=== PATIENT | male | born 1960 | race Caucasian/White ===

== ENCOUNTER 2018-02-16 21:52 | Inpatient (IN) | payer MEDICAID ==
[~2018-02-16] VITALS: Ht 182.9 cm; Wt 90.7 kg
[2018-02-16 22:05] VITALS: BP 112/75
[2018-02-16] MEDS ORDERED: dilTIAZem HCl 25mg/5ml Inj IVP ONE (22:15)
[2018-02-16] MEDS ORDERED: Ampicillin/Sulbactam Sod 3 GM in NS 110 ML IVPB ONE (22:15)
[2018-02-16] MEDS ORDERED: Vancomycin 1 GM in D5W 275 ML IVPB ONE (22:15)
--- NOTE | 2018-02-16 23:09 | Diagnostic Imaging Report ---
EXAM: XR Chest, 1 View CLINICAL HISTORY: SOB TECHNIQUE: Frontal view of the chest. COMPARISON: No relevant prior studies available. FINDINGS: Lungs: Bibasilar subsegmental atelectasis. Pleural space: Unremarkable. No pneumothorax. Heart: Cardiac size is enlarged. Mediastinum: Unremarkable. Bones/joints: Unremarkable. IMPRESSION: Cardiomegaly with bibasilar subsegmental atelectasis.
[2018-02-16 23:34] LABS: BASOPHILS % (AUTO) 1.5 % (0.0-2.0); EOSINOPHILS % (AUTO) 6.1 % (0.0-3.0); HEMOGLOBIN 14.9 G/DL (14.2-18.0); LYMPHOCYTES % (AUTO) 24.8 % (20.0-45.0); MEAN CORPUSCULAR VOLUME 79 FL (80-99); MONOCYTES % (AUTO) 5.5 % (1.0-10.0); NEUTROPHILS % (AUTO) 62.1 % (45.0-75.0); PLATELET COUNT 155 K/UL (150-450); RED BLOOD COUNT 5.68 M/UL (4.70-6.10); RED CELL DISTRIBUTION WIDTH 16.5 % (11.6-14.8); WHITE BLOOD COUNT 7.7 K/UL (4.8-10.8)
[2018-02-16 23:37] LABS: APPEARANCE,URINE CLEAR; BILIRUBIN, URINE NEGATIVE (NEGATIVE); COLOR,URINE PALE YELLOW; GLUCOSE, URINE (UA) 3+ (NEGATIVE); KETONES,URINE NEGATIVE (NEGATIVE); LEUKOCYTE ESTERASE ,URINE NEGATIVE (NEGATIVE); NITRITE,URINE NEGATIVE (NEGATIVE); PH,URINE 5 (4.5-8.0); PROTEIN,URINE NEGATIVE (NEGATIVE); UROBILINOGEN,URINE NORMAL MG/DL (0.0-1.0)
[2018-02-17] MEDS ORDERED: LYRICA75 M1 ORAL (00:16)
[2018-02-17] MEDS ORDERED: IBUPROFEN600 MG ORAL (00:16)
[2018-02-17] MEDS ORDERED: PANTOPRAZOLE SO40 MG ORAL (00:17)
[2018-02-17] MEDS ORDERED: LISINOPRIL10 MG ORAL (00:17)
[2018-02-17] MEDS ORDERED: ATORVASTATIN CA40 MG ORAL (00:17)
[2018-02-17] MEDS ORDERED: BUMETANIDE2 MG ORAL (00:18)
[2018-02-17] MEDS ORDERED: METFORMIN HCL1000 M1 ORAL (00:19)
[2018-02-17 00:27] LABS: ANION GAP 6 mmol/L (5-15); BLOOD UREA NITROGEN 61 mg/dL (7-18); CALCIUM 8.7 MG/DL (8.5-10.1); CARBON DIOXIDE 30 MMOL/L (21-32); CHLORIDE 101 MMOL/L (98-107); CREATININE 1.7 MG/DL (0.55-1.30); POTASSIUM 4.4 MMOL/L (3.5-5.1); SODIUM 137 MMOL/L (136-145)
[2018-02-17 00:41] LABS: ALANINE AMINOTRANSFERASE 31 U/L (12-78); ALBUMIN 3.1 G/DL (3.4-5.0); ALBUMIN/GLOBULIN RATIO 0.6 (1.0-2.7); ALKALINE PHOSPHATASE 190 U/L (46-116); ASPARTATE AMINO TRANSFERASE 22 U/L (15-37); BILIRUBIN,DIRECT 0.7 MG/DL (0.0-0.3); BILIRUBIN,TOTAL 1.3 MG/DL (0.2-1.0); CKMB 3.4 NG/ML (0.0-3.6); CREATINE KINASE 83 U/L (26-308); PHOSPHORUS 2.5 MG/DL (2.5-4.9)
[2018-02-17 01:45] VITALS: BP 114/72
[2018-02-17 03:58] VITALS: BP 101/63
[2018-02-17] MEDS: Metoprolol 25mg tab ORAL SCH ×4 (04:00→22:33)
[2018-02-17] MEDS ORDERED: dilTIAZem HCl 30mg tab ORAL SCH (04:00)
[2018-02-17 05:03] VITALS: BP 109/76
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
[2018-02-17] MEDS ORDERED: Bumetanide 2.5mg/10ml Inj IVP SCH (09:00)
[2018-02-17] MEDS: Lyrica 50mg cap ORAL SCH ×3 (09:00→17:34)
[2018-02-17] MEDS ORDERED: metFORMIN 500mg tab ORAL SCH (09:00)
[2018-02-17] MEDS ORDERED: Lisinopril 10mg tab ORAL SCH (09:00)
[2018-02-17] MEDS ORDERED: Heparin 5000 units/ml inj SUBQ SCH ×2 (09:00→21:00)
[2018-02-17] MEDS ORDERED: Lisinopril 20mg tab ORAL SCH (09:00)
[2018-02-17] MEDS ORDERED: Aspirin Baby 81mg ORAL SCH (09:00)
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
--- NOTE | 2018-02-17 16:00 | History and Physical Report ---
DATE OF ADMISSION: 02/16/2018 HISTORY OF PRESENT ILLNESS: This is a 57-year-old male, who came to the emergency room for having atrial fibrillation with rapid ventricular rate. The patient also had a chest pain. Currently, he is not cooperative and not giving any much history, but he claims he has a history of diabetes and hypertension. MEDICATIONS: He takes medication, does not remember. ALLERGIES: NKA. FAMILY HISTORY: Noncontributory. SOCIAL HISTORY: He claims [facility]. He denies any alcohol and denies any smoking. PHYSICAL EXAMINATION: GENERAL: This is an elderly obese white male, who is currently in the bed, uncooperative and not giving any history. He is also refusing for telemetry bed as well as some medication. VITAL SIGNS: His current blood pressure 109/76, pulse 108, respirations 20, and temperature 98.2 degrees. SKIN: Fair skin turgor. HEENT: No JVD. CHEST: Bilaterally clear. CARDIOVASCULAR: Regular rhythm. No gallop. No murmur. ABDOMEN: Soft. Positive bowel sounds. Nontender. 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 GENITOURINARY: Deferred. LABORATORY AND DIAGNOSTIC DATA: White count 7.7, hemoglobin 15, hematocrit 45, and platelets of 155,000. Chemistry panel, sodium 137, potassium , BUN 61, creatinine 1.7, glucose is 290, and his lactic acid 2.20 to 1.80 and troponin 0.04. ASSESSMENT AND PLAN: 1. Atrial fibrillation with rapid ventricular rate. 2. Acute renal failure. 3. Possible sepsis. 4. Cellulitis. 5. Chest pain. PLAN: We will admit on a tele bed. Rule out of SC. Consider Cardiology consult as well as Nephrology consult. Monitor BUN and creatinine. We will currently continue current treatment. The patient is currently on Lipitor and heparin for DVT prophylaxis. Continue lisinopril, aspirin, Lasix, metformin, metoprolol, Cardizem, and ibuprofen. His heart rate is controlled. The patient probably needs 2D echo and cardiac workup. Tom Cuevas M.D. DR: WILLIAM JOB#: [id number] CC:
[2018-02-17 17:15] VITALS: BP 117/87
[2018-02-17 20:00] VITALS: BP 138/100
[2018-02-17] MEDS ORDERED: Atorvastatin 20mg tab ORAL SCH (21:00)
[2018-02-17] MEDS: NovoLOG Insulin Flexpen SUBQ SCH (22:31)
[2018-02-17] MEDS: Atorvastatin 20mg tab ORAL SCH (22:32)
[2018-02-17] MEDS: dilTIAZem HCl 30mg tab ORAL SCH (22:35)
[2018-02-18] VITALS: BP 125/86
[2018-02-18 04:00] VITALS: BP 98/63
[2018-02-18] MEDS: NovoLOG Insulin Flexpen SUBQ SCH ×4 (06:06→20:32)
[2018-02-18 06:11] LABS: BASOPHILS % (AUTO) 1.6 % (0.0-2.0); EOSINOPHILS % (AUTO) 3.7 % (0.0-3.0); HEMATOCRIT 42.7 % (42.0-52.0); HEMOGLOBIN 13.7 G/DL (14.2-18.0); LYMPHOCYTES % (AUTO) 19.7 % (20.0-45.0); MEAN CORPUSCULAR VOLUME 80 FL (80-99); MONOCYTES % (AUTO) 5.7 % (1.0-10.0); NEUTROPHILS % (AUTO) 69.2 % (45.0-75.0); PLATELET COUNT 140 K/UL (150-450); RED BLOOD COUNT 5.32 M/UL (4.70-6.10); RED CELL DISTRIBUTION WIDTH 16.7 % (11.6-14.8)
[2018-02-18 07:16] LABS: ALANINE AMINOTRANSFERASE 26 U/L (12-78); ALBUMIN 2.6 G/DL (3.4-5.0); ALBUMIN/GLOBULIN RATIO 0.6 (1.0-2.7); ALKALINE PHOSPHATASE 182 U/L (46-116); ANION GAP 9 mmol/L (5-15); ASPARTATE AMINO TRANSFERASE 17 U/L (15-37); BILIRUBIN,TOTAL 1.1 MG/DL (0.2-1.0); BLOOD UREA NITROGEN 43 mg/dL (7-18); CALCIUM 8.6 MG/DL (8.5-10.1); CARBON DIOXIDE 27 MMOL/L (21-32); CHLORIDE 104 MMOL/L (98-107); CHOLESTEROL 62 MG/DL (< 200); CREATININE 1.3 MG/DL (0.55-1.30); FERRITIN 65 NG/ML (8-388); HDL CHOLESTEROL 31 MG/DL (40-60); PHOSPHORUS 2.2 MG/DL (2.5-4.9); POTASSIUM 4.2 MMOL/L (3.5-5.1); SODIUM 140 MMOL/L (136-145); TRIGLYCERIDES 54 MG/DL (30-150)
[2018-02-18 07:19] LABS: BILIRUBIN,DIRECT 0.4 MG/DL (0.0-0.3)
[2018-02-18 08:20] VITALS: BP 110/74
[2018-02-18 08:50] LABS: % IRON SATURATION 10 % (15-50); IRON 31 ug/dL (50-175); TOTAL IRON BINDING CAPACITY 300 ug/dL (250-450)
[2018-02-18] MEDS ORDERED: Lisinopril 2.5mg tab ORAL SCH ×2 (09:00)
[2018-02-18] MEDS: dilTIAZem HCl 30mg tab ORAL SCH ×2 (09:03→20:33)
[2018-02-18] MEDS: Metoprolol 25mg tab ORAL SCH (09:04)
[2018-02-18] MEDS: Lyrica 50mg cap ORAL SCH ×3 (09:04→18:08)
[2018-02-18] MEDS: Eliquis 2.5mg tablet ORAL SCH ×2 (09:05→18:08)
[2018-02-18] MEDS: Aspirin Baby 81mg ORAL SCH (09:05)
--- NOTE | 2018-02-18 09:13 | Consultation ---
Consult Note Consult Note HEMATOLOGY-ONCOLOGY CONSULTATION REFERRING MD: Luis Eduardo Espino REASON FOR CONSULT: Thrombocytopenia DATE OF CONSULT: 02/18/2018 HISTORY OF PRESENT ILLNESS: This is a 57-year-old male, who came to the emergency room for having atrial fibrillation with rapid ventricular rate. The patient also had a chest pain. Currently, he is not cooperative and not giving any much history, but he claims he has a history of diabetes and hypertension. Hematology services consulted for the evaluation of thrombocytopenia and anemia. PAST MEDICAL HISTORY: Hypertension, dm PAST SURGICAL HISTORY: Unknown ALLERGIES: NKA. FAMILY HISTORY: Noncontributory. SOCIAL HISTORY: He claims he lives in [facility]. He denies any alcohol and denies any smoking. ROS: Unable to obtain PHYSICAL EXAMINATION: GENERAL: This is an elderly obese white male, who is currently in the bed, uncooperative and not giving any history. He is also refusing for telemetry bed as well as some medication. VITAL SIGNS: His current blood pressure 109/76, pulse 108, respirations 20, and temperature 98.2 degrees. SKIN: Fair skin turgor. HEENT: No JVD. CHEST: Bilaterally clear. CARDIOVASCULAR: Regular rhythm. No gallop. No murmur. ABDOMEN: Soft. Positive bowel sounds. Nontender. 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 GENITOURINARY: Deferred. Last 24 Hour Vital Signs Date Time Temp Pulse Resp B/P (MAP) Pulse Ox O2 Delivery O2 Flow Rate FiO2 02/18/18 08:20 98.0 114 18 110/74 (86) 97 02/18/18 04:00 97.4 83 18 98/63 (75) 98 02/18/18 00:00 98.2 130 17 125/86 (99) 95 02/17/18 22:35 130 138/100 02/17/18 22:33 130 138/100 02/17/18 21:00 Room Air 02/17/18 20:00 98.9 132 17 138/100 (113) 99 130 02/17/18 17:15 97.9 115 18 117/87 (97) 100 Current Medications Medications (Trade) Dose Ordered Sig/Roseline Route PRN Reason Start Time Stop Time Status Last Admin Dose Admin Apixaban (Eliquis) 5 mg BID ORAL 02/18/18 09:00 12/18/18 08:59 Aspirin (ASA) 81 mg DAILY ORAL 02/18/18 09:00 03/19/18 08:59 Atorvastatin Calcium (Lipitor) 40 mg BEDTIME ORAL 02/17/18 21:00 03/19/18 20:59 02/17/18 22:32 Dextrose (Dextrose 50%) 25 ml Q30M PRN IV Hypoglycemia 02/17/18 22:00 03/19/18 21:59 Dextrose (Dextrose 50%) 50 ml Q30M PRN IV Hypoglycemia 02/17/18 14:30 03/19/18 02:59 Dextrose (Dextrose 50%) 50 ml Q30M PRN IV Hypoglycemia 02/17/18 22:00 03/19/18 21:59 Diltiazem HCl (Cardizem) 15 mg BID@0900,2100 ORAL 02/17/18 21:00 03/19/18 03:59 02/17/18 22:35 Insulin Aspart (NovoLOG) BEFORE MEALS AND HS SUBQ 02/18/18 06:30 03/20/18 06:29 02/18/18 06:06 Lisinopril (Zestril) 5 mg DAILY ORAL 02/18/18 09:00 03/19/18 08:59 Metoprolol Tartrate (Lopressor) 25 mg EVERY 12 HOURS ORAL 02/17/18 21:00 03/19/18 03:59 02/17/18 22:33 Nateglinide (Starlix) 120 mg TIAC ORAL 02/17/18 16:30 03/19/18 16:29 02/18/18 06:06 Pantoprazole (Protonix) 40 mg BEFORE BREAKFAST ORAL 02/18/18 06:30 03/19/18 06:29 02/18/18 06:07 Pregabalin (Lyrica) 100 mg THREE TIMES A DAY ORAL 02/17/18 18:00 03/19/18 08:59 02/17/18 17:34 Sodium Chloride 1,000 ml @ 75 mls/hr [id number] IV 02/17/18 20:25 03/19/18 20:24 02/17/18 22:40 Laboratory Tests Test 02/18/18 05:05 White Blood Count 8.0 K/UL (4.8-10.8) Red Blood Count 5.32 M/UL (4.70-6.10) Hemoglobin 13.7 G/DL (14.2-18.0) L Hematocrit 42.7 % (42.0-52.0) Mean Corpuscular Volume 80 FL (80-99) Mean Corpuscular Hemoglobin 25.8 PG (27.0-31.0) L Mean Corpuscular Hemoglobin Concent 32.2 G/DL (32.0-36.0) Red Cell Distribution Width 16.7 % (11.6-14.8) H Platelet Count 140 K/UL (150-450) L Mean Platelet Volume 8.8 FL (6.5-10.1) Neutrophils (%) (Auto) 69.2 % (45.0-75.0) Lymphocytes (%) (Auto) 19.7 % (20.0-45.0) L Monocytes (%) (Auto) 5.7 % (1.0-10.0) Eosinophils (%) (Auto) 3.7 % (0.0-3.0) H Basophils (%) (Auto) 1.6 % (0.0-2.0) Sodium Level 140 MMOL/L (136-145) Potassium Level 4.2 MMOL/L (3.5-5.1) Chloride Level 104 MMOL/L (98-107) Carbon Dioxide Level 27 MMOL/L (21-32) Anion Gap 9 mmol/L (5-15) Blood Urea Nitrogen 43 mg/dL (7-18) H Creatinine 1.3 MG/DL (0.55-1.30) Estimat Glomerular Filtration Rate 57.3 mL/min (>60) Glucose Level 213 MG/DL (74-106) H Hemoglobin A1c 9.8 % (4.3-6.0) H Uric Acid 9.7 MG/DL (2.6-7.2) H Calcium Level 8.6 MG/DL (8.5-10.1) Phosphorus Level 2.2 MG/DL (2.5-4.9) L Magnesium Level 1.7 MG/DL (1.8-2.4) L Iron Level Pending Unsaturated Iron Binding Pending Ferritin 65 NG/ML (8-388) Total Bilirubin 1.1 MG/DL (0.2-1.0) H Direct Bilirubin 0.4 MG/DL (0.0-0.3) H Aspartate Amino Transf (AST/SGOT) 17 U/L (15-37) Alanine Aminotransferase (ALT/SGPT) 26 U/L (12-78) Alkaline Phosphatase 182 U/L (46-116) H Troponin I 0.033 ng/mL (0.000-0.056) Pro-B-Type Natriuretic Peptide 4503 pg/mL (0-125) H Total Protein 7.1 G/DL (6.4-8.2) Albumin 2.6 G/DL (3.4-5.0) L Globulin 4.5 g/dL Albumin/Globulin Ratio 0.6 (1.0-2.7) L Triglycerides Level 54 MG/DL (30-150) Cholesterol Level 62 MG/DL (< 200) LDL Cholesterol 40 mg/dL (<100) HDL Cholesterol 31 MG/DL (40-60) L Cholesterol/HDL Ratio 2.0 (3.3-4.4) L Vitamin B12 Level Pending Folate Pending Thyroid Stimulating Hormone (TSH) 2.139 uiU/mL (0.358-3.740) ASSESSMENT AND PLAN: # Thrombocytopenia. Potential causes multifactorial. Evaluate liver and viral etiologies to begin. Also could be related to underlying medications. --> Cont to monitor for improvement --> Peripheral smear has been reviewed, no blasts --> Hep panel and HIV have been ordered. --> US abd to evaluate for cirrhosis and hsm ordered. --> Meds have been reviewed. --> ok for ppx if plt count <20k and fever, or if plt <10k without fever # Anemia. Mild, hgb currently >13, no w/u required at this time. --> Cont to monitor for stability # Atrial fibrillation with rapid ventricular rate. --> Pt in tele unit --> The patient is currently on Lipitor and heparin for DVT prophylaxis. --> HR is controlled # Acute renal failure. --> Monitor BUN and creatinine # Possible sepsis. # Cellulitis. # Chest pain. GREATLY APPRECIATE CONSULTATION Javier Lujan MD Feb 18, 2018 09:13
[2018-02-18] MEDS: Norco 5mg/325mg tab ORAL PRN ×2 (11:21→18:56)
[2018-02-18 12:00] VITALS: BP 108/76
[2018-02-18] MEDS ORDERED: Isovue-370 150ml vial INJ PRN (13:45)
--- NOTE | 2018-02-18 13:46 | Nephrology Progress Note ---
Assessment/Plan Problem List: (1) Hyperglycemia (2) Drug abuse (3) Acute renal failure Assessment Renal failure- Acute on Chronic Urine + amphetamin and THC Hyperglycemia Obesity Plan adjust BP meds and BS meds 2D echo [facility] monitor renal parameters Avoid Nephrotoxics Subjective ROS Limited/Unobtainable: No Objective Objective Last 24 Hour Vital Signs Date Time Temp Pulse Resp B/P (MAP) Pulse Ox O2 Delivery O2 Flow Rate FiO2 02/18/18 12:00 97.4 96 20 108/76 (87) 98 02/18/18 09:05 110/74 02/18/18 09:04 114 110/74 02/18/18 09:03 114 110/74 02/18/18 09:00 Room Air 02/18/18 08:20 98.0 114 18 110/74 (86) 97 02/18/18 04:00 97.4 83 18 98/63 (75) 98 02/18/18 00:00 98.2 130 17 125/86 (99) 95 02/17/18 22:35 130 138/100 02/17/18 22:33 130 138/100 02/17/18 21:00 Room Air 02/17/18 20:00 98.9 132 17 138/100 (113) 99 130 02/17/18 17:15 97.9 115 18 117/87 (97) 100 Intake and Output 02/17/18 02/18/18 19:00 07:00 Intake Total 240 ml 2565 ml Output Total 1000 ml Balance 240 ml 1565 ml Intake Oral 240 ml 1440 ml IV Total 525 ml Other 600 ml Output Urine Total 1000 ml # Voids 2 3 Laboratory Tests 02/18/18 05:05: White Blood Count 8.0, Red Blood Count 5.32, Hemoglobin 13.7L, Hematocrit 42.7, Mean Corpuscular Volume 80, Mean Corpuscular Hemoglobin 25.8L, Mean Corpuscular Hemoglobin Concent 32.2, Red Cell Distribution Width 16.7H, Platelet Count 140L , Mean Platelet Volume 8.8, Neutrophils (%) (Auto) 69.2, Lymphocytes (%) (Auto) 19.7L, Monocytes (%) (Auto) 5.7, Eosinophils (%) (Auto) 3.7H, Basophils (%) ( Auto) 1.6, Sodium Level 140, Potassium Level 4.2, Chloride Level 104, Carbon Dioxide Level 27, Anion Gap 9, Blood Urea Nitrogen 43H, Creatinine 1.3, Estimat Glomerular Filtration Rate 57.3, Glucose Level 213H, Hemoglobin A1c 9.8H, Uric Acid 9.7H, Calcium Level 8.6, Phosphorus Level 2.2L, Magnesium Level 1.7L, Iron Level 31L, Total Iron Binding Capacity 300, Percent Iron Saturation 10L, Unsaturated Iron Binding 269, Ferritin 65, Total Bilirubin 1.1H, Direct Bilirubin 0.4H, Aspartate Amino Transf (AST/SGOT) 17, Alanine Aminotransferase ( ALT/SGPT) 26, Alkaline Phosphatase 182H, Troponin I 0.033, Pro-B-Type Natriuretic Peptide 4503H, Total Protein 7.1, Albumin 2.6L, Globulin 4.5, Albumin/Globulin Ratio 0.6L, Triglycerides Level 54, Cholesterol Level 62, LDL Cholesterol 40, HDL Cholesterol 31L, Cholesterol/HDL Ratio 2.0L, Vitamin B12 Level 769, Folate 13.0, Thyroid Stimulating Hormone (TSH) 2.139 Height (Feet): 6 Height (Inches): 0.00 Weight (Pounds): 200 General Appearance: no apparent distress Cardiovascular: tachycardia Respiratory/Chest: decreased breath sounds Abdomen: soft Jordon Bernard MD Feb 18, 2018 13:46
[2018-02-18] MEDS: Phospha 250 Neutral tab ORAL SCH ×2 (13:48→18:08)
[2018-02-18] MEDS: Magnesium Oxide 400mg tab ORAL SCH ×2 (13:48→18:08)
--- NOTE | 2018-02-18 15:00 | Progress Note ---
DATE: 02/18/2018 SUBJECTIVE: This is an elderly male, currently sitting in the bed, more cooperative, now complaining of left-sided lower rib pain as well as atrial fibrillation with rapid ventricular rate, refusing for monitor. PHYSICAL EXAMINATION: VITAL SIGNS: Blood pressure 108/76, pulse 96, temperature 97.4 degrees. Heart rate is better. CHEST: Bilaterally clear. CARDIOVASCULAR: Regular rhythm. ABDOMEN: Soft. EXTREMITIES: erythema and edema. GENITOURINARY: Deferred. LABORATORY AND DIAGNOSTIC DATA: White counts 8000, hemoglobin 14, hematocrit 42, platelets 140. Chemistry panel, sodium 140, potassium 4.2, BUN 43, creatinine 1.3, glucose 213. Lactic acid is improving. ASSESSMENT: 1. Chest pain. 2. Leg edema. 3. Cellulitis. 4. Generalized weakness. PLAN: 1. We will discuss with the patient. 2. We will currently continue his medical treatment. 3. Continue antibiotics. 4. He has IV line now. 5. Continue Tylenol. 6. Continue and lisinopril. 7. Check chest x-ray and x-ray for rib film. 8. Continue supportive treatment. Tom Cuevas M.D. DR: Efrain JOB#: [id number] CC:
[2018-02-18 16:00] VITALS: BP 123/75
[2018-02-18 19:58] VITALS: BP 111/69
--- NOTE | 2018-02-18 20:17 | Cardiology Progress Note ---
Assessment/Plan Assessment/Plan The patient is seen and examined, full consult note will be dictated. Objective Last 24 Hour Vital Signs Date Time Temp Pulse Resp B/P (MAP) Pulse Ox O2 Delivery O2 Flow Rate FiO2 02/18/18 19:58 97.5 113 17 111/69 (83) 98 02/18/18 16:00 97.6 75 20 123/75 (91) 98 02/18/18 12:00 97.4 96 20 108/76 (87) 98 02/18/18 09:05 110/74 02/18/18 09:04 114 110/74 02/18/18 09:03 114 110/74 02/18/18 09:00 Room Air 02/18/18 08:20 98.0 114 18 110/74 (86) 97 02/18/18 04:00 97.4 83 18 98/63 (75) 98 02/18/18 00:00 98.2 130 17 125/86 (99) 95 02/17/18 22:35 130 138/100 02/17/18 22:33 130 138/100 02/17/18 21:00 Room Air Intake and Output 02/17/18 02/18/18 19:00 07:00 Intake Total 240 ml 2565 ml Output Total 1000 ml Balance 240 ml 1565 ml Intake Oral 240 ml 1440 ml IV Total 525 ml Other 600 ml Output Urine Total 1000 ml # Voids 2 3 Laboratory Tests Test 02/18/18 05:05 White Blood Count 8.0 K/UL (4.8-10.8) Red Blood Count 5.32 M/UL (4.70-6.10) Hemoglobin 13.7 G/DL (14.2-18.0) L Hematocrit 42.7 % (42.0-52.0) Mean Corpuscular Volume 80 FL (80-99) Mean Corpuscular Hemoglobin 25.8 PG (27.0-31.0) L Mean Corpuscular Hemoglobin Concent 32.2 G/DL (32.0-36.0) Red Cell Distribution Width 16.7 % (11.6-14.8) H Platelet Count 140 K/UL (150-450) L Mean Platelet Volume 8.8 FL (6.5-10.1) Neutrophils (%) (Auto) 69.2 % (45.0-75.0) Lymphocytes (%) (Auto) 19.7 % (20.0-45.0) L Monocytes (%) (Auto) 5.7 % (1.0-10.0) Eosinophils (%) (Auto) 3.7 % (0.0-3.0) H Basophils (%) (Auto) 1.6 % (0.0-2.0) Sodium Level 140 MMOL/L (136-145) Potassium Level 4.2 MMOL/L (3.5-5.1) Chloride Level 104 MMOL/L (98-107) Carbon Dioxide Level 27 MMOL/L (21-32) Anion Gap 9 mmol/L (5-15) Blood Urea Nitrogen 43 mg/dL (7-18) H Creatinine 1.3 MG/DL (0.55-1.30) Estimat Glomerular Filtration Rate 57.3 mL/min (>60) Glucose Level 213 MG/DL (74-106) H Hemoglobin A1c 9.8 % (4.3-6.0) H Uric Acid 9.7 MG/DL (2.6-7.2) H Calcium Level 8.6 MG/DL (8.5-10.1) Phosphorus Level 2.2 MG/DL (2.5-4.9) L Magnesium Level 1.7 MG/DL (1.8-2.4) L Iron Level 31 ug/dL (50-175) L Total Iron Binding Capacity 300 ug/dL (250-450) Percent Iron Saturation 10 % (15-50) L Unsaturated Iron Binding 269 ug/dL (112-346) Ferritin 65 NG/ML (8-388) Total Bilirubin 1.1 MG/DL (0.2-1.0) H Direct Bilirubin 0.4 MG/DL (0.0-0.3) H Aspartate Amino Transf (AST/SGOT) 17 U/L (15-37) Alanine Aminotransferase (ALT/SGPT) 26 U/L (12-78) Alkaline Phosphatase 182 U/L (46-116) H Troponin I 0.033 ng/mL (0.000-0.056) Pro-B-Type Natriuretic Peptide 4503 pg/mL (0-125) H Total Protein 7.1 G/DL (6.4-8.2) Albumin 2.6 G/DL (3.4-5.0) L Globulin 4.5 g/dL Albumin/Globulin Ratio 0.6 (1.0-2.7) L Triglycerides Level 54 MG/DL (30-150) Cholesterol Level 62 MG/DL (< 200) LDL Cholesterol 40 mg/dL (<100) HDL Cholesterol 31 MG/DL (40-60) L Cholesterol/HDL Ratio 2.0 (3.3-4.4) L Vitamin B12 Level 769 PG/ML (193-986) Folate 13.0 NG/ML (8.6-58.9) Thyroid Stimulating Hormone (TSH) 2.139 uiU/mL (0.358-3.740) Microbiology Date/Time Source Procedure Growth Status 02/17/18 06:50 Rectum Gram Stain - Final Resulted 02/17/18 06:50 Rectum Wound Culture Pending Resulted 02/17/18 00:36 Rectum Received Sudarshan Stuart MD Feb 18, 2018 20:17
[2018-02-18] MEDS: Atorvastatin 20mg tab ORAL SCH (20:33)
[2018-02-18] MEDS ORDERED: Digoxin 0.125mg tab ORAL SCH (20:45)
[2018-02-18] MEDS ORDERED: Metoprolol Tartrate 50mg tab ORAL SCH (21:00)
[2018-02-18] MEDS: Spironolactone 25mg tab ORAL SCH (21:07)
[2018-02-18] MEDS: Carvedilol 6.25mg Tab ORAL SCH (21:07)
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
[2018-02-19 00:14] VITALS: BP 109/73
[2018-02-19 04:00] VITALS: BP 109/61
[2018-02-19] MEDS: NovoLOG Insulin Flexpen SUBQ SCH ×4 (05:48→20:43)
[2018-02-19 08:00] VITALS: BP 101/67
[2018-02-19] MEDS: Lyrica 50mg cap ORAL SCH ×3 (09:07→17:14)
[2018-02-19] MEDS: Magnesium Oxide 400mg tab ORAL SCH ×3 (09:07→17:14)
[2018-02-19] MEDS: Phospha 250 Neutral tab ORAL SCH ×3 (09:07→17:14)
[2018-02-19] MEDS: Aspirin Baby 81mg ORAL SCH (09:07)
[2018-02-19] MEDS: Carvedilol 6.25mg Tab ORAL SCH ×2 (09:08→20:30)
[2018-02-19] MEDS: Spironolactone 25mg tab ORAL SCH (09:08)
[2018-02-19] MEDS: Eliquis 2.5mg tablet ORAL SCH ×2 (09:41→17:14)
--- NOTE | 2018-02-19 11:05 | Nephrology Progress Note ---
Assessment/Plan Problem List: (1) Hyperglycemia (2) Drug abuse (3) Acute renal failure Assessment Renal failure- Acute on Chronic Urine + amphetamin and THC Hyperglycemia Obesity Plan adjust BP meds and BS meds 2D echo Kidney [facility] monitor renal parameters Avoid Nephrotoxics Subjective ROS Limited/Unobtainable: No Constitutional: Reports: malaise Objective Objective Last 24 Hour Vital Signs Date Time Temp Pulse Resp B/P (MAP) Pulse Ox O2 Delivery O2 Flow Rate FiO2 02/19/18 09:08 123 101/67 02/19/18 09:00 Room Air 02/19/18 08:00 97.3 123 18 101/67 (78) 100 02/19/18 04:00 96.4 102 20 109/61 (77) 100 02/19/18 00:14 98.2 99 19 109/73 (85) 90 02/18/18 21:19 Room Air 02/18/18 21:07 113 02/18/18 21:07 113 111/69 02/18/18 20:33 113 111/69 02/18/18 20:33 113 111/69 02/18/18 19:58 97.5 113 17 111/69 (83) 98 02/18/18 16:00 97.6 75 20 123/75 (91) 98 02/18/18 12:00 97.4 96 20 108/76 (87) 98 Intake and Output 02/18/18 02/19/18 19:00 07:00 Intake Total 800 ml Output Total 600 ml Balance 200 ml Intake Oral 800 ml Output Urine Total 600 ml # Voids 1 Laboratory Tests 02/19/18 09:35: Troponin I 0.026 Height (Feet): 6 Height (Inches): 0.00 Weight (Pounds): 200 General Appearance: no apparent distress, lethargic Objective no change Jordon Bernard MD Feb 19, 2018 11:05
[2018-02-19 12:00] VITALS: BP 114/77
--- NOTE | 2018-02-19 12:32 | General Progress Note ---
Assessment/Plan Status: stable Assessment/Plan # Thrombocytopenia. Potential causes multifactorial. Evaluate liver and viral etiologies to begin. Also could be related to underlying medications. --> Cont to monitor for improvement --> Peripheral smear has been reviewed, no blasts --> Hep panel and HIV have been ordered - pending --> US abd to evaluate for cirrhosis and hsm ordered - pending --> Meds have been reviewed. --> ok for ppx if plt count <20k and fever, or if plt <10k without fever # Anemia. Mild, hgb currently >13, no w/u required at this time. --> Cont to monitor for stability # Atrial fibrillation with rapid ventricular rate. --> Pt in tele unit --> The patient is currently on Lipitor and heparin for DVT prophylaxis. --> HR is controlled # Acute renal failure. --> Monitor BUN and creatinine # Possible sepsis. # Cellulitis. # Chest pain. GREATLY APPRECIATE CONSULTATION Subjective Date patient seen: Feb 19, 2018 Allergies: Coded Allergies: No Known Allergies (Unverified , 02/16/18) All Systems: reviewed and negative except above Subjective Pt resting in bed. No acute events. Objective Last 24 Hour Vital Signs Date Time Temp Pulse Resp B/P (MAP) Pulse Ox O2 Delivery O2 Flow Rate FiO2 02/19/18 12:00 97.0 106 18 114/77 (89) 100 02/19/18 09:08 123 101/67 02/19/18 09:00 Room Air 02/19/18 08:00 97.3 123 18 101/67 (78) 100 02/19/18 04:00 96.4 102 20 109/61 (77) 100 02/19/18 00:14 98.2 99 19 109/73 (85) 90 02/18/18 21:19 Room Air 02/18/18 21:07 113 02/18/18 21:07 113 111/69 02/18/18 20:33 113 111/69 02/18/18 20:33 113 111/69 02/18/18 19:58 97.5 113 17 111/69 (83) 98 02/18/18 16:00 97.6 75 20 123/75 (91) 98 Intake and Output 02/18/18 02/19/18 19:00 07:00 Intake Total 800 ml Output Total 600 ml Balance 200 ml Intake Oral 800 ml Output Urine Total 600 ml # Voids 1 Laboratory Tests 02/19/18 09:35: Troponin I 0.026 Height (Feet): 6 Height (Inches): 0.00 Weight (Pounds): 200 Objective PHYSICAL EXAMINATION: GENERAL: This is an elderly obese white male, VITAL SIGNS: Have been reviewed SKIN: Fair skin turgor. HEENT: No JVD. CHEST: Bilaterally clear. CARDIOVASCULAR: Regular rhythm. No gallop. No murmur. ABDOMEN: Soft. Positive bowel sounds. Nontender. 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 GENITOURINARY: Deferred. Javier Lujan MD Feb 19, 2018 12:32
[2018-02-19] MEDS ORDERED: ASPIRIN-LOW81 MG ORAL (15:09)
[2018-02-19] MEDS ORDERED: LIPITOR40 MG ORAL (15:10)
[2018-02-19] MEDS ORDERED: LEVAQUIN500 MG ORAL (15:10)
[2018-02-19 16:00] VITALS: BP 123/75
--- NOTE | 2018-02-19 16:50 | Diagnostic Imaging Report ---
Indication: Left rib pain Technique: 2 views of the left ribs Comparison: none Findings: No acute fractures. No dislocations. No gross pneumothorax demonstrated. Impression: Negative
[2018-02-19 20:00] VITALS: BP 103/78
[2018-02-19] MEDS: Atorvastatin 20mg tab ORAL SCH (20:38)
--- NOTE | 2018-02-19 21:00 | Progress Note ---
DATE: 02/19/2018 SUBJECTIVE: This is an elderly male, currently sleeping, has ulcers on both feet and multiple ulcers. No short of breath. OBJECTIVE: VITAL SIGNS: Blood pressure 114/77 and pulse 106. No fever. CHEST: Bilaterally clear. CARDIOVASCULAR: Regular rhythm. No gallop. No murmur. ABDOMEN: Soft. EXTREMITIES: Trace edema and foot ulcer. ASSESSMENT: 1. Atrial fibrillation with rapid ventricular rate is resolved. 2. Congestive heart failure. 3. Comorbid obesity. 4. Peripheral vascular disease. PLAN: We will currently continue aspirin and apixaban. Continue Levaquin p.o. Continue carvedilol and Protonix. Follow up as an outpatient. Discharge plan to [facility]. Tom Cuevas M.D. DR: GISELL JOB#: [id number] CC:
--- NOTE | 2018-02-19 23:34 | Cardiology Progress Note ---
Assessment/Plan Assessment/Plan 1. Acute on chronic systolic and diastolic heart failure with LVEF at 25%, increase carvedilol, will continue digoxin. Will start low dose ACEI. 2. Atrial fibrillation with controlled ventricular response, continue carvedilol and digoxin as well as Eliquis given Chads Vasc score of 3. Subjective Subjective No cardiac events. Objective Last 24 Hour Vital Signs Date Time Temp Pulse Resp B/P (MAP) Pulse Ox O2 Delivery O2 Flow Rate FiO2 02/19/18 21:00 Room Air 02/19/18 20:30 95 103/78 02/19/18 20:00 97.9 95 20 103/78 (86) 89 02/19/18 16:00 97.6 75 20 123/75 (91) 98 02/19/18 12:00 97.0 106 18 114/77 (89) 100 02/19/18 09:08 123 101/67 02/19/18 09:00 Room Air 02/19/18 08:00 97.3 123 18 101/67 (78) 100 02/19/18 04:00 96.4 102 20 109/61 (77) 100 02/19/18 00:14 98.2 99 19 109/73 (85) 90 Intake and Output 02/18/18 02/19/18 19:00 07:00 Intake Total 800 ml Output Total 600 ml Balance 200 ml Intake Oral 800 ml Output Urine Total 600 ml # Voids 1 2D Echo: LVEF 25%, Bi-atrial enlargement, Mild MR, RVSP 24 mmHg, RAP 15 mmHg Laboratory Tests Test 02/19/18 09:35 Troponin I 0.026 ng/mL (0.000-0.056) Microbiology Date/Time Source Procedure Growth Status 02/17/18 00:36 Nasal Nares MRSA Culture - Final Staphylococcus Aureus - Mrsa Complete 02/17/18 06:50 Rectum Gram Stain - Final Resulted 02/17/18 06:50 Wound Culture - Preliminary Gram Positive Cocci Diphtheroids Resulted 02/17/18 00:36 Rectum VRE Culture - Final NO VANCOMYCIN RESISTANT ENTEROCOCCUS ... Complete 02/17/18 00:36 Rectum - Final NO CARBAPENEM-RESISTANT ENTEROBACTERI... Complete Objective HEENT: Atraumatic and normocephalic. Anicteric. Pupils are equal, round, and reactive to light and accommodation. Extraocular muscles intact. NECK: JVP elevated about 25 cm. No carotid bruits. Carotid upstrokes 2+ bilaterally. CARDIOVASCULAR: Normal S1, S2. Irregularly irregular rhythm. Cannot appreciate murmur, gallop, or rub. LUNGS: Diminished deep inspiration, secondary to chest wall pain, but appears to be clear. ABDOMEN: Soft, nontender, and nondistended. No hepatosplenomegaly. Positive bowel sounds. EXTREMITIES: There is 2+ to 3+ bilateral lower extremity edema with ulcerations, discrete lesions over both shins, as well as presence of foot ulcer on the left side. Sudarshan Stuart MD Feb 19, 2018 23:34
[2018-02-20] VITALS: BP 110/79
[2018-02-20 04:00] VITALS: BP 118/68
[2018-02-20] MEDS: NovoLOG Insulin Flexpen SUBQ SCH ×2 (06:13→12:06)
[2018-02-20 08:19] VITALS: BP 105/76
[2018-02-20] MEDS: Eliquis 2.5mg tablet ORAL SCH (08:27)
[2018-02-20] MEDS: Phospha 250 Neutral tab ORAL SCH ×2 (08:27→12:03)
[2018-02-20] MEDS: Magnesium Oxide 400mg tab ORAL SCH ×2 (08:27→12:03)
[2018-02-20] MEDS: Aspirin Baby 81mg ORAL SCH (08:27)
[2018-02-20] MEDS: Lyrica 50mg cap ORAL SCH ×2 (08:28→12:05)
[2018-02-20] MEDS: Spironolactone 25mg tab ORAL SCH (08:31)
[2018-02-20] MEDS ORDERED: Lisinopril 2.5mg tab ORAL SCH (09:00)
[2018-02-20] MEDS ORDERED: Carvedilol 6.25mg Tab ORAL SCH (09:00)
--- NOTE | 2018-02-20 09:30 | Nephrology Progress Note ---
Assessment/Plan Problem List: (1) Hyperglycemia (2) Drug abuse (3) Acute renal failure Assessment Renal failure- Acute on Chronic Urine + amphetamin and THC Hyperglycemia Obesity Plan no labs yet adjust BP meds and BS meds 2D echo [facility] monitor renal parameters Avoid Nephrotoxics Subjective ROS Limited/Unobtainable: No Objective Objective Last 24 Hour Vital Signs Date Time Temp Pulse Resp B/P (MAP) Pulse Ox O2 Delivery O2 Flow Rate FiO2 02/20/18 08:31 105/76 02/20/18 08:27 118 105/76 02/20/18 08:19 97.5 118 19 105/76 (86) 95 02/20/18 04:00 98.0 91 22 118/68 (85) 94 02/20/18 00:00 98.2 97 22 110/79 (89) 94 02/19/18 21:00 Room Air 02/19/18 20:30 95 103/78 02/19/18 20:00 97.9 95 20 103/78 (86) 89 02/19/18 16:00 97.6 75 20 123/75 (91) 98 02/19/18 12:00 97.0 106 18 114/77 (89) 100 Intake and Output 02/19/18 02/20/18 18:59 06:59 Intake Total 720 ml Balance 720 ml Intake Oral 720 ml # Voids 3 Laboratory Tests 02/19/18 09:35: Troponin I 0.026 Height (Feet): 6 Height (Inches): 0.00 Weight (Pounds): 200 General Appearance: no apparent distress Objective no change Jordon Bernard MD Feb 20, 2018 09:30
[2018-02-20 11:45] LABS: BASOPHILS % (AUTO) 2.7 % (0.0-2.0); EOSINOPHILS % (AUTO) 4.4 % (0.0-3.0); HEMATOCRIT 43.5 % (42.0-52.0); HEMOGLOBIN 14.5 G/DL (14.2-18.0); LYMPHOCYTES % (AUTO) 24.7 % (20.0-45.0); MEAN CORPUSCULAR VOLUME 80 FL (80-99); MONOCYTES % (AUTO) 6.3 % (1.0-10.0); NEUTROPHILS % (AUTO) 61.9 % (45.0-75.0); PLATELET COUNT 134 K/UL (150-450)
[2018-02-20 12:00] VITALS: BP 122/67
[2018-02-20 12:24] LABS: ALANINE AMINOTRANSFERASE 25 U/L (12-78); ALBUMIN 2.5 G/DL (3.4-5.0); ALBUMIN/GLOBULIN RATIO 0.6 (1.0-2.7); ALKALINE PHOSPHATASE 185 U/L (46-116); ANION GAP 10 mmol/L (5-15); ASPARTATE AMINO TRANSFERASE 20 U/L (15-37); BILIRUBIN,DIRECT 0.6 MG/DL (0.0-0.3); BILIRUBIN,TOTAL 1.8 MG/DL (0.2-1.0); BLOOD UREA NITROGEN 30 mg/dL (7-18); CALCIUM 8.5 MG/DL (8.5-10.1); CARBON DIOXIDE 23 MMOL/L (21-32); CHLORIDE 104 MMOL/L (98-107); CREATININE 1.1 MG/DL (0.55-1.30); PHOSPHORUS 3.4 MG/DL (2.5-4.9); POTASSIUM 4.5 MMOL/L (3.5-5.1); SODIUM 137 MMOL/L (136-145)
--- NOTE | 2018-02-20 16:09 | Cardiology Report ---
APPROVED REPORT EXAM: Two-dimensional and M-mode echocardiogram with Doppler and color Doppler. INDICATION Congestive Heart Failure M-Mode DIMENSIONS IVSd1.9 (0.7-1.1cm)Left Atrium (MM)5.2 (1.6-4.0cm) LVDd6.5 (3.5-5.6cm)Aortic Root4.1 (2.0-3.7cm) PWd1.3 (0.7-1.1cm)Aortic Cusp Exc.2.0 (1.5-2.0cm) IVSs1.7 cm LVDs5.6 (2.5-4.0cm) PWs1.9 cm Global left ventricular hypokinesis. Mild left atrial enlargement . Left ventricular ejection fraction estimated to be 25-30%. No evidence of left ventricular hypertrophy . No evidence of pericardial effusion. Mild bi-atrial enlargement . Right ventricular chamber sizes is within normal limits. Thickened mitral valve leaflets with normal excursion. Mitral annulus and aortic root calcification. Normal pulmonic valve structure. Normal tricuspid valve structure. IVC dilated at size 2.5 cm without physiologic collapse, suggestive to increase RA pressure . A color flow and spectral Doppler study was performed and revealed: No aortic regurgitation.. Mild to moderate mitral regurgitation. Mild tricuspid regurgitation. Tricuspid systolic velocities suggests peak right ventricular systolic pressure of 24mmHg. No Pulmonic regurgitation present.
--- NOTE | 2018-02-20 19:00 | Discharge Summary ---
DATE OF ADMISSION: 02/16/2018 DATE OF DISCHARGE: 02/20/2018 SUBJECTIVE: This is an elderly male, who came from [facility] for cellulitis and leg edema. The patient is currently alert and awake. Leg edema is improving. His leg ulcer is also healing. The patient is physically doing better. He came with the chest pain and his peak troponins are negative. DISCHARGE DIAGNOSES: Cellulitis and nonhealing ulcer. DISCHARGE INSTRUCTIONS: The patient is [facility] to [facility]. Follow up as outpatient. Tom Cuevas M.D. DR: GISELL JOB#: [id number] CC:
--- NOTE | 2018-02-20 23:00 | Cardiology Progress Note ---
Assessment/Plan Assessment/Plan 1. Acute on chronic systolic and diastolic heart failure with LVEF at 25%, continue carvedilol, digoxin and lisinopril. 2. Atrial fibrillation with controlled ventricular response, continue carvedilol , digoxin as well as Eliquis given Chads Vasc score of 3. Subjective Subjective No cardiac events. Clinically the same. Objective Last 24 Hour Vital Signs Date Time Temp Pulse Resp B/P (MAP) Pulse Ox O2 Delivery O2 Flow Rate FiO2 02/20/18 12:00 95.1 108 20 122/67 (85) 94 02/20/18 09:52 Room Air 02/20/18 08:31 105/76 02/20/18 08:27 118 105/76 02/20/18 08:19 97.5 118 19 105/76 (86) 95 02/20/18 04:00 98.0 91 22 118/68 (85) 94 02/20/18 00:00 98.2 97 22 110/79 (89) 94 Intake and Output 02/19/18 02/20/18 19:00 07:00 Intake Total 720 ml Balance 720 ml Intake Oral 720 ml # Voids 3 2D Echo: LVEF 25%, Bi-atrial enlargement, Mild MR, RVSP 24 mmHg, RAP 15 mmHg Laboratory Tests Test 02/20/18 11:15 White Blood Count 7.0 K/UL (4.8-10.8) Red Blood Count 5.40 M/UL (4.70-6.10) Hemoglobin 14.5 G/DL (14.2-18.0) Hematocrit 43.5 % (42.0-52.0) Mean Corpuscular Volume 80 FL (80-99) Mean Corpuscular Hemoglobin 26.8 PG (27.0-31.0) L Mean Corpuscular Hemoglobin Concent 33.3 G/DL (32.0-36.0) Red Cell Distribution Width 17.0 % (11.6-14.8) H Platelet Count 134 K/UL (150-450) L Mean Platelet Volume 8.7 FL (6.5-10.1) Neutrophils (%) (Auto) 61.9 % (45.0-75.0) Lymphocytes (%) (Auto) 24.7 % (20.0-45.0) Monocytes (%) (Auto) 6.3 % (1.0-10.0) Eosinophils (%) (Auto) 4.4 % (0.0-3.0) H Basophils (%) (Auto) 2.7 % (0.0-2.0) H Sodium Level 137 MMOL/L (136-145) Potassium Level 4.5 MMOL/L (3.5-5.1) Chloride Level 104 MMOL/L (98-107) Carbon Dioxide Level 23 MMOL/L (21-32) Anion Gap 10 mmol/L (5-15) Blood Urea Nitrogen 30 mg/dL (7-18) H Creatinine 1.1 MG/DL (0.55-1.30) Estimat Glomerular Filtration Rate > 60 mL/min (>60) Glucose Level 185 MG/DL (74-106) H Calcium Level 8.5 MG/DL (8.5-10.1) Phosphorus Level 3.4 MG/DL (2.5-4.9) Magnesium Level 1.9 MG/DL (1.8-2.4) Total Bilirubin 1.8 MG/DL (0.2-1.0) H Direct Bilirubin 0.6 MG/DL (0.0-0.3) H Aspartate Amino Transf (AST/SGOT) 20 U/L (15-37) Alanine Aminotransferase (ALT/SGPT) 25 U/L (12-78) Alkaline Phosphatase 185 U/L (46-116) H Total Protein 6.9 G/DL (6.4-8.2) Albumin 2.5 G/DL (3.4-5.0) L Globulin 4.4 g/dL Albumin/Globulin Ratio 0.6 (1.0-2.7) L Objective HEENT: Atraumatic and normocephalic. Anicteric. Pupils are equal, round, and reactive to light and accommodation. Extraocular muscles intact. NECK: JVP elevated about 25 cm. No carotid bruits. Carotid upstrokes 2+ bilaterally. CARDIOVASCULAR: Normal S1, S2. Irregularly irregular rhythm. Cannot appreciate murmur, gallop, or rub. LUNGS: Diminished deep inspiration, secondary to chest wall pain, but appears to be clear. ABDOMEN: Soft, nontender, and nondistended. No hepatosplenomegaly. Positive bowel sounds. EXTREMITIES: There is 2+ to 3+ bilateral lower extremity edema with ulcerations, discrete lesions over both shins, as well as presence of foot ulcer on the left side. Sudarshan Stuart MD Feb 20, 2018 23:00
--- NOTE | 2018-02-21 12:37 | Discharge Summary ---
Discharge Summary Hospital Course Date of Admission Feb 16, 2018 at 22:53 Date of Discharge Feb 20, 2018 at 12:45 Admitting Diagnosis atrial fibrillation with RVR, leg cellulititis HPI Dustin Cornejo is a 57 year old male who was admitted on Feb 16, 2018 at 22:53 for Atrial Fibrillation W/Rvr,Leg Cellulititis Consultations dr Solis -motor driver dr Lujan - accounts clerk Procedures IMAGING CXR Cardiomegaly with bibasilar subsegmental atelectasis. ECHOCARDIOGRAM EXAM: Two-dimensional and M-mode echocardiogram with Doppler and color Doppler. INDICATION Congestive Heart Failure M-Mode DIMENSIONS IVSd 1.9 (0.7-1.1cm) Left Atrium (MM) 5.2 (1.6-4.0cm) LVDd 6.5 (3.5-5.6cm) Aortic Root 4.1 (2.0-3.7cm) PWd 1.3 (0.7-1.1cm) Aortic Cusp Exc. 2.0 (1.5-2.0cm) IVSs 1.7 cm LVDs 5.6 (2.5-4.0cm) PWs 1.9 cm Global left ventricular hypokinesis. Mild left atrial enlargement . Left ventricular ejection fraction estimated to be 25-30%. No evidence of left ventricular hypertrophy . No evidence of pericardial effusion. Mild bi-atrial enlargement . Right ventricular chamber sizes is within normal limits. Thickened mitral valve leaflets with normal excursion. Mitral annulus and aortic root calcification. Normal pulmonic valve structure. Normal tricuspid valve structure. IVC dilated at size 2.5 cm without physiologic collapse, suggestive to increase RA pressure . A color flow and spectral Doppler study was performed and revealed: No aortic regurgitation.. Mild to moderate mitral regurgitation. Mild tricuspid regurgitation. Tricuspid systolic velocities suggests peak right ventricular systolic pressure of 24mmHg. No Pulmonic regurgitation present. RIB X RAY No acute fractures. No dislocations. No gross pneumothorax demonstrated. VENOUS DUPLEX BLE No evidence of acute DVT Hospital Course see dr Mason regalado summary Patient declined waiting for SNF to be arranged and opted to be discharged to [facility]. FINAL DIAGNOSES Cellulitis Left foot Left foot ulcer Acute on chronic systolic and diastolic congestive heart failure with ejection fraction 25% Atrial fibrillation with rapid ventricular response -resolved Acute renal failure Peripheral vascular disease Drug abuse/amphetamine, marijuana Thrombocytopenia Anemia Discharge Medications Continued Medications: Aspirin (Aspirin EC) 81 Mg Tablet.dr 81 MG ORAL DAILY, #30 TAB (This prescription has been renewed) Atorvastatin Calcium* (Lipitor*) 40 Mg Tablet 40 MG ORAL DAILY for 30 Days, TAB (This prescription has been renewed) Bumetanide* (Bumetanide*) 2 Mg Tablet 2 MG ORAL BID, TAB (This prescription has been renewed) Ibuprofen* (Motrin*) 600 Mg Tablet 400 MG ORAL FOUR TIMES A DAY PRN for Prn Headache/Temp > 101, #30 TAB 0 Refills (This prescription has been renewed) Levofloxacin* (Levaquin*) 500 Mg Tablet 500 MG ORAL DAILY for 5 Days, TAB (This prescription has been renewed) Lisinopril* (Lisinopril*) 10 Mg Tablet 10 MG ORAL DAILY, TAB (This prescription has been renewed) Metformin Hcl* (Metformin Hcl*) 1,000 Mg Tablet 1000 MG ORAL BID, TAB (This prescription has been renewed) Pantoprazole* (Pantoprazole*) 40 Mg Tablet.dr 40 MG ORAL DAILY, TAB (This prescription has been renewed) Pregabalin* (Lyrica*) 75 Mg Capsule 100 MG ORAL THREE TIMES A DAY, CAP (This prescription has been renewed) Discharge Condition Upon Discharge: stable Discharge Disposition Patient was discharged to [facility] (01) Discharge Instructions Discharge Instructions Special Instructions I have been assigned to complete a D/C Summary on this account. I was not involved in the patient management Tamara Paez NP Feb 21, 2018 12:37
--- NOTE | 2018-02-22 23:12 | Diagnostic Imaging Report ---
APPROVED REPORT CPT Code: 96672 Present Symptoms Comments: BILATERAL LEGS PAIN. BILATERAL: Imaging reveals a patent deep venous system bilaterally. There is no evidence of thrombus within the femoral, popliteal or tibial segments. The greater saphenous veins are also within normal limits. Doppler indicates normal spontaneous flow within these segments.
== END 2018-02-20 12:45 | disposition home or self-care (01) | DRG 383 ==
LOC: EDBD 21:52 → EMR 22:12 → 2E 22:53 → EDBEDREQ 23:44 → 4E 02-17 13:57
DX: L03.116 Cellulitis of left lower limb (principal); I50.43 Acute on chronic combined systolic (congestive) and diastolic (congestive) heart failure; N17.9 Acute kidney failure, unspecified; D69.6 Thrombocytopenia, unspecified; E11.65 Type 2 diabetes mellitus with hyperglycemia; E66.01 Morbid (severe) obesity due to excess calories; I36.1 Nonrheumatic tricuspid (valve) insufficiency; I48.91 Unspecified atrial fibrillation; L97.529 Non-pressure chronic ulcer of other part of left foot with unspecified severity; R07.9 Chest pain, unspecified; I73.9 Peripheral vascular disease, unspecified; F15.10 Other stimulant abuse, uncomplicated; F12.10 Cannabis abuse, uncomplicated; E66.9 Obesity, unspecified; I34.0 Nonrheumatic mitral (valve) insufficiency
CPT/HCPCS: 36415; 71045; 76770; 80053; 80061; 80307; 81003; 82248; 82550; 82553; 82607; 82728; 82746; 82962; 83036; 83540; 83550; 83605; 83735; 83880; 84100; 84443; 84484; 84550; 85025; 86140; 87070; 87081; 87181; 87205; 93005; 93306; 93970; 96365; 96367; 96375; 99285; C9399; J1815

== ENCOUNTER 2018-02-28 17:26 | Inpatient (IN) | payer MEDICAID ==
[~2018-02-28] VITALS: Ht 182.9 cm; Wt 114.3 kg
[~2018-02-28 17:26] MED LIST: ASPIRIN-LOW81 MG ORAL; ATORVASTATIN CA40 MG ORAL; BUMETANIDE2 MG ORAL; IBUPROFEN600 MG ORAL; LEVAQUIN500 MG ORAL; LIPITOR40 MG ORAL; LISINOPRIL10 MG ORAL; LYRICA75 M1 ORAL; METFORMIN HCL1000 M1 ORAL; PANTOPRAZOLE SO40 MG ORAL
[2018-02-28 17:30] VITALS: BP 104/69
[2018-02-28] MEDS ORDERED: Vancomycin 1.5gm/D5W 250ml 250 ML IVPB ONE (17:45)
--- NOTE | 2018-02-28 19:03 | Emergency Room Report ---
History of Present Illness General Chief Complaint: Pain Source: Patient Present Illness HPI Patient presents emergency department today complaining of bilateral lower extremity pain. Patient is a diabetic. [facility] Patient states that his right lower extremity has been getting increasingly red with drainage especially worse on the left lower extremity. Patient appears have a chronic ulcer in the left lower chimney. Patient denies any fever chest pain shortness of breath. No other complaints are noted. Symptoms noted to be moderate to severe. No other modifying factors. No other associated signs and symptoms. No other complaints were noted. Allergies: Coded Allergies: No Known Allergies (Unverified , 02/16/18) Patient History Past Medical History: DM, CHF Past Surgical History: none Pertinent Family History: none Social History: Denies: smoking, alcohol use, drug use Reviewed Nursing Documentation: PMH: Agreed; PSxH: Agreed Nursing Documentation-PMH Past Medical History: No History, Except For Hx Cardiac Problems: Yes - HF Hx Diabetes: Yes Hx Cancer: No Hx Gastrointestinal Problems: No Hx Neurological Problems: No Review of Systems All Other Systems: negative except mentioned in HPI Physical Exam Vital Signs Date Time Temp Pulse Resp B/P (MAP) Pulse Ox O2 Delivery O2 Flow Rate FiO2 02/28/18 17:19 97.5 120 18 104/69 93 Room Air Sp02 EP Interpretation: reviewed, normal General Appearance: alert, mild distress, lethargic, obese Head: atraumatic Eyes: bilateral eye normal inspection ENT: normal ENT inspection, hearing grossly normal, normal voice Neck: normal inspection, full range of motion, supple, no bony tend Respiratory: normal inspection, lungs clear, normal breath sounds, no respiratory distress, no retraction, no wheezing Cardiovascular #1: regular rate, rhythm, no edema Gastrointestinal: normal inspection, normal bowel sounds, non tender, soft, no guarding, no hernia Genitourinary: no CVA tenderness Musculoskeletal: back normal, inflammation - Bilateral lower extremity, redness bilateral lower extremity, left chronic ulcer, swelling Neurologic: normal inspection, alert, responsive, speech normal Psychiatric: normal inspection, judgement/insight normal, mood/affect normal Skin: other - bilateral lower leg erythemia, left lower extremity ulcer Medical Decision Making Diagnostic Impression: Primary Impression: Cellulitis Additional Impression: Diabetes ER Course Patient presents emergency department today with bilateral lower extremity pain and swelling. Differential considerations include cellulitis, abscess, DVT. Patient's exam is consistent with severe cellulitis. Given patient's diabetic with severe cellulitis of bilateral lower extremity felt the patient require admission for IV antibiotics. Patient laboratory workup was negative. Patient was started on vancomycin IV antibiotics. Case was discussed with Dr. Mick Garcia for admission. In the past patient has been admitted to Dr. Cuevas but I discussed this case with Dr. Cuevas states that he is not patient's primary care physician and he does not follow the patient. Therefore patient will be admitted to the panel. Labs Test 02/28/18 19:09 White Blood Count 7.1 K/UL (4.8-10.8) Red Blood Count 5.96 M/UL (4.70-6.10) Hemoglobin 15.4 G/DL (14.2-18.0) Hematocrit 47.6 % (42.0-52.0) Mean Corpuscular Volume 80 FL (80-99) Mean Corpuscular Hemoglobin 25.8 PG (27.0-31.0) Mean Corpuscular Hemoglobin Concent 32.2 G/DL (32.0-36.0) Red Cell Distribution Width 16.7 % (11.6-14.8) Platelet Count 182 K/UL (150-450) Mean Platelet Volume 10.0 FL (6.5-10.1) Neutrophils (%) (Auto) 64.4 % (45.0-75.0) Lymphocytes (%) (Auto) 23.6 % (20.0-45.0) Monocytes (%) (Auto) 5.4 % (1.0-10.0) Eosinophils (%) (Auto) 4.6 % (0.0-3.0) Basophils (%) (Auto) 2.1 % (0.0-2.0) Prothrombin Time 11.2 SEC (9.30-11.50) Prothromb Time International Ratio 1.1 (0.9-1.1) Activated Partial Thromboplast Time 22 SEC (23-33) Sodium Level 138 MMOL/L (136-145) Potassium Level 4.6 MMOL/L (3.5-5.1) Chloride Level 102 MMOL/L (98-107) Carbon Dioxide Level 25 MMOL/L (21-32) Anion Gap 11 mmol/L (5-15) Blood Urea Nitrogen 50 mg/dL (7-18) Creatinine 1.3 MG/DL (0.55-1.30) Estimat Glomerular Filtration Rate 57.3 mL/min (>60) Glucose Level 233 MG/DL (74-106) Calcium Level 8.9 MG/DL (8.5-10.1) Total Bilirubin 2.2 MG/DL (0.2-1.0) Direct Bilirubin 0.5 MG/DL (0.0-0.3) Aspartate Amino Transf (AST/SGOT) 43 U/L (15-37) Alanine Aminotransferase (ALT/SGPT) 33 U/L (12-78) Alkaline Phosphatase 216 U/L (46-116) C-Reactive Protein, Quantitative 5.4 mg/dL (0.00-0.90) Total Protein 8.3 G/DL (6.4-8.2) Albumin 3.0 G/DL (3.4-5.0) Globulin 5.3 g/dL Albumin/Globulin Ratio 0.6 (1.0-2.7) Other X-Ray Diagnostic Results Other X-Ray Diagnostic Results #1: X-Ray ordered: Right tib-fib # of Views/Limited Vs Complete: 3 View Indication: Pain EP Interpretation: Yes Interpretation: no dislocation, no fractures, other - No gas Impression: No acute disease Electronically Signed by: Electronically signed by Brian Tineo MD Other X-Ray Diagnostic Results #2: X-Ray ordered: Left tib-fib # of Views/Limited Vs Complete: 3 View Indication: Pain EP Interpretation: Yes Interpretation: no dislocation, no fractures, other - No gas Impression: No acute disease Electronically Signed by: Electronically signed by Brian Tineo MD Last Vital Signs Date Time Temp Pulse Resp B/P (MAP) Pulse Ox O2 Delivery O2 Flow Rate FiO2 02/28/18 17:19 97.5 120 18 104/69 93 Room Air Status: improved Disposition: ADMITTED INPATIENT Condition: Serious Referrals: NOT CHOSEN PAUL/,REFERRING (PCP) Brian Tineo MD Feb 28, 2018 19:03
[2018-02-28 19:29] VITALS: BP 110/73
[2018-02-28 19:45] LABS: ANION GAP 11 mmol/L (5-15); BLOOD UREA NITROGEN 50 mg/dL (7-18); CALCIUM 8.9 MG/DL (8.5-10.1); CARBON DIOXIDE 25 MMOL/L (21-32); CHLORIDE 102 MMOL/L (98-107); CREATININE 1.3 MG/DL (0.55-1.30); POTASSIUM 4.6 MMOL/L (3.5-5.1); SODIUM 138 MMOL/L (136-145)
[2018-02-28 19:47] LABS: BASOPHILS % (AUTO) 2.1 % (0.0-2.0); EOSINOPHILS % (AUTO) 4.6 % (0.0-3.0); HEMATOCRIT 47.6 % (42.0-52.0); HEMOGLOBIN 15.4 G/DL (14.2-18.0); LYMPHOCYTES % (AUTO) 23.6 % (20.0-45.0); MEAN CORPUSCULAR VOLUME 80 FL (80-99); MONOCYTES % (AUTO) 5.4 % (1.0-10.0); NEUTROPHILS % (AUTO) 64.4 % (45.0-75.0); PLATELET COUNT 182 K/UL (150-450); RED BLOOD COUNT 5.96 M/UL (4.70-6.10); RED CELL DISTRIBUTION WIDTH 16.7 % (11.6-14.8); WHITE BLOOD COUNT 7.1 K/UL (4.8-10.8)
[2018-02-28 19:55] LABS: ALANINE AMINOTRANSFERASE 33 U/L (12-78); ALBUMIN/GLOBULIN RATIO 0.6 (1.0-2.7); ALKALINE PHOSPHATASE 216 U/L (46-116); ASPARTATE AMINO TRANSFERASE 43 U/L (15-37); BILIRUBIN,TOTAL 2.2 MG/DL (0.2-1.0)
[2018-02-28 19:57] LABS: BILIRUBIN,DIRECT 0.5 MG/DL (0.0-0.3); INR 1.1 (0.9-1.1)
[2018-02-28] MEDS ORDERED: DiphenhydrAMINE 50mg/ml Inj IVP ONE (21:15)
[2018-02-28] MEDS ORDERED: LORazepam Inj 2mg/ml 1ml IV ONE (21:15)
[2018-02-28] MEDS ORDERED: Haloperidol 5mg/ml Inj IM ONE (21:15)
[2018-02-28 21:40] VITALS: BP 112/75
[2018-02-28] MEDS ORDERED: Miralax 17gm pkt ORAL PRN (21:45)
[2018-02-28] MEDS ORDERED: Morphine Sulfate 2mg/ml Inj IVP PRN (21:45)
[2018-02-28] MEDS ORDERED: Nitroglycerin Subl 0.4mg tab SL PRN (21:45)
[2018-02-28] MEDS ORDERED: Albuterol/Ipratropium 3ml neb HHN PRN (21:45)
[2018-02-28 22:00] VITALS: BP 141/92
[2018-02-28] MEDS ORDERED: Cefepime HCl 2 GM in D5W 110 ML IV SCH (23:00)
[2018-03-01 00:12] VITALS: BP 111/68
[2018-03-01] MEDS ORDERED: Vancomycin 1 GM in D5W 275 ML IV SCH (00:30)
[2018-03-01] MEDS ORDERED: Metoprolol 5mg/5ml Inj IVP PRN (02:30)
[2018-03-01 04:00] VITALS: BP 124/80
[2018-03-01] MEDS ORDERED: LORazepam Inj 2mg/ml 1ml IV PRN (06:00)
[2018-03-01] MEDS ORDERED: Vancomycin 1250mg/D5W 250ml IVPB SCH (06:00)
[2018-03-01] MEDS ORDERED: Haloperidol 5mg/ml Inj IM PRN (06:00)
[2018-03-01 08:00] VITALS: BP 103/75
--- NOTE | 2018-03-01 08:46 | Diagnostic Imaging Report ---
Indication: Pain Technique: 2 views of the right tibia and fibula Comparison: none Findings: No acute fractures. No dislocations. The joint spaces are preserved. There are numerous phleboliths anteriorly. There are arterial calcifications. Impression: No acute bony trauma This agrees with the preliminary interpretation provided by the emergency room physician
--- NOTE | 2018-03-01 08:47 | Diagnostic Imaging Report ---
Indication: Pain Technique: 2 views tibia and fibula on the left Comparison: None Findings: No acute fractures. No dislocations. Bony alignment is normal. Phleboliths are seen in the anterior soft tissues. There are vascular calcifications. Impression: No acute process This agrees with the preliminary interpretation provided by the emergency room physician
[2018-03-01] MEDS ORDERED: Heparin 5000 units/ml inj SUBQ SCH ×2 (09:00→21:00)
[2018-03-01] MEDS ORDERED: Cefepime HCl 2 GM in D5W 110 ML IV SCH ×2 (09:00→09:30)
[2018-03-01] MEDS ORDERED: Miralax 17gm pkt ORAL PRN (09:30)
[2018-03-01] MEDS ORDERED: DiphenhydrAMINE 50mg/ml Inj IM SCH (09:30)
[2018-03-01] MEDS ORDERED: Nitroglycerin Subl 0.4mg tab SL PRN (09:30)
[2018-03-01] MEDS ORDERED: Haloperidol 5mg/ml Inj IM SCH (09:31)
[2018-03-01] MEDS ORDERED: LORazepam Inj 2mg/ml 1ml IM SCH (09:32)
[2018-03-01] MEDS ORDERED: Albuterol/Ipratropium 3ml neb HHN PRN (09:45)
[2018-03-01] MEDS ORDERED: Morphine Sulfate 2mg/ml Inj IVP PRN (09:45)
[2018-03-01 12:00] VITALS: BP 123/83
--- NOTE | 2018-03-01 12:10 | Consultation ---
History of Present Illness General Date patient seen: Mar 01, 2018 Chief Complaint: Pain Present Illness HPI 57 year old male with hx of DM, Hypertension, presented to emergency department today complaining of bilateral lower extremity pain. Patient states that his right lower extremity has been getting increasingly red with drainage especially worse on the left lower extremity. Patient denies any fever chest pain shortness of breath. No other complaints are noted. Symptoms noted to be moderate to severe. No other modifying factors. Pt was initially transferred to medical floor, then he became tachycardic and developed afib and was transferred to telemetry. Allergies: Coded Allergies: No Known Allergies (Unverified , 02/16/18) Medication History Scheduled Aspirin (Aspirin EC), 81 MG ORAL DAILY, (Reported) Atorvastatin Calcium* (Atorvastatin Calcium*), 40 MG ORAL BEDTIME, (Reported) Atorvastatin Calcium* (Lipitor*), 40 MG ORAL DAILY, (Reported) Bumetanide* (Bumetanide*), 2 MG ORAL BID, (Reported) Levofloxacin* (Levaquin*), 500 MG ORAL DAILY, (Reported) Lisinopril* (Lisinopril*), 10 MG ORAL DAILY, (Reported) Metformin Hcl* (Metformin Hcl*), 1,000 MG ORAL BID, (Reported) Pantoprazole* (Pantoprazole*), 40 MG ORAL DAILY, (Reported) Pregabalin* (Lyrica*), 100 MG ORAL THREE TIMES A DAY, (Reported) Scheduled PRN Ibuprofen* (Motrin*), 400 MG ORAL FOUR TIMES A DAY PRN for Prn Headache/Temp > 101, (Reported) Patient History Healthcare decision maker Resuscitation status Full Code Advanced Directive on File No Past Medical/Surgical History Past Medical/Surgical History: (1) Diastolic CHF, chronic (2) Diabetes Review of Systems All Other Systems: negative except mentioned in HPI Physical Exam General Appearance: WD/WN Lines, tubes and drains: peripheral HEENT: normocephalic, atraumatic Neck: non-tender, normal alignment Respiratory/Chest: chest wall non-tender, lungs clear Breasts: no masses Cardiovascular/Chest: normal peripheral pulses Abdomen: normal bowel sounds, non tender Genitourinary/Rectal: normal genital exam Extremities: normal range of motion Skin Exam: normal pigmentation Last 24 Hour Vital Signs Date Time Temp Pulse Resp B/P (MAP) Pulse Ox O2 Delivery O2 Flow Rate FiO2 03/01/18 08:00 96.3 141 28 103/75 (84) 94 03/01/18 07:01 172 124/80 03/01/18 05:33 119 03/01/18 04:00 96.3 119 20 124/80 (95) 92 03/01/18 00:12 98.7 111 18 111/68 (82) 99 02/28/18 23:20 Room Air 02/28/18 22:00 97.1 141 18 141/92 (108) 90 02/28/18 21:40 97.5 69 18 112/75 98 Room Air 02/28/18 21:40 97.5 69 18 112/75 98 Room Air 02/28/18 19:29 97.5 70 18 110/73 99 Room Air 02/28/18 17:30 97.5 73 18 104/69 93 Room Air 02/28/18 17:19 97.5 120 18 104/69 93 Room Air Intake and Output 02/28/18 03/01/18 18:59 06:59 Intake Total 360 ml Balance 360 ml IV Total 360 ml # Voids 1 Laboratory Tests Test 02/28/18 19:09 White Blood Count 7.1 K/UL (4.8-10.8) Red Blood Count 5.96 M/UL (4.70-6.10) Hemoglobin 15.4 G/DL (14.2-18.0) Hematocrit 47.6 % (42.0-52.0) Mean Corpuscular Volume 80 FL (80-99) Mean Corpuscular Hemoglobin 25.8 PG (27.0-31.0) L Mean Corpuscular Hemoglobin Concent 32.2 G/DL (32.0-36.0) Red Cell Distribution Width 16.7 % (11.6-14.8) H Platelet Count 182 K/UL (150-450) Mean Platelet Volume 10.0 FL (6.5-10.1) Neutrophils (%) (Auto) 64.4 % (45.0-75.0) Lymphocytes (%) (Auto) 23.6 % (20.0-45.0) Monocytes (%) (Auto) 5.4 % (1.0-10.0) Eosinophils (%) (Auto) 4.6 % (0.0-3.0) H Basophils (%) (Auto) 2.1 % (0.0-2.0) H Erythrocyte Sedimentation Rate 14 MM/HR (0-20) Prothrombin Time 11.2 SEC (9.30-11.50) Prothromb Time International Ratio 1.1 (0.9-1.1) Activated Partial Thromboplast Time 22 SEC (23-33) L Sodium Level 138 MMOL/L (136-145) Potassium Level 4.6 MMOL/L (3.5-5.1) Chloride Level 102 MMOL/L (98-107) Carbon Dioxide Level 25 MMOL/L (21-32) Anion Gap 11 mmol/L (5-15) Blood Urea Nitrogen 50 mg/dL (7-18) H Creatinine 1.3 MG/DL (0.55-1.30) Estimat Glomerular Filtration Rate 57.3 mL/min (>60) Glucose Level 233 MG/DL (74-106) H Calcium Level 8.9 MG/DL (8.5-10.1) Total Bilirubin 2.2 MG/DL (0.2-1.0) H Direct Bilirubin 0.5 MG/DL (0.0-0.3) H Aspartate Amino Transf (AST/SGOT) 43 U/L (15-37) H Alanine Aminotransferase (ALT/SGPT) 33 U/L (12-78) Alkaline Phosphatase 216 U/L (46-116) H C-Reactive Protein, Quantitative 5.4 mg/dL (0.00-0.90) H Total Protein 8.3 G/DL (6.4-8.2) H Albumin 3.0 G/DL (3.4-5.0) L Globulin 5.3 g/dL Albumin/Globulin Ratio 0.6 (1.0-2.7) L Urine Opiates Screen Negative (NEGATIVE) Urine Barbiturates Screen Negative (NEGATIVE) Phencyclidine (PCP) Screen Negative (NEGATIVE) Urine Amphetamines Screen Negative (NEGATIVE) Urine Benzodiazepines Screen Negative (NEGATIVE) Urine Cocaine Screen Negative (NEGATIVE) Urine Marijuana (THC) Screen Positive (NEGATIVE) H Height (Feet): 6 Height (Inches): 0.00 Weight (Pounds): 270 Medications Current Medications Medications (Trade) Dose Ordered Sig/Roseline Route PRN Reason Start Time Stop Time Status Last Admin Dose Admin Acetaminophen (Tylenol) 650 mg Q4H PRN ORAL fever 03/01/18 09:29 03/30/18 09:28 Albuterol/ Ipratropium (Albuterol/ Ipratropium) 3 ml Q4H PRN HHN Shortness of Breath 03/01/18 09:45 03/05/18 21:44 Cefepime HCl 2 gm/ Dextrose 110 ml @ 220 mls/hr EVERY 12 HOURS IV 03/01/18 09:30 03/08/18 09:29 Dextrose (Dextrose 50%) 25 ml Q30M PRN IV Hypoglycemia 03/01/18 09:45 03/30/18 21:44 Dextrose (Dextrose 50%) 50 ml Q30M PRN IV Hypoglycemia 03/01/18 09:45 03/30/18 21:44 Haloperidol Decanoate (Haldol) 100 mg ONCE IM 03/01/18 20:00 03/01/18 23:59 Haloperidol Lactate (Haldol) 5 mg Q4H PRN IM Agitation 03/01/18 09:29 03/31/18 09:28 Heparin Sodium (Porcine) (Heparin 5000 units/ml) 5,000 units EVERY 12 HOURS SUBQ 03/01/18 21:00 03/31/18 08:59 Lorazepam (Ativan 2mg/ml 1ml) 1 mg Q4H PRN IV For Anxiety 03/01/18 10:00 03/08/18 05:59 Metoprolol Tartrate (Lopressor) 10 mg Q1H PRN IVP Heart rate >120 per minute 03/01/18 09:30 03/31/18 02:29 Morphine Sulfate (Morphine Sulfate) 2 mg Q4H PRN IVP Moderate Pain (Pain Scale 4-6) 03/01/18 09:45 03/07/18 21:44 Nitroglycerin (Ntg) 0.4 mg Q5M PRN SL Prn Chest Pain 03/01/18 09:30 03/30/18 21:44 Ondansetron HCl (Zofran) 4 mg Q6H PRN IVP Nausea & Vomiting 03/01/18 09:45 03/30/18 21:44 Polyethylene Glycol (Miralax) 17 gm DAILYPRN PRN ORAL Constipation 03/01/18 09:30 03/30/18 09:29 Temazepam (Restoril) 15 mg HSPRN PRN ORAL Insomnia 03/01/18 09:30 03/07/18 09:29 Vancomycin HCl (Vanco rx to dose) 1 ea DAILY PRN MISC rx protocol 03/02/18 09:00 03/30/18 21:59 Vancomycin HCl/ Dextrose 250 ml @ 166.667 mls/hr Q12H IVPB 03/01/18 18:00 03/06/18 05:59 Assessment/Plan Problem List: (1) Cellulitis ICD Codes: L03.90 - Cellulitis, unspecified SNOMED: 023828949 (2) Diastolic CHF, chronic ICD Codes: I50.32 - Chronic diastolic (congestive) heart failure SNOMED: 97465673, 343400770 (3) Diabetes ICD Codes: E11.9 - Type 2 diabetes mellitus without complications SNOMED: 95091103 Assessment/Plan echo cardio evaluation sliding scale iv abx check electrolytes Sunita Sahni MD Mar 01, 2018 12:10
[2018-03-01] MEDS: Metoprolol 5mg/5ml Inj IVP PRN ×4 (12:22→19:05)
--- NOTE | 2018-03-01 13:32 | Consultation ---
History of Present Illness General Date patient seen: Mar 01, 2018 Chief Complaint: Pain Present Illness HPI 57 y/o M with of of DM2, HTN, CHF presented to ED on 02/28 with b/l LE pain, redness and drainage; worse in Left lower extremity. Has a chronic uler in L LE. Denied F/c, CP, SOB upon admission. Patient developed Afib w. RVR and was transferred to telemetry. Allergies: Coded Allergies: No Known Allergies (Unverified , 02/16/18) Medication History Scheduled Aspirin (Aspirin EC), 81 MG ORAL DAILY, (Reported) Atorvastatin Calcium* (Atorvastatin Calcium*), 40 MG ORAL BEDTIME, (Reported) Atorvastatin Calcium* (Lipitor*), 40 MG ORAL DAILY, (Reported) Bumetanide* (Bumetanide*), 2 MG ORAL BID, (Reported) Levofloxacin* (Levaquin*), 500 MG ORAL DAILY, (Reported) Lisinopril* (Lisinopril*), 10 MG ORAL DAILY, (Reported) Metformin Hcl* (Metformin Hcl*), 1,000 MG ORAL BID, (Reported) Pantoprazole* (Pantoprazole*), 40 MG ORAL DAILY, (Reported) Pregabalin* (Lyrica*), 100 MG ORAL THREE TIMES A DAY, (Reported) Scheduled PRN Ibuprofen* (Motrin*), 400 MG ORAL FOUR TIMES A DAY PRN for Prn Headache/Temp > 101, (Reported) Patient History Healthcare decision maker Resuscitation status Full Code Advanced Directive on File No Patient History Narrative Pmhx: as above Shx: Denies: smoking, alcohol use, drug use Fhx: non contributory Review of Systems All Other Systems: negative except mentioned in HPI Physical Exam Physical Exam Narrative General Appearance: WD/WN Lines, tubes and drains: peripheral HEENT: normocephalic, atraumatic Neck: non-tender, normal alignment Respiratory/Chest: chest wall non-tender, lungs clear Breasts: no masses Cardiovascular/Chest: normal peripheral pulses Abdomen: normal bowel sounds, non tender Extremities: B/l leg erythema, swelling, with scratches and some minimal drainage Last 24 Hour Vital Signs Date Time Temp Pulse Resp B/P (MAP) Pulse Ox O2 Delivery O2 Flow Rate FiO2 03/01/18 12:22 136 123/83 03/01/18 12:00 96.9 136 22 123/83 (96) 95 03/01/18 09:00 Room Air 03/01/18 08:00 96.3 141 28 103/75 (84) 94 03/01/18 07:01 172 124/80 03/01/18 05:33 119 03/01/18 04:00 96.3 119 20 124/80 (95) 92 03/01/18 00:12 98.7 111 18 111/68 (82) 99 02/28/18 23:20 Room Air 02/28/18 22:00 97.1 141 18 141/92 (108) 90 02/28/18 21:40 97.5 69 18 112/75 98 Room Air 02/28/18 21:40 97.5 69 18 112/75 98 Room Air 02/28/18 19:29 97.5 70 18 110/73 99 Room Air 02/28/18 17:30 97.5 73 18 104/69 93 Room Air 02/28/18 17:19 97.5 120 18 104/69 93 Room Air Intake and Output 02/28/18 03/01/18 18:59 06:59 Intake Total 360 ml Balance 360 ml IV Total 360 ml # Voids 1 Laboratory Tests Test 02/28/18 19:09 White Blood Count 7.1 K/UL (4.8-10.8) Red Blood Count 5.96 M/UL (4.70-6.10) Hemoglobin 15.4 G/DL (14.2-18.0) Hematocrit 47.6 % (42.0-52.0) Mean Corpuscular Volume 80 FL (80-99) Mean Corpuscular Hemoglobin 25.8 PG (27.0-31.0) L Mean Corpuscular Hemoglobin Concent 32.2 G/DL (32.0-36.0) Red Cell Distribution Width 16.7 % (11.6-14.8) H Platelet Count 182 K/UL (150-450) Mean Platelet Volume 10.0 FL (6.5-10.1) Neutrophils (%) (Auto) 64.4 % (45.0-75.0) Lymphocytes (%) (Auto) 23.6 % (20.0-45.0) Monocytes (%) (Auto) 5.4 % (1.0-10.0) Eosinophils (%) (Auto) 4.6 % (0.0-3.0) H Basophils (%) (Auto) 2.1 % (0.0-2.0) H Erythrocyte Sedimentation Rate 14 MM/HR (0-20) Prothrombin Time 11.2 SEC (9.30-11.50) Prothromb Time International Ratio 1.1 (0.9-1.1) Activated Partial Thromboplast Time 22 SEC (23-33) L Sodium Level 138 MMOL/L (136-145) Potassium Level 4.6 MMOL/L (3.5-5.1) Chloride Level 102 MMOL/L (98-107) Carbon Dioxide Level 25 MMOL/L (21-32) Anion Gap 11 mmol/L (5-15) Blood Urea Nitrogen 50 mg/dL (7-18) H Creatinine 1.3 MG/DL (0.55-1.30) Estimat Glomerular Filtration Rate 57.3 mL/min (>60) Glucose Level 233 MG/DL (74-106) H Calcium Level 8.9 MG/DL (8.5-10.1) Total Bilirubin 2.2 MG/DL (0.2-1.0) H Direct Bilirubin 0.5 MG/DL (0.0-0.3) H Aspartate Amino Transf (AST/SGOT) 43 U/L (15-37) H Alanine Aminotransferase (ALT/SGPT) 33 U/L (12-78) Alkaline Phosphatase 216 U/L (46-116) H C-Reactive Protein, Quantitative 5.4 mg/dL (0.00-0.90) H Total Protein 8.3 G/DL (6.4-8.2) H Albumin 3.0 G/DL (3.4-5.0) L Globulin 5.3 g/dL Albumin/Globulin Ratio 0.6 (1.0-2.7) L Urine Opiates Screen Negative (NEGATIVE) Urine Barbiturates Screen Negative (NEGATIVE) Phencyclidine (PCP) Screen Negative (NEGATIVE) Urine Amphetamines Screen Negative (NEGATIVE) Urine Benzodiazepines Screen Negative (NEGATIVE) Urine Cocaine Screen Negative (NEGATIVE) Urine Marijuana (THC) Screen Positive (NEGATIVE) H Microbiology Date/Time Source Procedure Growth Status 02/28/18 23:00 Leg Left Gram Stain - Final Resulted 02/28/18 23:00 Leg Left Wound Culture Pending Resulted Height (Feet): 6 Height (Inches): 0.00 Weight (Pounds): 270 Medications Current Medications Medications (Trade) Dose Ordered Sig/Roseline Route PRN Reason Start Time Stop Time Status Last Admin Dose Admin Acetaminophen (Tylenol) 650 mg Q4H PRN ORAL fever 03/01/18 09:29 03/30/18 09:28 Albuterol/ Ipratropium (Albuterol/ Ipratropium) 3 ml Q4H PRN HHN Shortness of Breath 03/01/18 09:45 03/05/18 21:44 Cefepime HCl 2 gm/ Dextrose 110 ml @ 220 mls/hr EVERY 12 HOURS IV 03/01/18 09:30 03/08/18 09:29 Dextrose (Dextrose 50%) 25 ml Q30M PRN IV Hypoglycemia 03/01/18 09:45 03/30/18 21:44 Dextrose (Dextrose 50%) 50 ml Q30M PRN IV Hypoglycemia 03/01/18 09:45 03/30/18 21:44 Haloperidol Decanoate (Haldol) 100 mg ONCE IM 03/01/18 20:00 03/01/18 23:59 Haloperidol Lactate (Haldol) 5 mg Q4H PRN IM Agitation 03/01/18 09:29 03/31/18 09:28 Heparin Sodium (Porcine) (Heparin 5000 units/ml) 5,000 units EVERY 12 HOURS SUBQ 03/01/18 21:00 03/31/18 08:59 Insulin Aspart (NovoLOG) BEFORE MEALS AND HS SUBQ 03/01/18 16:30 03/31/18 16:29 Lorazepam (Ativan 2mg/ml 1ml) 1 mg Q4H PRN IV For Anxiety 03/01/18 10:00 03/08/18 05:59 Metoprolol Tartrate (Lopressor) 10 mg Q1H PRN IVP Heart rate >120 per minute 03/01/18 09:30 03/31/18 02:29 03/01/18 12:22 Morphine Sulfate (Morphine Sulfate) 2 mg Q4H PRN IVP Moderate Pain (Pain Scale 4-6) 03/01/18 09:45 03/07/18 21:44 Nitroglycerin (Ntg) 0.4 mg Q5M PRN SL Prn Chest Pain 03/01/18 09:30 12/28/18 21:44 Ondansetron HCl (Zofran) 4 mg Q6H PRN IVP Nausea & Vomiting 03/01/18 09:45 03/30/18 21:44 Polyethylene Glycol (Miralax) 17 gm DAILYPRN PRN ORAL Constipation 03/01/18 09:30 03/30/18 09:29 Temazepam (Restoril) 15 mg HSPRN PRN ORAL Insomnia 03/01/18 09:30 03/07/18 09:29 Vancomycin HCl (Vanco rx to dose) 1 ea DAILY PRN MISC rx protocol 03/02/18 09:00 03/30/18 21:59 Vancomycin HCl/ Dextrose 250 ml @ 166.667 mls/hr Q12H IVPB 03/01/18 18:00 03/06/18 05:59 Assessment/Plan Assessment/Plan Abx: IV Vancomycin 02/28- CEfepime 02/28- Assessment: B/l LE cellulitis- legs with scratches- -L foot tibia/fibula xray: No acute process -R foot tibia/fibula xray: No acute bony trauma Afebrile No leukocytosis DM2 HTN CHF Plan: -COntinue IV Vancomycin #2 and switch Cefepime #2 to Ancef for cellulitis -f/u cx -Monitor CBC/CMP, temperatures wound care Thank you for this consultation. Will continue to follow along with you. Discussed with Susan Mayer M.D. Mar 01, 2018 13:32
[2018-03-01] MEDS ORDERED: Haloperidol Decanoate 50mg Inj IM SCH ×3 (14:00→20:00)
[2018-03-01] MEDS: Haloperidol 5mg/ml Inj IM PRN (14:16)
[2018-03-01] MEDS: LORazepam Inj 2mg/ml 1ml IV PRN (14:17)
[2018-03-01 16:00] VITALS: BP 118/50
--- NOTE | 2018-03-01 16:55 | Diagnostic Imaging Report ---
Indication: Shortness of breath Technique: One view of the chest Comparison: 02/16/2018 Findings: There is mild interstitial congestion. The heart is enlarged. There is slight blunting of the right costophrenic sulcus, may indicate a small amount of pleural fluid. Congestion appears slightly increased from the prior exam. Impression: Mild interstitial congestion, slightly increased from prior study of 02/16/2018 Suspect small right pleural effusion
[2018-03-01] MEDS ORDERED: Tubing IV Secondary IV ONE (17:02)
--- NOTE | 2018-03-01 17:28 | Consultation ---
History of Present Illness General Date patient seen: Mar 01, 2018 Chief Complaint: Pain Reason for Consultation: abnormal LFT's / LE Wounds / Cellulitis Present Illness HPI 57 year old male with pmx of DM2, HTN, CHF presented to ED on 02/28 with bilateral LE pain, redness and drainage; worse in Left lower extremity. Has a chronic uler in L LE. Patient is a poor historian and somewhat combative at times. Poor hygiene. States has been having worsening edema and pain in both legs but left worse than right. cannot recall why legs have so many wounds on them and denies trauma. surgery called to evaluate. also noted to have abnormal lfts on admission. no complaints of abdominal pain. no n/v/f/c. Allergies: Coded Allergies: No Known Allergies (Unverified , 02/16/18) Medication History Scheduled Aspirin (Aspirin EC), 81 MG ORAL DAILY, (Reported) Atorvastatin Calcium* (Atorvastatin Calcium*), 40 MG ORAL BEDTIME, (Reported) Atorvastatin Calcium* (Lipitor*), 40 MG ORAL DAILY, (Reported) Bumetanide* (Bumetanide*), 2 MG ORAL BID, (Reported) Levofloxacin* (Levaquin*), 500 MG ORAL DAILY, (Reported) Lisinopril* (Lisinopril*), 10 MG ORAL DAILY, (Reported) Metformin Hcl* (Metformin Hcl*), 1,000 MG ORAL BID, (Reported) Pantoprazole* (Pantoprazole*), 40 MG ORAL DAILY, (Reported) Pregabalin* (Lyrica*), 100 MG ORAL THREE TIMES A DAY, (Reported) Scheduled PRN Ibuprofen* (Motrin*), 400 MG ORAL FOUR TIMES A DAY PRN for Prn Headache/Temp > 101, (Reported) Patient History Limited by: medical condition History Provided By: Patient, Medical Record, PMD Healthcare decision maker Resuscitation status Full Code Advanced Directive on File No Past Medical/Surgical History Past Medical/Surgical History: (1) A-fib (2) Chest pain (3) Hyperglycemia (4) Drug abuse (5) Acute renal failure (6) Diastolic CHF, chronic (7) Diabetes (8) Cellulitis Review of Systems All Other Systems: negative except mentioned in HPI Physical Exam General Appearance: no apparent distress, alert Lines, tubes and drains: peripheral HEENT: atraumatic, anicteric, mucous membranes moist Neck: normal inspection Respiratory/Chest: normal breath sounds, no respiratory distress, no accessory muscle use Cardiovascular/Chest: normal rate, regular rhythm Abdomen: soft, no organomegaly, no mass Extremities: other Skin Exam: other Neurologic: alert, responsive Last 24 Hour Vital Signs Date Time Temp Pulse Resp B/P (MAP) Pulse Ox O2 Delivery O2 Flow Rate FiO2 03/01/18 15:14 140 123/83 03/01/18 12:22 136 123/83 03/01/18 12:00 96.9 136 22 123/83 (96) 95 03/01/18 09:00 Room Air 03/01/18 08:00 96.3 141 28 103/75 (84) 94 03/01/18 07:01 172 124/80 03/01/18 05:33 119 03/01/18 04:00 96.3 119 20 124/80 (95) 92 03/01/18 00:12 98.7 111 18 111/68 (82) 99 02/28/18 23:20 Room Air 02/28/18 22:00 97.1 141 18 141/92 (108) 90 02/28/18 21:40 97.5 69 18 112/75 98 Room Air 02/28/18 21:40 97.5 69 18 112/75 98 Room Air 02/28/18 19:29 97.5 70 18 110/73 99 Room Air 02/28/18 17:30 97.5 73 18 104/69 93 Room Air Intake and Output 02/28/18 03/01/18 19:00 07:00 Intake Total 360 ml Balance 360 ml IV Total 360 ml # Voids 1 Laboratory Tests Test 02/28/18 19:09 White Blood Count 7.1 K/UL (4.8-10.8) Red Blood Count 5.96 M/UL (4.70-6.10) Hemoglobin 15.4 G/DL (14.2-18.0) Hematocrit 47.6 % (42.0-52.0) Mean Corpuscular Volume 80 FL (80-99) Mean Corpuscular Hemoglobin 25.8 PG (27.0-31.0) L Mean Corpuscular Hemoglobin Concent 32.2 G/DL (32.0-36.0) Red Cell Distribution Width 16.7 % (11.6-14.8) H Platelet Count 182 K/UL (150-450) Mean Platelet Volume 10.0 FL (6.5-10.1) Neutrophils (%) (Auto) 64.4 % (45.0-75.0) Lymphocytes (%) (Auto) 23.6 % (20.0-45.0) Monocytes (%) (Auto) 5.4 % (1.0-10.0) Eosinophils (%) (Auto) 4.6 % (0.0-3.0) H Basophils (%) (Auto) 2.1 % (0.0-2.0) H Erythrocyte Sedimentation Rate 14 MM/HR (0-20) Prothrombin Time 11.2 SEC (9.30-11.50) Prothromb Time International Ratio 1.1 (0.9-1.1) Activated Partial Thromboplast Time 22 SEC (23-33) L Sodium Level 138 MMOL/L (136-145) Potassium Level 4.6 MMOL/L (3.5-5.1) Chloride Level 102 MMOL/L (98-107) Carbon Dioxide Level 25 MMOL/L (21-32) Anion Gap 11 mmol/L (5-15) Blood Urea Nitrogen 50 mg/dL (7-18) H Creatinine 1.3 MG/DL (0.55-1.30) Estimat Glomerular Filtration Rate 57.3 mL/min (>60) Glucose Level 233 MG/DL (74-106) H Calcium Level 8.9 MG/DL (8.5-10.1) Total Bilirubin 2.2 MG/DL (0.2-1.0) H Direct Bilirubin 0.5 MG/DL (0.0-0.3) H Aspartate Amino Transf (AST/SGOT) 43 U/L (15-37) H Alanine Aminotransferase (ALT/SGPT) 33 U/L (12-78) Alkaline Phosphatase 216 U/L (46-116) H C-Reactive Protein, Quantitative 5.4 mg/dL (0.00-0.90) H Total Protein 8.3 G/DL (6.4-8.2) H Albumin 3.0 G/DL (3.4-5.0) L Globulin 5.3 g/dL Albumin/Globulin Ratio 0.6 (1.0-2.7) L Urine Opiates Screen Negative (NEGATIVE) Urine Barbiturates Screen Negative (NEGATIVE) Phencyclidine (PCP) Screen Negative (NEGATIVE) Urine Amphetamines Screen Negative (NEGATIVE) Urine Benzodiazepines Screen Negative (NEGATIVE) Urine Cocaine Screen Negative (NEGATIVE) Urine Marijuana (THC) Screen Positive (NEGATIVE) H Microbiology Date/Time Source Procedure Growth Status 02/28/18 23:00 Leg Left Gram Stain - Final Resulted 02/28/18 23:00 Leg Left Wound Culture Pending Resulted Height (Feet): 6 Height (Inches): 0.00 Weight (Pounds): 270 Medications Current Medications Medications (Trade) Dose Ordered Sig/Roseline Route PRN Reason Start Time Stop Time Status Last Admin Dose Admin Acetaminophen (Tylenol) 650 mg Q4H PRN ORAL fever 03/01/18 09:29 03/30/18 09:28 Albuterol/ Ipratropium (Albuterol/ Ipratropium) 3 ml Q4H PRN HHN Shortness of Breath 03/01/18 09:45 03/05/18 21:44 Cefepime HCl 2 gm/ Dextrose 110 ml @ 220 mls/hr EVERY 12 HOURS IV 03/01/18 09:30 03/08/18 09:29 03/01/18 13:39 Dextrose (Dextrose 50%) 25 ml Q30M PRN IV Hypoglycemia 03/01/18 09:45 03/30/18 21:44 Dextrose (Dextrose 50%) 50 ml Q30M PRN IV Hypoglycemia 03/01/18 09:45 03/30/18 21:44 Haloperidol Decanoate (Haldol) 100 mg ONCE IM 03/01/18 14:00 03/01/18 23:59 Haloperidol Lactate (Haldol) 5 mg Q4H PRN IM Agitation 03/01/18 09:29 03/31/18 09:28 03/01/18 14:16 Heparin Sodium (Porcine) (Heparin 5000 units/ml) 5,000 units EVERY 12 HOURS SUBQ 03/01/18 21:00 03/31/18 08:59 Insulin Aspart (NovoLOG) BEFORE MEALS AND HS SUBQ 03/01/18 16:30 03/31/18 16:29 Lorazepam (Ativan 2mg/ml 1ml) 1 mg Q4H PRN IV For Anxiety 03/01/18 10:00 03/08/18 05:59 03/01/18 14:17 Metoprolol Tartrate (Lopressor) 10 mg Q1H PRN IVP Heart rate >120 per minute 03/01/18 09:30 03/31/18 02:29 03/01/18 15:14 Morphine Sulfate (Morphine Sulfate) 2 mg Q4H PRN IVP Moderate Pain (Pain Scale 4-6) 03/01/18 09:45 03/07/18 21:44 Nitroglycerin (Ntg) 0.4 mg Q5M PRN SL Prn Chest Pain 03/01/18 09:30 03/30/18 21:44 Ondansetron HCl (Zofran) 4 mg Q6H PRN IVP Nausea & Vomiting 03/01/18 09:45 03/30/18 21:44 Polyethylene Glycol (Miralax) 17 gm DAILYPRN PRN ORAL Constipation 03/01/18 09:30 03/30/18 09:29 Temazepam (Restoril) 15 mg HSPRN PRN ORAL Insomnia 03/01/18 09:30 03/07/18 09:29 Vancomycin HCl (Vanco rx to dose) 1 ea DAILY PRN MISC rx protocol 03/02/18 09:00 03/30/18 21:59 Vancomycin HCl/ Dextrose 250 ml @ 166.667 mls/hr Q12H IVPB 03/01/18 18:00 03/06/18 05:59 Assessment/Plan Problem List: (1) Abnormal LFTs Assessment & Plan: will obtain hepatitis panel will obtain US abdomen trend labs ICD Codes: R94.5 - Abnormal results of liver function studies SNOMED: [id number] (2) Cellulitis Assessment & Plan: chronic bilateral lower extremity wounds / ulcers acute on chronic cellulitis no abscess noted serous drainage multiple wounds that seem traumatic like cuts some small ulcers see wound photos for details -IV Abx as per ID -Keep legs elevated -apply skin protectant, hydrogel, non adherent dressings, and wrap -okay to ambulate. -venous and arterial studies ordered ICD Codes: L03.90 - Cellulitis, unspecified SNOMED: [id number] Garth Cornelius Mar 01, 2018 17:28
[2018-03-01] MEDS: NovoLOG Insulin Flexpen SUBQ SCH ×2 (17:32→20:55)
[2018-03-01] MEDS ORDERED: Digoxin 0.5mg/2ml Inj IVP SCH (18:00)
[2018-03-01] MEDS ORDERED: Vancomycin 1250mg/D5W 250ml 250 ML IVPB SCH (18:00)
[2018-03-01] MEDS: Eliquis 2.5mg tablet ORAL SCH (18:27)
[2018-03-01 20:00] VITALS: BP 139/84
[2018-03-01] MEDS: Carvedilol 6.25mg Tab ORAL SCH (20:54)
--- NOTE | 2018-03-01 21:30 | History and Physical Report ---
DATE OF ADMISSION: 02/28/2018 TIME SEEN: On 03/01/2018, at approximate time of 3 p.m. CONSULTANTS: 1. Sunita Sahni M.D. 2. Eddi Styles M.D. 3. Michael Dorsey M.D. CHIEF COMPLAINT: Bilateral lower extremity cellulitis, left greater than right. BRIEF HISTORY: The patient is a 57-year-old male from [facility] presents to [facility] last night with a history of worsening of the lower extremity cellulitis, diagnosed as above, admitted to telemetry for further care. The patient was very combative, currently is sedated after given medication. PAST MEDICAL HISTORY: Atrial fibrillation, lower extremity cellulitis, drug abuse, acute renal failure, CHF, and diabetes. PAST SURGICAL HISTORY: Unknown. ALLERGIES: Denies. MEDICATIONS: Include vancomycin, heparin, insulin, Haldol, lorazepam, morphine, cefepime, nitroglycerin, and temazepam. SOCIAL HISTORY: Unable to obtain secondary to the patient's condition. REVIEW OF SYSTEMS: Unavailable. PHYSICAL EXAMINATION: GENERAL: Lethargic in bed, not responding to questions VITAL SIGNS: Temperature is 96, pulse 136, respirations 22, and blood pressure 123/83. CARDIOVASCULAR: No murmur. LUNGS: Distant and clear. ABDOMEN: Positive bowel sounds. Soft, nontender, and nondistended. EXTREMITIES: No cyanosis or clubbing. 1+ edema. Left lee area red with multiple dressings in place. Right leg slightly red too as well. LABORATORY DATA: Show CBC is normal. BMP show BUN 50, otherwise glucose 233. Otherwise, albumin 3.0. INR is 1.1. PTT is 22. Urine toxicology is positive for marijuana. ASSESSMENT: 1. Bilateral lower extremity cellulitis. 2. Atrial fibrillation. 3. Acute renal failure. 4. Congestive heart failure. 5. Diabetes. 6. Malnutrition. PLAN: 1. Wound care. 2. Antibiotic per Infectious Disease. 3. Blood pressure and blood sugar control. 4. Dietary followup. 5. Psychiatric treatment. 6. OT, PT, and dietary evaluation. 7. CBC and BMP in the morning. 8. We will continue to follow the patient medically. Mick Garcia D.O. DR: DEN JOB#: [id number] CC:
--- NOTE | 2018-03-01 23:04 | Cardiology Progress Note ---
Assessment/Plan Assessment/Plan The patient is seen and examined, full consult note will be dictated shortly. Objective Last 24 Hour Vital Signs Date Time Temp Pulse Resp B/P (MAP) Pulse Ox O2 Delivery O2 Flow Rate FiO2 03/01/18 21:53 135 28 Room Air 2.0 28 03/01/18 21:00 Room Air 03/01/18 20:54 141 139/84 03/01/18 20:00 98.0 141 30 139/84 (102) 95 03/01/18 19:05 146 118/50 03/01/18 18:28 142 03/01/18 17:29 170 118/50 03/01/18 16:00 97.0 140 28 118/50 (72) 93 03/01/18 16:00 142 03/01/18 15:14 140 123/83 03/01/18 12:22 136 123/83 03/01/18 12:00 123 03/01/18 12:00 96.9 136 22 123/83 (96) 95 03/01/18 09:00 Room Air 03/01/18 08:00 135 03/01/18 08:00 96.3 141 28 103/75 (84) 94 03/01/18 07:01 172 124/80 03/01/18 05:33 119 03/01/18 04:00 96.3 119 20 124/80 (95) 92 03/01/18 00:12 98.7 111 18 111/68 (82) 99 02/28/18 23:20 Room Air Intake and Output 02/28/18 03/01/18 19:00 07:00 Intake Total 360 ml Balance 360 ml IV Total 360 ml # Voids 1 Laboratory Tests Test 03/01/18 19:31 Arterial Blood pH 7.539 (7.350-7.450) Arterial Blood Partial Pressure CO2 23.5 mmHg (35.0-45.0) *L Arterial Blood Partial Pressure O2 83.0 mmHg (75.0-100.0) Arterial Blood HCO3 19.6 mmol/L (22.0-26.0) L Arterial Blood Oxygen Saturation 96.4 % (95-100) Arterial Blood Base Excess -1.0 (-2-2) Janes Test Positive Microbiology Date/Time Source Procedure Growth Status 02/28/18 23:00 Leg Left Gram Stain - Final Resulted 02/28/18 23:00 Leg Left Wound Culture Pending Resulted Sudarshan Stuart MD Mar 01, 2018 23:04
[2018-03-02] VITALS (28 sets, daily range): BP systolic 97–139; BP diastolic 59–114
[2018-03-02] MEDS: ceFAZolin sod 1 GM in D5W 55 ML IVPB SCH ×3 (01:30→17:22)
--- NOTE | 2018-03-02 03:30 | Consultation ---
DATE OF CONSULTATION: 03/01/2018 NOTE: POOR AUDIO PSYCHOTHERAPY CONSULTATION PROGRESS NOTE CONSULTING PHYSICIAN: Esther Bagley PsyD. TREATING ATTENDING PHYSICIAN: Mick Garcia D.O. CHIEF COMPLAINT: The patient is a 57-year-old male patient who was brought into the hospital from [facility]. This patient has been very agitated, combative, threatening harm towards staff, aggravated, and for these reasons, poor impulse control, agitation, irritability, and , he was referred for psychotherapeutic services. This clinician assessed this patient. The patient is very confused and disorganized. Affect is irritable. screaming and yelling, unable to , unable to provide any viable illogical information at the time of his neurological . PAST MEDICAL HISTORY: Includes history of diabetes and CHF. ALLERGIES: The patient has no known drug allergies. SUBSTANCE ABUSE HISTORY: There is no history of alcohol use or illicit substance use. PSYCHIATRIC HISTORY: . SOCIAL HISTORY: The patient is a 57-year-old male patient from [facility]. Financially sustained through [employer]. MENTAL STATUS EXAMINATION: The patient is alert and oriented to person and place. Mood is . Affect is . Thought content delusional. He has poor attention and concentration. Poor insight, judgement and impulse control. the patient is confused, combative, anxious, agitated, and irritable. DIAGNOSES: 1. Schizoaffective disorder, bipolar type. 2. Diabetes, hypertension. 3. Psychosocial stressors, moderate. This clinician assessed this patient. Provide the patient with reality orientation, . Provided the patient with behavioral therapy. attempting to work on . Continue with behavioral management. This clinician has reviewed the patient's chart and discussed treatment with the treatment team. Esther Bagley PsyD. DR: PAIGE JOB#: [id number] CC:
[2018-03-02 05:49] LABS: BASOPHILS % (AUTO) 1.5 % (0.0-2.0); EOSINOPHILS % (AUTO) 0.3 % (0.0-3.0); HEMATOCRIT 43.6 % (42.0-52.0); HEMOGLOBIN 14.2 G/DL (14.2-18.0); LYMPHOCYTES % (AUTO) 23.5 % (20.0-45.0); MEAN CORPUSCULAR VOLUME 80 FL (80-99); MONOCYTES % (AUTO) 6.7 % (1.0-10.0); NEUTROPHILS % (AUTO) 68.1 % (45.0-75.0); PLATELET COUNT 154 K/UL (150-450); RED BLOOD COUNT 5.45 M/UL (4.70-6.10); WHITE BLOOD COUNT 8.1 K/UL (4.8-10.8)
--- NOTE | 2018-03-02 06:00 | Consultation ---
DATE OF CONSULTATION: 03/01/2018 CARDIOLOGY CONSULTATION CONSULTING PHYSICIAN: Sudarshan Stuart M.D. REFERRING PHYSICIAN: Mick Garcia D.O. REASON FOR CONSULTATION: Management of tachycardia. HISTORY OF PRESENT ILLNESS: The patient is a very unfortunate 57-year-old gentleman, who is known to me from his recent admission to this facility about 3 weeks ago, who presents again to the hospital with complaints of bilateral lower extremity pain with increasing redness and drainage, worse in the left lower extremity and the right with associated chronic ulceration of the lower extremity. At the time of arrival to the hospital, the patient's 12-lead electrocardiogram was significant for atrial fibrillation and rapid ventricular response. Therefore, Cardiology consultation was made at request of Dr. Garcia for evaluation and management of this condition. Of note, upon arrival to the hospital, the patient did not have any chest pain, shortness of breath, or palpitations. His cardiac history is significant for chronic systolic and diastolic heart failure with left ventricular ejection fraction approximately 25% as well as atrial fibrillation, for which he was placed on carvedilol, digoxin, and Eliquis on a previous admission. He also has a history of crystal methamphetamine abuse, diabetes mellitus, and hypertension. PAST MEDICAL HISTORY: 1. Cardiomyopathy with LVEF, approximately 25%. 2. Diabetes mellitus. 3. Hypertension. 4. Drug abuse. 5. Bilateral lower extremity edema with associated lower extremity cellulitis. ALLERGIES: No known drug allergies. FAMILY HISTORY: No premature coronary artery disease or arrhythmogenic in the first-degree relatives. REVIEW OF SYSTEMS: A 12-system review was done essentially negative except what is mentioned in the history of present illness. SOCIAL HISTORY: No tobacco or alcohol, but uses methamphetamine often as well as marijuana. The patient is a resident of a alf. MEDICATIONS: List of medications at the time of arrival to the hospital: 1. Aspirin 81 mg p.o. daily. 2. Atorvastatin 40 mg p.o. nightly. 3. Bumetanide 2 mg p.o. twice daily. 4. Morphine 400 mg 4 times a day for the headache and temperature above 101 degrees. 5. Levaquin 500 mg daily for 5 days. 6. Lisinopril 10 mg p.o. daily. 7. Metformin 1000 mg p.o. twice daily. 8. Pantoprazole 40 mg p.o. daily. 9. Lyrica 100 mg p.o. two times a day. PHYSICAL EXAMINATION: VITAL SIGNS: Blood pressure 104/69, heart rate of 120, respirations of 18, O2 saturation 93% on room air, and temperature 97.5 degrees Fahrenheit. GENERAL: The patient is a very unfortunate 57-year-old gentleman, in no apparent respiratory distress, somewhat lethargic, and obese. HEENT: Atraumatic and normocephalic. Anicteric. Pupils are equal, round, and reactive to light and accommodation. Extraocular muscles intact. NECK: JVP is less than 5 cm. No carotid bruit. Carotid upstroke is 2+ bilaterally. LUNGS: Clear to auscultation bilaterally. CARDIOVASCULAR: Normal S1 and S2. Irregularly irregular rhythm. No murmurs, gallops, or rubs. ABDOMEN: Soft, nontender, and nondistended. No hepatosplenomegaly. Positive bowel sounds. EXTREMITIES: There is bilateral lower extremity edema with redness. There is chronic ulceration over the left lower extremity as well as tenderness. LABORATORY FINDINGS AND IMAGING DATA: WBC was 7.1, hemoglobin of 15.4, hematocrit of 47.6, and platelet count is 182,000. Sodium was 138, potassium was 4.6, chloride 102, bicarbonate 25, BUN of 50, and creatinine 1.3. Glucose is 233. Calcium is 8.9. Urine tox screen showed positive for marijuana. INR is 1.1. Chest x-ray showed mild interstitial edema, increased from prior study 02/16/2018. In addition to that, presence of a small right pleural effusion. There is cardiomegaly. ASSESSMENT AND PLAN: The patient is a very unfortunate 57-year-old gentleman, was seen in Cardiology consultation. 1. Most likely, permanent atrial fibrillation with rapid ventricular response. The patient in previous hospitalization was on both carvedilol and digoxin, which apparent in the patient's medication list. Resume carvedilol and digoxin. The patient also receives metoprolol 10 mg IV periodically for heart rate of 100. We resumed Eliquis. 2. Chronic systolic and diastolic congestive heart failure. The patient requires to be on guideline-directed medical therapy including beta-blockers, aldosterone antagonists, MYESHA inhibitor/ARBs. 3. Polysubstance abuse including amphetamine and THC. 4. Bilateral lower extremity edema and cellulitis. 5. Infectious Disease consultation required for adequate antibiotic treatment. 6. History of diabetes mellitus. 7. History of hypertension. I would like to thank, Dr. Garcia, for the courtesy of this consultation. Sudarshan Stuart M.D. DR: ZBIGNIEW JOB#: [id number] CC:
[2018-03-02 06:16] LABS: PHOSPHORUS 2.8 MG/DL (2.5-4.9)
[2018-03-02 06:22] LABS: ALANINE AMINOTRANSFERASE 150 U/L (12-78); ALBUMIN 2.5 G/DL (3.4-5.0); ALBUMIN/GLOBULIN RATIO 0.6 (1.0-2.7); ALKALINE PHOSPHATASE 251 U/L (46-116); ANION GAP 10 mmol/L (5-15); ASPARTATE AMINO TRANSFERASE 229 U/L (15-37); BLOOD UREA NITROGEN 43 mg/dL (7-18); CALCIUM 8.8 MG/DL (8.5-10.1); CARBON DIOXIDE 25 MMOL/L (21-32); CHLORIDE 110 MMOL/L (98-107); CREATININE 1.4 MG/DL (0.55-1.30); POTASSIUM 4.4 MMOL/L (3.5-5.1); SODIUM 145 MMOL/L (136-145)
[2018-03-02] MEDS: NovoLOG Insulin Flexpen SUBQ SCH ×4 (06:30→23:11)
[2018-03-02 07:55] LABS: BILIRUBIN,DIRECT 1.5 MG/DL (0.0-0.3)
[2018-03-02] MEDS ORDERED: Vancomycin 1750mg/D5W 300ml IVPB SCH ×2 (08:00)
[2018-03-02] MEDS: LORazepam Inj 2mg/ml 1ml IV PRN ×2 (08:06→13:24)
[2018-03-02] MEDS: Haloperidol 5mg/ml Inj IM PRN ×2 (08:22→13:23)
[2018-03-02] MEDS ORDERED: Vancomycin 1.5 GM/D5W 250ML IVPB SCH (09:00)
[2018-03-02] MEDS: Eliquis 2.5mg tablet ORAL SCH ×2 (09:00→18:00)
[2018-03-02] MEDS: Carvedilol 6.25mg Tab ORAL SCH (09:00)
[2018-03-02] MEDS: Metoprolol 5mg/5ml Inj IVP PRN (09:11)
[2018-03-02] MEDS ORDERED: Digoxin 0.5mg/2ml Inj IVP SCH ×2 (09:15)
--- NOTE | 2018-03-02 11:09 | Pulmonolgy Critical Care Note ---
Critical Care - Asmt/Plan Problems: (1) Cellulitis (2) Acute renal failure (3) Diastolic CHF, chronic (4) Diabetes (5) Hyperglycemia (6) A-fib (7) Abnormal LFTs (8) Rapid atrial fibrillation Respiratory: monitor respiratory rate, adjust FIO2 Cardiac: continue to monitor HR/BP Renal: F/U I&O, keep IV fluid, check electrolytes Infectious Disease: check cultures Gastrointestinal: hold feedings Endocrine: monitor blood sugar Hematologic: transfuse if hgb<8.5 Neurologic: PRN Ativan, keep patient comfortable Prophylaxis: Protonix Disposition: keep in ICU Notes Reviewed: cardio, renal Discussed with: nurses, consultants, nurse case 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 wound - Objective Last 24 Hour Vital Signs Date Time Temp Pulse Resp B/P (MAP) Pulse Ox O2 Delivery O2 Flow Rate FiO2 03/02/18 10:50 97.5 156 30 125/88 (100) 99 03/02/18 09:30 170 03/02/18 09:11 180 143/93 03/02/18 09:00 170 143/93 03/02/18 09:00 Room Air 03/02/18 08:15 156 24 Room Air 21 03/02/18 08:00 168 03/02/18 08:00 97.3 172 26 136/93 (107) 99 03/02/18 04:00 97 03/02/18 04:00 97.2 109 18 130/93 (105) 99 03/02/18 00:11 148 03/02/18 00:00 97.7 150 22 135/114 (121) 97 03/02/18 00:00 153 03/01/18 21:53 135 28 Room Air 2.0 28 03/01/18 21:00 Room Air 03/01/18 20:54 141 139/84 03/01/18 20:00 151 03/01/18 20:00 98.0 141 30 139/84 (102) 95 03/01/18 19:05 146 118/50 03/01/18 18:28 142 03/01/18 17:29 170 118/50 03/01/18 16:00 97.0 140 28 118/50 (72) 93 03/01/18 16:00 142 03/01/18 15:14 140 123/83 03/01/18 12:22 136 123/83 03/01/18 12:00 123 03/01/18 12:00 96.9 136 22 123/83 (96) 95 Status: sedated Condition: critical Neck: full ROM Lungs: clear Heart: HR/BP stable Abdomen: non-tender Extremities: no C/C/E Decubiti: location Micro: Microbiology Date/Time Source Procedure Growth Status 02/28/18 20:38 Blood Blood Culture - Preliminary NO GROWTH AFTER 24 HOURS Resulted 02/28/18 20:25 Blood Blood Culture - Preliminary NO GROWTH AFTER 24 HOURS Resulted 02/28/18 19:09 Blood Blood Culture - Preliminary NO GROWTH AFTER 24 HOURS Resulted 02/28/18 23:00 Leg Left Gram Stain - Final Resulted 02/28/18 23:00 Wound Culture - Preliminary Staphylococcus Aureus Resulted Accucheck: 173 Critical Care - Subjective ROS Limited/Unobtainable: Yes Interval Events: transferred to ICU, because of HR of 150-170 Condition: critical EKG Rhythm: Sinus Rhythm FI02: 21 Sputum Amount: None I&O: Intake and Output 03/01/18 03/02/18 19:00 07:00 Intake Total 440 ml Balance 440 ml Intake Oral 440 ml # Voids 5 1 # Bowel Movements 1 2 Labs: Laboratory Tests Test 03/01/18 19:31 03/02/18 05:36 Arterial Blood pH 7.539 (7.350-7.450) Arterial Blood Partial Pressure CO2 23.5 mmHg (35.0-45.0) *L Arterial Blood Partial Pressure O2 83.0 mmHg (75.0-100.0) Arterial Blood HCO3 19.6 mmol/L (22.0-26.0) L Arterial Blood Oxygen Saturation 96.4 % (95-100) Arterial Blood Base Excess -1.0 (-2-2) Janes Test Positive White Blood Count 8.1 K/UL (4.8-10.8) Red Blood Count 5.45 M/UL (4.70-6.10) Hemoglobin 14.2 G/DL (14.2-18.0) Hematocrit 43.6 % (42.0-52.0) Mean Corpuscular Volume 80 FL (80-99) Mean Corpuscular Hemoglobin 26.1 PG (27.0-31.0) L Mean Corpuscular Hemoglobin Concent 32.7 G/DL (32.0-36.0) Red Cell Distribution Width 17.0 % (11.6-14.8) H Platelet Count 154 K/UL (150-450) Mean Platelet Volume 7.9 FL (6.5-10.1) Neutrophils (%) (Auto) 68.1 % (45.0-75.0) Lymphocytes (%) (Auto) 23.5 % (20.0-45.0) Monocytes (%) (Auto) 6.7 % (1.0-10.0) Eosinophils (%) (Auto) 0.3 % (0.0-3.0) Basophils (%) (Auto) 1.5 % (0.0-2.0) Erythrocyte Sedimentation Rate 7 MM/HR (0-20) Sodium Level 145 MMOL/L (136-145) Potassium Level 4.4 MMOL/L (3.5-5.1) Chloride Level 110 MMOL/L (98-107) H Carbon Dioxide Level 25 MMOL/L (21-32) Anion Gap 10 mmol/L (5-15) Blood Urea Nitrogen 43 mg/dL (7-18) H Creatinine 1.4 MG/DL (0.55-1.30) H Estimat Glomerular Filtration Rate 52.6 mL/min (>60) Glucose Level 96 MG/DL (74-106) # Calcium Level 8.8 MG/DL (8.5-10.1) Phosphorus Level 2.8 MG/DL (2.5-4.9) Magnesium Level 2.0 MG/DL (1.8-2.4) Total Bilirubin 3.0 MG/DL (0.2-1.0) H Direct Bilirubin 1.5 MG/DL (0.0-0.3) H Aspartate Amino Transf (AST/SGOT) 229 U/L (15-37) H Alanine Aminotransferase (ALT/SGPT) 150 U/L (12-78) H Alkaline Phosphatase 251 U/L (46-116) H C-Reactive Protein, Quantitative 5.0 mg/dL (0.00-0.90) H Total Protein 6.9 G/DL (6.4-8.2) Albumin 2.5 G/DL (3.4-5.0) L Globulin 4.4 g/dL Albumin/Globulin Ratio 0.6 (1.0-2.7) L Vancomycin Level Trough 7.0 ug/mL (5.0-12.0) Hepatitis A IgM Antibody Pending Hepatitis B Surface Antigen Pending Hepatitis B Core IgM Antibody Pending Hepatitis C Antibody Pending Sunita Sahni MD Mar 02, 2018 11:09
[2018-03-02] MEDS ORDERED: Heparin 2000 units/Ns 1000ml INJ PRN ×2 (11:30→13:45)
[2018-03-02] MEDS ORDERED: Lidocaine 1% Plain 30 ml INJ PRN ×2 (11:30→13:45)
--- NOTE | 2018-03-02 11:54 | Diagnostic Imaging Report ---
APPROVED REPORT CPT Code: 72951 Present Symptoms Lower Extremity Pain: Bilateral Comments: Left lower leg ulcers BILATERAL: Imaging reveals a patent deep venous system bilaterally. There is no evidence of thrombus within the femoral, popliteal or right tibial segments. Doppler indicates normal spontaneous flow within these segments. The left calf veins not imaged, due to bandages. VENOUS INSUFFICIENCY: Venous insufficiency is noted in the deep veins and greater saphenous veins at the proximal thigh and knee levels. The reflux lasted longer than 0.5 sec.
--- NOTE | 2018-03-02 11:54 | General Progress Note ---
Progress Note Progress Note Pt is admitted to ICU. He doesn't have any capacity to sign any consents. We don't know of any family member or DOPA. Pt will need the usual ICU procedures , like Line placement, transfusions, endoscopies etc. Sunita Sahni MD Mar 02, 2018 11:54
--- NOTE | 2018-03-02 12:55 | General Progress Note ---
Assessment/Plan Problem List: (1) Diabetes ICD Codes: E11.9 - Type 2 diabetes mellitus without complications SNOMED: 99997065 (2) Cellulitis ICD Codes: L03.90 - Cellulitis, unspecified SNOMED: 064963070 (3) Acute renal failure ICD Codes: N17.9 - Acute kidney failure, unspecified SNOMED: 83264808 (4) Rapid atrial fibrillation ICD Codes: I48.91 - Unspecified atrial fibrillation SNOMED: 816388791 Status: unchanged Assessment/Plan o2 pulm tx cardio f/u abx cbc bmp am need picc line Subjective Constitutional: Reports: weakness Allergies: Coded Allergies: No Known Allergies (Unverified , 02/16/18) All Systems: reviewed and negative except above Subjective o2nc sleeping in icu Objective Last 24 Hour Vital Signs Date Time Temp Pulse Resp B/P (MAP) Pulse Ox O2 Delivery O2 Flow Rate FiO2 03/02/18 10:50 97.5 156 30 125/88 (100) 99 03/02/18 09:30 170 03/02/18 09:11 180 143/93 03/02/18 09:00 170 143/93 03/02/18 09:00 Room Air 03/02/18 08:15 156 24 Room Air 21 03/02/18 08:00 168 03/02/18 08:00 97.3 172 26 136/93 (107) 99 03/02/18 04:00 97 03/02/18 04:00 97.2 109 18 130/93 (105) 99 03/02/18 00:11 148 03/02/18 00:00 97.7 150 22 135/114 (121) 97 03/02/18 00:00 153 03/01/18 21:53 135 28 Room Air 2.0 28 03/01/18 21:00 Room Air 03/01/18 20:54 141 139/84 03/01/18 20:00 151 03/01/18 20:00 98.0 141 30 139/84 (102) 95 03/01/18 19:05 146 118/50 03/01/18 18:28 142 03/01/18 17:29 170 118/50 03/01/18 16:00 97.0 140 28 118/50 (72) 93 03/01/18 16:00 142 03/01/18 15:14 140 123/83 Intake and Output 03/01/18 03/02/18 18:59 06:59 Intake Total 440 ml Balance 440 ml Intake Oral 440 ml # Voids 5 1 # Bowel Movements 1 2 Laboratory Tests 03/01/18 19:31: Arterial Blood pH 7.539H, Arterial Blood Partial Pressure CO2 23.5*L, Arterial Blood Partial Pressure O2 83.0, Arterial Blood HCO3 19.6L, Arterial Blood Oxygen Saturation 96.4, Arterial Blood Base Excess -1.0, Janes Test Positive 03/02/18 05:36: White Blood Count 8.1, Red Blood Count 5.45, Hemoglobin 14.2, Hematocrit 43.6, Mean Corpuscular Volume 80, Mean Corpuscular Hemoglobin 26.1L, Mean Corpuscular Hemoglobin Concent 32.7, Red Cell Distribution Width 17.0H, Platelet Count 154, Mean Platelet Volume 7.9, Neutrophils (%) (Auto) 68.1, Lymphocytes (%) (Auto) 23.5, Monocytes (%) (Auto) 6.7, Eosinophils (%) (Auto) 0.3, Basophils (%) (Auto ) 1.5, Erythrocyte Sedimentation Rate 7, Sodium Level 145, Potassium Level 4.4, Chloride Level 110H, Carbon Dioxide Level 25, Anion Gap 10, Blood Urea Nitrogen 43H, Creatinine 1.4H, Estimat Glomerular Filtration Rate 52.6, Glucose Level 96# , Calcium Level 8.8, Phosphorus Level 2.8, Magnesium Level 2.0, Total Bilirubin 3.0H, Direct Bilirubin 1.5H, Aspartate Amino Transf (AST/SGOT) 229H, Alanine Aminotransferase (ALT/SGPT) 150H, Alkaline Phosphatase 251H, C-Reactive Protein , Quantitative 5.0H, Total Protein 6.9, Albumin 2.5L, Globulin 4.4, Albumin/ Globulin Ratio 0.6L, Vancomycin Level Trough 7.0, Hepatitis A IgM Antibody [ Pending], Hepatitis B Surface Antigen [Pending], Hepatitis B Core IgM Antibody [ Pending], Hepatitis C Antibody [Pending] Height (Feet): 6 Height (Inches): 0.00 Weight (Pounds): 270 General Appearance: lethargic EENT: normal ENT inspection Neck: normal alignment Cardiovascular: normal peripheral pulses, normal rate, regular rhythm Respiratory/Chest: chest wall non-tender, lungs clear, normal breath sounds Abdomen: normal bowel sounds, non tender, soft Extremities: normal inspection Edema: no edema noted Arm (L), no edema noted Arm (R), no edema noted Leg (L), no edema noted Leg (R), no edema noted Pedal (L), no edema noted Pedal (R), no edema noted Generalized Neurologic: motor weakness Skin: normal pigmentation, warm/dry Mick Garcia DO Mar 02, 2018 12:55
[2018-03-02] MEDS ORDERED: Nitroglycerin Subl 0.4mg tab SL PRN (13:50)
[2018-03-02] MEDS ORDERED: Miralax 17gm pkt ORAL PRN (14:00)
[2018-03-02] MEDS ORDERED: Albuterol/Ipratropium 3ml neb HHN PRN (14:00)
[2018-03-02] MEDS ORDERED: Metoprolol 5mg/5ml Inj IVP PRN (14:30)
--- NOTE | 2018-03-02 16:29 | Diagnostic Imaging Report ---
Indication: Abnormal liver function tests and abnormal renal function tests Technique: Melara-scale and duplex images of the upper abdomen were obtained. Doppler interrogation of the hepatic and pancreatic vessels Comparison: Findings: Gallbladder demonstrate gallstones. Gallbladder wall is borderline thickened, measuring 3 mm thick. No pericholecystic fluid sonographic Gordon's could not be assessed as patient is sedated Common bile duct measures 5 mm in diameter. No intrahepatic biliary ductal dilatation. Liver demonstrates normal echogenicity. It is somewhat enlarged. No focal abnormality Portal vein and hepatic veins are patent. Pancreas is unremarkable. Spleen is unremarkable. Left kidney measures 10.5 cm in length. Right kidney measures 11.8 cm length. Both kidneys demonstrate normal echogenicity. There is no hydronephrosis. No focal abnormality . Abdominal aorta is partially obscured by bowel gas, visualized portions are non-aneurysmal . There are bilateral pleural effusions incidentally noted Impression: Cholelithiasis Borderline gallbladder wall thickening, could indicate early acute cholecystitis changes. Consider hepatobiliary nuclear scan if there is high clinical suspicion Negative for dilated ducts Incidental finding bilateral pleural effusions Note incomplete visualization of the abdominal aorta
--- NOTE | 2018-03-02 16:37 | Infectious Diseases Prog Note ---
Assessment/Plan Assessment/Plan Assessment: B/l LE cellulitis- legs with scratches (self inflicted) -wound cx S.a ureus (sensi pending) -L foot tibia/fibula xray: No acute process -R foot tibia/fibula xray: No acute bony trauma Afebrile No leukocytosis Afib w/ RVR ElevatedLFTs, increased- r/o hepatobiliary dz DM2 HTN CHF Schizoaffective disorder Plan: -Continue IV Vancomycin #3 and Ancef abx d#3 for cellulitis -03/01 SP Cefepime #2 -f/u cx -Monitor CBC/CMP, temperatures wound care -f/u hep panel, Abd US -HIV ag/ab Thank you for this consultation. Will continue to follow along with you. Discussed with RN. Subjective Allergies: Coded Allergies: No Known Allergies (Unverified , 02/16/18) Subjective transferred to ICU due to Afib with RVR elevated LFts afebrile Objective Vital Signs Last 24 Hour Vital Signs Date Time Temp Pulse Resp B/P (MAP) Pulse Ox O2 Delivery O2 Flow Rate FiO2 03/02/18 15:00 111 21 121/75 (90) 97 03/02/18 14:30 97.6 97 27 139/85 (103) 98 03/02/18 14:00 87 16 116/71 (86) 98 03/02/18 13:30 87 16 113/64 (80) 98 03/02/18 13:00 86 12 109/64 (79) 98 03/02/18 12:30 96 15 97/60 (72) 98 03/02/18 12:00 95 03/02/18 12:00 95 112/59 03/02/18 12:00 96 15 112/59 (76) 98 03/02/18 10:50 97.5 156 30 125/88 (100) 99 03/02/18 09:30 170 03/02/18 09:11 180 143/93 03/02/18 09:00 170 143/93 03/02/18 09:00 Room Air 03/02/18 08:15 156 24 Room Air 21 03/02/18 08:00 168 03/02/18 08:00 97.3 172 26 136/93 (107) 99 03/02/18 04:00 97 03/02/18 04:00 97.2 109 18 130/93 (105) 99 03/02/18 00:11 148 03/02/18 00:00 97.7 150 22 135/114 (121) 97 03/02/18 00:00 153 03/01/18 21:53 135 28 Room Air 2.0 28 03/01/18 21:00 Room Air 03/01/18 20:54 141 139/84 03/01/18 20:00 151 03/01/18 20:00 98.0 141 30 139/84 (102) 95 03/01/18 19:05 146 118/50 03/01/18 18:28 142 03/01/18 17:29 170 118/50 Height (Feet): 6 Height (Inches): 0.00 Weight (Pounds): 270 Objective General Appearance: WD/WN Lines, tubes and drains: peripheral HEENT: normocephalic, atraumatic Neck: non-tender, normal alignment Respiratory/Chest: chest wall non-tender, lungs clear Breasts: no masses Cardiovascular/Chest: normal peripheral pulses Abdomen: normal bowel sounds, non tender Extremities: B/l leg erythema, swelling, with scratches and some minimal drainage Microbiology Date/Time Source Procedure Growth Status 02/28/18 20:38 Blood Blood Culture - Preliminary NO GROWTH AFTER 24 HOURS Resulted 02/28/18 20:25 Blood Blood Culture - Preliminary NO GROWTH AFTER 24 HOURS Resulted 02/28/18 19:09 Blood Blood Culture - Preliminary NO GROWTH AFTER 24 HOURS Resulted 02/28/18 23:00 Leg Left Gram Stain - Final Resulted 02/28/18 23:00 Wound Culture - Preliminary Staphylococcus Aureus Resulted Laboratory Tests Test 03/01/18 19:31 03/02/18 05:36 Arterial Blood pH 7.539 (7.350-7.450) Arterial Blood Partial Pressure CO2 23.5 mmHg (35.0-45.0) *L Arterial Blood Partial Pressure O2 83.0 mmHg (75.0-100.0) Arterial Blood HCO3 19.6 mmol/L (22.0-26.0) L Arterial Blood Oxygen Saturation 96.4 % (95-100) Arterial Blood Base Excess -1.0 (-2-2) Janes Test Positive White Blood Count 8.1 K/UL (4.8-10.8) Red Blood Count 5.45 M/UL (4.70-6.10) Hemoglobin 14.2 G/DL (14.2-18.0) Hematocrit 43.6 % (42.0-52.0) Mean Corpuscular Volume 80 FL (80-99) Mean Corpuscular Hemoglobin 26.1 PG (27.0-31.0) L Mean Corpuscular Hemoglobin Concent 32.7 G/DL (32.0-36.0) Red Cell Distribution Width 17.0 % (11.6-14.8) H Platelet Count 154 K/UL (150-450) Mean Platelet Volume 7.9 FL (6.5-10.1) Neutrophils (%) (Auto) 68.1 % (45.0-75.0) Lymphocytes (%) (Auto) 23.5 % (20.0-45.0) Monocytes (%) (Auto) 6.7 % (1.0-10.0) Eosinophils (%) (Auto) 0.3 % (0.0-3.0) Basophils (%) (Auto) 1.5 % (0.0-2.0) Erythrocyte Sedimentation Rate 7 MM/HR (0-20) Sodium Level 145 MMOL/L (136-145) Potassium Level 4.4 MMOL/L (3.5-5.1) Chloride Level 110 MMOL/L (98-107) H Carbon Dioxide Level 25 MMOL/L (21-32) Anion Gap 10 mmol/L (5-15) Blood Urea Nitrogen 43 mg/dL (7-18) H Creatinine 1.4 MG/DL (0.55-1.30) H Estimat Glomerular Filtration Rate 52.6 mL/min (>60) Glucose Level 96 MG/DL (74-106) # Calcium Level 8.8 MG/DL (8.5-10.1) Phosphorus Level 2.8 MG/DL (2.5-4.9) Magnesium Level 2.0 MG/DL (1.8-2.4) Total Bilirubin 3.0 MG/DL (0.2-1.0) H Direct Bilirubin 1.5 MG/DL (0.0-0.3) H Aspartate Amino Transf (AST/SGOT) 229 U/L (15-37) H Alanine Aminotransferase (ALT/SGPT) 150 U/L (12-78) H Alkaline Phosphatase 251 U/L (46-116) H C-Reactive Protein, Quantitative 5.0 mg/dL (0.00-0.90) H Total Protein 6.9 G/DL (6.4-8.2) Albumin 2.5 G/DL (3.4-5.0) L Globulin 4.4 g/dL Albumin/Globulin Ratio 0.6 (1.0-2.7) L Vancomycin Level Trough 7.0 ug/mL (5.0-12.0) Hepatitis A IgM Antibody Pending Hepatitis B Surface Antigen Pending Hepatitis B Core IgM Antibody Pending Hepatitis C Antibody Pending Current Medications Medications (Trade) Dose Ordered Sig/Roseline Route PRN Reason Start Time Stop Time Status Last Admin Dose Admin Acetaminophen (Tylenol) 650 mg Q4H PRN ORAL fever (temp>100.5F) 03/02/18 14:00 03/30/18 13:59 Albuterol/ Ipratropium (Albuterol/ Ipratropium) 3 ml Q4H PRN HHN Shortness of Breath 03/02/18 14:00 03/05/18 13:59 Apixaban (Eliquis) 5 mg BID ORAL 03/02/18 18:00 03/31/18 17:59 Carvedilol (Coreg) 12.5 mg EVERY 12 HOURS ORAL 03/02/18 21:00 04/01/18 20:59 Cefazolin Sodium 1 gm/Dextrose 55 ml @ 110 mls/hr Q8H IVPB 03/02/18 17:30 03/09/18 01:29 Chlorhexidine Gluconate (Ashley-Hex 2%) 1 applic DAILY@2000 TOPIC 03/02/18 20:00 04/01/18 19:59 Dextrose (Dextrose 50%) 25 ml Q30M PRN IV Hypoglycemia 03/02/18 14:00 03/30/18 13:59 Dextrose (Dextrose 50%) 50 ml Q30M PRN IV Hypoglycemia 03/02/18 14:00 03/30/18 13:59 Diltiazem HCl 125 mg/Dextrose 125 ml @ 5 mls/hr Q24H IV 03/02/18 15:00 04/01/18 14:59 Furosemide (Lasix) 20 mg DAILY IV 03/03/18 09:00 04/01/18 08:59 Haloperidol Lactate (Haldol) 5 mg Q4H PRN IM Agitation 03/02/18 17:30 03/31/18 09:28 Heparin Sodium/ Sodium Chloride (Heparin 2000 units/Ns 1000ml premix) 2,000 unit ONCE PRN INJ PICC LINE 03/02/18 13:45 03/02/18 23:59 Insulin Aspart (NovoLOG) BEFORE MEALS AND HS SUBQ 03/02/18 16:30 03/31/18 16:29 Lidocaine HCl (Xylocaine 1% 30ml) 30 ml ONCE PRN INJ PICC LINE 03/02/18 13:45 03/02/18 23:59 Lorazepam (Ativan 2mg/ml 1ml) 1 mg Q4H PRN IV For Anxiety 03/02/18 17:00 03/08/18 16:59 Metoprolol Tartrate (Lopressor) 10 mg Q1H PRN IVP Heart rate >120 per minute 03/02/18 14:30 03/31/18 02:29 Morphine Sulfate (Morphine Sulfate) 2 mg Q4H PRN IVP Moderate Pain (Pain Scale 4-6) 03/02/18 14:00 03/07/18 13:59 Nitroglycerin (Ntg) 0.4 mg Q5M PRN SL Prn Chest Pain 03/02/18 13:50 03/30/18 21:44 Ondansetron HCl (Zofran) 4 mg Q6H PRN IVP Nausea & Vomiting 03/02/18 14:00 03/30/18 13:59 Polyethylene Glycol (Miralax) 17 gm DAILYPRN PRN ORAL Constipation 03/02/18 14:00 04/01/18 13:59 Temazepam (Restoril) 15 mg HSPRN PRN ORAL Insomnia 03/02/18 19:00 03/09/18 18:59 Vancomycin HCl (Vanco rx to dose) 1 ea DAILY PRN MISC rx protocol 03/02/18 14:00 04/01/18 13:59 Vancomycin HCl/ Dextrose 250 ml @ 125 mls/hr Q12HR IVPB 03/02/18 21:00 03/07/18 08:59 Susan Dennis M.D. Mar 02, 2018 16:37
--- NOTE | 2018-03-02 16:59 | General Surgery Progress Note ---
General Surgery-Progress Note Subjective Additional Comments combative; non compliant. in ICU now Objective Last 24 Hour Vital Signs Date Time Temp Pulse Resp B/P (MAP) Pulse Ox O2 Delivery O2 Flow Rate FiO2 03/02/18 16:30 94 17 109/62 (78) 95 03/02/18 16:00 97 18 116/71 (86) 98 03/02/18 16:00 89 03/02/18 15:30 95 14 128/80 (96) 98 03/02/18 15:00 111 21 121/75 (90) 97 03/02/18 14:30 97.6 97 27 139/85 (103) 98 03/02/18 14:00 87 16 116/71 (86) 98 03/02/18 13:30 87 16 113/64 (80) 98 03/02/18 13:00 91 116/71 03/02/18 13:00 86 12 109/64 (79) 98 03/02/18 12:30 96 15 97/60 (72) 98 03/02/18 12:00 95 03/02/18 12:00 95 112/59 03/02/18 12:00 96 15 112/59 (76) 98 03/02/18 10:50 97.5 156 30 125/88 (100) 99 03/02/18 09:30 170 03/02/18 09:11 180 143/93 03/02/18 09:00 170 143/93 03/02/18 09:00 Room Air 03/02/18 08:15 156 24 Room Air 21 03/02/18 08:00 168 03/02/18 08:00 97.3 172 26 136/93 (107) 99 03/02/18 04:00 97 03/02/18 04:00 97.2 109 18 130/93 (105) 99 03/02/18 00:11 148 03/02/18 00:00 97.7 150 22 135/114 (121) 97 03/02/18 00:00 153 03/01/18 21:53 135 28 Room Air 2.0 28 03/01/18 21:00 Room Air 03/01/18 20:54 141 139/84 03/01/18 20:00 151 03/01/18 20:00 98.0 141 30 139/84 (102) 95 03/01/18 19:05 146 118/50 11/29/18 18:28 142 03/01/18 17:29 170 118/50 I&O Intake and Output 03/01/18 03/02/18 18:59 06:59 Intake Total 440 ml Balance 440 ml Intake Oral 440 ml # Voids 5 1 # Bowel Movements 1 2 Laboratory Tests Test 03/01/18 19:31 03/02/18 05:36 Arterial Blood pH 7.539 (7.350-7.450) Arterial Blood Partial Pressure CO2 23.5 mmHg (35.0-45.0) *L Arterial Blood Partial Pressure O2 83.0 mmHg (75.0-100.0) Arterial Blood HCO3 19.6 mmol/L (22.0-26.0) L Arterial Blood Oxygen Saturation 96.4 % (95-100) Arterial Blood Base Excess -1.0 (-2-2) Janes Test Positive White Blood Count 8.1 K/UL (4.8-10.8) Red Blood Count 5.45 M/UL (4.70-6.10) Hemoglobin 14.2 G/DL (14.2-18.0) Hematocrit 43.6 % (42.0-52.0) Mean Corpuscular Volume 80 FL (80-99) Mean Corpuscular Hemoglobin 26.1 PG (27.0-31.0) L Mean Corpuscular Hemoglobin Concent 32.7 G/DL (32.0-36.0) Red Cell Distribution Width 17.0 % (11.6-14.8) H Platelet Count 154 K/UL (150-450) Mean Platelet Volume 7.9 FL (6.5-10.1) Neutrophils (%) (Auto) 68.1 % (45.0-75.0) Lymphocytes (%) (Auto) 23.5 % (20.0-45.0) Monocytes (%) (Auto) 6.7 % (1.0-10.0) Eosinophils (%) (Auto) 0.3 % (0.0-3.0) Basophils (%) (Auto) 1.5 % (0.0-2.0) Erythrocyte Sedimentation Rate 7 MM/HR (0-20) Sodium Level 145 MMOL/L (136-145) Potassium Level 4.4 MMOL/L (3.5-5.1) Chloride Level 110 MMOL/L (98-107) H Carbon Dioxide Level 25 MMOL/L (21-32) Anion Gap 10 mmol/L (5-15) Blood Urea Nitrogen 43 mg/dL (7-18) H Creatinine 1.4 MG/DL (0.55-1.30) H Estimat Glomerular Filtration Rate 52.6 mL/min (>60) Glucose Level 96 MG/DL (74-106) # Calcium Level 8.8 MG/DL (8.5-10.1) Phosphorus Level 2.8 MG/DL (2.5-4.9) Magnesium Level 2.0 MG/DL (1.8-2.4) Total Bilirubin 3.0 MG/DL (0.2-1.0) H Direct Bilirubin 1.5 MG/DL (0.0-0.3) H Aspartate Amino Transf (AST/SGOT) 229 U/L (15-37) H Alanine Aminotransferase (ALT/SGPT) 150 U/L (12-78) H Alkaline Phosphatase 251 U/L (46-116) H C-Reactive Protein, Quantitative 5.0 mg/dL (0.00-0.90) H Total Protein 6.9 G/DL (6.4-8.2) Albumin 2.5 G/DL (3.4-5.0) L Globulin 4.4 g/dL Albumin/Globulin Ratio 0.6 (1.0-2.7) L Vancomycin Level Trough 7.0 ug/mL (5.0-12.0) Hepatitis A IgM Antibody Pending Hepatitis B Surface Antigen Pending Hepatitis B Core IgM Antibody Pending Hepatitis C Antibody Pending Plan Problems: (1) Abnormal LFTs Assessment & Plan: will obtain hepatitis panel US abdomen - Cholelithiasis; Borderline gallbladder wall thickening, could indicate early acute cholecystitis changes. Consider hepatobiliary nuclear scan if there is high clinical suspicion Negative for dilated ducts will monitor clinically for now trend labs (2) Cellulitis Assessment & Plan: chronic bilateral lower extremity wounds / ulcers acute on chronic cellulitis no abscess noted serous drainage multiple wounds that seem traumatic like cuts some small ulcers see wound photos for details -IV Abx as per ID -Keep legs elevated -apply skin protectant, hydrogel, non adherent dressings, and wrap -okay to ambulate. -venous and arterial studies ordered Garth Cornelius Mar 02, 2018 16:59
[2018-03-02] MEDS ORDERED: Dyna-Hex 2% Top Sol 2oz TOPIC SCH (20:00)
[2018-03-02] MEDS: Dyna-Hex 2% Top Sol 2oz TOPIC SCH (20:10)
[2018-03-02] MEDS: Vancomycin 1.5gm/D5W 250ml 250 ML IVPB SCH (20:52)
[2018-03-02] MEDS: Carvedilol 12.5mg tab ORAL SCH (20:53)
[2018-03-02] MEDS ORDERED: Carvedilol 6.25mg Tab ORAL SCH (21:00)
--- NOTE | 2018-03-02 22:26 | Cardiology Progress Note ---
Assessment/Plan Assessment/Plan 1. Atrial fibrillation with rapid ventricular response, not tolerating PO meds, transferred to ICU for cardizem gtt, continue digoxin, digpoxin level in am. Continue Eliquis given Chads Vasc score of 3. 2. Acute on chronic systolic and diastolic heart failure with LVEF at 25%, should resume guideline directed medical therapy. Subjective Subjective Transferred to the ICU for cardizem gtt as he showed high ventricular response. On cardizem gtt at 5 mg/hr. Objective Last 24 Hour Vital Signs Date Time Temp Pulse Resp B/P (MAP) Pulse Ox O2 Delivery O2 Flow Rate FiO2 03/02/18 20:53 110 119/66 03/02/18 18:54 99 Nasal Cannula 2.0 28 03/02/18 18:54 Nasal Cannula 2.0 28 03/02/18 18:54 111 19 Nasal Cannula 2.0 28 03/02/18 18:30 113 10 133/95 (108) 97 03/02/18 18:01 112 23 131/61 (84) 98 03/02/18 17:30 100 28 111/65 (80) 98 03/02/18 17:00 92 16 109/69 (82) 96 03/02/18 16:30 94 17 109/62 (78) 95 03/02/18 16:00 97 18 116/71 (86) 98 03/02/18 16:00 89 03/02/18 15:30 95 14 128/80 (96) 98 03/02/18 15:00 111 21 121/75 (90) 97 03/02/18 14:30 97.6 97 27 139/85 (103) 98 03/02/18 14:00 87 16 116/71 (86) 98 03/02/18 13:30 87 16 113/64 (80) 98 03/02/18 13:00 91 116/71 03/02/18 13:00 86 12 109/64 (79) 98 03/02/18 12:30 96 15 97/60 (72) 98 03/02/18 12:00 95 03/02/18 12:00 95 112/59 03/02/18 12:00 96 15 112/59 (76) 98 03/02/18 10:50 97.5 156 30 125/88 (100) 99 03/02/18 09:30 170 03/02/18 09:11 180 143/93 03/02/18 09:00 170 143/93 03/02/18 09:00 Room Air 03/02/18 08:15 156 24 Room Air 21 03/02/18 08:00 168 03/02/18 08:00 97.3 172 26 136/93 (107) 99 03/02/18 04:00 97 03/02/18 04:00 97.2 109 18 130/93 (105) 99 03/02/18 00:11 148 03/02/18 00:00 97.7 150 22 135/114 (121) 97 03/02/18 00:00 153 Intake and Output 03/01/18 03/02/18 19:00 07:00 Intake Total 440 ml Balance 440 ml Intake Oral 440 ml # Voids 5 1 # Bowel Movements 1 2 2D Echo: LVEF 25%, Bi-atrial enlargement, Mild MR, RVSP 24 mmHg, RAP 15 mmHg Laboratory Tests Test 03/02/18 05:36 White Blood Count 8.1 K/UL (4.8-10.8) Red Blood Count 5.45 M/UL (4.70-6.10) Hemoglobin 14.2 G/DL (14.2-18.0) Hematocrit 43.6 % (42.0-52.0) Mean Corpuscular Volume 80 FL (80-99) Mean Corpuscular Hemoglobin 26.1 PG (27.0-31.0) L Mean Corpuscular Hemoglobin Concent 32.7 G/DL (32.0-36.0) Red Cell Distribution Width 17.0 % (11.6-14.8) H Platelet Count 154 K/UL (150-450) Mean Platelet Volume 7.9 FL (6.5-10.1) Neutrophils (%) (Auto) 68.1 % (45.0-75.0) Lymphocytes (%) (Auto) 23.5 % (20.0-45.0) Monocytes (%) (Auto) 6.7 % (1.0-10.0) Eosinophils (%) (Auto) 0.3 % (0.0-3.0) Basophils (%) (Auto) 1.5 % (0.0-2.0) Erythrocyte Sedimentation Rate 7 MM/HR (0-20) Sodium Level 145 MMOL/L (136-145) Potassium Level 4.4 MMOL/L (3.5-5.1) Chloride Level 110 MMOL/L (98-107) H Carbon Dioxide Level 25 MMOL/L (21-32) Anion Gap 10 mmol/L (5-15) Blood Urea Nitrogen 43 mg/dL (7-18) H Creatinine 1.4 MG/DL (0.55-1.30) H Estimat Glomerular Filtration Rate 52.6 mL/min (>60) Glucose Level 96 MG/DL (74-106) # Calcium Level 8.8 MG/DL (8.5-10.1) Phosphorus Level 2.8 MG/DL (2.5-4.9) Magnesium Level 2.0 MG/DL (1.8-2.4) Total Bilirubin 3.0 MG/DL (0.2-1.0) H Direct Bilirubin 1.5 MG/DL (0.0-0.3) H Aspartate Amino Transf (AST/SGOT) 229 U/L (15-37) H Alanine Aminotransferase (ALT/SGPT) 150 U/L (12-78) H Alkaline Phosphatase 251 U/L (46-116) H C-Reactive Protein, Quantitative 5.0 mg/dL (0.00-0.90) H Total Protein 6.9 G/DL (6.4-8.2) Albumin 2.5 G/DL (3.4-5.0) L Globulin 4.4 g/dL Albumin/Globulin Ratio 0.6 (1.0-2.7) L Vancomycin Level Trough 7.0 ug/mL (5.0-12.0) Hepatitis A IgM Antibody Pending Hepatitis B Surface Antigen Pending Hepatitis B Core IgM Antibody Pending Hepatitis C Antibody Pending Microbiology Date/Time Source Procedure Growth Status 02/28/18 20:38 Blood Blood Culture - Preliminary NO GROWTH AFTER 24 HOURS Resulted 02/28/18 20:25 Blood Blood Culture - Preliminary NO GROWTH AFTER 24 HOURS Resulted 02/28/18 19:09 Blood Blood Culture - Preliminary NO GROWTH AFTER 24 HOURS Resulted 02/28/18 23:00 Leg Left Gram Stain - Final Resulted 02/28/18 23:00 Wound Culture - Preliminary Staphylococcus Aureus Resulted Objective HEENT: Atraumatic and normocephalic. Anicteric. Pupils are equal, round, and reactive to light and accommodation. Extraocular muscles intact. NECK: JVP elevated about 25 cm. No carotid bruits. Carotid upstrokes 2+ bilaterally. CARDIOVASCULAR: Normal S1, S2. Irregularly irregular rhythm. Cannot appreciate murmur, gallop, or rub. LUNGS: Diminished BS both lungs. ABDOMEN: Soft, nontender, and nondistended. No hepatosplenomegaly. Positive bowel sounds. EXTREMITIES: There is 2+ to 3+ bilateral lower extremity edema with ulcerations. Sudarshan Stuart MD Mar 02, 2018 22:26
[2018-03-03] VITALS (50 sets, daily range): BP systolic 104–167; BP diastolic 52–111
[2018-03-03] MEDS: ceFAZolin sod 1 GM in D5W 55 ML IVPB SCH ×2 (01:30→09:22)
[2018-03-03] MEDS: LORazepam Inj 2mg/ml 1ml IV PRN ×3 (02:40→20:08)
[2018-03-03] MEDS: Haloperidol 5mg/ml Inj IM PRN (05:32)
[2018-03-03] MEDS: NovoLOG Insulin Flexpen SUBQ SCH ×4 (06:06→21:00)
[2018-03-03 06:13] LABS: EOSINOPHILS % (AUTO) 0.1 % (0.0-3.0); HEMATOCRIT 51.1 % (42.0-52.0); HEMOGLOBIN 16.3 G/DL (14.2-18.0); MEAN CORPUSCULAR VOLUME 81 FL (80-99); MONOCYTES % (AUTO) 6.2 % (1.0-10.0); NEUTROPHILS % (AUTO) 83.7 % (45.0-75.0); PLATELET COUNT 217 K/UL (150-450); RED BLOOD COUNT 6.29 M/UL (4.70-6.10); RED CELL DISTRIBUTION WIDTH 17.5 % (11.6-14.8); WHITE BLOOD COUNT 11.2 K/UL (4.8-10.8)
[2018-03-03 06:41] LABS: ALANINE AMINOTRANSFERASE 401 U/L (12-78); ALBUMIN 2.6 G/DL (3.4-5.0); ALBUMIN/GLOBULIN RATIO 0.6 (1.0-2.7); ALKALINE PHOSPHATASE 253 U/L (46-116); ANION GAP 14 mmol/L (5-15); ASPARTATE AMINO TRANSFERASE 433 U/L (15-37); BILIRUBIN,TOTAL 4.1 MG/DL (0.2-1.0); BLOOD UREA NITROGEN 46 mg/dL (7-18); CALCIUM 9.1 MG/DL (8.5-10.1); CARBON DIOXIDE 22 MMOL/L (21-32); CHLORIDE 111 MMOL/L (98-107); CREATININE 1.7 MG/DL (0.55-1.30); POTASSIUM 4.9 MMOL/L (3.5-5.1); SODIUM 146 MMOL/L (136-145)
[2018-03-03 06:44] LABS: BILIRUBIN,DIRECT 2.1 MG/DL (0.0-0.3)
--- NOTE | 2018-03-03 08:27 | General Progress Note ---
Assessment/Plan Problem List: (1) Diabetes ICD Codes: E11.9 - Type 2 diabetes mellitus without complications SNOMED: 87045621 (2) Cellulitis ICD Codes: L03.90 - Cellulitis, unspecified SNOMED: 717562673 (3) Acute renal failure ICD Codes: N17.9 - Acute kidney failure, unspecified SNOMED: 78899079 (4) Rapid atrial fibrillation ICD Codes: I48.91 - Unspecified atrial fibrillation SNOMED: 516688178 Status: unchanged Assessment/Plan o2 pulm tx cardio f/u abx cbc bmp am Subjective Constitutional: Reports: weakness Allergies: Coded Allergies: No Known Allergies (Unverified , 02/16/18) All Systems: reviewed and negative except above Subjective o2nc sleeping in icu Objective Last 24 Hour Vital Signs Date Time Temp Pulse Resp B/P (MAP) Pulse Ox O2 Delivery O2 Flow Rate FiO2 03/03/18 07:30 150 26 146/87 (106) 98 03/03/18 07:13 99 Nasal Cannula 2.0 28 03/03/18 07:13 Nasal Cannula 2.0 28 03/03/18 07:13 166 26 Nasal Cannula 2.0 28 03/03/18 07:00 134 26 142/92 (109) 84 03/03/18 06:30 145 26 152/92 (112) 03/03/18 06:30 153 28 152/92 (112) 99 03/03/18 06:00 146 25 135/88 (104) 100 03/03/18 06:00 146 28 135/88 (104) 99 03/03/18 05:30 152 24 156/96 (116) 93 03/03/18 05:30 152 23 156/96 (116) 97 03/03/18 05:00 144 27 141/75 (97) 03/03/18 05:00 146 23 141/75 (97) 97 03/03/18 04:30 150 23 121/103 (109) 86 03/03/18 04:30 97.0 152 30 121/91 (101) 99 03/03/18 04:16 135 123/87 03/03/18 04:00 136 20 123/87 (99) 03/03/18 04:00 140 22 128/87 (101) 96 03/03/18 04:00 140 03/03/18 03:30 152 26 146/92 (110) 03/03/18 03:30 150 27 146/92 (110) 98 03/03/18 03:00 131 17 134/72 (92) 98 03/03/18 03:00 138 27 86 03/03/18 02:55 129 19 134/72 (92) 03/03/18 02:30 142 27 124/82 (96) 97 03/03/18 02:30 142 27 99 03/03/18 02:00 113 19 120/79 (93) 97 03/03/18 02:00 113 18 120/79 (93) 03/03/18 01:30 157 22 125/79 (94) 03/03/18 01:30 154 24 125/79 (94) 97 03/03/18 01:00 126 18 128/79 (95) 03/03/18 01:00 131 21 128/79 (95) 97 03/03/18 00:30 106 17 113/52 (72) 03/03/18 00:30 102 17 113/52 (72) 95 03/03/18 00:00 135 03/03/18 00:00 135 21 119/77 (91) 95 03/03/18 00:00 136 21 119/77 (91) 83 03/02/18 23:30 102 20 129/70 (89) 97 03/02/18 23:00 99 16 129/70 (89) 95 03/02/18 22:30 102 16 117/74 (88) 97 03/02/18 22:00 125 24 129/93 (105) 97 03/02/18 21:30 91 17 120/80 (93) 97 03/02/18 21:00 Nasal Cannula 2.0 03/02/18 21:00 106 14 124/79 (94) 97 03/02/18 20:53 110 119/66 03/02/18 20:30 94 20 119/66 (83) 94 03/02/18 20:00 93 03/02/18 20:00 97.8 93 18 117/68 (84) 96 03/02/18 19:30 112 17 137/90 (106) 96 03/02/18 19:00 121 22 131/84 (100) 96 03/02/18 18:54 99 Nasal Cannula 2.0 28 11/30/18 18:54 Nasal Cannula 2.0 28 03/02/18 18:54 111 19 Nasal Cannula 2.0 28 03/02/18 18:30 113 10 133/95 (108) 97 03/02/18 18:01 112 23 131/61 (84) 98 03/02/18 17:30 100 28 111/65 (80) 98 03/02/18 17:00 92 16 109/69 (82) 96 03/02/18 16:30 94 17 109/62 (78) 95 03/02/18 16:00 97 18 116/71 (86) 98 03/02/18 16:00 89 03/02/18 15:30 95 14 128/80 (96) 98 03/02/18 15:00 111 21 121/75 (90) 97 03/02/18 14:30 97.6 97 27 139/85 (103) 98 03/02/18 14:00 87 16 116/71 (86) 98 03/02/18 13:30 87 16 113/64 (80) 98 03/02/18 13:00 91 116/71 03/02/18 13:00 86 12 109/64 (79) 98 03/02/18 12:30 96 15 97/60 (72) 98 03/02/18 12:00 95 03/02/18 12:00 95 112/59 03/02/18 12:00 96 15 112/59 (76) 98 03/02/18 10:50 97.5 156 30 125/88 (100) 99 03/02/18 09:30 170 03/02/18 09:11 180 143/93 03/02/18 09:00 170 143/93 03/02/18 09:00 Room Air Intake and Output 03/02/18 03/03/18 19:00 07:00 Intake Total 385 ml 360 ml Output Total 220 ml 570 ml Balance 165 ml -210 ml IV Total 385 ml 360 ml Output Urine Total 220 ml 570 ml # Voids 5 2 # Bowel Movements 2 Laboratory Tests 03/03/18 05:55: White Blood Count 11.2H, Red Blood Count 6.29H, Hemoglobin 16.3, Hematocrit 51.1 , Mean Corpuscular Volume 81, Mean Corpuscular Hemoglobin 25.9L, Mean Corpuscular Hemoglobin Concent 31.9L, Red Cell Distribution Width 17.5H, Platelet Count 217, Mean Platelet Volume 7.1, Neutrophils (%) (Auto) 83.7H, Lymphocytes (%) (Auto) 9.0L, Monocytes (%) (Auto) 6.2, Eosinophils (%) (Auto) 0.1, Basophils (%) (Auto) 1.0, Sodium Level 146H, Potassium Level 4.9, Chloride Level 111H, Carbon Dioxide Level 22, Anion Gap 14, Blood Urea Nitrogen 46H, Creatinine 1.7H, Estimat Glomerular Filtration Rate 42.1, Glucose Level 162H, Calcium Level 9.1, Total Bilirubin 4.1H, Direct Bilirubin 2.1H, Aspartate Amino Transf (AST/SGOT) 433H, Alanine Aminotransferase (ALT/SGPT) 401H, Alkaline Phosphatase 253H, Pro-B-Type Natriuretic Peptide 9067H, Total Protein 7.2, Albumin 2.6L, Globulin 4.6, Albumin/Globulin Ratio 0.6L, HIV (1&2) Antibody Rapid Negative Height (Feet): 6 Height (Inches): 0.00 Weight (Pounds): 270 General Appearance: lethargic EENT: normal ENT inspection Neck: normal alignment Cardiovascular: normal peripheral pulses, normal rate, regular rhythm Respiratory/Chest: chest wall non-tender, lungs clear, normal breath sounds Abdomen: normal bowel sounds, non tender, soft Extremities: normal inspection Edema: no edema noted Arm (L), no edema noted Arm (R), no edema noted Leg (L), no edema noted Leg (R), no edema noted Pedal (L), no edema noted Pedal (R), no edema noted Generalized Neurologic: motor weakness Skin: normal pigmentation, warm/dry Mick Garcia DO Mar 03, 2018 08:27
[2018-03-03] MEDS: Carvedilol 12.5mg tab ORAL SCH (09:09)
[2018-03-03] MEDS: Eliquis 2.5mg tablet ORAL SCH ×2 (09:10→17:17)
[2018-03-03] MEDS: Vancomycin 1.5gm/D5W 250ml 250 ML IVPB SCH ×2 (09:23→21:28)
--- NOTE | 2018-03-03 11:26 | Infectious Diseases Prog Note ---
Assessment/Plan Assessment/Plan Assessment: B/l LE purulent cellulitis- legs with scratches (self inflicted) -wound cx MRSA -L foot tibia/fibula xray: No acute process -R foot tibia/fibula xray: No acute bony trauma Afebrile Mild leukocytosis Afib w/ RVR ElevatedLFTs, increasing - r/o acute cholecystitis -Abd US: Cholelithiasis. Borderline gallbladder wall thickening, could indicate early acute cholecystitis changes. Consider hepatobiliary nuclear scan if there is high clinical suspicion. Negative for dilated ducts Incidental finding bilateral pleural effusions -acute hep panel, HIV sc neg DM2 HTN CHF Schizoaffective disorder Plan: -Continue IV Vancomycin #4 and d/c Ancef abx d#4 for cellulitis -03/01 SP Cefepime #2 -HIDA scan -if +, then start Ceftriaxone -f/u cx -Monitor CBC/CMP, temperatures -wound care -Sx f/u -GI eval Thank you for this consultation. Will continue to follow along with you. Discussed with RN. Subjective Allergies: Coded Allergies: No Known Allergies (Unverified , 02/16/18) Subjective remains in ICU afebrile at 2l mild leukocytosis LFTs increased Objective Vital Signs Last 24 Hour Vital Signs Date Time Temp Pulse Resp B/P (MAP) Pulse Ox O2 Delivery O2 Flow Rate FiO2 03/03/18 10:00 156 33 147/100 (116) 03/03/18 09:30 157 37 151/98 (115) 03/03/18 09:09 156 149/99 03/03/18 09:00 Nasal Cannula 2.0 03/03/18 09:00 156 31 149/99 (116) 03/03/18 08:30 147 34 152/100 (117) 03/03/18 08:00 108 29 135/102 (113) 89 03/03/18 08:00 143 03/03/18 07:30 150 26 146/87 (106) 98 03/03/18 07:13 99 Nasal Cannula 2.0 28 03/03/18 07:13 Nasal Cannula 2.0 28 03/03/18 07:13 166 26 Nasal Cannula 2.0 28 03/03/18 07:00 134 26 142/92 (109) 84 03/03/18 06:30 145 26 152/92 (112) 03/03/18 06:30 153 28 152/92 (112) 99 03/03/18 06:00 146 25 135/88 (104) 100 03/03/18 06:00 146 28 135/88 (104) 99 03/03/18 06:00 146 25 135/88 (104) 100 03/03/18 05:30 152 24 156/96 (116) 93 03/03/18 05:30 152 23 156/96 (116) 97 03/03/18 05:30 152 24 156/96 (116) 93 03/03/18 05:00 144 27 141/75 (97) 03/03/18 05:00 144 27 141/75 (97) 03/03/18 05:00 146 23 141/75 (97) 97 03/03/18 04:30 150 23 121/103 (109) 86 03/03/18 04:30 150 23 121/103 (109) 86 03/03/18 04:30 97.0 152 30 121/91 (101) 99 03/03/18 04:16 135 123/87 03/03/18 04:00 136 20 123/87 (99) 03/03/18 04:00 140 22 128/87 (101) 96 03/03/18 04:00 140 03/03/18 04:00 136 20 123/87 (99) 03/03/18 03:30 152 26 146/92 (110) 03/03/18 03:30 150 27 146/92 (110) 98 03/03/18 03:30 152 26 146/92 (110) 03/03/18 03:00 131 17 134/72 (92) 98 03/03/18 03:00 138 27 86 03/03/18 03:00 138 27 86 03/03/18 02:55 129 19 134/72 (92) 03/03/18 02:55 129 19 134/72 (92) 03/03/18 02:30 142 27 124/82 (96) 97 03/03/18 02:30 142 27 99 03/03/18 02:30 142 27 99 03/03/18 02:00 113 18 120/79 (93) 03/03/18 02:00 113 19 120/79 (93) 97 03/03/18 02:00 113 18 120/79 (93) 03/03/18 01:30 157 22 125/79 (94) 03/03/18 01:30 157 22 125/79 (94) 03/03/18 01:30 154 24 125/79 (94) 97 03/03/18 01:00 126 18 128/79 (95) 03/03/18 01:00 126 18 128/79 (95) 03/03/18 01:00 131 21 128/79 (95) 97 03/03/18 00:30 106 17 113/52 (72) 03/03/18 00:30 102 17 113/52 (72) 95 03/03/18 00:30 106 17 113/52 (72) 03/03/18 00:00 136 21 119/77 (91) 83 03/03/18 00:00 135 03/03/18 00:00 135 21 119/77 (91) 95 03/03/18 00:00 136 21 119/77 (91) 83 03/02/18 23:30 102 20 129/70 (89) 97 03/02/18 23:00 99 16 129/70 (89) 95 03/02/18 22:30 102 16 117/74 (88) 97 03/02/18 22:00 125 24 129/93 (105) 97 03/02/18 21:30 91 17 120/80 (93) 97 03/02/18 21:00 Nasal Cannula 2.0 03/02/18 21:00 106 14 124/79 (94) 97 03/02/18 20:53 110 119/66 03/02/18 20:30 94 20 119/66 (83) 94 03/02/18 20:00 93 03/02/18 20:00 97.8 93 18 117/68 (84) 96 03/02/18 19:30 112 17 137/90 (106) 96 03/02/18 19:00 121 22 131/84 (100) 96 03/02/18 18:54 99 Nasal Cannula 2.0 28 03/02/18 18:54 Nasal Cannula 2.0 28 03/02/18 18:54 111 19 Nasal Cannula 2.0 28 03/02/18 18:30 113 10 133/95 (108) 97 03/02/18 18:01 112 23 131/61 (84) 98 03/02/18 17:30 100 28 111/65 (80) 98 03/02/18 17:00 92 16 109/69 (82) 96 03/02/18 16:30 94 17 109/62 (78) 95 03/02/18 16:00 97 18 116/71 (86) 98 03/02/18 16:00 89 03/02/18 15:30 95 14 128/80 (96) 98 03/02/18 15:00 111 21 121/75 (90) 97 03/02/18 14:30 97.6 97 27 139/85 (103) 98 03/02/18 14:00 87 16 116/71 (86) 98 03/02/18 13:30 87 16 113/64 (80) 98 03/02/18 13:00 91 116/71 03/02/18 13:00 86 12 109/64 (79) 98 03/02/18 12:30 96 15 97/60 (72) 98 03/02/18 12:00 95 03/02/18 12:00 95 112/59 03/02/18 12:00 96 15 112/59 (76) 98 Height (Feet): 6 Height (Inches): 0.00 Weight (Pounds): 270 Objective General Appearance: WD/WN Lines, tubes and drains: peripheral HEENT: normocephalic, atraumatic Neck: non-tender, normal alignment Respiratory/Chest: chest wall non-tender, lungs clear Breasts: no masses Cardiovascular/Chest: normal peripheral pulses Abdomen: normal bowel sounds, non tender Extremities: B/l leg erythema, swelling, with scratches and some minimal drainage Microbiology Date/Time Source Procedure Growth Status 02/28/18 20:38 Blood Blood Culture - Preliminary NO GROWTH AFTER 48 HOURS Resulted 02/28/18 20:25 Blood Blood Culture - Preliminary NO GROWTH AFTER 48 HOURS Resulted 02/28/18 19:09 Blood Blood Culture - Preliminary NO GROWTH AFTER 48 HOURS Resulted 02/28/18 23:00 Leg Left Gram Stain - Final Complete 02/28/18 23:00 Wound Culture - Final Staphylococcus Aureus - Mrsa Diphtheroids Complete Laboratory Tests Test 03/03/18 05:55 White Blood Count 11.2 K/UL (4.8-10.8) H Red Blood Count 6.29 M/UL (4.70-6.10) H Hemoglobin 16.3 G/DL (14.2-18.0) Hematocrit 51.1 % (42.0-52.0) Mean Corpuscular Volume 81 FL (80-99) Mean Corpuscular Hemoglobin 25.9 PG (27.0-31.0) L Mean Corpuscular Hemoglobin Concent 31.9 G/DL (32.0-36.0) L Red Cell Distribution Width 17.5 % (11.6-14.8) H Platelet Count 217 K/UL (150-450) Mean Platelet Volume 7.1 FL (6.5-10.1) Neutrophils (%) (Auto) 83.7 % (45.0-75.0) H Lymphocytes (%) (Auto) 9.0 % (20.0-45.0) L Monocytes (%) (Auto) 6.2 % (1.0-10.0) Eosinophils (%) (Auto) 0.1 % (0.0-3.0) Basophils (%) (Auto) 1.0 % (0.0-2.0) Sodium Level 146 MMOL/L (136-145) H Potassium Level 4.9 MMOL/L (3.5-5.1) Chloride Level 111 MMOL/L (98-107) H Carbon Dioxide Level 22 MMOL/L (21-32) Anion Gap 14 mmol/L (5-15) Blood Urea Nitrogen 46 mg/dL (7-18) H Creatinine 1.7 MG/DL (0.55-1.30) H Estimat Glomerular Filtration Rate 42.1 mL/min (>60) Glucose Level 162 MG/DL (74-106) H Calcium Level 9.1 MG/DL (8.5-10.1) Total Bilirubin 4.1 MG/DL (0.2-1.0) H Direct Bilirubin 2.1 MG/DL (0.0-0.3) H Aspartate Amino Transf (AST/SGOT) 433 U/L (15-37) H Alanine Aminotransferase (ALT/SGPT) 401 U/L (12-78) H Alkaline Phosphatase 253 U/L (46-116) H Pro-B-Type Natriuretic Peptide 9067 pg/mL (0-125) H Total Protein 7.2 G/DL (6.4-8.2) Albumin 2.6 G/DL (3.4-5.0) L Globulin 4.6 g/dL Albumin/Globulin Ratio 0.6 (1.0-2.7) L HIV (1&2) Antibody Rapid Negative (NEGATIVE) Current Medications Medications (Trade) Dose Ordered Sig/Roseline Route PRN Reason Start Time Stop Time Status Last Admin Dose Admin Acetaminophen (Tylenol) 650 mg Q4H PRN ORAL fever (temp>100.5F) 03/02/18 14:00 03/30/18 13:59 Albuterol/ Ipratropium (Albuterol/ Ipratropium) 3 ml Q4H PRN HHN Shortness of Breath 03/02/18 14:00 03/05/18 13:59 Apixaban (Eliquis) 5 mg BID ORAL 03/02/18 18:00 03/31/18 17:59 03/03/18 09:10 Carvedilol (Coreg) 12.5 mg EVERY 12 HOURS ORAL 03/02/18 21:00 04/01/18 20:59 03/03/18 09:09 Chlorhexidine Gluconate (Ashley-Hex 2%) 1 applic DAILY@2000 TOPIC 03/02/18 20:00 04/01/18 19:59 03/02/18 20:10 Dextrose (Dextrose 50%) 25 ml Q30M PRN IV Hypoglycemia 03/02/18 14:00 03/30/18 13:59 Dextrose (Dextrose 50%) 50 ml Q30M PRN IV Hypoglycemia 03/02/18 14:00 03/30/18 13:59 Diltiazem HCl 125 mg/Dextrose 125 ml @ 5 mls/hr Q24H IV 03/02/18 15:00 04/01/18 14:59 03/03/18 04:16 Furosemide (Lasix) 20 mg DAILY IV 03/03/18 09:00 04/01/18 08:59 03/03/18 09:08 Haloperidol Lactate (Haldol) 5 mg Q4H PRN IM Agitation 03/02/18 17:30 03/31/18 09:28 03/03/18 05:32 Insulin Aspart (NovoLOG) BEFORE MEALS AND HS SUBQ 03/02/18 16:30 03/31/18 16:29 03/03/18 06:06 Lorazepam (Ativan 2mg/ml 1ml) 1 mg Q4H PRN IV For Anxiety 03/02/18 17:00 03/08/18 16:59 03/03/18 06:18 Metoprolol Tartrate (Lopressor) 10 mg Q1H PRN IVP Heart rate >120 per minute 03/02/18 14:30 03/31/18 02:29 Morphine Sulfate (Morphine Sulfate) 2 mg Q4H PRN IVP Moderate Pain (Pain Scale 4-6) 03/02/18 14:00 03/07/18 13:59 Nitroglycerin (Ntg) 0.4 mg Q5M PRN SL Prn Chest Pain 03/02/18 13:50 03/30/18 21:44 Ondansetron HCl (Zofran) 4 mg Q6H PRN IVP Nausea & Vomiting 03/02/18 14:00 03/30/18 13:59 Polyethylene Glycol (Miralax) 17 gm DAILYPRN PRN ORAL Constipation 03/02/18 14:00 04/01/18 13:59 Temazepam (Restoril) 15 mg HSPRN PRN ORAL Insomnia 03/02/18 19:00 03/09/18 18:59 Vancomycin HCl (Vanco rx to dose) 1 ea DAILY PRN MISC rx protocol 03/02/18 14:00 04/01/18 13:59 Vancomycin HCl/ Dextrose 250 ml @ 125 mls/hr Q12HR IVPB 03/02/18 21:00 03/07/18 08:59 03/03/18 09:23 Susan Dennis M.D. Mar 03, 2018 11:26
--- NOTE | 2018-03-03 13:20 | Diagnostic Imaging Report ---
EXAM: XR Chest, 1 View CLINICAL HISTORY: DYSPNEA TECHNIQUE: Frontal view of the chest. COMPARISON: Chest x-ray, 03/01/18 1309 FINDINGS: Lungs: No significant changes in the mild vascular and interstitial prominence No consolidation. Pleural space: Unremarkable. No pneumothorax. Heart: Cardiomegaly. Mediastinum: Unremarkable. Bones/joints: Unremarkable. IMPRESSION: No significant changes in the mild vascular and interstitial prominence and cardiomegaly. No definite pleural effusion.
--- NOTE | 2018-03-03 14:23 | Cardiology Progress Note ---
Assessment/Plan Assessment/Plan 1. Atrial fibrillation with rapid ventricular response likely driven by sepsis ( presence of leukocytosis), increase carvedilol, resume digoxin IV daily, continue cardizem gtt, digoxin level today. Continue Eliquis given Chads Vasc score of 3. 2. Acute on chronic systolic and diastolic heart failure with LVEF at 25%, associated severe mitral regurgitation, switch to lasix gtt at 5mg /hr, afterload reduction with hydralazine. 3. ALOC. 4. Sepsis/leukocytosis. Subjective Subjective Altered. Congested. Atrial fibrillation with RVR. Objective Last 24 Hour Vital Signs Date Time Temp Pulse Resp B/P (MAP) Pulse Ox O2 Delivery O2 Flow Rate FiO2 03/03/18 10:00 156 33 147/100 (116) 03/03/18 09:30 157 37 151/98 (115) 03/03/18 09:09 156 149/99 03/03/18 09:00 Nasal Cannula 2.0 03/03/18 09:00 156 31 149/99 (116) 03/03/18 08:30 147 34 152/100 (117) 03/03/18 08:00 108 29 135/102 (113) 89 03/03/18 08:00 143 03/03/18 07:30 150 26 146/87 (106) 98 03/03/18 07:13 99 Nasal Cannula 2.0 28 03/03/18 07:13 Nasal Cannula 2.0 28 03/03/18 07:13 166 26 Nasal Cannula 2.0 28 03/03/18 07:00 134 26 142/92 (109) 84 03/03/18 06:30 145 26 152/92 (112) 03/03/18 06:30 153 28 152/92 (112) 99 03/03/18 06:00 146 25 135/88 (104) 100 03/03/18 06:00 146 28 135/88 (104) 99 03/03/18 06:00 146 25 135/88 (104) 100 03/03/18 05:30 152 24 156/96 (116) 93 03/03/18 05:30 152 23 156/96 (116) 97 03/03/18 05:30 152 24 156/96 (116) 93 03/03/18 05:00 144 27 141/75 (97) 03/03/18 05:00 144 27 141/75 (97) 03/03/18 05:00 146 23 141/75 (97) 97 03/03/18 04:30 150 23 121/103 (109) 86 03/03/18 04:30 150 23 121/103 (109) 86 03/03/18 04:30 97.0 152 30 121/91 (101) 99 03/03/18 04:16 135 123/87 03/03/18 04:00 136 20 123/87 (99) 03/03/18 04:00 140 22 128/87 (101) 96 03/03/18 04:00 140 03/03/18 04:00 136 20 123/87 (99) 03/03/18 03:30 152 26 146/92 (110) 03/03/18 03:30 150 27 146/92 (110) 98 03/03/18 03:30 152 26 146/92 (110) 03/03/18 03:00 131 17 134/72 (92) 98 03/03/18 03:00 138 27 86 03/03/18 03:00 138 27 86 03/03/18 02:55 129 19 134/72 (92) 03/03/18 02:55 129 19 134/72 (92) 03/03/18 02:30 142 27 124/82 (96) 97 03/03/18 02:30 142 27 99 03/03/18 02:30 142 27 99 03/03/18 02:00 113 18 120/79 (93) 03/03/18 02:00 113 19 120/79 (93) 97 03/03/18 02:00 113 18 120/79 (93) 03/03/18 01:30 157 22 125/79 (94) 03/03/18 01:30 157 22 125/79 (94) 03/03/18 01:30 154 24 125/79 (94) 97 03/03/18 01:00 126 18 128/79 (95) 03/03/18 01:00 126 18 128/79 (95) 03/03/18 01:00 131 21 128/79 (95) 97 03/03/18 00:30 106 17 113/52 (72) 03/03/18 00:30 102 17 113/52 (72) 95 03/03/18 00:30 106 17 113/52 (72) 03/03/18 00:00 136 21 119/77 (91) 83 03/03/18 00:00 135 03/03/18 00:00 135 21 119/77 (91) 95 03/03/18 00:00 136 21 119/77 (91) 83 03/02/18 23:30 102 20 129/70 (89) 97 03/02/18 23:00 99 16 129/70 (89) 95 03/02/18 22:30 102 16 117/74 (88) 97 03/02/18 22:00 125 24 129/93 (105) 97 03/02/18 21:30 91 17 120/80 (93) 97 03/02/18 21:00 Nasal Cannula 2.0 03/02/18 21:00 106 14 124/79 (94) 97 03/02/18 20:53 110 119/66 03/02/18 20:30 94 20 119/66 (83) 94 03/02/18 20:00 93 03/02/18 20:00 97.8 93 18 117/68 (84) 96 03/02/18 19:30 112 17 137/90 (106) 96 03/02/18 19:00 121 22 131/84 (100) 96 03/02/18 18:54 99 Nasal Cannula 2.0 28 03/02/18 18:54 Nasal Cannula 2.0 28 03/02/18 18:54 111 19 Nasal Cannula 2.0 28 03/02/18 18:30 113 10 133/95 (108) 97 03/02/18 18:01 112 23 131/61 (84) 98 03/02/18 17:30 100 28 111/65 (80) 98 03/02/18 17:00 92 16 109/69 (82) 96 03/02/18 16:30 94 17 109/62 (78) 95 03/02/18 16:00 97 18 116/71 (86) 98 03/02/18 16:00 89 03/02/18 15:30 95 14 128/80 (96) 98 03/02/18 15:00 111 21 121/75 (90) 97 03/02/18 14:30 97.6 97 27 139/85 (103) 98 Intake and Output 03/02/18 03/03/18 18:59 06:59 Intake Total 380 ml 365 ml Output Total 690 ml Balance 380 ml -325 ml IV Total 380 ml 365 ml Output Urine Total 690 ml # Voids 4 3 # Bowel Movements 2 2D Echo: LVEF 25%, Bi-atrial enlargement, Severe MR, RVSP 24 mmHg, RAP 15 mmHg Laboratory Tests Test 03/03/18 05:55 White Blood Count 11.2 K/UL (4.8-10.8) H Red Blood Count 6.29 M/UL (4.70-6.10) H Hemoglobin 16.3 G/DL (14.2-18.0) Hematocrit 51.1 % (42.0-52.0) Mean Corpuscular Volume 81 FL (80-99) Mean Corpuscular Hemoglobin 25.9 PG (27.0-31.0) L Mean Corpuscular Hemoglobin Concent 31.9 G/DL (32.0-36.0) L Red Cell Distribution Width 17.5 % (11.6-14.8) H Platelet Count 217 K/UL (150-450) Mean Platelet Volume 7.1 FL (6.5-10.1) Neutrophils (%) (Auto) 83.7 % (45.0-75.0) H Lymphocytes (%) (Auto) 9.0 % (20.0-45.0) L Monocytes (%) (Auto) 6.2 % (1.0-10.0) Eosinophils (%) (Auto) 0.1 % (0.0-3.0) Basophils (%) (Auto) 1.0 % (0.0-2.0) Sodium Level 146 MMOL/L (136-145) H Potassium Level 4.9 MMOL/L (3.5-5.1) Chloride Level 111 MMOL/L (98-107) H Carbon Dioxide Level 22 MMOL/L (21-32) Anion Gap 14 mmol/L (5-15) Blood Urea Nitrogen 46 mg/dL (7-18) H Creatinine 1.7 MG/DL (0.55-1.30) H Estimat Glomerular Filtration Rate 42.1 mL/min (>60) Glucose Level 162 MG/DL (74-106) H Calcium Level 9.1 MG/DL (8.5-10.1) Total Bilirubin 4.1 MG/DL (0.2-1.0) H Direct Bilirubin 2.1 MG/DL (0.0-0.3) H Aspartate Amino Transf (AST/SGOT) 433 U/L (15-37) H Alanine Aminotransferase (ALT/SGPT) 401 U/L (12-78) H Alkaline Phosphatase 253 U/L (46-116) H Pro-B-Type Natriuretic Peptide 9067 pg/mL (0-125) H Total Protein 7.2 G/DL (6.4-8.2) Albumin 2.6 G/DL (3.4-5.0) L Globulin 4.6 g/dL Albumin/Globulin Ratio 0.6 (1.0-2.7) L HIV (1&2) Antibody Rapid Negative (NEGATIVE) Microbiology Date/Time Source Procedure Growth Status 02/28/18 20:38 Blood Blood Culture - Preliminary NO GROWTH AFTER 48 HOURS Resulted 02/28/18 20:25 Blood Blood Culture - Preliminary NO GROWTH AFTER 48 HOURS Resulted 02/28/18 19:09 Blood Blood Culture - Preliminary NO GROWTH AFTER 48 HOURS Resulted 02/28/18 23:00 Leg Left Gram Stain - Final Complete 02/28/18 23:00 Wound Culture - Final Staphylococcus Aureus - Mrsa Diphtheroids Complete Objective HEENT: Atraumatic and normocephalic. Anicteric. Pupils are equal, round, and reactive to light and accommodation. Extraocular muscles intact. NECK: JVP elevated about 25 cm. No carotid bruits. Carotid upstrokes 2+ bilaterally. CARDIOVASCULAR: Normal S1, S2. Irregularly irregular rhythm. 2/6 Holosystolic murmur, gallop, or rub. LUNGS: Diminished BS both lungs. ABDOMEN: Soft, nontender, and nondistended. No hepatosplenomegaly. Positive bowel sounds. EXTREMITIES: There is 2+ to 3+ bilateral lower extremity edema with ulcerations. Sudarshan Stuart MD Mar 03, 2018 14:23
[2018-03-03] MEDS: Digoxin 0.5mg/2ml Inj IVP SCH (15:19)
--- NOTE | 2018-03-03 15:38 | General Surgery Progress Note ---
General Surgery-Progress Note Subjective Additional Comments more calm today. labs noted. Objective Last 24 Hour Vital Signs Date Time Temp Pulse Resp B/P (MAP) Pulse Ox O2 Delivery O2 Flow Rate FiO2 03/03/18 15:19 147 03/03/18 10:00 156 33 147/100 (116) 03/03/18 09:30 157 37 151/98 (115) 03/03/18 09:09 156 149/99 03/03/18 09:00 Nasal Cannula 2.0 03/03/18 09:00 156 31 149/99 (116) 03/03/18 08:30 147 34 152/100 (117) 03/03/18 08:00 108 29 135/102 (113) 89 03/03/18 08:00 143 03/03/18 07:30 150 26 146/87 (106) 98 03/03/18 07:13 99 Nasal Cannula 2.0 28 03/03/18 07:13 Nasal Cannula 2.0 28 03/03/18 07:13 166 26 Nasal Cannula 2.0 28 03/03/18 07:00 134 26 142/92 (109) 84 03/03/18 06:30 145 26 152/92 (112) 03/03/18 06:30 153 28 152/92 (112) 99 03/03/18 06:00 146 25 135/88 (104) 100 03/03/18 06:00 146 28 135/88 (104) 99 03/03/18 06:00 146 25 135/88 (104) 100 03/03/18 05:30 152 24 156/96 (116) 93 03/03/18 05:30 152 23 156/96 (116) 97 03/03/18 05:30 152 24 156/96 (116) 93 03/03/18 05:00 144 27 141/75 (97) 03/03/18 05:00 144 27 141/75 (97) 03/03/18 05:00 146 23 141/75 (97) 97 03/03/18 04:30 150 23 121/103 (109) 86 03/03/18 04:30 150 23 121/103 (109) 86 03/03/18 04:30 97.0 152 30 121/91 (101) 99 03/03/18 04:16 135 123/87 03/03/18 04:00 136 20 123/87 (99) 03/03/18 04:00 140 22 128/87 (101) 96 03/03/18 04:00 140 03/03/18 04:00 136 20 123/87 (99) 03/03/18 03:30 152 26 146/92 (110) 03/03/18 03:30 150 27 146/92 (110) 98 03/03/18 03:30 152 26 146/92 (110) 03/03/18 03:00 131 17 134/72 (92) 98 03/03/18 03:00 138 27 86 03/03/18 03:00 138 27 86 03/03/18 02:55 129 19 134/72 (92) 03/03/18 02:55 129 19 134/72 (92) 03/03/18 02:30 142 27 124/82 (96) 97 03/03/18 02:30 142 27 99 03/03/18 02:30 142 27 99 03/03/18 02:00 113 18 120/79 (93) 03/03/18 02:00 113 19 120/79 (93) 97 03/03/18 02:00 113 18 120/79 (93) 03/03/18 01:30 157 22 125/79 (94) 03/03/18 01:30 157 22 125/79 (94) 03/03/18 01:30 154 24 125/79 (94) 97 03/03/18 01:00 126 18 128/79 (95) 03/03/18 01:00 126 18 128/79 (95) 03/03/18 01:00 131 21 128/79 (95) 97 03/03/18 00:30 106 17 113/52 (72) 03/03/18 00:30 102 17 113/52 (72) 95 03/03/18 00:30 106 17 113/52 (72) 03/03/18 00:00 136 21 119/77 (91) 83 03/03/18 00:00 135 03/03/18 00:00 135 21 119/77 (91) 95 03/03/18 00:00 136 21 119/77 (91) 83 03/02/18 23:30 102 20 129/70 (89) 97 03/02/18 23:00 99 16 129/70 (89) 95 03/02/18 22:30 102 16 117/74 (88) 97 03/02/18 22:00 125 24 129/93 (105) 97 03/02/18 21:30 91 17 120/80 (93) 97 03/02/18 21:00 Nasal Cannula 2.0 03/02/18 21:00 106 14 124/79 (94) 97 03/02/18 20:53 110 119/66 03/02/18 20:30 94 20 119/66 (83) 94 03/02/18 20:00 93 03/02/18 20:00 97.8 93 18 117/68 (84) 96 03/02/18 19:30 112 17 137/90 (106) 96 03/02/18 19:00 121 22 131/84 (100) 96 03/02/18 18:54 99 Nasal Cannula 2.0 28 03/02/18 18:54 Nasal Cannula 2.0 28 03/02/18 18:54 111 19 Nasal Cannula 2.0 28 03/02/18 18:30 113 10 133/95 (108) 97 03/02/18 18:01 112 23 131/61 (84) 98 03/02/18 17:30 100 28 111/65 (80) 98 03/02/18 17:00 92 16 109/69 (82) 96 03/02/18 16:30 94 17 109/62 (78) 95 03/02/18 16:00 97 18 116/71 (86) 98 03/02/18 16:00 89 I&O Intake and Output 03/02/18 03/03/18 18:59 06:59 Intake Total 380 ml 365 ml Output Total 690 ml Balance 380 ml -325 ml IV Total 380 ml 365 ml Output Urine Total 690 ml # Voids 4 3 # Bowel Movements 2 Dressing: saturated Wound: other Drains: other Cardiovascular: RSR Respiratory: clear Abdomen: soft, flat, non-tender, present bowel sounds Extremities: other Laboratory Tests Test 03/03/18 05:55 White Blood Count 11.2 K/UL (4.8-10.8) H Red Blood Count 6.29 M/UL (4.70-6.10) H Hemoglobin 16.3 G/DL (14.2-18.0) Hematocrit 51.1 % (42.0-52.0) Mean Corpuscular Volume 81 FL (80-99) Mean Corpuscular Hemoglobin 25.9 PG (27.0-31.0) L Mean Corpuscular Hemoglobin Concent 31.9 G/DL (32.0-36.0) L Red Cell Distribution Width 17.5 % (11.6-14.8) H Platelet Count 217 K/UL (150-450) Mean Platelet Volume 7.1 FL (6.5-10.1) Neutrophils (%) (Auto) 83.7 % (45.0-75.0) H Lymphocytes (%) (Auto) 9.0 % (20.0-45.0) L Monocytes (%) (Auto) 6.2 % (1.0-10.0) Eosinophils (%) (Auto) 0.1 % (0.0-3.0) Basophils (%) (Auto) 1.0 % (0.0-2.0) Sodium Level 146 MMOL/L (136-145) H Potassium Level 4.9 MMOL/L (3.5-5.1) Chloride Level 111 MMOL/L (98-107) H Carbon Dioxide Level 22 MMOL/L (21-32) Anion Gap 14 mmol/L (5-15) Blood Urea Nitrogen 46 mg/dL (7-18) H Creatinine 1.7 MG/DL (0.55-1.30) H Estimat Glomerular Filtration Rate 42.1 mL/min (>60) Glucose Level 162 MG/DL (74-106) H Calcium Level 9.1 MG/DL (8.5-10.1) Total Bilirubin 4.1 MG/DL (0.2-1.0) H Direct Bilirubin 2.1 MG/DL (0.0-0.3) H Aspartate Amino Transf (AST/SGOT) 433 U/L (15-37) H Alanine Aminotransferase (ALT/SGPT) 401 U/L (12-78) H Alkaline Phosphatase 253 U/L (46-116) H Pro-B-Type Natriuretic Peptide 9067 pg/mL (0-125) H Total Protein 7.2 G/DL (6.4-8.2) Albumin 2.6 G/DL (3.4-5.0) L Globulin 4.6 g/dL Albumin/Globulin Ratio 0.6 (1.0-2.7) L Digoxin Level 1.4 NG/ML (0.5-2.0) HIV (1&2) Antibody Rapid Negative (NEGATIVE) Plan Problems: (1) Abnormal LFTs Assessment & Plan: will obtain hepatitis panel US abdomen - Cholelithiasis; Borderline gallbladder wall thickening, could indicate early acute cholecystitis changes. Consider hepatobiliary nuclear scan if there is high clinical suspicion Negative for dilated ducts will monitor clinically for now hep panel negatie hiv neg LFTs trending up. HIDA ordered GI consult ? ERCP vs MRCP? trend labs (2) Cellulitis Assessment & Plan: chronic bilateral lower extremity wounds / ulcers acute on chronic cellulitis no abscess noted serous drainage multiple wounds that seem traumatic like cuts some small ulcers see wound photos for details -IV Abx as per ID -Keep legs elevated -apply skin protectant, hydrogel, non adherent dressings, and wrap -okay to ambulate. -venous and arterial studies ordered Garth Cornelius Mar 03, 2018 15:38
[2018-03-03] MEDS ORDERED: Tubing IV Secondary IV ONE (16:03)
[2018-03-03] MEDS ORDERED: NS 275ml ONE (16:03)
[2018-03-03] MEDS: HydrALAZINE 25mg tab ORAL SCH (17:17)
[2018-03-03] MEDS: Carvedilol 25mg Tab ORAL SCH (20:08)
[2018-03-03] MEDS: Dyna-Hex 2% Top Sol 2oz TOPIC SCH (20:08)
--- NOTE | 2018-03-03 21:33 | Diagnostic Imaging Report ---
EXAM: XR Abdomen, 2 Views CLINICAL HISTORY: TUBE PLACEMENT TECHNIQUE: Frontal view of the abdomen/pelvis COMPARISON: Chest x-ray performed earlier on the same day. FINDINGS: This exam is dated 03/03/18 at 2036 hrs. Lower thorax: Increased hazy opacities in the lungs suggestive of edema and/or infiltrate. Prominence of the cardiac silhouette. Gastrointestinal tract: Prominent air-filled loops of bowel are projected over the left upper quadrant. An obstructive process cannot be excluded. Bones/joints: Degenerative changes of the thoracolumbar spine. Tubes, lines and devices: Nasogastric tube with tip projected in the region of the fundus of the stomach. IMPRESSION: 1. Nasogastric tube with tip projected in the region of the fundus of the stomach. 2. Prominent air-filled loops of bowel are projected over the left upper quadrant. An obstructive process cannot be excluded. 3. Increased hazy opacities in the lungs suggestive of edema and/or infiltrate. 4. Prominence of the cardiac silhouette.
[2018-03-04] VITALS (36 sets, daily range): BP systolic 92–135; BP diastolic 29–89
[2018-03-04] MEDS: Morphine Sulfate 2mg/ml Inj IVP PRN ×2 (00:47→16:50)
[2018-03-04] MEDS: LORazepam Inj 2mg/ml 1ml IV PRN ×5 (02:52→23:13)
[2018-03-04 05:00] LABS: BASOPHILS % (AUTO) 0.8 % (0.0-2.0); HEMATOCRIT 51.1 % (42.0-52.0); HEMOGLOBIN 16.3 G/DL (14.2-18.0); LYMPHOCYTES % (AUTO) 13.4 % (20.0-45.0); MEAN CORPUSCULAR VOLUME 82 FL (80-99); MONOCYTES % (AUTO) 8.3 % (1.0-10.0); NEUTROPHILS % (AUTO) 77.5 % (45.0-75.0); PLATELET COUNT 198 K/UL (150-450); RED BLOOD COUNT 6.27 M/UL (4.70-6.10); RED CELL DISTRIBUTION WIDTH 18.1 % (11.6-14.8)
[2018-03-04 05:34] LABS: ALANINE AMINOTRANSFERASE 363 U/L (12-78); ALBUMIN 2.3 G/DL (3.4-5.0); ALBUMIN/GLOBULIN RATIO 0.5 (1.0-2.7); ALKALINE PHOSPHATASE 211 U/L (46-116); ANION GAP 10 mmol/L (5-15); ASPARTATE AMINO TRANSFERASE 302 U/L (15-37); BILIRUBIN,TOTAL 3.4 MG/DL (0.2-1.0); BLOOD UREA NITROGEN 53 mg/dL (7-18); CARBON DIOXIDE 28 MMOL/L (21-32); CHLORIDE 114 MMOL/L (98-107); CREATININE 1.7 MG/DL (0.55-1.30); POTASSIUM 4.6 MMOL/L (3.5-5.1); SODIUM 151 MMOL/L (136-145)
[2018-03-04 05:39] LABS: BILIRUBIN,DIRECT 1.7 MG/DL (0.0-0.3)
[2018-03-04] MEDS: HydrALAZINE 25mg tab ORAL SCH ×4 (06:07→18:55)
[2018-03-04] MEDS: NovoLOG Insulin Flexpen SUBQ SCH ×4 (06:09→21:00)
--- NOTE | 2018-03-04 08:31 | General Progress Note ---
Assessment/Plan Problem List: (1) Diabetes ICD Codes: E11.9 - Type 2 diabetes mellitus without complications SNOMED: 06091864 (2) Cellulitis ICD Codes: L03.90 - Cellulitis, unspecified SNOMED: 292886592 (3) Acute renal failure ICD Codes: N17.9 - Acute kidney failure, unspecified SNOMED: 75664141 (4) Rapid atrial fibrillation ICD Codes: I48.91 - Unspecified atrial fibrillation SNOMED: 639593296 Status: unchanged Assessment/Plan o2 pulm tx cardio f/u abx cbc bmp am Subjective Constitutional: Reports: weakness Allergies: Coded Allergies: No Known Allergies (Unverified , 02/16/18) Subjective o2nc og tube sleeping in icu Objective Last 24 Hour Vital Signs Date Time Temp Pulse Resp B/P (MAP) Pulse Ox O2 Delivery O2 Flow Rate FiO2 03/04/18 07:00 72 13 106/63 (77) 93 03/04/18 06:30 74 13 109/72 (84) 98 03/04/18 06:07 126/70 03/04/18 06:00 67 15 130/85 (100) 98 03/04/18 06:00 75 126/70 03/04/18 05:30 85 15 114/68 (83) 98 03/04/18 05:00 85 18 135/76 (95) 99 03/04/18 04:30 75 15 126/70 (88) 98 03/04/18 04:00 Nasal Cannula 4.0 03/04/18 04:00 75 03/04/18 04:00 98.2 89 14 133/81 (98) 96 03/04/18 03:30 80 17 119/75 (90) 97 03/04/18 03:00 78 15 116/63 (80) 96 03/04/18 02:30 81 15 119/72 (88) 97 03/04/18 02:00 84 18 126/76 (93) 98 03/04/18 01:30 83 17 120/73 (89) 98 03/04/18 01:00 80 16 127/75 (92) 97 03/04/18 00:30 81 22 120/89 (99) 97 03/04/18 00:00 85 03/04/18 00:00 104/77 03/04/18 00:00 98.8 76 16 124/79 (94) 95 03/04/18 00:00 Nasal Cannula 4.0 03/03/18 23:30 92 27 104/77 (86) 96 03/03/18 23:00 84 14 124/79 (94) 98 03/03/18 22:30 96 29 145/98 (114) 97 03/03/18 22:00 111 25 128/90 (103) 97 03/03/18 21:30 109 24 134/81 (98) 97 03/03/18 21:25 Nasal Cannula 2.0 28 03/03/18 21:25 98 Nasal Cannula 2.0 28 03/03/18 21:25 105 16 Nasal Cannula 2.0 28 03/03/18 21:00 100.6 115 27 143/111 (122) 97 03/03/18 20:30 118 29 140/88 (105) 96 03/03/18 20:08 139 167/99 03/03/18 20:00 101.4 135 36 163/97 (119) 93 03/03/18 20:00 Nasal Cannula 2.0 03/03/18 20:00 145 03/03/18 19:30 138 43 157/103 (121) 94 03/03/18 19:00 139 42 167/99 (121) 93 03/03/18 18:30 138 42 160/100 (120) 93 03/03/18 18:00 138 42 160/100 (120) 93 03/03/18 17:30 136 42 165/100 (121) 92 03/03/18 17:17 144/111 03/03/18 17:00 137 48 144/111 (122) 93 03/03/18 16:30 135 33 136/107 (117) 95 03/03/18 16:00 135 33 136/107 (117) 95 03/03/18 16:00 130 03/03/18 15:30 99.3 133 37 162/99 (120) 93 03/03/18 15:19 147 03/03/18 15:00 138 41 147/104 (118) 94 03/03/18 14:30 139 41 155/99 (117) 95 03/03/18 14:00 139 40 144/98 (113) 96 03/03/18 13:30 140 40 144/106 (119) 83 03/03/18 13:00 138 40 140/89 (106) 93 03/03/18 12:30 135 39 140/85 (103) 93 03/03/18 12:00 119 03/03/18 12:00 98.8 129 36 128/111 (117) 97 03/03/18 11:30 127 36 156/89 (111) 97 03/03/18 11:00 126 36 156/89 (111) 100 03/03/18 10:30 134 34 150/99 (116) 100 03/03/18 10:00 156 33 147/100 (116) 03/03/18 09:30 157 37 151/98 (115) 03/03/18 09:09 156 149/99 03/03/18 09:00 Nasal Cannula 2.0 03/03/18 09:00 156 31 149/99 (116) Intake and Output 03/03/18 03/04/18 18:59 06:59 Intake Total 320 ml 365 ml Output Total 935 ml 1650 ml Balance -615 ml -1285 ml IV Total 320 ml 365 ml Output Urine Total 935 ml 1650 ml Laboratory Tests 03/04/18 04:20: White Blood Count 11.0H, Red Blood Count 6.27H, Hemoglobin 16.3, Hematocrit 51.1 , Mean Corpuscular Volume 82, Mean Corpuscular Hemoglobin 25.9L, Mean Corpuscular Hemoglobin Concent 31.8L, Red Cell Distribution Width 18.1H, Platelet Count 198, Mean Platelet Volume 8.5, Neutrophils (%) (Auto) 77.5H, Lymphocytes (%) (Auto) 13.4L, Monocytes (%) (Auto) 8.3, Eosinophils (%) (Auto) 0.0, Basophils (%) (Auto) 0.8, Sodium Level 151H, Potassium Level 4.6, Chloride Level 114H, Carbon Dioxide Level 28, Anion Gap 10, Blood Urea Nitrogen 53H, Creatinine 1.7H, Estimat Glomerular Filtration Rate 42.1, Glucose Level 184H, Calcium Level 9.0, Total Bilirubin 3.4H, Direct Bilirubin 1.7H, Aspartate Amino Transf (AST/SGOT) 302H, Alanine Aminotransferase (ALT/SGPT) 363H, Alkaline Phosphatase 211H, Total Protein 6.5, Albumin 2.3L, Globulin 4.2, Albumin/ Globulin Ratio 0.5L Height (Feet): 6 Height (Inches): 0.00 Weight (Pounds): 270 General Appearance: lethargic EENT: normal ENT inspection Neck: normal alignment Cardiovascular: normal peripheral pulses, normal rate, regular rhythm Respiratory/Chest: chest wall non-tender, lungs clear, normal breath sounds Abdomen: normal bowel sounds, non tender, soft Extremities: normal inspection Edema: no edema noted Arm (L), no edema noted Arm (R), no edema noted Leg (L), no edema noted Leg (R), no edema noted Pedal (L), no edema noted Pedal (R), no edema noted Generalized Neurologic: motor weakness Skin: normal pigmentation, warm/dry Mick Garcia DO Mar 04, 2018 08:31
[2018-03-04] MEDS: Eliquis 2.5mg tablet ORAL SCH ×2 (08:50→18:56)
[2018-03-04] MEDS: Carvedilol 25mg Tab ORAL SCH ×2 (08:50→20:59)
[2018-03-04] MEDS: Digoxin 0.5mg/2ml Inj IVP SCH (08:55)
[2018-03-04] MEDS: Vancomycin 1.5gm/D5W 250ml 250 ML IVPB SCH (09:07)
--- NOTE | 2018-03-04 09:31 | General Progress Note ---
Assessment/Plan Problem List: (1) A-fib ICD Codes: I48.91 - Unspecified atrial fibrillation SNOMED: 22441786 (2) Diabetes ICD Codes: E11.9 - Type 2 diabetes mellitus without complications SNOMED: 62262925 (3) Abnormal LFTs ICD Codes: R94.5 - Abnormal results of liver function studies SNOMED: 834543631 (4) Rapid atrial fibrillation ICD Codes: I48.91 - Unspecified atrial fibrillation SNOMED: 305937477 (5) Drug abuse ICD Codes: F19.10 - Other psychoactive substance abuse, uncomplicated SNOMED: 09300556 Assessment/Plan us reviewed neg hepatitis panel repeat LFTS start NGTF swallow eval Subjective ROS Limited/Unobtainable: No Allergies: Coded Allergies: No Known Allergies (Unverified , 02/16/18) Objective Last 24 Hour Vital Signs Date Time Temp Pulse Resp B/P (MAP) Pulse Ox O2 Delivery O2 Flow Rate FiO2 03/04/18 08:55 85 03/04/18 08:50 80 112/65 03/04/18 07:00 72 13 106/63 (77) 93 03/04/18 06:30 74 13 109/72 (84) 98 03/04/18 06:07 126/70 03/04/18 06:00 67 15 130/85 (100) 98 03/04/18 06:00 75 126/70 03/04/18 05:30 85 15 114/68 (83) 98 03/04/18 05:00 85 18 135/76 (95) 99 03/04/18 04:30 75 15 126/70 (88) 98 03/04/18 04:00 Nasal Cannula 4.0 03/04/18 04:00 75 03/04/18 04:00 98.2 89 14 133/81 (98) 96 03/04/18 03:30 80 17 119/75 (90) 97 03/04/18 03:00 78 15 116/63 (80) 96 03/04/18 02:30 81 15 119/72 (88) 97 03/04/18 02:00 84 18 126/76 (93) 98 03/04/18 01:30 83 17 120/73 (89) 98 03/04/18 01:00 80 16 127/75 (92) 97 03/04/18 00:30 81 22 120/89 (99) 97 03/04/18 00:00 85 03/04/18 00:00 104/77 03/04/18 00:00 98.8 76 16 124/79 (94) 95 03/04/18 00:00 Nasal Cannula 4.0 03/03/18 23:30 92 27 104/77 (86) 96 03/03/18 23:00 84 14 124/79 (94) 98 03/03/18 22:30 96 29 145/98 (114) 97 03/03/18 22:00 111 25 128/90 (103) 97 03/03/18 21:30 109 24 134/81 (98) 97 03/03/18 21:25 Nasal Cannula 2.0 28 03/03/18 21:25 98 Nasal Cannula 2.0 28 03/03/18 21:25 105 16 Nasal Cannula 2.0 28 03/03/18 21:00 100.6 115 27 143/111 (122) 97 03/03/18 20:30 118 29 140/88 (105) 96 03/03/18 20:08 139 167/99 03/03/18 20:00 101.4 135 36 163/97 (119) 93 03/03/18 20:00 Nasal Cannula 2.0 03/03/18 20:00 145 03/03/18 19:30 138 43 157/103 (121) 94 03/03/18 19:00 139 42 167/99 (121) 93 03/03/18 18:30 138 42 160/100 (120) 93 03/03/18 18:00 138 42 160/100 (120) 93 03/03/18 17:30 136 42 165/100 (121) 92 03/03/18 17:17 144/111 03/03/18 17:00 137 48 144/111 (122) 93 03/03/18 16:30 135 33 136/107 (117) 95 03/03/18 16:00 135 33 136/107 (117) 95 03/03/18 16:00 130 03/03/18 15:30 99.3 133 37 162/99 (120) 93 03/03/18 15:19 147 03/03/18 15:00 138 41 147/104 (118) 94 03/03/18 14:30 139 41 155/99 (117) 95 03/03/18 14:00 139 40 144/98 (113) 96 03/03/18 13:30 140 40 144/106 (119) 83 03/03/18 13:00 138 40 140/89 (106) 93 03/03/18 12:30 135 39 140/85 (103) 93 03/03/18 12:00 119 03/03/18 12:00 98.8 129 36 128/111 (117) 97 03/03/18 11:30 127 36 156/89 (111) 97 03/03/18 11:00 126 36 156/89 (111) 100 03/03/18 10:30 134 34 150/99 (116) 100 03/03/18 10:00 156 33 147/100 (116) Intake and Output 03/03/18 03/04/18 19:00 07:00 Intake Total 325 ml 365 ml Output Total 860 ml 1775 ml Balance -535 ml -1410 ml IV Total 325 ml 365 ml Output Urine Total 860 ml 1775 ml Laboratory Tests 03/04/18 04:20: White Blood Count 11.0H, Red Blood Count 6.27H, Hemoglobin 16.3, Hematocrit 51.1 , Mean Corpuscular Volume 82, Mean Corpuscular Hemoglobin 25.9L, Mean Corpuscular Hemoglobin Concent 31.8L, Red Cell Distribution Width 18.1H, Platelet Count 198, Mean Platelet Volume 8.5, Neutrophils (%) (Auto) 77.5H, Lymphocytes (%) (Auto) 13.4L, Monocytes (%) (Auto) 8.3, Eosinophils (%) (Auto) 0.0, Basophils (%) (Auto) 0.8, Sodium Level 151H, Potassium Level 4.6, Chloride Level 114H, Carbon Dioxide Level 28, Anion Gap 10, Blood Urea Nitrogen 53H, Creatinine 1.7H, Estimat Glomerular Filtration Rate 42.1, Glucose Level 184H, Calcium Level 9.0, Total Bilirubin 3.4H, Direct Bilirubin 1.7H, Aspartate Amino Transf (AST/SGOT) 302H, Alanine Aminotransferase (ALT/SGPT) 363H, Alkaline Phosphatase 211H, Total Protein 6.5, Albumin 2.3L, Globulin 4.2, Albumin/ Globulin Ratio 0.5L 03/04/18 08:30: Vancomycin Level Trough [Pending] Height (Feet): 6 Height (Inches): 0.00 Weight (Pounds): 270 General Appearance: lethargic EENT: normal ENT inspection Neck: supple Cardiovascular: tachycardia, arrhythmia Respiratory/Chest: decreased breath sounds Abdomen: normal bowel sounds, non tender, soft Extremities: non-tender Khalif Noe MD Mar 04, 2018 09:31
--- NOTE | 2018-03-04 14:08 | General Surgery Progress Note ---
General Surgery-Progress Note Subjective Additional Comments no acute events. more comfortable. GI input appreciated. labs improved. Objective Last 24 Hour Vital Signs Date Time Temp Pulse Resp B/P (MAP) Pulse Ox O2 Delivery O2 Flow Rate FiO2 03/04/18 12:00 98.7 78 12 116/63 (80) 94 03/04/18 12:00 79 03/04/18 12:00 Nasal Cannula 4.0 03/04/18 11:47 110/59 03/04/18 11:30 83 15 110/59 (76) 91 03/04/18 11:00 78 15 104/53 (70) 92 03/04/18 10:30 75 14 117/65 (82) 92 03/04/18 09:43 Nasal Cannula 2.0 28 03/04/18 09:42 98 Nasal Cannula 2.0 28 03/04/18 09:41 102 18 Nasal Cannula 2.0 28 03/04/18 08:55 85 03/04/18 08:50 80 112/65 03/04/18 08:00 Nasal Cannula 4.0 03/04/18 08:00 77 03/04/18 07:00 72 13 106/63 (77) 93 03/04/18 06:30 74 13 109/72 (84) 98 03/04/18 06:07 126/70 03/04/18 06:00 67 15 130/85 (100) 98 03/04/18 06:00 75 126/70 03/04/18 05:30 85 15 114/68 (83) 98 03/04/18 05:00 85 18 135/76 (95) 99 03/04/18 04:30 75 15 126/70 (88) 98 03/04/18 04:00 Nasal Cannula 4.0 03/04/18 04:00 75 03/04/18 04:00 98.2 89 14 133/81 (98) 96 03/04/18 03:30 80 17 119/75 (90) 97 03/04/18 03:00 78 15 116/63 (80) 96 03/04/18 02:30 81 15 119/72 (88) 97 03/04/18 02:00 84 18 126/76 (93) 98 03/04/18 01:30 83 17 120/73 (89) 98 03/04/18 01:00 80 16 127/75 (92) 97 03/04/18 00:30 81 22 120/89 (99) 97 03/04/18 00:00 85 03/04/18 00:00 104/77 03/04/18 00:00 98.8 76 16 124/79 (94) 95 03/04/18 00:00 Nasal Cannula 4.0 03/03/18 23:30 92 27 104/77 (86) 96 03/03/18 23:00 84 14 124/79 (94) 98 03/03/18 22:30 96 29 145/98 (114) 97 03/03/18 22:00 111 25 128/90 (103) 97 03/03/18 21:30 109 24 134/81 (98) 97 03/03/18 21:25 Nasal Cannula 2.0 28 03/03/18 21:25 98 Nasal Cannula 2.0 28 03/03/18 21:25 105 16 Nasal Cannula 2.0 28 03/03/18 21:00 100.6 115 27 143/111 (122) 97 03/03/18 20:30 118 29 140/88 (105) 96 03/03/18 20:08 139 167/99 03/03/18 20:00 101.4 135 36 163/97 (119) 93 03/03/18 20:00 Nasal Cannula 2.0 03/03/18 20:00 145 03/03/18 19:30 138 43 157/103 (121) 94 03/03/18 19:00 139 42 167/99 (121) 93 03/03/18 18:30 138 42 160/100 (120) 93 03/03/18 18:00 138 42 160/100 (120) 93 03/03/18 17:30 136 42 165/100 (121) 92 03/03/18 17:17 144/111 03/03/18 17:00 137 48 144/111 (122) 93 03/03/18 16:30 135 33 136/107 (117) 95 03/03/18 16:00 135 33 136/107 (117) 95 03/03/18 16:00 130 03/03/18 15:30 99.3 133 37 162/99 (120) 93 03/03/18 15:19 147 03/03/18 15:00 138 41 147/104 (118) 94 03/03/18 14:30 139 41 155/99 (117) 95 I&O Intake and Output 03/03/18 03/04/18 19:00 07:00 Intake Total 325 ml 365 ml Output Total 860 ml 1775 ml Balance -535 ml -1410 ml IV Total 325 ml 365 ml Output Urine Total 860 ml 1775 ml Dressing: other Wound: other Drains: other Cardiovascular: RSR Respiratory: clear Abdomen: soft, flat, non-tender, present bowel sounds, other Extremities: no cyanosis, other Laboratory Tests Test 03/04/18 04:20 03/04/18 08:30 White Blood Count 11.0 K/UL (4.8-10.8) H Red Blood Count 6.27 M/UL (4.70-6.10) H Hemoglobin 16.3 G/DL (14.2-18.0) Hematocrit 51.1 % (42.0-52.0) Mean Corpuscular Volume 82 FL (80-99) Mean Corpuscular Hemoglobin 25.9 PG (27.0-31.0) L Mean Corpuscular Hemoglobin Concent 31.8 G/DL (32.0-36.0) L Red Cell Distribution Width 18.1 % (11.6-14.8) H Platelet Count 198 K/UL (150-450) Mean Platelet Volume 8.5 FL (6.5-10.1) Neutrophils (%) (Auto) 77.5 % (45.0-75.0) H Lymphocytes (%) (Auto) 13.4 % (20.0-45.0) L Monocytes (%) (Auto) 8.3 % (1.0-10.0) Eosinophils (%) (Auto) 0.0 % (0.0-3.0) Basophils (%) (Auto) 0.8 % (0.0-2.0) Sodium Level 151 MMOL/L (136-145) H Potassium Level 4.6 MMOL/L (3.5-5.1) Chloride Level 114 MMOL/L (98-107) H Carbon Dioxide Level 28 MMOL/L (21-32) Anion Gap 10 mmol/L (5-15) Blood Urea Nitrogen 53 mg/dL (7-18) H Creatinine 1.7 MG/DL (0.55-1.30) H Estimat Glomerular Filtration Rate 42.1 mL/min (>60) Glucose Level 184 MG/DL (74-106) H Calcium Level 9.0 MG/DL (8.5-10.1) Total Bilirubin 3.4 MG/DL (0.2-1.0) H Direct Bilirubin 1.7 MG/DL (0.0-0.3) H Aspartate Amino Transf (AST/SGOT) 302 U/L (15-37) H Alanine Aminotransferase (ALT/SGPT) 363 U/L (12-78) H Alkaline Phosphatase 211 U/L (46-116) H Total Protein 6.5 G/DL (6.4-8.2) Albumin 2.3 G/DL (3.4-5.0) L Globulin 4.2 g/dL Albumin/Globulin Ratio 0.5 (1.0-2.7) L Vancomycin Level Trough 23.9 ug/mL (5.0-12.0) H Plan Problems: (1) Abnormal LFTs Assessment & Plan: will obtain hepatitis panel US abdomen - Cholelithiasis; Borderline gallbladder wall thickening, could indicate early acute cholecystitis changes. Consider hepatobiliary nuclear scan if there is high clinical suspicion Negative for dilated ducts will monitor clinically for now hep panel negatie hiv neg LFTs noted HIDA ordered and pending appreciate GI input trend labs (2) Cellulitis Assessment & Plan: chronic bilateral lower extremity wounds / ulcers acute on chronic cellulitis no abscess noted serous drainage multiple wounds that seem traumatic like cuts some small ulcers see wound photos for details -IV Abx as per ID -Keep legs elevated -apply skin protectant, hydrogel, non adherent dressings, and wrap -okay to ambulate. -venous and arterial studies ordered Garth Cornelius Mar 04, 2018 14:08
[2018-03-04] MEDS ORDERED: NS 275ml ONE (14:42)
[2018-03-04] MEDS ORDERED: Tubing IV Secondary IV ONE (15:14)
[2018-03-04] MEDS: Haloperidol 5mg/ml Inj IM PRN (16:01)
--- NOTE | 2018-03-04 19:19 | Cardiology Progress Note ---
Assessment/Plan Assessment/Plan 1. Atrial fibrillation with controlled ventricular response, increase carvedilol to 25mg bid, continue digoxin and Eliquis, DC cardizem gtt. digoxin level 1.4. 2. Acute on chronic systolic and diastolic heart failure with LVEF at 25% with severe mitral regurgitation, switch to lasix po, continue afterload reduction with hydralazine. 3. ALOC. 4. Sepsis/leukocytosis. Subjective Subjective Atrial fibrillation with controlled ventricular response at rate of 85. On cardizem gtt. Objective Last 24 Hour Vital Signs Date Time Temp Pulse Resp B/P (MAP) Pulse Ox O2 Delivery O2 Flow Rate FiO2 03/04/18 19:00 89 17 99/56 (70) 94 03/04/18 18:55 114/80 03/04/18 18:00 92 26 126/73 (90) 94 03/04/18 17:30 86 13 132/63 (86) 100 03/04/18 17:00 90 22 124/63 (83) 100 03/04/18 16:30 90 22 113/85 (94) 100 03/04/18 16:00 98.7 88 22 120/62 (81) 100 03/04/18 16:00 87 03/04/18 16:00 Venturi Mask 10.0 03/04/18 15:30 83 17 106/62 (77) 89 03/04/18 15:00 71 17 113/58 (76) 85 03/04/18 14:30 85 17 125/62 (83) 92 03/04/18 14:00 70 17 102/58 (73) 98 03/04/18 13:30 71 19 102/59 (73) 96 03/04/18 13:00 71 20 96/29 (51) 97 03/04/18 12:30 72 21 103/49 (67) 96 03/04/18 12:00 98.7 78 12 116/63 (80) 94 03/04/18 12:00 79 03/04/18 12:00 Nasal Cannula 4.0 03/04/18 11:47 110/59 03/04/18 11:30 83 15 110/59 (76) 91 03/04/18 11:00 78 15 104/53 (70) 92 03/04/18 10:30 75 14 117/65 (82) 92 03/04/18 09:43 Nasal Cannula 2.0 28 03/04/18 09:42 98 Nasal Cannula 2.0 28 03/04/18 09:41 102 18 Nasal Cannula 2.0 28 03/04/18 08:55 85 03/04/18 08:50 80 112/65 03/04/18 08:00 Nasal Cannula 4.0 03/04/18 08:00 77 03/04/18 07:00 72 13 106/63 (77) 93 03/04/18 06:30 74 13 109/72 (84) 98 03/04/18 06:07 126/70 03/04/18 06:00 67 15 130/85 (100) 98 03/04/18 06:00 75 126/70 03/04/18 05:30 85 15 114/68 (83) 98 03/04/18 05:00 85 18 135/76 (95) 99 03/04/18 04:30 75 15 126/70 (88) 98 03/04/18 04:00 Nasal Cannula 4.0 03/04/18 04:00 75 03/04/18 04:00 98.2 89 14 133/81 (98) 96 03/04/18 03:30 80 17 119/75 (90) 97 03/04/18 03:00 78 15 116/63 (80) 96 03/04/18 02:30 81 15 119/72 (88) 97 03/04/18 02:00 84 18 126/76 (93) 98 03/04/18 01:30 83 17 120/73 (89) 98 03/04/18 01:00 80 16 127/75 (92) 97 03/04/18 00:30 81 22 120/89 (99) 97 03/04/18 00:00 85 03/04/18 00:00 104/77 03/04/18 00:00 98.8 76 16 124/79 (94) 95 03/04/18 00:00 Nasal Cannula 4.0 03/03/18 23:30 92 27 104/77 (86) 96 03/03/18 23:00 84 14 124/79 (94) 98 03/03/18 22:30 96 29 145/98 (114) 97 03/03/18 22:00 111 25 128/90 (103) 97 03/03/18 21:30 109 24 134/81 (98) 97 03/03/18 21:25 Nasal Cannula 2.0 28 03/03/18 21:25 98 Nasal Cannula 2.0 28 03/03/18 21:25 105 16 Nasal Cannula 2.0 28 03/03/18 21:00 100.6 115 27 143/111 (122) 97 03/03/18 20:30 118 29 140/88 (105) 96 03/03/18 20:08 139 167/99 03/03/18 20:00 101.4 135 36 163/97 (119) 93 03/03/18 20:00 Nasal Cannula 2.0 03/03/18 20:00 145 03/03/18 19:30 138 43 157/103 (121) 94 Intake and Output 03/03/18 03/04/18 18:59 06:59 Intake Total 320 ml 365 ml Output Total 935 ml 1650 ml Balance -615 ml -1285 ml IV Total 320 ml 365 ml Output Urine Total 935 ml 1650 ml 2D Echo: LVEF 25%, Bi-atrial enlargement, Severe MR, RVSP 24 mmHg, RAP 15 mmHg Laboratory Tests Test 03/04/18 04:20 03/04/18 08:30 White Blood Count 11.0 K/UL (4.8-10.8) H Red Blood Count 6.27 M/UL (4.70-6.10) H Hemoglobin 16.3 G/DL (14.2-18.0) Hematocrit 51.1 % (42.0-52.0) Mean Corpuscular Volume 82 FL (80-99) Mean Corpuscular Hemoglobin 25.9 PG (27.0-31.0) L Mean Corpuscular Hemoglobin Concent 31.8 G/DL (32.0-36.0) L Red Cell Distribution Width 18.1 % (11.6-14.8) H Platelet Count 198 K/UL (150-450) Mean Platelet Volume 8.5 FL (6.5-10.1) Neutrophils (%) (Auto) 77.5 % (45.0-75.0) H Lymphocytes (%) (Auto) 13.4 % (20.0-45.0) L Monocytes (%) (Auto) 8.3 % (1.0-10.0) Eosinophils (%) (Auto) 0.0 % (0.0-3.0) Basophils (%) (Auto) 0.8 % (0.0-2.0) Sodium Level 151 MMOL/L (136-145) H Potassium Level 4.6 MMOL/L (3.5-5.1) Chloride Level 114 MMOL/L (98-107) H Carbon Dioxide Level 28 MMOL/L (21-32) Anion Gap 10 mmol/L (5-15) Blood Urea Nitrogen 53 mg/dL (7-18) H Creatinine 1.7 MG/DL (0.55-1.30) H Estimat Glomerular Filtration Rate 42.1 mL/min (>60) Glucose Level 184 MG/DL (74-106) H Calcium Level 9.0 MG/DL (8.5-10.1) Total Bilirubin 3.4 MG/DL (0.2-1.0) H Direct Bilirubin 1.7 MG/DL (0.0-0.3) H Aspartate Amino Transf (AST/SGOT) 302 U/L (15-37) H Alanine Aminotransferase (ALT/SGPT) 363 U/L (12-78) H Alkaline Phosphatase 211 U/L (46-116) H Total Protein 6.5 G/DL (6.4-8.2) Albumin 2.3 G/DL (3.4-5.0) L Globulin 4.2 g/dL Albumin/Globulin Ratio 0.5 (1.0-2.7) L Vancomycin Level Trough 23.9 ug/mL (5.0-12.0) H Objective HEENT: Atraumatic and normocephalic. Anicteric. Pupils are equal, round, and reactive to light and accommodation. Extraocular muscles intact. Altered. NECK: JVP elevated about 5cm. No carotid bruits. Carotid upstrokes 2+ bilaterally. CARDIOVASCULAR: Normal S1, S2. Irregularly irregular rhythm. 2/6 Holosystolic murmur, gallop, or rub. LUNGS: Diminished BS both lungs. ABDOMEN: Soft, nontender, and nondistended. No hepatosplenomegaly. Positive bowel sounds. EXTREMITIES: There is 1+ bilateral lower extremity edema with ulcerations. Sudarshan Stuart MD Mar 04, 2018 19:19
[2018-03-04] MEDS: Dyna-Hex 2% Top Sol 2oz TOPIC SCH (19:51)
[2018-03-05] VITALS (14 sets, daily range): BP systolic 99–144; BP diastolic 65–94
[2018-03-05] MEDS: HydrALAZINE 25mg tab ORAL SCH ×4 (00:11→23:14)
[2018-03-05 05:30] LABS: BASOPHILS % (AUTO) 0.6 % (0.0-2.0); EOSINOPHILS % (AUTO) 0.4 % (0.0-3.0); HEMATOCRIT 48.4 % (42.0-52.0); HEMOGLOBIN 15.4 G/DL (14.2-18.0); MEAN CORPUSCULAR VOLUME 81 FL (80-99); MONOCYTES % (AUTO) 7.7 % (1.0-10.0); NEUTROPHILS % (AUTO) 82.4 % (45.0-75.0); PLATELET COUNT 229 K/UL (150-450); RED BLOOD COUNT 5.94 M/UL (4.70-6.10); RED CELL DISTRIBUTION WIDTH 17.7 % (11.6-14.8); WHITE BLOOD COUNT 8.7 K/UL (4.8-10.8)
[2018-03-05] MEDS: NovoLOG Insulin Flexpen SUBQ SCH ×4 (05:44→20:50)
[2018-03-05 06:05] LABS: ALANINE AMINOTRANSFERASE 354 U/L (12-78); ALBUMIN 2.1 G/DL (3.4-5.0); ALBUMIN/GLOBULIN RATIO 0.5 (1.0-2.7); ALKALINE PHOSPHATASE 196 U/L (46-116); ANION GAP 10 mmol/L (5-15); ASPARTATE AMINO TRANSFERASE 249 U/L (15-37); BILIRUBIN,TOTAL 2.7 MG/DL (0.2-1.0); BLOOD UREA NITROGEN 45 mg/dL (7-18); CALCIUM 8.3 MG/DL (8.5-10.1); CARBON DIOXIDE 28 MMOL/L (21-32); CHLORIDE 114 MMOL/L (98-107); CREATININE 1.4 MG/DL (0.55-1.30); POTASSIUM 3.6 MMOL/L (3.5-5.1); SODIUM 152 MMOL/L (136-145)
[2018-03-05 06:08] LABS: BILIRUBIN,DIRECT 1.3 MG/DL (0.0-0.3)
[2018-03-05] MEDS ORDERED: Albuterol/Ipratropium 3ml neb HHN PRN (07:00)
[2018-03-05] MEDS ORDERED: Nitroglycerin Subl 0.4mg tab SL PRN ×2 (07:15→18:21)
[2018-03-05] MEDS ORDERED: Morphine Sulfate 2mg/ml Inj IVP PRN ×2 (07:30→18:21)
[2018-03-05] MEDS ORDERED: Miralax 17gm pkt ORAL PRN ×2 (07:30→18:21)
[2018-03-05] MEDS ORDERED: Metoprolol 5mg/5ml Inj IVP PRN ×2 (07:30→18:20)
[2018-03-05] MEDS ORDERED: LORazepam Inj 2mg/ml 1ml IV PRN (07:30)
[2018-03-05] MEDS ORDERED: Haloperidol 5mg/ml Inj IM PRN ×2 (07:30→18:20)
[2018-03-05] MEDS ORDERED: Carvedilol 25mg Tab ORAL SCH (09:00)
[2018-03-05] MEDS ORDERED: Eliquis 2.5mg tablet ORAL SCH (09:00)
[2018-03-05] MEDS ORDERED: Furosemide 40mg tab ORAL SCH ×2 (09:00)
[2018-03-05] MEDS ORDERED: Digoxin 0.5mg/2ml Inj IVP SCH (09:00)
--- NOTE | 2018-03-05 10:37 | GI Progress Note ---
Assessment/Plan Problems: (1) Dysphagia ICD Codes: R13.10 - Dysphagia, unspecified SNOMED: 72626560, 815305212 (2) Drug abuse ICD Codes: F19.10 - Other psychoactive substance abuse, uncomplicated SNOMED: 50821582 Status: unchanged Status Narrative Discussed with Dr. Noe. Assessment/Plan us reviewed >> Cholelithiasis. Borderline gallbladder wall thickening, could indicate early acute cholecystitis changes. neg hepatitis panel repeat LFTS start NGTF swallow eval, PEG if necessary patient down for HIDA today prn transfusions ppi fu labs The patient was seen and examined at bedside and all new and available data was reviewed in the patients chart. I agree with the above findings, impression and plan. (Patient seen earlier today. Signature stamp does not reflect patient encounter time.). - Khalif Noe MD Subjective Subjective limited Objective Last 24 Hour Vital Signs Date Time Temp Pulse Resp B/P (MAP) Pulse Ox O2 Delivery O2 Flow Rate FiO2 03/05/18 08:00 Venturi Mask 10.0 03/05/18 08:00 98.4 90 26 129/71 (90) 97 03/05/18 07:37 101 03/05/18 06:15 98.3 109 21 133/89 (104) 97 03/05/18 05:41 111/57 03/05/18 05:00 101 16 99/65 (76) 96 03/05/18 04:00 Venturi Mask 10.0 03/05/18 04:00 99.0 109 24 135/94 (108) 96 03/05/18 04:00 109 03/05/18 03:00 111 26 135/94 (108) 98 03/05/18 02:00 106 26 133/89 (104) 97 03/05/18 01:00 100 26 135/76 (95) 97 03/05/18 00:11 126/75 03/05/18 00:00 Venturi Mask 10.0 03/05/18 00:00 98.0 97 26 122/79 (93) 97 03/05/18 00:00 84 03/04/18 23:00 92 26 123/81 (95) 97 03/04/18 22:00 89 26 104/67 (79) 97 03/04/18 21:00 87 17 105/51 (69) 96 03/04/18 20:59 91 115/65 03/04/18 20:00 Venturi Mask 10.0 03/04/18 20:00 82 03/04/18 20:00 98.5 89 17 92/57 (69) 94 03/04/18 19:09 Nasal Cannula 2.0 28 03/04/18 19:09 91 18 Nasal Cannula 2.0 28 03/04/18 19:09 98 Nasal Cannula 2.0 28 03/04/18 19:00 89 17 99/56 (70) 94 03/04/18 18:55 114/80 03/04/18 18:00 92 26 126/73 (90) 94 03/04/18 17:30 86 13 132/63 (86) 100 03/04/18 17:00 90 22 124/63 (83) 100 03/04/18 16:30 90 22 113/85 (94) 100 03/04/18 16:00 98.7 88 22 120/62 (81) 100 03/04/18 16:00 87 03/04/18 16:00 Venturi Mask 10.0 03/04/18 15:30 83 17 106/62 (77) 89 03/04/18 15:00 71 17 113/58 (76) 85 03/04/18 14:30 85 17 125/62 (83) 92 03/04/18 14:00 70 17 102/58 (73) 98 03/04/18 13:30 71 19 102/59 (73) 96 03/04/18 13:00 71 20 96/29 (51) 97 03/04/18 12:30 72 21 103/49 (67) 96 03/04/18 12:00 98.7 78 12 116/63 (80) 94 03/04/18 12:00 79 03/04/18 12:00 Nasal Cannula 4.0 03/04/18 11:47 110/59 03/04/18 11:30 83 15 110/59 (76) 91 03/04/18 11:00 78 15 104/53 (70) 92 Intake and Output 03/04/18 03/05/18 19:00 07:00 Intake Total 310 ml 290 ml Output Total 2180 ml 750 ml Balance -1870 ml -460 ml Free Water 210 ml IV Total 40 ml Tube Feeding 60 ml 240 ml Other 50 ml Output Urine Total 2180 ml 750 ml Laboratory Tests Test 03/05/18 04:30 White Blood Count 8.7 K/UL (4.8-10.8) Red Blood Count 5.94 M/UL (4.70-6.10) Hemoglobin 15.4 G/DL (14.2-18.0) Hematocrit 48.4 % (42.0-52.0) Mean Corpuscular Volume 81 FL (80-99) Mean Corpuscular Hemoglobin 26.0 PG (27.0-31.0) L Mean Corpuscular Hemoglobin Concent 31.9 G/DL (32.0-36.0) L Red Cell Distribution Width 17.7 % (11.6-14.8) H Platelet Count 229 K/UL (150-450) Mean Platelet Volume 8.5 FL (6.5-10.1) Neutrophils (%) (Auto) 82.4 % (45.0-75.0) H Lymphocytes (%) (Auto) 9.0 % (20.0-45.0) L Monocytes (%) (Auto) 7.7 % (1.0-10.0) Eosinophils (%) (Auto) 0.4 % (0.0-3.0) Basophils (%) (Auto) 0.6 % (0.0-2.0) Sodium Level 152 MMOL/L (136-145) H Potassium Level 3.6 MMOL/L (3.5-5.1) Chloride Level 114 MMOL/L (98-107) H Carbon Dioxide Level 28 MMOL/L (21-32) Anion Gap 10 mmol/L (5-15) Blood Urea Nitrogen 45 mg/dL (7-18) H Creatinine 1.4 MG/DL (0.55-1.30) H Estimat Glomerular Filtration Rate 52.6 mL/min (>60) Glucose Level 208 MG/DL (74-106) H Calcium Level 8.3 MG/DL (8.5-10.1) L Total Bilirubin 2.7 MG/DL (0.2-1.0) H Direct Bilirubin 1.3 MG/DL (0.0-0.3) H Aspartate Amino Transf (AST/SGOT) 249 U/L (15-37) H Alanine Aminotransferase (ALT/SGPT) 354 U/L (12-78) H Alkaline Phosphatase 196 U/L (46-116) H Pro-B-Type Natriuretic Peptide 4982 pg/mL (0-125) H Total Protein 6.2 G/DL (6.4-8.2) L Albumin 2.1 G/DL (3.4-5.0) L Globulin 4.1 g/dL Albumin/Globulin Ratio 0.5 (1.0-2.7) L Height (Feet): 6 Height (Inches): 0.00 Weight (Pounds): 270 General Appearance: WD/WN, no apparent distress, alert Cardiovascular: normal rate Respiratory/Chest: normal breath sounds, no respiratory distress Abdominal Exam: normal bowel sounds, non tender, soft Extremities: normal range of motion, non-tender Efraín Hernandez NP Mar 05, 2018 10:37
[2018-03-05] MEDS ORDERED: VANCOMYCIN IVPB SCH (11:00)
[2018-03-05] MEDS ORDERED: D5W IVPB SCH (11:00)
[2018-03-05] MEDS ORDERED: Vancomycin 1gm/D5W 275ml IVPB SCH ×2 (11:00)
[2018-03-05] MEDS ORDERED: Vancomycin 1750mg/D5W 300ml IVPB SCH ×2 (11:00)
[2018-03-05] MEDS ORDERED: HydrALAZINE 25mg tab ORAL SCH (12:00)
--- NOTE | 2018-03-05 12:04 | Diagnostic Imaging Report ---
Indication: Dyspnea Technique: One view of the chest Comparison: 03/03/2018 Findings: Interim placement of a nasogastric tube, tip of which is difficult to visualize but appears to be in the gastric fundus in satisfactory position. There is marked opacification of the right hemithorax, with only small amount of aerated lung. This most likely due to significant amount of atelectasis, as the mediastinum appears slightly shifted to the right, but there is also suggestion of new and rapidly enlarging pleural effusion. Interstitial congestion persists. Impression: Marked right lung volume loss, with only a minimal residual aerated lung. Suspect due to combination of enlarging pleural fluid and extensive atelectatic change. Cardiomegaly Persistent interstitial congestion Satisfactory nasogastric intubation Dr. Mick Garcia notified at the time of interpretation
--- NOTE | 2018-03-05 12:29 | Pulmonolgy Critical Care Note ---
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 Discussed with: nurses, consultants, case resolution specialistgame manager - Objective Last 24 Hour Vital Signs Date Time Temp Pulse Resp B/P (MAP) Pulse Ox O2 Delivery O2 Flow Rate FiO2 03/05/18 08:00 Venturi Mask 10.0 03/05/18 08:00 98.4 90 26 129/71 (90) 97 03/05/18 07:37 101 03/05/18 06:15 98.3 109 21 133/89 (104) 97 03/05/18 05:41 111/57 03/05/18 05:00 101 16 99/65 (76) 96 03/05/18 04:00 Venturi Mask 10.0 03/05/18 04:00 99.0 109 24 135/94 (108) 96 03/05/18 04:00 109 03/05/18 03:00 111 26 135/94 (108) 98 03/05/18 02:00 106 26 133/89 (104) 97 03/05/18 01:00 100 26 135/76 (95) 97 03/05/18 00:11 126/75 03/05/18 00:00 Venturi Mask 10.0 03/05/18 00:00 98.0 97 26 122/79 (93) 97 03/05/18 00:00 84 03/04/18 23:00 92 26 123/81 (95) 97 03/04/18 22:00 89 26 104/67 (79) 97 03/04/18 21:00 87 17 105/51 (69) 96 03/04/18 20:59 91 115/65 03/04/18 20:00 Venturi Mask 10.0 03/04/18 20:00 82 03/04/18 20:00 98.5 89 17 92/57 (69) 94 03/04/18 19:09 Nasal Cannula 2.0 28 03/04/18 19:09 91 18 Nasal Cannula 2.0 28 03/04/18 19:09 98 Nasal Cannula 2.0 28 03/04/18 19:00 89 17 99/56 (70) 94 03/04/18 18:55 114/80 03/04/18 18:00 92 26 126/73 (90) 94 03/04/18 17:30 86 13 132/63 (86) 100 03/04/18 17:00 90 22 124/63 (83) 100 03/04/18 16:30 90 22 113/85 (94) 100 03/04/18 16:00 98.7 88 22 120/62 (81) 100 03/04/18 16:00 87 03/04/18 16:00 Venturi Mask 10.0 03/04/18 15:30 83 17 106/62 (77) 89 03/04/18 15:00 71 17 113/58 (76) 85 03/04/18 14:30 85 17 125/62 (83) 92 03/04/18 14:00 70 17 102/58 (73) 98 03/04/18 13:30 71 19 102/59 (73) 96 03/04/18 13:00 71 20 96/29 (51) 97 03/04/18 12:30 72 21 103/49 (67) 96 Status: somnolent Condition: critical HEENT: atraumatic Heart: HR/BP stable, HR/BP unstable Abdomen: soft, feeding tube Extremities: edema Decubiti: location Accucheck: 199 Critical Care - Subjective ROS Limited/Unobtainable: Yes Condition: critical EKG Rhythm: Atrial Fibrillation FI02: 28 Sputum Amount: None Tube Feeding Amount: 30 I&O: Intake and Output 03/04/18 03/05/18 19:00 07:00 Intake Total 310 ml 290 ml Output Total 2180 ml 750 ml Balance -1870 ml -460 ml Free Water 210 ml IV Total 40 ml Tube Feeding 60 ml 240 ml Other 50 ml Output Urine Total 2180 ml 750 ml CXR: right lung opacification Labs: Laboratory Tests Test 03/05/18 04:30 White Blood Count 8.7 K/UL (4.8-10.8) Red Blood Count 5.94 M/UL (4.70-6.10) Hemoglobin 15.4 G/DL (14.2-18.0) Hematocrit 48.4 % (42.0-52.0) Mean Corpuscular Volume 81 FL (80-99) Mean Corpuscular Hemoglobin 26.0 PG (27.0-31.0) L Mean Corpuscular Hemoglobin Concent 31.9 G/DL (32.0-36.0) L Red Cell Distribution Width 17.7 % (11.6-14.8) H Platelet Count 229 K/UL (150-450) Mean Platelet Volume 8.5 FL (6.5-10.1) Neutrophils (%) (Auto) 82.4 % (45.0-75.0) H Lymphocytes (%) (Auto) 9.0 % (20.0-45.0) L Monocytes (%) (Auto) 7.7 % (1.0-10.0) Eosinophils (%) (Auto) 0.4 % (0.0-3.0) Basophils (%) (Auto) 0.6 % (0.0-2.0) Sodium Level 152 MMOL/L (136-145) H Potassium Level 3.6 MMOL/L (3.5-5.1) Chloride Level 114 MMOL/L (98-107) H Carbon Dioxide Level 28 MMOL/L (21-32) Anion Gap 10 mmol/L (5-15) Blood Urea Nitrogen 45 mg/dL (7-18) H Creatinine 1.4 MG/DL (0.55-1.30) H Estimat Glomerular Filtration Rate 52.6 mL/min (>60) Glucose Level 208 MG/DL (74-106) H Calcium Level 8.3 MG/DL (8.5-10.1) L Total Bilirubin 2.7 MG/DL (0.2-1.0) H Direct Bilirubin 1.3 MG/DL (0.0-0.3) H Aspartate Amino Transf (AST/SGOT) 249 U/L (15-37) H Alanine Aminotransferase (ALT/SGPT) 354 U/L (12-78) H Alkaline Phosphatase 196 U/L (46-116) H Pro-B-Type Natriuretic Peptide 4982 pg/mL (0-125) H Total Protein 6.2 G/DL (6.4-8.2) L Albumin 2.1 G/DL (3.4-5.0) L Globulin 4.1 g/dL Albumin/Globulin Ratio 0.5 (1.0-2.7) L Sunita Sahni MD Mar 05, 2018 12:29
--- NOTE | 2018-03-05 13:01 | Infectious Diseases Prog Note ---
Assessment/Plan Assessment/Plan Assessment: B/l LE purulent cellulitis- legs with scratches (self inflicted) -wound cx MRSA -L foot tibia/fibula xray: No acute process -R foot tibia/fibula xray: No acute bony trauma Fever, improving Mild leukocytosis, SP Afib w/ RVR ElevatedLFTs, improving - r/o acute cholecystitis -Abd US: Cholelithiasis. Borderline gallbladder wall thickening, could indicate early acute cholecystitis changes. Consider hepatobiliary nuclear scan if there is high clinical suspicion. Negative for dilated ducts Incidental finding bilateral pleural effusions -acute hep panel, HIV sc neg DM2 HTN CHF Schizoaffective disorder Plan: -Continue IV Vancomycin #6 and start empiric Ceftriaxone for probable acute cholecystitis pending HIDA sacn -03/03 SP Ancef #2 -03/01 SP Cefepime #2 -f/u HIDA scan -f/u cx -Monitor CBC/CMP, temperatures -wound care -Sx, GI f/u Thank you for this consultation. Will continue to follow along with you. Discussed with RN. Subjective Allergies: Coded Allergies: No Known Allergies (Unverified , 02/16/18) Subjective transferred out ICU to telemetry 03/03 Tm 101.4, now afebrile in 36hrs leukocytosi resolved LFTs improving HIDA scan done today, results pending Objective Vital Signs Last 24 Hour Vital Signs Date Time Temp Pulse Resp B/P (MAP) Pulse Ox O2 Delivery O2 Flow Rate FiO2 03/05/18 08:00 Venturi Mask 10.0 03/05/18 08:00 98.4 90 26 129/71 (90) 97 03/05/18 07:37 101 03/05/18 06:15 98.3 109 21 133/89 (104) 97 03/05/18 05:41 111/57 03/05/18 05:00 101 16 99/65 (76) 96 03/05/18 04:00 Venturi Mask 10.0 03/05/18 04:00 99.0 109 24 135/94 (108) 96 03/05/18 04:00 109 03/05/18 03:00 111 26 135/94 (108) 98 03/05/18 02:00 106 26 133/89 (104) 97 03/05/18 01:00 100 26 135/76 (95) 97 03/05/18 00:11 126/75 03/05/18 00:00 Venturi Mask 10.0 03/05/18 00:00 98.0 97 26 122/79 (93) 97 03/05/18 00:00 84 03/04/18 23:00 92 26 123/81 (95) 97 03/04/18 22:00 89 26 104/67 (79) 97 03/04/18 21:00 87 17 105/51 (69) 96 03/04/18 20:59 91 115/65 03/04/18 20:00 Venturi Mask 10.0 03/04/18 20:00 82 03/04/18 20:00 98.5 89 17 92/57 (69) 94 03/04/18 19:09 Nasal Cannula 2.0 28 03/04/18 19:09 91 18 Nasal Cannula 2.0 28 03/04/18 19:09 98 Nasal Cannula 2.0 28 03/04/18 19:00 89 17 99/56 (70) 94 03/04/18 18:55 114/80 03/04/18 18:00 92 26 126/73 (90) 94 03/04/18 17:30 86 13 132/63 (86) 100 03/04/18 17:00 90 22 124/63 (83) 100 03/04/18 16:30 90 22 113/85 (94) 100 03/04/18 16:00 98.7 88 22 120/62 (81) 100 03/04/18 16:00 87 03/04/18 16:00 Venturi Mask 10.0 03/04/18 15:30 83 17 106/62 (77) 89 18 15:00 71 17 113/58 (76) 85 03/04/18 14:30 85 17 125/62 (83) 92 03/04/18 14:00 70 17 102/58 (73) 98 18 13:30 71 19 102/59 (73) 96 03/04/18 13:00 71 20 96/29 (51) 97 Height (Feet): 6 Height (Inches): 0.00 Weight (Pounds): 270 Objective General Appearance: WD/WN Lines, tubes and drains: peripheral HEENT: normocephalic, atraumatic Neck: non-tender, normal alignment Respiratory/Chest: chest wall non-tender, lungs clear Breasts: no masses Cardiovascular/Chest: normal peripheral pulses Abdomen: normal bowel sounds, non tender Extremities: B/l leg erythema, swelling, with scratches and some minimal drainage Laboratory Tests Test 03/05/18 04:30 White Blood Count 8.7 K/UL (4.8-10.8) Red Blood Count 5.94 M/UL (4.70-6.10) Hemoglobin 15.4 G/DL (14.2-18.0) Hematocrit 48.4 % (42.0-52.0) Mean Corpuscular Volume 81 FL (80-99) Mean Corpuscular Hemoglobin 26.0 PG (27.0-31.0) L Mean Corpuscular Hemoglobin Concent 31.9 G/DL (32.0-36.0) L Red Cell Distribution Width 17.7 % (11.6-14.8) H Platelet Count 229 K/UL (150-450) Mean Platelet Volume 8.5 FL (6.5-10.1) Neutrophils (%) (Auto) 82.4 % (45.0-75.0) H Lymphocytes (%) (Auto) 9.0 % (20.0-45.0) L Monocytes (%) (Auto) 7.7 % (1.0-10.0) Eosinophils (%) (Auto) 0.4 % (0.0-3.0) Basophils (%) (Auto) 0.6 % (0.0-2.0) Sodium Level 152 MMOL/L (136-145) H Potassium Level 3.6 MMOL/L (3.5-5.1) Chloride Level 114 MMOL/L (98-107) H Carbon Dioxide Level 28 MMOL/L (21-32) Anion Gap 10 mmol/L (5-15) Blood Urea Nitrogen 45 mg/dL (7-18) H Creatinine 1.4 MG/DL (0.55-1.30) H Estimat Glomerular Filtration Rate 52.6 mL/min (>60) Glucose Level 208 MG/DL (74-106) H Calcium Level 8.3 MG/DL (8.5-10.1) L Total Bilirubin 2.7 MG/DL (0.2-1.0) H Direct Bilirubin 1.3 MG/DL (0.0-0.3) H Aspartate Amino Transf (AST/SGOT) 249 U/L (15-37) H Alanine Aminotransferase (ALT/SGPT) 354 U/L (12-78) H Alkaline Phosphatase 196 U/L (46-116) H Pro-B-Type Natriuretic Peptide 4982 pg/mL (0-125) H Total Protein 6.2 G/DL (6.4-8.2) L Albumin 2.1 G/DL (3.4-5.0) L Globulin 4.1 g/dL Albumin/Globulin Ratio 0.5 (1.0-2.7) L Current Medications Medications (Trade) Dose Ordered Sig/Roseline Route PRN Reason Start Time Stop Time Status Last Admin Dose Admin Acetaminophen (Tylenol) 650 mg Q4H PRN ORAL fever (temp>100.5F) 03/05/18 07:00 03/30/18 06:59 Apixaban (Eliquis) 5 mg BID ORAL 03/05/18 09:00 03/31/18 17:59 Carvedilol (Coreg) 25 mg EVERY 12 HOURS ORAL 03/05/18 09:00 04/02/18 20:59 Chlorhexidine Gluconate (Ashley-Hex 2%) 1 applic DAILY@1999 TOPIC 03/05/18 20:00 04/01/18 19:59 Dextrose (Dextrose 50%) 25 ml Q30M PRN IV Hypoglycemia 03/05/18 07:30 03/30/18 13:59 Dextrose (Dextrose 50%) 50 ml Q30M PRN IV Hypoglycemia 03/05/18 07:30 03/30/18 13:59 Digoxin (Lanoxin) 0.125 mg DAILY IVP 03/05/18 09:00 04/02/18 14:21 Furosemide (Lasix) 40 mg DAILY ORAL 03/05/18 09:00 04/04/18 08:59 Haloperidol Lactate (Haldol) 5 mg Q4H PRN IM Agitation 03/05/18 07:30 03/31/18 07:29 03/05/18 12:40 Hydralazine HCl (Apresoline) 25 mg Q6HR ORAL 03/05/18 12:00 04/02/18 17:59 Insulin Aspart (NovoLOG) BEFORE MEALS AND HS SUBQ 03/05/18 11:30 03/31/18 16:29 Lorazepam (Ativan 2mg/ml 1ml) 1 mg Q4H PRN IV For Anxiety 03/05/18 07:30 03/08/18 07:29 Metoprolol Tartrate (Lopressor) 10 mg Q1H PRN IVP Heart rate >120 per minute 03/05/18 07:30 03/31/18 02:29 Morphine Sulfate (Morphine Sulfate) 2 mg Q4H PRN IVP Moderate Pain (Pain Scale 4-6) 03/05/18 07:30 03/07/18 07:29 03/05/18 10:51 Nitroglycerin (Ntg) 0.4 mg Q5M PRN SL Prn Chest Pain 03/05/18 07:15 03/30/18 21:44 Ondansetron HCl (Zofran) 4 mg Q6H PRN IVP Nausea & Vomiting 03/05/18 07:30 03/30/18 07:29 Polyethylene Glycol (Miralax) 17 gm DAILYPRN PRN ORAL Constipation 03/05/18 07:30 04/01/18 07:29 Temazepam (Restoril) 15 mg HSPRN PRN ORAL Insomnia 03/05/18 19:00 03/09/18 18:59 Vancomycin HCl (Vanco rx to dose) 1 ea DAILY PRN MISC rx protocol 03/05/18 09:00 04/01/18 13:59 Vancomycin HCl 1 gm/Dextrose 275 ml @ 183.708 mls/hr Q12H IVPB 03/05/18 11:00 03/10/18 10:59 03/05/18 12:07 Susan Dennis M.D. Mar 05, 2018 13:01
[2018-03-05] MEDS ORDERED: dilTIAZem HCl 30mg tab ORAL SCH ×2 (13:30→18:00)
--- NOTE | 2018-03-05 13:32 | General Progress Note ---
Assessment/Plan Problem List: (1) Diabetes ICD Codes: E11.9 - Type 2 diabetes mellitus without complications SNOMED: 94386056 (2) Cellulitis ICD Codes: L03.90 - Cellulitis, unspecified SNOMED: 900831848 (3) Acute renal failure ICD Codes: N17.9 - Acute kidney failure, unspecified SNOMED: 27550946 (4) Rapid atrial fibrillation ICD Codes: I48.91 - Unspecified atrial fibrillation SNOMED: 382124330 Status: unchanged Assessment/Plan o2 pulm tx cardio f/u abx cbc bmp am back to icu Subjective Constitutional: Reports: weakness Allergies: Coded Allergies: No Known Allergies (Unverified , 02/16/18) All Systems: reviewed and negative except above Subjective og tube sleeping Objective Last 24 Hour Vital Signs Date Time Temp Pulse Resp B/P (MAP) Pulse Ox O2 Delivery O2 Flow Rate FiO2 03/05/18 08:00 Venturi Mask 10.0 03/05/18 08:00 98.4 90 26 129/71 (90) 97 03/05/18 07:37 101 03/05/18 06:15 98.3 109 21 133/89 (104) 97 03/05/18 05:41 111/57 03/05/18 05:00 101 16 99/65 (76) 96 03/05/18 04:00 Venturi Mask 10.0 03/05/18 04:00 99.0 109 24 135/94 (108) 96 03/05/18 04:00 109 03/05/18 03:00 111 26 135/94 (108) 98 03/05/18 02:00 106 26 133/89 (104) 97 03/05/18 01:00 100 26 135/76 (95) 97 03/05/18 00:11 126/75 03/05/18 00:00 Venturi Mask 10.0 03/05/18 00:00 98.0 97 26 122/79 (93) 97 03/05/18 00:00 84 03/04/18 23:00 92 26 123/81 (95) 97 03/04/18 22:00 89 26 104/67 (79) 97 03/04/18 21:00 87 17 105/51 (69) 96 03/04/18 20:59 91 115/65 03/04/18 20:00 Venturi Mask 10.0 03/04/18 20:00 82 03/04/18 20:00 98.5 89 17 92/57 (69) 94 03/04/18 19:09 Nasal Cannula 2.0 28 03/04/18 19:09 91 18 Nasal Cannula 2.0 28 03/04/18 19:09 98 Nasal Cannula 2.0 28 03/04/18 19:00 89 17 99/56 (70) 94 03/04/18 18:55 114/80 03/04/18 18:00 92 26 126/73 (90) 94 03/04/18 17:30 86 13 132/63 (86) 100 03/04/18 17:00 90 22 124/63 (83) 100 03/04/18 16:30 90 22 113/85 (94) 100 03/04/18 16:00 98.7 88 22 120/62 (81) 100 03/04/18 16:00 87 03/04/18 16:00 Venturi Mask 10.0 03/04/18 15:30 83 17 106/62 (77) 89 03/04/18 15:00 71 17 113/58 (76) 85 03/04/18 14:30 85 17 125/62 (83) 92 03/04/18 14:00 70 17 102/58 (73) 98 Intake and Output 03/04/18 03/05/18 19:00 07:00 Intake Total 310 ml 290 ml Output Total 2180 ml 750 ml Balance -1870 ml -460 ml Free Water 210 ml IV Total 40 ml Tube Feeding 60 ml 240 ml Other 50 ml Output Urine Total 2180 ml 750 ml Laboratory Tests 03/05/18 04:30: White Blood Count 8.7, Red Blood Count 5.94, Hemoglobin 15.4, Hematocrit 48.4, Mean Corpuscular Volume 81, Mean Corpuscular Hemoglobin 26.0L, Mean Corpuscular Hemoglobin Concent 31.9L, Red Cell Distribution Width 17.7H, Platelet Count 229 , Mean Platelet Volume 8.5, Neutrophils (%) (Auto) 82.4H, Lymphocytes (%) (Auto ) 9.0L, Monocytes (%) (Auto) 7.7, Eosinophils (%) (Auto) 0.4, Basophils (%) ( Auto) 0.6, Sodium Level 152H, Potassium Level 3.6, Chloride Level 114H, Carbon Dioxide Level 28, Anion Gap 10, Blood Urea Nitrogen 45H, Creatinine 1.4H, Estimat Glomerular Filtration Rate 52.6, Glucose Level 208H, Calcium Level 8.3L , Total Bilirubin 2.7H, Direct Bilirubin 1.3H, Aspartate Amino Transf (AST/SGOT ) 249H, Alanine Aminotransferase (ALT/SGPT) 354H, Alkaline Phosphatase 196H, Pro -B-Type Natriuretic Peptide 4982H, Total Protein 6.2L, Albumin 2.1L, Globulin 4.1, Albumin/Globulin Ratio 0.5L Height (Feet): 6 Height (Inches): 0.00 Weight (Pounds): 270 General Appearance: lethargic EENT: normal ENT inspection Neck: normal alignment Cardiovascular: normal peripheral pulses, normal rate, regular rhythm Respiratory/Chest: chest wall non-tender, decreased breath sounds Abdomen: normal bowel sounds, non tender, soft Extremities: normal inspection Edema: no edema noted Arm (L), no edema noted Arm (R), no edema noted Leg (L), no edema noted Leg (R), no edema noted Pedal (L), no edema noted Pedal (R), no edema noted Generalized Neurologic: motor weakness Skin: normal pigmentation, warm/dry Mick Garcia DO Mar 05, 2018 13:32
--- NOTE | 2018-03-05 13:45 | Diagnostic Imaging Report ---
Indications: Abdominal distention, abnormal ultrasound Technique: IV administration 5.5 mCi 99 M technetium Choletec. Serial images obtained over the abdomen for 90 minutes Note that additional delayed images were requested, but nurses reported that patient was too unstable to return to the department Comparison: There is age-related ultrasound abdomen dated 03/01/2018 Findings: Prompt tracer uptake within the liver. Extrahepatic bile ducts are seen at 13 minutes. Excretion into the duodenum demonstrated at 16 minutes. The gallbladder is not visualized at 60 minutes. After morphine administration, later images at about 80 minutes demonstrate a very small collection of tracer adjacent to the common bile duct in the expected region of the gallbladder neck. There is also a cholecystiform tracer collection in the expected region on the lateral delayed image, but only equivocally on the [place] delayed image. Impression: Questionable very small tracer collection in the region of the gallbladder fossa on delayed images, could represent partial filling of a nondistended gallbladder but this is not conclusive. Acute cholecystitis doubtful but not conclusively excluded based on these images and prior ultrasound, which showed a nondistended gallbladder. Patent common bile duct Findings discussed by phone with Dr. Cornelius at the time of interpretation
--- NOTE | 2018-03-05 13:57 | General Surgery Progress Note ---
General Surgery-Progress Note Subjective Additional Comments no acute events. labs noted and improved. HIDA noted Objective Last 24 Hour Vital Signs Date Time Temp Pulse Resp B/P (MAP) Pulse Ox O2 Delivery O2 Flow Rate FiO2 03/05/18 13:43 90 129/71 03/05/18 12:00 98.4 142 27 139/81 (100) 97 03/05/18 08:00 Venturi Mask 10.0 03/05/18 08:00 98.4 90 26 129/71 (90) 97 03/05/18 07:37 101 03/05/18 06:15 98.3 109 21 133/89 (104) 97 03/05/18 05:41 111/57 03/05/18 05:00 101 16 99/65 (76) 96 03/05/18 04:00 Venturi Mask 10.0 03/05/18 04:00 99.0 109 24 135/94 (108) 96 03/05/18 04:00 109 03/05/18 03:00 111 26 135/94 (108) 98 03/05/18 02:00 106 26 133/89 (104) 97 03/05/18 01:00 100 26 135/76 (95) 97 03/05/18 00:11 126/75 03/05/18 00:00 Venturi Mask 10.0 03/05/18 00:00 98.0 97 26 122/79 (93) 97 03/05/18 00:00 84 03/04/18 23:00 92 26 123/81 (95) 97 03/04/18 22:00 89 26 104/67 (79) 97 03/04/18 21:00 87 17 105/51 (69) 96 03/04/18 20:59 91 115/65 03/04/18 20:00 Venturi Mask 10.0 03/04/18 20:00 82 03/04/18 20:00 98.5 89 17 92/57 (69) 94 03/04/18 19:09 Nasal Cannula 2.0 28 03/04/18 19:09 91 18 Nasal Cannula 2.0 28 03/04/18 19:09 98 Nasal Cannula 2.0 28 03/04/18 19:00 89 17 99/56 (70) 94 03/04/18 18:55 114/80 12/2/18 18:00 92 26 126/73 (90) 94 03/04/18 17:30 86 13 132/63 (86) 100 03/04/18 17:00 90 22 124/63 (83) 100 03/04/18 16:30 90 22 113/85 (94) 100 03/04/18 16:00 98.7 88 22 120/62 (81) 100 03/04/18 16:00 87 03/04/18 16:00 Venturi Mask 10.0 03/04/18 15:30 83 17 106/62 (77) 89 03/04/18 15:00 71 17 113/58 (76) 85 03/04/18 14:30 85 17 125/62 (83) 92 03/04/18 14:00 70 17 102/58 (73) 98 I&O Intake and Output 03/04/18 03/05/18 19:00 07:00 Intake Total 310 ml 290 ml Output Total 2180 ml 750 ml Balance -1870 ml -460 ml Free Water 210 ml IV Total 40 ml Tube Feeding 60 ml 240 ml Other 50 ml Output Urine Total 2180 ml 750 ml Dressing: other Wound: other Drains: other Cardiovascular: RSR Respiratory: clear Abdomen: soft, flat, non-tender, present bowel sounds Extremities: other Laboratory Tests Test 03/05/18 04:30 03/05/18 13:30 White Blood Count 8.7 K/UL (4.8-10.8) Red Blood Count 5.94 M/UL (4.70-6.10) Hemoglobin 15.4 G/DL (14.2-18.0) Hematocrit 48.4 % (42.0-52.0) Mean Corpuscular Volume 81 FL (80-99) Mean Corpuscular Hemoglobin 26.0 PG (27.0-31.0) L Mean Corpuscular Hemoglobin Concent 31.9 G/DL (32.0-36.0) L Red Cell Distribution Width 17.7 % (11.6-14.8) H Platelet Count 229 K/UL (150-450) Mean Platelet Volume 8.5 FL (6.5-10.1) Neutrophils (%) (Auto) 82.4 % (45.0-75.0) H Lymphocytes (%) (Auto) 9.0 % (20.0-45.0) L Monocytes (%) (Auto) 7.7 % (1.0-10.0) Eosinophils (%) (Auto) 0.4 % (0.0-3.0) Basophils (%) (Auto) 0.6 % (0.0-2.0) Sodium Level 152 MMOL/L (136-145) H Potassium Level 3.6 MMOL/L (3.5-5.1) Chloride Level 114 MMOL/L (98-107) H Carbon Dioxide Level 28 MMOL/L (21-32) Anion Gap 10 mmol/L (5-15) Blood Urea Nitrogen 45 mg/dL (7-18) H Creatinine 1.4 MG/DL (0.55-1.30) H Estimat Glomerular Filtration Rate 52.6 mL/min (>60) Glucose Level 208 MG/DL (74-106) H Calcium Level 8.3 MG/DL (8.5-10.1) L Total Bilirubin 2.7 MG/DL (0.2-1.0) H Direct Bilirubin 1.3 MG/DL (0.0-0.3) H Aspartate Amino Transf (AST/SGOT) 249 U/L (15-37) H Alanine Aminotransferase (ALT/SGPT) 354 U/L (12-78) H Alkaline Phosphatase 196 U/L (46-116) H Pro-B-Type Natriuretic Peptide 4982 pg/mL (0-125) H Total Protein 6.2 G/DL (6.4-8.2) L Albumin 2.1 G/DL (3.4-5.0) L Globulin 4.1 g/dL Albumin/Globulin Ratio 0.5 (1.0-2.7) L Arterial Blood pH 7.480 (7.350-7.450) Arterial Blood Partial Pressure CO2 34.8 mmHg (35.0-45.0) L Arterial Blood Partial Pressure O2 50.8 mmHg (75.0-100.0) L Arterial Blood HCO3 25.7 mmol/L (22.0-26.0) Arterial Blood Oxygen Saturation 86.4 % (95-100) *L Arterial Blood Base Excess 2.8 (-2-2) H Janes Test Positive Plan Problems: (1) Abnormal LFTs Assessment & Plan: will obtain hepatitis panel US abdomen - Cholelithiasis; Borderline gallbladder wall thickening, could indicate early acute cholecystitis changes. Consider hepatobiliary nuclear scan if there is high clinical suspicion Negative for dilated ducts will monitor clinically for now HIDA noted hep panel negative hiv neg LFTs noted / improving no surgical intervention necessary at this time. -unlikely cholecystitis. likely contracted GB okay for diet d/c planning appreciate GI input trend labs (2) Cellulitis Assessment & Plan: chronic bilateral lower extremity wounds / ulcers acute on chronic cellulitis no abscess noted serous drainage multiple wounds that seem traumatic like cuts some small ulcers see wound photos for details -IV Abx as per ID -Keep legs elevated -apply skin protectant, hydrogel, non adherent dressings, and wrap -okay to ambulate. -venous and arterial studies ordered Garth Cornelius Mar 05, 2018 13:57
[2018-03-05] MEDS ORDERED: cefTRIAXone 1gm/D5W 55ml IVPB SCH ×2 (14:00)
--- NOTE | 2018-03-05 15:09 | General Progress Note ---
Progress Note Progress Note 1.ZHAO 2.Hypernatremia 3.CHF 4.A fib 5.HTN Maryana Collier MD Mar 05, 2018 15:09
[2018-03-05] MEDS: dilTIAZem HCl 30mg tab ORAL SCH ×2 (18:43→23:14)
[2018-03-05] MEDS ORDERED: Dyna-Hex 2% Top Sol 2oz TOPIC SCH ×2 (20:00)
[2018-03-05] MEDS: LORazepam Inj 2mg/ml 1ml IV PRN (20:47)
[2018-03-05] MEDS: Carvedilol 25mg Tab ORAL SCH (20:47)
[2018-03-05] MEDS: Eliquis 2.5mg tablet ORAL SCH (20:47)
--- NOTE | 2018-03-05 22:27 | Cardiology Progress Note ---
Assessment/Plan Assessment/Plan 1. Atrial fibrillation with controlled ventricular response, continue carvedilol , digoxin and cardizem. Continue Eliquis. 2. 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 3. ALOC. 4. Sepsis/leukocytosis. Subjective Subjective Atrial fibrillation with controlled ventricular response at rate of 87. Altered. Objective Last 24 Hour Vital Signs Date Time Temp Pulse Resp B/P (MAP) Pulse Ox O2 Delivery O2 Flow Rate FiO2 03/05/18 21:25 87 35 98 Full Face 100 03/05/18 20:47 97 143/86 03/05/18 20:00 Bi-pap 10.0 03/05/18 20:00 100 03/05/18 20:00 100.1 95 28 143/86 (105) 100 03/05/18 20:00 97 03/05/18 19:24 98 39 99 Full Face 100 03/05/18 19:24 Bi-pap 100 03/05/18 19:24 99 Bi-pap 100 03/05/18 18:43 141/84 03/05/18 18:43 96 141/84 03/05/18 17:35 96 26 100 Full Face 100 03/05/18 16:20 106 03/05/18 16:00 99.7 100 26 141/84 (103) 100 03/05/18 16:00 100 03/05/18 15:02 129/71 03/05/18 14:30 107 27 93 Full Face 100 03/05/18 13:43 90 129/71 03/05/18 12:00 146 03/05/18 12:00 98.4 142 27 139/81 (100) 97 03/05/18 08:00 Venturi Mask 10.0 03/05/18 08:00 98.4 90 26 129/71 (90) 97 03/05/18 07:37 101 03/05/18 06:15 98.3 109 21 133/89 (104) 97 03/05/18 05:41 111/57 03/05/18 05:00 101 16 99/65 (76) 96 03/05/18 04:00 Venturi Mask 10.0 03/05/18 04:00 99.0 109 24 135/94 (108) 96 03/05/18 04:00 109 03/05/18 03:00 111 26 135/94 (108) 98 03/05/18 02:00 106 26 133/89 (104) 97 03/05/18 01:00 100 26 135/76 (95) 97 03/05/18 00:11 126/75 03/05/18 00:00 Venturi Mask 10.0 03/05/18 00:00 98.0 97 26 122/79 (93) 97 03/05/18 00:00 84 03/04/18 23:00 92 26 123/81 (95) 97 Intake and Output 03/04/18 03/05/18 19:00 07:00 Intake Total 310 ml 290 ml Output Total 2180 ml 750 ml Balance -1870 ml -460 ml Free Water 210 ml IV Total 40 ml Tube Feeding 60 ml 240 ml Other 50 ml Output Urine Total 2180 ml 750 ml 2D Echo: LVEF 25%, Bi-atrial enlargement, Severe MR, RVSP 24 mmHg, RAP 15 mmHg Laboratory Tests Test 03/05/18 04:30 03/05/18 13:30 03/05/18 18:00 White Blood Count 8.7 K/UL (4.8-10.8) Red Blood Count 5.94 M/UL (4.70-6.10) Hemoglobin 15.4 G/DL (14.2-18.0) Hematocrit 48.4 % (42.0-52.0) Mean Corpuscular Volume 81 FL (80-99) Mean Corpuscular Hemoglobin 26.0 PG (27.0-31.0) L Mean Corpuscular Hemoglobin Concent 31.9 G/DL (32.0-36.0) L Red Cell Distribution Width 17.7 % (11.6-14.8) H Platelet Count 229 K/UL (150-450) Mean Platelet Volume 8.5 FL (6.5-10.1) Neutrophils (%) (Auto) 82.4 % (45.0-75.0) H Lymphocytes (%) (Auto) 9.0 % (20.0-45.0) L Monocytes (%) (Auto) 7.7 % (1.0-10.0) Eosinophils (%) (Auto) 0.4 % (0.0-3.0) Basophils (%) (Auto) 0.6 % (0.0-2.0) Sodium Level 152 MMOL/L (136-145) H Potassium Level 3.6 MMOL/L (3.5-5.1) Chloride Level 114 MMOL/L (98-107) H Carbon Dioxide Level 28 MMOL/L (21-32) Anion Gap 10 mmol/L (5-15) Blood Urea Nitrogen 45 mg/dL (7-18) H Creatinine 1.4 MG/DL (0.55-1.30) H Estimat Glomerular Filtration Rate 52.6 mL/min (>60) Glucose Level 208 MG/DL (74-106) H Calcium Level 8.3 MG/DL (8.5-10.1) L Total Bilirubin 2.7 MG/DL (0.2-1.0) H Direct Bilirubin 1.3 MG/DL (0.0-0.3) H Aspartate Amino Transf (AST/SGOT) 249 U/L (15-37) H Alanine Aminotransferase (ALT/SGPT) 354 U/L (12-78) H Alkaline Phosphatase 196 U/L (46-116) H Pro-B-Type Natriuretic Peptide 4982 pg/mL (0-125) H Total Protein 6.2 G/DL (6.4-8.2) L Albumin 2.1 G/DL (3.4-5.0) L Globulin 4.1 g/dL Albumin/Globulin Ratio 0.5 (1.0-2.7) L Arterial Blood pH 7.480 (7.350-7.450) Arterial Blood Partial Pressure CO2 34.8 mmHg (35.0-45.0) L Arterial Blood Partial Pressure O2 50.8 mmHg (75.0-100.0) L Arterial Blood HCO3 25.7 mmol/L (22.0-26.0) Arterial Blood Oxygen Saturation 86.4 % (95-100) *L Arterial Blood Base Excess 2.8 (-2-2) H Janes Test Positive Urine Eosinophils None seen (NONE SEEN) Urine Random Creatinine Pending Urine Random Microalbumin Pending Urine Random Total Protein 103 MG/DL (< 11.9) H Urine Random Sodium < 20 mmol/L (20-110) L Urine Creatinine 96.5 MG/DL (30.0-125.0) Urine Microalbumin/Creatinine Ratio Pending Objective HEENT: Atraumatic and normocephalic. Anicteric. Pupils are equal, round, and reactive to light and accommodation. Extraocular muscles intact. Altered. NECK: JVP elevated about 5cm. No carotid bruits. Carotid upstrokes 2+ bilaterally. CARDIOVASCULAR: Normal S1, S2. Irregularly irregular rhythm. 2/6 Holosystolic murmur, gallop, or rub. LUNGS: Diminished BS both lungs. ABDOMEN: Soft, nontender, and nondistended. No hepatosplenomegaly. Positive bowel sounds. EXTREMITIES: There is 1+ bilateral lower extremity edema with ulcerations. Sudarshan Stuart MD Mar 05, 2018 22:27
[2018-03-05] MEDS: Vancomycin 1 GM in D5W 275 ML IVPB SCH (23:12)
[2018-03-06] VITALS (14 sets, daily range): BP systolic 103–140; BP diastolic 62–104
[2018-03-06] MEDS: LORazepam Inj 2mg/ml 1ml IV PRN (02:50)
[2018-03-06] MEDS: dilTIAZem HCl 30mg tab ORAL SCH ×3 (05:09→18:08)
[2018-03-06] MEDS: HydrALAZINE 25mg tab ORAL SCH ×3 (05:09→18:08)
[2018-03-06] MEDS: NovoLOG Insulin Flexpen SUBQ SCH ×4 (05:11→20:40)
[2018-03-06 05:21] LABS: BASOPHILS % (AUTO) 0.9 % (0.0-2.0); EOSINOPHILS % (AUTO) 0.2 % (0.0-3.0); HEMATOCRIT 49.8 % (42.0-52.0); HEMOGLOBIN 15.9 G/DL (14.2-18.0); LYMPHOCYTES % (AUTO) 7.2 % (20.0-45.0); MEAN CORPUSCULAR VOLUME 82 FL (80-99); MONOCYTES % (AUTO) 7.6 % (1.0-10.0); PLATELET COUNT 239 K/UL (150-450); RED BLOOD COUNT 6.07 M/UL (4.70-6.10); RED CELL DISTRIBUTION WIDTH 18.2 % (11.6-14.8); WHITE BLOOD COUNT 13.4 K/UL (4.8-10.8)
[2018-03-06 05:52] LABS: PHOSPHORUS 3.2 MG/DL (2.5-4.9)
[2018-03-06 06:00] LABS: ALANINE AMINOTRANSFERASE 284 U/L (12-78); ALBUMIN 2.2 G/DL (3.4-5.0); ALBUMIN/GLOBULIN RATIO 0.5 (1.0-2.7); ALKALINE PHOSPHATASE 194 U/L (46-116); ANION GAP 8 mmol/L (5-15); ASPARTATE AMINO TRANSFERASE 96 U/L (15-37); BILIRUBIN,TOTAL 2.8 MG/DL (0.2-1.0); BLOOD UREA NITROGEN 41 mg/dL (7-18); CALCIUM 8.7 MG/DL (8.5-10.1); CARBON DIOXIDE 29 MMOL/L (21-32); CHLORIDE 118 MMOL/L (98-107); CREATININE 1.3 MG/DL (0.55-1.30); POTASSIUM 3.7 MMOL/L (3.5-5.1); SODIUM 155 MMOL/L (136-145)
[2018-03-06 06:03] LABS: BILIRUBIN,DIRECT 1.4 MG/DL (0.0-0.3)
[2018-03-06] MEDS ORDERED: Furosemide 40mg tab ORAL SCH (09:00)
[2018-03-06] MEDS ORDERED: Digoxin 0.5mg/2ml Inj IVP SCH (09:00)
--- NOTE | 2018-03-06 09:33 | Diagnostic Imaging Report ---
Indication: Dyspnea Technique: One view of the chest Comparison: 03/05/2018 Findings: There is improved aeration of the right lung. The right upper lobe appears largely clear except for mild interstitial prominence. There is hazy infiltrate throughout the right lower lobe. The left lung demonstrates diffuse interstitial prominence and central bronchial wall thickening. The heart is enlarged. There is a nasogastric tube again demonstrated Impression: Improved aeration of the right lung, presumably representing improving atelectasis. Right lower lobe infiltrate. There may also be pleural fluid on the right. Bilateral interstitial disease. Probably on the basis of pulmonary edema. However, considerable central bronchial wall thickening suggests a significant chronic component
[2018-03-06] MEDS: Eliquis 2.5mg tablet ORAL SCH ×2 (09:47→20:39)
[2018-03-06] MEDS: Carvedilol 25mg Tab ORAL SCH ×2 (09:49→20:39)
--- NOTE | 2018-03-06 10:17 | Pulmonolgy Critical Care Note ---
Critical Care - Asmt/Plan Problems: (1) Acute encephalopathy (2) Cellulitis (3) Acute renal failure (4) Diastolic CHF, chronic (5) Diabetes (6) Hyperglycemia (7) A-fib (8) Abnormal LFTs (9) Rapid atrial fibrillation Respiratory: monitor respiratory rate, adjust FIO2, CXR Cardiac: continue pressors, continue to monitor HR/BP Renal: keep IV fluid Infectious Disease: check cultures Gastrointestinal: continue feedings/current rate, hold feedings Endocrine: check TSH, check HgA1C, continue sliding scale insulin Hematologic: transfuse if hgb<8.5 Neurologic: PRN Ativan, keep patient comfortable Notes Reviewed: hemmer lockstitch, renal Discussed with: consultants Critical Care - Objective Last 24 Hour Vital Signs Date Time Temp Pulse Resp B/P (MAP) Pulse Ox O2 Delivery O2 Flow Rate FiO2 03/06/18 09:49 91 114/75 03/06/18 09:48 91 03/06/18 09:06 96 18 99 03/06/18 08:29 95 17 99 03/06/18 08:02 87 27 99 03/06/18 08:00 87 03/06/18 08:00 Bi-pap 03/06/18 07:33 Bi-pap 60 03/06/18 07:33 100 Bi-pap 60 03/06/18 07:30 86 21 100 Full Face 60 03/06/18 07:00 89 20 114/75 (88) 100 03/06/18 06:00 77 18 114/62 (79) 99 03/06/18 05:23 94 18 100 Full Face 60 03/06/18 05:09 114/76 03/06/18 05:09 81 114/76 03/06/18 05:00 94 18 114/76 (89) 99 03/06/18 04:00 81 03/06/18 04:00 Bi-pap 10.0 03/06/18 04:00 99.3 91 21 118/71 (87) 99 03/06/18 03:00 92 18 100 Full Face 70 03/06/18 03:00 92 22 122/104 (110) 100 03/06/18 02:00 91 22 119/84 (96) 100 03/06/18 01:00 82 23 123/81 (95) 100 03/06/18 00:53 82 28 100 Full Face 80 03/06/18 00:00 Bi-pap 10.0 03/06/18 00:00 88 03/06/18 00:00 98.6 88 37 103/83 (90) 100 03/05/18 23:38 87 35 98 Full Face 80 03/05/18 23:14 123/81 03/05/18 23:14 82 123/81 03/05/18 23:00 82 23 123/81 (95) 100 03/05/18 22:00 89 21 100/66 (77) 99 03/05/18 21:25 87 35 98 Full Face 90 03/05/18 21:00 89 18 144/78 (100) 99 03/05/18 20:47 97 143/86 03/05/18 20:00 Bi-pap 10.0 03/05/18 20:00 100 03/05/18 20:00 100.1 95 28 143/86 (105) 100 03/05/18 20:00 97 03/05/18 19:24 98 39 99 Full Face 100 03/05/18 19:24 Bi-pap 100 03/05/18 19:24 99 Bi-pap 100 03/05/18 18:43 141/84 03/05/18 18:43 96 141/84 03/05/18 17:35 96 26 100 Full Face 100 03/05/18 16:20 106 03/05/18 16:00 99.7 100 26 141/84 (103) 100 03/05/18 16:00 100 03/05/18 15:02 129/71 03/05/18 14:30 107 27 93 Full Face 100 03/05/18 13:43 90 129/71 03/05/18 12:00 146 03/05/18 12:00 98.4 142 27 139/81 (100) 97 Status: awake Condition: critical HEENT: atraumatic Lungs: clear Heart: HR/BP stable, regular Abdomen: soft, feeding tube Extremities: edema Decubiti: location Accucheck: 202 Critical Care - Subjective ROS Limited/Unobtainable: Yes Condition: critical EKG Rhythm: Sinus Rhythm FI02: 60 Sputum Amount: None Tube Feeding Amount: 30 I&O: Intake and Output 03/05/18 03/06/18 19:00 07:00 Output Total 600 ml 1170 ml Balance -600 ml -1170 ml Output Urine Total 600 ml 1170 ml CXR: right effusion Labs: Laboratory Tests Test 03/05/18 13:30 03/05/18 18:00 03/06/18 04:20 03/06/18 07:50 Arterial Blood pH 7.480 (7.350-7.450) 7.493 (7.350-7.450) Arterial Blood Partial Pressure CO2 34.8 mmHg (35.0-45.0) L 33.5 mmHg (35.0-45.0) L Arterial Blood Partial Pressure O2 50.8 mmHg (75.0-100.0) L 143.5 mmHg (75.0-100.0) H Arterial Blood HCO3 25.7 mmol/L (22.0-26.0) 25.1 mmol/L (22.0-26.0) Arterial Blood Oxygen Saturation 86.4 % (95-100) *L 98.7 % (95-100) Arterial Blood Base Excess 2.8 (-2-2) H 2.5 (-2-2) H Janes Test Positive Positive Urine Eosinophils None seen (NONE SEEN) Urine Random Creatinine Pending Urine Random Microalbumin Pending Urine Random Total Protein 103 MG/DL (< 11.9) H Urine Random Sodium < 20 mmol/L (20-110) L Urine Creatinine 96.5 MG/DL (30.0-125.0) Urine Microalbumin/Creatinine Ratio Pending White Blood Count 13.4 K/UL (4.8-10.8) #H Red Blood Count 6.07 M/UL (4.70-6.10) Hemoglobin 15.9 G/DL (14.2-18.0) Hematocrit 49.8 % (42.0-52.0) Mean Corpuscular Volume 82 FL (80-99) Mean Corpuscular Hemoglobin 26.3 PG (27.0-31.0) L Mean Corpuscular Hemoglobin Concent 32.0 G/DL (32.0-36.0) Red Cell Distribution Width 18.2 % (11.6-14.8) H Platelet Count 239 K/UL (150-450) Mean Platelet Volume 7.5 FL (6.5-10.1) Neutrophils (%) (Auto) 84.0 % (45.0-75.0) H Lymphocytes (%) (Auto) 7.2 % (20.0-45.0) L Monocytes (%) (Auto) 7.6 % (1.0-10.0) Eosinophils (%) (Auto) 0.2 % (0.0-3.0) Basophils (%) (Auto) 0.9 % (0.0-2.0) Sodium Level 155 MMOL/L (136-145) H Potassium Level 3.7 MMOL/L (3.5-5.1) Chloride Level 118 MMOL/L (98-107) H Carbon Dioxide Level 29 MMOL/L (21-32) Anion Gap 8 mmol/L (5-15) Blood Urea Nitrogen 41 mg/dL (7-18) H Creatinine 1.3 MG/DL (0.55-1.30) Estimat Glomerular Filtration Rate 57.3 mL/min (>60) Glucose Level 208 MG/DL (74-106) H Calcium Level 8.7 MG/DL (8.5-10.1) Phosphorus Level 3.2 MG/DL (2.5-4.9) Magnesium Level 1.9 MG/DL (1.8-2.4) Total Bilirubin 2.8 MG/DL (0.2-1.0) H Direct Bilirubin 1.4 MG/DL (0.0-0.3) H Aspartate Amino Transf (AST/SGOT) 96 U/L (15-37) H Alanine Aminotransferase (ALT/SGPT) 284 U/L (12-78) H Alkaline Phosphatase 194 U/L (46-116) H Total Protein 6.8 G/DL (6.4-8.2) Albumin 2.2 G/DL (3.4-5.0) L Globulin 4.6 g/dL Albumin/Globulin Ratio 0.5 (1.0-2.7) L Sunita Sahni MD Mar 06, 2018 10:17
--- NOTE | 2018-03-06 10:31 | Nephrology Progress Note ---
Assessment/Plan Assessment 1.hypernatremia 2.ZHAO 3.ckd 4.respiratory failure 5.CHF Plan free water via NG monitoring renal function avoid NSAID replace electrolyte as need it Subjective Constitutional: Reports: no symptoms HEENT: Reports: no symptoms Genitourinary: Reports: no symptoms Neurologic/Psychiatric: Reports: no symptoms Subjective in icu open his eyes with verbal stimuli not fallowing command Objective Objective Last 24 Hour Vital Signs Date Time Temp Pulse Resp B/P (MAP) Pulse Ox O2 Delivery O2 Flow Rate FiO2 03/06/18 09:49 91 114/75 03/06/18 09:48 91 03/06/18 09:06 96 18 99 03/06/18 08:29 95 17 99 03/06/18 08:02 87 27 99 03/06/18 08:00 87 03/06/18 08:00 Bi-pap 03/06/18 07:33 Bi-pap 60 03/06/18 07:33 100 Bi-pap 60 03/06/18 07:30 86 21 100 Full Face 60 03/06/18 07:00 89 20 114/75 (88) 100 03/06/18 06:00 77 18 114/62 (79) 99 03/06/18 05:23 94 18 100 Full Face 60 03/06/18 05:09 114/76 03/06/18 05:09 81 114/76 03/06/18 05:00 94 18 114/76 (89) 99 03/06/18 04:00 81 03/06/18 04:00 Bi-pap 10.0 03/06/18 04:00 99.3 91 21 118/71 (87) 99 03/06/18 03:00 92 18 100 Full Face 70 03/06/18 03:00 92 22 122/104 (110) 100 03/06/18 02:00 91 22 119/84 (96) 100 03/06/18 01:00 82 23 123/81 (95) 100 03/06/18 00:53 82 28 100 Full Face 80 03/06/18 00:00 Bi-pap 10.0 03/06/18 00:00 88 03/06/18 00:00 98.6 88 37 103/83 (90) 100 03/05/18 23:38 87 35 98 Full Face 80 03/05/18 23:14 123/81 03/05/18 23:14 82 123/81 03/05/18 23:00 82 23 123/81 (95) 100 03/05/18 22:00 89 21 100/66 (77) 99 03/05/18 21:25 87 35 98 Full Face 90 03/05/18 21:00 89 18 144/78 (100) 99 03/05/18 20:47 97 143/86 03/05/18 20:00 Bi-pap 10.0 03/05/18 20:00 100 03/05/18 20:00 100.1 95 28 143/86 (105) 100 03/05/18 20:00 97 03/05/18 19:24 98 39 99 Full Face 100 03/05/18 19:24 Bi-pap 100 03/05/18 19:24 99 Bi-pap 100 03/05/18 18:43 141/84 03/05/18 18:43 96 141/84 03/05/18 17:35 96 26 100 Full Face 100 03/05/18 16:20 106 03/05/18 16:00 99.7 100 26 141/84 (103) 100 03/05/18 16:00 100 03/05/18 15:02 129/71 03/05/18 14:30 107 27 93 Full Face 100 03/05/18 13:43 90 129/71 03/05/18 12:00 146 03/05/18 12:00 98.4 142 27 139/81 (100) 97 Intake and Output 03/05/18 03/06/18 19:00 07:00 Output Total 600 ml 1170 ml Balance -600 ml -1170 ml Output Urine Total 600 ml 1170 ml Laboratory Tests 03/05/18 13:30: Arterial Blood pH 7.480H, Arterial Blood Partial Pressure CO2 34.8L, Arterial Blood Partial Pressure O2 50.8L, Arterial Blood HCO3 25.7, Arterial Blood Oxygen Saturation 86.4*L, Arterial Blood Base Excess 2.8H, Janes Test Positive 03/05/18 18:00: Urine Eosinophils None seen, Urine Random Creatinine [Pending], Urine Random Microalbumin [Pending], Urine Random Total Protein 103H, Urine Random Sodium < 20L, Urine Creatinine 96.5, Urine Microalbumin/Creatinine Ratio [Pending] 03/06/18 04:20: White Blood Count 13.4#H, Red Blood Count 6.07, Hemoglobin 15.9, Hematocrit 49.8 , Mean Corpuscular Volume 82, Mean Corpuscular Hemoglobin 26.3L, Mean Corpuscular Hemoglobin Concent 32.0, Red Cell Distribution Width 18.2H, Platelet Count 239, Mean Platelet Volume 7.5, Neutrophils (%) (Auto) 84.0H, Lymphocytes (%) (Auto) 7.2L, Monocytes (%) (Auto) 7.6, Eosinophils (%) (Auto) 0.2, Basophils (%) (Auto) 0.9, Sodium Level 155H, Potassium Level 3.7, Chloride Level 118H, Carbon Dioxide Level 29, Anion Gap 8, Blood Urea Nitrogen 41H, Creatinine 1.3, Estimat Glomerular Filtration Rate 57.3, Glucose Level 208H, Calcium Level 8.7, Phosphorus Level 3.2, Magnesium Level 1.9, Total Bilirubin 2.8H, Direct Bilirubin 1.4H, Aspartate Amino Transf (AST/SGOT) 96H, Alanine Aminotransferase (ALT/SGPT) 284H, Alkaline Phosphatase 194H, Total Protein 6.8, Albumin 2.2L, Globulin 4.6, Albumin/Globulin Ratio 0.5L 03/06/18 07:50: Arterial Blood pH 7.493H, Arterial Blood Partial Pressure CO2 33.5L, Arterial Blood Partial Pressure O2 143.5H, Arterial Blood HCO3 25.1, Arterial Blood Oxygen Saturation 98.7, Arterial Blood Base Excess 2.5H, Janes Test Positive Height (Feet): 6 Height (Inches): 0.00 Weight (Pounds): 270 Objective HEENT: Atraumatic and normocephalic. Anicteric. Pupils are equal, round, and reactive to light and accommodation. Extraocular muscles intact. Altered. NECK: JVP elevated about 5cm. No carotid bruits. Carotid upstrokes 2+ bilaterally. CARDIOVASCULAR: Normal S1, S2. Irregularly irregular rhythm. 2/6 Holosystolic murmur, gallop, or rub. LUNGS: Diminished BS both lungs. ABDOMEN: Soft, nontender, and nondistended. No hepatosplenomegaly. Positive bowel sounds. EXTREMITIES: There is 1+ bilateral lower extremity edema with ulcerations. Maryana Collier MD Mar 06, 2018 10:31
[2018-03-06] MEDS: Vancomycin 1 GM in D5W 275 ML IVPB SCH (11:11)
--- NOTE | 2018-03-06 12:47 | Infectious Diseases Prog Note ---
Assessment/Plan Assessment/Plan Assessment: Acute respiratory failure- due to Afib w/ RVR- r/o probable PNA -CXR: Improved aeration of the right lung, presumably representing improving atelectasis. Right lower lobe infiltrate. There may also be pleural fluid on the right. Bilateral interstitial disease. Probably on the basis of pulmonary edema. However, considerable central bronchial wall thickening suggests a significant chronic component B/l LE purulent cellulitis- legs with scratches (self inflicted) -wound cx MRSA -L foot tibia/fibula xray: No acute process -R foot tibia/fibula xray: No acute bony trauma Fever, improving Mild leukocytosis, recurrent Afib w/ RVR ElevatedLFTs, improving - HIDA inconclusive but low prob for acute cholecysitis -HIDA: Questionable very small tracer collection in the region of the gallbladder fossa on delayed images, could represent partial filling of a nondistended gallbladder but this is not conclusive. Acute cholecystitis doubtful but not conclusively excluded based on these images and prior ultrasound, which showed a nondistended gallbladder. Patent common bile duct -Abd US: Cholelithiasis. Borderline gallbladder wall thickening, could indicate early acute cholecystitis changes. Consider hepatobiliary nuclear scan if there is high clinical suspicion. Negative for dilated ducts Incidental finding bilateral pleural effusions -acute hep panel, HIV sc neg ZHAO, resolving DM2 HTN CHF Schizoaffective disorder Plan: -Continue IV Vancomycin #7 and switch Ceftriaxone #2 to ZOsyn to cover for possible PNA/aspiration in view of worsening resp status, fevers and leukocytosis -03/03 SP Ancef #2 -03/01 SP Cefepime #2 -f/u cx -Monitor CBC/CMP, temperatures -wound care -Sx, GI f/u Thank you for this consultation. Will continue to follow along with you. Discussed with RN. Subjective Allergies: Coded Allergies: No Known Allergies (Unverified , 02/16/18) Subjective Patient transferred again to ICU due to tachypnea, rapid Afib, Patient was placed on BIpap Objective Vital Signs Last 24 Hour Vital Signs Date Time Temp Pulse Resp B/P (MAP) Pulse Ox O2 Delivery O2 Flow Rate FiO2 03/06/18 12:00 82 03/06/18 12:00 Venturi Mask 6.0 03/06/18 11:13 109/78 03/06/18 11:13 89 109/78 03/06/18 11:06 89 19 96 03/06/18 11:00 91 17 109/78 (88) 96 03/06/18 10:00 94 19 117/78 (91) 97 03/06/18 09:49 91 114/75 03/06/18 09:48 91 03/06/18 09:06 96 18 99 03/06/18 09:00 92 21 120/71 (87) 97 03/06/18 08:29 95 17 99 03/06/18 08:02 87 27 99 03/06/18 08:00 87 03/06/18 08:00 99.0 88 18 118/73 (88) 98 03/06/18 08:00 Bi-pap 03/06/18 07:33 Bi-pap 60 03/06/18 07:33 100 Bi-pap 60 03/06/18 07:30 86 21 100 Full Face 60 03/06/18 07:00 89 20 114/75 (88) 100 03/06/18 06:00 77 18 114/62 (79) 99 03/06/18 05:23 94 18 100 Full Face 60 03/06/18 05:09 114/76 03/06/18 05:09 81 114/76 03/06/18 05:00 94 18 114/76 (89) 99 03/06/18 04:00 81 03/06/18 04:00 Bi-pap 10.0 03/06/18 04:00 99.3 91 21 118/71 (87) 99 03/06/18 03:00 92 18 100 Full Face 70 03/06/18 03:00 92 22 122/104 (110) 100 03/06/18 02:00 91 22 119/84 (96) 100 03/06/18 01:00 82 23 123/81 (95) 100 03/06/18 00:53 82 28 100 Full Face 80 03/06/18 00:00 Bi-pap 10.0 03/06/18 00:00 88 03/06/18 00:00 98.6 88 37 103/83 (90) 100 03/05/18 23:38 87 35 98 Full Face 80 03/05/18 23:14 123/81 03/05/18 23:14 82 123/81 03/05/18 23:00 82 23 123/81 (95) 100 03/05/18 22:00 89 21 100/66 (77) 99 03/05/18 21:25 87 35 98 Full Face 90 03/05/18 21:00 89 18 144/78 (100) 99 03/05/18 20:47 97 143/86 03/05/18 20:00 Bi-pap 10.0 03/05/18 20:00 100 03/05/18 20:00 100.1 95 28 143/86 (105) 100 03/05/18 20:00 97 03/05/18 19:24 98 39 99 Full Face 100 03/05/18 19:24 Bi-pap 100 03/05/18 19:24 99 Bi-pap 100 03/05/18 18:43 141/84 03/05/18 18:43 96 141/84 03/05/18 17:35 96 26 100 Full Face 100 03/05/18 16:20 106 03/05/18 16:00 99.7 100 26 141/84 (103) 100 03/05/18 16:00 100 03/05/18 15:02 129/71 03/05/18 14:30 107 27 93 Full Face 100 03/05/18 13:43 90 129/71 Height (Feet): 6 Height (Inches): 0.00 Weight (Pounds): 270 Objective General Appearance: WD/WN Lines, tubes and drains: peripheral HEENT: normocephalic, atraumatic Neck: non-tender, normal alignment Respiratory/Chest: chest wall non-tender, lungs clear Breasts: no masses Cardiovascular/Chest: normal peripheral pulses Abdomen: normal bowel sounds, non tender Extremities: B/l leg erythema, swelling, with scratches and some minimal drainage Laboratory Tests Test 03/05/18 13:30 03/05/18 18:00 03/06/18 04:20 03/06/18 07:50 Arterial Blood pH 7.480 (7.350-7.450) 7.493 (7.350-7.450) Arterial Blood Partial Pressure CO2 34.8 mmHg (35.0-45.0) L 33.5 mmHg (35.0-45.0) L Arterial Blood Partial Pressure O2 50.8 mmHg (75.0-100.0) L 143.5 mmHg (75.0-100.0) H Arterial Blood HCO3 25.7 mmol/L (22.0-26.0) 25.1 mmol/L (22.0-26.0) Arterial Blood Oxygen Saturation 86.4 % (95-100) *L 98.7 % (95-100) Arterial Blood Base Excess 2.8 (-2-2) H 2.5 (-2-2) H Janes Test Positive Positive Urine Eosinophils None seen (NONE SEEN) Urine Random Creatinine Pending Urine Random Microalbumin Pending Urine Random Total Protein 103 MG/DL (< 11.9) H Urine Random Sodium < 20 mmol/L (20-110) L Urine Creatinine 96.5 MG/DL (30.0-125.0) Urine Microalbumin/Creatinine Ratio Pending White Blood Count 13.4 K/UL (4.8-10.8) #H Red Blood Count 6.07 M/UL (4.70-6.10) Hemoglobin 15.9 G/DL (14.2-18.0) Hematocrit 49.8 % (42.0-52.0) Mean Corpuscular Volume 82 FL (80-99) Mean Corpuscular Hemoglobin 26.3 PG (27.0-31.0) L Mean Corpuscular Hemoglobin Concent 32.0 G/DL (32.0-36.0) Red Cell Distribution Width 18.2 % (11.6-14.8) H Platelet Count 239 K/UL (150-450) Mean Platelet Volume 7.5 FL (6.5-10.1) Neutrophils (%) (Auto) 84.0 % (45.0-75.0) H Lymphocytes (%) (Auto) 7.2 % (20.0-45.0) L Monocytes (%) (Auto) 7.6 % (1.0-10.0) Eosinophils (%) (Auto) 0.2 % (0.0-3.0) Basophils (%) (Auto) 0.9 % (0.0-2.0) Sodium Level 155 MMOL/L (136-145) H Potassium Level 3.7 MMOL/L (3.5-5.1) Chloride Level 118 MMOL/L (98-107) H Carbon Dioxide Level 29 MMOL/L (21-32) Anion Gap 8 mmol/L (5-15) Blood Urea Nitrogen 41 mg/dL (7-18) H Creatinine 1.3 MG/DL (0.55-1.30) Estimat Glomerular Filtration Rate 57.3 mL/min (>60) Glucose Level 208 MG/DL (74-106) H Calcium Level 8.7 MG/DL (8.5-10.1) Phosphorus Level 3.2 MG/DL (2.5-4.9) Magnesium Level 1.9 MG/DL (1.8-2.4) Total Bilirubin 2.8 MG/DL (0.2-1.0) H Direct Bilirubin 1.4 MG/DL (0.0-0.3) H Aspartate Amino Transf (AST/SGOT) 96 U/L (15-37) H Alanine Aminotransferase (ALT/SGPT) 284 U/L (12-78) H Alkaline Phosphatase 194 U/L (46-116) H Total Protein 6.8 G/DL (6.4-8.2) Albumin 2.2 G/DL (3.4-5.0) L Globulin 4.6 g/dL Albumin/Globulin Ratio 0.5 (1.0-2.7) L Current Medications Medications (Trade) Dose Ordered Sig/Roseline Route PRN Reason Start Time Stop Time Status Last Admin Dose Admin Acetaminophen (Tylenol) 650 mg Q4H PRN ORAL fever (temp>100.5F) 03/05/18 18:19 03/30/18 18:18 Apixaban (Eliquis) 5 mg Q12HR ORAL 03/05/18 21:00 04/04/18 20:59 03/06/18 09:47 Carvedilol (Coreg) 25 mg EVERY 12 HOURS ORAL 03/05/18 21:00 04/02/18 20:59 03/06/18 09:49 Ceftriaxone Sodium 1 gm/ Dextrose 55 ml @ 110 mls/hr Q24H IVPB 03/06/18 14:00 03/12/18 13:59 Chlorhexidine Gluconate (Ashley-Hex 2%) 1 applic DAILY@2000 TOPIC 03/05/18 20:00 04/01/18 19:59 03/05/18 20:48 Dextrose (Dextrose 50%) 25 ml Q30M PRN IV Hypoglycemia 03/05/18 18:30 03/30/18 13:59 Dextrose (Dextrose 50%) 50 ml Q30M PRN IV Hypoglycemia 03/05/18 18:30 03/30/18 13:59 Digoxin (Lanoxin) 0.125 mg DAILY IVP 03/06/18 09:00 04/02/18 14:21 03/06/18 09:48 Diltiazem HCl (Cardizem) 30 mg EVERY 6 HOURS ORAL 03/05/18 18:22 04/04/18 18:21 03/06/18 11:13 Furosemide (Lasix) 40 mg DAILY ORAL 03/06/18 09:00 04/04/18 08:59 03/06/18 09:47 Haloperidol Lactate (Haldol) 5 mg Q4H PRN IM Agitation 03/05/18 18:20 03/31/18 18:19 03/06/18 02:50 Hydralazine HCl (Apresoline) 25 mg Q6HR ORAL 03/05/18 18:22 04/04/18 18:21 03/06/18 11:13 Insulin Aspart (NovoLOG) BEFORE MEALS AND HS SUBQ 03/05/18 21:00 03/31/18 16:29 03/06/18 11:14 Lorazepam (Ativan 2mg/ml 1ml) 1 mg Q4H PRN IV For Anxiety 03/05/18 18:20 03/08/18 18:19 03/06/18 02:50 Metoprolol Tartrate (Lopressor) 10 mg Q1H PRN IVP Heart rate >120 per minute 03/05/18 18:20 03/31/18 18:19 Morphine Sulfate (Morphine Sulfate) 2 mg Q4H PRN IVP Moderate Pain (Pain Scale 4-6) 03/05/18 18:21 03/07/18 18:20 03/06/18 05:08 Nitroglycerin (Ntg) 0.4 mg Q5M PRN SL Prn Chest Pain 03/05/18 18:21 03/30/18 18:20 Ondansetron HCl (Zofran) 4 mg Q6H PRN IVP Nausea & Vomiting 03/05/18 18:21 03/30/18 18:20 Polyethylene Glycol (Miralax) 17 gm DAILYPRN PRN ORAL Constipation 03/05/18 18:21 04/04/18 18:20 Temazepam (Restoril) 15 mg HSPRN PRN ORAL Insomnia 03/05/18 19:00 03/09/18 18:59 03/05/18 20:47 Vancomycin HCl (Vanco rx to dose) 1 ea DAILY PRN MISC rx protocol 03/06/18 09:00 04/01/18 13:59 Vancomycin HCl 1 gm/Dextrose 275 ml @ 183.708 mls/hr Q12H IVPB 03/05/18 23:00 03/10/18 10:59 03/06/18 11:11 Susan Dennis M.D. Mar 06, 2018 12:47
--- NOTE | 2018-03-06 12:52 | General Progress Note ---
Assessment/Plan Problem List: (1) Diabetes ICD Codes: E11.9 - Type 2 diabetes mellitus without complications SNOMED: 48249338 (2) Cellulitis ICD Codes: L03.90 - Cellulitis, unspecified SNOMED: 166155599 (3) Acute renal failure ICD Codes: N17.9 - Acute kidney failure, unspecified SNOMED: 64780468 (4) Rapid atrial fibrillation ICD Codes: I48.91 - Unspecified atrial fibrillation SNOMED: 863178315 Status: unchanged Assessment/Plan o2 pulm tx cardio f/u abx cbc bmp am Subjective Constitutional: Reports: weakness Allergies: Coded Allergies: No Known Allergies (Unverified , 02/16/18) All Systems: reviewed and negative except above Subjective o2nc og tube sleeping Objective Last 24 Hour Vital Signs Date Time Temp Pulse Resp B/P (MAP) Pulse Ox O2 Delivery O2 Flow Rate FiO2 03/06/18 12:00 82 03/06/18 12:00 Venturi Mask 6.0 03/06/18 11:13 109/78 03/06/18 11:13 89 109/78 03/06/18 11:06 89 19 96 03/06/18 11:00 91 17 109/78 (88) 96 03/06/18 10:00 94 19 117/78 (91) 97 03/06/18 09:49 91 114/75 03/06/18 09:48 91 03/06/18 09:06 96 18 99 03/06/18 09:00 92 21 120/71 (87) 97 03/06/18 08:29 95 17 99 03/06/18 08:02 87 27 99 03/06/18 08:00 87 03/06/18 08:00 99.0 88 18 118/73 (88) 98 03/06/18 08:00 Bi-pap 03/06/18 07:33 Bi-pap 60 03/06/18 07:33 100 Bi-pap 60 03/06/18 07:30 86 21 100 Full Face 60 03/06/18 07:00 89 20 114/75 (88) 100 03/06/18 06:00 77 18 114/62 (79) 99 03/06/18 05:23 94 18 100 Full Face 60 03/06/18 05:09 114/76 03/06/18 05:09 81 114/76 03/06/18 05:00 94 18 114/76 (89) 99 03/06/18 04:00 81 03/06/18 04:00 Bi-pap 10.0 03/06/18 04:00 99.3 91 21 118/71 (87) 99 03/06/18 03:00 92 18 100 Full Face 70 03/06/18 03:00 92 22 122/104 (110) 100 03/06/18 02:00 91 22 119/84 (96) 100 03/06/18 01:00 82 23 123/81 (95) 100 03/06/18 00:53 82 28 100 Full Face 80 03/06/18 00:00 Bi-pap 10.0 03/06/18 00:00 88 03/06/18 00:00 98.6 88 37 103/83 (90) 100 03/05/18 23:38 87 35 98 Full Face 80 03/05/18 23:14 123/81 03/05/18 23:14 82 123/81 03/05/18 23:00 82 23 123/81 (95) 100 03/05/18 22:00 89 21 100/66 (77) 99 03/05/18 21:25 87 35 98 Full Face 90 03/05/18 21:00 89 18 144/78 (100) 99 03/05/18 20:47 97 143/86 03/05/18 20:00 Bi-pap 10.0 03/05/18 20:00 100 03/05/18 20:00 100.1 95 28 143/86 (105) 100 03/05/18 20:00 97 03/05/18 19:24 98 39 99 Full Face 100 03/05/18 19:24 Bi-pap 100 03/05/18 19:24 99 Bi-pap 100 03/05/18 18:43 141/84 03/05/18 18:43 96 141/84 03/05/18 17:35 96 26 100 Full Face 100 03/05/18 16:20 106 03/05/18 16:00 99.7 100 26 141/84 (103) 100 03/05/18 16:00 100 03/05/18 15:02 129/71 03/05/18 14:30 107 27 93 Full Face 100 03/05/18 13:43 90 129/71 Intake and Output 03/05/18 03/06/18 19:00 07:00 Output Total 600 ml 1170 ml Balance -600 ml -1170 ml Output Urine Total 600 ml 1170 ml Laboratory Tests 03/05/18 13:30: Arterial Blood pH 7.480H, Arterial Blood Partial Pressure CO2 34.8L, Arterial Blood Partial Pressure O2 50.8L, Arterial Blood HCO3 25.7, Arterial Blood Oxygen Saturation 86.4*L, Arterial Blood Base Excess 2.8H, Janes Test Positive 03/05/18 18:00: Urine Eosinophils None seen, Urine Random Creatinine [Pending], Urine Random Microalbumin [Pending], Urine Random Total Protein 103H, Urine Random Sodium < 20L, Urine Creatinine 96.5, Urine Microalbumin/Creatinine Ratio [Pending] 03/06/18 04:20: White Blood Count 13.4#H, Red Blood Count 6.07, Hemoglobin 15.9, Hematocrit 49.8 , Mean Corpuscular Volume 82, Mean Corpuscular Hemoglobin 26.3L, Mean Corpuscular Hemoglobin Concent 32.0, Red Cell Distribution Width 18.2H, Platelet Count 239, Mean Platelet Volume 7.5, Neutrophils (%) (Auto) 84.0H, Lymphocytes (%) (Auto) 7.2L, Monocytes (%) (Auto) 7.6, Eosinophils (%) (Auto) 0.2, Basophils (%) (Auto) 0.9, Sodium Level 155H, Potassium Level 3.7, Chloride Level 118H, Carbon Dioxide Level 29, Anion Gap 8, Blood Urea Nitrogen 41H, Creatinine 1.3, Estimat Glomerular Filtration Rate 57.3, Glucose Level 208H, Calcium Level 8.7, Phosphorus Level 3.2, Magnesium Level 1.9, Total Bilirubin 2.8H, Direct Bilirubin 1.4H, Aspartate Amino Transf (AST/SGOT) 96H, Alanine Aminotransferase (ALT/SGPT) 284H, Alkaline Phosphatase 194H, Total Protein 6.8, Albumin 2.2L, Globulin 4.6, Albumin/Globulin Ratio 0.5L 03/06/18 07:50: Arterial Blood pH 7.493H, Arterial Blood Partial Pressure CO2 33.5L, Arterial Blood Partial Pressure O2 143.5H, Arterial Blood HCO3 25.1, Arterial Blood Oxygen Saturation 98.7, Arterial Blood Base Excess 2.5H, Janes Test Positive Height (Feet): 6 Height (Inches): 0.00 Weight (Pounds): 270 General Appearance: lethargic EENT: normal ENT inspection Neck: normal alignment Cardiovascular: normal peripheral pulses, normal rate, regular rhythm Respiratory/Chest: chest wall non-tender, decreased breath sounds Abdomen: normal bowel sounds, non tender, soft Extremities: normal inspection Edema: no edema noted Arm (L), no edema noted Arm (R), no edema noted Leg (L), no edema noted Leg (R), no edema noted Pedal (L), no edema noted Pedal (R), no edema noted Generalized Neurologic: motor weakness Skin: normal pigmentation, warm/dry Mick Garcia DO Mar 06, 2018 12:52
[2018-03-06] MEDS ORDERED: Piperacillin/Tazobactam 3.375 GM in NS 110 ML IVPB SCH (14:00)
[2018-03-06] MEDS ORDERED: cefTRIAXone 1 GM in D5W 55 ML IVPB SCH (14:00)
--- NOTE | 2018-03-06 16:15 | GI Progress Note ---
Assessment/Plan Problems: (1) Dysphagia ICD Codes: R13.10 - Dysphagia, unspecified SNOMED: 66295803, 211664623 (2) Drug abuse ICD Codes: F19.10 - Other psychoactive substance abuse, uncomplicated SNOMED: 67855680 Status: unchanged Status Narrative Discussed with Dr. Noe. Assessment/Plan us reviewed >> Cholelithiasis. Borderline gallbladder wall thickening, could indicate early acute cholecystitis changes. neg hepatitis panel HIDA negative LFTs still elevated, repeat NGTF swallow eval, PEG if necessary prn transfusions ppi fu labs The patient was seen and examined at bedside and all new and available data was reviewed in the patients chart. I agree with the above findings, impression and plan. (Patient seen earlier today. Signature stamp does not reflect patient encounter time.). - Khalif Noe MD Subjective Subjective limited Objective Last 24 Hour Vital Signs Date Time Temp Pulse Resp B/P (MAP) Pulse Ox O2 Delivery O2 Flow Rate FiO2 03/06/18 12:00 82 03/06/18 12:00 Venturi Mask 6.0 03/06/18 11:13 109/78 03/06/18 11:13 89 109/78 03/06/18 11:06 89 19 96 03/06/18 11:00 91 17 109/78 (88) 96 03/06/18 10:00 94 19 117/78 (91) 97 03/06/18 09:49 91 114/75 03/06/18 09:48 91 03/06/18 09:06 96 18 99 03/06/18 09:00 92 21 120/71 (87) 97 03/06/18 08:29 95 17 99 03/06/18 08:02 87 27 99 03/06/18 08:00 87 03/06/18 08:00 99.0 88 18 118/73 (88) 98 03/06/18 08:00 Bi-pap 03/06/18 07:33 Bi-pap 60 03/06/18 07:33 100 Bi-pap 60 03/06/18 07:30 86 21 Bi-pap 60 03/06/18 07:30 86 21 100 Full Face 60 03/06/18 07:00 89 20 114/75 (88) 100 03/06/18 06:00 77 18 114/62 (79) 99 03/06/18 05:23 94 18 100 Full Face 60 03/06/18 05:09 114/76 03/06/18 05:09 81 114/76 03/06/18 05:00 94 18 114/76 (89) 99 03/06/18 04:00 81 03/06/18 04:00 Bi-pap 10.0 03/06/18 04:00 99.3 91 21 118/71 (87) 99 03/06/18 03:00 92 18 100 Full Face 70 03/06/18 03:00 92 22 122/104 (110) 100 03/06/18 02:00 91 22 119/84 (96) 100 03/06/18 01:00 82 23 123/81 (95) 100 03/06/18 00:53 82 28 100 Full Face 80 03/06/18 00:00 Bi-pap 10.0 03/06/18 00:00 88 03/06/18 00:00 98.6 88 37 103/83 (90) 100 03/05/18 23:38 87 35 98 Full Face 80 03/05/18 23:14 123/81 03/05/18 23:14 82 123/81 03/05/18 23:00 82 23 123/81 (95) 100 03/05/18 22:00 89 21 100/66 (77) 99 03/05/18 21:25 87 35 98 Full Face 90 03/05/18 21:00 89 18 144/78 (100) 99 03/05/18 20:47 97 143/86 03/05/18 20:00 Bi-pap 10.0 03/05/18 20:00 100 03/05/18 20:00 100.1 95 28 143/86 (105) 100 03/05/18 20:00 97 03/05/18 19:24 98 39 99 Full Face 100 03/05/18 19:24 Bi-pap 100 03/05/18 19:24 99 Bi-pap 100 03/05/18 18:43 141/84 03/05/18 18:43 96 141/84 03/05/18 17:35 96 26 100 Full Face 100 03/05/18 16:20 106 Intake and Output 03/05/18 03/06/18 19:00 07:00 Output Total 600 ml 1170 ml Balance -600 ml -1170 ml Output Urine Total 600 ml 1170 ml Laboratory Tests Test 03/05/18 18:00 03/06/18 04:20 03/06/18 07:50 Urine Eosinophils None seen (NONE SEEN) Urine Random Creatinine Pending Urine Random Microalbumin Pending Urine Random Total Protein 103 MG/DL (< 11.9) H Urine Random Sodium < 20 mmol/L (20-110) L Urine Creatinine 96.5 MG/DL (30.0-125.0) Urine Microalbumin/Creatinine Ratio Pending White Blood Count 13.4 K/UL (4.8-10.8) #H Red Blood Count 6.07 M/UL (4.70-6.10) Hemoglobin 15.9 G/DL (14.2-18.0) Hematocrit 49.8 % (42.0-52.0) Mean Corpuscular Volume 82 FL (80-99) Mean Corpuscular Hemoglobin 26.3 PG (27.0-31.0) L Mean Corpuscular Hemoglobin Concent 32.0 G/DL (32.0-36.0) Red Cell Distribution Width 18.2 % (11.6-14.8) H Platelet Count 239 K/UL (150-450) Mean Platelet Volume 7.5 FL (6.5-10.1) Neutrophils (%) (Auto) 84.0 % (45.0-75.0) H Lymphocytes (%) (Auto) 7.2 % (20.0-45.0) L Monocytes (%) (Auto) 7.6 % (1.0-10.0) Eosinophils (%) (Auto) 0.2 % (0.0-3.0) Basophils (%) (Auto) 0.9 % (0.0-2.0) Sodium Level 155 MMOL/L (136-145) H Potassium Level 3.7 MMOL/L (3.5-5.1) Chloride Level 118 MMOL/L (98-107) H Carbon Dioxide Level 29 MMOL/L (21-32) Anion Gap 8 mmol/L (5-15) Blood Urea Nitrogen 41 mg/dL (7-18) H Creatinine 1.3 MG/DL (0.55-1.30) Estimat Glomerular Filtration Rate 57.3 mL/min (>60) Glucose Level 208 MG/DL (74-106) H Calcium Level 8.7 MG/DL (8.5-10.1) Phosphorus Level 3.2 MG/DL (2.5-4.9) Magnesium Level 1.9 MG/DL (1.8-2.4) Total Bilirubin 2.8 MG/DL (0.2-1.0) H Direct Bilirubin 1.4 MG/DL (0.0-0.3) H Aspartate Amino Transf (AST/SGOT) 96 U/L (15-37) H Alanine Aminotransferase (ALT/SGPT) 284 U/L (12-78) H Alkaline Phosphatase 194 U/L (46-116) H Total Protein 6.8 G/DL (6.4-8.2) Albumin 2.2 G/DL (3.4-5.0) L Globulin 4.6 g/dL Albumin/Globulin Ratio 0.5 (1.0-2.7) L Arterial Blood pH 7.493 (7.350-7.450) Arterial Blood Partial Pressure CO2 33.5 mmHg (35.0-45.0) L Arterial Blood Partial Pressure O2 143.5 mmHg (75.0-100.0) H Arterial Blood HCO3 25.1 mmol/L (22.0-26.0) Arterial Blood Oxygen Saturation 98.7 % (95-100) Arterial Blood Base Excess 2.5 (-2-2) H Janes Test Positive Height (Feet): 6 Height (Inches): 0.00 Weight (Pounds): 270 General Appearance: no apparent distress Cardiovascular: normal rate Respiratory/Chest: normal breath sounds, no respiratory distress, other - venturi mask Abdominal Exam: normal bowel sounds, non tender, soft, other - OGT Extremities: non-tender Efraín Hernandez NP Mar 06, 2018 16:15
--- NOTE | 2018-03-06 17:54 | Consultation ---
Consult Note Consult Note NEUROLOGY CONSULTATION: Full note dictated #[id number] 57 y/o, CM, ?H who was hospitalized for right lower extremity cellulitis. He was transferred to the ICU for AMS, a-fib with RVR, SOB and has since been given multiple doses of Ativan, Haldol and Morphine. He is poorly responsive now and thus this consult was requested. ON EXAM: Does not respond even to DP. EOM present on OCM Corneals equal Gag absent. Globally absent DTRs Unable to obtain right plantar due to no toes, left plantar extensor. IMPRESSION: Severe toxic/metabolic encephalopathy. Unable to exclude intracranial pathology due to degree of encephalopathy. REC: EEG CT of brain without contrast in AM. Labs for encephalopathy. Dawit Marshall M.D., M.S.P.H. Dawit Marshall MD Mar 06, 2018 17:54
--- NOTE | 2018-03-06 18:45 | Consultation ---
DATE OF CONSULTATION: 03/06/2018 NEPHROLOGY CONSULTATION CONSULTING PHYSICIAN: Maryana Collier M.D. REFERRING PHYSICIAN: Mick Garcia D.O. REASON FOR CONSULTATION: Acute renal failure, hypernatremia. HISTORY OF PRESENT ILLNESS: The patient is an unfortunate 57-year-old male with past medical history significant for history of hypertension, diabetes, cardiomyopathy with ejection fraction of 25%, history of drug abuse, history of bilateral lower extremity edema and cellulitis who was originally admitted to [facility] 03/01/2018 for evaluation of tachycardia and the patient was apparently two weeks ago. The patient had lower extremity edema, found to have atrial fibrillation with rapid ventricular response and was admitted in the hospital, found to be in CHF and started on Lasix. His mental status changed. NG-tube was placed. The patient also was placed on BiPAP and was transferred to intensive care unit setting, found to have abnormal electrolytes. I was called for management of renal disease and electrolyte imbalance. PAST MEDICAL HISTORY: 1. History of cardiomyopathy with ejection fraction of 25%. 2. History of diabetes. 3. History of hypertension. 4. History of drug abuse. 5. History of bilateral lower extremity cellulitis. ALLERGIES: No known drug allergies. FAMILY HISTORY: Negative for any history of premature heart disease on first-degree relatives. PAST SURGICAL HISTORY: No history of tobacco or alcohol. The patient has a history of amphetamine and marijuana use on a regular basis. MEDICATIONS: At home are including. 1. Aspirin 81 mg daily. 2. Atorvastatin 40 mg daily. 3. Bumetanide 2 mg daily. 4. 5. Levaquin 500 mg for 5 days. 6. Lisinopril 10 mg daily. 7. Lyrica 100 mg daily. REVIEW OF SYSTEMS: Unable to obtain due to the patient's condition and mental status. PHYSICAL EXAMINATION: GENERAL: He is well-developed and well-nourished male but he seems to be confused . VITAL SIGNS: Temperature of 98 degrees, blood pressure 114/75. HEENT: Head and neck, the patient has an old G-tube in place. NECK: no JVP. No LAD. He is on BiPAP. He opened his eyes to verbal stimuli. LUNGS: Decreased breathing sound on the both sides. CARDIAC: Regular rate and rhythm. S1 and S2. No murmur. No rub. ABDOMEN: Soft, nontender, and nondistended. EXTREMITIES: There is no evidence of edema on both lower extremities ulceration of lower extremities. LABORATORY AND DIAGNOSTIC DATA: The patient had WBC count of 13,000, hemoglobin of 15.9, hematocrit of 49, platelet count of 236. Chemistry reveals sodium 155, potassium 3.7, chloride 118, bicarb 29, BUN of 41, creatinine of 1.3, glucose of 208. Calcium of 8.7. AST 96 dropped from 306, ALT 284 dropped from 368. BNP is 4982. Total protein of 6.8, albumin of 2.6. UA revealed specific gravity of 1.10. Urine sodium less than 20, urine protein 103, urine creatinine 96.5. ASSESSMENT: 1. Hypernatremia. 2. Acute renal failure which is improving at this time. The patient was admitted with creatinine of 1.7, now creatinine is 1.3. 3. Elevated liver enzyme. 4. Fluid overload. 5. Respiratory failure. 6. History of cardiomyopathy PLAN: 1. Plan for the patient to obtain UA. 2. Check the random urine protein and creatinine ratio to calculate the proteinuria. 3. Check the urine sodium and creatinine to calculate fractional excretion of sodium. 4. Ultrasound of the kidney to evaluate the kidney size. 5. Check inputs and outputs. 6. Free water via NG-tube. 7. Replace electrolytes as needed. At the end, I would like to thank, Dr. Mick Garcia, for allowing me to participate in the care of this patient. Maryana Collier M.D. DR: Dennis JOB#: [id number] CC:
[2018-03-06] MEDS ORDERED: LORazepam Inj 2mg/ml 1ml IV PRN (19:45)
[2018-03-06] MEDS ORDERED: Morphine Sulfate 2mg/ml Inj IVP PRN (19:45)
[2018-03-06] MEDS ORDERED: Haloperidol 5mg/ml Inj IM PRN (19:45)
[2018-03-06] MEDS ORDERED: Nitroglycerin Subl 0.4mg tab SL PRN (19:45)
[2018-03-06] MEDS ORDERED: Metoprolol 5mg/5ml Inj IVP PRN (19:45)
[2018-03-06] MEDS ORDERED: Miralax 17gm pkt ORAL PRN (19:45)
[2018-03-06] MEDS: Dyna-Hex 2% Top Sol 2oz TOPIC SCH (20:38)
[2018-03-06] MEDS: Piperacillin/Tazobactam 3.375 GM in NS 110 ML IVPB SCH (22:06)
--- NOTE | 2018-03-06 22:15 | Consultation ---
DATE OF CONSULTATION: 03/06/2018 NEUROLOGY CONSULTATION: CONSULTING PHYSICIAN: Dawit Marshall M.D. REFERRING PHYSICIAN: Mick Garcia D.O. HISTORY: Mr. Dustin Cornejo is a 57-year-old, gentleman, of unknown handedness, who does have a past history of schizophrenia, drug abuse, diabetes, lower extremity cellulitis, and paroxysmal atrial fibrillation. He apparently lives in a snf and was brought into the hospital on 02/28/2018 for bilateral lower extremity cellulitis. He was treated with appropriate antibiotics and was improving until 03/05/2018 when he was noted to have a significant change in his mental state. He was transferred to the ICU for altered mental state, atrial fibrillation with rapid ventricular rate, shortness of breath due to hypoxic respiratory failure, and was quite agitated. He has been given multiple doses of Ativan, Haldol, and morphine and at this point in time, he is poorly responsive. This consultation was requested to evaluate the patient for his altered mental state. The patient himself is unarousable and thus no further history could be obtained. PAST HISTORY: As mentioned above. FAMILY HISTORY: Unavailable. PERSONAL HISTORY: Home: He lives in a snf. Work: He is unemployed. Habits: Unknown. PRESENT MEDICATIONS: Ceftriaxone, Zosyn, digoxin, furosemide, vancomycin, Eliquis, carvedilol, insulin, temazepam, diltiazem, hydralazine, morphine, nitroglycerin, Zofran, MiraLAX, Haldol, Ativan, metoprolol, and Tylenol. PHYSICAL EXAMINATION: GENERAL: He is a well developed, well nourished, gentleman, lying in bed, in no acute distress. VITAL SIGNS: Pulse 102/minute, blood pressure 130/87 mmHg, respirations 18/minute, and temperature 99.1 degrees Fahrenheit. HEAD: Normocephalic and atraumatic. EENT: Examination benign. NECK: No neck rigidity was observed. NEUROLOGIC EXAMINATION: MENTAL STATUS EXAMINATION: He was unarousable even on applying deep painful stimuli. Further mental status testing was impossible. SPEECH: Could not be tested. LANGUAGE: Could not be tested. CRANIAL NERVE EXAMINATION: II: He did not blink to threat. III, IV & : The external ocular movements were present on oculocephalic maneuvers. The pupils were 3 mm in diameter and did not react to light. V & VII: The corneal reflexes were present and equal. VIII: He did not respond to sounds and had no nystagmus. IX & X: The gag reflex was absent. XI: The sternocleidomastoids and trapezii did not function. XII: The tongue was in the midline. MOTOR SYSTEM: The tone was normal in all 4 extremities. Examination of muscle mass revealed no focal wasting. 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 Examination of power was impossible to perform because even on applying deep painful stimuli, no movements were seen. SENSORY EXAMINATION: He did not respond even to deep painful stimuli. REFLEXES: 0 at the biceps, triceps, brachioradialis, knees, and ankles. The right plantar response could not be tested as he had no toes, and the left plantar response was extensor. COORDINATION, STANCE & GAIT: Could not be tested. DIAGNOSTIC IMPRESSION: 1. Mr. Dustin Cornejo is a 57-year-old, gentleman, of unknown handedness, who was hospitalized for right lower extremity cellulitis and then in the hospital deteriorated to a point where became quite altered with regards to his mental state on 03/05/2018 and was transferred to the ICU. He was noted to have atrial fibrillation with a rapid ventricular rate and shortness of breath related to hypoxic respiratory failure and then became agitated as a result of which he was given multiple doses of Ativan, Haldol, and morphine. At this point in time, he is poorly responsive. 2. On neurological examination, at this time, he does not respond even to deep painful stimuli. He does have eye movements on oculocephalic maneuvers, corneal reflexes that are diminished but equal, absent gag reflex, globally absent deep tendon reflexes, and an extensor plantar response on the left side with inability to test the plantar response on the right side because of the absence of toes. 3. His latest laboratory data revealed that his WBC count is elevated to 13,400. He had his last ESR on 03/02/2018 and it was 7. His blood gases prior to moving into the ICU revealed that he had a pH of 7.48, pCO2 of 35, and pO2 of 51. His latest chemistry panel reveals that his sodium is elevated to 155. His chloride is elevated to 118. His BUN is elevated to 41. His creatinine is elevated to 1.3. His glucose is elevated to 208. His total bilirubin is elevated at 2.8. His AST, ALT, and alkaline phosphatase are all elevated. His albumin is low at 2.2. His urine toxicology screen on admission revealed that tetrahydrocannabinols were present. His serologies are negative for HIV. 4. The patient's history, neurological examination, and laboratory data are most compatible with severe toxic metabolic encephalopathy, which is multifactorial; however, it is impossible to exclude intracranial pathology due to the severe degree of encephalopathy. RECOMMENDATIONS: 1. Agree with management thus far. 2. Would try to keep the patient off all mind-altering drugs. 3. An EEG will be ordered to evaluate the patient for the degree and type of cerebral dysfunction. 4. A CT scan of the brain without contrast should be performed to exclude acute intracranial pathology. 5. In addition to the laboratory tests already done, a B12 level, folate level, vitamin D level, and RPR will be obtained to work the patient up for other treatable causes of encephalopathy. Thank you for entrusting me with the care of Mr. Cornejo. I shall follow him with you. Dawit Marshall M.D., M.S.P.H. DR: PHIL JOB#: [id number] CHANTEL
[2018-03-06] MEDS ORDERED: Vancomycin 1 GM in D5W 275 ML IVPB SCH (23:00)
--- NOTE | 2018-03-06 23:18 | Cardiology Progress Note ---
Assessment/Plan Assessment/Plan 1. Atrial fibrillation with rapid ventricular response, continue carvedilol and digoxin, increase cardizem to 90 mg q6 hrs. Continue Eliquis. 2. 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 3. Severe mitral regurgitation. Subjective Subjective Atrial fibrillation with controlled ventricular response at rate of 105. Altered on Venturi mask. Objective Last 24 Hour Vital Signs Date Time Temp Pulse Resp B/P (MAP) Pulse Ox O2 Delivery O2 Flow Rate FiO2 03/06/18 20:39 105 140/97 03/06/18 20:00 102 03/06/18 20:00 Venturi Mask 6.0 03/06/18 20:00 97.7 100 18 140/97 (111) 95 03/06/18 19:55 Venturi Mask 6.0 35 03/06/18 19:55 97 Venturi Mask 6.0 35 03/06/18 18:08 130/87 03/06/18 18:08 104 130/87 03/06/18 16:00 99.1 102 18 130/87 (101) 99 03/06/18 16:00 Venturi Mask 6.0 03/06/18 16:00 97 03/06/18 12:00 82 03/06/18 12:00 Venturi Mask 6.0 03/06/18 11:13 109/78 03/06/18 11:13 89 109/78 03/06/18 11:06 89 19 96 03/06/18 11:00 91 17 109/78 (88) 96 03/06/18 10:00 94 19 117/78 (91) 97 03/06/18 09:49 91 114/75 03/06/18 09:48 91 03/06/18 09:06 96 18 99 03/06/18 09:00 92 21 120/71 (87) 97 03/06/18 08:29 95 17 99 03/06/18 08:02 87 27 99 03/06/18 08:00 87 03/06/18 08:00 99.0 88 18 118/73 (88) 98 03/06/18 08:00 Bi-pap 03/06/18 07:33 Bi-pap 60 03/06/18 07:33 100 Bi-pap 60 03/06/18 07:30 86 21 Bi-pap 60 03/06/18 07:30 86 21 100 Full Face 60 03/06/18 07:00 89 20 114/75 (88) 100 03/06/18 06:00 77 18 114/62 (79) 99 03/06/18 05:23 94 18 100 Full Face 60 03/06/18 05:09 114/76 03/06/18 05:09 81 114/76 03/06/18 05:00 94 18 114/76 (89) 99 03/06/18 04:00 81 03/06/18 04:00 Bi-pap 10.0 03/06/18 04:00 99.3 91 21 118/71 (87) 99 03/06/18 03:00 92 18 100 Full Face 70 03/06/18 03:00 92 22 122/104 (110) 100 03/06/18 02:00 91 22 119/84 (96) 100 03/06/18 01:00 82 23 123/81 (95) 100 03/06/18 00:53 82 28 100 Full Face 80 03/06/18 00:00 Bi-pap 10.0 03/06/18 00:00 88 03/06/18 00:00 98.6 88 37 103/83 (90) 100 03/05/18 23:38 87 35 98 Full Face 80 Intake and Output 03/05/18 03/06/18 19:00 07:00 Output Total 600 ml 1170 ml Balance -600 ml -1170 ml Output Urine Total 600 ml 1170 ml 2D Echo: LVEF 25%, Bi-atrial enlargement, Severe MR, RVSP 24 mmHg, RAP 15 mmHg Laboratory Tests Test 03/06/18 04:20 03/06/18 07:50 03/06/18 21:50 White Blood Count 13.4 K/UL (4.8-10.8) #H Red Blood Count 6.07 M/UL (4.70-6.10) Hemoglobin 15.9 G/DL (14.2-18.0) Hematocrit 49.8 % (42.0-52.0) Mean Corpuscular Volume 82 FL (80-99) Mean Corpuscular Hemoglobin 26.3 PG (27.0-31.0) L Mean Corpuscular Hemoglobin Concent 32.0 G/DL (32.0-36.0) Red Cell Distribution Width 18.2 % (11.6-14.8) H Platelet Count 239 K/UL (150-450) Mean Platelet Volume 7.5 FL (6.5-10.1) Neutrophils (%) (Auto) 84.0 % (45.0-75.0) H Lymphocytes (%) (Auto) 7.2 % (20.0-45.0) L Monocytes (%) (Auto) 7.6 % (1.0-10.0) Eosinophils (%) (Auto) 0.2 % (0.0-3.0) Basophils (%) (Auto) 0.9 % (0.0-2.0) Sodium Level 155 MMOL/L (136-145) H Potassium Level 3.7 MMOL/L (3.5-5.1) Chloride Level 118 MMOL/L (98-107) H Carbon Dioxide Level 29 MMOL/L (21-32) Anion Gap 8 mmol/L (5-15) Blood Urea Nitrogen 41 mg/dL (7-18) H Creatinine 1.3 MG/DL (0.55-1.30) Estimat Glomerular Filtration Rate 57.3 mL/min (>60) Glucose Level 208 MG/DL (74-106) H Hemoglobin A1c 9.2 % (4.3-6.0) H Calcium Level 8.7 MG/DL (8.5-10.1) Phosphorus Level 3.2 MG/DL (2.5-4.9) Magnesium Level 1.9 MG/DL (1.8-2.4) Total Bilirubin 2.8 MG/DL (0.2-1.0) H Direct Bilirubin 1.4 MG/DL (0.0-0.3) H Aspartate Amino Transf (AST/SGOT) 96 U/L (15-37) H Alanine Aminotransferase (ALT/SGPT) 284 U/L (12-78) H Alkaline Phosphatase 194 U/L (46-116) H Total Protein 6.8 G/DL (6.4-8.2) Albumin 2.2 G/DL (3.4-5.0) L Globulin 4.6 g/dL Albumin/Globulin Ratio 0.5 (1.0-2.7) L Vitamin B12 Level 837 PG/ML (193-986) Vitamin D 25-Hydroxy Pending 25-Hydroxy Vitamin D2 Pending 25-Hydroxy Vitamin D3 Pending Folate 18.6 NG/ML (8.6-58.9) Thyroid Stimulating Hormone (TSH) 1.352 uiU/mL (0.358-3.740) Rapid Plasma Reagin Pending Arterial Blood pH 7.493 (7.350-7.450) Arterial Blood Partial Pressure CO2 33.5 mmHg (35.0-45.0) L Arterial Blood Partial Pressure O2 143.5 mmHg (75.0-100.0) H Arterial Blood HCO3 25.1 mmol/L (22.0-26.0) Arterial Blood Oxygen Saturation 98.7 % (95-100) Arterial Blood Base Excess 2.5 (-2-2) H Janes Test Positive Vancomycin Level Trough 17.2 ug/mL (5.0-12.0) H Objective HEENT: Atraumatic and normocephalic. Anicteric. Pupils are equal, round, and reactive to light and accommodation. Extraocular muscles intact. Altered. NECK: JVP elevated about 5cm. No carotid bruits. Carotid upstrokes 2+ bilaterally. CARDIOVASCULAR: Normal S1, S2. Irregularly irregular rhythm. 2/6 Holosystolic murmur, gallop, or rub. LUNGS: Diminished BS both lungs. ABDOMEN: Soft, nontender, and nondistended. No hepatosplenomegaly. Positive bowel sounds. EXTREMITIES: There is 1+ bilateral lower extremity edema with ulcerations. Sudarshan Stuart MD Mar 06, 2018 23:18
[2018-03-06] MEDS: Vancomycin 750mg/NS 250ml 250 ML IVPB SCH (23:48)
[2018-03-07] VITALS: BP 145/86
[2018-03-07] MEDS ORDERED: dilTIAZem HCl 30mg tab ORAL SCH
[2018-03-07] MEDS: HydrALAZINE 25mg tab ORAL SCH ×5 (00:38→23:42)
[2018-03-07] MEDS: dilTIAZem HCl 30mg tab ORAL SCH ×2 (00:39→06:07)
[2018-03-07 04:00] VITALS: BP 150/93
[2018-03-07 05:23] LABS: BASOPHILS % (AUTO) 0.3 % (0.0-2.0); EOSINOPHILS % (AUTO) 0.3 % (0.0-3.0); HEMATOCRIT 49.9 % (42.0-52.0); HEMOGLOBIN 15.7 G/DL (14.2-18.0); MEAN CORPUSCULAR VOLUME 84 FL (80-99); MONOCYTES % (AUTO) 7.6 % (1.0-10.0); NEUTROPHILS % (AUTO) 80.8 % (45.0-75.0); PLATELET COUNT 220 K/UL (150-450); RED BLOOD COUNT 5.96 M/UL (4.70-6.10); RED CELL DISTRIBUTION WIDTH 17.8 % (11.6-14.8)
[2018-03-07] MEDS ORDERED: dilTIAZem HCl 90mg tab ORAL SCH (06:00)
[2018-03-07] MEDS: NovoLOG Insulin Flexpen SUBQ SCH ×4 (06:08→20:22)
[2018-03-07 06:11] LABS: ANION GAP 10 mmol/L (5-15); BLOOD UREA NITROGEN 36 mg/dL (7-18); CALCIUM 8.7 MG/DL (8.5-10.1); CARBON DIOXIDE 28 MMOL/L (21-32); CHLORIDE 120 MMOL/L (98-107); CREATININE 1.3 MG/DL (0.55-1.30); POTASSIUM 3.7 MMOL/L (3.5-5.1); SODIUM 158 MMOL/L (136-145)
[2018-03-07 06:15] LABS: ALANINE AMINOTRANSFERASE 166 U/L (12-78); ALBUMIN 2.1 G/DL (3.4-5.0); ALKALINE PHOSPHATASE 180 U/L (46-116); ASPARTATE AMINO TRANSFERASE 40 U/L (15-37); BILIRUBIN,DIRECT 1.2 MG/DL (0.0-0.3); BILIRUBIN,TOTAL 2.8 MG/DL (0.2-1.0)
[2018-03-07 08:00] VITALS: BP 126/78
[2018-03-07] MEDS: Digoxin 0.5mg/2ml Inj IVP SCH (09:23)
[2018-03-07] MEDS: Furosemide 40mg tab ORAL SCH (09:24)
[2018-03-07] MEDS: Carvedilol 25mg Tab ORAL SCH ×2 (09:24→20:19)
[2018-03-07] MEDS: Eliquis 2.5mg tablet ORAL SCH ×2 (09:24→20:19)
--- NOTE | 2018-03-07 09:57 | General Progress Note ---
Assessment/Plan Problem List: (1) A-fib ICD Codes: I48.91 - Unspecified atrial fibrillation SNOMED: 02890728 (2) Diabetes ICD Codes: E11.9 - Type 2 diabetes mellitus without complications SNOMED: 71951348 (3) Abnormal LFTs ICD Codes: R94.5 - Abnormal results of liver function studies SNOMED: 418012928 (4) Rapid atrial fibrillation ICD Codes: I48.91 - Unspecified atrial fibrillation SNOMED: 502787454 (5) Drug abuse ICD Codes: F19.10 - Other psychoactive substance abuse, uncomplicated SNOMED: 55205381 Assessment/Plan us reviewed neg hepatitis panel repeat LFTS>> trending down Subjective Allergies: Coded Allergies: No Known Allergies (Unverified , 02/16/18) Objective Last 24 Hour Vital Signs Date Time Temp Pulse Resp B/P (MAP) Pulse Ox O2 Delivery O2 Flow Rate FiO2 03/07/18 09:24 87 126/78 03/07/18 09:23 87 03/07/18 08:00 99.2 87 21 126/78 (94) 95 03/07/18 06:07 93 150/93 03/07/18 06:07 150/93 03/07/18 04:00 88 03/07/18 04:00 99.8 93 18 150/93 (112) 96 03/07/18 04:00 Venturi Mask 6.0 03/07/18 01:09 99.7 03/07/18 00:39 102 145/86 03/07/18 00:38 145/86 03/07/18 00:00 102 03/07/18 00:00 Venturi Mask 6.0 03/07/18 00:00 101.7 97 18 145/86 (105) 92 03/06/18 20:39 105 140/97 03/06/18 20:00 102 03/06/18 20:00 Venturi Mask 6.0 03/06/18 20:00 97.7 100 18 140/97 (111) 95 03/06/18 19:55 Venturi Mask 6.0 35 03/06/18 19:55 97 Venturi Mask 6.0 35 03/06/18 18:08 130/87 03/06/18 18:08 104 130/87 03/06/18 16:00 99.1 102 18 130/87 (101) 99 03/06/18 16:00 Venturi Mask 6.0 03/06/18 16:00 97 03/06/18 12:00 82 03/06/18 12:00 Venturi Mask 6.0 03/06/18 11:13 109/78 03/06/18 11:13 89 109/78 03/06/18 11:06 89 19 96 03/06/18 11:00 91 17 109/78 (88) 96 03/06/18 10:00 94 19 117/78 (91) 97 Intake and Output 03/06/18 03/07/18 19:00 07:00 Intake Total 1339.916 ml 1200 ml Output Total 2200 ml 1100 ml Balance -860.084 ml 100 ml Free Water 500 ml 500 ml IV Total 449.916 ml Tube Feeding 390 ml 700 ml Output Urine Total 2200 ml 1100 ml Laboratory Tests 03/06/18 21:50: Vancomycin Level Trough 17.2H 03/07/18 03:25: White Blood Count 11.0H, Red Blood Count 5.96, Hemoglobin 15.7, Hematocrit 49.9 , Mean Corpuscular Volume 84, Mean Corpuscular Hemoglobin 26.4L, Mean Corpuscular Hemoglobin Concent 31.5L, Red Cell Distribution Width 17.8H, Platelet Count 220, Mean Platelet Volume 7.2, Neutrophils (%) (Auto) 80.8H, Lymphocytes (%) (Auto) 11.0L, Monocytes (%) (Auto) 7.6, Eosinophils (%) (Auto) 0.3, Basophils (%) (Auto) 0.3, Sodium Level 158H, Potassium Level 3.7, Chloride Level 120H, Carbon Dioxide Level 28, Anion Gap 10, Blood Urea Nitrogen 36H, Creatinine 1.3, Estimat Glomerular Filtration Rate 57.3, Glucose Level 250H, Calcium Level 8.7, Total Bilirubin 2.8H, Direct Bilirubin 1.2H, Aspartate Amino Transf (AST/SGOT) 40H, Alanine Aminotransferase (ALT/SGPT) 166H, Alkaline Phosphatase 180H, Total Protein 6.5, Albumin 2.1L, Digoxin Level 0.7 Height (Feet): 6 Height (Inches): 0.00 Weight (Pounds): 270 General Appearance: no apparent distress EENT: normal ENT inspection Neck: supple Cardiovascular: normal rate Respiratory/Chest: decreased breath sounds Abdomen: normal bowel sounds, non tender, soft Extremities: non-tender Khalif Noe MD Mar 07, 2018 09:57
--- NOTE | 2018-03-07 10:06 | Diagnostic Imaging Report ---
Indication: Post nasogastric tube placed Technique: One view of the upper abdomen Comparison: 03/03/2018 Findings: Interim placement of a nasogastric tube, tip coiled in the gastric fundus in satisfactory position. There are a few mildly dilated mid abdominal small bowel loops. Impression: Satisfactory nasogastric intubation This agrees with the preliminary interpretation provided overnight by [facility] teleradiology service.
[2018-03-07] MEDS: Piperacillin/Tazobactam 3.375 GM in NS 110 ML IVPB SCH ×3 (11:33→20:18)
[2018-03-07] MEDS: Vancomycin 750mg/NS 250ml 250 ML IVPB SCH ×2 (11:33→22:00)
[2018-03-07] MEDS: dilTIAZem HCl 90mg tab ORAL SCH ×3 (11:45→23:41)
[2018-03-07 12:00] VITALS: BP 134/71
--- NOTE | 2018-03-07 12:05 | Pulmonology Progress Note ---
Assessment/Plan Problems: (1) Acute encephalopathy (2) Diastolic CHF, chronic (3) Rapid atrial fibrillation (4) Diabetes (5) Cellulitis Assessment/Plan CT head pending f/u cardio recommendation f/u cultures iv abx EEG. Subjective ROS Limited/Unobtainable: Yes Interval Events: sedated Constitutional: Reports: no symptoms HEENT: Repors: no symptoms Allergies: Coded Allergies: No Known Allergies (Unverified , 02/16/18) Objective Last 24 Hour Vital Signs Date Time Temp Pulse Resp B/P (MAP) Pulse Ox O2 Delivery O2 Flow Rate FiO2 03/07/18 11:45 88 134/74 03/07/18 11:44 134/74 03/07/18 09:24 87 126/78 03/07/18 09:23 87 03/07/18 08:00 99.2 87 21 126/78 (94) 95 03/07/18 08:00 77 03/07/18 06:07 93 150/93 03/07/18 06:07 150/93 03/07/18 04:00 88 03/07/18 04:00 99.8 93 18 150/93 (112) 96 03/07/18 04:00 Venturi Mask 6.0 03/07/18 01:09 99.7 03/07/18 00:39 102 145/86 03/07/18 00:38 145/86 03/07/18 00:00 102 03/07/18 00:00 Venturi Mask 6.0 03/07/18 00:00 101.7 97 18 145/86 (105) 92 03/06/18 20:39 105 140/97 03/06/18 20:00 102 03/06/18 20:00 Venturi Mask 6.0 03/06/18 20:00 97.7 100 18 140/97 (111) 95 03/06/18 19:55 Venturi Mask 6.0 35 03/06/18 19:55 97 Venturi Mask 6.0 35 03/06/18 18:08 130/87 03/06/18 18:08 104 130/87 03/06/18 16:00 99.1 102 18 130/87 (101) 99 03/06/18 16:00 Venturi Mask 6.0 03/06/18 16:00 97 Intake and Output 03/06/18 03/07/18 19:00 07:00 Intake Total 1339.916 ml 1200 ml Output Total 2200 ml 1100 ml Balance -860.084 ml 100 ml Free Water 500 ml 500 ml IV Total 449.916 ml Tube Feeding 390 ml 700 ml Output Urine Total 2200 ml 1100 ml General Appearance: WD/WN HEENT: normocephalic, atraumatic Respiratory/Chest: chest wall non-tender, lungs clear Cardiovascular: normal rate, regular rhythm Abdomen: normal bowel sounds, soft, non tender Microbiology Date/Time Source Procedure Growth Status 03/06/18 16:30 Sputum Induced Gram Stain - Final Resulted 03/06/18 16:30 Sputum Induced Sputum Culture Pending Resulted Laboratory Tests 03/06/18 21:50: Vancomycin Level Trough 17.2H 03/07/18 03:25: White Blood Count 11.0H, Red Blood Count 5.96, Hemoglobin 15.7, Hematocrit 49.9 , Mean Corpuscular Volume 84, Mean Corpuscular Hemoglobin 26.4L, Mean Corpuscular Hemoglobin Concent 31.5L, Red Cell Distribution Width 17.8H, Platelet Count 220, Mean Platelet Volume 7.2, Neutrophils (%) (Auto) 80.8H, Lymphocytes (%) (Auto) 11.0L, Monocytes (%) (Auto) 7.6, Eosinophils (%) (Auto) 0.3, Basophils (%) (Auto) 0.3, Sodium Level 158H, Potassium Level 3.7, Chloride Level 120H, Carbon Dioxide Level 28, Anion Gap 10, Blood Urea Nitrogen 36H, Creatinine 1.3, Estimat Glomerular Filtration Rate 57.3, Glucose Level 250H, Calcium Level 8.7, Total Bilirubin 2.8H, Direct Bilirubin 1.2H, Aspartate Amino Transf (AST/SGOT) 40H, Alanine Aminotransferase (ALT/SGPT) 166H, Alkaline Phosphatase 180H, Total Protein 6.5, Albumin 2.1L, Digoxin Level 0.7 Current Medications Medications (Trade) Dose Ordered Sig/Roseline Route PRN Reason Start Time Stop Time Status Last Admin Dose Admin Acetaminophen (Tylenol) 650 mg Q4H PRN ORAL fever (temp>100.5F) 03/06/18 19:45 03/30/18 19:44 03/07/18 00:39 Apixaban (Eliquis) 5 mg Q12HR ORAL 03/06/18 21:00 04/04/18 20:59 03/07/18 09:24 Carvedilol (Coreg) 25 mg EVERY 12 HOURS ORAL 03/06/18 21:00 04/02/18 20:59 03/07/18 09:24 Chlorhexidine Gluconate (Ashley-Hex 2%) 1 applic DAILY@2000 TOPIC 03/06/18 20:00 04/01/18 19:59 03/06/18 20:38 Dextrose (Dextrose 50%) 25 ml Q30M PRN IV Hypoglycemia 03/06/18 20:00 03/30/18 13:59 Dextrose (Dextrose 50%) 50 ml Q30M PRN IV Hypoglycemia 03/06/18 20:00 03/30/18 13:59 Digoxin (Lanoxin) 0.125 mg DAILY IVP 03/07/18 09:00 04/02/18 14:21 03/07/18 09:23 Diltiazem HCl (Cardizem) 90 mg EVERY 6 HOURS ORAL 03/07/18 12:00 04/06/18 11:59 03/07/18 11:45 Furosemide (Lasix) 40 mg DAILY ORAL 03/07/18 09:00 04/04/18 08:59 03/07/18 09:24 Haloperidol Lactate (Haldol) 5 mg Q4H PRN IM Agitation 03/06/18 19:45 03/31/18 19:44 Hydralazine HCl (Apresoline) 25 mg Q6HR ORAL 03/07/18 00:00 04/04/18 18:21 03/07/18 11:44 Insulin Aspart (NovoLOG) BEFORE MEALS AND HS SUBQ 03/06/18 21:00 03/31/18 16:29 03/07/18 11:59 Lorazepam (Ativan 2mg/ml 1ml) 1 mg Q4H PRN IV For Anxiety 03/06/18 19:45 03/08/18 19:44 Metoprolol Tartrate (Lopressor) 10 mg Q1H PRN IVP Heart rate >120 per minute 03/06/18 19:45 03/31/18 19:44 Morphine Sulfate (Morphine Sulfate) 2 mg Q4H PRN IVP Moderate Pain (Pain Scale 4-6) 03/06/18 19:45 03/07/18 19:44 Nitroglycerin (Ntg) 0.4 mg Q5M PRN SL Prn Chest Pain 03/06/18 19:45 03/30/18 18:20 Ondansetron HCl (Zofran) 4 mg Q6H PRN IVP Nausea & Vomiting 03/06/18 19:45 04/05/18 19:44 Piperacillin Sod/ Tazobactam Sod 3.375 gm/Sodium Chloride 110 ml @ 27.5 mls/hr EVERY 8 HOURS IVPB 03/06/18 22:00 03/11/18 21:59 03/07/18 11:33 Polyethylene Glycol (Miralax) 17 gm DAILYPRN PRN ORAL Constipation 03/06/18 19:45 04/05/18 19:44 Temazepam (Restoril) 15 mg HSPRN PRN ORAL Insomnia 03/06/18 19:45 03/13/18 19:44 Vancomycin HCl (Vanco rx to dose) 1 ea DAILY PRN MISC rx protocol 03/06/18 19:45 04/05/18 19:44 Vancomycin/Sodium Chloride 250 ml @ 167 mls/hr Q12H IVPB 03/06/18 23:00 03/11/18 22:59 03/07/18 11:33 Sunita Sahni MD Mar 07, 2018 12:05
--- NOTE | 2018-03-07 12:57 | General Surgery Progress Note ---
General Surgery-Progress Note Subjective Additional Comments still can be combative at times. leukocytosis improved Objective Last 24 Hour Vital Signs Date Time Temp Pulse Resp B/P (MAP) Pulse Ox O2 Delivery O2 Flow Rate FiO2 03/07/18 11:45 88 134/74 03/07/18 11:44 134/74 03/07/18 09:24 87 126/78 03/07/18 09:23 87 03/07/18 08:00 99.2 87 21 126/78 (94) 95 03/07/18 08:00 77 03/07/18 06:07 93 150/93 03/07/18 06:07 150/93 03/07/18 04:00 88 03/07/18 04:00 99.8 93 18 150/93 (112) 96 03/07/18 04:00 Venturi Mask 6.0 03/07/18 01:09 99.7 03/07/18 00:39 102 145/86 03/07/18 00:38 145/86 03/07/18 00:00 102 03/07/18 00:00 Venturi Mask 6.0 03/07/18 00:00 101.7 97 18 145/86 (105) 92 03/06/18 20:39 105 140/97 03/06/18 20:00 102 03/06/18 20:00 Venturi Mask 6.0 03/06/18 20:00 97.7 100 18 140/97 (111) 95 03/06/18 19:55 Venturi Mask 6.0 35 03/06/18 19:55 97 Venturi Mask 6.0 35 03/06/18 18:08 130/87 03/06/18 18:08 104 130/87 03/06/18 16:00 99.1 102 18 130/87 (101) 99 03/06/18 16:00 Venturi Mask 6.0 03/06/18 16:00 97 I&O Intake and Output 03/06/18 03/07/18 19:00 07:00 Intake Total 1339.916 ml 1200 ml Output Total 2200 ml 1100 ml Balance -860.084 ml 100 ml Free Water 500 ml 500 ml IV Total 449.916 ml Tube Feeding 390 ml 700 ml Output Urine Total 2200 ml 1100 ml Dressing: saturated Wound: other Drains: other Cardiovascular: RSR Respiratory: clear Abdomen: soft, flat, non-tender, present bowel sounds Extremities: other Laboratory Tests Test 03/06/18 21:50 03/07/18 03:25 Vancomycin Level Trough 17.2 ug/mL (5.0-12.0) H White Blood Count 11.0 K/UL (4.8-10.8) H Red Blood Count 5.96 M/UL (4.70-6.10) Hemoglobin 15.7 G/DL (14.2-18.0) Hematocrit 49.9 % (42.0-52.0) Mean Corpuscular Volume 84 FL (80-99) Mean Corpuscular Hemoglobin 26.4 PG (27.0-31.0) L Mean Corpuscular Hemoglobin Concent 31.5 G/DL (32.0-36.0) L Red Cell Distribution Width 17.8 % (11.6-14.8) H Platelet Count 220 K/UL (150-450) Mean Platelet Volume 7.2 FL (6.5-10.1) Neutrophils (%) (Auto) 80.8 % (45.0-75.0) H Lymphocytes (%) (Auto) 11.0 % (20.0-45.0) L Monocytes (%) (Auto) 7.6 % (1.0-10.0) Eosinophils (%) (Auto) 0.3 % (0.0-3.0) Basophils (%) (Auto) 0.3 % (0.0-2.0) Sodium Level 158 MMOL/L (136-145) H Potassium Level 3.7 MMOL/L (3.5-5.1) Chloride Level 120 MMOL/L (98-107) H Carbon Dioxide Level 28 MMOL/L (21-32) Anion Gap 10 mmol/L (5-15) Blood Urea Nitrogen 36 mg/dL (7-18) H Creatinine 1.3 MG/DL (0.55-1.30) Estimat Glomerular Filtration Rate 57.3 mL/min (>60) Glucose Level 250 MG/DL (74-106) H Calcium Level 8.7 MG/DL (8.5-10.1) Total Bilirubin 2.8 MG/DL (0.2-1.0) H Direct Bilirubin 1.2 MG/DL (0.0-0.3) H Aspartate Amino Transf (AST/SGOT) 40 U/L (15-37) H Alanine Aminotransferase (ALT/SGPT) 166 U/L (12-78) H Alkaline Phosphatase 180 U/L (46-116) H Total Protein 6.5 G/DL (6.4-8.2) Albumin 2.1 G/DL (3.4-5.0) L Digoxin Level 0.7 NG/ML (0.5-2.0) Plan Problems: (1) Abnormal LFTs Assessment & Plan: will obtain hepatitis panel US abdomen - Cholelithiasis; Borderline gallbladder wall thickening, could indicate early acute cholecystitis changes. Consider hepatobiliary nuclear scan if there is high clinical suspicion Negative for dilated ducts will monitor clinically for now HIDA noted hep panel negative hiv neg LFTs noted / improving no surgical intervention necessary at this time. -unlikely cholecystitis. likely contracted GB okay for diet d/c planning appreciate GI input trend labs (2) Cellulitis Assessment & Plan: chronic bilateral lower extremity wounds / ulcers acute on chronic cellulitis no abscess noted serous drainage multiple wounds that seem traumatic like cuts some small ulcers see wound photos for details -IV Abx as per ID -Keep legs elevated -apply skin protectant, hydrogel, non adherent dressings, and wrap -okay to ambulate. -venous and arterial studies ordered Garth Cornelius Mar 07, 2018 12:57
--- NOTE | 2018-03-07 13:54 | General Progress Note ---
Assessment/Plan Problem List: (1) Diabetes ICD Codes: E11.9 - Type 2 diabetes mellitus without complications SNOMED: 95869238 (2) Cellulitis ICD Codes: L03.90 - Cellulitis, unspecified SNOMED: 759646364 (3) Acute renal failure ICD Codes: N17.9 - Acute kidney failure, unspecified SNOMED: 05261841 (4) Rapid atrial fibrillation ICD Codes: I48.91 - Unspecified atrial fibrillation SNOMED: 727562060 Status: stable, progressing Assessment/Plan o2 pulm tx cardio f/u abx cbc bmp am Subjective Constitutional: Reports: weakness Allergies: Coded Allergies: No Known Allergies (Unverified , 02/16/18) All Systems: reviewed and negative except above Subjective o2 mask ng sleeping Objective Last 24 Hour Vital Signs Date Time Temp Pulse Resp B/P (MAP) Pulse Ox O2 Delivery O2 Flow Rate FiO2 03/07/18 12:00 97.7 88 19 134/71 (92) 92 03/07/18 12:00 87 03/07/18 11:45 88 134/74 03/07/18 11:44 134/74 03/07/18 09:24 87 126/78 03/07/18 09:23 87 03/07/18 08:00 99.2 87 21 126/78 (94) 95 03/07/18 08:00 77 03/07/18 06:07 93 150/93 03/07/18 06:07 150/93 03/07/18 04:00 88 03/07/18 04:00 99.8 93 18 150/93 (112) 96 03/07/18 04:00 Venturi Mask 6.0 03/07/18 01:09 99.7 03/07/18 00:39 102 145/86 03/07/18 00:38 145/86 03/07/18 00:00 102 03/07/18 00:00 Venturi Mask 6.0 03/07/18 00:00 101.7 97 18 145/86 (105) 92 03/06/18 20:39 105 140/97 03/06/18 20:00 102 03/06/18 20:00 Venturi Mask 6.0 03/06/18 20:00 97.7 100 18 140/97 (111) 95 03/06/18 19:55 Venturi Mask 6.0 35 03/06/18 19:55 97 Venturi Mask 6.0 35 03/06/18 18:08 130/87 03/06/18 18:08 104 130/87 03/06/18 16:00 99.1 102 18 130/87 (101) 99 03/06/18 16:00 Venturi Mask 6.0 03/06/18 16:00 97 Intake and Output 03/06/18 03/07/18 19:00 07:00 Intake Total 1339.916 ml 1200 ml Output Total 2200 ml 1100 ml Balance -860.084 ml 100 ml Free Water 500 ml 500 ml IV Total 449.916 ml Tube Feeding 390 ml 700 ml Output Urine Total 2200 ml 1100 ml Laboratory Tests 03/06/18 21:50: Vancomycin Level Trough 17.2H 03/07/18 03:25: White Blood Count 11.0H, Red Blood Count 5.96, Hemoglobin 15.7, Hematocrit 49.9 , Mean Corpuscular Volume 84, Mean Corpuscular Hemoglobin 26.4L, Mean Corpuscular Hemoglobin Concent 31.5L, Red Cell Distribution Width 17.8H, Platelet Count 220, Mean Platelet Volume 7.2, Neutrophils (%) (Auto) 80.8H, Lymphocytes (%) (Auto) 11.0L, Monocytes (%) (Auto) 7.6, Eosinophils (%) (Auto) 0.3, Basophils (%) (Auto) 0.3, Sodium Level 158H, Potassium Level 3.7, Chloride Level 120H, Carbon Dioxide Level 28, Anion Gap 10, Blood Urea Nitrogen 36H, Creatinine 1.3, Estimat Glomerular Filtration Rate 57.3, Glucose Level 250H, Calcium Level 8.7, Total Bilirubin 2.8H, Direct Bilirubin 1.2H, Aspartate Amino Transf (AST/SGOT) 40H, Alanine Aminotransferase (ALT/SGPT) 166H, Alkaline Phosphatase 180H, Total Protein 6.5, Albumin 2.1L, Digoxin Level 0.7 Height (Feet): 6 Height (Inches): 0.00 Weight (Pounds): 270 General Appearance: lethargic EENT: normal ENT inspection Neck: normal alignment Cardiovascular: normal peripheral pulses, normal rate, regular rhythm Respiratory/Chest: chest wall non-tender, decreased breath sounds Abdomen: normal bowel sounds, non tender, soft Extremities: normal inspection Edema: no edema noted Arm (L), no edema noted Arm (R), no edema noted Leg (L), no edema noted Leg (R), no edema noted Pedal (L), no edema noted Pedal (R), no edema noted Generalized Neurologic: motor weakness Skin: normal pigmentation, warm/dry Mick Garcia DO Mar 07, 2018 13:54
--- NOTE | 2018-03-07 14:32 | Infectious Diseases Prog Note ---
Assessment/Plan Assessment/Plan Assessment: Acute respiratory failure- due to Afib w/ RVR- Probable Asp PNA -sp cx p -CXR: Improved aeration of the right lung, presumably representing improving atelectasis. Right lower lobe infiltrate. There may also be pleural fluid on the right. Bilateral interstitial disease. Probably on the basis of pulmonary edema. However, considerable central bronchial wall thickening suggests a significant chronic component B/l LE purulent cellulitis- legs with scratches (self inflicted) -wound cx MRSA -L foot tibia/fibula xray: No acute process -R foot tibia/fibula xray: No acute bony trauma Fever, improving Mild leukocytosis, recurrent, imrpovng Afib w/ RVR ElevatedLFTs, improving - HIDA inconclusive but low prob for acute cholecysitis -HIDA: Questionable very small tracer collection in the region of the gallbladder fossa on delayed images, could represent partial filling of a nondistended gallbladder but this is not conclusive. Acute cholecystitis doubtful but not conclusively excluded based on these images and prior ultrasound, which showed a nondistended gallbladder. Patent common bile duct -Abd US: Cholelithiasis. Borderline gallbladder wall thickening, could indicate early acute cholecystitis changes. Consider hepatobiliary nuclear scan if there is high clinical suspicion. Negative for dilated ducts Incidental finding bilateral pleural effusions -acute hep panel, HIV sc neg ZHAO, resolving DM2 HTN CHF Schizoaffective disorder Plan: -Continue empiric IV Vancomycin #8 and ZOsyn #2 (abx d#3) to cover for possible PNA/aspiration in view of worsening resp status, fevers and leukocytosis -03/06 SP Ceftriaxone #2 -03/03 SP Ancef #2 -03/01 SP Cefepime #2 -f/u cx -Monitor CBC/CMP, temperatures -wound care -Sx, GI f/u Thank you for this consultation. Will continue to follow along with you. Discussed with RN. Subjective Allergies: Coded Allergies: No Known Allergies (Unverified , 02/16/18) Subjective transferred out of iCU on VM at 6L wbc improving sp cx p Objective Vital Signs Last 24 Hour Vital Signs Date Time Temp Pulse Resp B/P (MAP) Pulse Ox O2 Delivery O2 Flow Rate FiO2 03/07/18 12:00 97.7 88 19 134/71 (92) 92 03/07/18 12:00 Venturi Mask 6.0 12/5/18 12:00 87 03/07/18 11:45 88 134/74 03/07/18 11:44 134/74 03/07/18 09:24 87 126/78 03/07/18 09:23 87 03/07/18 08:00 99.2 87 21 126/78 (94) 95 03/07/18 08:00 77 03/07/18 08:00 Venturi Mask 6.0 03/07/18 06:07 93 150/93 03/07/18 06:07 150/93 03/07/18 04:00 88 03/07/18 04:00 99.8 93 18 150/93 (112) 96 03/07/18 04:00 Venturi Mask 6.0 03/07/18 01:09 99.7 03/07/18 00:39 102 145/86 03/07/18 00:38 145/86 03/07/18 00:00 102 03/07/18 00:00 Venturi Mask 6.0 03/07/18 00:00 101.7 97 18 145/86 (105) 92 03/06/18 20:39 105 140/97 03/06/18 20:00 102 03/06/18 20:00 Venturi Mask 6.0 03/06/18 20:00 97.7 100 18 140/97 (111) 95 03/06/18 19:55 Venturi Mask 6.0 35 03/06/18 19:55 97 Venturi Mask 6.0 35 03/06/18 18:08 130/87 03/06/18 18:08 104 130/87 03/06/18 16:00 99.1 102 18 130/87 (101) 99 03/06/18 16:00 Venturi Mask 6.0 03/06/18 16:00 97 Height (Feet): 6 Height (Inches): 0.00 Weight (Pounds): 270 Objective General Appearance: WD/WN Lines, tubes and drains: peripheral HEENT: normocephalic, atraumatic Neck: non-tender, normal alignment Respiratory/Chest: chest wall non-tender, lungs clear Breasts: no masses Cardiovascular/Chest: normal peripheral pulses Abdomen: normal bowel sounds, non tender Extremities: B/l leg erythema, swelling, with scratches and some minimal drainage Microbiology Date/Time Source Procedure Growth Status 03/06/18 16:30 Sputum Induced Gram Stain - Final Resulted 03/06/18 16:30 Sputum Induced Sputum Culture Pending Resulted Laboratory Tests Test 03/06/18 21:50 03/07/18 03:25 Vancomycin Level Trough 17.2 ug/mL (5.0-12.0) H White Blood Count 11.0 K/UL (4.8-10.8) H Red Blood Count 5.96 M/UL (4.70-6.10) Hemoglobin 15.7 G/DL (14.2-18.0) Hematocrit 49.9 % (42.0-52.0) Mean Corpuscular Volume 84 FL (80-99) Mean Corpuscular Hemoglobin 26.4 PG (27.0-31.0) L Mean Corpuscular Hemoglobin Concent 31.5 G/DL (32.0-36.0) L Red Cell Distribution Width 17.8 % (11.6-14.8) H Platelet Count 220 K/UL (150-450) Mean Platelet Volume 7.2 FL (6.5-10.1) Neutrophils (%) (Auto) 80.8 % (45.0-75.0) H Lymphocytes (%) (Auto) 11.0 % (20.0-45.0) L Monocytes (%) (Auto) 7.6 % (1.0-10.0) Eosinophils (%) (Auto) 0.3 % (0.0-3.0) Basophils (%) (Auto) 0.3 % (0.0-2.0) Sodium Level 158 MMOL/L (136-145) H Potassium Level 3.7 MMOL/L (3.5-5.1) Chloride Level 120 MMOL/L (98-107) H Carbon Dioxide Level 28 MMOL/L (21-32) Anion Gap 10 mmol/L (5-15) Blood Urea Nitrogen 36 mg/dL (7-18) H Creatinine 1.3 MG/DL (0.55-1.30) Estimat Glomerular Filtration Rate 57.3 mL/min (>60) Glucose Level 250 MG/DL (74-106) H Calcium Level 8.7 MG/DL (8.5-10.1) Total Bilirubin 2.8 MG/DL (0.2-1.0) H Direct Bilirubin 1.2 MG/DL (0.0-0.3) H Aspartate Amino Transf (AST/SGOT) 40 U/L (15-37) H Alanine Aminotransferase (ALT/SGPT) 166 U/L (12-78) H Alkaline Phosphatase 180 U/L (46-116) H Total Protein 6.5 G/DL (6.4-8.2) Albumin 2.1 G/DL (3.4-5.0) L Digoxin Level 0.7 NG/ML (0.5-2.0) Current Medications Medications (Trade) Dose Ordered Sig/Roseline Route PRN Reason Start Time Stop Time Status Last Admin Dose Admin Acetaminophen (Tylenol) 650 mg Q4H PRN ORAL fever (temp>100.5F) 03/06/18 19:45 03/30/18 19:44 03/07/18 00:39 Apixaban (Eliquis) 5 mg Q12HR ORAL 03/06/18 21:00 04/04/18 20:59 03/07/18 09:24 Carvedilol (Coreg) 25 mg EVERY 12 HOURS ORAL 03/06/18 21:00 04/02/18 20:59 03/07/18 09:24 Chlorhexidine Gluconate (Ashley-Hex 2%) 1 applic DAILY@1999 TOPIC 03/06/18 20:00 04/01/18 19:59 03/06/18 20:38 Dextrose (Dextrose 50%) 25 ml Q30M PRN IV Hypoglycemia 03/06/18 20:00 03/30/18 13:59 Dextrose (Dextrose 50%) 50 ml Q30M PRN IV Hypoglycemia 03/06/18 20:00 03/30/18 13:59 Digoxin (Lanoxin) 0.125 mg DAILY IVP 03/07/18 09:00 04/02/18 14:21 03/07/18 09:23 Diltiazem HCl (Cardizem) 90 mg EVERY 6 HOURS ORAL 03/07/18 12:00 04/06/18 11:59 03/07/18 11:45 Furosemide (Lasix) 40 mg DAILY ORAL 03/07/18 09:00 04/04/18 08:59 03/07/18 09:24 Haloperidol Lactate (Haldol) 5 mg Q4H PRN IM Agitation 03/06/18 19:45 03/31/18 19:44 Hydralazine HCl (Apresoline) 25 mg Q6HR ORAL 03/07/18 00:00 04/04/18 18:21 03/07/18 11:44 Insulin Aspart (NovoLOG) BEFORE MEALS AND HS SUBQ 03/06/18 21:00 03/31/18 16:29 03/07/18 11:59 Lorazepam (Ativan 2mg/ml 1ml) 1 mg Q4H PRN IV For Anxiety 03/06/18 19:45 03/08/18 19:44 03/07/18 12:59 Metoprolol Tartrate (Lopressor) 10 mg Q1H PRN IVP Heart rate >120 per minute 03/06/18 19:45 03/31/18 19:44 Morphine Sulfate (Morphine Sulfate) 2 mg Q4H PRN IVP Moderate Pain (Pain Scale 4-6) 03/06/18 19:45 03/07/18 19:44 Nitroglycerin (Ntg) 0.4 mg Q5M PRN SL Prn Chest Pain 03/06/18 19:45 03/30/18 18:20 Ondansetron HCl (Zofran) 4 mg Q6H PRN IVP Nausea & Vomiting 03/06/18 19:45 04/05/18 19:44 Piperacillin Sod/ Tazobactam Sod 3.375 gm/Sodium Chloride 110 ml @ 27.5 mls/hr EVERY 8 HOURS IVPB 03/06/18 22:00 03/11/18 21:59 03/07/18 11:33 Polyethylene Glycol (Miralax) 17 gm DAILYPRN PRN ORAL Constipation 03/06/18 19:45 04/05/18 19:44 Temazepam (Restoril) 15 mg HSPRN PRN ORAL Insomnia 03/06/18 19:45 03/13/18 19:44 Vancomycin HCl (Vanco rx to dose) 1 ea DAILY PRN MISC rx protocol 03/06/18 19:45 04/05/18 19:44 Vancomycin/Sodium Chloride 250 ml @ 167 mls/hr Q12H IVPB 03/06/18 23:00 03/11/18 22:59 03/07/18 11:33 Susan Dennis M.D. Mar 07, 2018 14:32
--- NOTE | 2018-03-07 15:25 | Diagnostic Imaging Report ---
Indications: Altered level of consciousness acute encephalopathy Technique: Spiral acquisitions obtained through the brain. Angled axial and coronal 5 x 5 mm slices were reconstructed. Total dose length product 3212.92 mGycm. CTDI vol(s) 70.38,70.38 mGy. Dose reduction achieved using automated exposure control Comparison: None. Findings: There is mild prominence of the ventricles and extra axial CSF spaces. No acute intracranial hemorrhage or edema. Normal carmona-white differentiation. No mass effect nor midline shift. Intact calvarium. There is minimal mastoid disease on the right Impression: Mild cerebral volume loss, somewhat striking for age Negative for acute intracranial bleed or mass effect Minimal right mastoid disease The CT scanner at [facility] is accredited by the [employer] and the scans are performed using protocols designed to limit radiation exposure to as low as reasonably achievable to attain images of sufficient resolution adequate for diagnostic evaluation.
[2018-03-07 16:00] VITALS: BP 123/81
--- NOTE | 2018-03-07 18:42 | Neurology Progress Note ---
Interim History Interim History Interim History Mr. Cornejo is non-verbal. He opens his eyes on vigorous auditory and tactile stimulation. He is moving all 4 extremities minimally on deep pain today. As per his nurse he was given Ativan for his CT of the brain. He has not been agitated. Review of Systems Neuro Review of Systems Benign. Objective Physical Exam Last Vital Signs Date Time Temp Pulse Resp B/P (MAP) Pulse Ox O2 Delivery O2 Flow Rate FiO2 03/07/18 17:37 88 123/81 03/07/18 16:00 Venturi Mask 6.0 03/07/18 16:00 98.6 23 95 03/07/18 07:11 35 Laboratory Tests Test 03/06/18 21:50 03/07/18 03:25 Vancomycin Level Trough 17.2 ug/mL (5.0-12.0) H White Blood Count 11.0 K/UL (4.8-10.8) H Red Blood Count 5.96 M/UL (4.70-6.10) Hemoglobin 15.7 G/DL (14.2-18.0) Hematocrit 49.9 % (42.0-52.0) Mean Corpuscular Volume 84 FL (80-99) Mean Corpuscular Hemoglobin 26.4 PG (27.0-31.0) L Mean Corpuscular Hemoglobin Concent 31.5 G/DL (32.0-36.0) L Red Cell Distribution Width 17.8 % (11.6-14.8) H Platelet Count 220 K/UL (150-450) Mean Platelet Volume 7.2 FL (6.5-10.1) Neutrophils (%) (Auto) 80.8 % (45.0-75.0) H Lymphocytes (%) (Auto) 11.0 % (20.0-45.0) L Monocytes (%) (Auto) 7.6 % (1.0-10.0) Eosinophils (%) (Auto) 0.3 % (0.0-3.0) Basophils (%) (Auto) 0.3 % (0.0-2.0) Sodium Level 158 MMOL/L (136-145) H Potassium Level 3.7 MMOL/L (3.5-5.1) Chloride Level 120 MMOL/L (98-107) H Carbon Dioxide Level 28 MMOL/L (21-32) Anion Gap 10 mmol/L (5-15) Blood Urea Nitrogen 36 mg/dL (7-18) H Creatinine 1.3 MG/DL (0.55-1.30) Estimat Glomerular Filtration Rate 57.3 mL/min (>60) Glucose Level 250 MG/DL (74-106) H Calcium Level 8.7 MG/DL (8.5-10.1) Total Bilirubin 2.8 MG/DL (0.2-1.0) H Direct Bilirubin 1.2 MG/DL (0.0-0.3) H Aspartate Amino Transf (AST/SGOT) 40 U/L (15-37) H Alanine Aminotransferase (ALT/SGPT) 166 U/L (12-78) H Alkaline Phosphatase 180 U/L (46-116) H Total Protein 6.5 G/DL (6.4-8.2) Albumin 2.1 G/DL (3.4-5.0) L Digoxin Level 0.7 NG/ML (0.5-2.0) Neurologic Exam Objective PHYSICAL EXAMINATION: GENERAL: He is a well developed, well nourished, gentleman, lying in bed, in no acute distress. HEAD: Normocephalic and atraumatic. EENT: Examination benign. NECK: No neck rigidity was observed. NEUROLOGIC EXAMINATION: MENTAL STATUS EXAMINATION: He was arousable on loud vocal stimulation and on applying deep painful stimuli. Further mental status testing was impossible. SPEECH: Could not be tested. LANGUAGE: Could not be tested. CRANIAL NERVE EXAMINATION: II: He did to blink to threat. III, IV & : The external ocular movements were present on oculocephalic maneuvers. The pupils were 3 mm in diameter and did not react to light. V & VII: The corneal reflexes were present and equal. VIII: He did respond to sounds and had no nystagmus. IX & X: The gag reflex was absent. XI: The sternocleidomastoids and trapezii did function. XII: The tongue was in the midline. MOTOR SYSTEM: The tone was normal in all 4 extremities. Examination of muscle mass revealed no focal wasting. 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 Examination of power was impossible to perform because even on applying deep painful stimuli, minimal movements were seen. SENSORY EXAMINATION: He only responded to deep painful stimuli with wincing. REFLEXES: 0 at the biceps, triceps, brachioradialis, knees, and ankles. The right plantar response could not be tested as he had no toes, and the left plantar response was extensor. COORDINATION, STANCE & GAIT: Could not be tested. Impression/Recommendations Diagnostic Impression 1. Mr. Dustin Cornejo is a 57-year-old, gentleman, of unknown handedness, who was hospitalized for right lower extremity cellulitis and then in the hospital deteriorated to a point where became quite altered with regards to his mental state on 03/05/2018 and was transferred to the ICU. He was noted to have atrial fibrillation with a rapid ventricular rate and shortness of breath related to hypoxic respiratory failure and then became agitated as a result of which he was given multiple doses of Ativan, Haldol, and morphine. 2. He is non-verbal. He opens his eyes on vigorous auditory and tactile stimulation. He is moving all 4 extremities minimally on deep pain today. As per his nurse he was given Ativan for his CT of the brain. He has not been agitated. 3. On neurological examination, at this time, he is arousable on loud vocal stimulation and on applying deep painful stimuli. Further mental status testing is impossible. He blinks to threat. He does have eye movements on oculocephalic maneuvers, corneal reflexes that are diminished but equal, absent gag reflex, globally absent deep tendon reflexes, and an extensor plantar response on the left side with inability to test the plantar response on the right side because of the absence of toes. 4. His latest laboratory data on my initial evaluation revealed his WBC count was elevated to 13,400. He had his last ESR on 03/02/2018 and it was 7. His blood gases revealed that he had a pH of 7.48, pCO2 of 35, and pO2 of 51. His latest chemistry panel revealed that his sodium was elevated to 155. His chloride was elevated to 118. His BUN was elevated to 41. His creatinine was elevated to 1.3. His glucose was elevated to 208. His total bilirubin was elevated at 2.8. His AST, ALT, and alkaline phosphatase were all elevated. His albumin was low at 2.2. His urine toxicology screen on admission revealed that tetrahydrocannabinols were present. His serologies were negative for HIV. 5. Further laboratory tests revealed a normal B12, Folate, TSH but the Hb A1C was elevated at 9.2%. 6. The CT of the brain done on 03/07/18 revealed atrophy and deep white matter disease but no acute pathology. 7. The patient's history, neurological examination, laboratory data and imaging are most compatible with a severe toxic metabolic encephalopathy, which is multifactorial. Acute intracranial pathology has been excluded. Recommendations 1. Continue present management. 2. Would try to keep the patient off all mind-altering drugs. 3. Await EEG to evaluate the patient for the degree and type of cerebral dysfunction. 4. Observe closely. Dawit Marshall M.D., M.S.P.H. Dawit Marshall MD Mar 07, 2018 18:42
--- NOTE | 2018-03-07 19:09 | Nephrology Progress Note ---
Assessment/Plan Assessment 1.hypernatremia 2.ZHAO 3.ckd 4.respiratory failure 5.CHF Plan free water via NG give d5w for 24 hours monitoring renal function avoid NSAID replace electrolyte as need it Subjective Constitutional: Reports: no symptoms HEENT: Reports: no symptoms Genitourinary: Reports: no symptoms Neurologic/Psychiatric: Reports: no symptoms Subjective on vent mask open his eyes with verbal stimuli not fallowing command Objective Objective Last 24 Hour Vital Signs Date Time Temp Pulse Resp B/P (MAP) Pulse Ox O2 Delivery O2 Flow Rate FiO2 03/07/18 17:37 88 123/81 03/07/18 17:37 123/81 03/07/18 16:00 Venturi Mask 6.0 03/07/18 16:00 82 03/07/18 16:00 98.6 88 23 123/81 (95) 95 03/07/18 12:00 97.7 88 19 134/71 (92) 92 03/07/18 12:00 Venturi Mask 6.0 03/07/18 12:00 87 03/07/18 11:45 88 134/74 03/07/18 11:44 134/74 03/07/18 09:24 87 126/78 03/07/18 09:23 87 03/07/18 08:00 99.2 87 21 126/78 (94) 95 03/07/18 08:00 77 03/07/18 08:00 Venturi Mask 6.0 03/07/18 07:11 98 Venturi Mask 6.0 35 03/07/18 07:11 Venturi Mask 6.0 35 03/07/18 06:07 93 150/93 03/07/18 06:07 150/93 03/07/18 04:00 88 03/07/18 04:00 99.8 93 18 150/93 (112) 96 03/07/18 04:00 Venturi Mask 6.0 03/07/18 01:09 99.7 03/07/18 00:39 102 145/86 03/07/18 00:38 145/86 03/07/18 00:00 102 03/07/18 00:00 Venturi Mask 6.0 03/07/18 00:00 101.7 97 18 145/86 (105) 92 03/06/18 20:39 105 140/97 03/06/18 20:00 102 03/06/18 20:00 Venturi Mask 6.0 03/06/18 20:00 97.7 100 18 140/97 (111) 95 03/06/18 19:55 Venturi Mask 6.0 35 03/06/18 19:55 97 Venturi Mask 6.0 35 Intake and Output 03/06/18 03/07/18 19:00 07:00 Intake Total 1339.916 ml 1200 ml Output Total 2200 ml 1100 ml Balance -860.084 ml 100 ml Free Water 500 ml 500 ml IV Total 449.916 ml Tube Feeding 390 ml 700 ml Output Urine Total 2200 ml 1100 ml Laboratory Tests 03/06/18 21:50: Vancomycin Level Trough 17.2H 03/07/18 03:25: White Blood Count 11.0H, Red Blood Count 5.96, Hemoglobin 15.7, Hematocrit 49.9 , Mean Corpuscular Volume 84, Mean Corpuscular Hemoglobin 26.4L, Mean Corpuscular Hemoglobin Concent 31.5L, Red Cell Distribution Width 17.8H, Platelet Count 220, Mean Platelet Volume 7.2, Neutrophils (%) (Auto) 80.8H, Lymphocytes (%) (Auto) 11.0L, Monocytes (%) (Auto) 7.6, Eosinophils (%) (Auto) 0.3, Basophils (%) (Auto) 0.3, Sodium Level 158H, Potassium Level 3.7, Chloride Level 120H, Carbon Dioxide Level 28, Anion Gap 10, Blood Urea Nitrogen 36H, Creatinine 1.3, Estimat Glomerular Filtration Rate 57.3, Glucose Level 250H, Calcium Level 8.7, Total Bilirubin 2.8H, Direct Bilirubin 1.2H, Aspartate Amino Transf (AST/SGOT) 40H, Alanine Aminotransferase (ALT/SGPT) 166H, Alkaline Phosphatase 180H, Total Protein 6.5, Albumin 2.1L, Digoxin Level 0.7 Height (Feet): 6 Height (Inches): 0.00 Weight (Pounds): 270 Objective HEENT: Atraumatic and normocephalic. Anicteric. Pupils are equal, round, and reactive to light and accommodation. Extraocular muscles intact. Altered. NECK: JVP elevated about 5cm. No carotid bruits. Carotid upstrokes 2+ bilaterally. CARDIOVASCULAR: Normal S1, S2. Irregularly irregular rhythm. 2/6 Holosystolic murmur, gallop, or rub. LUNGS: Diminished BS both lungs. ABDOMEN: Soft, nontender, and nondistended. No hepatosplenomegaly. Positive bowel sounds. EXTREMITIES: There is 1+ bilateral lower extremity edema with ulcerations. Maryana Collier MD Mar 07, 2018 19:09
[2018-03-07] MEDS: LORazepam Inj 2mg/ml 1ml IV PRN (19:42)
[2018-03-07 20:00] VITALS: BP 130/64
[2018-03-07] MEDS: Dyna-Hex 2% Top Sol 2oz TOPIC SCH (20:18)
[2018-03-08] VITALS (9 sets, daily range): BP systolic 76–126; BP diastolic 42–86
[2018-03-08] MEDS: LORazepam Inj 2mg/ml 1ml IV PRN (04:49)
[2018-03-08] MEDS: Piperacillin/Tazobactam 3.375 GM in NS 110 ML IVPB SCH ×3 (04:50→20:30)
[2018-03-08] MEDS: dilTIAZem HCl 90mg tab ORAL SCH ×4 (05:05→23:14)
[2018-03-08] MEDS: HydrALAZINE 25mg tab ORAL SCH ×4 (05:05→23:14)
[2018-03-08 05:13] LABS: BASOPHILS % (AUTO) 0.7 % (0.0-2.0); EOSINOPHILS % (AUTO) 2.8 % (0.0-3.0); HEMATOCRIT 50.7 % (42.0-52.0); HEMOGLOBIN 15.9 G/DL (14.2-18.0); LYMPHOCYTES % (AUTO) 9.1 % (20.0-45.0); MEAN CORPUSCULAR VOLUME 83 FL (80-99); MONOCYTES % (AUTO) 6.3 % (1.0-10.0); NEUTROPHILS % (AUTO) 81.1 % (45.0-75.0); PLATELET COUNT 263 K/UL (150-450); RED BLOOD COUNT 6.09 M/UL (4.70-6.10); RED CELL DISTRIBUTION WIDTH 18.3 % (11.6-14.8)
[2018-03-08 06:01] LABS: ALANINE AMINOTRANSFERASE 119 U/L (12-78); ALBUMIN 2.1 G/DL (3.4-5.0); ALBUMIN/GLOBULIN RATIO 0.5 (1.0-2.7); ALKALINE PHOSPHATASE 184 U/L (46-116); ANION GAP 8 mmol/L (5-15); ASPARTATE AMINO TRANSFERASE 34 U/L (15-37); BILIRUBIN,TOTAL 2.8 MG/DL (0.2-1.0); BLOOD UREA NITROGEN 38 mg/dL (7-18); CALCIUM 8.6 MG/DL (8.5-10.1); CARBON DIOXIDE 31 MMOL/L (21-32); CHLORIDE 122 MMOL/L (98-107); CREATININE 1.4 MG/DL (0.55-1.30); POTASSIUM 3.6 MMOL/L (3.5-5.1)
[2018-03-08 06:09] LABS: SODIUM 161 MMOL/L (136-145)
[2018-03-08 06:13] LABS: BILIRUBIN,DIRECT 1.4 MG/DL (0.0-0.3)
[2018-03-08] MEDS: NovoLOG Insulin Flexpen SUBQ SCH ×4 (06:49→20:31)
[2018-03-08] MEDS: Carvedilol 25mg Tab ORAL SCH ×2 (09:00→20:27)
[2018-03-08] MEDS: Furosemide 40mg tab ORAL SCH (09:00)
[2018-03-08] MEDS: Eliquis 2.5mg tablet ORAL SCH ×2 (09:00→20:27)
--- NOTE | 2018-03-08 09:00 | Nephrology Progress Note ---
Assessment/Plan Assessment 1.hypernatremia 2.ZHOA 3.ckd 4.respiratory failure 5.CHF Plan free water via NG give d5w for 24 hours hold lasix monitoring renal function avoid NSAID replace electrolyte as need it Subjective Constitutional: Reports: no symptoms HEENT: Reports: no symptoms Genitourinary: Reports: no symptoms Neurologic/Psychiatric: Reports: no symptoms Subjective open his eyes with verbal stimuli not fallowing command Objective Objective Last 24 Hour Vital Signs Date Time Temp Pulse Resp B/P (MAP) Pulse Ox O2 Delivery O2 Flow Rate FiO2 03/08/18 05:05 85 120/70 03/08/18 05:05 120/70 03/08/18 04:00 98.1 83 26 120/53 (75) 91 03/08/18 04:00 Venturi Mask 15.0 03/08/18 04:00 86 03/08/18 00:00 76 03/08/18 00:00 Venturi Mask 15.0 03/08/18 00:00 98.1 89 32 115/58 (77) 91 03/07/18 23:42 115/58 03/07/18 23:41 80 115/58 03/07/18 20:19 66 134/84 03/07/18 20:00 65 03/07/18 20:00 Venturi Mask 15.0 03/07/18 20:00 98.4 70 32 130/64 (86) 91 03/07/18 19:22 Venturi Mask 6.0 35 03/07/18 19:22 98 Venturi Mask 6.0 35 03/07/18 17:37 88 123/81 03/07/18 17:37 123/81 03/07/18 16:00 Venturi Mask 6.0 03/07/18 16:00 82 03/07/18 16:00 98.6 88 23 123/81 (95) 95 03/07/18 12:00 97.7 88 19 134/71 (92) 92 03/07/18 12:00 Venturi Mask 6.0 03/07/18 12:00 87 03/07/18 11:45 88 134/74 03/07/18 11:44 134/74 03/07/18 09:24 87 126/78 03/07/18 09:23 87 Intake and Output 03/07/18 03/08/18 18:59 06:59 Intake Total 1654.25 ml 180 ml Output Total 2900 ml 1000 ml Balance -1245.75 ml -820 ml Free Water 500 ml 120 ml IV Total 374.25 ml Tube Feeding 780 ml 60 ml Output Urine Total 2900 ml 1000 ml Laboratory Tests 03/08/18 04:00: White Blood Count 13.0H, Red Blood Count 6.09, Hemoglobin 15.9, Hematocrit 50.7 , Mean Corpuscular Volume 83, Mean Corpuscular Hemoglobin 26.2L, Mean Corpuscular Hemoglobin Concent 31.4L, Red Cell Distribution Width 18.3H, Platelet Count 263, Mean Platelet Volume 9.4, Neutrophils (%) (Auto) 81.1H, Lymphocytes (%) (Auto) 9.1L, Monocytes (%) (Auto) 6.3, Eosinophils (%) (Auto) 2.8, Basophils (%) (Auto) 0.7, Sodium Level 161*H, Potassium Level 3.6, Chloride Level 122H, Carbon Dioxide Level 31, Anion Gap 8, Blood Urea Nitrogen 38H, Creatinine 1.4H, Estimat Glomerular Filtration Rate 52.6, Glucose Level 307H, Calcium Level 8.6, Total Bilirubin 2.8H, Direct Bilirubin 1.4H, Aspartate Amino Transf (AST/SGOT) 34, Alanine Aminotransferase (ALT/SGPT) 119H, Alkaline Phosphatase 184H, Total Protein 6.7, Albumin 2.1L, Globulin 4.6, Albumin/ Globulin Ratio 0.5L Height (Feet): 6 Height (Inches): 0.00 Weight (Pounds): 270 Objective HEENT: Atraumatic and normocephalic. Anicteric. Pupils are equal, round, and reactive to light and accommodation. Extraocular muscles intact. Altered. NECK: JVP elevated about 5cm. No carotid bruits. Carotid upstrokes 2+ bilaterally. CARDIOVASCULAR: Normal S1, S2. Irregularly irregular rhythm. 2/6 Holosystolic murmur, gallop, or rub. LUNGS: Diminished BS both lungs. ABDOMEN: Soft, nontender, and nondistended. No hepatosplenomegaly. Positive bowel sounds. EXTREMITIES: There is 1+ bilateral lower extremity edema with ulcerations. Maryana Collier MD Mar 08, 2018 09:00
[2018-03-08] MEDS: Digoxin 0.5mg/2ml Inj IVP SCH (09:08)
--- NOTE | 2018-03-08 10:45 | GI Progress Note ---
Assessment/Plan Problems: (1) Dysphagia ICD Codes: R13.10 - Dysphagia, unspecified SNOMED: 44282627, 807593725 (2) Drug abuse ICD Codes: F19.10 - Other psychoactive substance abuse, uncomplicated SNOMED: 51591473 Status: stable Status Narrative Discussed with Dr. Noe. Assessment/Plan us reviewed >> Cholelithiasis. Borderline gallbladder wall thickening, could indicate early acute cholecystitis changes. neg hepatitis panel HIDA negative LFTs still elevated, trend ST evaluation noted cont NGTFs, PEG if necessary electrolyte correction prn transfusions ppi fu labs The patient was seen and examined at bedside and all new and available data was reviewed in the patients chart. I agree with the above findings, impression and plan. (Patient seen earlier today. Signature stamp does not reflect patient encounter time.). - Khalif Noe MD Subjective Subjective limited Objective Last 24 Hour Vital Signs Date Time Temp Pulse Resp B/P (MAP) Pulse Ox O2 Delivery O2 Flow Rate FiO2 03/08/18 09:08 85 03/08/18 09:00 85 110/70 03/08/18 08:00 98.5 85 26 124/50 (74) 91 03/08/18 08:00 Venturi Mask 15.0 03/08/18 08:00 82 03/08/18 05:05 85 120/70 03/08/18 05:05 120/70 03/08/18 04:00 98.1 83 26 120/53 (75) 91 03/08/18 04:00 Venturi Mask 15.0 03/08/18 04:00 86 03/08/18 00:00 76 03/08/18 00:00 Venturi Mask 15.0 03/08/18 00:00 98.1 89 32 115/58 (77) 91 03/07/18 23:42 115/58 03/07/18 23:41 80 115/58 03/07/18 20:19 66 134/84 03/07/18 20:00 65 03/07/18 20:00 Venturi Mask 15.0 03/07/18 20:00 98.4 70 32 130/64 (86) 91 03/07/18 19:22 Venturi Mask 6.0 35 03/07/18 19:22 98 Venturi Mask 6.0 35 03/07/18 17:37 88 123/81 03/07/18 17:37 123/81 03/07/18 16:00 Venturi Mask 6.0 03/07/18 16:00 82 03/07/18 16:00 98.6 88 23 123/81 (95) 95 03/07/18 12:00 97.7 88 19 134/71 (92) 92 03/07/18 12:00 Venturi Mask 6.0 03/07/18 12:00 87 03/07/18 11:45 88 134/74 03/07/18 11:44 134/74 Intake and Output 03/07/18 03/08/18 18:59 06:59 Intake Total 1654.25 ml 180 ml Output Total 2900 ml 1000 ml Balance -1245.75 ml -820 ml Free Water 500 ml 120 ml IV Total 374.25 ml Tube Feeding 780 ml 60 ml Output Urine Total 2900 ml 1000 ml Laboratory Tests Test 03/08/18 04:00 03/08/18 09:55 White Blood Count 13.0 K/UL (4.8-10.8) H Red Blood Count 6.09 M/UL (4.70-6.10) Hemoglobin 15.9 G/DL (14.2-18.0) Hematocrit 50.7 % (42.0-52.0) Mean Corpuscular Volume 83 FL (80-99) Mean Corpuscular Hemoglobin 26.2 PG (27.0-31.0) L Mean Corpuscular Hemoglobin Concent 31.4 G/DL (32.0-36.0) L Red Cell Distribution Width 18.3 % (11.6-14.8) H Platelet Count 263 K/UL (150-450) Mean Platelet Volume 9.4 FL (6.5-10.1) Neutrophils (%) (Auto) 81.1 % (45.0-75.0) H Lymphocytes (%) (Auto) 9.1 % (20.0-45.0) L Monocytes (%) (Auto) 6.3 % (1.0-10.0) Eosinophils (%) (Auto) 2.8 % (0.0-3.0) Basophils (%) (Auto) 0.7 % (0.0-2.0) Sodium Level 161 MMOL/L (136-145) *H Potassium Level 3.6 MMOL/L (3.5-5.1) Chloride Level 122 MMOL/L (98-107) H Carbon Dioxide Level 31 MMOL/L (21-32) Anion Gap 8 mmol/L (5-15) Blood Urea Nitrogen 38 mg/dL (7-18) H Creatinine 1.4 MG/DL (0.55-1.30) H Estimat Glomerular Filtration Rate 52.6 mL/min (>60) Glucose Level 307 MG/DL (74-106) H Calcium Level 8.6 MG/DL (8.5-10.1) Total Bilirubin 2.8 MG/DL (0.2-1.0) H Direct Bilirubin 1.4 MG/DL (0.0-0.3) H Aspartate Amino Transf (AST/SGOT) 34 U/L (15-37) Alanine Aminotransferase (ALT/SGPT) 119 U/L (12-78) H Alkaline Phosphatase 184 U/L (46-116) H Total Protein 6.7 G/DL (6.4-8.2) Albumin 2.1 G/DL (3.4-5.0) L Globulin 4.6 g/dL Albumin/Globulin Ratio 0.5 (1.0-2.7) L Vancomycin Level Trough Pending Height (Feet): 6 Height (Inches): 0.00 Weight (Pounds): 270 General Appearance: no apparent distress, morbidly obese Cardiovascular: normal rate Respiratory/Chest: normal breath sounds, no respiratory distress, other Abdominal Exam: normal bowel sounds, non tender, soft, GT site Extremities: non-tender Efraín Hernandez NP Mar 08, 2018 10:45
--- NOTE | 2018-03-08 10:56 | Pulmonology Progress Note ---
Assessment/Plan Problems: (1) Acute encephalopathy (2) Diastolic CHF, chronic (3) Rapid atrial fibrillation (4) Diabetes (5) Cellulitis Assessment/Plan CT head was negative neuro consult appreciated f/u cardio recommendation f/u cultures iv abx EEG. heart rate controlled. Subjective ROS Limited/Unobtainable: Yes Interval Events: slightly more awake Allergies: Coded Allergies: No Known Allergies (Unverified , 02/16/18) Objective Last 24 Hour Vital Signs Date Time Temp Pulse Resp B/P (MAP) Pulse Ox O2 Delivery O2 Flow Rate FiO2 03/08/18 09:08 85 03/08/18 09:00 85 110/70 03/08/18 08:00 98.5 85 26 124/50 (74) 91 03/08/18 08:00 Venturi Mask 15.0 03/08/18 08:00 82 03/08/18 05:05 85 120/70 03/08/18 05:05 120/70 03/08/18 04:00 98.1 83 26 120/53 (75) 91 03/08/18 04:00 Venturi Mask 15.0 03/08/18 04:00 86 03/08/18 00:00 76 03/08/18 00:00 Venturi Mask 15.0 03/08/18 00:00 98.1 89 32 115/58 (77) 91 03/07/18 23:42 115/58 03/07/18 23:41 80 115/58 03/07/18 20:19 66 134/84 03/07/18 20:00 65 03/07/18 20:00 Venturi Mask 15.0 03/07/18 20:00 98.4 70 32 130/64 (86) 91 03/07/18 19:22 Venturi Mask 6.0 35 03/07/18 19:22 98 Venturi Mask 6.0 35 03/07/18 17:37 88 123/81 03/07/18 17:37 123/81 03/07/18 16:00 Venturi Mask 6.0 03/07/18 16:00 82 03/07/18 16:00 98.6 88 23 123/81 (95) 95 03/07/18 12:00 97.7 88 19 134/71 (92) 92 03/07/18 12:00 Venturi Mask 6.0 03/07/18 12:00 87 03/07/18 11:45 88 134/74 03/07/18 11:44 134/74 Intake and Output 03/07/18 03/08/18 18:59 06:59 Intake Total 1654.25 ml 180 ml Output Total 2900 ml 1000 ml Balance -1245.75 ml -820 ml Free Water 500 ml 120 ml IV Total 374.25 ml Tube Feeding 780 ml 60 ml Output Urine Total 2900 ml 1000 ml General Appearance: WD/WN HEENT: normocephalic, atraumatic Respiratory/Chest: chest wall non-tender, lungs clear Cardiovascular: normal peripheral pulses, normal rate Abdomen: normal bowel sounds, soft, non tender, no organomegaly Extremities: no clubbing 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 Lymphatic: no neck adenopathy, no groin adenopathy Microbiology Date/Time Source Procedure Growth Status 03/06/18 16:30 Sputum Induced Gram Stain - Final Resulted 03/06/18 16:30 Sputum Culture - Preliminary Gram Negative Bacillus 1 Resulted Laboratory Tests 03/08/18 04:00: White Blood Count 13.0H, Red Blood Count 6.09, Hemoglobin 15.9, Hematocrit 50.7 , Mean Corpuscular Volume 83, Mean Corpuscular Hemoglobin 26.2L, Mean Corpuscular Hemoglobin Concent 31.4L, Red Cell Distribution Width 18.3H, Platelet Count 263, Mean Platelet Volume 9.4, Neutrophils (%) (Auto) 81.1H, Lymphocytes (%) (Auto) 9.1L, Monocytes (%) (Auto) 6.3, Eosinophils (%) (Auto) 2.8, Basophils (%) (Auto) 0.7, Sodium Level 161*H, Potassium Level 3.6, Chloride Level 122H, Carbon Dioxide Level 31, Anion Gap 8, Blood Urea Nitrogen 38H, Creatinine 1.4H, Estimat Glomerular Filtration Rate 52.6, Glucose Level 307H, Calcium Level 8.6, Total Bilirubin 2.8H, Direct Bilirubin 1.4H, Aspartate Amino Transf (AST/SGOT) 34, Alanine Aminotransferase (ALT/SGPT) 119H, Alkaline Phosphatase 184H, Total Protein 6.7, Albumin 2.1L, Globulin 4.6, Albumin/ Globulin Ratio 0.5L 03/08/18 09:55: Vancomycin Level Trough 12.2H Current Medications Medications (Trade) Dose Ordered Sig/Roseline Route PRN Reason Start Time Stop Time Status Last Admin Dose Admin Acetaminophen (Tylenol) 650 mg Q4H PRN ORAL fever (temp>100.5F) 03/06/18 19:45 03/30/18 19:44 03/07/18 00:39 Apixaban (Eliquis) 5 mg Q12HR ORAL 03/06/18 21:00 04/04/18 20:59 03/07/18 20:19 Carvedilol (Coreg) 25 mg EVERY 12 HOURS ORAL 03/06/18 21:00 04/02/18 20:59 03/07/18 20:19 Chlorhexidine Gluconate (Ashley-Hex 2%) 1 applic DAILY@2000 TOPIC 03/06/18 20:00 04/01/18 19:59 03/07/18 20:18 Dextrose 1,000 ml @ 100 mls/hr Q10H IV 03/08/18 11:00 04/07/18 10:59 Dextrose (Dextrose 50%) 25 ml Q30M PRN IV Hypoglycemia 03/06/18 20:00 03/30/18 13:59 Dextrose (Dextrose 50%) 50 ml Q30M PRN IV Hypoglycemia 03/06/18 20:00 03/30/18 13:59 Digoxin (Lanoxin) 0.125 mg DAILY IVP 03/07/18 09:00 04/02/18 14:21 03/08/18 09:08 Diltiazem HCl (Cardizem) 90 mg EVERY 6 HOURS ORAL 03/07/18 12:00 04/06/18 11:59 03/08/18 05:05 Furosemide (Lasix) 40 mg DAILY ORAL 03/07/18 09:00 04/04/18 08:59 03/07/18 09:24 Haloperidol Lactate (Haldol) 5 mg Q4H PRN IM Agitation 03/06/18 19:45 03/31/18 19:44 03/08/18 00:49 Hydralazine HCl (Apresoline) 25 mg Q6HR ORAL 03/07/18 00:00 04/04/18 18:21 03/08/18 05:05 Insulin Aspart (NovoLOG) BEFORE MEALS AND HS SUBQ 03/06/18 21:00 03/31/18 16:29 03/08/18 06:49 Lorazepam (Ativan 2mg/ml 1ml) 1 mg Q4H PRN IV For Anxiety 03/07/18 18:00 03/14/18 17:59 03/08/18 04:49 Metoprolol Tartrate (Lopressor) 10 mg Q1H PRN IVP Heart rate >120 per minute 03/06/18 19:45 03/31/18 19:44 Nitroglycerin (Ntg) 0.4 mg Q5M PRN SL Prn Chest Pain 03/06/18 19:45 03/30/18 18:20 Ondansetron HCl (Zofran) 4 mg Q6H PRN IVP Nausea & Vomiting 03/06/18 19:45 04/05/18 19:44 Piperacillin Sod/ Tazobactam Sod 3.375 gm/Sodium Chloride 110 ml @ 27.5 mls/hr Q8H IVPB 03/07/18 20:00 03/14/18 19:59 03/08/18 04:50 Polyethylene Glycol (Miralax) 17 gm DAILYPRN PRN ORAL Constipation 03/06/18 19:45 04/05/18 19:44 Temazepam (Restoril) 15 mg HSPRN PRN ORAL Insomnia 03/06/18 19:45 03/13/18 19:44 Vancomycin HCl (Vanco rx to dose) 1 ea DAILY PRN MISC rx protocol 03/06/18 19:45 04/05/18 19:44 Vancomycin/Sodium Chloride 250 ml @ 167 mls/hr Q12H IVPB 03/06/18 23:00 03/11/18 22:59 03/07/18 22:00 Sunita Sahni MD Mar 08, 2018 10:56
[2018-03-08] MEDS: Vancomycin 750mg/NS 250ml 250 ML IVPB SCH ×2 (11:15→23:00)
--- NOTE | 2018-03-08 11:50 | Infectious Diseases Prog Note ---
Assessment/Plan Assessment/Plan Assessment: Acute respiratory failure- due to Afib w/ RVR- Probable Asp PNA -sp cx GNR -CXR: Improved aeration of the right lung, presumably representing improving atelectasis. Right lower lobe infiltrate. There may also be pleural fluid on the right. Bilateral interstitial disease. Probably on the basis of pulmonary edema. However, considerable central bronchial wall thickening suggests a significant chronic component B/l LE purulent cellulitis- legs with scratches (self inflicted) -wound cx MRSA -L foot tibia/fibula xray: No acute process -R foot tibia/fibula xray: No acute bony trauma Fever, improving Mild leukocytosis, recurrent, imrpovng Afib w/ RVR ElevatedLFTs, improving - HIDA inconclusive but low prob for acute cholecysitis -HIDA: Questionable very small tracer collection in the region of the gallbladder fossa on delayed images, could represent partial filling of a nondistended gallbladder but this is not conclusive. Acute cholecystitis doubtful but not conclusively excluded based on these images and prior ultrasound, which showed a nondistended gallbladder. Patent common bile duct -Abd US: Cholelithiasis. Borderline gallbladder wall thickening, could indicate early acute cholecystitis changes. Consider hepatobiliary nuclear scan if there is high clinical suspicion. Negative for dilated ducts Incidental finding bilateral pleural effusions -acute hep panel, HIV sc neg ZHAO, resolving DM2 HTN CHF Schizoaffective disorder Plan: -Continue empiric IV Vancomycin #9 and ZOsyn #3 (abx d#4) to cover for possible PNA/aspiration in view of worsening resp status, fevers and leukocytosis -03/06 SP Ceftriaxone #2 -03/03 SP Ancef #2 -03/01 SP Cefepime #2 -f/u cx -Monitor CBC/CMP, temperatures -wound care -Sx, GI f/u Thank you for this consultation. Will continue to follow along with you. Discussed with RN. Subjective Allergies: Coded Allergies: No Known Allergies (Unverified , 02/16/18) Subjective afebrile in ~36hrs on sp cx GNR Objective Vital Signs Last 24 Hour Vital Signs Date Time Temp Pulse Resp B/P (MAP) Pulse Ox O2 Delivery O2 Flow Rate FiO2 03/08/18 09:08 85 03/08/18 09:00 85 110/70 03/08/18 08:00 98.5 85 26 124/50 (74) 91 03/08/18 08:00 Venturi Mask 15.0 03/08/18 08:00 82 03/08/18 07:50 68 03/08/18 05:05 85 120/70 03/08/18 05:05 120/70 03/08/18 04:00 98.1 83 26 120/53 (75) 91 03/08/18 04:00 Venturi Mask 15.0 03/08/18 04:00 86 03/08/18 00:00 76 03/08/18 00:00 Venturi Mask 15.0 03/08/18 00:00 98.1 89 32 115/58 (77) 91 03/07/18 23:42 115/58 03/07/18 23:41 80 115/58 03/07/18 20:19 66 134/84 03/07/18 20:00 65 03/07/18 20:00 Venturi Mask 15.0 03/07/18 20:00 98.4 70 32 130/64 (86) 91 03/07/18 19:22 Venturi Mask 6.0 35 03/07/18 19:22 98 Venturi Mask 6.0 35 03/07/18 17:37 88 123/81 03/07/18 17:37 123/81 03/07/18 16:00 Venturi Mask 6.0 03/07/18 16:00 82 03/07/18 16:00 98.6 88 23 123/81 (95) 95 03/07/18 12:00 97.7 88 19 134/71 (92) 92 03/07/18 12:00 Venturi Mask 6.0 03/07/18 12:00 87 03/07/18 11:45 88 134/74 03/07/18 11:44 134/74 Height (Feet): 6 Height (Inches): 0.00 Weight (Pounds): 270 Objective General Appearance: WD/WN Lines, tubes and drains: peripheral HEENT: normocephalic, atraumatic Neck: non-tender, normal alignment Respiratory/Chest: chest wall non-tender, lungs clear Breasts: no masses Cardiovascular/Chest: normal peripheral pulses Abdomen: normal bowel sounds, non tender Extremities: B/l leg erythema, swelling, with scratches and some minimal drainage Microbiology Date/Time Source Procedure Growth Status 03/06/18 16:30 Sputum Induced Gram Stain - Final Resulted 03/06/18 16:30 Sputum Culture - Preliminary Gram Negative Bacillus 1 Resulted Laboratory Tests Test 03/08/18 04:00 03/08/18 09:55 White Blood Count 13.0 K/UL (4.8-10.8) H Red Blood Count 6.09 M/UL (4.70-6.10) Hemoglobin 15.9 G/DL (14.2-18.0) Hematocrit 50.7 % (42.0-52.0) Mean Corpuscular Volume 83 FL (80-99) Mean Corpuscular Hemoglobin 26.2 PG (27.0-31.0) L Mean Corpuscular Hemoglobin Concent 31.4 G/DL (32.0-36.0) L Red Cell Distribution Width 18.3 % (11.6-14.8) H Platelet Count 263 K/UL (150-450) Mean Platelet Volume 9.4 FL (6.5-10.1) Neutrophils (%) (Auto) 81.1 % (45.0-75.0) H Lymphocytes (%) (Auto) 9.1 % (20.0-45.0) L Monocytes (%) (Auto) 6.3 % (1.0-10.0) Eosinophils (%) (Auto) 2.8 % (0.0-3.0) Basophils (%) (Auto) 0.7 % (0.0-2.0) Sodium Level 161 MMOL/L (136-145) *H Potassium Level 3.6 MMOL/L (3.5-5.1) Chloride Level 122 MMOL/L (98-107) H Carbon Dioxide Level 31 MMOL/L (21-32) Anion Gap 8 mmol/L (5-15) Blood Urea Nitrogen 38 mg/dL (7-18) H Creatinine 1.4 MG/DL (0.55-1.30) H Estimat Glomerular Filtration Rate 52.6 mL/min (>60) Glucose Level 307 MG/DL (74-106) H Calcium Level 8.6 MG/DL (8.5-10.1) Total Bilirubin 2.8 MG/DL (0.2-1.0) H Direct Bilirubin 1.4 MG/DL (0.0-0.3) H Aspartate Amino Transf (AST/SGOT) 34 U/L (15-37) Alanine Aminotransferase (ALT/SGPT) 119 U/L (12-78) H Alkaline Phosphatase 184 U/L (46-116) H Total Protein 6.7 G/DL (6.4-8.2) Albumin 2.1 G/DL (3.4-5.0) L Globulin 4.6 g/dL Albumin/Globulin Ratio 0.5 (1.0-2.7) L Vancomycin Level Trough 12.2 ug/mL (5.0-12.0) H Current Medications Medications (Trade) Dose Ordered Sig/Roseline Route PRN Reason Start Time Stop Time Status Last Admin Dose Admin Acetaminophen (Tylenol) 650 mg Q4H PRN ORAL fever (temp>100.5F) 03/06/18 19:45 03/30/18 19:44 03/07/18 00:39 Apixaban (Eliquis) 5 mg Q12HR ORAL 03/06/18 21:00 04/04/18 20:59 03/07/18 20:19 Carvedilol (Coreg) 25 mg EVERY 12 HOURS ORAL 03/06/18 21:00 04/02/18 20:59 03/07/18 20:19 Chlorhexidine Gluconate (Ashley-Hex 2%) 1 applic DAILY@2000 TOPIC 03/06/18 20:00 04/01/18 19:59 03/07/18 20:18 Dextrose 1,000 ml @ 100 mls/hr Q10H IV 03/08/18 11:00 04/07/18 10:59 03/08/18 11:14 Dextrose (Dextrose 50%) 25 ml Q30M PRN IV Hypoglycemia 03/06/18 20:00 03/30/18 13:59 Dextrose (Dextrose 50%) 50 ml Q30M PRN IV Hypoglycemia 03/06/18 20:00 03/30/18 13:59 Digoxin (Lanoxin) 0.125 mg DAILY IVP 03/07/18 09:00 04/02/18 14:21 03/08/18 09:08 Diltiazem HCl (Cardizem) 90 mg EVERY 6 HOURS ORAL 03/07/18 12:00 04/06/18 11:59 03/08/18 05:05 Furosemide (Lasix) 40 mg DAILY ORAL 03/07/18 09:00 04/04/18 08:59 03/07/18 09:24 Haloperidol Lactate (Haldol) 5 mg Q4H PRN IM Agitation 03/06/18 19:45 03/31/18 19:44 03/08/18 00:49 Hydralazine HCl (Apresoline) 25 mg Q6HR ORAL 03/07/18 00:00 04/04/18 18:21 03/08/18 05:05 Insulin Aspart (NovoLOG) BEFORE MEALS AND HS SUBQ 03/06/18 21:00 03/31/18 16:29 03/08/18 11:29 Lorazepam (Ativan 2mg/ml 1ml) 1 mg Q4H PRN IV For Anxiety 03/07/18 18:00 03/14/18 17:59 03/08/18 04:49 Metoprolol Tartrate (Lopressor) 10 mg Q1H PRN IVP Heart rate >120 per minute 03/06/18 19:45 03/31/18 19:44 Nitroglycerin (Ntg) 0.4 mg Q5M PRN SL Prn Chest Pain 03/06/18 19:45 03/30/18 18:20 Ondansetron HCl (Zofran) 4 mg Q6H PRN IVP Nausea & Vomiting 03/06/18 19:45 04/05/18 19:44 Piperacillin Sod/ Tazobactam Sod 3.375 gm/Sodium Chloride 110 ml @ 27.5 mls/hr Q8H IVPB 03/07/18 20:00 03/14/18 19:59 03/08/18 04:50 Polyethylene Glycol (Miralax) 17 gm DAILYPRN PRN ORAL Constipation 03/06/18 19:45 04/05/18 19:44 Temazepam (Restoril) 15 mg HSPRN PRN ORAL Insomnia 03/06/18 19:45 03/13/18 19:44 Vancomycin HCl (Vanco rx to dose) 1 ea DAILY PRN MISC rx protocol 03/06/18 19:45 04/05/18 19:44 Vancomycin/Sodium Chloride 250 ml @ 167 mls/hr Q12H IVPB 03/06/18 23:00 03/11/18 22:59 03/08/18 11:15 Susan Dennis M.D. Mar 08, 2018 11:49
--- NOTE | 2018-03-08 12:42 | General Progress Note ---
Assessment/Plan Problem List: (1) Diabetes ICD Codes: E11.9 - Type 2 diabetes mellitus without complications SNOMED: 03383081 (2) Cellulitis ICD Codes: L03.90 - Cellulitis, unspecified SNOMED: 158610840 (3) Acute renal failure ICD Codes: N17.9 - Acute kidney failure, unspecified SNOMED: 17328808 (4) Rapid atrial fibrillation ICD Codes: I48.91 - Unspecified atrial fibrillation SNOMED: 682851446 Status: unchanged Assessment/Plan o2 pulm tx cardio f/u abx cbc bmp am Subjective Constitutional: Reports: weakness Allergies: Coded Allergies: No Known Allergies (Unverified , 02/16/18) All Systems: reviewed and negative except above Subjective o2 mask ng sleeping Objective Last 24 Hour Vital Signs Date Time Temp Pulse Resp B/P (MAP) Pulse Ox O2 Delivery O2 Flow Rate FiO2 03/08/18 12:25 88 125/74 03/08/18 12:24 125/74 03/08/18 12:00 Venturi Mask 15.0 03/08/18 12:00 97.5 88 26 125/74 (91) 98 03/08/18 09:08 85 03/08/18 09:00 85 110/70 03/08/18 08:00 98.5 85 26 124/50 (74) 91 03/08/18 08:00 Venturi Mask 15.0 03/08/18 08:00 82 03/08/18 07:50 68 03/08/18 05:05 85 120/70 03/08/18 05:05 120/70 03/08/18 04:00 98.1 83 26 120/53 (75) 91 03/08/18 04:00 Venturi Mask 15.0 03/08/18 04:00 86 03/08/18 00:00 76 03/08/18 00:00 Venturi Mask 15.0 03/08/18 00:00 98.1 89 32 115/58 (77) 91 03/07/18 23:42 115/58 03/07/18 23:41 80 115/58 03/07/18 20:19 66 134/84 03/07/18 20:00 65 03/07/18 20:00 Venturi Mask 15.0 03/07/18 20:00 98.4 70 32 130/64 (86) 91 03/07/18 19:22 Venturi Mask 6.0 35 03/07/18 19:22 98 Venturi Mask 6.0 35 03/07/18 17:37 88 123/81 03/07/18 17:37 123/81 03/07/18 16:00 Venturi Mask 6.0 03/07/18 16:00 82 03/07/18 16:00 98.6 88 23 123/81 (95) 95 Intake and Output 03/07/18 03/08/18 19:00 07:00 Intake Total 1594.25 ml 180 ml Output Total 1800 ml 1000 ml Balance -205.75 ml -820 ml Free Water 500 ml 120 ml IV Total 374.25 ml Tube Feeding 720 ml 60 ml Output Urine Total 1800 ml 1000 ml Laboratory Tests 03/08/18 04:00: White Blood Count 13.0H, Red Blood Count 6.09, Hemoglobin 15.9, Hematocrit 50.7 , Mean Corpuscular Volume 83, Mean Corpuscular Hemoglobin 26.2L, Mean Corpuscular Hemoglobin Concent 31.4L, Red Cell Distribution Width 18.3H, Platelet Count 263, Mean Platelet Volume 9.4, Neutrophils (%) (Auto) 81.1H, Lymphocytes (%) (Auto) 9.1L, Monocytes (%) (Auto) 6.3, Eosinophils (%) (Auto) 2.8, Basophils (%) (Auto) 0.7, Sodium Level 161*H, Potassium Level 3.6, Chloride Level 122H, Carbon Dioxide Level 31, Anion Gap 8, Blood Urea Nitrogen 38H, Creatinine 1.4H, Estimat Glomerular Filtration Rate 52.6, Glucose Level 307H, Calcium Level 8.6, Total Bilirubin 2.8H, Direct Bilirubin 1.4H, Aspartate Amino Transf (AST/SGOT) 34, Alanine Aminotransferase (ALT/SGPT) 119H, Alkaline Phosphatase 184H, Total Protein 6.7, Albumin 2.1L, Globulin 4.6, Albumin/ Globulin Ratio 0.5L 03/08/18 09:55: Vancomycin Level Trough 12.2H Height (Feet): 6 Height (Inches): 0.00 Weight (Pounds): 270 General Appearance: lethargic EENT: normal ENT inspection Neck: normal alignment Cardiovascular: normal peripheral pulses, normal rate, regular rhythm Respiratory/Chest: chest wall non-tender, decreased breath sounds Abdomen: normal bowel sounds, non tender, soft Extremities: normal inspection Edema: no edema noted Arm (L), no edema noted Arm (R), no edema noted Leg (L), no edema noted Leg (R), no edema noted Pedal (L), no edema noted Pedal (R), no edema noted Generalized Neurologic: motor weakness Skin: normal pigmentation, warm/dry Mick Garcia DO Mar 08, 2018 12:42
--- NOTE | 2018-03-08 13:38 | General Surgery Progress Note ---
General Surgery-Progress Note Subjective Additional Comments no acute events. wounds stable. cellulitis improving Objective Last 24 Hour Vital Signs Date Time Temp Pulse Resp B/P (MAP) Pulse Ox O2 Delivery O2 Flow Rate FiO2 03/08/18 13:25 82 03/08/18 12:25 88 125/74 18 12:24 125/74 03/08/18 12:00 Venturi Mask 15.0 03/08/18 12:00 97.5 88 26 125/74 (91) 98 03/08/18 09:08 85 03/08/18 09:00 85 110/70 03/08/18 08:00 98.5 85 26 124/50 (74) 91 03/08/18 08:00 Venturi Mask 15.0 03/08/18 08:00 82 03/08/18 07:50 68 03/08/18 05:05 85 120/70 03/08/18 05:05 120/70 03/08/18 04:00 98.1 83 26 120/53 (75) 91 03/08/18 04:00 Venturi Mask 15.0 03/08/18 04:00 86 03/08/18 00:00 76 03/08/18 00:00 Venturi Mask 15.0 03/08/18 00:00 98.1 89 32 115/58 (77) 91 03/07/18 23:42 115/58 03/07/18 23:41 80 115/58 03/07/18 20:19 66 134/84 03/07/18 20:00 65 03/07/18 20:00 Venturi Mask 15.0 03/07/18 20:00 98.4 70 32 130/64 (86) 91 03/07/18 19:22 Venturi Mask 6.0 35 03/07/18 19:22 98 Venturi Mask 6.0 35 03/07/18 17:37 88 123/81 03/07/18 17:37 123/81 03/07/18 16:00 Venturi Mask 6.0 03/07/18 16:00 82 03/07/18 16:00 98.6 88 23 123/81 (95) 95 I&O Intake and Output 03/07/18 03/08/18 19:00 07:00 Intake Total 1594.25 ml 180 ml Output Total 1800 ml 1000 ml Balance -205.75 ml -820 ml Free Water 500 ml 120 ml IV Total 374.25 ml Tube Feeding 720 ml 60 ml Output Urine Total 1800 ml 1000 ml Dressing: other Wound: other Drains: other Cardiovascular: RSR Respiratory: clear Abdomen: soft, flat, non-tender, present bowel sounds Extremities: other Laboratory Tests Test 03/08/18 04:00 03/08/18 09:55 White Blood Count 13.0 K/UL (4.8-10.8) H Red Blood Count 6.09 M/UL (4.70-6.10) Hemoglobin 15.9 G/DL (14.2-18.0) Hematocrit 50.7 % (42.0-52.0) Mean Corpuscular Volume 83 FL (80-99) Mean Corpuscular Hemoglobin 26.2 PG (27.0-31.0) L Mean Corpuscular Hemoglobin Concent 31.4 G/DL (32.0-36.0) L Red Cell Distribution Width 18.3 % (11.6-14.8) H Platelet Count 263 K/UL (150-450) Mean Platelet Volume 9.4 FL (6.5-10.1) Neutrophils (%) (Auto) 81.1 % (45.0-75.0) H Lymphocytes (%) (Auto) 9.1 % (20.0-45.0) L Monocytes (%) (Auto) 6.3 % (1.0-10.0) Eosinophils (%) (Auto) 2.8 % (0.0-3.0) Basophils (%) (Auto) 0.7 % (0.0-2.0) Sodium Level 161 MMOL/L (136-145) *H Potassium Level 3.6 MMOL/L (3.5-5.1) Chloride Level 122 MMOL/L (98-107) H Carbon Dioxide Level 31 MMOL/L (21-32) Anion Gap 8 mmol/L (5-15) Blood Urea Nitrogen 38 mg/dL (7-18) H Creatinine 1.4 MG/DL (0.55-1.30) H Estimat Glomerular Filtration Rate 52.6 mL/min (>60) Glucose Level 307 MG/DL (74-106) H Calcium Level 8.6 MG/DL (8.5-10.1) Total Bilirubin 2.8 MG/DL (0.2-1.0) H Direct Bilirubin 1.4 MG/DL (0.0-0.3) H Aspartate Amino Transf (AST/SGOT) 34 U/L (15-37) Alanine Aminotransferase (ALT/SGPT) 119 U/L (12-78) H Alkaline Phosphatase 184 U/L (46-116) H Total Protein 6.7 G/DL (6.4-8.2) Albumin 2.1 G/DL (3.4-5.0) L Globulin 4.6 g/dL Albumin/Globulin Ratio 0.5 (1.0-2.7) L Vancomycin Level Trough 12.2 ug/mL (5.0-12.0) H Plan Problems: (1) Abnormal LFTs Assessment & Plan: will obtain hepatitis panel US abdomen - Cholelithiasis; Borderline gallbladder wall thickening, could indicate early acute cholecystitis changes. Consider hepatobiliary nuclear scan if there is high clinical suspicion Negative for dilated ducts will monitor clinically for now HIDA noted hep panel negative hiv neg LFTs noted / improving no surgical intervention necessary at this time. -unlikely cholecystitis. likely contracted GB okay for diet d/c planning appreciate GI input trend labs (2) Cellulitis Assessment & Plan: chronic bilateral lower extremity wounds / ulcers acute on chronic cellulitis no abscess noted serous drainage multiple wounds that seem traumatic like cuts some small ulcers see wound photos for details -IV Abx as per ID -Keep legs elevated -apply skin protectant, hydrogel, non adherent dressings, and wrap -okay to ambulate. -d/c planning Garth Cornelius Mar 08, 2018 13:38
[2018-03-08] MEDS ORDERED: NS 275ml ONE (15:15)
--- NOTE | 2018-03-08 18:47 | Neurology Progress Note ---
Interim History Interim History Interim History Mr. Cornejo continues to be non-verbal. He opens his eyes on painful stimulation. He is moving all 4 extremities minimally on deep pain today. As per his nurse he was not given any mind altering drugs today. He has not been agitated. Review of Systems Neuro Review of Systems Unable to obtain. Objective Physical Exam Last Vital Signs Date Time Temp Pulse Resp B/P (MAP) Pulse Ox O2 Delivery O2 Flow Rate FiO2 03/08/18 17:47 84 03/08/18 17:19 123/80 03/08/18 16:00 Venturi Mask 15.0 03/08/18 16:00 97.7 30 96 03/07/18 19:22 35 Laboratory Tests Test 03/08/18 04:00 03/08/18 09:55 White Blood Count 13.0 K/UL (4.8-10.8) H Red Blood Count 6.09 M/UL (4.70-6.10) Hemoglobin 15.9 G/DL (14.2-18.0) Hematocrit 50.7 % (42.0-52.0) Mean Corpuscular Volume 83 FL (80-99) Mean Corpuscular Hemoglobin 26.2 PG (27.0-31.0) L Mean Corpuscular Hemoglobin Concent 31.4 G/DL (32.0-36.0) L Red Cell Distribution Width 18.3 % (11.6-14.8) H Platelet Count 263 K/UL (150-450) Mean Platelet Volume 9.4 FL (6.5-10.1) Neutrophils (%) (Auto) 81.1 % (45.0-75.0) H Lymphocytes (%) (Auto) 9.1 % (20.0-45.0) L Monocytes (%) (Auto) 6.3 % (1.0-10.0) Eosinophils (%) (Auto) 2.8 % (0.0-3.0) Basophils (%) (Auto) 0.7 % (0.0-2.0) Sodium Level 161 MMOL/L (136-145) *H Potassium Level 3.6 MMOL/L (3.5-5.1) Chloride Level 122 MMOL/L (98-107) H Carbon Dioxide Level 31 MMOL/L (21-32) Anion Gap 8 mmol/L (5-15) Blood Urea Nitrogen 38 mg/dL (7-18) H Creatinine 1.4 MG/DL (0.55-1.30) H Estimat Glomerular Filtration Rate 52.6 mL/min (>60) Glucose Level 307 MG/DL (74-106) H Calcium Level 8.6 MG/DL (8.5-10.1) Total Bilirubin 2.8 MG/DL (0.2-1.0) H Direct Bilirubin 1.4 MG/DL (0.0-0.3) H Aspartate Amino Transf (AST/SGOT) 34 U/L (15-37) Alanine Aminotransferase (ALT/SGPT) 119 U/L (12-78) H Alkaline Phosphatase 184 U/L (46-116) H Total Protein 6.7 G/DL (6.4-8.2) Albumin 2.1 G/DL (3.4-5.0) L Globulin 4.6 g/dL Albumin/Globulin Ratio 0.5 (1.0-2.7) L Vancomycin Level Trough 12.2 ug/mL (5.0-12.0) H Neurologic Exam Objective PHYSICAL EXAMINATION: GENERAL: He is a well developed, well nourished, gentleman, lying in bed, in no acute distress. HEAD: Normocephalic and atraumatic. EENT: Examination benign. NECK: No neck rigidity was observed. NEUROLOGIC EXAMINATION: MENTAL STATUS EXAMINATION: He was arousable on applying deep painful stimuli - he was unable to maintain arousal for more than a few seconds. Further mental status testing was impossible. SPEECH: Could not be tested. LANGUAGE: Could not be tested. CRANIAL NERVE EXAMINATION: II: He did to blink to threat. III, IV & : The external ocular movements were present on oculocephalic maneuvers. The pupils were 3 mm in diameter and did not react to light. V & VII: The corneal reflexes were present and equal. VIII: He did respond to sounds and had no nystagmus. IX & X: The gag reflex was absent. XI: The sternocleidomastoids and trapezii did function. XII: The tongue was in the midline. MOTOR SYSTEM: The tone was normal in all 4 extremities. Examination of muscle mass revealed no focal wasting. 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 Examination of power was impossible to perform because even on applying deep painful stimuli, minimal movements were seen. SENSORY EXAMINATION: He only responded to deep painful stimuli with wincing. REFLEXES: 0 at the biceps, triceps, brachioradialis, knees, and ankles. The right plantar response could not be tested as he had no toes, and the left plantar response was extensor. COORDINATION, STANCE & GAIT: Could not be tested. Impression/Recommendations Diagnostic Impression 1. Mr. Dustin Cornejo is a 57-year-old, gentleman, of unknown handedness, who was hospitalized for right lower extremity cellulitis and then in the hospital deteriorated to a point where became quite altered with regards to his mental state on 03/05/2018 and was transferred to the ICU. He was noted to have atrial fibrillation with a rapid ventricular rate and shortness of breath related to hypoxic respiratory failure and then became agitated as a result of which he was given multiple doses of Ativan, Haldol, and morphine. 2. He continues to be non-verbal. He opens his eyes on painful stimulation. He is moving all 4 extremities minimally on deep pain. As per his nurse he was not given any mind altering drugs today. He has not been agitated. 3. On neurological examination, at this time, he can be aroused on applying deep painful stimuli. Further mental status testing is impossible. He blinks to threat. He does have eye movements on oculocephalic maneuvers, corneal reflexes that are diminished but equal, absent gag reflex, globally absent deep tendon reflexes, and an extensor plantar response on the left side with inability to test the plantar response on the right side because of the absence of toes. 4. His latest laboratory data on my initial evaluation revealed his WBC count was elevated to 13,400. He had his last ESR on 03/02/2018 and it was 7. His blood gases revealed that he had a pH of 7.48, pCO2 of 35, and pO2 of 51. His latest chemistry panel revealed that his sodium was elevated to 155. His chloride was elevated to 118. His BUN was elevated to 41. His creatinine was elevated to 1.3. His glucose was elevated to 208. His total bilirubin was elevated at 2.8. His AST, ALT, and alkaline phosphatase were all elevated. His albumin was low at 2.2. His urine toxicology screen on admission revealed that tetrahydrocannabinols were present. His serologies were negative for HIV. 5. Further laboratory tests revealed a normal B12, Folate, TSH but the Hb A1C was elevated at 9.2%. 6. The CT of the brain done on 03/07/18 revealed atrophy and deep white matter disease but no acute pathology. 7. The EEG revealed a moderate toxic/metabolic encephalopathy. 8. The patient's history, neurological examination, laboratory data, EEG and imaging are most compatible with a severe toxic metabolic encephalopathy, which is multifactorial. Acute intracranial pathology has been excluded. Recommendations 1. Continue present management. 2. Would try to keep the patient off all mind-altering drugs. 3. Correct toxic/metabolic imbalances the best possible. 4. Observe closely. Dawit Marshall M.D., M.S.P.H. Dawit Marshall MD Mar 08, 2018 18:47
[2018-03-08] MEDS: Dyna-Hex 2% Top Sol 2oz TOPIC SCH (20:24)
--- NOTE | 2018-03-08 22:32 | Cardiology Progress Note ---
Assessment/Plan Assessment/Plan 1. Atrial fibrillation with controlled ventricular response, continue carvedilol , digoxin and cardizem, on Eliquis. 2. 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 3. Severe mitral regurgitation, afterload reduction with hydralazine, preload reduction with furosemide. Subjective Subjective Atrial fibrillation with controlled ventricular response at rate of 91 On Venturi mask. Objective Last 24 Hour Vital Signs Date Time Temp Pulse Resp B/P (MAP) Pulse Ox O2 Delivery O2 Flow Rate FiO2 03/08/18 20:27 91 126/86 03/08/18 19:28 97 Venturi Mask 6.0 35 03/08/18 19:28 Venturi Mask 6.0 35 03/08/18 17:47 84 03/08/18 17:19 84 123/80 03/08/18 17:19 123/80 03/08/18 16:00 Venturi Mask 15.0 03/08/18 16:00 97.7 84 30 123/80 (94) 96 03/08/18 13:25 82 03/08/18 12:25 88 125/74 03/08/18 12:24 125/74 03/08/18 12:00 Venturi Mask 15.0 03/08/18 12:00 97.5 88 26 125/74 (91) 98 03/08/18 09:08 85 03/08/18 09:00 85 110/70 03/08/18 08:00 98.5 85 26 124/50 (74) 91 03/08/18 08:00 Venturi Mask 15.0 03/08/18 08:00 82 03/08/18 07:50 68 03/08/18 05:05 85 120/70 03/08/18 05:05 120/70 03/08/18 04:00 98.1 83 26 120/53 (75) 91 03/08/18 04:00 Venturi Mask 15.0 03/08/18 04:00 86 03/08/18 00:00 76 03/08/18 00:00 Venturi Mask 15.0 03/08/18 00:00 98.1 89 32 115/58 (77) 91 03/07/18 23:42 115/58 03/07/18 23:41 80 115/58 Intake and Output 03/07/18 03/08/18 19:00 07:00 Intake Total 1594.25 ml 180 ml Output Total 1800 ml 1000 ml Balance -205.75 ml -820 ml Free Water 500 ml 120 ml IV Total 374.25 ml Tube Feeding 720 ml 60 ml Output Urine Total 1800 ml 1000 ml 2D Echo: LVEF 25%, Bi-atrial enlargement, Severe MR, RVSP 24 mmHg, RAP 15 mmHg Laboratory Tests Test 03/08/18 04:00 03/08/18 09:55 White Blood Count 13.0 K/UL (4.8-10.8) H Red Blood Count 6.09 M/UL (4.70-6.10) Hemoglobin 15.9 G/DL (14.2-18.0) Hematocrit 50.7 % (42.0-52.0) Mean Corpuscular Volume 83 FL (80-99) Mean Corpuscular Hemoglobin 26.2 PG (27.0-31.0) L Mean Corpuscular Hemoglobin Concent 31.4 G/DL (32.0-36.0) L Red Cell Distribution Width 18.3 % (11.6-14.8) H Platelet Count 263 K/UL (150-450) Mean Platelet Volume 9.4 FL (6.5-10.1) Neutrophils (%) (Auto) 81.1 % (45.0-75.0) H Lymphocytes (%) (Auto) 9.1 % (20.0-45.0) L Monocytes (%) (Auto) 6.3 % (1.0-10.0) Eosinophils (%) (Auto) 2.8 % (0.0-3.0) Basophils (%) (Auto) 0.7 % (0.0-2.0) Sodium Level 161 MMOL/L (136-145) *H Potassium Level 3.6 MMOL/L (3.5-5.1) Chloride Level 122 MMOL/L (98-107) H Carbon Dioxide Level 31 MMOL/L (21-32) Anion Gap 8 mmol/L (5-15) Blood Urea Nitrogen 38 mg/dL (7-18) H Creatinine 1.4 MG/DL (0.55-1.30) H Estimat Glomerular Filtration Rate 52.6 mL/min (>60) Glucose Level 307 MG/DL (74-106) H Calcium Level 8.6 MG/DL (8.5-10.1) Total Bilirubin 2.8 MG/DL (0.2-1.0) H Direct Bilirubin 1.4 MG/DL (0.0-0.3) H Aspartate Amino Transf (AST/SGOT) 34 U/L (15-37) Alanine Aminotransferase (ALT/SGPT) 119 U/L (12-78) H Alkaline Phosphatase 184 U/L (46-116) H Total Protein 6.7 G/DL (6.4-8.2) Albumin 2.1 G/DL (3.4-5.0) L Globulin 4.6 g/dL Albumin/Globulin Ratio 0.5 (1.0-2.7) L Vancomycin Level Trough 12.2 ug/mL (5.0-12.0) H Microbiology Date/Time Source Procedure Growth Status 03/06/18 16:30 Sputum Induced Gram Stain - Final Resulted 03/06/18 16:30 Sputum Culture - Preliminary Gram Negative Bacillus 1 Resulted Objective HEENT: Atraumatic and normocephalic. Anicteric. Pupils are equal, round, and reactive to light and accommodation. Extraocular muscles intact. Altered. NECK: JVP elevated about 5cm. No carotid bruits. Carotid upstrokes 2+ bilaterally. CARDIOVASCULAR: Normal S1, S2. Irregularly irregular rhythm. 2/6 Holosystolic murmur, gallop, or rub. LUNGS: Diminished BS both lungs. ABDOMEN: Soft, nontender, and nondistended. No hepatosplenomegaly. Positive bowel sounds. EXTREMITIES: There is 1+ bilateral lower extremity edema with ulcerations. Sudarshan Stuart MD Mar 08, 2018 22:32
[2018-03-08] MEDS ORDERED: DOPamine 400mg/250ml 250 ML IV SCH (22:45)
[2018-03-08] MEDS ORDERED: Nitroglycerin Subl 0.4mg tab SL PRN (23:00)
[2018-03-08] MEDS ORDERED: LORazepam Inj 2mg/ml 1ml IV PRN (23:15)
[2018-03-08] MEDS ORDERED: Morphine Sulfate 4mg/ml Inj (IV/IM USE ONLY) IVP PRN (23:15)
[2018-03-08] MEDS ORDERED: Haloperidol 5mg/ml Inj IM PRN (23:45)
[2018-03-08] MEDS: DOPamine 400mg/250ml 250 ML IV SCH (23:45)
[2018-03-08] MEDS ORDERED: Metoprolol 5mg/5ml Inj IVP PRN (23:45)
[2018-03-09] VITALS (47 sets, daily range): BP systolic 89–128; BP diastolic 49–81
--- NOTE | 2018-03-09 00:16 | Electroencephalogram ---
REQUESTING PHYSICIAN: Mick Garcia D.O. READING PHYSICIAN: Dawit Marshall M.D. DATE OF TRACIN03/07/2018 HISTORY: This EEG was performed on a 57-year-old gentleman with a history of multiple medical problems, who has exhibited a significant alteration in his mental state. There is also a history of a seizure disorder. The purpose of this EEG was to evaluate the patient for the degree and type of cerebral dysfunction. TECHNICAL NOTE: This EEG was performed on [employer] [facility] with electrodes placed on the scalp according to the International 10-20 system. [id number] and [id number] montages were used. The EEG was technically satisfactory and was performed in the awake and drowsy states. OBSERVATIONS: In the best awake state, the background activity consisted of 6.5-7 Hz posterior rhythmic theta activity. Drowsiness was characterized by irregular 4-5 Hz theta with intermixed delta frequencies and the presence of triphasic waveforms. No definite focal abnormalities or epileptiform discharges were seen. IMPRESSION: This is an abnormal EEG characterized by: 1. Slowing of the background in the 6.5-7 Hz theta range in the best awake state. 2. The presence of triphasic waves seen during drowsiness. COMMENT: The study is consistent with an encephalopathy of a moderate degree, most probably with a toxic metabolic component as evidenced by the triphasic waveforms. Dawit Marshall M.D., M.S.P.H. DR: ARAM JOB#: [id number] [facility]
--- NOTE | 2018-03-09 00:57 | Emergency Room Report ---
History of Present Illness General Chief Complaint: Pain Source: Patient, Medical Record, PMD Present Illness Allergies: Coded Allergies: No Known Allergies (Unverified , 02/16/18) Nursing Documentation-[facility] Past Medical History: No History, Except For Hx Cardiac Problems: Yes - CHF Hx Diabetes: Yes Hx Cancer: No Hx Gastrointestinal Problems: No Hx Neurological Problems: No Physical Exam Vital Signs Date Time Temp Pulse Resp B/P (MAP) Pulse Ox O2 Delivery O2 Flow Rate FiO2 03/05/18 07:37 101 03/05/18 08:00 98.4 26 129/71 (90) 97 03/05/18 08:00 Venturi Mask 10.0 03/05/18 14:30 100 Procedures Central Line Central Line : Consent: Emergent Central Line Lumen: triple Maximal Sterile Barrier Tech: yes cap, yes mask, yes sterile gown, yes sterile gloves, yes large sterile sheet, yes hand hygiene, yes chlorhexidine prep Central Line Postion: femoral (R) Anesthesia: Lidocaine cc's of anesthesia: 3 Complications: none Central Line Post Position: sutured Attempts: One Patient Tolerated: Well Complications: None CPR/Code Blue CPR/Code Blue Narrative I was called upstairs to a CODE BLUE Arriving in the stepdown unit CPR is in progress Patient is in asystole Rapid medical history is obtained Secondary evaluation reveals GCS of 3, pupils approximately 3 mm very minimally reactive Accu-Chek was at 170 ACLS protocol continued Patient required airway intubation Please refer to the note for full specifics however there was copious amounts of thick material in the upper airway, also along with vomitus Patient received sodium bicarbonate, calcium chloride, epinephrine Pulses were regained and patient converted to a tachycardic rate with palpable pulses Patient initiated on dopamine drip. After the patient was transferred to the ICU was notified that the line in the left arm had been dislodged and therefore central line was placed refer to my note that specific. And care was handed back to the admitting physician Intubation Intubation : Consent: Emergent Intubation Method: orotracheal Tube Size (cm): 7.5 Breath Sounds after Intubation: equal Intubation Complications: no complications Post Intubation Xray: Yes Attempts: One Patient Tolerated: Well Complications: None Progress copious amounts of secretions in the oral airway Medical Decision Making Diagnostic Impression: Primary Impression: Cardiopulmonary arrest Chest X-Ray Diagnostic Results Chest X-Ray Diagnostic Results : Chest X-Ray Ordered: Yes # of Views/Limited/Complete: 1 View Indication: Other - Intubation EP Interpretation: Yes Interpretation: no effusion, no pneumothorax, other - Increased right upper lobe marking, ET tube approximately 3-4 cm above canelo, borderline cardiomegaly Impression: Other - ET tube appropriate Electronically Signed by: Tom Delatorre DO Last Vital Signs Date Time Temp Pulse Resp B/P (MAP) Pulse Ox O2 Delivery O2 Flow Rate FiO2 03/09/18 00:30 80 18 110/71 (84) 98 03/08/18 23:11 100 03/08/18 22:30 95.4 03/08/18 20:00 Venturi Mask 15.0 Disposition: ADMITTED INPATIENT Condition: Serious Referrals: NOT CHOSEN IPA/,REFERRING (PCP) Tom Delatorre DO Mar 09, 2018 00:57
[2018-03-09] MEDS: DOPamine 400mg/250ml 250 ML IV SCH ×3 (01:00→21:00)
[2018-03-09] MEDS ORDERED: DOPamine 400mg/250ml 250 ML IV ONE (01:28)
[2018-03-09] MEDS ORDERED: LORazepam Inj 2mg/ml 1ml IV PRN (02:00)
[2018-03-09] MEDS ORDERED: Piperacillin/Tazobactam 3.375 GM in NS 110 ML IVPB SCH (04:00)
[2018-03-09] MEDS: HydrALAZINE 25mg tab ORAL SCH ×3 (05:13→18:00)
[2018-03-09] MEDS: dilTIAZem HCl 90mg tab ORAL SCH ×3 (05:13→18:00)
[2018-03-09 05:32] LABS: HEMATOCRIT 51.3 % (42.0-52.0); HEMOGLOBIN 15.9 G/DL (14.2-18.0); MEAN CORPUSCULAR VOLUME 84 FL (80-99); PLATELET COUNT 255 K/UL (150-450); RED BLOOD COUNT 6.13 M/UL (4.70-6.10); WHITE BLOOD COUNT 15.5 K/UL (4.8-10.8)
[2018-03-09 06:03] LABS: ALANINE AMINOTRANSFERASE 100 U/L (12-78); ALBUMIN 1.8 G/DL (3.4-5.0); ALBUMIN/GLOBULIN RATIO 0.4 (1.0-2.7); ALKALINE PHOSPHATASE 185 U/L (46-116); ANION GAP 8 mmol/L (5-15); ASPARTATE AMINO TRANSFERASE 41 U/L (15-37); BILIRUBIN,TOTAL 3.1 MG/DL (0.2-1.0); BLOOD UREA NITROGEN 40 mg/dL (7-18); CALCIUM 8.5 MG/DL (8.5-10.1); CARBON DIOXIDE 33 MMOL/L (21-32); CHLORIDE 119 MMOL/L (98-107); CREATININE 1.6 MG/DL (0.55-1.30); POTASSIUM 3.6 MMOL/L (3.5-5.1); SODIUM 160 MMOL/L (136-145)
[2018-03-09 06:04] LABS: BILIRUBIN,DIRECT 1.6 MG/DL (0.0-0.3)
[2018-03-09] MEDS: NovoLOG Insulin Flexpen SUBQ SCH ×4 (06:27→21:00)
--- NOTE | 2018-03-09 08:40 | Diagnostic Imaging Report ---
Indication: Post nasogastric tube placement Technique: Supine view of the abdomen Comparison: 03/06/2018 Findings: There is a nasogastric tube in place, tip projected at the level gastric fundus, proximal port at the level gastroesophageal junction. Unremarkable bowel gas pattern. There is a right groin central venous catheter in place. There are degenerative changes of the lumbar spine. There are overlying defibrillator paddles Impression: Nasogastric tube is in the stomach, but proximal port is at the gastroesophageal junction and advancement is recommended. Other findings as noted. Findings discussed with patient's nurse at the time of interpretation
[2018-03-09] MEDS: Carvedilol 25mg Tab ORAL SCH ×2 (09:00→21:00)
--- NOTE | 2018-03-09 09:18 | Pulmonolgy Critical Care Note ---
Critical Care - Asmt/Plan Problems: (1) Acute encephalopathy (2) Cellulitis (3) Acute renal failure (4) Diastolic CHF, chronic (5) Diabetes (6) Hyperglycemia (7) A-fib (8) Abnormal LFTs (9) Rapid atrial fibrillation Respiratory: monitor respiratory rate, adjust FIO2, CXR Cardiac: continue to monitor HR/BP Renal: F/U I&O Infectious Disease: check cultures, continue antibiotics Gastrointestinal: continue feedings/current rate Endocrine: monitor blood sugar Hematologic: monitor H/H Neurologic: PRN Ativan, other - will get LP since pts mental status can not be explained by CT findings or general metabolic condition Affect: PRN ativan Prophylaxis: Protonix Disposition: keep in ICU Notes Reviewed: clinical faculty, cardio, renal Discussed with: nurses, consultants, nurse outreach case managerfirst assistant manager - Objective Last 24 Hour Vital Signs Date Time Temp Pulse Resp B/P (MAP) Pulse Ox O2 Delivery O2 Flow Rate FiO2 03/09/18 08:39 94 33 70 03/09/18 08:04 80 03/09/18 08:00 99.1 86 19 98/60 (73) 97 03/09/18 07:30 88 22 96/59 (71) 97 03/09/18 07:08 81 22 80 03/09/18 07:00 87 20 99/59 (72) 97 03/09/18 07:00 99/59 03/09/18 06:30 100.7 97 15 89/49 (62) 96 03/09/18 06:00 96 16 110/71 (84) 97 03/09/18 06:00 89/64 03/09/18 05:30 91 22 102/63 (76) 97 03/09/18 05:20 91 20 80 03/09/18 05:00 89 17 95/67 (76) 96 03/09/18 05:00 116/69 03/09/18 04:30 89 20 100/67 (78) 96 03/09/18 04:00 Mechanical Ventilator 03/09/18 04:00 98.9 90 21 96/59 (71) 95 03/09/18 04:00 99/50 03/09/18 04:00 80 03/09/18 03:30 92 16 120/74 (89) 99 03/09/18 03:30 96 19 80 03/09/18 03:00 91 16 104/69 (81) 99 03/09/18 03:00 120/50 03/09/18 02:30 90 16 104/67 (79) 99 03/09/18 02:00 88 16 116/73 (87) 99 03/09/18 02:00 96/45 03/09/18 01:30 94 15 113/76 (88) 99 03/09/18 01:00 98.5 83 14 112/65 (81) 100 03/09/18 01:00 120/77 03/09/18 01:00 113/76 03/09/18 01:00 89 16 100 03/09/18 00:30 80 18 110/71 (84) 98 03/09/18 00:00 95 03/09/18 00:00 Mechanical Ventilator 03/09/18 00:00 89 18 114/66 (82) 97 03/08/18 23:45 70/39 03/08/18 23:30 88 17 102/62 (75) 97 03/08/18 23:11 100 03/08/18 23:00 81 23 76/42 (53) 98 03/08/18 22:39 88 22 100 03/08/18 22:30 95.4 103 17 103/57 (72) 96 03/08/18 20:27 91 126/86 03/08/18 20:00 Venturi Mask 15.0 03/08/18 20:00 97.5 84 40 126/86 (99) 96 03/08/18 20:00 70 03/08/18 19:28 97 Venturi Mask 6.0 35 03/08/18 19:28 Venturi Mask 6.0 35 03/08/18 17:47 84 03/08/18 17:19 84 123/80 03/08/18 17:19 123/80 03/08/18 16:00 Venturi Mask 15.0 03/08/18 16:00 97.7 84 30 123/80 (94) 96 03/08/18 13:25 82 03/08/18 12:25 88 125/74 03/08/18 12:24 125/74 03/08/18 12:00 Venturi Mask 15.0 03/08/18 12:00 97.5 88 26 125/74 (91) 98 Status: obtunded Condition: critical HEENT: atraumatic Neck: full ROM Heart: HR/BP unstable Abdomen: non-tender, feeding tube Extremities: no C/C/E Micro: Microbiology Date/Time Source Procedure Growth Status 03/06/18 16:30 Sputum Induced Gram Stain - Final Complete 03/06/18 16:30 Sputum Culture - Final Escherichia Coli - Esbl Complete Accucheck: 359 Critical Care - Subjective ROS Limited/Unobtainable: Yes Condition: critical EKG Rhythm: Sinus Rhythm FI02: 70 Vent Support Breath Rate: 16 Vent Support Mode: AC Vent Tidal Volume: 600 Sputum Amount: Scant PEEP: 5.0 PIP: 24 Fluids: d5 100 cc/hour Tube Feeding Amount: 60 I&O: Intake and Output 03/08/18 03/09/18 18:59 06:59 Intake Total 2016.67 ml 1462.0 ml Output Total 1000 ml 390 ml Balance 1016.67 ml 1072.0 ml Free Water 500 ml IV Total 1036.67 ml 1462.0 ml Tube Feeding 480 ml Output Urine Total 1000 ml 390 ml CXR: ET in good position ET-Tube: 7.5 ET Position: 23 Labs: Laboratory Tests Test 03/08/18 09:55 03/08/18 23:49 03/09/18 04:00 Vancomycin Level Trough 12.2 ug/mL (5.0-12.0) H Arterial Blood pH 7.413 (7.350-7.450) Arterial Blood Partial Pressure CO2 54.5 mmHg (35.0-45.0) H Arterial Blood Partial Pressure O2 98.9 mmHg (75.0-100.0) Arterial Blood HCO3 34.0 mmol/L (22.0-26.0) H Arterial Blood Oxygen Saturation 96.7 % (95-100) Arterial Blood Base Excess 7.4 (-2-2) H Janes Test Positive White Blood Count 15.5 K/UL (4.8-10.8) H Red Blood Count 6.13 M/UL (4.70-6.10) H Hemoglobin 15.9 G/DL (14.2-18.0) Hematocrit 51.3 % (42.0-52.0) Mean Corpuscular Volume 84 FL (80-99) Mean Corpuscular Hemoglobin 25.9 PG (27.0-31.0) L Mean Corpuscular Hemoglobin Concent 30.9 G/DL (32.0-36.0) L Red Cell Distribution Width 18.0 % (11.6-14.8) H Platelet Count 255 K/UL (150-450) Mean Platelet Volume 7.9 FL (6.5-10.1) Neutrophils (%) (Auto) % (45.0-75.0) Lymphocytes (%) (Auto) % (20.0-45.0) Monocytes (%) (Auto) % (1.0-10.0) Eosinophils (%) (Auto) % (0.0-3.0) Basophils (%) (Auto) % (0.0-2.0) Differential Total Cells Counted 100 Neutrophils % (Manual) 81 % (45-75) H Lymphocytes % (Manual) 5 % (20-45) L Monocytes % (Manual) 9 % (1-10) Eosinophils % (Manual) 0 % (0-3) Basophils % (Manual) 0 % (0-2) Band Neutrophils 5 % (0-8) Platelet Estimate Adequate Platelet Morphology Normal Hypochromasia 2+ Anisocytosis 2+ Sodium Level 160 MMOL/L (136-145) H Potassium Level 3.6 MMOL/L (3.5-5.1) Chloride Level 119 MMOL/L (98-107) H Carbon Dioxide Level 33 MMOL/L (21-32) H Anion Gap 8 mmol/L (5-15) Blood Urea Nitrogen 40 mg/dL (7-18) H Creatinine 1.6 MG/DL (0.55-1.30) H Estimat Glomerular Filtration Rate 45.1 mL/min (>60) Glucose Level 353 MG/DL (74-106) H Calcium Level 8.5 MG/DL (8.5-10.1) Total Bilirubin 3.1 MG/DL (0.2-1.0) H Direct Bilirubin 1.6 MG/DL (0.0-0.3) H Aspartate Amino Transf (AST/SGOT) 41 U/L (15-37) H Alanine Aminotransferase (ALT/SGPT) 100 U/L (12-78) H Alkaline Phosphatase 185 U/L (46-116) H Pro-B-Type Natriuretic Peptide 9247 pg/mL (0-125) H Total Protein 6.6 G/DL (6.4-8.2) Albumin 1.8 G/DL (3.4-5.0) L Globulin 4.8 g/dL Albumin/Globulin Ratio 0.4 (1.0-2.7) L Sunita Sahni MD Mar 09, 2018 09:18
--- NOTE | 2018-03-09 09:45 | Diagnostic Imaging Report ---
Indication: Post intubation Technique: One view of the chest Comparison: 03/06/2018 Findings: Interim endotracheal intubation. Endotracheal tube tip projects approximately 4 cm above the canelo. There are overlying defibrillator paddles. There is increasing parenchymal opacity in the right lung. There is decreased right basilar parenchymal opacity. There is slight blunting of the right costophrenic sulcus which appears decreased since prior study. The heart size is normal. Nasogastric tube is in place, tip position obscured by soft tissue Impression: Satisfactory endotracheal intubation Indeterminate nasogastric tube tip position Increasing right upper lung parenchymal opacity may reflect developing infiltrate in the right upper lobe. There is improved aeration of the right lung base Possible small right pleural effusion This agrees with the preliminary interpretation provided overnight by [facility] teleradiology service.
[2018-03-09] MEDS: Pantoprazole Inj IV SCH (09:55)
[2018-03-09] MEDS: Digoxin 0.5mg/2ml Inj IVP SCH (10:17)
--- NOTE | 2018-03-09 10:19 | Infectious Diseases Prog Note ---
Assessment/Plan Assessment/Plan Assessment: s/p Code blue 03/08 Aspiration PNA -sp cx ESBL E.coli (S Zosyn, Erta) -03/08 cXR: Increasing right upper lung parenchymal opacity may reflect developing infiltrate in the right upper lobe. There is improved aeration of the right lung base -CXR: Improved aeration of the right lung, presumably representing improving atelectasis. Right lower lobe infiltrate. There may also be pleural fluid on the right. Bilateral interstitial disease. Probably on the basis of pulmonary edema. However, considerable central bronchial wall thickening suggests a significant chronic component Acute respiratory failure- due to Afib w/ RVR- n ow intubated 03/08 after Code blue B/l LE purulent cellulitis- legs with scratches (self inflicted) -wound cx MRSA -L foot tibia/fibula xray: No acute process -R foot tibia/fibula xray: No acute bony trauma Fever, improving Leukocytosis, increasing Afib w/ RVR ElevatedLFTs, improving - HIDA inconclusive but low prob for acute cholecysitis -HIDA: Questionable very small tracer collection in the region of the gallbladder fossa on delayed images, could represent partial filling of a nondistended gallbladder but this is not conclusive. Acute cholecystitis doubtful but not conclusively excluded based on these images and prior ultrasound, which showed a nondistended gallbladder. Patent common bile duct -Abd US: Cholelithiasis. Borderline gallbladder wall thickening, could indicate early acute cholecystitis changes. Consider hepatobiliary nuclear scan if there is high clinical suspicion. Negative for dilated ducts Incidental finding bilateral pleural effusions -acute hep panel, HIV sc neg ZHAO, resolving DM2 HTN CHF Schizoaffective disorder Plan: -Continue empiric IV Vancomycin #01/14 for cellulitis -Switch ZOsyn #4 (abx d#5) to Ertapenem for ESBL E.coli PNA -03/06 SP Ceftriaxone #2 -03/03 SP Ancef #2 -03/01 SP Cefepime #2 -f/u cx -Monitor CBC/CMP, temperatures -wound care -Sx, GI f/u Thank you for this consultation. Will continue to follow along with you. Discussed with RN. Subjective Allergies: Coded Allergies: No Known Allergies (Unverified , 02/16/18) Subjective patient had code blue last night, was intubated and transferred to ICU Upon intubation there was copious amounts of thick material in the upper airway and vomtus Objective Vital Signs Last 24 Hour Vital Signs Date Time Temp Pulse Resp B/P (MAP) Pulse Ox O2 Delivery O2 Flow Rate FiO2 03/09/18 09:30 88 20 96/62 (73) 96 03/09/18 09:00 97/67 03/09/18 09:00 90 19 97/71 (80) 97 03/09/18 08:39 94 33 70 03/09/18 08:30 88 21 105/66 (79) 97 03/09/18 08:04 80 03/09/18 08:00 99.1 86 19 98/60 (73) 97 03/09/18 08:00 98/60 03/09/18 08:00 Mechanical Ventilator 03/09/18 08:00 90 03/09/18 07:30 88 22 96/59 (71) 97 03/09/18 07:08 81 22 80 03/09/18 07:00 87 20 99/59 (72) 97 03/09/18 07:00 99/59 03/09/18 06:30 100.7 97 15 89/49 (62) 96 03/09/18 06:00 96 16 110/71 (84) 97 03/09/18 06:00 89/64 03/09/18 05:30 91 22 102/63 (76) 97 03/09/18 05:20 91 20 80 03/09/18 05:00 89 17 95/67 (76) 96 03/09/18 05:00 116/69 03/09/18 04:30 89 20 100/67 (78) 96 03/09/18 04:00 Mechanical Ventilator 03/09/18 04:00 98.9 90 21 96/59 (71) 95 03/09/18 04:00 99/50 03/09/18 04:00 80 03/09/18 03:30 92 16 120/74 (89) 99 03/09/18 03:30 96 19 80 03/09/18 03:00 91 16 104/69 (81) 99 03/09/18 03:00 120/50 03/09/18 02:30 90 16 104/67 (79) 99 03/09/18 02:00 88 16 116/73 (87) 99 03/09/18 02:00 96/45 12/7/18 01:30 94 15 113/76 (88) 99 03/09/18 01:00 98.5 83 14 112/65 (81) 100 03/09/18 01:00 120/77 03/09/18 01:00 113/76 03/09/18 01:00 89 16 100 03/09/18 00:30 80 18 110/71 (84) 98 03/09/18 00:00 95 03/09/18 00:00 Mechanical Ventilator 03/09/18 00:00 89 18 114/66 (82) 97 03/08/18 23:45 70/39 03/08/18 23:30 88 17 102/62 (75) 97 03/08/18 23:11 100 03/08/18 23:00 81 23 76/42 (53) 98 03/08/18 22:39 88 22 100 03/08/18 22:30 95.4 103 17 103/57 (72) 96 03/08/18 20:27 91 126/86 03/08/18 20:00 Venturi Mask 15.0 03/08/18 20:00 97.5 84 40 126/86 (99) 96 03/08/18 20:00 70 03/08/18 19:28 97 Venturi Mask 6.0 35 03/08/18 19:28 Venturi Mask 6.0 35 03/08/18 17:47 84 03/08/18 17:19 84 123/80 03/08/18 17:19 123/80 03/08/18 16:00 Venturi Mask 15.0 03/08/18 16:00 97.7 84 30 123/80 (94) 96 03/08/18 13:25 82 03/08/18 12:25 88 125/74 03/08/18 12:24 125/74 03/08/18 12:00 Venturi Mask 15.0 03/08/18 12:00 97.5 88 26 125/74 (91) 98 Height (Feet): 6 Height (Inches): 0.00 Weight (Pounds): 270 Objective General Appearance: WD/WN Lines, tubes and drains: peripheral HEENT: normocephalic, atraumatic Neck: non-tender, normal alignment Respiratory/Chest: chest wall non-tender, lungs clear Breasts: no masses Cardiovascular/Chest: normal peripheral pulses Abdomen: normal bowel sounds, non tender Extremities: B/l leg erythema, swelling, with scratches and some minimal drainage Microbiology Date/Time Source Procedure Growth Status 03/06/18 16:30 Sputum Induced Gram Stain - Final Complete 03/06/18 16:30 Sputum Culture - Final Escherichia Coli - Esbl Complete Laboratory Tests Test 03/08/18 23:49 03/09/18 04:00 Arterial Blood pH 7.413 (7.350-7.450) Arterial Blood Partial Pressure CO2 54.5 mmHg (35.0-45.0) H Arterial Blood Partial Pressure O2 98.9 mmHg (75.0-100.0) Arterial Blood HCO3 34.0 mmol/L (22.0-26.0) H Arterial Blood Oxygen Saturation 96.7 % (95-100) Arterial Blood Base Excess 7.4 (-2-2) H Janes Test Positive White Blood Count 15.5 K/UL (4.8-10.8) H Red Blood Count 6.13 M/UL (4.70-6.10) H Hemoglobin 15.9 G/DL (14.2-18.0) Hematocrit 51.3 % (42.0-52.0) Mean Corpuscular Volume 84 FL (80-99) Mean Corpuscular Hemoglobin 25.9 PG (27.0-31.0) L Mean Corpuscular Hemoglobin Concent 30.9 G/DL (32.0-36.0) L Red Cell Distribution Width 18.0 % (11.6-14.8) H Platelet Count 255 K/UL (150-450) Mean Platelet Volume 7.9 FL (6.5-10.1) Neutrophils (%) (Auto) % (45.0-75.0) Lymphocytes (%) (Auto) % (20.0-45.0) Monocytes (%) (Auto) % (1.0-10.0) Eosinophils (%) (Auto) % (0.0-3.0) Basophils (%) (Auto) % (0.0-2.0) Differential Total Cells Counted 100 Neutrophils % (Manual) 81 % (45-75) H Lymphocytes % (Manual) 5 % (20-45) L Monocytes % (Manual) 9 % (1-10) Eosinophils % (Manual) 0 % (0-3) Basophils % (Manual) 0 % (0-2) Band Neutrophils 5 % (0-8) Platelet Estimate Adequate Platelet Morphology Normal Hypochromasia 2+ Anisocytosis 2+ Sodium Level 160 MMOL/L (136-145) H Potassium Level 3.6 MMOL/L (3.5-5.1) Chloride Level 119 MMOL/L (98-107) H Carbon Dioxide Level 33 MMOL/L (21-32) H Anion Gap 8 mmol/L (5-15) Blood Urea Nitrogen 40 mg/dL (7-18) H Creatinine 1.6 MG/DL (0.55-1.30) H Estimat Glomerular Filtration Rate 45.1 mL/min (>60) Glucose Level 353 MG/DL (74-106) H Calcium Level 8.5 MG/DL (8.5-10.1) Total Bilirubin 3.1 MG/DL (0.2-1.0) H Direct Bilirubin 1.6 MG/DL (0.0-0.3) H Aspartate Amino Transf (AST/SGOT) 41 U/L (15-37) H Alanine Aminotransferase (ALT/SGPT) 100 U/L (12-78) H Alkaline Phosphatase 185 U/L (46-116) H Pro-B-Type Natriuretic Peptide 9247 pg/mL (0-125) H Total Protein 6.6 G/DL (6.4-8.2) Albumin 1.8 G/DL (3.4-5.0) L Globulin 4.8 g/dL Albumin/Globulin Ratio 0.4 (1.0-2.7) L Current Medications Medications (Trade) Dose Ordered Sig/Roseline Route PRN Reason Start Time Stop Time Status Last Admin Dose Admin Acetaminophen (Tylenol) 650 mg Q4H PRN ORAL fever (temp>100.5F) 03/08/18 23:45 03/30/18 19:44 Apixaban (Eliquis) 5 mg Q12HR ORAL 03/09/18 09:00 04/04/18 20:59 Carvedilol (Coreg) 25 mg EVERY 12 HOURS ORAL 03/09/18 09:00 04/02/18 20:59 Chlorhexidine Gluconate (Ashley-Hex 2%) 1 applic DAILY@1999 TOPIC 03/09/18 20:00 04/01/18 19:59 Dextrose 1,000 ml @ 100 mls/hr Q10H IV 03/08/18 23:00 04/07/18 10:59 03/08/18 23:00 Dextrose (Dextrose 50%) 25 ml Q30M PRN IV Hypoglycemia 03/08/18 23:00 03/30/18 13:59 Dextrose (Dextrose 50%) 50 ml Q30M PRN IV Hypoglycemia 03/08/18 23:00 03/30/18 13:59 Digoxin (Lanoxin) 0.125 mg DAILY IVP 03/09/18 09:00 04/02/18 14:21 Diltiazem HCl (Cardizem) 90 mg EVERY 6 HOURS ORAL 03/09/18 00:00 04/06/18 11:59 Dopamine HCl/ Dextrose 250 ml @ 0 mls/hr Q24H IV 03/09/18 10:00 04/08/18 09:59 Furosemide (Lasix) 40 mg DAILY ORAL 03/09/18 09:00 04/04/18 08:59 Haloperidol Lactate (Haldol) 5 mg Q4H PRN IM Agitation 03/08/18 23:45 03/31/18 19:44 Hydralazine HCl (Apresoline) 25 mg Q6HR ORAL 03/09/18 00:00 04/04/18 18:21 Insulin Aspart (NovoLOG) BEFORE MEALS AND HS SUBQ 03/09/18 06:30 03/31/18 16:29 03/09/18 06:27 Lorazepam (Ativan 2mg/ml 1ml) 1 mg Q4H PRN IV For Anxiety 03/09/18 02:00 03/14/18 17:59 Lorazepam (Ativan 2mg/ml 1ml) 2 mg Q4H PRN IV For more severe Anxiety 03/08/18 23:15 03/15/18 23:14 Metoprolol Tartrate (Lopressor) 10 mg Q1H PRN IVP Heart rate >120 per minute 03/08/18 23:45 03/31/18 19:44 Morphine Sulfate (Morphine Sulfate) 4 mg Q4H PRN IVP For Pain 03/08/18 23:15 03/15/18 23:14 Nitroglycerin (Ntg) 0.4 mg Q5M PRN SL Prn Chest Pain 03/08/18 23:00 03/30/18 18:20 Ondansetron HCl (Zofran) 4 mg Q6H PRN IVP Nausea & Vomiting 03/09/18 01:45 04/05/18 19:44 Pantoprazole (Protonix) 40 mg DAILY IV 03/09/18 09:00 04/08/18 08:59 Piperacillin Sod/ Tazobactam Sod 3.375 gm/Sodium Chloride 110 ml @ 27.5 mls/hr Q8H IVPB 03/09/18 04:00 03/14/18 19:59 03/09/18 04:00 Polyethylene Glycol (Miralax) 17 gm DAILYPRN PRN ORAL Constipation 03/09/18 19:45 04/05/18 19:44 Temazepam (Restoril) 15 mg HSPRN PRN ORAL Insomnia 03/09/18 19:45 03/13/18 19:44 Vancomycin HCl (Vanco rx to dose) 1 ea DAILY PRN MISC rx protocol 03/09/18 09:00 04/05/18 19:44 Vancomycin/Sodium Chloride 250 ml @ 167 mls/hr Q12H IVPB 03/08/18 23:00 03/11/18 22:59 03/08/18 23:00 Susan Dennis M.D. Mar 09, 2018 10:19
--- NOTE | 2018-03-09 10:48 | GI Progress Note ---
Assessment/Plan Problems: (1) Dysphagia ICD Codes: R13.10 - Dysphagia, unspecified SNOMED: 28157754, 192828199 (2) Drug abuse ICD Codes: F19.10 - Other psychoactive substance abuse, uncomplicated SNOMED: 55084884 (3) Encounter for PEG (percutaneous endoscopic gastrostomy) ICD Codes: Z43.1 - Encounter for attention to gastrostomy SNOMED: 476186634, 532773435 (4) Diastolic CHF, chronic ICD Codes: I50.32 - Chronic diastolic (congestive) heart failure SNOMED: 88697853, 384244617 (5) Abnormal LFTs ICD Codes: R94.5 - Abnormal results of liver function studies SNOMED: 514129332 Status: stable Status Narrative Discussed with Dr. Noe. Assessment/Plan us reviewed >> Cholelithiasis. Borderline gallbladder wall thickening, could indicate early acute cholecystitis changes. neg hepatitis panel HIDA negative LFTs still elevated, trend ST evaluation noted cont NGTFs, will consider PEG if no patient does not improve electrolyte correction prn transfusions ppi fu labs The patient was seen and examined at bedside and all new and available data was reviewed in the patients chart. I agree with the above findings, impression and plan. (Patient seen earlier today. Signature stamp does not reflect patient encounter time.). - Khalif Noe MD Subjective Subjective limited Objective Last 24 Hour Vital Signs Date Time Temp Pulse Resp B/P (MAP) Pulse Ox O2 Delivery O2 Flow Rate FiO2 03/09/18 10:30 85 20 110/72 (85) 97 03/09/18 10:17 89 03/09/18 10:08 108/71 03/09/18 10:00 86 20 102/66 (78) 96 03/09/18 10:00 102/66 03/09/18 09:30 88 20 96/62 (73) 96 03/09/18 09:00 97/67 03/09/18 09:00 90 19 97/71 (80) 97 03/09/18 08:39 94 33 70 03/09/18 08:30 88 21 105/66 (79) 97 03/09/18 08:04 80 03/09/18 08:00 99.1 86 19 98/60 (73) 97 03/09/18 08:00 98/60 03/09/18 08:00 Mechanical Ventilator 12/7/18 08:00 90 03/09/18 07:30 88 22 96/59 (71) 97 03/09/18 07:08 81 22 80 03/09/18 07:00 87 20 99/59 (72) 97 03/09/18 07:00 99/59 03/09/18 06:30 100.7 97 15 89/49 (62) 96 03/09/18 06:00 96 16 110/71 (84) 97 03/09/18 06:00 89/64 03/09/18 05:30 91 22 102/63 (76) 97 03/09/18 05:20 91 20 80 03/09/18 05:00 89 17 95/67 (76) 96 03/09/18 05:00 116/69 03/09/18 04:30 89 20 100/67 (78) 96 03/09/18 04:00 Mechanical Ventilator 03/09/18 04:00 98.9 90 21 96/59 (71) 95 03/09/18 04:00 99/50 03/09/18 04:00 80 03/09/18 03:30 92 16 120/74 (89) 99 03/09/18 03:30 96 19 80 03/09/18 03:00 91 16 104/69 (81) 99 03/09/18 03:00 120/50 03/09/18 02:30 90 16 104/67 (79) 99 03/09/18 02:00 88 16 116/73 (87) 99 03/09/18 02:00 96/45 03/09/18 01:30 94 15 113/76 (88) 99 03/09/18 01:00 98.5 83 14 112/65 (81) 100 03/09/18 01:00 120/77 03/09/18 01:00 113/76 03/09/18 01:00 89 16 100 03/09/18 00:30 80 18 110/71 (84) 98 03/09/18 00:00 95 03/09/18 00:00 Mechanical Ventilator 03/09/18 00:00 89 18 114/66 (82) 97 03/08/18 23:45 70/39 03/08/18 23:30 88 17 102/62 (75) 97 03/08/18 23:11 100 03/08/18 23:00 81 23 76/42 (53) 98 03/08/18 22:39 88 22 100 03/08/18 22:30 95.4 103 17 103/57 (72) 96 03/08/18 20:27 91 126/86 03/08/18 20:00 Venturi Mask 15.0 03/08/18 20:00 97.5 84 40 126/86 (99) 96 03/08/18 20:00 70 03/08/18 19:28 97 Venturi Mask 6.0 35 03/08/18 19:28 Venturi Mask 6.0 35 03/08/18 17:47 84 03/08/18 17:19 84 123/80 03/08/18 17:19 123/80 03/08/18 16:00 Venturi Mask 15.0 03/08/18 16:00 97.7 84 30 123/80 (94) 96 03/08/18 13:25 82 03/08/18 12:25 88 125/74 03/08/18 12:24 125/74 03/08/18 12:00 Venturi Mask 15.0 03/08/18 12:00 97.5 88 26 125/74 (91) 98 Intake and Output 03/08/18 03/09/18 18:59 06:59 Intake Total 2016.67 ml 1462.0 ml Output Total 1000 ml 390 ml Balance 1016.67 ml 1072.0 ml Free Water 500 ml IV Total 1036.67 ml 1462.0 ml Tube Feeding 480 ml Output Urine Total 1000 ml 390 ml Laboratory Tests Test 03/08/18 23:49 03/09/18 04:00 Arterial Blood pH 7.413 (7.350-7.450) Arterial Blood Partial Pressure CO2 54.5 mmHg (35.0-45.0) H Arterial Blood Partial Pressure O2 98.9 mmHg (75.0-100.0) Arterial Blood HCO3 34.0 mmol/L (22.0-26.0) H Arterial Blood Oxygen Saturation 96.7 % (95-100) Arterial Blood Base Excess 7.4 (-2-2) H Janes Test Positive White Blood Count 15.5 K/UL (4.8-10.8) H Red Blood Count 6.13 M/UL (4.70-6.10) H Hemoglobin 15.9 G/DL (14.2-18.0) Hematocrit 51.3 % (42.0-52.0) Mean Corpuscular Volume 84 FL (80-99) Mean Corpuscular Hemoglobin 25.9 PG (27.0-31.0) L Mean Corpuscular Hemoglobin Concent 30.9 G/DL (32.0-36.0) L Red Cell Distribution Width 18.0 % (11.6-14.8) H Platelet Count 255 K/UL (150-450) Mean Platelet Volume 7.9 FL (6.5-10.1) Neutrophils (%) (Auto) % (45.0-75.0) Lymphocytes (%) (Auto) % (20.0-45.0) Monocytes (%) (Auto) % (1.0-10.0) Eosinophils (%) (Auto) % (0.0-3.0) Basophils (%) (Auto) % (0.0-2.0) Differential Total Cells Counted 100 Neutrophils % (Manual) 81 % (45-75) H Lymphocytes % (Manual) 5 % (20-45) L Monocytes % (Manual) 9 % (1-10) Eosinophils % (Manual) 0 % (0-3) Basophils % (Manual) 0 % (0-2) Band Neutrophils 5 % (0-8) Platelet Estimate Adequate Platelet Morphology Normal Hypochromasia 2+ Anisocytosis 2+ Sodium Level 160 MMOL/L (136-145) H Potassium Level 3.6 MMOL/L (3.5-5.1) Chloride Level 119 MMOL/L (98-107) H Carbon Dioxide Level 33 MMOL/L (21-32) H Anion Gap 8 mmol/L (5-15) Blood Urea Nitrogen 40 mg/dL (7-18) H Creatinine 1.6 MG/DL (0.55-1.30) H Estimat Glomerular Filtration Rate 45.1 mL/min (>60) Glucose Level 353 MG/DL (74-106) H Calcium Level 8.5 MG/DL (8.5-10.1) Total Bilirubin 3.1 MG/DL (0.2-1.0) H Direct Bilirubin 1.6 MG/DL (0.0-0.3) H Aspartate Amino Transf (AST/SGOT) 41 U/L (15-37) H Alanine Aminotransferase (ALT/SGPT) 100 U/L (12-78) H Alkaline Phosphatase 185 U/L (46-116) H Pro-B-Type Natriuretic Peptide 9247 pg/mL (0-125) H Total Protein 6.6 G/DL (6.4-8.2) Albumin 1.8 G/DL (3.4-5.0) L Globulin 4.8 g/dL Albumin/Globulin Ratio 0.4 (1.0-2.7) L Height (Feet): 6 Height (Inches): 0.00 Weight (Pounds): 270 General Appearance: no apparent distress, thin, obese Cardiovascular: normal rate Respiratory/Chest: normal breath sounds, no respiratory distress, other - intubated Abdominal Exam: normal bowel sounds, non tender, soft, other - NGT Extremities: non-tender Efraín Hernandez NP Mar 09, 2018 10:48
[2018-03-09] MEDS: Vancomycin 750mg/NS 250ml 250 ML IVPB SCH ×2 (11:27→23:23)
[2018-03-09] MEDS: Eliquis 2.5mg tablet ORAL SCH ×2 (12:00→21:00)
[2018-03-09] MEDS: Furosemide 40mg tab ORAL SCH (12:00)
[2018-03-09] MEDS: Ertapenem 1 GM in NS 55 ML IVPB SCH (12:00)
--- NOTE | 2018-03-09 12:13 | General Progress Note ---
Assessment/Plan Problem List: (1) Diabetes ICD Codes: E11.9 - Type 2 diabetes mellitus without complications SNOMED: 93912602 (2) Cellulitis ICD Codes: L03.90 - Cellulitis, unspecified SNOMED: 003818651 (3) Acute renal failure ICD Codes: N17.9 - Acute kidney failure, unspecified SNOMED: 10084440 (4) Rapid atrial fibrillation ICD Codes: I48.91 - Unspecified atrial fibrillation SNOMED: 425710658 Status: unchanged Assessment/Plan vent cardio f/u abx cbc bmp am Subjective Constitutional: Reports: weakness Allergies: Coded Allergies: No Known Allergies (Unverified , 02/16/18) All Systems: reviewed and negative except above Subjective intub sedated ng in icu Objective Last 24 Hour Vital Signs Date Time Temp Pulse Resp B/P (MAP) Pulse Ox O2 Delivery O2 Flow Rate FiO2 03/09/18 11:30 85 19 117/81 (93) 97 03/09/18 11:00 125/73 03/09/18 11:00 97 22 125/73 (90) 98 03/09/18 10:45 95 19 60 03/09/18 10:30 85 20 110/72 (85) 97 03/09/18 10:17 89 03/09/18 10:08 108/71 03/09/18 10:00 86 20 102/66 (78) 96 03/09/18 10:00 102/66 03/09/18 09:30 88 20 96/62 (73) 96 03/09/18 09:00 90 97/71 03/09/18 09:00 97/67 03/09/18 09:00 90 19 97/71 (80) 97 03/09/18 08:39 94 33 70 03/09/18 08:30 88 21 105/66 (79) 97 03/09/18 08:04 80 03/09/18 08:00 99.1 86 19 98/60 (73) 97 03/09/18 08:00 98/60 03/09/18 08:00 Mechanical Ventilator 03/09/18 08:00 90 03/09/18 07:30 88 22 96/59 (71) 97 03/09/18 07:08 81 22 80 03/09/18 07:00 87 20 99/59 (72) 97 03/09/18 07:00 99/59 03/09/18 06:30 100.7 97 15 89/49 (62) 96 03/09/18 06:00 96 16 110/71 (84) 97 03/09/18 06:00 89/64 03/09/18 05:30 91 22 102/63 (76) 97 03/09/18 05:20 91 20 80 03/09/18 05:00 89 17 95/67 (76) 96 03/09/18 05:00 116/69 03/09/18 04:30 89 20 100/67 (78) 96 03/09/18 04:00 Mechanical Ventilator 03/09/18 04:00 98.9 90 21 96/59 (71) 95 03/09/18 04:00 99/50 03/09/18 04:00 80 03/09/18 03:30 92 16 120/74 (89) 99 03/09/18 03:30 96 19 80 03/09/18 03:00 91 16 104/69 (81) 99 03/09/18 03:00 120/50 03/09/18 02:30 90 16 104/67 (79) 99 03/09/18 02:00 88 16 116/73 (87) 99 03/09/18 02:00 96/45 03/09/18 01:30 94 15 113/76 (88) 99 03/09/18 01:00 98.5 83 14 112/65 (81) 100 03/09/18 01:00 120/77 03/09/18 01:00 113/76 03/09/18 01:00 89 16 100 03/09/18 00:30 80 18 110/71 (84) 98 03/09/18 00:00 95 03/09/18 00:00 Mechanical Ventilator 03/09/18 00:00 89 18 114/66 (82) 97 03/08/18 23:45 70/39 03/08/18 23:30 88 17 102/62 (75) 97 03/08/18 23:11 100 03/08/18 23:00 81 23 76/42 (53) 98 03/08/18 22:39 88 22 100 03/08/18 22:30 95.4 103 17 103/57 (72) 96 03/08/18 20:27 91 126/86 03/08/18 20:00 Venturi Mask 15.0 03/08/18 20:00 97.5 84 40 126/86 (99) 96 03/08/18 20:00 70 03/08/18 19:28 97 Venturi Mask 6.0 35 03/08/18 19:28 Venturi Mask 6.0 35 03/08/18 17:47 84 03/08/18 17:19 84 123/80 03/08/18 17:19 123/80 03/08/18 16:00 Venturi Mask 15.0 03/08/18 16:00 97.7 84 30 123/80 (94) 96 03/08/18 13:25 82 03/08/18 12:25 88 125/74 03/08/18 12:24 125/74 Intake and Output 03/08/18 03/09/18 18:59 06:59 Intake Total 2016.67 ml 1462.0 ml Output Total 1000 ml 390 ml Balance 1016.67 ml 1072.0 ml Free Water 500 ml IV Total 1036.67 ml 1462.0 ml Tube Feeding 480 ml Output Urine Total 1000 ml 390 ml Laboratory Tests 03/08/18 23:49: Arterial Blood pH 7.413, Arterial Blood Partial Pressure CO2 54.5H, Arterial Blood Partial Pressure O2 98.9, Arterial Blood HCO3 34.0H, Arterial Blood Oxygen Saturation 96.7, Arterial Blood Base Excess 7.4H, Janes Test Positive 03/09/18 04:00: White Blood Count 15.5H, Red Blood Count 6.13H, Hemoglobin 15.9, Hematocrit 51.3 , Mean Corpuscular Volume 84, Mean Corpuscular Hemoglobin 25.9L, Mean Corpuscular Hemoglobin Concent 30.9L, Red Cell Distribution Width 18.0H, Platelet Count 255, Mean Platelet Volume 7.9, Neutrophils (%) (Auto) , Lymphocytes (%) (Auto) , Monocytes (%) (Auto) , Eosinophils (%) (Auto) , Basophils (%) (Auto) , Differential Total Cells Counted 100, Neutrophils % ( Manual) 81H, Lymphocytes % (Manual) 5L, Monocytes % (Manual) 9, Eosinophils % ( Manual) 0, Basophils % (Manual) 0, Band Neutrophils 5, Platelet Estimate Adequate, Platelet Morphology Normal, Hypochromasia 2+, Anisocytosis 2+, Sodium Level 160H, Potassium Level 3.6, Chloride Level 119H, Carbon Dioxide Level 33H, Anion Gap 8, Blood Urea Nitrogen 40H, Creatinine 1.6H, Estimat Glomerular Filtration Rate 45.1, Glucose Level 353H, Calcium Level 8.5, Total Bilirubin 3.1H, Direct Bilirubin 1.6H, Aspartate Amino Transf (AST/SGOT) 41H, Alanine Aminotransferase (ALT/SGPT) 100H, Alkaline Phosphatase 185H, Pro-B-Type Natriuretic Peptide 9247H, Total Protein 6.6, Albumin 1.8L, Globulin 4.8, Albumin/Globulin Ratio 0.4L Height (Feet): 6 Height (Inches): 0.00 Weight (Pounds): 270 General Appearance: lethargic EENT: normal ENT inspection Neck: normal alignment Cardiovascular: normal peripheral pulses, normal rate, regular rhythm Respiratory/Chest: chest wall non-tender, decreased breath sounds Abdomen: normal bowel sounds, non tender, soft Extremities: normal inspection Edema: no edema noted Arm (L), no edema noted Arm (R), no edema noted Leg (L), no edema noted Leg (R), no edema noted Pedal (L), no edema noted Pedal (R), no edema noted Generalized Neurologic: motor weakness Skin: normal pigmentation, warm/dry Mick Garcia DO Mar 09, 2018 12:13
--- NOTE | 2018-03-09 12:16 | General Surgery Progress Note ---
General Surgery-Progress Note Subjective Additional Comments in ICU , intubated , sedated Objective Last 24 Hour Vital Signs Date Time Temp Pulse Resp B/P (MAP) Pulse Ox O2 Delivery O2 Flow Rate FiO2 03/09/18 11:30 85 19 117/81 (93) 97 18 11:00 125/73 03/09/18 11:00 97 22 125/73 (90) 98 03/09/18 10:45 95 19 60 03/09/18 10:30 85 20 110/72 (85) 97 03/09/18 10:17 89 03/09/18 10:08 108/71 03/09/18 10:00 86 20 102/66 (78) 96 03/09/18 10:00 102/66 03/09/18 09:30 88 20 96/62 (73) 96 03/09/18 09:00 90 97/71 03/09/18 09:00 97/67 03/09/18 09:00 90 19 97/71 (80) 97 03/09/18 08:39 94 33 70 03/09/18 08:30 88 21 105/66 (79) 97 03/09/18 08:04 80 03/09/18 08:00 99.1 86 19 98/60 (73) 97 03/09/18 08:00 98/60 03/09/18 08:00 Mechanical Ventilator 03/09/18 08:00 90 03/09/18 07:30 88 22 96/59 (71) 97 03/09/18 07:08 81 22 80 03/09/18 07:00 87 20 99/59 (72) 97 03/09/18 07:00 99/59 03/09/18 06:30 100.7 97 15 89/49 (62) 96 03/09/18 06:00 96 16 110/71 (84) 97 03/09/18 06:00 89/64 03/09/18 05:30 91 22 102/63 (76) 97 03/09/18 05:20 91 20 80 03/09/18 05:00 89 17 95/67 (76) 96 03/09/18 05:00 116/69 03/09/18 04:30 89 20 100/67 (78) 96 03/09/18 04:00 Mechanical Ventilator 03/09/18 04:00 98.9 90 21 96/59 (71) 95 03/09/18 04:00 99/50 03/09/18 04:00 80 03/09/18 03:30 92 16 120/74 (89) 99 03/09/18 03:30 96 19 80 03/09/18 03:00 91 16 104/69 (81) 99 03/09/18 03:00 120/50 03/09/18 02:30 90 16 104/67 (79) 99 03/09/18 02:00 88 16 116/73 (87) 99 03/09/18 02:00 96/45 03/09/18 01:30 94 15 113/76 (88) 99 03/09/18 01:00 98.5 83 14 112/65 (81) 100 03/09/18 01:00 120/77 03/09/18 01:00 113/76 03/09/18 01:00 89 16 100 03/09/18 00:30 80 18 110/71 (84) 98 03/09/18 00:00 95 03/09/18 00:00 Mechanical Ventilator 03/09/18 00:00 89 18 114/66 (82) 97 03/08/18 23:45 70/39 03/08/18 23:30 88 17 102/62 (75) 97 03/08/18 23:11 100 03/08/18 23:00 81 23 76/42 (53) 98 03/08/18 22:39 88 22 100 03/08/18 22:30 95.4 103 17 103/57 (72) 96 03/08/18 20:27 91 126/86 03/08/18 20:00 Venturi Mask 15.0 03/08/18 20:00 97.5 84 40 126/86 (99) 96 03/08/18 20:00 70 03/08/18 19:28 97 Venturi Mask 6.0 35 03/08/18 19:28 Venturi Mask 6.0 35 03/08/18 17:47 84 03/08/18 17:19 84 123/80 03/08/18 17:19 123/80 03/08/18 16:00 Venturi Mask 15.0 03/08/18 16:00 97.7 84 30 123/80 (94) 96 03/08/18 13:25 82 03/08/18 12:25 88 125/74 03/08/18 12:24 12574 I&O Intake and Output 03/08/18 03/09/18 18:59 06:59 Intake Total 2016.67 ml 1462.0 ml Output Total 1000 ml 390 ml Balance 1016.67 ml 1072.0 ml Free Water 500 ml IV Total 1036.67 ml 1462.0 ml Tube Feeding 480 ml Output Urine Total 1000 ml 390 ml Dressing: dry Wound: clean, dry, other Drains: other Cardiovascular: RSR Respiratory: other Abdomen: soft, distended, present bowel sounds Extremities: other Laboratory Tests Test 03/08/18 23:49 03/09/18 04:00 Arterial Blood pH 7.413 (7.350-7.450) Arterial Blood Partial Pressure CO2 54.5 mmHg (35.0-45.0) H Arterial Blood Partial Pressure O2 98.9 mmHg (75.0-100.0) Arterial Blood HCO3 34.0 mmol/L (22.0-26.0) H Arterial Blood Oxygen Saturation 96.7 % (95-100) Arterial Blood Base Excess 7.4 (-2-2) H Janes Test Positive White Blood Count 15.5 K/UL (4.8-10.8) H Red Blood Count 6.13 M/UL (4.70-6.10) H Hemoglobin 15.9 G/DL (14.2-18.0) Hematocrit 51.3 % (42.0-52.0) Mean Corpuscular Volume 84 FL (80-99) Mean Corpuscular Hemoglobin 25.9 PG (27.0-31.0) L Mean Corpuscular Hemoglobin Concent 30.9 G/DL (32.0-36.0) L Red Cell Distribution Width 18.0 % (11.6-14.8) H Platelet Count 255 K/UL (150-450) Mean Platelet Volume 7.9 FL (6.5-10.1) Neutrophils (%) (Auto) % (45.0-75.0) Lymphocytes (%) (Auto) % (20.0-45.0) Monocytes (%) (Auto) % (1.0-10.0) Eosinophils (%) (Auto) % (0.0-3.0) Basophils (%) (Auto) % (0.0-2.0) Differential Total Cells Counted 100 Neutrophils % (Manual) 81 % (45-75) H Lymphocytes % (Manual) 5 % (20-45) L Monocytes % (Manual) 9 % (1-10) Eosinophils % (Manual) 0 % (0-3) Basophils % (Manual) 0 % (0-2) Band Neutrophils 5 % (0-8) Platelet Estimate Adequate Platelet Morphology Normal Hypochromasia 2+ Anisocytosis 2+ Sodium Level 160 MMOL/L (136-145) H Potassium Level 3.6 MMOL/L (3.5-5.1) Chloride Level 119 MMOL/L (98-107) H Carbon Dioxide Level 33 MMOL/L (21-32) H Anion Gap 8 mmol/L (5-15) Blood Urea Nitrogen 40 mg/dL (7-18) H Creatinine 1.6 MG/DL (0.55-1.30) H Estimat Glomerular Filtration Rate 45.1 mL/min (>60) Glucose Level 353 MG/DL (74-106) H Calcium Level 8.5 MG/DL (8.5-10.1) Total Bilirubin 3.1 MG/DL (0.2-1.0) H Direct Bilirubin 1.6 MG/DL (0.0-0.3) H Aspartate Amino Transf (AST/SGOT) 41 U/L (15-37) H Alanine Aminotransferase (ALT/SGPT) 100 U/L (12-78) H Alkaline Phosphatase 185 U/L (46-116) H Pro-B-Type Natriuretic Peptide 9247 pg/mL (0-125) H Total Protein 6.6 G/DL (6.4-8.2) Albumin 1.8 G/DL (3.4-5.0) L Globulin 4.8 g/dL Albumin/Globulin Ratio 0.4 (1.0-2.7) L Plan Problems: (1) Abnormal LFTs Assessment & Plan: will obtain hepatitis panel US abdomen - Cholelithiasis; Borderline gallbladder wall thickening, could indicate early acute cholecystitis changes. Consider hepatobiliary nuclear scan if there is high clinical suspicion Negative for dilated ducts will monitor clinically for now HIDA noted hep panel negative hiv neg LFTs noted / improving no surgical intervention necessary at this time. -unlikely cholecystitis. likely contracted GB trend labs (2) Cellulitis Assessment & Plan: chronic bilateral lower extremity wounds / ulcers acute on chronic cellulitis no abscess noted serous drainage multiple wounds that seem traumatic like cuts some small ulcers see wound photos for details -IV Abx as per ID -Keep legs elevated -apply skin protectant, hydrogel, non adherent dressings, and wrap ICU care and management Garth Cornelius Mar 09, 2018 12:16
--- NOTE | 2018-03-09 12:56 | Nephrology Progress Note ---
Assessment/Plan Assessment 1.hypernatremia 2.ZHAO 3.ckd 4.respiratory failure 5.CHF Plan free water via NG give d5w for 24 hours hold lasix monitoring renal function avoid NSAID replace electrolyte as need it Subjective Subjective on dopamine 5 tanesha coded last night and transferred to ICU unresponsive Objective Objective Last 24 Hour Vital Signs Date Time Temp Pulse Resp B/P (MAP) Pulse Ox O2 Delivery O2 Flow Rate FiO2 03/09/18 12:51 78 23 50 03/09/18 12:30 77 28 113/66 (82) 96 03/09/18 12:22 86 123/75 03/09/18 12:00 95 03/09/18 12:00 Mechanical Ventilator 03/09/18 12:00 99.1 87 19 108/68 (81) 97 03/09/18 11:30 85 19 117/81 (93) 97 03/09/18 11:00 125/73 03/09/18 11:00 97 22 125/73 (90) 98 03/09/18 10:45 95 19 60 03/09/18 10:30 85 20 110/72 (85) 97 03/09/18 10:17 89 03/09/18 10:08 108/71 03/09/18 10:00 86 20 102/66 (78) 96 03/09/18 10:00 102/66 03/09/18 09:30 88 20 96/62 (73) 96 03/09/18 09:00 90 97/71 03/09/18 09:00 97/67 03/09/18 09:00 90 19 97/71 (80) 97 03/09/18 08:39 94 33 70 03/09/18 08:30 88 21 105/66 (79) 97 03/09/18 08:04 80 03/09/18 08:00 99.1 86 19 98/60 (73) 97 03/09/18 08:00 98/60 03/09/18 08:00 Mechanical Ventilator 03/09/18 08:00 90 03/09/18 07:30 88 22 96/59 (71) 97 03/09/18 07:08 81 22 80 03/09/18 07:00 87 20 99/59 (72) 97 03/09/18 07:00 99/59 03/09/18 06:30 100.7 97 15 89/49 (62) 96 03/09/18 06:00 96 16 110/71 (84) 97 03/09/18 06:00 89/64 03/09/18 05:30 91 22 102/63 (76) 97 03/09/18 05:20 91 20 80 03/09/18 05:00 89 17 95/67 (76) 96 03/09/18 05:00 116/69 03/09/18 04:30 89 20 100/67 (78) 96 03/09/18 04:00 Mechanical Ventilator 03/09/18 04:00 98.9 90 21 96/59 (71) 95 03/09/18 04:00 99/50 03/09/18 04:00 80 03/09/18 03:30 92 16 120/74 (89) 99 03/09/18 03:30 96 19 80 03/09/18 03:00 91 16 104/69 (81) 99 03/09/18 03:00 120/50 03/09/18 02:30 90 16 104/67 (79) 99 03/09/18 02:00 88 16 116/73 (87) 99 03/09/18 02:00 96/45 03/09/18 01:30 94 15 113/76 (88) 99 03/09/18 01:00 98.5 83 14 112/65 (81) 100 03/09/18 01:00 120/77 03/09/18 01:00 113/76 03/09/18 01:00 89 16 100 03/09/18 00:30 80 18 110/71 (84) 98 03/09/18 00:00 95 03/09/18 00:00 Mechanical Ventilator 03/09/18 00:00 89 18 114/66 (82) 97 03/08/18 23:45 70/39 03/08/18 23:30 88 17 102/62 (75) 97 03/08/18 23:11 100 03/08/18 23:00 81 23 76/42 (53) 98 03/08/18 22:39 88 22 100 03/08/18 22:30 95.4 103 17 103/57 (72) 96 03/08/18 20:27 91 126/86 03/08/18 20:00 Venturi Mask 15.0 03/08/18 20:00 97.5 84 40 126/86 (99) 96 03/08/18 20:00 70 03/08/18 19:28 97 Venturi Mask 6.0 35 03/08/18 19:28 Venturi Mask 6.0 35 03/08/18 17:47 84 03/08/18 17:19 84 123/80 03/08/18 17:19 123/80 03/08/18 16:00 Venturi Mask 15.0 03/08/18 16:00 97.7 84 30 123/80 (94) 96 03/08/18 13:25 82 Intake and Output 03/08/18 03/09/18 18:59 06:59 Intake Total 2016.67 ml 1462.0 ml Output Total 1000 ml 390 ml Balance 1016.67 ml 1072.0 ml Free Water 500 ml IV Total 1036.67 ml 1462.0 ml Tube Feeding 480 ml Output Urine Total 1000 ml 390 ml Laboratory Tests 03/08/18 23:49: Arterial Blood pH 7.413, Arterial Blood Partial Pressure CO2 54.5H, Arterial Blood Partial Pressure O2 98.9, Arterial Blood HCO3 34.0H, Arterial Blood Oxygen Saturation 96.7, Arterial Blood Base Excess 7.4H, Janes Test Positive 03/09/18 04:00: White Blood Count 15.5H, Red Blood Count 6.13H, Hemoglobin 15.9, Hematocrit 51.3 , Mean Corpuscular Volume 84, Mean Corpuscular Hemoglobin 25.9L, Mean Corpuscular Hemoglobin Concent 30.9L, Red Cell Distribution Width 18.0H, Platelet Count 255, Mean Platelet Volume 7.9, Neutrophils (%) (Auto) , Lymphocytes (%) (Auto) , Monocytes (%) (Auto) , Eosinophils (%) (Auto) , Basophils (%) (Auto) , Differential Total Cells Counted 100, Neutrophils % ( Manual) 81H, Lymphocytes % (Manual) 5L, Monocytes % (Manual) 9, Eosinophils % ( Manual) 0, Basophils % (Manual) 0, Band Neutrophils 5, Platelet Estimate Adequate, Platelet Morphology Normal, Hypochromasia 2+, Anisocytosis 2+, Sodium Level 160H, Potassium Level 3.6, Chloride Level 119H, Carbon Dioxide Level 33H, Anion Gap 8, Blood Urea Nitrogen 40H, Creatinine 1.6H, Estimat Glomerular Filtration Rate 45.1, Glucose Level 353H, Calcium Level 8.5, Total Bilirubin 3.1H, Direct Bilirubin 1.6H, Aspartate Amino Transf (AST/SGOT) 41H, Alanine Aminotransferase (ALT/SGPT) 100H, Alkaline Phosphatase 185H, Pro-B-Type Natriuretic Peptide 9247H, Total Protein 6.6, Albumin 1.8L, Globulin 4.8, Albumin/Globulin Ratio 0.4L Height (Feet): 6 Height (Inches): 0.00 Weight (Pounds): 270 Objective HEENT: Atraumatic and normocephalic. Anicteric. Pupils are equal, round, and reactive to light and accommodation. Extraocular muscles intact. Altered. NECK: JVP elevated about 5cm. No carotid bruits. Carotid upstrokes 2+ bilaterally. CARDIOVASCULAR: Normal S1, S2. Irregularly irregular rhythm. 2/6 Holosystolic murmur, gallop, or rub. LUNGS: Diminished BS both lungs. ABDOMEN: Soft, nontender, and nondistended. No hepatosplenomegaly. Positive bowel sounds. EXTREMITIES: There is 1+ bilateral lower extremity edema with ulcerations. Maryana Collier MD Mar 09, 2018 12:56
--- NOTE | 2018-03-09 14:49 | Diagnostic Imaging Report ---
Indication: Post nasogastric tube readjustment, previously malpositioned Technique: Supine view of the upper abdomen Comparison: One hour earlier Findings: Interval advancement of previously demonstrated nasogastric tube, position improved and now satisfactory, tip at the level of gastric fundus/body junction. Mildly prominent left upper quadrant small bowel loops are noted. Overlying defibrillator paddles are noted. Impression: Improved and now satisfactory position of nasogastric tube
--- NOTE | 2018-03-09 15:46 | Diagnostic Imaging Report ---
Indication: Dyspnea Technique: One view of the chest Comparison: 03/08/2018 Findings: Stable satisfactory position of endotracheal tube. Some hazy opacity at the right lung base may reflect a small amount of pleural fluid. Previously demonstrated right perihilar consolidation has improved. There is central bronchial wall thickening again demonstrated. The heart is upper limits normal in size. There is a nasogastric tube in place, tip projecting just beyond the gastroesophageal junction. Impression: Improved right perihilar infiltrate, over one day. Right basilar opacity may reflect a small amount of pleural fluid Somewhat high position of nasogastric tube. Note that a subsequent abdominal radiograph indicates that this has been corrected Possible small right pleural effusion
[2018-03-09] MEDS ORDERED: Miralax 17gm pkt ORAL PRN (19:45)
[2018-03-09] MEDS: Dyna-Hex 2% Top Sol 2oz TOPIC SCH (20:02)
--- NOTE | 2018-03-09 21:28 | Neurology Progress Note ---
Interim History Interim History Interim History Mr. Cornejo had a cardiac arrest yesterday. He had to get ACLS for ~10 minutes following which a pulse was obtained. He also had to be intubated, artificially ventilated and transferred to the ICU. He is in a deep coma and cannot be aroused. Review of Systems Neuro Review of Systems Unable to obtain. Objective Physical Exam Last Vital Signs Date Time Temp Pulse Resp B/P (MAP) Pulse Ox O2 Delivery O2 Flow Rate FiO2 03/09/18 21:00 85 22 50 03/09/18 19:00 125/75 03/09/18 19:00 96 03/09/18 16:00 98.9 03/09/18 16:00 Mechanical Ventilator 03/08/18 20:00 15.0 Laboratory Tests Test 03/08/18 23:49 03/09/18 04:00 Arterial Blood pH 7.413 (7.350-7.450) Arterial Blood Partial Pressure CO2 54.5 mmHg (35.0-45.0) H Arterial Blood Partial Pressure O2 98.9 mmHg (75.0-100.0) Arterial Blood HCO3 34.0 mmol/L (22.0-26.0) H Arterial Blood Oxygen Saturation 96.7 % (95-100) Arterial Blood Base Excess 7.4 (-2-2) H Janes Test Positive White Blood Count 15.5 K/UL (4.8-10.8) H Red Blood Count 6.13 M/UL (4.70-6.10) H Hemoglobin 15.9 G/DL (14.2-18.0) Hematocrit 51.3 % (42.0-52.0) Mean Corpuscular Volume 84 FL (80-99) Mean Corpuscular Hemoglobin 25.9 PG (27.0-31.0) L Mean Corpuscular Hemoglobin Concent 30.9 G/DL (32.0-36.0) L Red Cell Distribution Width 18.0 % (11.6-14.8) H Platelet Count 255 K/UL (150-450) Mean Platelet Volume 7.9 FL (6.5-10.1) Neutrophils (%) (Auto) % (45.0-75.0) Lymphocytes (%) (Auto) % (20.0-45.0) Monocytes (%) (Auto) % (1.0-10.0) Eosinophils (%) (Auto) % (0.0-3.0) Basophils (%) (Auto) % (0.0-2.0) Differential Total Cells Counted 100 Neutrophils % (Manual) 81 % (45-75) H Lymphocytes % (Manual) 5 % (20-45) L Monocytes % (Manual) 9 % (1-10) Eosinophils % (Manual) 0 % (0-3) Basophils % (Manual) 0 % (0-2) Band Neutrophils 5 % (0-8) Platelet Estimate Adequate Platelet Morphology Normal Hypochromasia 2+ Anisocytosis 2+ Sodium Level 160 MMOL/L (136-145) H Potassium Level 3.6 MMOL/L (3.5-5.1) Chloride Level 119 MMOL/L (98-107) H Carbon Dioxide Level 33 MMOL/L (21-32) H Anion Gap 8 mmol/L (5-15) Blood Urea Nitrogen 40 mg/dL (7-18) H Creatinine 1.6 MG/DL (0.55-1.30) H Estimat Glomerular Filtration Rate 45.1 mL/min (>60) Glucose Level 353 MG/DL (74-106) H Calcium Level 8.5 MG/DL (8.5-10.1) Total Bilirubin 3.1 MG/DL (0.2-1.0) H Direct Bilirubin 1.6 MG/DL (0.0-0.3) H Aspartate Amino Transf (AST/SGOT) 41 U/L (15-37) H Alanine Aminotransferase (ALT/SGPT) 100 U/L (12-78) H Alkaline Phosphatase 185 U/L (46-116) H Pro-B-Type Natriuretic Peptide 9247 pg/mL (0-125) H Total Protein 6.6 G/DL (6.4-8.2) Albumin 1.8 G/DL (3.4-5.0) L Globulin 4.8 g/dL Albumin/Globulin Ratio 0.4 (1.0-2.7) L Neurologic Exam Objective PHYSICAL EXAMINATION: GENERAL: He is a well developed, well nourished, gentleman, lying in an ICU bed, connected to a ventilator via an priti-tracheal tube. HEAD: Normocephalic and atraumatic. EENT: Examination benign. NECK: No neck rigidity was observed. NEUROLOGIC EXAMINATION: MENTAL STATUS EXAMINATION: He could not be aroused even on deep painful stimuli. Further mental status testing was impossible. SPEECH: Could not be tested. LANGUAGE: Could not be tested. CRANIAL NERVE EXAMINATION: II: He did not blink to threat. III, IV & : The external ocular movements were present on oculocephalic maneuvers - but restricted. The pupils were 3 mm in diameter and did not react to light. V & VII: The corneal reflexes were subdued but equal. VIII: He did not respond to sounds and had no nystagmus. IX & X: The gag reflex was absent. XI: The sternocleidomastoids and trapezii did not function. XII: The tongue could not be tested adequately. MOTOR SYSTEM: The tone was normal in all 4 extremities. Examination of muscle mass revealed no focal wasting. 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 Examination of power was impossible to perform because even on applying deep painful stimuli no movements were seen. SENSORY EXAMINATION: He did not respond even to deep painful stimuli. REFLEXES: 0 at the biceps, triceps, brachioradialis, knees, and ankles. The right plantar response could not be tested as he had no toes, and the left plantar response was mute. COORDINATION, STANCE & GAIT: Could not be tested. Impression/Recommendations Diagnostic Impression 1. Mr. Dustin Cornejo is a 57-year-old, gentleman, of unknown handedness, who was hospitalized for right lower extremity cellulitis and then in the hospital deteriorated to a point where became quite altered with regards to his mental state on 03/05/2018 and was transferred to the ICU. He was noted to have atrial fibrillation with a rapid ventricular rate and shortness of breath related to hypoxic respiratory failure and then became agitated as a result of which he was given multiple doses of Ativan, Haldol, and morphine. 2. He had a cardiac arrest on 03/08/18. He had to get ACLS for ~10 minutes following which a pulse was obtained. He also had to be intubated, artificially ventilated and transferred to the ICU. He is in a deep coma and cannot be aroused. 3. On neurological examination, at this time, he is in a deep coma. He has no signs of cortical function. He does have brainstem function in the form of restricted eye movements on oculocephalic maneuvers and corneal reflexes that are diminished but equal. He has globally absent deep tendon reflexes, and plantar response on the left side is mute. 4. His latest laboratory data on my initial evaluation revealed his WBC count was elevated to 13,400. He had his last ESR on 03/02/2018 and it was 7. His blood gases revealed that he had a pH of 7.48, pCO2 of 35, and pO2 of 51. His latest chemistry panel revealed that his sodium was elevated to 155. His chloride was elevated to 118. His BUN was elevated to 41. His creatinine was elevated to 1.3. His glucose was elevated to 208. His total bilirubin was elevated at 2.8. His AST, ALT, and alkaline phosphatase were all elevated. His albumin was low at 2.2. His urine toxicology screen on admission revealed that tetrahydrocannabinols were present. His serologies were negative for HIV. 5. Further laboratory tests revealed a normal B12, Folate, TSH but the Hb A1C was elevated at 9.2%. 6. The CT of the brain done on 03/07/18 revealed atrophy and deep white matter disease but no acute pathology. 7. The EEG revealed a moderate toxic/metabolic encephalopathy. 8. The patient's history, neurological examination, laboratory data, EEG and imaging are most compatible with a severe toxic metabolic encephalopathy, which is multifactorial. The recent cardiac arrest has led to an anoxic/ischemic encephalopathy. Acute intracranial pathology has been excluded. Recommendations 1. Continue present management. 2. Keep the patient off all mind-altering drugs. 3. Correct toxic/metabolic imbalances the best possible. 4. Agree with LP to exclude meningoencephalitic process. 5. Observe closely in ICU setting. Dawit Marshall M.D., M.S.P.H. Dawit Marshall MD Mar 09, 2018 21:28
--- NOTE | 2018-03-09 23:54 | Cardiology Progress Note ---
Assessment/Plan Assessment/Plan 1. Atrial fibrillation with controlled ventricular response, continue carvedilol , digoxin and cardizem, on Eliquis. Continue amiodarone. 2. 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 3. Severe mitral regurgitation, afterload reduction with hydralazine, preload reduction with furosemide. Subjective Subjective Atrial fibrillation with controlled ventricular response at rate of 77. Objective Last 24 Hour Vital Signs Date Time Temp Pulse Resp B/P (MAP) Pulse Ox O2 Delivery O2 Flow Rate FiO2 03/09/18 23:03 77 20 50 03/09/18 22:00 79 22 102/75 (84) 96 03/09/18 21:30 84 20 113/75 (88) 96 03/09/18 21:30 84 22 128/80 (96) 95 03/09/18 21:00 92/63 03/09/18 21:00 85 22 50 03/09/18 21:00 84 21 103/69 (80) 95 03/09/18 20:00 85 03/09/18 20:00 99.5 85 21 128/80 (96) 97 03/09/18 20:00 Mechanical Ventilator 03/09/18 19:30 83 21 126/79 (95) 97 03/09/18 19:00 125/75 03/09/18 19:00 81 22 125/78 (94) 96 03/09/18 18:59 88 21 50 03/09/18 18:30 84 25 107/72 (84) 94 03/09/18 18:00 83 25 101/70 (80) 95 03/09/18 18:00 101/70 03/09/18 18:00 107/70 03/09/18 18:00 83 107/70 03/09/18 17:30 81 24 112/62 (79) 95 03/09/18 17:00 125/72 03/09/18 17:00 79 22 125/72 (89) 95 03/09/18 16:34 75 19 50 03/09/18 16:30 76 20 98/68 (78) 96 03/09/18 16:00 73 03/09/18 16:00 125/72 03/09/18 16:00 40 03/09/18 16:00 98.9 72 27 100/66 (77) 93 03/09/18 16:00 Mechanical Ventilator 03/09/18 15:30 73 33 105/60 (75) 92 03/09/18 15:00 104/74 03/09/18 15:00 75 21 104/74 (84) 95 03/09/18 14:47 77 33 40 03/09/18 14:30 72 26 102/65 (77) 94 03/09/18 14:00 71 21 109/69 (82) 95 03/09/18 14:00 109/69 03/09/18 13:30 72 29 100/70 (80) 95 03/09/18 13:00 79 21 97/61 (73) 93 03/09/18 13:00 97/61 03/09/18 12:51 78 23 50 03/09/18 12:30 77 28 113/66 (82) 96 03/09/18 12:22 86 123/75 03/09/18 12:00 95 03/09/18 12:00 50 03/09/18 12:00 Mechanical Ventilator 03/09/18 12:00 108/68 03/09/18 12:00 108/68 03/09/18 12:00 99.1 87 19 108/68 (81) 97 03/09/18 11:30 85 19 117/81 (93) 97 03/09/18 11:00 125/73 03/09/18 11:00 97 22 125/73 (90) 98 03/09/18 10:45 95 19 60 03/09/18 10:30 85 20 110/72 (85) 97 03/09/18 10:17 89 03/09/18 10:08 108/71 03/09/18 10:00 86 20 102/66 (78) 96 03/09/18 10:00 102/66 03/09/18 09:30 88 20 96/62 (73) 96 03/09/18 09:00 90 97/71 03/09/18 09:00 97/67 03/09/18 09:00 90 19 97/71 (80) 97 03/09/18 08:39 94 33 70 03/09/18 08:30 88 21 105/66 (79) 97 03/09/18 08:04 80 03/09/18 08:00 99.1 86 19 98/60 (73) 97 03/09/18 08:00 98/60 03/09/18 08:00 Mechanical Ventilator 03/09/18 08:00 90 03/09/18 07:30 88 22 96/59 (71) 97 03/09/18 07:08 81 22 80 03/09/18 07:00 87 20 99/59 (72) 97 03/09/18 07:00 99/59 03/09/18 06:30 100.7 97 15 89/49 (62) 96 03/09/18 06:00 96 16 110/71 (84) 97 03/09/18 06:00 89/64 03/09/18 05:30 91 22 102/63 (76) 97 03/09/18 05:20 91 20 80 03/09/18 05:00 89 17 95/67 (76) 96 03/09/18 05:00 116/69 03/09/18 04:30 89 20 100/67 (78) 96 03/09/18 04:00 Mechanical Ventilator 03/09/18 04:00 98.9 90 21 96/59 (71) 95 03/09/18 04:00 99/50 03/09/18 04:00 80 03/09/18 03:30 92 16 120/74 (89) 99 03/09/18 03:30 96 19 80 03/09/18 03:00 91 16 104/69 (81) 99 03/09/18 03:00 120/50 03/09/18 02:30 90 16 104/67 (79) 99 03/09/18 02:00 88 16 116/73 (87) 99 03/09/18 02:00 96/45 03/09/18 01:30 94 15 113/76 (88) 99 03/09/18 01:00 98.5 83 14 112/65 (81) 100 03/09/18 01:00 120/77 03/09/18 01:00 113/76 03/09/18 01:00 89 16 100 03/09/18 00:30 80 18 110/71 (84) 98 03/09/18 00:00 95 03/09/18 00:00 Mechanical Ventilator 03/09/18 00:00 89 18 114/66 (82) 97 Intake and Output 03/08/18 03/09/18 19:00 07:00 Intake Total 2016.67 ml 1612.5 ml Output Total 1000 ml 450 ml Balance 1016.67 ml 1162.5 ml Free Water 500 ml IV Total 1036.67 ml 1612.5 ml Tube Feeding 480 ml Output Urine Total 1000 ml 450 ml 2D Echo: LVEF 25%, Bi-atrial enlargement, Severe MR, RVSP 24 mmHg, RAP 15 mmHg Laboratory Tests Test 03/09/18 04:00 White Blood Count 15.5 K/UL (4.8-10.8) H Red Blood Count 6.13 M/UL (4.70-6.10) H Hemoglobin 15.9 G/DL (14.2-18.0) Hematocrit 51.3 % (42.0-52.0) Mean Corpuscular Volume 84 FL (80-99) Mean Corpuscular Hemoglobin 25.9 PG (27.0-31.0) L Mean Corpuscular Hemoglobin Concent 30.9 G/DL (32.0-36.0) L Red Cell Distribution Width 18.0 % (11.6-14.8) H Platelet Count 255 K/UL (150-450) Mean Platelet Volume 7.9 FL (6.5-10.1) Neutrophils (%) (Auto) % (45.0-75.0) Lymphocytes (%) (Auto) % (20.0-45.0) Monocytes (%) (Auto) % (1.0-10.0) Eosinophils (%) (Auto) % (0.0-3.0) Basophils (%) (Auto) % (0.0-2.0) Differential Total Cells Counted 100 Neutrophils % (Manual) 81 % (45-75) H Lymphocytes % (Manual) 5 % (20-45) L Monocytes % (Manual) 9 % (1-10) Eosinophils % (Manual) 0 % (0-3) Basophils % (Manual) 0 % (0-2) Band Neutrophils 5 % (0-8) Platelet Estimate Adequate Platelet Morphology Normal Hypochromasia 2+ Anisocytosis 2+ Sodium Level 160 MMOL/L (136-145) H Potassium Level 3.6 MMOL/L (3.5-5.1) Chloride Level 119 MMOL/L (98-107) H Carbon Dioxide Level 33 MMOL/L (21-32) H Anion Gap 8 mmol/L (5-15) Blood Urea Nitrogen 40 mg/dL (7-18) H Creatinine 1.6 MG/DL (0.55-1.30) H Estimat Glomerular Filtration Rate 45.1 mL/min (>60) Glucose Level 353 MG/DL (74-106) H Calcium Level 8.5 MG/DL (8.5-10.1) Total Bilirubin 3.1 MG/DL (0.2-1.0) H Direct Bilirubin 1.6 MG/DL (0.0-0.3) H Aspartate Amino Transf (AST/SGOT) 41 U/L (15-37) H Alanine Aminotransferase (ALT/SGPT) 100 U/L (12-78) H Alkaline Phosphatase 185 U/L (46-116) H Pro-B-Type Natriuretic Peptide 9247 pg/mL (0-125) H Total Protein 6.6 G/DL (6.4-8.2) Albumin 1.8 G/DL (3.4-5.0) L Globulin 4.8 g/dL Albumin/Globulin Ratio 0.4 (1.0-2.7) L Objective HEENT: Atraumatic and normocephalic. Anicteric. Pupils are equal, round, and reactive to light and accommodation. Extraocular muscles intact. Altered. NECK: JVP elevated about 5cm. No carotid bruits. Carotid upstrokes 2+ bilaterally. CARDIOVASCULAR: Normal S1, S2. Irregularly irregular rhythm. 2/6 Holosystolic murmur, gallop, or rub. LUNGS: Diminished BS both lungs. ABDOMEN: Soft, nontender, and nondistended. No hepatosplenomegaly. Positive bowel sounds. EXTREMITIES: There is 1+ bilateral lower extremity edema with ulcerations. Sudarshan Stuart MD Mar 09, 2018 23:54
[2018-03-10] VITALS (45 sets, daily range): BP systolic 90–143; BP diastolic 53–89
[2018-03-10 05:43] LABS: BASOPHILS % (AUTO) 0.4 % (0.0-2.0); EOSINOPHILS % (AUTO) 1.4 % (0.0-3.0); HEMATOCRIT 46.5 % (42.0-52.0); HEMOGLOBIN 14.6 G/DL (14.2-18.0); LYMPHOCYTES % (AUTO) 9.2 % (20.0-45.0); MEAN CORPUSCULAR VOLUME 82 FL (80-99); MONOCYTES % (AUTO) 5.5 % (1.0-10.0); NEUTROPHILS % (AUTO) 83.4 % (45.0-75.0); PLATELET COUNT 220 K/UL (150-450); RED BLOOD COUNT 5.64 M/UL (4.70-6.10); WHITE BLOOD COUNT 13.5 K/UL (4.8-10.8)
[2018-03-10] MEDS: NovoLOG Insulin Flexpen SUBQ SCH ×4 (05:54→21:13)
[2018-03-10] MEDS: HydrALAZINE 25mg tab ORAL SCH ×5 (05:55→23:49)
[2018-03-10] MEDS: dilTIAZem HCl 90mg tab ORAL SCH ×5 (05:55→23:49)
[2018-03-10 06:34] LABS: ALANINE AMINOTRANSFERASE 57 U/L (12-78); ALBUMIN 1.6 G/DL (3.4-5.0); ALBUMIN/GLOBULIN RATIO 0.4 (1.0-2.7); ALKALINE PHOSPHATASE 164 U/L (46-116); ANION GAP 6 mmol/L (5-15); ASPARTATE AMINO TRANSFERASE 24 U/L (15-37); BLOOD UREA NITROGEN 37 mg/dL (7-18); CALCIUM 7.8 MG/DL (8.5-10.1); CARBON DIOXIDE 32 MMOL/L (21-32); CHLORIDE 114 MMOL/L (98-107); PHOSPHORUS 2.4 MG/DL (2.5-4.9); POTASSIUM 3.1 MMOL/L (3.5-5.1); SODIUM 152 MMOL/L (136-145)
[2018-03-10 06:50] LABS: BILIRUBIN,DIRECT 1.8 MG/DL (0.0-0.3)
[2018-03-10 06:56] LABS: CREATININE 1.5 MG/DL (0.55-1.30)
[2018-03-10] MEDS: DOPamine 400mg/250ml 250 ML IV SCH (07:00)
--- NOTE | 2018-03-10 07:29 | Pulmonolgy Critical Care Note ---
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 Critical Care - Objective Last 24 Hour Vital Signs Date Time Temp Pulse Resp B/P (MAP) Pulse Ox O2 Delivery O2 Flow Rate FiO2 03/10/18 07:02 85 23 60 03/10/18 06:30 99.5 82 21 103/63 (76) 95 03/10/18 06:00 109/65 03/10/18 06:00 79 22 109/65 (80) 94 03/10/18 05:30 87 22 99/57 (71) 94 03/10/18 05:00 60 03/10/18 05:00 91 22 101/66 (78) 92 03/10/18 05:00 110/66 03/10/18 04:57 89 22 60 03/10/18 04:30 92 21 105/62 (76) 93 03/10/18 04:00 50 03/10/18 04:00 90 03/10/18 04:00 100.7 91 22 104/68 (80) 94 03/10/18 04:00 98/60 03/10/18 04:00 Mechanical Ventilator 03/10/18 03:30 90 25 111/70 (84) 91 03/10/18 03:24 84 25 50 03/10/18 03:00 87 22 118/68 (85) 98 03/10/18 03:00 118/68 03/10/18 02:30 83 23 121/69 (86) 96 03/10/18 02:00 81 21 102/89 (93) 97 03/10/18 02:00 102/89 03/10/18 01:30 81 20 106/63 (77) 97 03/10/18 01:03 76 22 50 03/10/18 01:00 105/72 03/10/18 01:00 80 20 105/72 (83) 97 03/10/18 00:30 79 20 116/66 (83) 97 03/10/18 00:00 40 03/10/18 00:00 98.3 80 19 102/70 (81) 100 03/10/18 00:00 103/64 03/10/18 00:00 74 03/10/18 00:00 Mechanical Ventilator 03/09/18 23:30 80 21 91/66 (74) 96 03/09/18 23:03 77 20 50 03/09/18 23:00 81 22 92/63 (73) 95 03/09/18 23:00 92/63 03/09/18 22:30 81 22 101/70 (80) 95 03/09/18 22:00 106/63 03/09/18 22:00 79 22 102/75 (84) 96 03/09/18 21:30 84 20 113/75 (88) 96 03/09/18 21:30 84 22 128/80 (96) 95 03/09/18 21:00 92/63 03/09/18 21:00 85 22 50 03/09/18 21:00 84 21 103/69 (80) 95 03/09/18 20:00 85 03/09/18 20:00 40 03/09/18 20:00 99.5 85 21 128/80 (96) 97 03/09/18 20:00 Mechanical Ventilator 03/09/18 19:30 83 21 126/79 (95) 97 03/09/18 19:00 125/75 03/09/18 19:00 81 22 125/78 (94) 96 03/09/18 18:59 88 21 50 03/09/18 18:30 84 25 107/72 (84) 94 03/09/18 18:00 83 25 101/70 (80) 95 18 18:00 101/70 03/09/18 18:00 107/70 03/09/18 18:00 83 107/70 03/09/18 17:30 81 24 112/62 (79) 95 03/09/18 17:00 125/72 03/09/18 17:00 79 22 125/72 (89) 95 03/09/18 16:34 75 19 50 03/09/18 16:30 76 20 98/68 (78) 96 03/09/18 16:00 73 03/09/18 16:00 125/72 03/09/18 16:00 40 03/09/18 16:00 98.9 72 27 100/66 (77) 93 03/09/18 16:00 Mechanical Ventilator 03/09/18 15:30 73 33 105/60 (75) 92 03/09/18 15:00 104/74 03/09/18 15:00 75 21 104/74 (84) 95 03/09/18 14:47 77 33 40 03/09/18 14:30 72 26 102/65 (77) 94 03/09/18 14:00 71 21 109/69 (82) 95 03/09/18 14:00 109/69 03/09/18 13:30 72 29 100/70 (80) 95 03/09/18 13:00 79 21 97/61 (73) 93 03/09/18 13:00 97/61 03/09/18 12:51 78 23 50 03/09/18 12:30 77 28 113/66 (82) 96 03/09/18 12:22 86 123/75 03/09/18 12:00 95 03/09/18 12:00 50 03/09/18 12:00 Mechanical Ventilator 03/09/18 12:00 108/68 03/09/18 12:00 108/68 03/09/18 12:00 99.1 87 19 108/68 (81) 97 03/09/18 11:30 85 19 117/81 (93) 97 03/09/18 11:00 125/73 03/09/18 11:00 97 22 125/73 (90) 98 03/09/18 10:45 95 19 60 03/09/18 10:30 85 20 110/72 (85) 97 03/09/18 10:17 89 03/09/18 10:08 108/71 03/09/18 10:00 86 20 102/66 (78) 96 03/09/18 10:00 102/66 03/09/18 09:30 88 20 96/62 (73) 96 03/09/18 09:00 90 97/71 03/09/18 09:00 97/67 03/09/18 09:00 90 19 97/71 (80) 97 03/09/18 08:39 94 33 70 03/09/18 08:30 88 21 105/66 (79) 97 03/09/18 08:04 80 03/09/18 08:00 99.1 86 19 98/60 (73) 97 03/09/18 08:00 98/60 03/09/18 08:00 Mechanical Ventilator 03/09/18 08:00 90 03/09/18 07:30 88 22 96/59 (71) 97 Status: sedated Condition: critical Neck: full ROM Lungs: chest wall tender Heart: HR/BP unstable Abdomen: soft, active bowel sounds Accucheck: 227 Critical Care - Subjective ROS Limited/Unobtainable: Yes Condition: critical EKG Rhythm: Sinus Rhythm FI02: 60 Vent Support Breath Rate: 16 Vent Support Mode: AC Vent Tidal Volume: 600 Sputum Amount: Small PEEP: 5.0 PIP: 20 Tube Feeding Amount: 25 I&O: Intake and Output 03/09/18 03/10/18 19:00 07:00 Intake Total 2453.5 ml 2624.34 ml Output Total 1655 ml 1225 ml Balance 798.5 ml 1399.34 ml Free Water 250 ml 900 ml IV Total 1808.5 ml 1469.34 ml Tube Feeding 105 ml 255 ml Other 290 ml Output Urine Total 1655 ml 1225 ml ET-Tube: 7.5 ET Position: 23 Labs: Laboratory Tests Test 03/10/18 05:00 White Blood Count 13.5 K/UL (4.8-10.8) H Red Blood Count 5.64 M/UL (4.70-6.10) Hemoglobin 14.6 G/DL (14.2-18.0) Hematocrit 46.5 % (42.0-52.0) Mean Corpuscular Volume 82 FL (80-99) Mean Corpuscular Hemoglobin 25.9 PG (27.0-31.0) L Mean Corpuscular Hemoglobin Concent 31.5 G/DL (32.0-36.0) L Red Cell Distribution Width 18.0 % (11.6-14.8) H Platelet Count 220 K/UL (150-450) Mean Platelet Volume 8.1 FL (6.5-10.1) Neutrophils (%) (Auto) 83.4 % (45.0-75.0) H Lymphocytes (%) (Auto) 9.2 % (20.0-45.0) L Monocytes (%) (Auto) 5.5 % (1.0-10.0) Eosinophils (%) (Auto) 1.4 % (0.0-3.0) Basophils (%) (Auto) 0.4 % (0.0-2.0) Sodium Level 152 MMOL/L (136-145) H Potassium Level 3.1 MMOL/L (3.5-5.1) L Chloride Level 114 MMOL/L (98-107) H Carbon Dioxide Level 32 MMOL/L (21-32) Anion Gap 6 mmol/L (5-15) Blood Urea Nitrogen 37 mg/dL (7-18) H Creatinine 1.5 MG/DL (0.55-1.30) H Estimat Glomerular Filtration Rate 48.6 mL/min (>60) Glucose Level 261 MG/DL (74-106) H Calcium Level 7.8 MG/DL (8.5-10.1) L Phosphorus Level 2.4 MG/DL (2.5-4.9) L Magnesium Level 2.1 MG/DL (1.8-2.4) Total Bilirubin 3.0 MG/DL (0.2-1.0) H Direct Bilirubin 1.8 MG/DL (0.0-0.3) H Aspartate Amino Transf (AST/SGOT) 24 U/L (15-37) Alanine Aminotransferase (ALT/SGPT) 57 U/L (12-78) Alkaline Phosphatase 164 U/L (46-116) H Total Protein 5.9 G/DL (6.4-8.2) L Albumin 1.6 G/DL (3.4-5.0) L Globulin 4.3 g/dL Albumin/Globulin Ratio 0.4 (1.0-2.7) L Sunita Sahni MD Mar 10, 2018 07:29
--- NOTE | 2018-03-10 07:45 | General Progress Note ---
Assessment/Plan Problem List: (1) A-fib ICD Codes: I48.91 - Unspecified atrial fibrillation SNOMED: 82587370 (2) Diabetes ICD Codes: E11.9 - Type 2 diabetes mellitus without complications SNOMED: 95632756 (3) Abnormal LFTs ICD Codes: R94.5 - Abnormal results of liver function studies SNOMED: 646025373 (4) Rapid atrial fibrillation ICD Codes: I48.91 - Unspecified atrial fibrillation SNOMED: 677851787 (5) Drug abuse ICD Codes: F19.10 - Other psychoactive substance abuse, uncomplicated SNOMED: 20293843 Assessment/Plan us reviewed >> Cholelithiasis. Borderline gallbladder wall thickening, could indicate early acute cholecystitis changes. neg hepatitis panel HIDA negative LFTs still elevated, trend ST evaluation noted cont NGTFs, will consider PEG if no patient does not improve electrolyte correction prn transfusions ppi fu labs Subjective ROS Limited/Unobtainable: No Allergies: Coded Allergies: No Known Allergies (Unverified , 02/16/18) Objective Last 24 Hour Vital Signs Date Time Temp Pulse Resp B/P (MAP) Pulse Ox O2 Delivery O2 Flow Rate FiO2 03/10/18 07:02 85 23 60 03/10/18 06:30 99.5 82 21 103/63 (76) 95 03/10/18 06:00 109/65 03/10/18 06:00 79 22 109/65 (80) 94 03/10/18 05:30 87 22 99/57 (71) 94 03/10/18 05:00 60 03/10/18 05:00 91 22 101/66 (78) 92 03/10/18 05:00 110/66 03/10/18 04:57 89 22 60 03/10/18 04:30 92 21 105/62 (76) 93 03/10/18 04:00 50 03/10/18 04:00 90 03/10/18 04:00 100.7 91 22 104/68 (80) 94 03/10/18 04:00 98/60 03/10/18 04:00 Mechanical Ventilator 03/10/18 03:30 90 25 111/70 (84) 91 03/10/18 03:24 84 25 50 03/10/18 03:00 87 22 118/68 (85) 98 03/10/18 03:00 118/68 03/10/18 02:30 83 23 121/69 (86) 96 03/10/18 02:00 81 21 102/89 (93) 97 03/10/18 02:00 102/89 03/10/18 01:30 81 20 106/63 (77) 97 03/10/18 01:03 76 22 50 03/10/18 01:00 105/72 03/10/18 01:00 80 20 105/72 (83) 97 03/10/18 00:30 79 20 116/66 (83) 97 03/10/18 00:00 40 03/10/18 00:00 98.3 80 19 102/70 (81) 100 03/10/18 00:00 103/64 03/10/18 00:00 74 03/10/18 00:00 Mechanical Ventilator 03/09/18 23:30 80 21 91/66 (74) 96 03/09/18 23:03 77 20 50 03/09/18 23:00 81 22 92/63 (73) 95 03/09/18 23:00 92/63 03/09/18 22:30 81 22 101/70 (80) 95 03/09/18 22:00 106/63 03/09/18 22:00 79 22 102/75 (84) 96 03/09/18 21:30 84 20 113/75 (88) 96 03/09/18 21:30 84 22 128/80 (96) 95 03/09/18 21:00 92/63 03/09/18 21:00 85 22 50 03/09/18 21:00 84 21 103/69 (80) 95 03/09/18 20:00 85 03/09/18 20:00 40 03/09/18 20:00 99.5 85 21 128/80 (96) 97 03/09/18 20:00 Mechanical Ventilator 03/09/18 19:30 83 21 126/79 (95) 97 03/09/18 19:00 125/75 03/09/18 19:00 81 22 125/78 (94) 96 03/09/18 18:59 88 21 50 03/09/18 18:30 84 25 107/72 (84) 94 03/09/18 18:00 83 25 101/70 (80) 95 03/09/18 18:00 101/70 03/09/18 18:00 107/70 03/09/18 18:00 83 107/70 03/09/18 17:30 81 24 112/62 (79) 95 03/09/18 17:00 125/72 03/09/18 17:00 79 22 125/72 (89) 95 03/09/18 16:34 75 19 50 03/09/18 16:30 76 20 98/68 (78) 96 03/09/18 16:00 73 03/09/18 16:00 125/72 03/09/18 16:00 40 03/09/18 16:00 98.9 72 27 100/66 (77) 93 03/09/18 16:00 Mechanical Ventilator 03/09/18 15:30 73 33 105/60 (75) 92 03/09/18 15:00 104/74 03/09/18 15:00 75 21 104/74 (84) 95 03/09/18 14:47 77 33 40 03/09/18 14:30 72 26 102/65 (77) 94 03/09/18 14:00 71 21 109/69 (82) 95 03/09/18 14:00 109/69 03/09/18 13:30 72 29 100/70 (80) 95 03/09/18 13:00 79 21 97/61 (73) 93 03/09/18 13:00 97/61 03/09/18 12:51 78 23 50 03/09/18 12:30 77 28 113/66 (82) 96 03/09/18 12:22 86 123/75 03/09/18 12:00 95 03/09/18 12:00 50 03/09/18 12:00 Mechanical Ventilator 03/09/18 12:00 108/68 03/09/18 12:00 108/68 03/09/18 12:00 99.1 87 19 108/68 (81) 97 03/09/18 11:30 85 19 117/81 (93) 97 03/09/18 11:00 125/73 03/09/18 11:00 97 22 125/73 (90) 98 03/09/18 10:45 95 19 60 03/09/18 10:30 85 20 110/72 (85) 97 03/09/18 10:17 89 03/09/18 10:08 108/71 12/7/18 10:00 86 20 102/66 (78) 96 03/09/18 10:00 102/66 03/09/18 09:30 88 20 96/62 (73) 96 03/09/18 09:00 90 97/71 03/09/18 09:00 97/67 03/09/18 09:00 90 19 97/71 (80) 97 03/09/18 08:39 94 33 70 03/09/18 08:30 88 21 105/66 (79) 97 03/09/18 08:04 80 03/09/18 08:00 99.1 86 19 98/60 (73) 97 03/09/18 08:00 98/60 03/09/18 08:00 Mechanical Ventilator 03/09/18 08:00 90 Intake and Output 03/09/18 03/10/18 19:00 07:00 Intake Total 2453.5 ml 2624.34 ml Output Total 1655 ml 1225 ml Balance 798.5 ml 1399.34 ml Free Water 250 ml 900 ml IV Total 1808.5 ml 1469.34 ml Tube Feeding 105 ml 255 ml Other 290 ml Output Urine Total 1655 ml 1225 ml Laboratory Tests 03/10/18 05:00: White Blood Count 13.5H, Red Blood Count 5.64, Hemoglobin 14.6, Hematocrit 46.5 , Mean Corpuscular Volume 82, Mean Corpuscular Hemoglobin 25.9L, Mean Corpuscular Hemoglobin Concent 31.5L, Red Cell Distribution Width 18.0H, Platelet Count 220, Mean Platelet Volume 8.1, Neutrophils (%) (Auto) 83.4H, Lymphocytes (%) (Auto) 9.2L, Monocytes (%) (Auto) 5.5, Eosinophils (%) (Auto) 1.4, Basophils (%) (Auto) 0.4, Sodium Level 152H, Potassium Level 3.1L, Chloride Level 114H, Carbon Dioxide Level 32, Anion Gap 6, Blood Urea Nitrogen 37H, Creatinine 1.5H, Estimat Glomerular Filtration Rate 48.6, Glucose Level 261H, Calcium Level 7.8L, Phosphorus Level 2.4L, Magnesium Level 2.1, Total Bilirubin 3.0H, Direct Bilirubin 1.8H, Aspartate Amino Transf (AST/SGOT) 24, Alanine Aminotransferase (ALT/SGPT) 57, Alkaline Phosphatase 164H, Total Protein 5.9L, Albumin 1.6L, Globulin 4.3, Albumin/Globulin Ratio 0.4L Height (Feet): 6 Height (Inches): 0.00 Weight (Pounds): 270 General Appearance: lethargic EENT: normal ENT inspection Neck: supple Cardiovascular: tachycardia Respiratory/Chest: decreased breath sounds Abdomen: normal bowel sounds, non tender, soft Extremities: non-tender Khalif Noe MD Mar 10, 2018 07:45
--- NOTE | 2018-03-10 08:46 | General Progress Note ---
Assessment/Plan Problem List: (1) Diabetes ICD Codes: E11.9 - Type 2 diabetes mellitus without complications SNOMED: 09498358 (2) Cellulitis ICD Codes: L03.90 - Cellulitis, unspecified SNOMED: 626804919 (3) Acute renal failure ICD Codes: N17.9 - Acute kidney failure, unspecified SNOMED: 56709630 (4) Rapid atrial fibrillation ICD Codes: I48.91 - Unspecified atrial fibrillation SNOMED: 315398998 Status: unchanged Assessment/Plan vent cardio f/u abx cbc bmp am Subjective Constitutional: Reports: weakness Allergies: Coded Allergies: No Known Allergies (Unverified , 02/16/18) All Systems: reviewed and negative except above Subjective intub sedated ng in icu Objective Last 24 Hour Vital Signs Date Time Temp Pulse Resp B/P (MAP) Pulse Ox O2 Delivery O2 Flow Rate FiO2 03/10/18 07:02 85 23 60 03/10/18 06:30 99.5 82 21 103/63 (76) 95 03/10/18 06:00 109/65 03/10/18 06:00 79 22 109/65 (80) 94 03/10/18 05:30 87 22 99/57 (71) 94 03/10/18 05:00 60 03/10/18 05:00 91 22 101/66 (78) 92 03/10/18 05:00 110/66 03/10/18 04:57 89 22 60 03/10/18 04:30 92 21 105/62 (76) 93 03/10/18 04:00 50 03/10/18 04:00 90 03/10/18 04:00 100.7 91 22 104/68 (80) 94 03/10/18 04:00 98/60 03/10/18 04:00 Mechanical Ventilator 03/10/18 03:30 90 25 111/70 (84) 91 03/10/18 03:24 84 25 50 03/10/18 03:00 87 22 118/68 (85) 98 03/10/18 03:00 118/68 03/10/18 02:30 83 23 121/69 (86) 96 03/10/18 02:00 81 21 102/89 (93) 97 03/10/18 02:00 102/89 03/10/18 01:30 81 20 106/63 (77) 97 03/10/18 01:03 76 22 50 03/10/18 01:00 105/72 03/10/18 01:00 80 20 105/72 (83) 97 03/10/18 00:30 79 20 116/66 (83) 97 03/10/18 00:00 40 03/10/18 00:00 98.3 80 19 102/70 (81) 100 03/10/18 00:00 103/64 03/10/18 00:00 74 03/10/18 00:00 Mechanical Ventilator 03/09/18 23:30 80 21 91/66 (74) 96 03/09/18 23:03 77 20 50 03/09/18 23:00 81 22 92/63 (73) 95 03/09/18 23:00 92/63 03/09/18 22:30 81 22 101/70 (80) 95 03/09/18 22:00 106/63 03/09/18 22:00 79 22 102/75 (84) 96 03/09/18 21:30 84 20 113/75 (88) 96 03/09/18 21:30 84 22 128/80 (96) 95 03/09/18 21:00 92/63 03/09/18 21:00 85 22 50 03/09/18 21:00 84 21 103/69 (80) 95 03/09/18 20:00 85 03/09/18 20:00 40 03/09/18 20:00 99.5 85 21 128/80 (96) 97 03/09/18 20:00 Mechanical Ventilator 03/09/18 19:30 83 21 126/79 (95) 97 03/09/18 19:00 125/75 03/09/18 19:00 81 22 125/78 (94) 96 03/09/18 18:59 88 21 50 03/09/18 18:30 84 25 107/72 (84) 94 03/09/18 18:00 83 25 101/70 (80) 95 03/09/18 18:00 101/70 18 18:00 107/70 03/09/18 18:00 83 107/70 03/09/18 17:30 81 24 112/62 (79) 95 03/09/18 17:00 125/72 12/7/18 17:00 79 22 125/72 (89) 95 03/09/18 16:34 75 19 50 03/09/18 16:30 76 20 98/68 (78) 96 03/09/18 16:00 73 03/09/18 16:00 125/72 18 16:00 40 03/09/18 16:00 98.9 72 27 100/66 (77) 93 03/09/18 16:00 Mechanical Ventilator 03/09/18 15:30 73 33 105/60 (75) 92 03/09/18 15:00 104/74 03/09/18 15:00 75 21 104/74 (84) 95 03/09/18 14:47 77 33 40 03/09/18 14:30 72 26 102/65 (77) 94 03/09/18 14:00 71 21 109/69 (82) 95 03/09/18 14:00 109/69 03/09/18 13:30 72 29 100/70 (80) 95 03/09/18 13:00 79 21 97/61 (73) 93 03/09/18 13:00 97/61 03/09/18 12:51 78 23 50 03/09/18 12:30 77 28 113/66 (82) 96 03/09/18 12:22 86 123/75 03/09/18 12:00 95 03/09/18 12:00 50 03/09/18 12:00 Mechanical Ventilator 03/09/18 12:00 108/68 03/09/18 12:00 108/68 03/09/18 12:00 99.1 87 19 108/68 (81) 97 03/09/18 11:30 85 19 117/81 (93) 97 03/09/18 11:00 125/73 03/09/18 11:00 97 22 125/73 (90) 98 03/09/18 10:45 95 19 60 03/09/18 10:30 85 20 110/72 (85) 97 03/09/18 10:17 89 03/09/18 10:08 108/71 03/09/18 10:00 86 20 102/66 (78) 96 03/09/18 10:00 102/66 03/09/18 09:30 88 20 96/62 (73) 96 03/09/18 09:00 90 97/71 03/09/18 09:00 /03/09/18 09:00 90 19 (80) 97 Intake and Output 03/09/18 03/10/18 19:00 07:00 Intake Total 2453.5 ml 2624.34 ml Output Total 1655 ml 1225 ml Balance 798.5 ml 1399.34 ml Free Water 250 ml 900 ml IV Total 1808.5 ml 1469.34 ml Tube Feeding 105 ml 255 ml Other 290 ml Output Urine Total 1655 ml 1225 ml Laboratory Tests 03/10/18 05:00: White Blood Count 13.5H, Red Blood Count 5.64, Hemoglobin 14.6, Hematocrit 46.5 , Mean Corpuscular Volume 82, Mean Corpuscular Hemoglobin 25.9L, Mean Corpuscular Hemoglobin Concent 31.5L, Red Cell Distribution Width 18.0H, Platelet Count 220, Mean Platelet Volume 8.1, Neutrophils (%) (Auto) 83.4H, Lymphocytes (%) (Auto) 9.2L, Monocytes (%) (Auto) 5.5, Eosinophils (%) (Auto) 1.4, Basophils (%) (Auto) 0.4, Sodium Level 152H, Potassium Level 3.1L, Chloride Level 114H, Carbon Dioxide Level 32, Anion Gap 6, Blood Urea Nitrogen 37H, Creatinine 1.5H, Estimat Glomerular Filtration Rate 48.6, Glucose Level 261H, Calcium Level 7.8L, Phosphorus Level 2.4L, Magnesium Level 2.1, Total Bilirubin 3.0H, Direct Bilirubin 1.8H, Aspartate Amino Transf (AST/SGOT) 24, Alanine Aminotransferase (ALT/SGPT) 57, Alkaline Phosphatase 164H, Total Protein 5.9L, Albumin 1.6L, Globulin 4.3, Albumin/Globulin Ratio 0.4L Height (Feet): 6 Height (Inches): 0.00 Weight (Pounds): 270 General Appearance: lethargic EENT: normal ENT inspection Neck: normal alignment Cardiovascular: normal peripheral pulses, normal rate, regular rhythm Respiratory/Chest: chest wall non-tender, decreased breath sounds Abdomen: normal bowel sounds, non tender, soft Extremities: normal inspection Edema: no edema noted Arm (L), no edema noted Arm (R), no edema noted Leg (L), no edema noted Leg (R), no edema noted Pedal (L), no edema noted Pedal (R), no edema noted Generalized Neurologic: motor weakness Skin: normal pigmentation, warm/dry Mick Garcia DO Mar 10, 2018 08:46
[2018-03-10] MEDS: Carvedilol 25mg Tab ORAL SCH ×2 (09:00→21:00)
[2018-03-10] MEDS: Pantoprazole Inj IV SCH (09:01)
[2018-03-10] MEDS: Digoxin 0.5mg/2ml Inj IVP SCH (09:05)
[2018-03-10] MEDS: Eliquis 2.5mg tablet ORAL SCH ×2 (09:06→21:11)
[2018-03-10] MEDS: Furosemide 40mg tab ORAL SCH (09:08)
--- NOTE | 2018-03-10 10:47 | Diagnostic Imaging Report ---
EXAM: XR Chest, 1 View CLINICAL HISTORY: DYSPNEA TECHNIQUE: Frontal view of the chest. COMPARISON: Chest x-rays dated 03/08/18 FINDINGS: Lungs: Increased bibasilar hazy densities which may represent atelectasis versus infiltrate. Mild pulmonary vascular congestion. Pleural space: Small layering right pleural effusion, increased compared to the prior exam. Heart: Borderline enlarged, unchanged. Mediastinum: Unremarkable. Bones/joints: Unremarkable. Tubes, lines and devices: Stable positioning of the endotracheal tube. EKG leads overlie the thorax. IMPRESSION: 1. Small layering right pleural effusion, increased compared to the prior exam. 2. Increased bibasilar hazy densities which may represent atelectasis versus infiltrate. 3. Mild pulmonary vascular congestion.
[2018-03-10] MEDS: Vancomycin 750mg/NS 250ml 250 ML IVPB SCH ×2 (11:12→22:47)
--- NOTE | 2018-03-10 11:48 | Infectious Diseases Prog Note ---
Assessment/Plan Assessment/Plan s/p Code blue 03/08 Aspiration PNA -sp cx ESBL E.coli (S Zosyn, Erta) -03/08 cXR: Increasing right upper lung parenchymal opacity may reflect developing infiltrate in the right upper lobe. There is improved aeration of the right lung base -CXR: Improved aeration of the right lung, presumably representing improving atelectasis. Right lower lobe infiltrate. There may also be pleural fluid on the right. Bilateral interstitial disease. Probably on the basis of pulmonary edema. However, considerable central bronchial wall thickening suggests a significant chronic component B/l LE purulent cellulitis- legs with scratches (self inflicted) -wound cx MRSA -L foot tibia/fibula xray: No acute process -R foot tibia/fibula xray: No acute bony trauma Fever, improving Leukocytosis, improving Acute respiratory failure- due to Afib w/ RVR- n ow intubated 03/08 after Code blue Afib w/ RVR Elevated LFTs, improving - HIDA inconclusive but low prob for acute cholecysitis -HIDA: Questionable very small tracer collection in the region of the gallbladder fossa on delayed images, could represent partial filling of a nondistended gallbladder but this is not conclusive. Acute cholecystitis doubtful but not conclusively excluded based on these images and prior ultrasound, which showed a nondistended gallbladder. Patent common bile duct -Abd US: Cholelithiasis. Borderline gallbladder wall thickening, could indicate early acute cholecystitis changes. Consider hepatobiliary nuclear scan if there is high clinical suspicion. Negative for dilated ducts Incidental finding bilateral pleural effusions -acute hep panel, HIV sc neg ZHAO, resolving DM2 HTN CHF Schizoaffective disorder Plan: -Continue empiric IV Vancomycin #02/14 for cellulitis -Cont Ertapenem d # 2 for ESBL E.coli PNA ( may consider Merrem if pt does not improve ) -03/09 SP Switch ZOsyn #4 -03/06 SP Ceftriaxone #2 -03/03 SP Ancef #2 -03/01 SP Cefepime #2 -f/u cx -Monitor CBC/CMP, temperatures -wound care -Sx, GI f/u Subjective Allergies: Coded Allergies: No Known Allergies (Unverified , 02/16/18) Subjective on vent on dopamine Objective Vital Signs Last 24 Hour Vital Signs Date Time Temp Pulse Resp B/P (MAP) Pulse Ox O2 Delivery O2 Flow Rate FiO2 03/10/18 10:47 86 27 60 03/10/18 09:30 84 20 113/73 (86) 96 03/10/18 09:05 83 03/10/18 09:00 88 106/67 03/10/18 09:00 84 20 106/67 (80) 95 03/10/18 08:42 93 17 60 03/10/18 08:30 84 18 94/57 (69) 95 03/10/18 08:00 Mechanical Ventilator 03/10/18 08:00 83 20 101/68 (79) 95 03/10/18 08:00 88 03/10/18 07:02 85 23 60 03/10/18 07:00 98.5 87 18 112/74 (87) 93 03/10/18 06:30 99.5 82 21 103/63 (76) 95 03/10/18 06:00 109/65 03/10/18 06:00 79 22 109/65 (80) 94 03/10/18 05:30 87 22 99/57 (71) 94 03/10/18 05:00 60 03/10/18 05:00 91 22 101/66 (78) 92 03/10/18 05:00 110/66 03/10/18 04:57 89 22 60 03/10/18 04:30 92 21 105/62 (76) 93 03/10/18 04:00 50 03/10/18 04:00 90 03/10/18 04:00 100.7 91 22 104/68 (80) 94 03/10/18 04:00 98/60 03/10/18 04:00 Mechanical Ventilator 03/10/18 03:30 90 25 111/70 (84) 91 03/10/18 03:24 84 25 50 03/10/18 03:00 87 22 118/68 (85) 98 03/10/18 03:00 118/68 03/10/18 02:30 83 23 121/69 (86) 96 03/10/18 02:00 81 21 102/89 (93) 97 03/10/18 02:00 102/89 03/10/18 01:30 81 20 106/63 (77) 97 03/10/18 01:03 76 22 50 03/10/18 01:00 105/72 03/10/18 01:00 80 20 105/72 (83) 97 03/10/18 00:30 79 20 116/66 (83) 97 03/10/18 00:00 40 03/10/18 00:00 98.3 80 19 102/70 (81) 100 03/10/18 00:00 103/64 03/10/18 00:00 74 03/10/18 00:00 Mechanical Ventilator 03/09/18 23:30 80 21 91/66 (74) 96 03/09/18 23:03 77 20 50 03/09/18 23:00 81 22 92/63 (73) 95 03/09/18 23:00 92/63 03/09/18 22:30 81 22 101/70 (80) 95 03/09/18 22:00 106/63 03/09/18 22:00 79 22 102/75 (84) 96 03/09/18 21:30 84 20 113/75 (88) 96 03/09/18 21:30 84 22 128/80 (96) 95 03/09/18 21:00 92/63 03/09/18 21:00 85 22 50 03/09/18 21:00 84 21 103/69 (80) 95 03/09/18 20:00 85 03/09/18 20:00 40 03/09/18 20:00 99.5 85 21 128/80 (96) 97 03/09/18 20:00 Mechanical Ventilator 03/09/18 19:30 83 21 126/79 (95) 97 03/09/18 19:00 125/75 03/09/18 19:00 81 22 125/78 (94) 96 03/09/18 18:59 88 21 50 03/09/18 18:30 84 25 107/72 (84) 94 03/09/18 18:00 83 25 101/70 (80) 95 03/09/18 18:00 101/70 03/09/18 18:00 107/70 03/09/18 18:00 83 107/70 03/09/18 17:30 81 24 112/62 (79) 95 03/09/18 17:00 125/72 03/09/18 17:00 79 22 125/72 (89) 95 03/09/18 16:34 75 19 50 03/09/18 16:30 76 20 98/68 (78) 96 03/09/18 16:00 73 03/09/18 16:00 125/72 03/09/18 16:00 40 03/09/18 16:00 98.9 72 27 100/66 (77) 93 03/09/18 16:00 Mechanical Ventilator 03/09/18 15:30 73 33 105/60 (75) 92 03/09/18 15:00 104/74 03/09/18 15:00 75 21 104/74 (84) 95 03/09/18 14:47 77 33 40 03/09/18 14:30 72 26 102/65 (77) 94 03/09/18 14:00 71 21 109/69 (82) 95 03/09/18 14:00 109/69 03/09/18 13:30 72 29 100/70 (80) 95 03/09/18 13:00 79 21 97/61 (73) 93 03/09/18 13:00 97/61 03/09/18 12:51 78 23 50 03/09/18 12:30 77 28 113/66 (82) 96 03/09/18 12:22 86 123/75 03/09/18 12:00 95 03/09/18 12:00 50 03/09/18 12:00 Mechanical Ventilator 03/09/18 12:00 108/68 03/09/18 12:00 108/68 03/09/18 12:00 99.1 87 19 108/68 (81) 97 Height (Feet): 6 Height (Inches): 0.00 Weight (Pounds): 270 HEENT: anicteric Respiratory/Chest: no respiratory distress Cardiovascular: normal peripheral pulses Abdomen: no organomegaly Laboratory Tests Test 03/10/18 05:00 03/10/18 08:52 White Blood Count 13.5 K/UL (4.8-10.8) H Red Blood Count 5.64 M/UL (4.70-6.10) Hemoglobin 14.6 G/DL (14.2-18.0) Hematocrit 46.5 % (42.0-52.0) Mean Corpuscular Volume 82 FL (80-99) Mean Corpuscular Hemoglobin 25.9 PG (27.0-31.0) L Mean Corpuscular Hemoglobin Concent 31.5 G/DL (32.0-36.0) L Red Cell Distribution Width 18.0 % (11.6-14.8) H Platelet Count 220 K/UL (150-450) Mean Platelet Volume 8.1 FL (6.5-10.1) Neutrophils (%) (Auto) 83.4 % (45.0-75.0) H Lymphocytes (%) (Auto) 9.2 % (20.0-45.0) L Monocytes (%) (Auto) 5.5 % (1.0-10.0) Eosinophils (%) (Auto) 1.4 % (0.0-3.0) Basophils (%) (Auto) 0.4 % (0.0-2.0) Sodium Level 152 MMOL/L (136-145) H Potassium Level 3.1 MMOL/L (3.5-5.1) L Chloride Level 114 MMOL/L (98-107) H Carbon Dioxide Level 32 MMOL/L (21-32) Anion Gap 6 mmol/L (5-15) Blood Urea Nitrogen 37 mg/dL (7-18) H Creatinine 1.5 MG/DL (0.55-1.30) H Estimat Glomerular Filtration Rate 48.6 mL/min (>60) Glucose Level 261 MG/DL (74-106) H Calcium Level 7.8 MG/DL (8.5-10.1) L Phosphorus Level 2.4 MG/DL (2.5-4.9) L Magnesium Level 2.1 MG/DL (1.8-2.4) Total Bilirubin 3.0 MG/DL (0.2-1.0) H Direct Bilirubin 1.8 MG/DL (0.0-0.3) H Aspartate Amino Transf (AST/SGOT) 24 U/L (15-37) Alanine Aminotransferase (ALT/SGPT) 57 U/L (12-78) Alkaline Phosphatase 164 U/L (46-116) H Total Protein 5.9 G/DL (6.4-8.2) L Albumin 1.6 G/DL (3.4-5.0) L Globulin 4.3 g/dL Albumin/Globulin Ratio 0.4 (1.0-2.7) L Arterial Blood pH 7.533 (7.350-7.450) Arterial Blood Partial Pressure CO2 36.9 mmHg (35.0-45.0) Arterial Blood Partial Pressure O2 69.5 mmHg (75.0-100.0) L Arterial Blood HCO3 30.4 mmol/L (22.0-26.0) H Arterial Blood Oxygen Saturation 94.2 % (95-100) L Arterial Blood Base Excess 7.4 (-2-2) H Janes Test Positive Current Medications Medications (Trade) Dose Ordered Sig/Roseline Route PRN Reason Start Time Stop Time Status Last Admin Dose Admin Acetaminophen (Tylenol) 650 mg Q4H PRN ORAL fever (temp>100.5F) 03/08/18 23:45 03/30/18 19:44 Apixaban (Eliquis) 5 mg Q12HR ORAL 03/09/18 09:00 04/04/18 20:59 03/10/18 09:06 Carvedilol (Coreg) 25 mg EVERY 12 HOURS ORAL 03/09/18 09:00 04/02/18 20:59 Chlorhexidine Gluconate (Ashley-Hex 2%) 1 applic DAILY@2000 TOPIC 03/09/18 20:00 04/01/18 19:59 03/09/18 20:02 Dextrose 1,000 ml @ 100 mls/hr Q10H IV 03/08/18 23:00 04/07/18 10:59 03/10/18 05:19 Dextrose (Dextrose 50%) 25 ml Q30M PRN IV Hypoglycemia 03/08/18 23:00 03/30/18 13:59 Dextrose (Dextrose 50%) 50 ml Q30M PRN IV Hypoglycemia 03/08/18 23:00 03/30/18 13:59 Digoxin (Lanoxin) 0.125 mg DAILY IVP 03/09/18 09:00 04/02/18 14:21 03/10/18 09:05 Diltiazem HCl (Cardizem) 90 mg EVERY 6 HOURS ORAL 03/09/18 00:00 04/06/18 11:59 03/09/18 12:22 Dopamine HCl/ Dextrose 250 ml @ 0 mls/hr Q24H IV 03/09/18 10:00 04/08/18 09:59 03/09/18 21:00 Ertapenem 1 gm/ Sodium Chloride 55 ml @ 110 mls/hr Q24H IVPB 03/09/18 12:00 03/14/18 11:59 03/09/18 12:00 Furosemide (Lasix) 40 mg DAILY ORAL 03/09/18 09:00 04/04/18 08:59 03/10/18 09:08 Haloperidol Lactate (Haldol) 5 mg Q4H PRN IM Agitation 03/08/18 23:45 03/31/18 19:44 Hydralazine HCl (Apresoline) 25 mg Q6HR ORAL 03/09/18 00:00 04/04/18 18:21 Insulin Aspart (NovoLOG) BEFORE MEALS AND HS SUBQ 03/09/18 06:30 03/31/18 16:29 03/10/18 11:15 Lorazepam (Ativan 2mg/ml 1ml) 1 mg Q4H PRN IV For Anxiety 03/09/18 02:00 03/14/18 17:59 Lorazepam (Ativan 2mg/ml 1ml) 2 mg Q4H PRN IV For more severe Anxiety 03/08/18 23:15 03/15/18 23:14 Metoprolol Tartrate (Lopressor) 10 mg Q1H PRN IVP Heart rate >120 per minute 03/08/18 23:45 03/31/18 19:44 Morphine Sulfate (Morphine Sulfate) 4 mg Q4H PRN IVP For Pain 03/08/18 23:15 03/15/18 23:14 Nitroglycerin (Ntg) 0.4 mg Q5M PRN SL Prn Chest Pain 03/08/18 23:00 03/30/18 18:20 Ondansetron HCl (Zofran) 4 mg Q6H PRN IVP Nausea & Vomiting 03/09/18 01:45 04/05/18 19:44 Pantoprazole (Protonix) 40 mg DAILY IV 03/09/18 09:00 04/08/18 08:59 03/10/18 09:01 Polyethylene Glycol (Miralax) 17 gm DAILYPRN PRN ORAL Constipation 03/09/18 19:45 04/05/18 19:44 Temazepam (Restoril) 15 mg HSPRN PRN ORAL Insomnia 03/09/18 19:45 03/13/18 19:44 Vancomycin HCl (Vanco rx to dose) 1 ea DAILY PRN MISC rx protocol 03/09/18 09:00 04/05/18 19:44 Vancomycin/Sodium Chloride 250 ml @ 167 mls/hr Q12H IVPB 03/08/18 23:00 03/11/18 22:59 03/10/18 11:12 Eddi Styles MD Mar 10, 2018 11:48
[2018-03-10] MEDS: Ertapenem 1 GM in NS 55 ML IVPB SCH (12:39)
--- NOTE | 2018-03-10 13:42 | Nephrology Progress Note ---
Assessment/Plan Assessment 1.hypernatremia 2.ZHAO 3.ckd 4.respiratory failure 5.CHF Plan free water via NG hold lasix monitoring renal function avoid NSAID replace electrolyte as need it Subjective Constitutional: Reports: no symptoms HEENT: Reports: no symptoms Genitourinary: Reports: no symptoms Neurologic/Psychiatric: Reports: no symptoms Subjective unresponsive Objective Objective Last 24 Hour Vital Signs Date Time Temp Pulse Resp B/P (MAP) Pulse Ox O2 Delivery O2 Flow Rate FiO2 03/10/18 13:27 77 20 60 03/10/18 12:00 Mechanical Ventilator 03/10/18 11:30 82 20 114/78 (90) 94 03/10/18 11:00 84 21 122/73 (89) 95 03/10/18 10:47 86 27 60 03/10/18 10:30 84 20 119/75 (90) 95 03/10/18 09:30 84 20 113/73 (86) 96 03/10/18 09:05 83 03/10/18 09:00 88 106/67 03/10/18 09:00 84 20 106/67 (80) 95 03/10/18 08:42 93 17 60 03/10/18 08:30 84 18 94/57 (69) 95 03/10/18 08:00 Mechanical Ventilator 03/10/18 08:00 83 20 101/68 (79) 95 03/10/18 08:00 88 03/10/18 07:02 85 23 60 03/10/18 07:00 98.5 87 18 112/74 (87) 93 03/10/18 06:30 99.5 82 21 103/63 (76) 95 03/10/18 06:00 109/65 03/10/18 06:00 79 22 109/65 (80) 94 03/10/18 05:30 87 22 99/57 (71) 94 03/10/18 05:00 60 03/10/18 05:00 91 22 101/66 (78) 92 03/10/18 05:00 110/66 03/10/18 04:57 89 22 60 03/10/18 04:30 92 21 105/62 (76) 93 03/10/18 04:00 50 03/10/18 04:00 90 03/10/18 04:00 100.7 91 22 104/68 (80) 94 03/10/18 04:00 98/60 03/10/18 04:00 Mechanical Ventilator 03/10/18 03:30 90 25 111/70 (84) 91 03/10/18 03:24 84 25 50 03/10/18 03:00 87 22 118/68 (85) 98 03/10/18 03:00 118/68 03/10/18 02:30 83 23 121/69 (86) 96 03/10/18 02:00 81 21 102/89 (93) 97 03/10/18 02:00 102/89 03/10/18 01:30 81 20 106/63 (77) 97 03/10/18 01:03 76 22 50 03/10/18 01:00 105/72 03/10/18 01:00 80 20 105/72 (83) 97 03/10/18 00:30 79 20 116/66 (83) 97 03/10/18 00:00 40 03/10/18 00:00 98.3 80 19 102/70 (81) 100 03/10/18 00:00 103/64 03/10/18 00:00 74 03/10/18 00:00 Mechanical Ventilator 03/09/18 23:30 80 21 91/66 (74) 96 03/09/18 23:03 77 20 50 03/09/18 23:00 81 22 92/63 (73) 95 03/09/18 23:00 92/63 03/09/18 22:30 81 22 101/70 (80) 95 03/09/18 22:00 106/63 03/09/18 22:00 79 22 102/75 (84) 96 03/09/18 21:30 84 20 113/75 (88) 96 03/09/18 21:30 84 22 128/80 (96) 95 03/09/18 21:00 92/63 03/09/18 21:00 85 22 50 03/09/18 21:00 84 21 103/69 (80) 95 03/09/18 20:00 85 03/09/18 20:00 40 03/09/18 20:00 99.5 85 21 128/80 (96) 97 03/09/18 20:00 Mechanical Ventilator 03/09/18 19:30 83 21 126/79 (95) 97 12/7/18 19:00 125/75 03/09/18 19:00 81 22 125/78 (94) 96 03/09/18 18:59 88 21 50 03/09/18 18:30 84 25 107/72 (84) 94 03/09/18 18:00 83 25 101/70 (80) 95 03/09/18 18:00 101/70 18 18:00 107/70 03/09/18 18:00 83 107/70 03/09/18 17:30 81 24 112/62 (79) 95 03/09/18 17:00 125/72 03/09/18 17:00 79 22 125/72 (89) 95 03/09/18 16:34 75 19 50 03/09/18 16:30 76 20 98/68 (78) 96 03/09/18 16:00 73 03/09/18 16:00 125/72 03/09/18 16:00 40 03/09/18 16:00 98.9 72 27 100/66 (77) 93 03/09/18 16:00 Mechanical Ventilator 03/09/18 15:30 73 33 105/60 (75) 92 03/09/18 15:00 104/74 03/09/18 15:00 75 21 104/74 (84) 95 03/09/18 14:47 77 33 40 03/09/18 14:30 72 26 102/65 (77) 94 03/09/18 14:00 71 21 109/69 (82) 95 03/09/18 14:00 109/69 Intake and Output 03/09/18 03/10/18 18:59 06:59 Intake Total 2366.0 ml 2837.34 ml Output Total 1615 ml 1225 ml Balance 751.0 ml 1612.34 ml Free Water 250 ml 900 ml IV Total 1736.0 ml 1692.34 ml Tube Feeding 90 ml 245 ml Other 290 ml Output Urine Total 1615 ml 1225 ml Laboratory Tests 03/10/18 05:00: White Blood Count 13.5H, Red Blood Count 5.64, Hemoglobin 14.6, Hematocrit 46.5 , Mean Corpuscular Volume 82, Mean Corpuscular Hemoglobin 25.9L, Mean Corpuscular Hemoglobin Concent 31.5L, Red Cell Distribution Width 18.0H, Platelet Count 220, Mean Platelet Volume 8.1, Neutrophils (%) (Auto) 83.4H, Lymphocytes (%) (Auto) 9.2L, Monocytes (%) (Auto) 5.5, Eosinophils (%) (Auto) 1.4, Basophils (%) (Auto) 0.4, Sodium Level 152H, Potassium Level 3.1L, Chloride Level 114H, Carbon Dioxide Level 32, Anion Gap 6, Blood Urea Nitrogen 37H, Creatinine 1.5H, Estimat Glomerular Filtration Rate 48.6, Glucose Level 261H, Calcium Level 7.8L, Phosphorus Level 2.4L, Magnesium Level 2.1, Total Bilirubin 3.0H, Direct Bilirubin 1.8H, Aspartate Amino Transf (AST/SGOT) 24, Alanine Aminotransferase (ALT/SGPT) 57, Alkaline Phosphatase 164H, Total Protein 5.9L, Albumin 1.6L, Globulin 4.3, Albumin/Globulin Ratio 0.4L 03/10/18 08:52: Arterial Blood pH 7.533H, Arterial Blood Partial Pressure CO2 36.9, Arterial Blood Partial Pressure O2 69.5L, Arterial Blood HCO3 30.4H, Arterial Blood Oxygen Saturation 94.2L, Arterial Blood Base Excess 7.4H, Janes Test Positive Height (Feet): 6 Height (Inches): 0.00 Weight (Pounds): 270 Objective HEENT: Atraumatic and normocephalic. Anicteric. Pupils are equal, round, and reactive to light and accommodation. Extraocular muscles intact. Altered. NECK: JVP elevated about 5cm. No carotid bruits. Carotid upstrokes 2+ bilaterally. CARDIOVASCULAR: Normal S1, S2. Irregularly irregular rhythm. 2/6 Holosystolic murmur, gallop, or rub. LUNGS: Diminished BS both lungs. ABDOMEN: Soft, nontender, and nondistended. No hepatosplenomegaly. Positive bowel sounds. EXTREMITIES: There is 1+ bilateral lower extremity edema with ulcerations. Maryana Collier MD Mar 10, 2018 13:42
--- NOTE | 2018-03-10 14:08 | General Surgery Progress Note ---
General Surgery-Progress Note Subjective Additional Comments no acute events. stable in ICU Objective Last 24 Hour Vital Signs Date Time Temp Pulse Resp B/P (MAP) Pulse Ox O2 Delivery O2 Flow Rate FiO2 03/10/18 13:27 77 20 60 03/10/18 12:00 Mechanical Ventilator 03/10/18 11:30 82 20 114/78 (90) 94 03/10/18 11:00 84 21 122/73 (89) 95 03/10/18 10:47 86 27 60 03/10/18 10:30 84 20 119/75 (90) 95 03/10/18 09:30 84 20 113/73 (86) 96 03/10/18 09:05 83 03/10/18 09:00 88 106/67 03/10/18 09:00 84 20 106/67 (80) 95 03/10/18 08:42 93 17 60 03/10/18 08:30 84 18 94/57 (69) 95 03/10/18 08:00 Mechanical Ventilator 03/10/18 08:00 83 20 101/68 (79) 95 03/10/18 08:00 88 03/10/18 07:02 85 23 60 03/10/18 07:00 98.5 87 18 112/74 (87) 93 03/10/18 06:30 99.5 82 21 103/63 (76) 95 03/10/18 06:00 109/65 03/10/18 06:00 79 22 109/65 (80) 94 03/10/18 05:30 87 22 99/57 (71) 94 03/10/18 05:00 60 03/10/18 05:00 91 22 101/66 (78) 92 03/10/18 05:00 110/66 03/10/18 04:57 89 22 60 03/10/18 04:30 92 21 105/62 (76) 93 03/10/18 04:00 50 03/10/18 04:00 90 03/10/18 04:00 100.7 91 22 104/68 (80) 94 03/10/18 04:00 98/60 03/10/18 04:00 Mechanical Ventilator 03/10/18 03:30 90 25 111/70 (84) 91 03/10/18 03:24 84 25 50 03/10/18 03:00 87 22 118/68 (85) 98 03/10/18 03:00 118/68 03/10/18 02:30 83 23 121/69 (86) 96 03/10/18 02:00 81 21 102/89 (93) 97 03/10/18 02:00 102/89 03/10/18 01:30 81 20 106/63 (77) 97 03/10/18 01:03 76 22 50 03/10/18 01:00 105/72 03/10/18 01:00 80 20 105/72 (83) 97 03/10/18 00:30 79 20 116/66 (83) 97 03/10/18 00:00 40 03/10/18 00:00 98.3 80 19 102/70 (81) 100 03/10/18 00:00 103/64 03/10/18 00:00 74 03/10/18 00:00 Mechanical Ventilator 03/09/18 23:30 80 21 91/66 (74) 96 03/09/18 23:03 77 20 50 03/09/18 23:00 81 22 92/63 (73) 95 03/09/18 23:00 92/63 03/09/18 22:30 81 22 101/70 (80) 95 03/09/18 22:00 106/63 03/09/18 22:00 79 22 102/75 (84) 96 03/09/18 21:30 84 20 113/75 (88) 96 03/09/18 21:30 84 22 128/80 (96) 95 03/09/18 21:00 92/63 03/09/18 21:00 85 22 50 03/09/18 21:00 84 21 103/69 (80) 95 03/09/18 20:00 85 03/09/18 20:00 40 03/09/18 20:00 99.5 85 21 128/80 (96) 97 03/09/18 20:00 Mechanical Ventilator 03/09/18 19:30 83 21 126/79 (95) 97 03/09/18 19:00 125/75 03/09/18 19:00 81 22 125/78 (94) 96 03/09/18 18:59 88 21 50 03/09/18 18:30 84 25 107/72 (84) 94 03/09/18 18:00 83 25 101/70 (80) 95 12/7/18 18:00 101/70 18 18:00 107/70 03/09/18 18:00 83 107/70 03/09/18 17:30 81 24 112/62 (79) 95 03/09/18 17:00 125/72 03/09/18 17:00 79 22 125/72 (89) 95 03/09/18 16:34 75 19 50 03/09/18 16:30 76 20 98/68 (78) 96 03/09/18 16:00 73 03/09/18 16:00 125/72 03/09/18 16:00 40 03/09/18 16:00 98.9 72 27 100/66 (77) 93 03/09/18 16:00 Mechanical Ventilator 03/09/18 15:30 73 33 105/60 (75) 92 03/09/18 15:00 104/74 03/09/18 15:00 75 21 104/74 (84) 95 03/09/18 14:47 77 33 40 03/09/18 14:30 72 26 102/65 (77) 94 I&O Intake and Output 03/09/18 03/10/18 18:59 06:59 Intake Total 2366.0 ml 2837.34 ml Output Total 1615 ml 1225 ml Balance 751.0 ml 1612.34 ml Free Water 250 ml 900 ml IV Total 1736.0 ml 1692.34 ml Tube Feeding 90 ml 245 ml Other 290 ml Output Urine Total 1615 ml 1225 ml Dressing: dry Wound: clean Drains: other Cardiovascular: RSR Respiratory: clear, decreased breath sounds, other - vent Abdomen: soft, flat, present bowel sounds Extremities: other Laboratory Tests Test 03/10/18 05:00 03/10/18 08:52 White Blood Count 13.5 K/UL (4.8-10.8) H Red Blood Count 5.64 M/UL (4.70-6.10) Hemoglobin 14.6 G/DL (14.2-18.0) Hematocrit 46.5 % (42.0-52.0) Mean Corpuscular Volume 82 FL (80-99) Mean Corpuscular Hemoglobin 25.9 PG (27.0-31.0) L Mean Corpuscular Hemoglobin Concent 31.5 G/DL (32.0-36.0) L Red Cell Distribution Width 18.0 % (11.6-14.8) H Platelet Count 220 K/UL (150-450) Mean Platelet Volume 8.1 FL (6.5-10.1) Neutrophils (%) (Auto) 83.4 % (45.0-75.0) H Lymphocytes (%) (Auto) 9.2 % (20.0-45.0) L Monocytes (%) (Auto) 5.5 % (1.0-10.0) Eosinophils (%) (Auto) 1.4 % (0.0-3.0) Basophils (%) (Auto) 0.4 % (0.0-2.0) Sodium Level 152 MMOL/L (136-145) H Potassium Level 3.1 MMOL/L (3.5-5.1) L Chloride Level 114 MMOL/L (98-107) H Carbon Dioxide Level 32 MMOL/L (21-32) Anion Gap 6 mmol/L (5-15) Blood Urea Nitrogen 37 mg/dL (7-18) H Creatinine 1.5 MG/DL (0.55-1.30) H Estimat Glomerular Filtration Rate 48.6 mL/min (>60) Glucose Level 261 MG/DL (74-106) H Calcium Level 7.8 MG/DL (8.5-10.1) L Phosphorus Level 2.4 MG/DL (2.5-4.9) L Magnesium Level 2.1 MG/DL (1.8-2.4) Total Bilirubin 3.0 MG/DL (0.2-1.0) H Direct Bilirubin 1.8 MG/DL (0.0-0.3) H Aspartate Amino Transf (AST/SGOT) 24 U/L (15-37) Alanine Aminotransferase (ALT/SGPT) 57 U/L (12-78) Alkaline Phosphatase 164 U/L (46-116) H Total Protein 5.9 G/DL (6.4-8.2) L Albumin 1.6 G/DL (3.4-5.0) L Globulin 4.3 g/dL Albumin/Globulin Ratio 0.4 (1.0-2.7) L Arterial Blood pH 7.533 (7.350-7.450) Arterial Blood Partial Pressure CO2 36.9 mmHg (35.0-45.0) Arterial Blood Partial Pressure O2 69.5 mmHg (75.0-100.0) L Arterial Blood HCO3 30.4 mmol/L (22.0-26.0) H Arterial Blood Oxygen Saturation 94.2 % (95-100) L Arterial Blood Base Excess 7.4 (-2-2) H Janes Test Positive Plan Problems: (1) Abnormal LFTs Assessment & Plan: will obtain hepatitis panel US abdomen - Cholelithiasis; Borderline gallbladder wall thickening, could indicate early acute cholecystitis changes. Consider hepatobiliary nuclear scan if there is high clinical suspicion Negative for dilated ducts will monitor clinically for now HIDA noted hep panel negative hiv neg LFTs noted / improving no surgical intervention necessary at this time. -unlikely cholecystitis. likely contracted GB trend labs (2) Cellulitis Assessment & Plan: chronic bilateral lower extremity wounds / ulcers acute on chronic cellulitis no abscess noted serous drainage multiple wounds that seem traumatic like cuts some small ulcers see wound photos for details -IV Abx as per ID -Keep legs elevated -apply skin protectant, hydrogel, non adherent dressings, and wrap ICU care and management Garth Cornelius Mar 10, 2018 14:08
--- NOTE | 2018-03-10 16:28 | Neurology Progress Note ---
Interim History Interim History Interim History Mr. Cornejo looks about the same as yesterday. He is intubated, artificially ventilated and in the ICU. He is in a deep coma and cannot be aroused. There has been no improvement in his mental state or other neurologic dysfunction. Review of Systems Neuro Review of Systems Unable to obtain. Objective Physical Exam Last Vital Signs Date Time Temp Pulse Resp B/P (MAP) Pulse Ox O2 Delivery O2 Flow Rate FiO2 03/10/18 15:27 76 23 60 03/10/18 14:00 99/64 03/10/18 14:00 94 03/10/18 12:00 Mechanical Ventilator 03/10/18 07:00 98.5 03/08/18 20:00 15.0 Laboratory Tests Test 03/10/18 05:00 03/10/18 08:52 White Blood Count 13.5 K/UL (4.8-10.8) H Red Blood Count 5.64 M/UL (4.70-6.10) Hemoglobin 14.6 G/DL (14.2-18.0) Hematocrit 46.5 % (42.0-52.0) Mean Corpuscular Volume 82 FL (80-99) Mean Corpuscular Hemoglobin 25.9 PG (27.0-31.0) L Mean Corpuscular Hemoglobin Concent 31.5 G/DL (32.0-36.0) L Red Cell Distribution Width 18.0 % (11.6-14.8) H Platelet Count 220 K/UL (150-450) Mean Platelet Volume 8.1 FL (6.5-10.1) Neutrophils (%) (Auto) 83.4 % (45.0-75.0) H Lymphocytes (%) (Auto) 9.2 % (20.0-45.0) L Monocytes (%) (Auto) 5.5 % (1.0-10.0) Eosinophils (%) (Auto) 1.4 % (0.0-3.0) Basophils (%) (Auto) 0.4 % (0.0-2.0) Sodium Level 152 MMOL/L (136-145) H Potassium Level 3.1 MMOL/L (3.5-5.1) L Chloride Level 114 MMOL/L (98-107) H Carbon Dioxide Level 32 MMOL/L (21-32) Anion Gap 6 mmol/L (5-15) Blood Urea Nitrogen 37 mg/dL (7-18) H Creatinine 1.5 MG/DL (0.55-1.30) H Estimat Glomerular Filtration Rate 48.6 mL/min (>60) Glucose Level 261 MG/DL (74-106) H Calcium Level 7.8 MG/DL (8.5-10.1) L Phosphorus Level 2.4 MG/DL (2.5-4.9) L Magnesium Level 2.1 MG/DL (1.8-2.4) Total Bilirubin 3.0 MG/DL (0.2-1.0) H Direct Bilirubin 1.8 MG/DL (0.0-0.3) H Aspartate Amino Transf (AST/SGOT) 24 U/L (15-37) Alanine Aminotransferase (ALT/SGPT) 57 U/L (12-78) Alkaline Phosphatase 164 U/L (46-116) H Total Protein 5.9 G/DL (6.4-8.2) L Albumin 1.6 G/DL (3.4-5.0) L Globulin 4.3 g/dL Albumin/Globulin Ratio 0.4 (1.0-2.7) L Arterial Blood pH 7.533 (7.350-7.450) Arterial Blood Partial Pressure CO2 36.9 mmHg (35.0-45.0) Arterial Blood Partial Pressure O2 69.5 mmHg (75.0-100.0) L Arterial Blood HCO3 30.4 mmol/L (22.0-26.0) H Arterial Blood Oxygen Saturation 94.2 % (95-100) L Arterial Blood Base Excess 7.4 (-2-2) H Janes Test Positive Neurologic Exam Objective PHYSICAL EXAMINATION: GENERAL: He is a well developed, well nourished, gentleman, lying in an ICU bed, connected to a ventilator via an priti-tracheal tube. HEAD: Normocephalic and atraumatic. EENT: Examination benign. NECK: No neck rigidity was observed. NEUROLOGIC EXAMINATION: MENTAL STATUS EXAMINATION: He could not be aroused even on deep painful stimuli. Further mental status testing was impossible. SPEECH: Could not be tested. LANGUAGE: Could not be tested. CRANIAL NERVE EXAMINATION: II: He did not blink to threat. III, IV & : The external ocular movements were present on oculocephalic maneuvers - but restricted. The pupils were 3 mm in diameter and did not react to light. V & VII: The corneal reflexes were subdued but equal. VIII: He did not respond to sounds and had no nystagmus. IX & X: The gag reflex was absent. XI: The sternocleidomastoids and trapezii did not function. XII: The tongue could not be tested adequately. MOTOR SYSTEM: The tone was normal in all 4 extremities. Examination of muscle mass revealed no focal wasting. 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 Examination of power was impossible to perform because even on applying deep painful stimuli no movements were seen. SENSORY EXAMINATION: He did not respond even to deep painful stimuli. REFLEXES: 0 at the biceps, triceps, brachioradialis, knees, and ankles. The right plantar response could not be tested as he had no toes, and the left plantar response was mute. COORDINATION, STANCE & GAIT: Could not be tested. Impression/Recommendations Diagnostic Impression 1. Mr. Dustin Cornejo is a 57-year-old, gentleman, of unknown handedness, who was hospitalized for right lower extremity cellulitis and then in the hospital deteriorated to a point where became quite altered with regards to his mental state on 03/05/2018 and was transferred to the ICU. He was noted to have atrial fibrillation with a rapid ventricular rate and shortness of breath related to hypoxic respiratory failure and then became agitated as a result of which he was given multiple doses of Ativan, Haldol, and morphine. 2. He looks about the same as yesterday. He is intubated, artificially ventilated and in the ICU. He is in a deep coma and cannot be aroused. There has been no improvement in his mental state or other neurologic dysfunction. 3. On neurological examination, at this time, he is in a deep coma. He has no signs of cortical function. He does have brainstem function in the form of restricted eye movements on oculocephalic maneuvers and corneal reflexes that are diminished but equal. He has globally absent deep tendon reflexes, and plantar response on the left side is mute. 4. His latest laboratory data on my initial evaluation revealed his WBC count was elevated to 13,400. He had his last ESR on 03/02/2018 and it was 7. His blood gases revealed that he had a pH of 7.48, pCO2 of 35, and pO2 of 51. His latest chemistry panel revealed that his sodium was elevated to 155. His chloride was elevated to 118. His BUN was elevated to 41. His creatinine was elevated to 1.3. His glucose was elevated to 208. His total bilirubin was elevated at 2.8. His AST, ALT, and alkaline phosphatase were all elevated. His albumin was low at 2.2. His urine toxicology screen on admission revealed that tetrahydrocannabinols were present. His serologies were negative for HIV. 5. Further laboratory tests revealed a normal B12, Folate, TSH but the Hb A1C was elevated at 9.2%. 6. The CT of the brain done on 03/07/18 revealed atrophy and deep white matter disease but no acute pathology. 7. The EEG revealed a moderate toxic/metabolic encephalopathy. 8. The patient's history, neurological examination, laboratory data, EEG and imaging are most compatible with a severe toxic metabolic encephalopathy, which is multifactorial. The recent cardiac arrest has led to an anoxic/ischemic encephalopathy. Acute intracranial pathology has been excluded. Recommendations 1. Continue present management. 2. Keep the patient off all mind-altering drugs. 3. Correct toxic/metabolic imbalances the best possible. 4. Agree with LP to exclude meningoencephalitic process. 5. Observe closely in ICU setting. Dawit Marshall M.D., M.S.P.H. Dawit Marshall MD Mar 10, 2018 16:28
[2018-03-10] MEDS ORDERED: NS 275ml ONE ×2 (16:40→16:54)
[2018-03-10] MEDS: Dyna-Hex 2% Top Sol 2oz TOPIC SCH (20:44)
--- NOTE | 2018-03-10 22:40 | Cardiology Progress Note ---
Assessment/Plan Assessment/Plan 1. Atrial fibrillation with controlled ventricular response, continue carvedilol , digoxin and cardizem, on Eliquis. Continue amiodarone. 2. 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 3. Severe mitral regurgitation, afterload reduction with hydralazine, preload reduction with furosemide. 4. Acute respiratory failure. Subjective Subjective Atrial fibrillation with controlled ventricular response at rate of 86. Intubated. Objective Last 24 Hour Vital Signs Date Time Temp Pulse Resp B/P (MAP) Pulse Ox O2 Delivery O2 Flow Rate FiO2 03/10/18 21:02 86 19 60 03/10/18 21:00 86 115/64 03/10/18 21:00 90 23 115/64 (81) 93 03/10/18 20:30 94 23 116/86 (96) 93 03/10/18 20:00 Mechanical Ventilator 03/10/18 20:00 95 22 117/78 (91) 93 03/10/18 19:03 83 18 60 03/10/18 19:00 97.6 86 21 124/53 (76) 97 03/10/18 18:30 84 24 123/74 (90) 93 03/10/18 18:00 106/70 03/10/18 18:00 84 106/70 03/10/18 18:00 81 23 106/70 (82) 91 03/10/18 17:30 81 21 108/71 (83) 92 03/10/18 17:30 82 23 60 03/10/18 17:00 114/69 03/10/18 17:00 83 21 114/69 (84) 92 03/10/18 16:30 82 22 96/69 (78) 92 03/10/18 16:00 Mechanical Ventilator 03/10/18 16:00 85 03/10/18 16:00 106/69 03/10/18 16:00 83 22 106/69 (81) 94 03/10/18 15:30 82 23 98/66 (77) 94 03/10/18 15:27 76 23 60 03/10/18 15:00 97/62 03/10/18 15:00 98.5 80 22 97/62 (74) 93 03/10/18 14:30 79 20 99/58 (72) 94 03/10/18 14:00 99/64 03/10/18 14:00 79 20 99/64 (76) 94 03/10/18 13:30 77 20 93/56 (68) 94 03/10/18 13:27 77 20 60 03/10/18 13:00 78 21 90/59 (69) 93 03/10/18 13:00 90/59 03/10/18 12:30 80 20 116/86 (96) 95 03/10/18 12:00 84 21 114/76 (89) 95 03/10/18 12:00 85 03/10/18 12:00 Mechanical Ventilator 03/10/18 12:00 114/75 03/10/18 12:00 96/64 03/10/18 12:00 99/64 03/10/18 11:30 82 20 114/78 (90) 94 03/10/18 11:00 84 21 122/73 (89) 95 03/10/18 11:00 114/78 03/10/18 10:47 86 27 60 03/10/18 10:30 84 20 119/75 (90) 95 03/10/18 10:00 113/74 03/10/18 09:30 84 20 113/73 (86) 96 03/10/18 09:05 83 03/10/18 09:00 106/67 03/10/18 09:00 88 106/67 03/10/18 09:00 84 20 106/67 (80) 95 03/10/18 08:42 93 17 60 03/10/18 08:30 84 18 94/57 (69) 95 03/10/18 08:00 Mechanical Ventilator 03/10/18 08:00 83 20 101/68 (79) 95 03/10/18 08:00 101/68 03/10/18 08:00 88 03/10/18 07:02 85 23 60 03/10/18 07:00 98.5 87 18 112/74 (87) 93 03/10/18 07:00 118/64 03/10/18 06:30 99.5 82 21 103/63 (76) 95 03/10/18 06:00 109/65 03/10/18 06:00 79 22 109/65 (80) 94 03/10/18 05:30 87 22 99/57 (71) 94 03/10/18 05:00 60 03/10/18 05:00 91 22 101/66 (78) 92 03/10/18 05:00 110/66 03/10/18 04:57 89 22 60 03/10/18 04:30 92 21 105/62 (76) 93 03/10/18 04:00 50 03/10/18 04:00 90 03/10/18 04:00 100.7 91 22 104/68 (80) 94 03/10/18 04:00 98/60 03/10/18 04:00 Mechanical Ventilator 03/10/18 03:30 90 25 111/70 (84) 91 03/10/18 03:24 84 25 50 03/10/18 03:00 87 22 118/68 (85) 98 03/10/18 03:00 118/68 03/10/18 02:30 83 23 121/69 (86) 96 03/10/18 02:00 81 21 102/89 (93) 97 03/10/18 02:00 102/89 03/10/18 01:30 81 20 106/63 (77) 97 03/10/18 01:03 76 22 50 03/10/18 01:00 105/72 03/10/18 01:00 80 20 105/72 (83) 97 03/10/18 00:30 79 20 116/66 (83) 97 03/10/18 00:00 40 03/10/18 00:00 98.3 80 19 102/70 (81) 100 03/10/18 00:00 103/64 03/10/18 00:00 74 03/10/18 00:00 Mechanical Ventilator 03/09/18 23:30 80 21 91/66 (74) 96 03/09/18 23:03 77 20 50 03/09/18 23:00 81 22 92/63 (73) 95 03/09/18 23:00 92/63 Intake and Output 03/09/18 03/10/18 19:00 07:00 Intake Total 2453.5 ml 2624.34 ml Output Total 1655 ml 1225 ml Balance 798.5 ml 1399.34 ml Free Water 250 ml 900 ml IV Total 1808.5 ml 1469.34 ml Tube Feeding 105 ml 255 ml Other 290 ml Output Urine Total 1655 ml 1225 ml 2D Echo: LVEF 25%, Bi-atrial enlargement, Severe MR, RVSP 24 mmHg, RAP 15 mmHg Laboratory Tests Test 03/10/18 05:00 03/10/18 08:52 White Blood Count 13.5 K/UL (4.8-10.8) H Red Blood Count 5.64 M/UL (4.70-6.10) Hemoglobin 14.6 G/DL (14.2-18.0) Hematocrit 46.5 % (42.0-52.0) Mean Corpuscular Volume 82 FL (80-99) Mean Corpuscular Hemoglobin 25.9 PG (27.0-31.0) L Mean Corpuscular Hemoglobin Concent 31.5 G/DL (32.0-36.0) L Red Cell Distribution Width 18.0 % (11.6-14.8) H Platelet Count 220 K/UL (150-450) Mean Platelet Volume 8.1 FL (6.5-10.1) Neutrophils (%) (Auto) 83.4 % (45.0-75.0) H Lymphocytes (%) (Auto) 9.2 % (20.0-45.0) L Monocytes (%) (Auto) 5.5 % (1.0-10.0) Eosinophils (%) (Auto) 1.4 % (0.0-3.0) Basophils (%) (Auto) 0.4 % (0.0-2.0) Sodium Level 152 MMOL/L (136-145) H Potassium Level 3.1 MMOL/L (3.5-5.1) L Chloride Level 114 MMOL/L (98-107) H Carbon Dioxide Level 32 MMOL/L (21-32) Anion Gap 6 mmol/L (5-15) Blood Urea Nitrogen 37 mg/dL (7-18) H Creatinine 1.5 MG/DL (0.55-1.30) H Estimat Glomerular Filtration Rate 48.6 mL/min (>60) Glucose Level 261 MG/DL (74-106) H Calcium Level 7.8 MG/DL (8.5-10.1) L Phosphorus Level 2.4 MG/DL (2.5-4.9) L Magnesium Level 2.1 MG/DL (1.8-2.4) Total Bilirubin 3.0 MG/DL (0.2-1.0) H Direct Bilirubin 1.8 MG/DL (0.0-0.3) H Aspartate Amino Transf (AST/SGOT) 24 U/L (15-37) Alanine Aminotransferase (ALT/SGPT) 57 U/L (12-78) Alkaline Phosphatase 164 U/L (46-116) H Total Protein 5.9 G/DL (6.4-8.2) L Albumin 1.6 G/DL (3.4-5.0) L Globulin 4.3 g/dL Albumin/Globulin Ratio 0.4 (1.0-2.7) L Arterial Blood pH 7.533 (7.350-7.450) Arterial Blood Partial Pressure CO2 36.9 mmHg (35.0-45.0) Arterial Blood Partial Pressure O2 69.5 mmHg (75.0-100.0) L Arterial Blood HCO3 30.4 mmol/L (22.0-26.0) H Arterial Blood Oxygen Saturation 94.2 % (95-100) L Arterial Blood Base Excess 7.4 (-2-2) H Janes Test Positive Objective HEENT: Atraumatic and normocephalic. Anicteric. Pupils are equal, round, and reactive to light and accommodation. Extraocular muscles intact. Intubated. NECK: JVP elevated about 5cm. No carotid bruits. Carotid upstrokes 2+ bilaterally. CARDIOVASCULAR: Normal S1, S2. Irregularly irregular rhythm. 2/6 Holosystolic murmur, gallop, or rub. LUNGS: Diminished BS both lungs. ABDOMEN: Soft, nontender, and nondistended. No hepatosplenomegaly. Positive bowel sounds. EXTREMITIES: There is 1+ bilateral lower extremity edema with ulcerations. Sudarshan Stuart MD Mar 10, 2018 22:40
[2018-03-11] VITALS (24 sets, daily range): BP systolic 100–124; BP diastolic 55–83
[2018-03-11] MEDS: HydrALAZINE 25mg tab ORAL SCH ×3 (05:26→17:26)
[2018-03-11] MEDS: dilTIAZem HCl 90mg tab ORAL SCH ×3 (05:26→17:25)
[2018-03-11] MEDS: NovoLOG Insulin Flexpen SUBQ SCH ×3 (05:38→17:36)
[2018-03-11 06:14] LABS: BASOPHILS % (AUTO) 0.3 % (0.0-2.0); EOSINOPHILS % (AUTO) 2.1 % (0.0-3.0); HEMATOCRIT 45.8 % (42.0-52.0); HEMOGLOBIN 14.6 G/DL (14.2-18.0); LYMPHOCYTES % (AUTO) 8.2 % (20.0-45.0); MEAN CORPUSCULAR VOLUME 82 FL (80-99); MONOCYTES % (AUTO) 6.1 % (1.0-10.0); NEUTROPHILS % (AUTO) 83.4 % (45.0-75.0); PLATELET COUNT 225 K/UL (150-450); RED BLOOD COUNT 5.58 M/UL (4.70-6.10); RED CELL DISTRIBUTION WIDTH 17.7 % (11.6-14.8); WHITE BLOOD COUNT 12.9 K/UL (4.8-10.8)
[2018-03-11 06:39] LABS: ALANINE AMINOTRANSFERASE 46 U/L (12-78); ALBUMIN 1.5 G/DL (3.4-5.0); ALBUMIN/GLOBULIN RATIO 0.3 (1.0-2.7); ALKALINE PHOSPHATASE 195 U/L (46-116); ANION GAP 7 mmol/L (5-15); ASPARTATE AMINO TRANSFERASE 28 U/L (15-37); BILIRUBIN,TOTAL 2.6 MG/DL (0.2-1.0); BLOOD UREA NITROGEN 37 mg/dL (7-18); CALCIUM 7.8 MG/DL (8.5-10.1); CARBON DIOXIDE 30 MMOL/L (21-32); CHLORIDE 116 MMOL/L (98-107); CREATININE 1.4 MG/DL (0.55-1.30); PHOSPHORUS 1.9 MG/DL (2.5-4.9); POTASSIUM 3.3 MMOL/L (3.5-5.1); SODIUM 153 MMOL/L (136-145)
[2018-03-11 06:41] LABS: BILIRUBIN,DIRECT 1.6 MG/DL (0.0-0.3)
--- NOTE | 2018-03-11 07:57 | General Progress Note ---
Assessment/Plan Problem List: (1) A-fib ICD Codes: I48.91 - Unspecified atrial fibrillation SNOMED: 13245970 (2) Diabetes ICD Codes: E11.9 - Type 2 diabetes mellitus without complications SNOMED: 05338221 (3) Abnormal LFTs ICD Codes: R94.5 - Abnormal results of liver function studies SNOMED: 819851453 (4) Rapid atrial fibrillation ICD Codes: I48.91 - Unspecified atrial fibrillation SNOMED: 162944874 (5) Drug abuse ICD Codes: F19.10 - Other psychoactive substance abuse, uncomplicated SNOMED: 88919367 Assessment/Plan us reviewed >> Cholelithiasis. Borderline gallbladder wall thickening, could indicate early acute cholecystitis changes. neg hepatitis panel HIDA negative LFTs still elevated, trend ST evaluation noted cont NGTFs, will consider PEG if no patient does not improve. patient now on Eliquis that needs to be held for 48 hours prior to any procedure electrolyte correction prn transfusions ppi fu labs Subjective ROS Limited/Unobtainable: No Allergies: Coded Allergies: No Known Allergies (Unverified , 02/16/18) Objective Last 24 Hour Vital Signs Date Time Temp Pulse Resp B/P (MAP) Pulse Ox O2 Delivery O2 Flow Rate FiO2 03/11/18 07:05 85 18 60 03/11/18 07:00 82 24 102/63 (76) 98 03/11/18 06:00 90 24 102/61 (75) 98 03/11/18 05:26 116/79 03/11/18 05:26 84 116/79 03/11/18 05:00 90 23 100/66 (77) 98 03/11/18 04:48 84 18 60 03/11/18 04:00 Mechanical Ventilator 03/11/18 04:00 89 20 110/62 (78) 95 03/11/18 04:00 80 03/11/18 03:00 91 25 117/76 (90) 95 03/11/18 02:45 80 20 60 03/11/18 02:00 91 25 112/73 (86) 99 03/11/18 01:02 80 20 116/79 (91) 98 03/11/18 00:45 85 19 60 03/11/18 00:00 Mechanical Ventilator 03/11/18 00:00 82 03/11/18 00:00 99.1 83 23 118/74 (89) 96 03/10/18 23:49 120/64 03/10/18 23:49 83 120/64 03/10/18 23:30 83 23 120/64 (82) 96 03/10/18 23:00 82 23 112/75 (87) 95 03/10/18 22:43 88 21 60 03/10/18 22:30 82 26 105/69 (81) 93 03/10/18 22:00 107/81 03/10/18 22:00 85 23 107/81 (90) 93 03/10/18 21:30 87 23 118/77 (91) 93 03/10/18 21:02 86 19 60 03/10/18 21:00 115/64 03/10/18 21:00 86 115/64 03/10/18 21:00 90 23 115/64 (81) 93 03/10/18 20:30 94 23 116/86 (96) 93 03/10/18 20:00 Mechanical Ventilator 03/10/18 20:00 117/78 03/10/18 20:00 90 03/10/18 20:00 95 22 117/78 (91) 93 03/10/18 19:03 83 18 60 03/10/18 19:00 112/72 03/10/18 19:00 97.6 86 21 124/53 (76) 97 03/10/18 18:30 84 24 123/74 (90) 93 03/10/18 18:00 106/70 03/10/18 18:00 84 106/70 03/10/18 18:00 81 23 106/70 (82) 91 03/10/18 17:30 81 21 108/71 (83) 92 03/10/18 17:30 82 23 60 03/10/18 17:00 114/69 03/10/18 17:00 83 21 114/69 (84) 92 03/10/18 16:30 82 22 96/69 (78) 92 03/10/18 16:00 Mechanical Ventilator 03/10/18 16:00 85 03/10/18 16:00 106/69 03/10/18 16:00 83 22 106/69 (81) 94 03/10/18 15:30 82 23 98/66 (77) 94 03/10/18 15:27 76 23 60 03/10/18 15:00 97/62 03/10/18 15:00 98.5 80 22 97/62 (74) 93 03/10/18 14:30 79 20 99/58 (72) 94 03/10/18 14:00 99/64 03/10/18 14:00 79 20 99/64 (76) 94 03/10/18 13:30 77 20 93/56 (68) 94 03/10/18 13:27 77 20 60 03/10/18 13:00 78 21 90/59 (69) 93 03/10/18 13:00 90/59 03/10/18 12:30 80 20 116/86 (96) 95 03/10/18 12:00 84 21 114/76 (89) 95 03/10/18 12:00 85 03/10/18 12:00 Mechanical Ventilator 03/10/18 12:00 114/75 03/10/18 12:00 96/64 03/10/18 12:00 99/64 03/10/18 11:30 82 20 114/78 (90) 94 03/10/18 11:00 84 21 122/73 (89) 95 03/10/18 11:00 114/78 03/10/18 10:47 86 27 60 03/10/18 10:30 84 20 119/75 (90) 95 03/10/18 10:00 113/74 03/10/18 09:30 84 20 113/73 (86) 96 03/10/18 09:05 83 03/10/18 09:00 106/67 03/10/18 09:00 88 106/67 03/10/18 09:00 84 20 106/67 (80) 95 03/10/18 08:42 93 17 60 03/10/18 08:30 84 18 94/57 (69) 95 03/10/18 08:00 Mechanical Ventilator 03/10/18 08:00 83 20 101/68 (79) 95 03/10/18 08:00 101/68 03/10/18 08:00 88 Intake and Output 03/10/18 03/11/18 19:00 07:00 Intake Total 1715.186 ml 1701.888 ml Output Total 1255 ml 1400 ml Balance 460.186 ml 301.888 ml Free Water 900 ml 1000 ml IV Total 515.186 ml 6.888 ml Tube Feeding 300 ml 445 ml Other 250 ml Output Urine Total 1255 ml 1400 ml # Bowel Movements 2 Laboratory Tests 03/10/18 08:52: Arterial Blood pH 7.533H, Arterial Blood Partial Pressure CO2 36.9, Arterial Blood Partial Pressure O2 69.5L, Arterial Blood HCO3 30.4H, Arterial Blood Oxygen Saturation 94.2L, Arterial Blood Base Excess 7.4H, Janes Test Positive 03/11/18 04:00: White Blood Count 12.9H, Red Blood Count 5.58, Hemoglobin 14.6, Hematocrit 45.8 , Mean Corpuscular Volume 82, Mean Corpuscular Hemoglobin 26.1L, Mean Corpuscular Hemoglobin Concent 31.8L, Red Cell Distribution Width 17.7H, Platelet Count 225, Mean Platelet Volume 8.6, Neutrophils (%) (Auto) 83.4H, Lymphocytes (%) (Auto) 8.2L, Monocytes (%) (Auto) 6.1, Eosinophils (%) (Auto) 2.1, Basophils (%) (Auto) 0.3, Sodium Level 153H, Potassium Level 3.3L, Chloride Level 116H, Carbon Dioxide Level 30, Anion Gap 7, Blood Urea Nitrogen 37H, Creatinine 1.4H, Estimat Glomerular Filtration Rate 52.6, Glucose Level 195H, Calcium Level 7.8L, Phosphorus Level 1.9L, Magnesium Level 2.1, Total Bilirubin 2.6H, Direct Bilirubin 1.6H, Aspartate Amino Transf (AST/SGOT) 28, Alanine Aminotransferase (ALT/SGPT) 46, Alkaline Phosphatase 195H, Total Protein 6.0L, Albumin 1.5L, Globulin 4.5, Albumin/Globulin Ratio 0.3L Height (Feet): 6 Height (Inches): 0.00 Weight (Pounds): 270 General Appearance: lethargic EENT: normal ENT inspection Neck: supple Cardiovascular: normal rate Respiratory/Chest: decreased breath sounds Abdomen: normal bowel sounds, non tender, soft Extremities: non-tender Khalif Noe MD Mar 11, 2018 07:57
[2018-03-11] MEDS: Digoxin 0.5mg/2ml Inj IVP SCH (08:17)
[2018-03-11] MEDS: Eliquis 2.5mg tablet ORAL SCH ×2 (08:17→20:37)
[2018-03-11] MEDS: Pantoprazole Inj IV SCH (08:17)
[2018-03-11] MEDS: Furosemide 40mg tab ORAL SCH (08:18)
[2018-03-11] MEDS: Carvedilol 25mg Tab ORAL SCH ×2 (08:18→20:37)
--- NOTE | 2018-03-11 08:47 | Diagnostic Imaging Report ---
PORTABLE AP CXR: HISTORY: 57-year-old male with dyspnea. COMPARISON: Multiple prior portable CXRs, the most recent 03/10/2018, 03/08/2018, 03/06/2018. FINDINGS: There is persistent ill-defined confluent opacity in the infrahilar right lung base, partially obscuring the right hemidiaphragm, but not obscuring the right heart border. There is persistent mild reticular and groundglass opacity within the left lung base. No definite evidence of diffuse pulmonary edema. Heart size is grossly within normal limits and stable. No obvious pneumothorax; there is minimal blunting of the right lateral costophrenic sulcus. Endotracheal tube is in stable and satisfactory position. IMPRESSION: 1. Ill-defined semisolid confluent opacity in the infrahilar right lower lung, suggesting atelectasis, pneumonia, +/- effusion. 2. Persistent minimal left basilar lung opacity, likely at least partially secondary to subsegmental atelectasis.
--- NOTE | 2018-03-11 09:01 | General Progress Note ---
Assessment/Plan Problem List: (1) Diabetes ICD Codes: E11.9 - Type 2 diabetes mellitus without complications SNOMED: 28668712 (2) Cellulitis ICD Codes: L03.90 - Cellulitis, unspecified SNOMED: 378236055 (3) Acute renal failure ICD Codes: N17.9 - Acute kidney failure, unspecified SNOMED: 19745054 (4) Rapid atrial fibrillation ICD Codes: I48.91 - Unspecified atrial fibrillation SNOMED: 601440304 Status: unchanged Assessment/Plan vent cardio f/u abx cbc bmp am Subjective Constitutional: Reports: weakness Allergies: Coded Allergies: No Known Allergies (Unverified , 02/16/18) All Systems: reviewed and negative except above Subjective intub sedated ng in icu Objective Last 24 Hour Vital Signs Date Time Temp Pulse Resp B/P (MAP) Pulse Ox O2 Delivery O2 Flow Rate FiO2 03/11/18 08:18 85 102/63 03/11/18 08:17 89 03/11/18 08:00 60 03/11/18 08:00 Mechanical Ventilator 03/11/18 08:00 98.4 87 23 111/67 (82) 96 03/11/18 07:05 85 18 60 03/11/18 07:00 82 24 102/63 (76) 98 03/11/18 06:00 90 24 102/61 (75) 98 03/11/18 05:26 116/79 03/11/18 05:26 84 116/79 03/11/18 05:00 90 23 100/66 (77) 98 03/11/18 04:48 84 18 60 03/11/18 04:00 Mechanical Ventilator 03/11/18 04:00 89 20 110/62 (78) 95 03/11/18 04:00 80 03/11/18 03:00 91 25 117/76 (90) 95 03/11/18 02:45 80 20 60 03/11/18 02:00 91 25 112/73 (86) 99 03/11/18 01:02 80 20 116/79 (91) 98 03/11/18 00:45 85 19 60 03/11/18 00:00 Mechanical Ventilator 03/11/18 00:00 82 03/11/18 00:00 99.1 83 23 118/74 (89) 96 03/10/18 23:49 120/64 03/10/18 23:49 83 120/64 03/10/18 23:30 83 23 120/64 (82) 96 03/10/18 23:00 82 23 112/75 (87) 95 03/10/18 22:43 88 21 60 03/10/18 22:30 82 26 105/69 (81) 93 03/10/18 22:00 107/81 03/10/18 22:00 85 23 107/81 (90) 93 03/10/18 21:30 87 23 118/77 (91) 93 03/10/18 21:02 86 19 60 03/10/18 21:00 115/64 03/10/18 21:00 86 115/64 03/10/18 21:00 90 23 115/64 (81) 93 03/10/18 20:30 94 23 116/86 (96) 93 03/10/18 20:00 Mechanical Ventilator 03/10/18 20:00 117/78 03/10/18 20:00 90 03/10/18 20:00 95 22 117/78 (91) 93 03/10/18 19:03 83 18 60 03/10/18 19:00 112/72 03/10/18 19:00 97.6 86 21 124/53 (76) 97 03/10/18 18:30 84 24 123/74 (90) 93 03/10/18 18:00 106/70 03/10/18 18:00 84 106/70 03/10/18 18:00 81 23 106/70 (82) 91 03/10/18 17:30 81 21 108/71 (83) 92 03/10/18 17:30 82 23 60 03/10/18 17:00 114/69 03/10/18 17:00 83 21 114/69 (84) 92 03/10/18 16:30 82 22 96/69 (78) 92 03/10/18 16:00 Mechanical Ventilator 03/10/18 16:00 85 03/10/18 16:00 106/69 03/10/18 16:00 83 22 106/69 (81) 94 03/10/18 15:30 82 23 98/66 (77) 94 03/10/18 15:27 76 23 60 03/10/18 15:00 97/62 12/8/18 15:00 98.5 80 22 97/62 (74) 93 03/10/18 14:30 79 20 99/58 (72) 94 03/10/18 14:00 99/64 03/10/18 14:00 79 20 99/64 (76) 94 03/10/18 13:30 77 20 93/56 (68) 94 03/10/18 13:27 77 20 60 03/10/18 13:00 78 21 90/59 (69) 93 03/10/18 13:00 90/59 03/10/18 12:30 80 20 116/86 (96) 95 03/10/18 12:00 84 21 114/76 (89) 95 03/10/18 12:00 85 03/10/18 12:00 Mechanical Ventilator 03/10/18 12:00 114/75 03/10/18 12:00 96/64 03/10/18 12:00 99/64 03/10/18 11:30 82 20 114/78 (90) 94 03/10/18 11:00 84 21 122/73 (89) 95 03/10/18 11:00 114/78 03/10/18 10:47 86 27 60 03/10/18 10:30 84 20 119/75 (90) 95 03/10/18 10:00 113/74 03/10/18 09:30 84 20 113/73 (86) 96 03/10/18 09:05 83 Intake and Output 03/10/18 03/11/18 19:00 07:00 Intake Total 1715.186 ml 1701.888 ml Output Total 1255 ml 1400 ml Balance 460.186 ml 301.888 ml Free Water 900 ml 1000 ml IV Total 515.186 ml 6.888 ml Tube Feeding 300 ml 445 ml Other 250 ml Output Urine Total 1255 ml 1400 ml # Bowel Movements 2 Laboratory Tests 03/11/18 04:00: White Blood Count 12.9H, Red Blood Count 5.58, Hemoglobin 14.6, Hematocrit 45.8 , Mean Corpuscular Volume 82, Mean Corpuscular Hemoglobin 26.1L, Mean Corpuscular Hemoglobin Concent 31.8L, Red Cell Distribution Width 17.7H, Platelet Count 225, Mean Platelet Volume 8.6, Neutrophils (%) (Auto) 83.4H, Lymphocytes (%) (Auto) 8.2L, Monocytes (%) (Auto) 6.1, Eosinophils (%) (Auto) 2.1, Basophils (%) (Auto) 0.3, Sodium Level 153H, Potassium Level 3.3L, Chloride Level 116H, Carbon Dioxide Level 30, Anion Gap 7, Blood Urea Nitrogen 37H, Creatinine 1.4H, Estimat Glomerular Filtration Rate 52.6, Glucose Level 195H, Calcium Level 7.8L, Phosphorus Level 1.9L, Magnesium Level 2.1, Total Bilirubin 2.6H, Direct Bilirubin 1.6H, Aspartate Amino Transf (AST/SGOT) 28, Alanine Aminotransferase (ALT/SGPT) 46, Alkaline Phosphatase 195H, Total Protein 6.0L, Albumin 1.5L, Globulin 4.5, Albumin/Globulin Ratio 0.3L 03/11/18 08:02: Arterial Blood pH 7.530H, Arterial Blood Partial Pressure CO2 34.1L, Arterial Blood Partial Pressure O2 67.9L, Arterial Blood HCO3 28.1H, Arterial Blood Oxygen Saturation 94.1L, Arterial Blood Base Excess 5.7H, Janes Test Positive Height (Feet): 6 Height (Inches): 0.00 Weight (Pounds): 270 General Appearance: lethargic EENT: normal ENT inspection Neck: normal alignment Cardiovascular: normal peripheral pulses, normal rate, regular rhythm Respiratory/Chest: chest wall non-tender, decreased breath sounds Abdomen: normal bowel sounds, non tender, soft Extremities: normal inspection Edema: no edema noted Arm (L), no edema noted Arm (R), no edema noted Leg (L), no edema noted Leg (R), no edema noted Pedal (L), no edema noted Pedal (R), no edema noted Generalized Neurologic: motor weakness Skin: normal pigmentation, warm/dry Mick Garcia DO Mar 11, 2018 09:01
[2018-03-11] MEDS ORDERED: Sodium Phosphate 30 MM in NS 275 ML IVPB ONE (10:00)
[2018-03-11] MEDS: Vancomycin 750mg/NS 250ml 250 ML IVPB SCH (10:21)
[2018-03-11] MEDS ORDERED: Potassium Phosphate 30 MM in NS 275 ML IV SCH (11:00)
[2018-03-11] MEDS: Ertapenem 1 GM in NS 55 ML IVPB SCH (11:32)
--- NOTE | 2018-03-11 14:06 | Neurology Progress Note ---
Interim History Interim History Interim History Mr. Cornejo looks about the same as yesterday. He is intubated, artificially ventilated and in the ICU. He is poorly responsive, he cannot be aroused, on deep pain he does wince on upper extremity stimulation but not lower extremity stimulation. There has been no improvement in his mental state or other neurologic dysfunction. Review of Systems Neuro Review of Systems Unable to obtain. Objective Physical Exam Last Vital Signs Date Time Temp Pulse Resp B/P (MAP) Pulse Ox O2 Delivery O2 Flow Rate FiO2 03/11/18 13:00 88 24 110/60 (77) 100 03/11/18 12:54 60 03/11/18 12:00 98.5 03/11/18 12:00 Mechanical Ventilator 03/08/18 20:00 15.0 Laboratory Tests Test 03/11/18 04:00 03/11/18 08:02 White Blood Count 12.9 K/UL (4.8-10.8) H Red Blood Count 5.58 M/UL (4.70-6.10) Hemoglobin 14.6 G/DL (14.2-18.0) Hematocrit 45.8 % (42.0-52.0) Mean Corpuscular Volume 82 FL (80-99) Mean Corpuscular Hemoglobin 26.1 PG (27.0-31.0) L Mean Corpuscular Hemoglobin Concent 31.8 G/DL (32.0-36.0) L Red Cell Distribution Width 17.7 % (11.6-14.8) H Platelet Count 225 K/UL (150-450) Mean Platelet Volume 8.6 FL (6.5-10.1) Neutrophils (%) (Auto) 83.4 % (45.0-75.0) H Lymphocytes (%) (Auto) 8.2 % (20.0-45.0) L Monocytes (%) (Auto) 6.1 % (1.0-10.0) Eosinophils (%) (Auto) 2.1 % (0.0-3.0) Basophils (%) (Auto) 0.3 % (0.0-2.0) Sodium Level 153 MMOL/L (136-145) H Potassium Level 3.3 MMOL/L (3.5-5.1) L Chloride Level 116 MMOL/L (98-107) H Carbon Dioxide Level 30 MMOL/L (21-32) Anion Gap 7 mmol/L (5-15) Blood Urea Nitrogen 37 mg/dL (7-18) H Creatinine 1.4 MG/DL (0.55-1.30) H Estimat Glomerular Filtration Rate 52.6 mL/min (>60) Glucose Level 195 MG/DL (74-106) H Calcium Level 7.8 MG/DL (8.5-10.1) L Phosphorus Level 1.9 MG/DL (2.5-4.9) L Magnesium Level 2.1 MG/DL (1.8-2.4) Total Bilirubin 2.6 MG/DL (0.2-1.0) H Direct Bilirubin 1.6 MG/DL (0.0-0.3) H Aspartate Amino Transf (AST/SGOT) 28 U/L (15-37) Alanine Aminotransferase (ALT/SGPT) 46 U/L (12-78) Alkaline Phosphatase 195 U/L (46-116) H Total Protein 6.0 G/DL (6.4-8.2) L Albumin 1.5 G/DL (3.4-5.0) L Globulin 4.5 g/dL Albumin/Globulin Ratio 0.3 (1.0-2.7) L Arterial Blood pH 7.530 (7.350-7.450) Arterial Blood Partial Pressure CO2 34.1 mmHg (35.0-45.0) L Arterial Blood Partial Pressure O2 67.9 mmHg (75.0-100.0) L Arterial Blood HCO3 28.1 mmol/L (22.0-26.0) H Arterial Blood Oxygen Saturation 94.1 % (95-100) L Arterial Blood Base Excess 5.7 (-2-2) H Janes Test Positive Neurologic Exam Objective PHYSICAL EXAMINATION: GENERAL: He is a well developed, well nourished, gentleman, lying in an ICU bed, connected to a ventilator via an priti-tracheal tube. HEAD: Normocephalic and atraumatic. EENT: Examination benign. NECK: No neck rigidity was observed. NEUROLOGIC EXAMINATION: MENTAL STATUS EXAMINATION: He could not be aroused even on deep painful stimuli. He did wince on deep pain in the UEs only. Further mental status testing was impossible. SPEECH: Could not be tested. LANGUAGE: Could not be tested. CRANIAL NERVE EXAMINATION: II: He did not blink to threat. III, IV & : The external ocular movements were present on oculocephalic maneuvers - but restricted. The pupils were 3 mm in diameter and did not react to light. V & VII: The corneal reflexes were subdued but equal. VIII: He did not respond to sounds and had no nystagmus. IX & X: The gag reflex was absent. XI: The sternocleidomastoids and trapezii did not function. XII: The tongue could not be tested adequately. MOTOR SYSTEM: The tone was normal in all 4 extremities. Examination of muscle mass revealed no focal wasting. 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 Examination of power was impossible to perform because even on applying deep painful stimuli no movements were seen. SENSORY EXAMINATION: He only responded to deep painful stimuli with wincing in the UEs. REFLEXES: 0 at the biceps, triceps, brachioradialis, knees, and ankles. The right plantar response could not be tested as he had no toes, and the left plantar response was mute. COORDINATION, STANCE & GAIT: Could not be tested. Impression/Recommendations Diagnostic Impression 1. Mr. Dustin Cornejo is a 57-year-old, gentleman, of unknown handedness, who was hospitalized for right lower extremity cellulitis and then in the hospital deteriorated to a point where became quite altered with regards to his mental state on 03/05/2018 and was transferred to the ICU. He was noted to have atrial fibrillation with a rapid ventricular rate and shortness of breath related to hypoxic respiratory failure and then became agitated as a result of which he was given multiple doses of Ativan, Haldol, and morphine. 2. He looks about the same as yesterday. He is intubated, artificially ventilated and in the ICU. He is in a deep coma and cannot be aroused. He does however wince on applying deep painful stimuli to his upper extremities. There has been no improvement in his mental state or other neurologic dysfunction. 3. On neurological examination, at this time, he is in a deep coma. He has no signs of cortical function. He does have brainstem function in the form of restricted eye movements on oculocephalic maneuvers and corneal reflexes that are diminished but equal. He has globally absent deep tendon reflexes, and plantar response on the left side is mute. 4. His latest laboratory data on my initial evaluation revealed his WBC count was elevated to 13,400. He had his last ESR on 03/02/2018 and it was 7. His blood gases revealed that he had a pH of 7.48, pCO2 of 35, and pO2 of 51. His latest chemistry panel revealed that his sodium was elevated to 155. His chloride was elevated to 118. His BUN was elevated to 41. His creatinine was elevated to 1.3. His glucose was elevated to 208. His total bilirubin was elevated at 2.8. His AST, ALT, and alkaline phosphatase were all elevated. His albumin was low at 2.2. His urine toxicology screen on admission revealed that tetrahydrocannabinols were present. His serologies were negative for HIV. 5. Further laboratory tests revealed a normal B12, Folate, TSH but the Hb A1C was elevated at 9.2%. 6. The CT of the brain done on 03/07/18 revealed atrophy and deep white matter disease but no acute pathology. 7. The EEG revealed a moderate toxic/metabolic encephalopathy. 8. The patient's history, neurological examination, laboratory data, EEG and imaging are most compatible with a severe toxic metabolic encephalopathy, which is multifactorial. The recent cardiac arrest has led to an anoxic/ischemic encephalopathy. Acute intracranial pathology has been excluded. Recommendations 1. Continue present management. 2. Keep the patient off all mind-altering drugs. 3. Correct toxic/metabolic imbalances the best possible. 4. Agree with LP to exclude meningoencephalitic process. 5. Observe closely in ICU setting. Dawit Marshall M.D., M.S.P.H. Dawit Marshall MD Mar 11, 2018 14:06
--- NOTE | 2018-03-11 15:08 | General Surgery Progress Note ---
General Surgery-Progress Note Subjective Additional Comments intubated on vent. sedated. comfortable. leukocytosis improving. wounds improving Objective Last 24 Hour Vital Signs Date Time Temp Pulse Resp B/P (MAP) Pulse Ox O2 Delivery O2 Flow Rate FiO2 03/11/18 14:32 88 23 60 03/11/18 14:00 85 22 104/56 (72) 100 03/11/18 13:00 88 24 110/60 (77) 100 03/11/18 12:54 81 24 60 03/11/18 12:00 98.5 85 22 109/58 (75) 99 03/11/18 12:00 88 03/11/18 12:00 Mechanical Ventilator 03/11/18 11:24 85 105/60 03/11/18 11:23 105/60 03/11/18 11:00 85 24 105/60 (75) 99 03/11/18 10:32 85 20 60 03/11/18 10:00 87 24 115/62 (79) 98 03/11/18 09:38 60 03/11/18 09:00 88 24 108/60 (76) 98 03/11/18 08:42 88 22 60 03/11/18 08:18 85 102/63 03/11/18 08:17 89 03/11/18 08:00 60 03/11/18 08:00 Mechanical Ventilator 03/11/18 08:00 98.4 87 23 111/67 (82) 96 03/11/18 08:00 90 03/11/18 07:05 85 18 60 03/11/18 07:00 82 24 102/63 (76) 98 03/11/18 06:00 90 24 102/61 (75) 98 03/11/18 05:26 116/79 03/11/18 05:26 84 116/79 03/11/18 05:00 90 23 100/66 (77) 98 03/11/18 04:48 84 18 60 03/11/18 04:00 Mechanical Ventilator 03/11/18 04:00 89 20 110/62 (78) 95 03/11/18 04:00 80 03/11/18 03:00 91 25 117/76 (90) 95 03/11/18 02:45 80 20 60 03/11/18 02:00 91 25 112/73 (86) 99 03/11/18 01:02 80 20 116/79 (91) 98 03/11/18 00:45 85 19 60 03/11/18 00:00 Mechanical Ventilator 03/11/18 00:00 82 03/11/18 00:00 99.1 83 23 118/74 (89) 96 03/10/18 23:49 120/64 03/10/18 23:49 83 120/64 03/10/18 23:30 83 23 120/64 (82) 96 03/10/18 23:00 82 23 112/75 (87) 95 03/10/18 22:43 88 21 60 03/10/18 22:30 82 26 105/69 (81) 93 03/10/18 22:00 107/81 03/10/18 22:00 85 23 107/81 (90) 93 03/10/18 21:30 87 23 118/77 (91) 93 03/10/18 21:02 86 19 60 03/10/18 21:00 115/64 03/10/18 21:00 86 115/64 03/10/18 21:00 90 23 115/64 (81) 93 03/10/18 20:30 94 23 116/86 (96) 93 03/10/18 20:00 Mechanical Ventilator 03/10/18 20:00 117/78 03/10/18 20:00 90 03/10/18 20:00 95 22 117/78 (91) 93 03/10/18 19:03 83 18 60 03/10/18 19:00 112/72 03/10/18 19:00 97.6 86 21 124/53 (76) 97 03/10/18 18:30 84 24 123/74 (90) 93 03/10/18 18:00 106/70 03/10/18 18:00 84 106/70 03/10/18 18:00 81 23 106/70 (82) 91 03/10/18 17:30 81 21 108/71 (83) 92 03/10/18 17:30 82 23 60 03/10/18 17:00 114/69 03/10/18 17:00 83 21 114/69 (84) 92 03/10/18 16:30 82 22 96/69 (78) 92 03/10/18 16:00 Mechanical Ventilator 03/10/18 16:00 85 03/10/18 16:00 106/69 03/10/18 16:00 83 22 106/69 (81) 94 03/10/18 15:30 82 23 98/66 (77) 94 03/10/18 15:27 76 23 60 I&O Intake and Output 03/10/18 03/11/18 18:59 06:59 Intake Total 1712.890 ml 1439.184 ml Output Total 1205 ml 1500 ml Balance 507.890 ml -60.816 ml Free Water 900 ml 750 ml IV Total 512.890 ml 9.184 ml Tube Feeding 300 ml 430 ml Other 250 ml Output Urine Total 1205 ml 1500 ml # Bowel Movements 2 Wound: clean, dry, intact Drains: other Cardiovascular: RSR Respiratory: clear Abdomen: soft, flat, present bowel sounds Extremities: other Laboratory Tests Test 03/11/18 04:00 03/11/18 08:02 White Blood Count 12.9 K/UL (4.8-10.8) H Red Blood Count 5.58 M/UL (4.70-6.10) Hemoglobin 14.6 G/DL (14.2-18.0) Hematocrit 45.8 % (42.0-52.0) Mean Corpuscular Volume 82 FL (80-99) Mean Corpuscular Hemoglobin 26.1 PG (27.0-31.0) L Mean Corpuscular Hemoglobin Concent 31.8 G/DL (32.0-36.0) L Red Cell Distribution Width 17.7 % (11.6-14.8) H Platelet Count 225 K/UL (150-450) Mean Platelet Volume 8.6 FL (6.5-10.1) Neutrophils (%) (Auto) 83.4 % (45.0-75.0) H Lymphocytes (%) (Auto) 8.2 % (20.0-45.0) L Monocytes (%) (Auto) 6.1 % (1.0-10.0) Eosinophils (%) (Auto) 2.1 % (0.0-3.0) Basophils (%) (Auto) 0.3 % (0.0-2.0) Sodium Level 153 MMOL/L (136-145) H Potassium Level 3.3 MMOL/L (3.5-5.1) L Chloride Level 116 MMOL/L (98-107) H Carbon Dioxide Level 30 MMOL/L (21-32) Anion Gap 7 mmol/L (5-15) Blood Urea Nitrogen 37 mg/dL (7-18) H Creatinine 1.4 MG/DL (0.55-1.30) H Estimat Glomerular Filtration Rate 52.6 mL/min (>60) Glucose Level 195 MG/DL (74-106) H Calcium Level 7.8 MG/DL (8.5-10.1) L Phosphorus Level 1.9 MG/DL (2.5-4.9) L Magnesium Level 2.1 MG/DL (1.8-2.4) Total Bilirubin 2.6 MG/DL (0.2-1.0) H Direct Bilirubin 1.6 MG/DL (0.0-0.3) H Aspartate Amino Transf (AST/SGOT) 28 U/L (15-37) Alanine Aminotransferase (ALT/SGPT) 46 U/L (12-78) Alkaline Phosphatase 195 U/L (46-116) H Total Protein 6.0 G/DL (6.4-8.2) L Albumin 1.5 G/DL (3.4-5.0) L Globulin 4.5 g/dL Albumin/Globulin Ratio 0.3 (1.0-2.7) L Arterial Blood pH 7.530 (7.350-7.450) Arterial Blood Partial Pressure CO2 34.1 mmHg (35.0-45.0) L Arterial Blood Partial Pressure O2 67.9 mmHg (75.0-100.0) L Arterial Blood HCO3 28.1 mmol/L (22.0-26.0) H Arterial Blood Oxygen Saturation 94.1 % (95-100) L Arterial Blood Base Excess 5.7 (-2-2) H Janes Test Positive Plan Problems: (1) Abnormal LFTs Assessment & Plan: will obtain hepatitis panel US abdomen - Cholelithiasis; Borderline gallbladder wall thickening, could indicate early acute cholecystitis changes. Consider hepatobiliary nuclear scan if there is high clinical suspicion Negative for dilated ducts will monitor clinically for now HIDA noted hep panel negative hiv neg LFTs noted / improving no surgical intervention necessary at this time. -unlikely cholecystitis. likely contracted GB trend labs (2) Cellulitis Assessment & Plan: chronic bilateral lower extremity wounds / ulcers acute on chronic cellulitis no abscess noted serous drainage multiple wounds that seem traumatic like cuts some small ulcers see wound photos for details -IV Abx as per ID -Keep legs elevated -apply skin protectant, hydrogel, non adherent dressings, and wrap ICU care and management Garth Cornelius Mar 11, 2018 15:08
--- NOTE | 2018-03-11 16:28 | Nephrology Progress Note ---
Assessment/Plan Assessment 1.hypernatremia 2.ZHAO 3.ckd 4.respiratory failure 5.CHF Plan free water via NG hold lasix monitoring renal function avoid NSAID replace electrolyte as need it Subjective ROS Limited/Unobtainable: Yes Subjective continue to be in ICU off pressor good urine out put unresponsive Objective Objective Last 24 Hour Vital Signs Date Time Temp Pulse Resp B/P (MAP) Pulse Ox O2 Delivery O2 Flow Rate FiO2 03/11/18 16:00 78 03/11/18 16:00 98.7 85 22 109/55 (73) 99 03/11/18 16:00 Mechanical Ventilator 03/11/18 15:00 80 20 116/60 (78) 100 03/11/18 14:32 88 23 60 03/11/18 14:00 85 22 104/56 (72) 100 03/11/18 13:00 88 24 110/60 (77) 100 03/11/18 12:54 81 24 60 03/11/18 12:00 98.5 85 22 109/58 (75) 99 03/11/18 12:00 88 03/11/18 12:00 Mechanical Ventilator 03/11/18 11:24 85 105/60 03/11/18 11:23 105/60 03/11/18 11:00 85 24 105/60 (75) 99 03/11/18 10:32 85 20 60 03/11/18 10:00 87 24 115/62 (79) 98 03/11/18 09:38 60 03/11/18 09:00 88 24 108/60 (76) 98 03/11/18 08:42 88 22 60 03/11/18 08:18 85 102/63 03/11/18 08:17 89 03/11/18 08:00 60 03/11/18 08:00 Mechanical Ventilator 03/11/18 08:00 98.4 87 23 111/67 (82) 96 03/11/18 08:00 90 03/11/18 07:05 85 18 60 03/11/18 07:00 82 24 102/63 (76) 98 03/11/18 06:00 90 24 102/61 (75) 98 03/11/18 05:26 116/79 03/11/18 05:26 84 116/79 03/11/18 05:00 90 23 100/66 (77) 98 03/11/18 04:48 84 18 60 03/11/18 04:00 Mechanical Ventilator 03/11/18 04:00 89 20 110/62 (78) 95 03/11/18 04:00 80 03/11/18 03:00 91 25 117/76 (90) 95 03/11/18 02:45 80 20 60 03/11/18 02:00 91 25 112/73 (86) 99 03/11/18 01:02 80 20 116/79 (91) 98 03/11/18 00:45 85 19 60 03/11/18 00:00 Mechanical Ventilator 03/11/18 00:00 82 03/11/18 00:00 99.1 83 23 118/74 (89) 96 03/10/18 23:49 120/64 03/10/18 23:49 83 120/64 03/10/18 23:30 83 23 120/64 (82) 96 03/10/18 23:00 82 23 112/75 (87) 95 03/10/18 22:43 88 21 60 03/10/18 22:30 82 26 105/69 (81) 93 03/10/18 22:00 107/81 03/10/18 22:00 85 23 107/81 (90) 93 03/10/18 21:30 87 23 118/77 (91) 93 03/10/18 21:02 86 19 60 03/10/18 21:00 115/64 03/10/18 21:00 86 115/64 03/10/18 21:00 90 23 115/64 (81) 93 03/10/18 20:30 94 23 116/86 (96) 93 03/10/18 20:00 Mechanical Ventilator 03/10/18 20:00 117/78 03/10/18 20:00 90 03/10/18 20:00 95 22 117/78 (91) 93 03/10/18 19:03 83 18 60 03/10/18 19:00 112/72 03/10/18 19:00 97.6 86 21 124/53 (76) 97 03/10/18 18:30 84 24 123/74 (90) 93 03/10/18 18:00 106/70 03/10/18 18:00 84 106/70 03/10/18 18:00 81 23 106/70 (82) 91 03/10/18 17:30 81 21 108/71 (83) 92 03/10/18 17:30 82 23 60 03/10/18 17:00 114/69 03/10/18 17:00 83 21 114/69 (84) 92 03/10/18 16:30 82 22 96/69 (78) 92 Intake and Output 03/10/18 03/11/18 18:59 06:59 Intake Total 1712.890 ml 1439.184 ml Output Total 1205 ml 1500 ml Balance 507.890 ml -60.816 ml Free Water 900 ml 750 ml IV Total 512.890 ml 9.184 ml Tube Feeding 300 ml 430 ml Other 250 ml Output Urine Total 1205 ml 1500 ml # Bowel Movements 2 Laboratory Tests 03/11/18 04:00: White Blood Count 12.9H, Red Blood Count 5.58, Hemoglobin 14.6, Hematocrit 45.8 , Mean Corpuscular Volume 82, Mean Corpuscular Hemoglobin 26.1L, Mean Corpuscular Hemoglobin Concent 31.8L, Red Cell Distribution Width 17.7H, Platelet Count 225, Mean Platelet Volume 8.6, Neutrophils (%) (Auto) 83.4H, Lymphocytes (%) (Auto) 8.2L, Monocytes (%) (Auto) 6.1, Eosinophils (%) (Auto) 2.1, Basophils (%) (Auto) 0.3, Sodium Level 153H, Potassium Level 3.3L, Chloride Level 116H, Carbon Dioxide Level 30, Anion Gap 7, Blood Urea Nitrogen 37H, Creatinine 1.4H, Estimat Glomerular Filtration Rate 52.6, Glucose Level 195H, Calcium Level 7.8L, Phosphorus Level 1.9L, Magnesium Level 2.1, Total Bilirubin 2.6H, Direct Bilirubin 1.6H, Aspartate Amino Transf (AST/SGOT) 28, Alanine Aminotransferase (ALT/SGPT) 46, Alkaline Phosphatase 195H, Total Protein 6.0L, Albumin 1.5L, Globulin 4.5, Albumin/Globulin Ratio 0.3L 03/11/18 08:02: Arterial Blood pH 7.530H, Arterial Blood Partial Pressure CO2 34.1L, Arterial Blood Partial Pressure O2 67.9L, Arterial Blood HCO3 28.1H, Arterial Blood Oxygen Saturation 94.1L, Arterial Blood Base Excess 5.7H, Janes Test Positive Height (Feet): 6 Height (Inches): 0.00 Weight (Pounds): 270 Objective HEENT: Atraumatic and normocephalic. Anicteric. Pupils are equal, round, and reactive to light and accommodation. Extraocular muscles intact. Altered. NECK: JVP elevated about 5cm. No carotid bruits. Carotid upstrokes 2+ bilaterally. CARDIOVASCULAR: Normal S1, S2. Irregularly irregular rhythm. 2/6 Holosystolic murmur, gallop, or rub. LUNGS: Diminished BS both lungs. ABDOMEN: Soft, nontender, and nondistended. No hepatosplenomegaly. Positive bowel sounds. EXTREMITIES: There is 1+ bilateral lower extremity edema with ulcerations. Maryana Collier MD Mar 11, 2018 16:28
--- NOTE | 2018-03-11 19:47 | Cardiology Progress Note ---
Assessment/Plan Assessment/Plan 1. Atrial fibrillation with controlled ventricular response, continue carvedilol , digoxin and cardizem, on Eliquis. Continue amiodarone. 2. Acute on chronic systolic and diastolic heart failure with LVEF at 25% with severe mitral regurgitation, continue carvedilol, digoxin and hydralazine, off diuretics. 3. Severe mitral regurgitation, afterload reduction with hydralazine, preload reduction with furosemide. 4. Acute respiratory failure. Subjective Subjective Atrial fibrillation with controlled ventricular response at rate of 89. Intubated. Objective Last 24 Hour Vital Signs Date Time Temp Pulse Resp B/P (MAP) Pulse Ox O2 Delivery O2 Flow Rate FiO2 03/11/18 19:23 89 21 60 03/11/18 19:00 84 21 115/57 (76) 100 03/11/18 18:00 84 20 120/78 (92) 100 03/11/18 17:26 105/66 03/11/18 17:25 87 105/66 03/11/18 17:10 87 22 60 03/11/18 17:00 77 20 105/66 (79) 99 03/11/18 16:00 78 03/11/18 16:00 98.7 85 22 109/55 (73) 99 03/11/18 16:00 Mechanical Ventilator 03/11/18 15:00 80 20 116/60 (78) 100 03/11/18 14:32 88 23 60 03/11/18 14:00 85 22 104/56 (72) 100 03/11/18 13:00 88 24 110/60 (77) 100 03/11/18 12:54 81 24 60 03/11/18 12:00 98.5 85 22 109/58 (75) 99 03/11/18 12:00 88 03/11/18 12:00 Mechanical Ventilator 03/11/18 11:24 85 105/60 03/11/18 11:23 105/60 03/11/18 11:00 85 24 105/60 (75) 99 03/11/18 10:32 85 20 60 03/11/18 10:00 87 24 115/62 (79) 98 03/11/18 09:38 60 03/11/18 09:00 88 24 108/60 (76) 98 03/11/18 08:42 88 22 60 03/11/18 08:18 85 102/63 03/11/18 08:17 89 03/11/18 08:00 60 03/11/18 08:00 Mechanical Ventilator 03/11/18 08:00 98.4 87 23 111/67 (82) 96 03/11/18 08:00 90 03/11/18 07:05 85 18 60 03/11/18 07:00 82 24 102/63 (76) 98 03/11/18 06:00 90 24 102/61 (75) 98 03/11/18 05:26 116/79 03/11/18 05:26 84 116/79 03/11/18 05:00 90 23 100/66 (77) 98 03/11/18 04:48 84 18 60 03/11/18 04:00 Mechanical Ventilator 03/11/18 04:00 89 20 110/62 (78) 95 03/11/18 04:00 80 03/11/18 03:00 91 25 117/76 (90) 95 03/11/18 02:45 80 20 60 03/11/18 02:00 91 25 112/73 (86) 99 03/11/18 01:02 80 20 116/79 (91) 98 03/11/18 00:45 85 19 60 03/11/18 00:00 Mechanical Ventilator 03/11/18 00:00 82 03/11/18 00:00 99.1 83 23 118/74 (89) 96 03/10/18 23:49 120/64 03/10/18 23:49 83 120/64 03/10/18 23:30 83 23 120/64 (82) 96 03/10/18 23:00 82 23 112/75 (87) 95 03/10/18 22:43 88 21 60 03/10/18 22:30 82 26 105/69 (81) 93 03/10/18 22:00 107/81 03/10/18 22:00 85 23 107/81 (90) 93 03/10/18 21:30 87 23 118/77 (91) 93 03/10/18 21:02 86 19 60 03/10/18 21:00 115/64 03/10/18 21:00 86 115/64 03/10/18 21:00 90 23 115/64 (81) 93 03/10/18 20:30 94 23 116/86 (96) 93 03/10/18 20:00 Mechanical Ventilator 03/10/18 20:00 117/78 03/10/18 20:00 90 03/10/18 20:00 95 22 117/78 (91) 93 Intake and Output 03/10/18 03/11/18 18:59 06:59 Intake Total 1712.890 ml 1439.184 ml Output Total 1205 ml 1500 ml Balance 507.890 ml -60.816 ml Free Water 900 ml 750 ml IV Total 512.890 ml 9.184 ml Tube Feeding 300 ml 430 ml Other 250 ml Output Urine Total 1205 ml 1500 ml # Bowel Movements 2 2D Echo: LVEF 25%, Bi-atrial enlargement, Severe MR, RVSP 24 mmHg, RAP 15 mmHg Laboratory Tests Test 03/11/18 04:00 03/11/18 08:02 White Blood Count 12.9 K/UL (4.8-10.8) H Red Blood Count 5.58 M/UL (4.70-6.10) Hemoglobin 14.6 G/DL (14.2-18.0) Hematocrit 45.8 % (42.0-52.0) Mean Corpuscular Volume 82 FL (80-99) Mean Corpuscular Hemoglobin 26.1 PG (27.0-31.0) L Mean Corpuscular Hemoglobin Concent 31.8 G/DL (32.0-36.0) L Red Cell Distribution Width 17.7 % (11.6-14.8) H Platelet Count 225 K/UL (150-450) Mean Platelet Volume 8.6 FL (6.5-10.1) Neutrophils (%) (Auto) 83.4 % (45.0-75.0) H Lymphocytes (%) (Auto) 8.2 % (20.0-45.0) L Monocytes (%) (Auto) 6.1 % (1.0-10.0) Eosinophils (%) (Auto) 2.1 % (0.0-3.0) Basophils (%) (Auto) 0.3 % (0.0-2.0) Sodium Level 153 MMOL/L (136-145) H Potassium Level 3.3 MMOL/L (3.5-5.1) L Chloride Level 116 MMOL/L (98-107) H Carbon Dioxide Level 30 MMOL/L (21-32) Anion Gap 7 mmol/L (5-15) Blood Urea Nitrogen 37 mg/dL (7-18) H Creatinine 1.4 MG/DL (0.55-1.30) H Estimat Glomerular Filtration Rate 52.6 mL/min (>60) Glucose Level 195 MG/DL (74-106) H Calcium Level 7.8 MG/DL (8.5-10.1) L Phosphorus Level 1.9 MG/DL (2.5-4.9) L Magnesium Level 2.1 MG/DL (1.8-2.4) Total Bilirubin 2.6 MG/DL (0.2-1.0) H Direct Bilirubin 1.6 MG/DL (0.0-0.3) H Aspartate Amino Transf (AST/SGOT) 28 U/L (15-37) Alanine Aminotransferase (ALT/SGPT) 46 U/L (12-78) Alkaline Phosphatase 195 U/L (46-116) H Total Protein 6.0 G/DL (6.4-8.2) L Albumin 1.5 G/DL (3.4-5.0) L Globulin 4.5 g/dL Albumin/Globulin Ratio 0.3 (1.0-2.7) L Arterial Blood pH 7.530 (7.350-7.450) Arterial Blood Partial Pressure CO2 34.1 mmHg (35.0-45.0) L Arterial Blood Partial Pressure O2 67.9 mmHg (75.0-100.0) L Arterial Blood HCO3 28.1 mmol/L (22.0-26.0) H Arterial Blood Oxygen Saturation 94.1 % (95-100) L Arterial Blood Base Excess 5.7 (-2-2) H Janes Test Positive Objective HEENT: Atraumatic and normocephalic. Anicteric. Pupils are equal, round, and reactive to light and accommodation. Extraocular muscles intact. Intubated. NECK: JVP elevated about 5cm. No carotid bruits. Carotid upstrokes 2+ bilaterally. CARDIOVASCULAR: Normal S1, S2. Irregularly irregular rhythm. 2/6 Holosystolic murmur, gallop, or rub. LUNGS: Diminished BS both lungs. ABDOMEN: Soft, nontender, and nondistended. No hepatosplenomegaly. Positive bowel sounds. EXTREMITIES: There is 1+ bilateral lower extremity edema with ulcerations. Sudarshan Stuart MD Mar 11, 2018 19:47
[2018-03-11] MEDS: Dyna-Hex 2% Top Sol 2oz TOPIC SCH (20:37)
[2018-03-12] VITALS (28 sets, daily range): BP systolic 89–140; BP diastolic 48–110
[2018-03-12] MEDS: Vancomycin 750mg/NS 250ml 250 ML IVPB SCH ×3 (00:23→22:27)
[2018-03-12] MEDS: NovoLOG Insulin Flexpen SUBQ SCH ×4 (00:31→18:00)
[2018-03-12 05:28] LABS: BASOPHILS % (AUTO) 0.5 % (0.0-2.0); EOSINOPHILS % (AUTO) 1.4 % (0.0-3.0); HEMATOCRIT 43.7 % (42.0-52.0); HEMOGLOBIN 13.9 G/DL (14.2-18.0); LYMPHOCYTES % (AUTO) 10.4 % (20.0-45.0); MEAN CORPUSCULAR VOLUME 82 FL (80-99); MONOCYTES % (AUTO) 7.8 % (1.0-10.0); NEUTROPHILS % (AUTO) 79.9 % (45.0-75.0); PLATELET COUNT 243 K/UL (150-450); RED BLOOD COUNT 5.34 M/UL (4.70-6.10); RED CELL DISTRIBUTION WIDTH 17.8 % (11.6-14.8); WHITE BLOOD COUNT 11.3 K/UL (4.8-10.8)
[2018-03-12 05:40] LABS: ANION GAP 7 mmol/L (5-15); BLOOD UREA NITROGEN 38 mg/dL (7-18); CALCIUM 7.8 MG/DL (8.5-10.1); CARBON DIOXIDE 30 MMOL/L (21-32); CHLORIDE 118 MMOL/L (98-107); CREATININE 1.3 MG/DL (0.55-1.30); POTASSIUM 3.6 MMOL/L (3.5-5.1); SODIUM 155 MMOL/L (136-145)
[2018-03-12] MEDS: HydrALAZINE 25mg tab ORAL SCH ×4 (06:00→18:05)
[2018-03-12] MEDS: dilTIAZem HCl 90mg tab ORAL SCH ×4 (06:00→17:58)
[2018-03-12] MEDS: Carvedilol 25mg Tab ORAL SCH ×2 (09:00→21:00)
[2018-03-12] MEDS: Eliquis 2.5mg tablet ORAL SCH (09:00)
[2018-03-12] MEDS: Pantoprazole Inj IV SCH (09:18)
[2018-03-12] MEDS: Digoxin 0.5mg/2ml Inj IVP SCH (09:18)
--- NOTE | 2018-03-12 09:51 | Pulmonolgy Critical Care Note ---
Critical Care - Asmt/Plan Problems: (1) Acute encephalopathy (2) Cellulitis (3) Acute renal failure (4) Diastolic CHF, chronic (5) Diabetes (6) Hyperglycemia (7) A-fib (8) Abnormal LFTs (9) Rapid atrial fibrillation Respiratory: monitor respiratory rate, adjust FIO2, CXR Cardiac: continue to monitor HR/BP Renal: F/U I&O, increase IV fluid - d5w to correct hypernatremia Infectious Disease: check cultures, continue antibiotics, other - needs spinal tabl to rule out infectious cuases of ALOC, doesn't have anybody to sing his consents. Gastrointestinal: continue feedings/current rate Endocrine: monitor blood sugar Hematologic: monitor H/H, transfuse if hgb<8.5 Neurologic: PRN Ativan, PRN Morphine, keep patient comfortable Notes Reviewed: chef under, cardio Discussed with: nurses, consultants, case monitormanager research - Objective Last 24 Hour Vital Signs Date Time Temp Pulse Resp B/P (MAP) Pulse Ox O2 Delivery O2 Flow Rate FiO2 03/12/18 09:18 83 03/12/18 09:00 83 107/77 03/12/18 09:00 76 15 107/77 (87) 100 03/12/18 08:00 98.5 84 16 104/70 (81) 100 03/12/18 08:00 89 03/12/18 08:00 60 03/12/18 08:00 Mechanical Ventilator Mechanical Ventilator 03/12/18 07:04 85 19 60 03/12/18 07:00 90 20 128/76 (93) 100 03/12/18 06:00 98.7 89 16 124/78 (93) 100 03/12/18 05:28 92 15 60 03/12/18 05:00 93 21 132/80 (97) 100 03/12/18 04:00 82 03/12/18 04:00 Mechanical Ventilator 03/12/18 04:00 99.1 92 21 140/81 (100) 100 03/12/18 03:19 86 17 60 03/12/18 03:00 86 20 126/82 (97) 100 03/12/18 02:00 85 21 111/77 (88) 99 03/12/18 01:16 89 18 60 03/12/18 01:00 86 20 109/77 (88) 100 03/12/18 00:00 99.1 88 22 138/110 (119) 100 03/12/18 00:00 123/80 03/12/18 00:00 86 123/80 03/12/18 00:00 Mechanical Ventilator 03/12/18 00:00 89 03/11/18 23:00 85 21 121/76 (91) 100 03/11/18 22:48 86 17 60 03/11/18 22:00 85 23 123/80 (94) 95 03/11/18 21:24 84 22 60 03/11/18 21:00 84 23 124/83 (97) 100 03/11/18 20:37 80 119/59 03/11/18 20:00 83 03/11/18 20:00 98.4 80 20 119/59 (79) 100 03/11/18 20:00 Mechanical Ventilator 03/11/18 19:23 89 21 60 03/11/18 19:00 84 21 115/57 (76) 100 03/11/18 18:00 84 20 120/78 (92) 100 03/11/18 17:26 105/66 03/11/18 17:25 87 105/66 03/11/18 17:10 87 22 60 03/11/18 17:00 77 20 105/66 (79) 99 03/11/18 16:00 78 03/11/18 16:00 98.7 85 22 109/55 (73) 99 03/11/18 16:00 Mechanical Ventilator 03/11/18 15:00 80 20 116/60 (78) 100 03/11/18 14:32 88 23 60 03/11/18 14:00 85 22 104/56 (72) 100 03/11/18 13:00 88 24 110/60 (77) 100 03/11/18 12:54 81 24 60 03/11/18 12:00 98.5 85 22 109/58 (75) 99 03/11/18 12:00 88 03/11/18 12:00 Mechanical Ventilator 03/11/18 11:24 85 105/60 03/11/18 11:23 105/60 03/11/18 11:00 85 24 105/60 (75) 99 03/11/18 10:32 85 20 60 03/11/18 10:00 87 24 115/62 (79) 98 Status: sedated, obtunded Condition: critical HEENT: atraumatic Neck: full ROM Heart: HR/BP stable, regular Abdomen: non-tender, feeding tube Decubiti: stage Accucheck: 163 Critical Care - Subjective ROS Limited/Unobtainable: Yes Condition: critical EKG Rhythm: Sinus Rhythm FI02: 60 Vent Support Breath Rate: 14 Vent Support Mode: AC Vent Tidal Volume: 600 Sputum Amount: Moderate PEEP: 5.0 PIP: 19 Tube Feeding Amount: 65 I&O: Intake and Output 03/11/18 03/12/18 19:00 07:00 Intake Total 1695.0 ml 1480 ml Output Total 1310 ml 1300 ml Balance 385.0 ml 180 ml Free Water 500 ml 750 ml IV Total 590.0 ml Tube Feeding 605 ml 730 ml Output Urine Total 1310 ml 1300 ml # Bowel Movements 4 6 CXR: RLL infiltrate ET-Tube: 7.5 ET Position: 24 Labs: Laboratory Tests Test 03/11/18 22:00 03/12/18 05:00 Vancomycin Level Trough 12.9 ug/mL (5.0-12.0) H White Blood Count 11.3 K/UL (4.8-10.8) H Red Blood Count 5.34 M/UL (4.70-6.10) Hemoglobin 13.9 G/DL (14.2-18.0) L Hematocrit 43.7 % (42.0-52.0) Mean Corpuscular Volume 82 FL (80-99) Mean Corpuscular Hemoglobin 26.0 PG (27.0-31.0) L Mean Corpuscular Hemoglobin Concent 31.8 G/DL (32.0-36.0) L Red Cell Distribution Width 17.8 % (11.6-14.8) H Platelet Count 243 K/UL (150-450) Mean Platelet Volume 8.2 FL (6.5-10.1) Neutrophils (%) (Auto) 79.9 % (45.0-75.0) H Lymphocytes (%) (Auto) 10.4 % (20.0-45.0) L Monocytes (%) (Auto) 7.8 % (1.0-10.0) Eosinophils (%) (Auto) 1.4 % (0.0-3.0) Basophils (%) (Auto) 0.5 % (0.0-2.0) Sodium Level 155 MMOL/L (136-145) H Potassium Level 3.6 MMOL/L (3.5-5.1) Chloride Level 118 MMOL/L (98-107) H Carbon Dioxide Level 30 MMOL/L (21-32) Anion Gap 7 mmol/L (5-15) Blood Urea Nitrogen 38 mg/dL (7-18) H Creatinine 1.3 MG/DL (0.55-1.30) Estimat Glomerular Filtration Rate 57.3 mL/min (>60) Glucose Level 152 MG/DL (74-106) H Calcium Level 7.8 MG/DL (8.5-10.1) Sunita Davis MD Mar 12, 2018 09:51
[2018-03-12] MEDS: DOPamine 400mg/250ml 250 ML IV SCH ×2 (10:00→19:07)
--- NOTE | 2018-03-12 10:40 | Infectious Diseases Prog Note ---
Assessment/Plan Assessment/Plan Assessment: s/p Code blue 03/08 Aspiration PNA -sp cx ESBL E.coli (S Zosyn, Erta) -03/08 cXR: Increasing right upper lung parenchymal opacity may reflect developing infiltrate in the right upper lobe. There is improved aeration of the right lung base -CXR: Improved aeration of the right lung, presumably representing improving atelectasis. Right lower lobe infiltrate. There may also be pleural fluid on the right. Bilateral interstitial disease. Probably on the basis of pulmonary edema. However, considerable central bronchial wall thickening suggests a significant chronic component B/l LE purulent cellulitis- legs with scratches (self inflicted) -wound cx MRSA -L foot tibia/fibula xray: No acute process -R foot tibia/fibula xray: No acute bony trauma Fever, improving Leukocytosis, improving Acute respiratory failure- due to Afib w/ RVR- n ow intubated 03/08 after Code blue Afib w/ RVR Elevated LFTs, improving - HIDA inconclusive but low prob for acute cholecysitis -HIDA: Questionable very small tracer collection in the region of the gallbladder fossa on delayed images, could represent partial filling of a nondistended gallbladder but this is not conclusive. Acute cholecystitis doubtful but not conclusively excluded based on these images and prior ultrasound, which showed a nondistended gallbladder. Patent common bile duct -Abd US: Cholelithiasis. Borderline gallbladder wall thickening, could indicate early acute cholecystitis changes. Consider hepatobiliary nuclear scan if there is high clinical suspicion. Negative for dilated ducts Incidental finding bilateral pleural effusions -acute hep panel, HIV sc neg ZHAO, resolving DM2 HTN CHF Schizoaffective disorder Plan: -Continue empiric IV Vancomycin #02/14 for cellulitis -Cont Ertapenem d # 4 for ESBL E.coli PNA ( may consider Merrem if pt does not improve ) -03/09 SP ZOsyn #4 -03/06 SP Ceftriaxone #2 -03/03 SP Ancef #2 -03/01 SP Cefepime #2 -f/u cx -Monitor CBC/CMP, temperatures -wound care -Sx, GI f/u Subjective Allergies: Coded Allergies: No Known Allergies (Unverified , 02/16/18) Subjective remains intubated, FIo2 60% afebrile >48hrs leukocytosis and Cr improving Objective Vital Signs Last 24 Hour Vital Signs Date Time Temp Pulse Resp B/P (MAP) Pulse Ox O2 Delivery O2 Flow Rate FiO2 03/12/18 10:00 76 17 116/69 (85) 98 03/12/18 10:00 116/69 03/12/18 09:25 80 16 60 03/12/18 09:18 83 03/12/18 09:00 83 107/77 03/12/18 09:00 76 15 107/77 (87) 100 03/12/18 08:00 98.5 84 16 104/70 (81) 100 03/12/18 08:00 89 03/12/18 08:00 60 03/12/18 08:00 Mechanical Ventilator Mechanical Ventilator 03/12/18 07:04 85 19 60 03/12/18 07:00 90 20 128/76 (93) 100 03/12/18 06:00 98.7 89 16 124/78 (93) 100 03/12/18 05:28 92 15 60 03/12/18 05:00 93 21 132/80 (97) 100 03/12/18 04:00 82 03/12/18 04:00 Mechanical Ventilator 03/12/18 04:00 99.1 92 21 140/81 (100) 100 03/12/18 03:19 86 17 60 03/12/18 03:00 86 20 126/82 (97) 100 03/12/18 02:00 85 21 111/77 (88) 99 03/12/18 01:16 89 18 60 03/12/18 01:00 86 20 109/77 (88) 100 03/12/18 00:00 99.1 88 22 138/110 (119) 100 03/12/18 00:00 123/80 03/12/18 00:00 86 123/80 03/12/18 00:00 Mechanical Ventilator 03/12/18 00:00 89 03/11/18 23:00 85 21 121/76 (91) 100 03/11/18 22:48 86 17 60 03/11/18 22:00 85 23 123/80 (94) 95 03/11/18 21:24 84 22 60 03/11/18 21:00 84 23 124/83 (97) 100 03/11/18 20:37 80 119/59 03/11/18 20:00 83 03/11/18 20:00 98.4 80 20 119/59 (79) 100 03/11/18 20:00 Mechanical Ventilator 03/11/18 19:23 89 21 60 03/11/18 19:00 84 21 115/57 (76) 100 03/11/18 18:00 84 20 120/78 (92) 100 03/11/18 17:26 105/66 03/11/18 17:25 87 105/66 03/11/18 17:10 87 22 60 03/11/18 17:00 77 20 105/66 (79) 99 03/11/18 16:00 78 03/11/18 16:00 98.7 85 22 109/55 (73) 99 03/11/18 16:00 Mechanical Ventilator 03/11/18 15:00 80 20 116/60 (78) 100 03/11/18 14:32 88 23 60 03/11/18 14:00 85 22 104/56 (72) 100 03/11/18 13:00 88 24 110/60 (77) 100 03/11/18 12:54 81 24 60 03/11/18 12:00 98.5 85 22 109/58 (75) 99 03/11/18 12:00 88 03/11/18 12:00 Mechanical Ventilator 03/11/18 11:24 85 105/60 03/11/18 11:23 105/60 03/11/18 11:00 85 24 105/60 (75) 99 Height (Feet): 6 Height (Inches): 0.00 Weight (Pounds): 270 Objective General Appearance: WD/WN Lines, tubes and drains: peripheral HEENT: normocephalic, atraumatic Neck: non-tender, normal alignment Respiratory/Chest: chest wall non-tender, lungs clear Breasts: no masses Cardiovascular/Chest: normal peripheral pulses Abdomen: normal bowel sounds, non tender Extremities: B/l leg erythema, swelling, with scratches and some minimal drainage Laboratory Tests Test 03/11/18 22:00 03/12/18 05:00 Vancomycin Level Trough 12.9 ug/mL (5.0-12.0) H White Blood Count 11.3 K/UL (4.8-10.8) H Red Blood Count 5.34 M/UL (4.70-6.10) Hemoglobin 13.9 G/DL (14.2-18.0) L Hematocrit 43.7 % (42.0-52.0) Mean Corpuscular Volume 82 FL (80-99) Mean Corpuscular Hemoglobin 26.0 PG (27.0-31.0) L Mean Corpuscular Hemoglobin Concent 31.8 G/DL (32.0-36.0) L Red Cell Distribution Width 17.8 % (11.6-14.8) H Platelet Count 243 K/UL (150-450) Mean Platelet Volume 8.2 FL (6.5-10.1) Neutrophils (%) (Auto) 79.9 % (45.0-75.0) H Lymphocytes (%) (Auto) 10.4 % (20.0-45.0) L Monocytes (%) (Auto) 7.8 % (1.0-10.0) Eosinophils (%) (Auto) 1.4 % (0.0-3.0) Basophils (%) (Auto) 0.5 % (0.0-2.0) Sodium Level 155 MMOL/L (136-145) H Potassium Level 3.6 MMOL/L (3.5-5.1) Chloride Level 118 MMOL/L (98-107) H Carbon Dioxide Level 30 MMOL/L (21-32) Anion Gap 7 mmol/L (5-15) Blood Urea Nitrogen 38 mg/dL (7-18) H Creatinine 1.3 MG/DL (0.55-1.30) Estimat Glomerular Filtration Rate 57.3 mL/min (>60) Glucose Level 152 MG/DL (74-106) H Calcium Level 7.8 MG/DL (8.5-10.1) L Current Medications Medications (Trade) Dose Ordered Sig/Roseline Route PRN Reason Start Time Stop Time Status Last Admin Dose Admin Acetaminophen (Tylenol) 650 mg Q4H PRN ORAL fever (temp>100.5F) 03/08/18 23:45 03/30/18 19:44 Carvedilol (Coreg) 25 mg EVERY 12 HOURS ORAL 03/09/18 09:00 04/02/18 20:59 Chlorhexidine Gluconate (Ashley-Hex 2%) 1 applic DAILY@1999 TOPIC 03/09/18 20:00 04/01/18 19:59 03/11/18 20:37 Dextrose 1,000 ml @ 100 mls/hr Q10H IV 03/12/18 10:00 04/11/18 09:59 03/12/18 10:28 Dextrose (Dextrose 50%) 25 ml Q30M PRN IV Hypoglycemia 03/08/18 23:00 03/30/18 13:59 Dextrose (Dextrose 50%) 50 ml Q30M PRN IV Hypoglycemia 03/08/18 23:00 03/30/18 13:59 Digoxin (Lanoxin) 0.125 mg DAILY IVP 03/09/18 09:00 04/02/18 14:21 03/12/18 09:18 Diltiazem HCl (Cardizem) 90 mg EVERY 6 HOURS ORAL 03/09/18 00:00 04/06/18 11:59 03/09/18 12:22 Dopamine HCl/ Dextrose 250 ml @ 0 mls/hr Q24H IV 03/09/18 10:00 04/08/18 09:59 03/10/18 07:00 Ertapenem 1 gm/ Sodium Chloride 55 ml @ 110 mls/hr Q24H IVPB 03/09/18 12:00 03/14/18 11:59 03/11/18 11:32 Haloperidol Lactate (Haldol) 5 mg Q4H PRN IM Agitation 03/08/18 23:45 03/31/18 19:44 Hydralazine HCl (Apresoline) 25 mg Q6HR ORAL 03/09/18 00:00 04/04/18 18:21 Insulin Aspart (NovoLOG) EVERY 6 HOURS SUBQ 03/11/18 12:00 04/10/18 11:59 03/12/18 06:07 Lorazepam (Ativan 2mg/ml 1ml) 1 mg Q4H PRN IV For Anxiety 03/09/18 02:00 03/14/18 17:59 Lorazepam (Ativan 2mg/ml 1ml) 2 mg Q4H PRN IV For more severe Anxiety 03/08/18 23:15 03/15/18 23:14 Metoprolol Tartrate (Lopressor) 10 mg Q1H PRN IVP Heart rate >120 per minute 03/08/18 23:45 03/31/18 19:44 Morphine Sulfate (Morphine Sulfate) 4 mg Q4H PRN IVP For Pain 03/08/18 23:15 12/13/18 23:14 Nitroglycerin (Ntg) 0.4 mg Q5M PRN SL Prn Chest Pain 03/08/18 23:00 03/30/18 18:20 Ondansetron HCl (Zofran) 4 mg Q6H PRN IVP Nausea & Vomiting 03/09/18 01:45 04/05/18 19:44 Pantoprazole (Protonix) 40 mg DAILY IV 03/09/18 09:00 04/08/18 08:59 03/12/18 09:18 Polyethylene Glycol (Miralax) 17 gm DAILYPRN PRN ORAL Constipation 03/09/18 19:45 04/05/18 19:44 Potassium Phosphate 30 mm/ Sodium Chloride 285 ml @ 47.5 mls/hr ONCE IV 03/11/18 11:00 03/12/18 13:00 03/11/18 11:52 Temazepam (Restoril) 15 mg HSPRN PRN ORAL Insomnia 03/09/18 19:45 03/13/18 19:44 Vancomycin HCl (Vanco rx to dose) 1 ea DAILY PRN MISC rx protocol 03/09/18 09:00 04/05/18 19:44 Vancomycin/Sodium Chloride 250 ml @ 167 mls/hr Q12H IVPB 03/08/18 23:00 03/13/18 22:59 03/12/18 00:23 Susan Dennis M.D. Mar 12, 2018 10:40
[2018-03-12 10:57] LABS: INR 1.1 (0.9-1.1)
[2018-03-12] MEDS: Ertapenem 1 GM in NS 55 ML IVPB SCH (12:25)
--- NOTE | 2018-03-12 12:30 | GI Progress Note ---
Assessment/Plan Problems: (1) Dysphagia ICD Codes: R13.10 - Dysphagia, unspecified SNOMED: 43514795, 032153698 (2) Drug abuse ICD Codes: F19.10 - Other psychoactive substance abuse, uncomplicated SNOMED: 54992607 (3) Encounter for PEG (percutaneous endoscopic gastrostomy) ICD Codes: Z43.1 - Encounter for attention to gastrostomy SNOMED: 983147849, 179294471 (4) Diastolic CHF, chronic ICD Codes: I50.32 - Chronic diastolic (congestive) heart failure SNOMED: 51117270, 475608128 (5) Abnormal LFTs ICD Codes: R94.5 - Abnormal results of liver function studies SNOMED: 033065944 Status: not improved, unchanged Status Narrative Discussed with Dr. Noe. Assessment/Plan us reviewed >> Cholelithiasis. Borderline gallbladder wall thickening, could indicate early acute cholecystitis changes. neg hepatitis panel HIDA negative LFTs still elevated, trend ST evaluation noted cont NGTFs, will consider PEG if no patient does not improve. patient now on Eliquis that needs to be held for 48 hours prior to any procedure electrolyte correction prn transfusions ppi fu labs The patient was seen and examined at bedside and all new and available data was reviewed in the patients chart. I agree with the above findings, impression and plan. (Patient seen earlier today. Signature stamp does not reflect patient encounter time.). - Khalif Noe MD Subjective Subjective limited Objective Last 24 Hour Vital Signs Date Time Temp Pulse Resp B/P (MAP) Pulse Ox O2 Delivery O2 Flow Rate FiO2 03/12/18 12:26 82 125/84 03/12/18 12:00 125/84 03/12/18 12:00 Mechanical Ventilator Mechanical Ventilator 03/12/18 12:00 88 03/12/18 11:00 84 17 121/75 (90) 100 03/12/18 10:39 87 14 60 03/12/18 10:00 76 17 116/69 (85) 98 03/12/18 10:00 116/69 03/12/18 09:25 80 16 60 03/12/18 09:18 83 03/12/18 09:00 83 107/77 03/12/18 09:00 76 15 107/77 (87) 100 03/12/18 08:00 98.5 84 16 104/70 (81) 100 03/12/18 08:00 89 03/12/18 08:00 60 03/12/18 08:00 Mechanical Ventilator Mechanical Ventilator 03/12/18 07:04 85 19 60 03/12/18 07:00 90 20 128/76 (93) 100 03/12/18 06:00 98.7 89 16 124/78 (93) 100 03/12/18 05:28 92 15 60 03/12/18 05:00 93 21 132/80 (97) 100 03/12/18 04:00 82 03/12/18 04:00 Mechanical Ventilator 03/12/18 04:00 99.1 92 21 140/81 (100) 100 03/12/18 03:19 86 17 60 03/12/18 03:00 86 20 126/82 (97) 100 03/12/18 02:00 85 21 111/77 (88) 99 03/12/18 01:16 89 18 60 03/12/18 01:00 86 20 109/77 (88) 100 03/12/18 00:00 99.1 88 22 138/110 (119) 100 03/12/18 00:00 123/80 03/12/18 00:00 86 123/80 03/12/18 00:00 Mechanical Ventilator 03/12/18 00:00 89 03/11/18 23:00 85 21 121/76 (91) 100 03/11/18 22:48 86 17 60 03/11/18 22:00 85 23 123/80 (94) 95 03/11/18 21:24 84 22 60 03/11/18 21:00 84 23 124/83 (97) 100 03/11/18 20:37 80 119/59 03/11/18 20:00 83 03/11/18 20:00 98.4 80 20 119/59 (79) 100 03/11/18 20:00 Mechanical Ventilator 03/11/18 19:23 89 21 60 03/11/18 19:00 84 21 115/57 (76) 100 03/11/18 18:00 84 20 120/78 (92) 100 03/11/18 17:26 105/66 03/11/18 17:25 87 105/66 03/11/18 17:10 87 22 60 03/11/18 17:00 77 20 105/66 (79) 99 03/11/18 16:00 78 03/11/18 16:00 98.7 85 22 109/55 (73) 99 03/11/18 16:00 Mechanical Ventilator 03/11/18 15:00 80 20 116/60 (78) 100 03/11/18 14:32 88 23 60 03/11/18 14:00 85 22 104/56 (72) 100 03/11/18 13:00 88 24 110/60 (77) 100 03/11/18 12:54 81 24 60 Intake and Output 03/11/18 03/12/18 19:00 07:00 Intake Total 1695.0 ml 1480 ml Output Total 1310 ml 1300 ml Balance 385.0 ml 180 ml Free Water 500 ml 750 ml IV Total 590.0 ml Tube Feeding 605 ml 730 ml Output Urine Total 1310 ml 1300 ml # Bowel Movements 4 6 Laboratory Tests Test 03/11/18 22:00 03/12/18 05:00 03/12/18 10:25 03/12/18 11:35 Vancomycin Level Trough 12.9 ug/mL (5.0-12.0) H White Blood Count 11.3 K/UL (4.8-10.8) H Red Blood Count 5.34 M/UL (4.70-6.10) Hemoglobin 13.9 G/DL (14.2-18.0) L Hematocrit 43.7 % (42.0-52.0) Mean Corpuscular Volume 82 FL (80-99) Mean Corpuscular Hemoglobin 26.0 PG (27.0-31.0) L Mean Corpuscular Hemoglobin Concent 31.8 G/DL (32.0-36.0) L Red Cell Distribution Width 17.8 % (11.6-14.8) H Platelet Count 243 K/UL (150-450) Mean Platelet Volume 8.2 FL (6.5-10.1) Neutrophils (%) (Auto) 79.9 % (45.0-75.0) H Lymphocytes (%) (Auto) 10.4 % (20.0-45.0) L Monocytes (%) (Auto) 7.8 % (1.0-10.0) Eosinophils (%) (Auto) 1.4 % (0.0-3.0) Basophils (%) (Auto) 0.5 % (0.0-2.0) Sodium Level 155 MMOL/L (136-145) H Potassium Level 3.6 MMOL/L (3.5-5.1) Chloride Level 118 MMOL/L (98-107) H Carbon Dioxide Level 30 MMOL/L (21-32) Anion Gap 7 mmol/L (5-15) Blood Urea Nitrogen 38 mg/dL (7-18) H Creatinine 1.3 MG/DL (0.55-1.30) Estimat Glomerular Filtration Rate 57.3 mL/min (>60) Glucose Level 152 MG/DL (74-106) H Calcium Level 7.8 MG/DL (8.5-10.1) L Prothrombin Time 11.6 SEC (9.30-11.50) H Prothromb Time International Ratio 1.1 (0.9-1.1) Activated Partial Thromboplast Time 31 SEC (23-33) West Nile Virus IgG Antibody Pending West Nile Virus IgM Antibody Pending Height (Feet): 6 Height (Inches): 0.00 Weight (Pounds): 270 General Appearance: WD/WN, no apparent distress, alert Cardiovascular: normal rate Respiratory/Chest: normal breath sounds, no respiratory distress, other - intubated Abdominal Exam: normal bowel sounds, non tender, soft, other - NGT Extremities: non-tender Efraín Hernandez NP Mar 12, 2018 12:30
--- NOTE | 2018-03-12 14:37 | General Progress Note ---
Assessment/Plan Problem List: (1) Diabetes ICD Codes: E11.9 - Type 2 diabetes mellitus without complications SNOMED: 75721442 (2) Cellulitis ICD Codes: L03.90 - Cellulitis, unspecified SNOMED: 355739624 (3) Acute renal failure ICD Codes: N17.9 - Acute kidney failure, unspecified SNOMED: 95459087 (4) Rapid atrial fibrillation ICD Codes: I48.91 - Unspecified atrial fibrillation SNOMED: 743529935 Status: stable, progressing Assessment/Plan vent cardio f/u abx cbc bmp am Subjective Constitutional: Reports: weakness Allergies: Coded Allergies: No Known Allergies (Unverified , 02/16/18) All Systems: reviewed and negative except above Subjective intub sedated ng in icu Objective Last 24 Hour Vital Signs Date Time Temp Pulse Resp B/P (MAP) Pulse Ox O2 Delivery O2 Flow Rate FiO2 03/12/18 14:00 64 22 106/63 (77) 98 03/12/18 13:26 74 16 60 03/12/18 13:00 62 17 114/79 (91) 98 03/12/18 12:26 82 125/84 03/12/18 12:00 97.9 88 16 114/68 (83) 99 03/12/18 12:00 125/84 03/12/18 12:00 Mechanical Ventilator Mechanical Ventilator 03/12/18 12:00 88 03/12/18 11:00 84 17 121/75 (90) 100 03/12/18 10:39 87 14 60 03/12/18 10:00 76 17 116/69 (85) 98 03/12/18 10:00 116/69 03/12/18 09:25 80 16 60 03/12/18 09:18 83 03/12/18 09:00 83 107/77 03/12/18 09:00 76 15 107/77 (87) 100 03/12/18 08:00 98.5 84 16 104/70 (81) 100 03/12/18 08:00 89 03/12/18 08:00 60 03/12/18 08:00 Mechanical Ventilator Mechanical Ventilator 03/12/18 07:04 85 19 60 03/12/18 07:00 90 20 128/76 (93) 100 03/12/18 06:00 98.7 89 16 124/78 (93) 100 03/12/18 05:28 92 15 60 03/12/18 05:00 93 21 132/80 (97) 100 03/12/18 04:00 82 03/12/18 04:00 Mechanical Ventilator 03/12/18 04:00 99.1 92 21 140/81 (100) 100 03/12/18 03:19 86 17 60 03/12/18 03:00 86 20 126/82 (97) 100 03/12/18 02:00 85 21 111/77 (88) 99 03/12/18 01:16 89 18 60 03/12/18 01:00 86 20 109/77 (88) 100 03/12/18 00:00 99.1 88 22 138/110 (119) 100 03/12/18 00:00 123/80 03/12/18 00:00 86 123/80 03/12/18 00:00 Mechanical Ventilator 03/12/18 00:00 89 03/11/18 23:00 85 21 121/76 (91) 100 03/11/18 22:48 86 17 60 03/11/18 22:00 85 23 123/80 (94) 95 03/11/18 21:24 84 22 60 03/11/18 21:00 84 23 124/83 (97) 100 03/11/18 20:37 80 119/59 03/11/18 20:00 83 03/11/18 20:00 98.4 80 20 119/59 (79) 100 03/11/18 20:00 Mechanical Ventilator 03/11/18 19:23 89 21 60 03/11/18 19:00 84 21 115/57 (76) 100 03/11/18 18:00 84 20 120/78 (92) 100 03/11/18 17:26 105/66 03/11/18 17:25 87 105/66 03/11/18 17:10 87 22 60 03/11/18 17:00 77 20 105/66 (79) 99 03/11/18 16:00 78 03/11/18 16:00 98.7 85 22 109/55 (73) 99 03/11/18 16:00 Mechanical Ventilator 03/11/18 15:00 80 20 116/60 (78) 100 Intake and Output 03/11/18 03/12/18 19:00 07:00 Intake Total 1695.0 ml 1480 ml Output Total 1310 ml 1300 ml Balance 385.0 ml 180 ml Free Water 500 ml 750 ml IV Total 590.0 ml Tube Feeding 605 ml 730 ml Output Urine Total 1310 ml 1300 ml # Bowel Movements 4 6 Laboratory Tests 03/11/18 22:00: Vancomycin Level Trough 12.9H 03/12/18 05:00: White Blood Count 11.3H, Red Blood Count 5.34, Hemoglobin 13.9L, Hematocrit 43.7 , Mean Corpuscular Volume 82, Mean Corpuscular Hemoglobin 26.0L, Mean Corpuscular Hemoglobin Concent 31.8L, Red Cell Distribution Width 17.8H, Platelet Count 243, Mean Platelet Volume 8.2, Neutrophils (%) (Auto) 79.9H, Lymphocytes (%) (Auto) 10.4L, Monocytes (%) (Auto) 7.8, Eosinophils (%) (Auto) 1.4, Basophils (%) (Auto) 0.5, Sodium Level 155H, Potassium Level 3.6, Chloride Level 118H, Carbon Dioxide Level 30, Anion Gap 7, Blood Urea Nitrogen 38H, Creatinine 1.3, Estimat Glomerular Filtration Rate 57.3, Glucose Level 152H, Calcium Level 7.8L 03/12/18 10:25: Prothrombin Time 11.6H, Prothromb Time International Ratio 1.1, Activated Partial Thromboplast Time 31 03/12/18 11:35: West Nile Virus IgG Antibody [Pending], West Nile Virus IgM Antibody [Pending] Height (Feet): 6 Height (Inches): 0.00 Weight (Pounds): 270 General Appearance: lethargic EENT: PERRL/EOMI Neck: normal alignment Cardiovascular: normal peripheral pulses, normal rate, regular rhythm Respiratory/Chest: chest wall non-tender, decreased breath sounds Abdomen: normal bowel sounds, non tender, soft Extremities: normal inspection Edema: no edema noted Arm (L), no edema noted Arm (R), no edema noted Leg (L), no edema noted Leg (R), no edema noted Pedal (L), no edema noted Pedal (R), no edema noted Generalized Neurologic: motor weakness Skin: normal pigmentation, warm/dry Mick Garcia DO Mar 12, 2018 14:37
--- NOTE | 2018-03-12 15:32 | General Surgery Progress Note ---
General Surgery-Progress Note Subjective Additional Comments arterial duplex noted. still intubated on vent. more alert today. Objective Last 24 Hour Vital Signs Date Time Temp Pulse Resp B/P (MAP) Pulse Ox O2 Delivery O2 Flow Rate FiO2 03/12/18 15:00 70 25 112/70 (84) 97 03/12/18 14:40 73 26 60 03/12/18 14:00 64 22 106/63 (77) 98 03/12/18 13:26 74 16 60 03/12/18 13:00 62 17 114/79 (91) 98 03/12/18 12:26 82 125/84 03/12/18 12:00 97.9 88 16 114/68 (83) 99 03/12/18 12:00 125/84 03/12/18 12:00 Mechanical Ventilator Mechanical Ventilator 03/12/18 12:00 88 03/12/18 11:00 84 17 121/75 (90) 100 03/12/18 10:39 87 14 60 03/12/18 10:00 76 17 116/69 (85) 98 03/12/18 10:00 116/69 03/12/18 09:25 80 16 60 03/12/18 09:18 83 03/12/18 09:00 83 107/77 03/12/18 09:00 76 15 107/77 (87) 100 03/12/18 08:00 98.5 84 16 104/70 (81) 100 03/12/18 08:00 89 03/12/18 08:00 60 03/12/18 08:00 Mechanical Ventilator Mechanical Ventilator 03/12/18 07:04 85 19 60 03/12/18 07:00 90 20 128/76 (93) 100 03/12/18 06:00 98.7 89 16 124/78 (93) 100 03/12/18 05:28 92 15 60 03/12/18 05:00 93 21 132/80 (97) 100 03/12/18 04:00 82 03/12/18 04:00 Mechanical Ventilator 03/12/18 04:00 99.1 92 21 140/81 (100) 100 03/12/18 03:19 86 17 60 03/12/18 03:00 86 20 126/82 (97) 100 03/12/18 02:00 85 21 111/77 (88) 99 03/12/18 01:16 89 18 60 03/12/18 01:00 86 20 109/77 (88) 100 03/12/18 00:00 99.1 88 22 138/110 (119) 100 03/12/18 00:00 123/80 03/12/18 00:00 86 123/80 03/12/18 00:00 Mechanical Ventilator 03/12/18 00:00 89 03/11/18 23:00 85 21 121/76 (91) 100 03/11/18 22:48 86 17 60 03/11/18 22:00 85 23 123/80 (94) 95 03/11/18 21:24 84 22 60 03/11/18 21:00 84 23 124/83 (97) 100 03/11/18 20:37 80 119/59 03/11/18 20:00 83 03/11/18 20:00 98.4 80 20 119/59 (79) 100 03/11/18 20:00 Mechanical Ventilator 03/11/18 19:23 89 21 60 03/11/18 19:00 84 21 115/57 (76) 100 03/11/18 18:00 84 20 120/78 (92) 100 03/11/18 17:26 105/66 03/11/18 17:25 87 105/66 03/11/18 17:10 87 22 60 03/11/18 17:00 77 20 105/66 (79) 99 03/11/18 16:00 78 03/11/18 16:00 98.7 85 22 109/55 (73) 99 03/11/18 16:00 Mechanical Ventilator I&O Intake and Output 03/11/18 03/12/18 19:00 07:00 Intake Total 1695.0 ml 1480 ml Output Total 1310 ml 1300 ml Balance 385.0 ml 180 ml Free Water 500 ml 750 ml IV Total 590.0 ml Tube Feeding 605 ml 730 ml Output Urine Total 1310 ml 1300 ml # Bowel Movements 4 6 Laboratory Tests Test 03/11/18 22:00 03/12/18 05:00 03/12/18 10:25 03/12/18 11:35 Vancomycin Level Trough 12.9 ug/mL (5.0-12.0) H White Blood Count 11.3 K/UL (4.8-10.8) H Red Blood Count 5.34 M/UL (4.70-6.10) Hemoglobin 13.9 G/DL (14.2-18.0) L Hematocrit 43.7 % (42.0-52.0) Mean Corpuscular Volume 82 FL (80-99) Mean Corpuscular Hemoglobin 26.0 PG (27.0-31.0) L Mean Corpuscular Hemoglobin Concent 31.8 G/DL (32.0-36.0) L Red Cell Distribution Width 17.8 % (11.6-14.8) H Platelet Count 243 K/UL (150-450) Mean Platelet Volume 8.2 FL (6.5-10.1) Neutrophils (%) (Auto) 79.9 % (45.0-75.0) H Lymphocytes (%) (Auto) 10.4 % (20.0-45.0) L Monocytes (%) (Auto) 7.8 % (1.0-10.0) Eosinophils (%) (Auto) 1.4 % (0.0-3.0) Basophils (%) (Auto) 0.5 % (0.0-2.0) Sodium Level 155 MMOL/L (136-145) H Potassium Level 3.6 MMOL/L (3.5-5.1) Chloride Level 118 MMOL/L (98-107) H Carbon Dioxide Level 30 MMOL/L (21-32) Anion Gap 7 mmol/L (5-15) Blood Urea Nitrogen 38 mg/dL (7-18) H Creatinine 1.3 MG/DL (0.55-1.30) Estimat Glomerular Filtration Rate 57.3 mL/min (>60) Glucose Level 152 MG/DL (74-106) H Calcium Level 7.8 MG/DL (8.5-10.1) L Prothrombin Time 11.6 SEC (9.30-11.50) H Prothromb Time International Ratio 1.1 (0.9-1.1) Activated Partial Thromboplast Time 31 SEC (23-33) West Nile Virus IgG Antibody Pending West Nile Virus IgM Antibody Pending Plan Problems: (1) Abnormal LFTs Assessment & Plan: will obtain hepatitis panel US abdomen - Cholelithiasis; Borderline gallbladder wall thickening, could indicate early acute cholecystitis changes. Consider hepatobiliary nuclear scan if there is high clinical suspicion Negative for dilated ducts will monitor clinically for now HIDA noted hep panel negative hiv neg LFTs noted / improving no surgical intervention necessary at this time. -unlikely cholecystitis. likely contracted GB trend labs (2) Cellulitis Assessment & Plan: chronic bilateral lower extremity wounds / ulcers acute on chronic cellulitis no abscess noted serous drainage multiple wounds that seem traumatic like cuts some small ulcers see wound photos for details -IV Abx as per ID -Keep legs elevated -apply skin protectant, hydrogel, non adherent dressings, and wrap ICU care and management (3) Decubital ulcer Assessment & Plan: patient with two small DTI to sacrum now. precautions being taken. patient being turned q2h. foam dressings and skin protectant has been in place. air mattress. unfortunately given condition and current state despite maximal effort there are unavoidable pressure wounds noted. will continue to maximal care thank you Garth Cornelius Mar 12, 2018 15:32
--- NOTE | 2018-03-12 18:09 | Nephrology Progress Note ---
Assessment/Plan Assessment 1.hypernatremia 2.ZHAO 3.ckd 4.respiratory failure 5.CHF Plan free water via NG obtain u/a hold lasix monitoring renal function avoid NSAID replace electrolyte as need it Subjective Constitutional: Reports: no symptoms HEENT: Reports: no symptoms Genitourinary: Reports: no symptoms Subjective continue to be in ICU off pressor good urine out put unresponsive Objective Objective Last 24 Hour Vital Signs Date Time Temp Pulse Resp B/P (MAP) Pulse Ox O2 Delivery O2 Flow Rate FiO2 03/12/18 18:05 106/66 03/12/18 17:58 79 131/73 03/12/18 17:16 78 15 60 03/12/18 17:00 77 22 131/73 (92) 96 03/12/18 16:00 Mechanical Ventilator Mechanical Ventilator 03/12/18 16:00 74 03/12/18 16:00 98.5 75 22 113/70 (84) 99 03/12/18 15:00 70 25 112/70 (84) 97 03/12/18 14:40 73 26 60 03/12/18 14:00 64 22 106/63 (77) 98 03/12/18 13:26 74 16 60 03/12/18 13:00 62 17 114/79 (91) 98 03/12/18 12:26 82 125/84 03/12/18 12:00 97.9 88 16 114/68 (83) 99 03/12/18 12:00 125/84 03/12/18 12:00 Mechanical Ventilator Mechanical Ventilator 03/12/18 12:00 88 03/12/18 11:00 84 17 121/75 (90) 100 03/12/18 10:39 87 14 60 03/12/18 10:00 76 17 116/69 (85) 98 03/12/18 10:00 116/69 03/12/18 09:25 80 16 60 03/12/18 09:18 83 03/12/18 09:00 83 107/77 03/12/18 09:00 76 15 107/77 (87) 100 03/12/18 08:00 98.5 84 16 104/70 (81) 100 03/12/18 08:00 89 03/12/18 08:00 60 03/12/18 08:00 Mechanical Ventilator Mechanical Ventilator 03/12/18 07:04 85 19 60 03/12/18 07:00 90 20 128/76 (93) 100 03/12/18 06:00 98.7 89 16 124/78 (93) 100 03/12/18 05:28 92 15 60 03/12/18 05:00 93 21 132/80 (97) 100 03/12/18 04:00 82 03/12/18 04:00 Mechanical Ventilator 03/12/18 04:00 99.1 92 21 140/81 (100) 100 03/12/18 03:19 86 17 60 03/12/18 03:00 86 20 126/82 (97) 100 03/12/18 02:00 85 21 111/77 (88) 99 03/12/18 01:16 89 18 60 03/12/18 01:00 86 20 109/77 (88) 100 03/12/18 00:00 99.1 88 22 138/110 (119) 100 03/12/18 00:00 123/80 03/12/18 00:00 86 123/80 03/12/18 00:00 Mechanical Ventilator 03/12/18 00:00 89 03/11/18 23:00 85 21 121/76 (91) 100 03/11/18 22:48 86 17 60 03/11/18 22:00 85 23 123/80 (94) 95 03/11/18 21:24 84 22 60 03/11/18 21:00 84 23 124/83 (97) 100 03/11/18 20:37 80 119/59 03/11/18 20:00 83 03/11/18 20:00 98.4 80 20 119/59 (79) 100 03/11/18 20:00 Mechanical Ventilator 03/11/18 19:23 89 21 60 03/11/18 19:00 84 21 115/57 (76) 100 Intake and Output 03/11/18 03/12/18 18:59 06:59 Intake Total 1920.0 ml 1480 ml Output Total 1260 ml 1300 ml Balance 660.0 ml 180 ml Free Water 750 ml 750 ml IV Total 590.0 ml Tube Feeding 580 ml 730 ml Output Urine Total 1260 ml 1300 ml # Bowel Movements 4 6 Laboratory Tests 03/11/18 22:00: Vancomycin Level Trough 12.9H 03/12/18 05:00: White Blood Count 11.3H, Red Blood Count 5.34, Hemoglobin 13.9L, Hematocrit 43.7 , Mean Corpuscular Volume 82, Mean Corpuscular Hemoglobin 26.0L, Mean Corpuscular Hemoglobin Concent 31.8L, Red Cell Distribution Width 17.8H, Platelet Count 243, Mean Platelet Volume 8.2, Neutrophils (%) (Auto) 79.9H, Lymphocytes (%) (Auto) 10.4L, Monocytes (%) (Auto) 7.8, Eosinophils (%) (Auto) 1.4, Basophils (%) (Auto) 0.5, Sodium Level 155H, Potassium Level 3.6, Chloride Level 118H, Carbon Dioxide Level 30, Anion Gap 7, Blood Urea Nitrogen 38H, Creatinine 1.3, Estimat Glomerular Filtration Rate 57.3, Glucose Level 152H, Calcium Level 7.8L 03/12/18 10:25: Prothrombin Time 11.6H, Prothromb Time International Ratio 1.1, Activated Partial Thromboplast Time 31 03/12/18 11:35: West Nile Virus IgG Antibody [Pending], West Nile Virus IgM Antibody [Pending] Height (Feet): 6 Height (Inches): 0.00 Weight (Pounds): 270 Objective HEENT: Atraumatic and normocephalic. Anicteric. Pupils are equal, round, and reactive to light and accommodation. Extraocular muscles intact. Altered. NECK: JVP elevated about 5cm. No carotid bruits. Carotid upstrokes 2+ bilaterally. CARDIOVASCULAR: Normal S1, S2. Irregularly irregular rhythm. 2/6 Holosystolic murmur, gallop, or rub. LUNGS: Diminished BS both lungs. ABDOMEN: Soft, nontender, and nondistended. No hepatosplenomegaly. Positive bowel sounds. EXTREMITIES: There is 1+ bilateral lower extremity edema with ulcerations. Maryana Collier MD Mar 12, 2018 18:09
--- NOTE | 2018-03-12 19:17 | Neurology Progress Note ---
Interim History Interim History Interim History Mr. Cornejo looks about the same as yesterday. He is intubated, artificially ventilated and in the ICU. He is poorly responsive, he cannot be aroused, on deep pain he does wince on upper extremity stimulation but not lower extremity stimulation. As per his nurse he was more responsive earlier but had to be given Ativan 2 mg IV for agitation and has since been sedated. There has been no improvement in his neurologic dysfunction. Review of Systems Neuro Review of Systems Unable to obtain. Objective Physical Exam Last Vital Signs Date Time Temp Pulse Resp B/P (MAP) Pulse Ox O2 Delivery O2 Flow Rate FiO2 03/12/18 19:07 115/64 03/12/18 18:00 79 20 96 03/12/18 17:16 60 03/12/18 16:00 Mechanical Ventilator Mechanical Ventilator 03/12/18 16:00 98.5 03/08/18 20:00 15.0 Laboratory Tests Test 03/11/18 22:00 03/12/18 05:00 03/12/18 10:25 03/12/18 11:35 Vancomycin Level Trough 12.9 ug/mL (5.0-12.0) H White Blood Count 11.3 K/UL (4.8-10.8) H Red Blood Count 5.34 M/UL (4.70-6.10) Hemoglobin 13.9 G/DL (14.2-18.0) L Hematocrit 43.7 % (42.0-52.0) Mean Corpuscular Volume 82 FL (80-99) Mean Corpuscular Hemoglobin 26.0 PG (27.0-31.0) L Mean Corpuscular Hemoglobin Concent 31.8 G/DL (32.0-36.0) L Red Cell Distribution Width 17.8 % (11.6-14.8) H Platelet Count 243 K/UL (150-450) Mean Platelet Volume 8.2 FL (6.5-10.1) Neutrophils (%) (Auto) 79.9 % (45.0-75.0) H Lymphocytes (%) (Auto) 10.4 % (20.0-45.0) L Monocytes (%) (Auto) 7.8 % (1.0-10.0) Eosinophils (%) (Auto) 1.4 % (0.0-3.0) Basophils (%) (Auto) 0.5 % (0.0-2.0) Sodium Level 155 MMOL/L (136-145) H Potassium Level 3.6 MMOL/L (3.5-5.1) Chloride Level 118 MMOL/L (98-107) H Carbon Dioxide Level 30 MMOL/L (21-32) Anion Gap 7 mmol/L (5-15) Blood Urea Nitrogen 38 mg/dL (7-18) H Creatinine 1.3 MG/DL (0.55-1.30) Estimat Glomerular Filtration Rate 57.3 mL/min (>60) Glucose Level 152 MG/DL (74-106) H Calcium Level 7.8 MG/DL (8.5-10.1) L Prothrombin Time 11.6 SEC (9.30-11.50) H Prothromb Time International Ratio 1.1 (0.9-1.1) Activated Partial Thromboplast Time 31 SEC (23-33) West Nile Virus IgG Antibody Pending West Nile Virus IgM Antibody Pending Neurologic Exam Objective PHYSICAL EXAMINATION: GENERAL: He is a well developed, well nourished, gentleman, lying in an ICU bed, connected to a ventilator via an priti-tracheal tube. HEAD: Normocephalic and atraumatic. EENT: Examination benign. NECK: No neck rigidity was observed. NEUROLOGIC EXAMINATION: MENTAL STATUS EXAMINATION: He could not be aroused even on deep painful stimuli. He did wince on deep pain in the UEs only. Further mental status testing was impossible. SPEECH: Could not be tested. LANGUAGE: Could not be tested. CRANIAL NERVE EXAMINATION: II: He did not blink to threat. III, IV & : The external ocular movements were present on oculocephalic maneuvers - but restricted. The pupils were 3 mm in diameter and did not react to light. V & VII: The corneal reflexes were subdued but equal. VIII: He did not respond to sounds and had no nystagmus. IX & X: The gag reflex was absent. XI: The sternocleidomastoids and trapezii did not function. XII: The tongue could not be tested adequately. MOTOR SYSTEM: The tone was normal in all 4 extremities. Examination of muscle mass revealed no focal wasting. 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 Examination of power was impossible to perform because even on applying deep painful stimuli no movements were seen. SENSORY EXAMINATION: He only responded to deep painful stimuli with wincing in the UEs. REFLEXES: 0 at the biceps, triceps, brachioradialis, knees, and ankles. The right plantar response could not be tested as he had no toes, and the left plantar response was mute. COORDINATION, STANCE & GAIT: Could not be tested. Impression/Recommendations Diagnostic Impression 1. Mr. Dustin Cornejo is a 57-year-old, gentleman, of unknown handedness, who was hospitalized for right lower extremity cellulitis and then in the hospital deteriorated to a point where became quite altered with regards to his mental state on 03/05/2018 and was transferred to the ICU. He was noted to have atrial fibrillation with a rapid ventricular rate and shortness of breath related to hypoxic respiratory failure and then became agitated as a result of which he was given multiple doses of Ativan, Haldol, and morphine. 2. He looks about the same as yesterday. He is intubated, artificially ventilated and in the ICU. He is poorly responsive, he cannot be aroused, on deep pain he does wince on upper extremity stimulation but not lower extremity stimulation. As per his nurse he was more responsive earlier but had to be given Ativan 2 mg IV for agitation and has since been sedated. There has been no improvement in his neurologic dysfunction. 3. On neurological examination, at this time, he is in a deep coma. He has no signs of cortical function. He does have brainstem function in the form of restricted eye movements on oculocephalic maneuvers and corneal reflexes that are diminished but equal. He has globally absent deep tendon reflexes, and plantar response on the left side is mute. 4. His latest laboratory data on my initial evaluation revealed his WBC count was elevated to 13,400. He had his last ESR on 03/02/2018 and it was 7. His blood gases revealed that he had a pH of 7.48, pCO2 of 35, and pO2 of 51. His latest chemistry panel revealed that his sodium was elevated to 155. His chloride was elevated to 118. His BUN was elevated to 41. His creatinine was elevated to 1.3. His glucose was elevated to 208. His total bilirubin was elevated at 2.8. His AST, ALT, and alkaline phosphatase were all elevated. His albumin was low at 2.2. His urine toxicology screen on admission revealed that tetrahydrocannabinols were present. His serologies were negative for HIV. 5. Further laboratory tests revealed a normal B12, Folate, TSH but the Hb A1C was elevated at 9.2%. 6. The CT of the brain done on 03/07/18 revealed atrophy and deep white matter disease but no acute pathology. 7. The EEG revealed a moderate toxic/metabolic encephalopathy. 8. The patient's history, neurological examination, laboratory data, EEG and imaging are most compatible with a severe toxic metabolic encephalopathy, which is multifactorial. The recent cardiac arrest has led to an anoxic/ischemic encephalopathy. Acute intracranial pathology has been excluded. Recommendations 1. Continue present management. 2. Keep the patient off all mind-altering drugs. 3. Correct toxic/metabolic imbalances the best possible. 4. Agree with LP to exclude meningoencephalitic process. 5. Observe closely in ICU setting. Dawit Marshall M.D., M.S.P.H. Dawit Marshall MD Mar 12, 2018 19:17
[2018-03-12] MEDS: Dyna-Hex 2% Top Sol 2oz TOPIC SCH (20:09)
--- NOTE | 2018-03-12 23:58 | Cardiology Progress Note ---
Assessment/Plan Assessment/Plan 1. Atrial fibrillation with controlled ventricular response, continue carvedilol and digoxin, will DC cardizem given negative inotropic activities. 2. Acute on chronic systolic and diastolic heart failure with LVEF at 25% with severe mitral regurgitation, continue carvedilol, digoxin and hydralazine, off diuretics due to hypernatremia. 3. Severe mitral regurgitation, afterload reduction with hydralazine. 4. Acute respiratory failure. Subjective Subjective Atrial fibrillation with controlled ventricular response at rate of 84. Intubated with FiO2 of 55%. Objective Last 24 Hour Vital Signs Date Time Temp Pulse Resp B/P (MAP) Pulse Ox O2 Delivery O2 Flow Rate FiO2 03/12/18 23:10 84 22 55 03/12/18 22:00 84 18 125/81 (96) 98 03/12/18 21:30 73 19 121/78 (92) 94 03/12/18 21:15 62 16 103/72 (82) 94 03/12/18 21:12 87 19 55 03/12/18 21:00 56 16 98/62 (74) 94 03/12/18 21:00 56 98/62 03/12/18 20:30 55 14 91/48 (62) 96 03/12/18 20:15 55 14 89/56 (67) 96 03/12/18 20:00 Mechanical Ventilator Mechanical Ventilator 03/12/18 20:00 59 03/12/18 20:00 99.2 59 14 103/68 (80) 95 03/12/18 19:27 89 20 55 03/12/18 19:07 115/64 03/12/18 19:00 55 15 115/64 (81) 98 03/12/18 18:05 106/66 03/12/18 18:00 79 20 106/66 (79) 96 03/12/18 17:58 79 131/73 03/12/18 17:16 78 15 60 03/12/18 17:00 77 22 131/73 (92) 96 03/12/18 16:00 Mechanical Ventilator Mechanical Ventilator 03/12/18 16:00 74 03/12/18 16:00 98.5 75 22 113/70 (84) 99 03/12/18 15:00 70 25 112/70 (84) 97 03/12/18 14:40 73 26 60 03/12/18 14:00 64 22 106/63 (77) 98 03/12/18 13:26 74 16 60 03/12/18 13:00 62 17 114/79 (91) 98 03/12/18 12:26 82 125/84 03/12/18 12:00 97.9 88 16 114/68 (83) 99 03/12/18 12:00 125/84 03/12/18 12:00 Mechanical Ventilator Mechanical Ventilator 03/12/18 12:00 88 03/12/18 11:00 84 17 121/75 (90) 100 03/12/18 10:39 87 14 60 03/12/18 10:00 76 17 116/69 (85) 98 03/12/18 10:00 116/69 03/12/18 09:25 80 16 60 03/12/18 09:18 83 03/12/18 09:00 83 107/77 03/12/18 09:00 76 15 107/77 (87) 100 03/12/18 08:00 98.5 84 16 104/70 (81) 100 03/12/18 08:00 89 03/12/18 08:00 60 03/12/18 08:00 Mechanical Ventilator Mechanical Ventilator 03/12/18 07:04 85 19 60 03/12/18 07:00 90 20 128/76 (93) 100 03/12/18 06:00 98.7 89 16 124/78 (93) 100 03/12/18 05:28 92 15 60 03/12/18 05:00 93 21 132/80 (97) 100 03/12/18 04:00 82 03/12/18 04:00 Mechanical Ventilator 03/12/18 04:00 99.1 92 21 140/81 (100) 100 03/12/18 03:19 86 17 60 03/12/18 03:00 86 20 126/82 (97) 100 03/12/18 02:00 85 21 111/77 (88) 99 03/12/18 01:16 89 18 60 03/12/18 01:00 86 20 109/77 (88) 100 03/12/18 00:00 99.1 88 22 138/110 (119) 100 03/12/18 00:00 123/80 03/12/18 00:00 86 123/80 03/12/18 00:00 Mechanical Ventilator 03/12/18 00:00 89 Intake and Output 03/11/18 03/12/18 18:59 06:59 Intake Total 1920.0 ml 1480 ml Output Total 1260 ml 1300 ml Balance 660.0 ml 180 ml Free Water 750 ml 750 ml IV Total 590.0 ml Tube Feeding 580 ml 730 ml Output Urine Total 1260 ml 1300 ml # Bowel Movements 4 6 2D Echo: LVEF 25%, Bi-atrial enlargement, Severe MR, RVSP 24 mmHg, RAP 15 mmHg Laboratory Tests Test 03/12/18 05:00 03/12/18 10:25 03/12/18 11:35 White Blood Count 11.3 K/UL (4.8-10.8) H Red Blood Count 5.34 M/UL (4.70-6.10) Hemoglobin 13.9 G/DL (14.2-18.0) L Hematocrit 43.7 % (42.0-52.0) Mean Corpuscular Volume 82 FL (80-99) Mean Corpuscular Hemoglobin 26.0 PG (27.0-31.0) L Mean Corpuscular Hemoglobin Concent 31.8 G/DL (32.0-36.0) L Red Cell Distribution Width 17.8 % (11.6-14.8) H Platelet Count 243 K/UL (150-450) Mean Platelet Volume 8.2 FL (6.5-10.1) Neutrophils (%) (Auto) 79.9 % (45.0-75.0) H Lymphocytes (%) (Auto) 10.4 % (20.0-45.0) L Monocytes (%) (Auto) 7.8 % (1.0-10.0) Eosinophils (%) (Auto) 1.4 % (0.0-3.0) Basophils (%) (Auto) 0.5 % (0.0-2.0) Sodium Level 155 MMOL/L (136-145) H Potassium Level 3.6 MMOL/L (3.5-5.1) Chloride Level 118 MMOL/L (98-107) H Carbon Dioxide Level 30 MMOL/L (21-32) Anion Gap 7 mmol/L (5-15) Blood Urea Nitrogen 38 mg/dL (7-18) H Creatinine 1.3 MG/DL (0.55-1.30) Estimat Glomerular Filtration Rate 57.3 mL/min (>60) Glucose Level 152 MG/DL (74-106) H Calcium Level 7.8 MG/DL (8.5-10.1) L Prothrombin Time 11.6 SEC (9.30-11.50) H Prothromb Time International Ratio 1.1 (0.9-1.1) Activated Partial Thromboplast Time 31 SEC (23-33) West Nile Virus IgG Antibody Pending West Nile Virus IgM Antibody Pending Objective HEENT: Atraumatic and normocephalic. Anicteric. Pupils are equal, round, and reactive to light and accommodation. Extraocular muscles intact. Intubated. NECK: JVP elevated about 5cm. No carotid bruits. Carotid upstrokes 2+ bilaterally. CARDIOVASCULAR: Normal S1, S2. Irregularly irregular rhythm. 2/6 Holosystolic murmur, gallop, or rub. LUNGS: Diminished BS both lungs. ABDOMEN: Soft, nontender, and nondistended. No hepatosplenomegaly. Positive bowel sounds. EXTREMITIES: There is 1+ bilateral lower extremity edema with ulcerations. Sudarshan Stuart MD Mar 12, 2018 23:58
[2018-03-13] VITALS (24 sets, daily range): BP systolic 103–145; BP diastolic 60–86
[2018-03-13] MEDS: NovoLOG Insulin Flexpen SUBQ SCH ×5 (00:42→23:56)
[2018-03-13 05:09] LABS: BASOPHILS % (AUTO) 0.5 % (0.0-2.0); EOSINOPHILS % (AUTO) 1.1 % (0.0-3.0); HEMATOCRIT 42.4 % (42.0-52.0); HEMOGLOBIN 13.4 G/DL (14.2-18.0); LYMPHOCYTES % (AUTO) 9.5 % (20.0-45.0); MEAN CORPUSCULAR VOLUME 83 FL (80-99); MONOCYTES % (AUTO) 6.5 % (1.0-10.0); NEUTROPHILS % (AUTO) 82.4 % (45.0-75.0); PLATELET COUNT 244 K/UL (150-450); RED BLOOD COUNT 5.13 M/UL (4.70-6.10); RED CELL DISTRIBUTION WIDTH 17.9 % (11.6-14.8); WHITE BLOOD COUNT 10.4 K/UL (4.8-10.8)
[2018-03-13] MEDS: HydrALAZINE 25mg tab ORAL SCH ×5 (05:19→23:53)
[2018-03-13 05:44] LABS: ALANINE AMINOTRANSFERASE 33 U/L (12-78); ALBUMIN 1.5 G/DL (3.4-5.0); ALBUMIN/GLOBULIN RATIO 0.3 (1.0-2.7); ALKALINE PHOSPHATASE 219 U/L (46-116); ANION GAP 7 mmol/L (5-15); ASPARTATE AMINO TRANSFERASE 23 U/L (15-37); BLOOD UREA NITROGEN 41 mg/dL (7-18); CALCIUM 7.7 MG/DL (8.5-10.1); CARBON DIOXIDE 28 MMOL/L (21-32); CHLORIDE 116 MMOL/L (98-107); CREATININE 1.4 MG/DL (0.55-1.30); PHOSPHORUS 2.9 MG/DL (2.5-4.9); POTASSIUM 3.7 MMOL/L (3.5-5.1); SODIUM 151 MMOL/L (136-145)
[2018-03-13 05:50] LABS: BILIRUBIN,DIRECT 2.4 MG/DL (0.0-0.3)
--- NOTE | 2018-03-13 08:08 | Cardiology Progress Note ---
Assessment/Plan Assessment/Plan 1. Atrial fibrillation with controlled ventricular response, continue carvedilol and digoxin. 2. Acute on chronic systolic and diastolic heart failure with LVEF at 25% with severe mitral regurgitation, continue carvedilol, digoxin and hydralazine, off diuretics due to hypernatremia. 3. Severe mitral regurgitation, afterload reduction with hydralazine. 4. Acute respiratory failure. Subjective Subjective Atrial fibrillation with controlled ventricular response at rate of 84. Intubated with FiO2 of 55%. Objective Last 24 Hour Vital Signs Date Time Temp Pulse Resp B/P (MAP) Pulse Ox O2 Delivery O2 Flow Rate FiO2 03/13/18 07:00 84 20 116/73 (87) 99 03/13/18 06:54 79 18 55 03/13/18 06:00 81 17 116/73 (87) 99 03/13/18 05:19 103/76 03/13/18 05:00 77 18 103/76 (85) 97 03/13/18 04:50 79 17 55 03/13/18 04:00 98.2 77 17 115/81 (92) 99 03/13/18 04:00 Mechanical Ventilator Mechanical Ventilator 03/13/18 04:00 74 03/13/18 03:29 77 18 55 03/13/18 03:00 77 17 134/80 (98) 99 03/13/18 02:00 74 18 130/72 (91) 100 03/13/18 01:39 74 19 55 03/13/18 01:00 76 19 111/71 (84) 100 03/13/18 00:00 Mechanical Ventilator Mechanical Ventilator 03/13/18 00:00 98.3 76 21 105/69 (81) 98 03/13/18 00:00 76 03/12/18 23:10 84 22 55 03/12/18 23:00 85 19 130/83 (99) 98 03/12/18 22:00 84 18 125/81 (96) 98 03/12/18 21:30 73 19 121/78 (92) 94 03/12/18 21:15 62 16 103/72 (82) 94 03/12/18 21:12 87 19 55 03/12/18 21:00 56 16 98/62 (74) 94 03/12/18 21:00 56 98/62 03/12/18 20:30 55 14 91/48 (62) 96 03/12/18 20:15 55 14 89/56 (67) 96 03/12/18 20:00 Mechanical Ventilator Mechanical Ventilator 03/12/18 20:00 59 03/12/18 20:00 99.2 59 14 103/68 (80) 95 03/12/18 19:27 89 20 55 03/12/18 19:07 115/64 03/12/18 19:00 55 15 115/64 (81) 98 03/12/18 18:05 106/66 03/12/18 18:00 79 20 106/66 (79) 96 03/12/18 17:58 79 131/73 03/12/18 17:16 78 15 60 03/12/18 17:00 77 22 131/73 (92) 96 03/12/18 16:00 Mechanical Ventilator Mechanical Ventilator 03/12/18 16:00 74 03/12/18 16:00 98.5 75 22 113/70 (84) 99 03/12/18 15:00 70 25 112/70 (84) 97 03/12/18 14:40 73 26 60 03/12/18 14:00 64 22 106/63 (77) 98 03/12/18 13:26 74 16 60 03/12/18 13:00 62 17 114/79 (91) 98 03/12/18 12:26 82 125/84 03/12/18 12:00 97.9 88 16 114/68 (83) 99 03/12/18 12:00 125/84 03/12/18 12:00 Mechanical Ventilator Mechanical Ventilator 03/12/18 12:00 88 03/12/18 11:00 84 17 121/75 (90) 100 03/12/18 10:39 87 14 60 03/12/18 10:00 76 17 116/69 (85) 98 03/12/18 10:00 116/69 03/12/18 09:25 80 16 60 03/12/18 09:18 83 03/12/18 09:00 83 107/77 03/12/18 09:00 76 15 107/77 (87) 100 Intake and Output 03/12/18 03/13/18 19:00 07:00 Intake Total 2265 ml 2859.632 ml Output Total 1655 ml 1160 ml Balance 610 ml 1699.632 ml Free Water 750 ml 500 ml IV Total 705 ml 1579.632 ml Tube Feeding 780 ml 780 ml Other 30 ml Output Urine Total 1655 ml 1160 ml 2D Echo: LVEF 25%, Bi-atrial enlargement, Severe MR, RVSP 24 mmHg, RAP 15 mmHg Laboratory Tests Test 03/12/18 10:25 03/12/18 11:35 03/13/18 04:59 03/13/18 07:42 Prothrombin Time 11.6 SEC (9.30-11.50) H Prothromb Time International Ratio 1.1 (0.9-1.1) Activated Partial Thromboplast Time 31 SEC (23-33) West Nile Virus IgG Antibody Pending Pending West Nile Virus IgM Antibody Pending Pending White Blood Count 10.4 K/UL (4.8-10.8) Red Blood Count 5.13 M/UL (4.70-6.10) Hemoglobin 13.4 G/DL (14.2-18.0) L Hematocrit 42.4 % (42.0-52.0) Mean Corpuscular Volume 83 FL (80-99) Mean Corpuscular Hemoglobin 26.0 PG (27.0-31.0) L Mean Corpuscular Hemoglobin Concent 31.5 G/DL (32.0-36.0) L Red Cell Distribution Width 17.9 % (11.6-14.8) H Platelet Count 244 K/UL (150-450) Mean Platelet Volume 7.7 FL (6.5-10.1) Neutrophils (%) (Auto) 82.4 % (45.0-75.0) H Lymphocytes (%) (Auto) 9.5 % (20.0-45.0) L Monocytes (%) (Auto) 6.5 % (1.0-10.0) Eosinophils (%) (Auto) 1.1 % (0.0-3.0) Basophils (%) (Auto) 0.5 % (0.0-2.0) Sodium Level 151 MMOL/L (136-145) H Potassium Level 3.7 MMOL/L (3.5-5.1) Chloride Level 116 MMOL/L (98-107) H Carbon Dioxide Level 28 MMOL/L (21-32) Anion Gap 7 mmol/L (5-15) Blood Urea Nitrogen 41 mg/dL (7-18) H Creatinine 1.4 MG/DL (0.55-1.30) H Estimat Glomerular Filtration Rate 52.6 mL/min (>60) Glucose Level 316 MG/DL (74-106) #H Calcium Level 7.7 MG/DL (8.5-10.1) L Phosphorus Level 2.9 MG/DL (2.5-4.9) Magnesium Level 2.4 MG/DL (1.8-2.4) Total Bilirubin 2.0 MG/DL (0.2-1.0) H Direct Bilirubin 2.4 MG/DL (0.0-0.3) H Aspartate Amino Transf (AST/SGOT) 23 U/L (15-37) Alanine Aminotransferase (ALT/SGPT) 33 U/L (12-78) Alkaline Phosphatase 219 U/L (46-116) H Total Protein 6.1 G/DL (6.4-8.2) L Albumin 1.5 G/DL (3.4-5.0) L Globulin 4.6 g/dL Albumin/Globulin Ratio 0.3 (1.0-2.7) L Arterial Blood pH 7.409 (7.350-7.450) Arterial Blood Partial Pressure CO2 40.7 mmHg (35.0-45.0) Arterial Blood Partial Pressure O2 57.6 mmHg (75.0-100.0) L Arterial Blood HCO3 25.2 mmol/L (22.0-26.0) Arterial Blood Oxygen Saturation 89.5 % (95-100) *L Arterial Blood Base Excess 0.5 (-2-2) Janes Test Positive Objective HEENT: Atraumatic and normocephalic. Anicteric. Pupils are equal, round, and reactive to light and accommodation. Extraocular muscles intact. Intubated. NECK: JVP elevated about 5cm. No carotid bruits. Carotid upstrokes 2+ bilaterally. CARDIOVASCULAR: Normal S1, S2. Irregularly irregular rhythm. 2/6 Holosystolic murmur, gallop, or rub. LUNGS: Diminished BS both lungs. ABDOMEN: Soft, nontender, and nondistended. No hepatosplenomegaly. Positive bowel sounds. EXTREMITIES: There is 1+ bilateral lower extremity edema with ulcerations. Sudarshan Stuart MD Mar 13, 2018 08:08
[2018-03-13] MEDS: Carvedilol 25mg Tab ORAL SCH ×2 (08:10→21:22)
[2018-03-13] MEDS: Pantoprazole Inj IV SCH (08:10)
[2018-03-13] MEDS: Digoxin 0.5mg/2ml Inj IVP SCH (08:11)
--- NOTE | 2018-03-13 09:07 | Infectious Diseases Prog Note ---
Assessment/Plan Assessment/Plan Assessment: s/p Code blue 03/08 Aspiration PNA -sp cx ESBL E.coli (S Zosyn, Erta) -03/08 cXR: Increasing right upper lung parenchymal opacity may reflect developing infiltrate in the right upper lobe. There is improved aeration of the right lung base -CXR: Improved aeration of the right lung, presumably representing improving atelectasis. Right lower lobe infiltrate. There may also be pleural fluid on the right. Bilateral interstitial disease. Probably on the basis of pulmonary edema. However, considerable central bronchial wall thickening suggests a significant chronic component B/l LE purulent cellulitis- legs with scratches (self inflicted) ; SP -wound cx MRSA -L foot tibia/fibula xray: No acute process -R foot tibia/fibula xray: No acute bony trauma Fever, SP Leukocytosis, SP Acute encephalopathy (currently on deep coma)- likely multifactorial due to metabolic/toxic, anoxic encephalopathy- lower suspicion for infection meningoencephalitic process Acute respiratory failure- due to Afib w/ RVR- n ow intubated 03/08 after Code blue Afib w/ RVR Elevated LFTs, SP - HIDA inconclusive but low prob for acute cholecysitis -HIDA: Questionable very small tracer collection in the region of the gallbladder fossa on delayed images, could represent partial filling of a nondistended gallbladder but this is not conclusive. Acute cholecystitis doubtful but not conclusively excluded based on these images and prior ultrasound, which showed a nondistended gallbladder. Patent common bile duct -Abd US: Cholelithiasis. Borderline gallbladder wall thickening, could indicate early acute cholecystitis changes. Consider hepatobiliary nuclear scan if there is high clinical suspicion. Negative for dilated ducts Incidental finding bilateral pleural effusions -acute hep panel, HIV sc neg ZHAO, improving DM2 HTN CHF Schizoaffective disorder Plan: -Continue empiric IV Vancomycin #03/16 for cellulitis -Cont Ertapenem d # / for ESBL E.coli PNA -03/09 SP ZOsyn #4 -03/06 SP Ceftriaxone #2 -03/03 SP Ancef #2 -03/01 SP Cefepime #2 -Plan for LP (patient cannot provide consent) -send for CSF analysis, culture, EBV/CMV/HSV/VZV PCR, VDRL, WNV ab\ -f/u cx -Monitor CBC/CMP, temperatures -wound care -Sx, GI, Neuro f/u Discussed with RN Subjective Allergies: Coded Allergies: No Known Allergies (Unverified , 02/16/18) Subjective remains intubated, FIo2 55% afebrile >72hrs leukocytosis resolved remains non responsive plan for LP Objective Vital Signs Last 24 Hour Vital Signs Date Time Temp Pulse Resp B/P (MAP) Pulse Ox O2 Delivery O2 Flow Rate FiO2 03/13/18 08:48 75 18 55 03/13/18 08:11 89 03/13/18 08:10 85 107/60 03/13/18 07:00 84 20 116/73 (87) 99 03/13/18 06:54 79 18 55 03/13/18 06:00 81 17 116/73 (87) 99 03/13/18 05:19 103/76 03/13/18 05:00 77 18 103/76 (85) 97 03/13/18 04:50 79 17 55 03/13/18 04:00 98.2 77 17 115/81 (92) 99 03/13/18 04:00 Mechanical Ventilator Mechanical Ventilator 03/13/18 04:00 74 03/13/18 03:29 77 18 55 03/13/18 03:00 77 17 134/80 (98) 99 03/13/18 02:00 74 18 130/72 (91) 100 03/13/18 01:39 74 19 55 03/13/18 01:00 76 19 111/71 (84) 100 03/13/18 00:00 Mechanical Ventilator Mechanical Ventilator 03/13/18 00:00 98.3 76 21 105/69 (81) 98 03/13/18 00:00 76 03/12/18 23:10 84 22 55 03/12/18 23:00 85 19 130/83 (99) 98 03/12/18 22:00 84 18 125/81 (96) 98 03/12/18 21:30 73 19 121/78 (92) 94 03/12/18 21:15 62 16 103/72 (82) 94 03/12/18 21:12 87 19 55 03/12/18 21:00 56 16 98/62 (74) 94 03/12/18 21:00 56 98/62 03/12/18 20:30 55 14 91/48 (62) 96 03/12/18 20:15 55 14 89/56 (67) 96 03/12/18 20:00 Mechanical Ventilator Mechanical Ventilator 03/12/18 20:00 59 03/12/18 20:00 99.2 59 14 103/68 (80) 95 03/12/18 19:27 89 20 55 03/12/18 19:07 115/64 03/12/18 19:00 55 15 115/64 (81) 98 03/12/18 18:05 106/66 03/12/18 18:00 79 20 106/66 (79) 96 03/12/18 17:58 79 131/73 03/12/18 17:16 78 15 60 03/12/18 17:00 77 22 131/73 (92) 96 03/12/18 16:00 Mechanical Ventilator Mechanical Ventilator 03/12/18 16:00 74 03/12/18 16:00 98.5 75 22 113/70 (84) 99 03/12/18 15:00 70 25 112/70 (84) 97 03/12/18 14:40 73 26 60 03/12/18 14:00 64 22 106/63 (77) 98 03/12/18 13:26 74 16 60 03/12/18 13:00 62 17 114/79 (91) 98 03/12/18 12:26 82 125/84 03/12/18 12:00 97.9 88 16 114/68 (83) 99 03/12/18 12:00 125/84 03/12/18 12:00 Mechanical Ventilator Mechanical Ventilator 03/12/18 12:00 88 03/12/18 11:00 84 17 121/75 (90) 100 03/12/18 10:39 87 14 60 03/12/18 10:00 76 17 116/69 (85) 98 03/12/18 10:00 116/69 03/12/18 09:25 80 16 60 03/12/18 09:18 83 Height (Feet): 6 Height (Inches): 0.00 Weight (Pounds): 270 Objective General Appearance: WD/WN Lines, tubes and drains: peripheral HEENT: normocephalic, atraumatic Neck: non-tender, normal alignment Respiratory/Chest: chest wall non-tender, lungs clear Breasts: no masses Cardiovascular/Chest: normal peripheral pulses Abdomen: normal bowel sounds, non tender Extremities: B/l leg erythema, swelling, with scratches and some minimal drainage Laboratory Tests Test 03/12/18 10:25 03/12/18 11:35 03/13/18 04:59 03/13/18 07:42 Prothrombin Time 11.6 SEC (9.30-11.50) H Prothromb Time International Ratio 1.1 (0.9-1.1) Activated Partial Thromboplast Time 31 SEC (23-33) West Nile Virus IgG Antibody Pending West Nile Virus IgM Antibody Pending White Blood Count 10.4 K/UL (4.8-10.8) Red Blood Count 5.13 M/UL (4.70-6.10) Hemoglobin 13.4 G/DL (14.2-18.0) L Hematocrit 42.4 % (42.0-52.0) Mean Corpuscular Volume 83 FL (80-99) Mean Corpuscular Hemoglobin 26.0 PG (27.0-31.0) L Mean Corpuscular Hemoglobin Concent 31.5 G/DL (32.0-36.0) L Red Cell Distribution Width 17.9 % (11.6-14.8) H Platelet Count 244 K/UL (150-450) Mean Platelet Volume 7.7 FL (6.5-10.1) Neutrophils (%) (Auto) 82.4 % (45.0-75.0) H Lymphocytes (%) (Auto) 9.5 % (20.0-45.0) L Monocytes (%) (Auto) 6.5 % (1.0-10.0) Eosinophils (%) (Auto) 1.1 % (0.0-3.0) Basophils (%) (Auto) 0.5 % (0.0-2.0) Sodium Level 151 MMOL/L (136-145) H Potassium Level 3.7 MMOL/L (3.5-5.1) Chloride Level 116 MMOL/L (98-107) H Carbon Dioxide Level 28 MMOL/L (21-32) Anion Gap 7 mmol/L (5-15) Blood Urea Nitrogen 41 mg/dL (7-18) H Creatinine 1.4 MG/DL (0.55-1.30) H Estimat Glomerular Filtration Rate 52.6 mL/min (>60) Glucose Level 316 MG/DL (74-106) #H Calcium Level 7.7 MG/DL (8.5-10.1) L Phosphorus Level 2.9 MG/DL (2.5-4.9) Magnesium Level 2.4 MG/DL (1.8-2.4) Total Bilirubin 2.0 MG/DL (0.2-1.0) H Direct Bilirubin 2.4 MG/DL (0.0-0.3) H Aspartate Amino Transf (AST/SGOT) 23 U/L (15-37) Alanine Aminotransferase (ALT/SGPT) 33 U/L (12-78) Alkaline Phosphatase 219 U/L (46-116) H Total Protein 6.1 G/DL (6.4-8.2) L Albumin 1.5 G/DL (3.4-5.0) L Globulin 4.6 g/dL Albumin/Globulin Ratio 0.3 (1.0-2.7) L Arterial Blood pH 7.409 (7.350-7.450) Arterial Blood Partial Pressure CO2 40.7 mmHg (35.0-45.0) Arterial Blood Partial Pressure O2 57.6 mmHg (75.0-100.0) L Arterial Blood HCO3 25.2 mmol/L (22.0-26.0) Arterial Blood Oxygen Saturation 89.5 % (95-100) *L Arterial Blood Base Excess 0.5 (-2-2) Janes Test Positive Current Medications Medications (Trade) Dose Ordered Sig/Roseline Route PRN Reason Start Time Stop Time Status Last Admin Dose Admin Acetaminophen (Tylenol) 650 mg Q4H PRN ORAL fever (temp>100.5F) 03/08/18 23:45 03/30/18 19:44 Carvedilol (Coreg) 50 mg EVERY 12 HOURS ORAL 03/13/18 09:00 04/12/18 08:59 Chlorhexidine Gluconate (Ashley-Hex 2%) 1 applic DAILY@2000 TOPIC 03/09/18 20:00 04/01/18 19:59 03/12/18 20:09 Dextrose 1,000 ml @ 100 mls/hr Q10H IV 03/12/18 10:00 04/11/18 09:59 03/13/18 05:19 Dextrose (Dextrose 50%) 25 ml Q30M PRN IV Hypoglycemia 03/08/18 23:00 03/30/18 13:59 Dextrose (Dextrose 50%) 50 ml Q30M PRN IV Hypoglycemia 03/08/18 23:00 03/30/18 13:59 Digoxin (Lanoxin) 0.125 mg DAILY IVP 03/09/18 09:00 04/02/18 14:21 03/13/18 08:11 Dopamine HCl/ Dextrose 250 ml @ 0 mls/hr Q24H IV 03/09/18 10:00 04/08/18 09:59 03/12/18 19:07 Ertapenem 1 gm/ Sodium Chloride 55 ml @ 110 mls/hr Q24H IVPB 03/09/18 12:00 03/18/18 11:59 03/12/18 12:25 Haloperidol Lactate (Haldol) 5 mg Q4H PRN IM Agitation 03/08/18 23:45 03/31/18 19:44 Hydralazine HCl (Apresoline) 25 mg Q6HR ORAL 03/09/18 00:00 04/04/18 18:21 03/13/18 05:19 Insulin Aspart (NovoLOG) EVERY 6 HOURS SUBQ 03/11/18 12:00 04/10/18 11:59 03/13/18 05:21 Lorazepam (Ativan 2mg/ml 1ml) 1 mg Q4H PRN IV For Anxiety 03/09/18 02:00 03/14/18 17:59 Lorazepam (Ativan 2mg/ml 1ml) 2 mg Q4H PRN IV For more severe Anxiety 03/08/18 23:15 03/15/18 23:14 03/12/18 16:55 Metoprolol Tartrate (Lopressor) 10 mg Q1H PRN IVP Heart rate >120 per minute 03/08/18 23:45 03/31/18 19:44 Morphine Sulfate (Morphine Sulfate) 4 mg Q4H PRN IVP For Pain 03/08/18 23:15 03/15/18 23:14 Nitroglycerin (Ntg) 0.4 mg Q5M PRN SL Prn Chest Pain 03/08/18 23:00 03/30/18 18:20 Ondansetron HCl (Zofran) 4 mg Q6H PRN IVP Nausea & Vomiting 03/09/18 01:45 04/05/18 19:44 Pantoprazole (Protonix) 40 mg DAILY IV 03/09/18 09:00 04/08/18 08:59 03/13/18 08:10 Polyethylene Glycol (Miralax) 17 gm DAILYPRN PRN ORAL Constipation 03/09/18 19:45 04/05/18 19:44 Temazepam (Restoril) 15 mg HSPRN PRN ORAL Insomnia 03/09/18 19:45 03/13/18 19:44 Vancomycin HCl (Vanco rx to dose) 1 ea DAILY PRN MISC rx protocol 03/09/18 09:00 04/05/18 19:44 Vancomycin/Sodium Chloride 250 ml @ 167 mls/hr Q12H IVPB 03/08/18 23:00 03/15/18 23:59 03/12/18 22:27 Susan Dennis M.D. Mar 13, 2018 09:07
--- NOTE | 2018-03-13 09:16 | Pulmonolgy Critical Care Note ---
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 psychologist, renal Discussed with: nurses, consultants, rehabilitation case coordinatornetwork services project manager - Objective Last 24 Hour Vital Signs Date Time Temp Pulse Resp B/P (MAP) Pulse Ox O2 Delivery O2 Flow Rate FiO2 03/13/18 08:48 75 18 55 03/13/18 08:11 89 03/13/18 08:10 85 107/60 03/13/18 08:00 70 03/13/18 07:00 84 20 116/73 (87) 99 03/13/18 06:54 79 18 55 03/13/18 06:00 81 17 116/73 (87) 99 03/13/18 05:19 103/76 03/13/18 05:00 77 18 103/76 (85) 97 03/13/18 04:50 79 17 55 03/13/18 04:00 98.2 77 17 115/81 (92) 99 03/13/18 04:00 Mechanical Ventilator Mechanical Ventilator 03/13/18 04:00 74 03/13/18 03:29 77 18 55 03/13/18 03:00 77 17 134/80 (98) 99 03/13/18 02:00 74 18 130/72 (91) 100 03/13/18 01:39 74 19 55 03/13/18 01:00 76 19 111/71 (84) 100 03/13/18 00:00 Mechanical Ventilator Mechanical Ventilator 03/13/18 00:00 98.3 76 21 105/69 (81) 98 03/13/18 00:00 76 03/12/18 23:10 84 22 55 03/12/18 23:00 85 19 130/83 (99) 98 03/12/18 22:00 84 18 125/81 (96) 98 03/12/18 21:30 73 19 121/78 (92) 94 03/12/18 21:15 62 16 103/72 (82) 94 03/12/18 21:12 87 19 55 03/12/18 21:00 56 16 98/62 (74) 94 03/12/18 21:00 56 98/62 03/12/18 20:30 55 14 91/48 (62) 96 03/12/18 20:15 55 14 89/56 (67) 96 03/12/18 20:00 Mechanical Ventilator Mechanical Ventilator 03/12/18 20:00 59 03/12/18 20:00 99.2 59 14 103/68 (80) 95 03/12/18 19:27 89 20 55 03/12/18 19:07 115/64 03/12/18 19:00 55 15 115/64 (81) 98 03/12/18 18:05 106/66 03/12/18 18:00 79 20 106/66 (79) 96 03/12/18 17:58 79 131/73 03/12/18 17:16 78 15 60 03/12/18 17:00 77 22 131/73 (92) 96 03/12/18 16:00 Mechanical Ventilator Mechanical Ventilator 03/12/18 16:00 74 03/12/18 16:00 98.5 75 22 113/70 (84) 99 03/12/18 15:00 70 25 112/70 (84) 97 03/12/18 14:40 73 26 60 03/12/18 14:00 64 22 106/63 (77) 98 03/12/18 13:26 74 16 60 03/12/18 13:00 62 17 114/79 (91) 98 03/12/18 12:26 82 125/84 03/12/18 12:00 97.9 88 16 114/68 (83) 99 03/12/18 12:00 125/84 03/12/18 12:00 Mechanical Ventilator Mechanical Ventilator 03/12/18 12:00 88 03/12/18 11:00 84 17 121/75 (90) 100 03/12/18 10:39 87 14 60 03/12/18 10:00 76 17 116/69 (85) 98 03/12/18 10:00 116/69 03/12/18 09:25 80 16 60 03/12/18 09:18 83 Status: obtunded Condition: critical HEENT: atraumatic Lungs: chest wall tender Heart: HR/BP stable Abdomen: soft, active bowel sounds Extremities: no C/C/E Decubiti: location Accucheck: 278 Critical Care - Subjective ROS Limited/Unobtainable: Yes Interval Events: no new changes in mental status Condition: critical EKG Rhythm: Sinus Rhythm FI02: 55 Vent Support Breath Rate: 14 Vent Support Mode: AC Vent Tidal Volume: 600 Sputum Amount: Scant PEEP: 5.0 PIP: 19 Tube Feeding Amount: 65 I&O: Intake and Output 03/12/18 03/13/18 19:00 07:00 Intake Total 2265 ml 2859.632 ml Output Total 1655 ml 1160 ml Balance 610 ml 1699.632 ml Free Water 750 ml 500 ml IV Total 705 ml 1579.632 ml Tube Feeding 780 ml 780 ml Other 30 ml Output Urine Total 1655 ml 1160 ml ET-Tube: 7.5 ET Position: 23 Labs: Laboratory Tests Test 03/12/18 10:25 03/12/18 11:35 03/13/18 04:59 03/13/18 07:42 Prothrombin Time 11.6 SEC (9.30-11.50) H Prothromb Time International Ratio 1.1 (0.9-1.1) Activated Partial Thromboplast Time 31 SEC (23-33) West Nile Virus IgG Antibody Pending West Nile Virus IgM Antibody Pending White Blood Count 10.4 K/UL (4.8-10.8) Red Blood Count 5.13 M/UL (4.70-6.10) Hemoglobin 13.4 G/DL (14.2-18.0) L Hematocrit 42.4 % (42.0-52.0) Mean Corpuscular Volume 83 FL (80-99) Mean Corpuscular Hemoglobin 26.0 PG (27.0-31.0) L Mean Corpuscular Hemoglobin Concent 31.5 G/DL (32.0-36.0) L Red Cell Distribution Width 17.9 % (11.6-14.8) H Platelet Count 244 K/UL (150-450) Mean Platelet Volume 7.7 FL (6.5-10.1) Neutrophils (%) (Auto) 82.4 % (45.0-75.0) H Lymphocytes (%) (Auto) 9.5 % (20.0-45.0) L Monocytes (%) (Auto) 6.5 % (1.0-10.0) Eosinophils (%) (Auto) 1.1 % (0.0-3.0) Basophils (%) (Auto) 0.5 % (0.0-2.0) Sodium Level 151 MMOL/L (136-145) H Potassium Level 3.7 MMOL/L (3.5-5.1) Chloride Level 116 MMOL/L (98-107) H Carbon Dioxide Level 28 MMOL/L (21-32) Anion Gap 7 mmol/L (5-15) Blood Urea Nitrogen 41 mg/dL (7-18) H Creatinine 1.4 MG/DL (0.55-1.30) H Estimat Glomerular Filtration Rate 52.6 mL/min (>60) Glucose Level 316 MG/DL (74-106) #H Calcium Level 7.7 MG/DL (8.5-10.1) L Phosphorus Level 2.9 MG/DL (2.5-4.9) Magnesium Level 2.4 MG/DL (1.8-2.4) Total Bilirubin 2.0 MG/DL (0.2-1.0) H Direct Bilirubin 2.4 MG/DL (0.0-0.3) H Aspartate Amino Transf (AST/SGOT) 23 U/L (15-37) Alanine Aminotransferase (ALT/SGPT) 33 U/L (12-78) Alkaline Phosphatase 219 U/L (46-116) H Total Protein 6.1 G/DL (6.4-8.2) L Albumin 1.5 G/DL (3.4-5.0) L Globulin 4.6 g/dL Albumin/Globulin Ratio 0.3 (1.0-2.7) L Arterial Blood pH 7.409 (7.350-7.450) Arterial Blood Partial Pressure CO2 40.7 mmHg (35.0-45.0) Arterial Blood Partial Pressure O2 57.6 mmHg (75.0-100.0) L Arterial Blood HCO3 25.2 mmol/L (22.0-26.0) Arterial Blood Oxygen Saturation 89.5 % (95-100) *L Arterial Blood Base Excess 0.5 (-2-2) Janes Test Positive Sunita Sahni MD Mar 13, 2018 09:16
[2018-03-13] MEDS: Vancomycin 750mg/NS 250ml 250 ML IVPB SCH ×2 (11:00→23:37)
--- NOTE | 2018-03-13 11:24 | Diagnostic Imaging Report ---
Indication: Dyspnea Comparison: 03/11/2018 A single view chest radiograph was obtained. Findings: Endotracheal tube position remains satisfactory. There is a groundglass opacity obscuring the right hemidiaphragm suspected of representing a pleural effusion. Underlying parenchymal disease also likely present either pneumonia or atelectasis. Heart size is stable. Pulmonary vascular prominence is mild and stable. IMPRESSION: Suspected right pleural effusion. Underlying pneumonia or atelectasis not excluded. No significant change from the prior examination.
[2018-03-13] MEDS: Ertapenem 1 GM in NS 55 ML IVPB SCH (12:00)
--- NOTE | 2018-03-13 13:16 | GI Progress Note ---
Assessment/Plan Problems: (1) Dysphagia ICD Codes: R13.10 - Dysphagia, unspecified SNOMED: 94235300, 376506210 (2) Drug abuse ICD Codes: F19.10 - Other psychoactive substance abuse, uncomplicated SNOMED: 93925443 (3) Encounter for PEG (percutaneous endoscopic gastrostomy) ICD Codes: Z43.1 - Encounter for attention to gastrostomy SNOMED: 764882727, 932207057 (4) Diastolic CHF, chronic ICD Codes: I50.32 - Chronic diastolic (congestive) heart failure SNOMED: 01828034, 012197160 (5) Abnormal LFTs ICD Codes: R94.5 - Abnormal results of liver function studies SNOMED: 046433042 Status: unchanged Status Narrative Discussed with Dr. Noe. Assessment/Plan us reviewed >> Cholelithiasis. Borderline gallbladder wall thickening, could indicate early acute cholecystitis changes. neg hepatitis panel HIDA negative LFTs still elevated, trend ST evaluation noted cont NGTFs, will consider PEG if no patient does not improve. patient now on Eliquis that needs to be held for 48 hours prior to any procedure electrolyte correction prn transfusions ppi fu labs The patient was seen and examined at bedside and all new and available data was reviewed in the patients chart. I agree with the above findings, impression and plan. (Patient seen earlier today. Signature stamp does not reflect patient encounter time.). - Khalif Noe MD Subjective Subjective limited Objective Last 24 Hour Vital Signs Date Time Temp Pulse Resp B/P (MAP) Pulse Ox O2 Delivery O2 Flow Rate FiO2 03/13/18 10:42 82 15 55 03/13/18 09:00 80 18 103/60 (74) 100 03/13/18 08:48 75 18 55 03/13/18 08:11 89 03/13/18 08:10 85 107/60 03/13/18 08:00 84 03/13/18 08:00 99.2 81 18 103/60 (74) 100 03/13/18 08:00 70 03/13/18 08:00 Mechanical Ventilator Mechanical Ventilator 03/13/18 07:00 84 20 116/73 (87) 99 03/13/18 06:54 79 18 55 03/13/18 06:00 81 17 116/73 (87) 99 03/13/18 05:19 103/76 03/13/18 05:00 77 18 103/76 (85) 97 03/13/18 04:50 79 17 55 03/13/18 04:00 98.2 77 17 115/81 (92) 99 03/13/18 04:00 Mechanical Ventilator Mechanical Ventilator 03/13/18 04:00 74 03/13/18 03:29 77 18 55 03/13/18 03:00 77 17 134/80 (98) 99 03/13/18 02:00 74 18 130/72 (91) 100 03/13/18 01:39 74 19 55 03/13/18 01:00 76 19 111/71 (84) 100 03/13/18 00:00 Mechanical Ventilator Mechanical Ventilator 03/13/18 00:00 98.3 76 21 105/69 (81) 98 03/13/18 00:00 76 03/12/18 23:10 84 22 55 03/12/18 23:00 85 19 130/83 (99) 98 03/12/18 22:00 84 18 125/81 (96) 98 03/12/18 21:30 73 19 121/78 (92) 94 03/12/18 21:15 62 16 103/72 (82) 94 03/12/18 21:12 87 19 55 03/12/18 21:00 56 16 98/62 (74) 94 03/12/18 21:00 56 98/62 03/12/18 20:30 55 14 91/48 (62) 96 03/12/18 20:15 55 14 89/56 (67) 96 03/12/18 20:00 Mechanical Ventilator Mechanical Ventilator 03/12/18 20:00 59 03/12/18 20:00 99.2 59 14 103/68 (80) 95 03/12/18 19:27 89 20 55 03/12/18 19:07 115/64 03/12/18 19:00 55 15 115/64 (81) 98 03/12/18 18:05 106/66 03/12/18 18:00 79 20 106/66 (79) 96 03/12/18 17:58 79 131/73 03/12/18 17:16 78 15 60 03/12/18 17:00 77 22 131/73 (92) 96 03/12/18 16:00 Mechanical Ventilator Mechanical Ventilator 03/12/18 16:00 74 03/12/18 16:00 98.5 75 22 113/70 (84) 99 03/12/18 15:00 70 25 112/70 (84) 97 03/12/18 14:40 73 26 60 03/12/18 14:00 64 22 106/63 (77) 98 03/12/18 13:26 74 16 60 Intake and Output 03/12/18 03/13/18 19:00 07:00 Intake Total 2265 ml 2859.632 ml Output Total 1655 ml 1160 ml Balance 610 ml 1699.632 ml Free Water 750 ml 500 ml IV Total 705 ml 1579.632 ml Tube Feeding 780 ml 780 ml Other 30 ml Output Urine Total 1655 ml 1160 ml Laboratory Tests Test 03/13/18 04:59 03/13/18 07:42 White Blood Count 10.4 K/UL (4.8-10.8) Red Blood Count 5.13 M/UL (4.70-6.10) Hemoglobin 13.4 G/DL (14.2-18.0) L Hematocrit 42.4 % (42.0-52.0) Mean Corpuscular Volume 83 FL (80-99) Mean Corpuscular Hemoglobin 26.0 PG (27.0-31.0) L Mean Corpuscular Hemoglobin Concent 31.5 G/DL (32.0-36.0) L Red Cell Distribution Width 17.9 % (11.6-14.8) H Platelet Count 244 K/UL (150-450) Mean Platelet Volume 7.7 FL (6.5-10.1) Neutrophils (%) (Auto) 82.4 % (45.0-75.0) H Lymphocytes (%) (Auto) 9.5 % (20.0-45.0) L Monocytes (%) (Auto) 6.5 % (1.0-10.0) Eosinophils (%) (Auto) 1.1 % (0.0-3.0) Basophils (%) (Auto) 0.5 % (0.0-2.0) Sodium Level 151 MMOL/L (136-145) H Potassium Level 3.7 MMOL/L (3.5-5.1) Chloride Level 116 MMOL/L (98-107) H Carbon Dioxide Level 28 MMOL/L (21-32) Anion Gap 7 mmol/L (5-15) Blood Urea Nitrogen 41 mg/dL (7-18) H Creatinine 1.4 MG/DL (0.55-1.30) H Estimat Glomerular Filtration Rate 52.6 mL/min (>60) Glucose Level 316 MG/DL (74-106) #H Calcium Level 7.7 MG/DL (8.5-10.1) L Phosphorus Level 2.9 MG/DL (2.5-4.9) Magnesium Level 2.4 MG/DL (1.8-2.4) Total Bilirubin 2.0 MG/DL (0.2-1.0) H Direct Bilirubin 2.4 MG/DL (0.0-0.3) H Aspartate Amino Transf (AST/SGOT) 23 U/L (15-37) Alanine Aminotransferase (ALT/SGPT) 33 U/L (12-78) Alkaline Phosphatase 219 U/L (46-116) H Total Protein 6.1 G/DL (6.4-8.2) L Albumin 1.5 G/DL (3.4-5.0) L Globulin 4.6 g/dL Albumin/Globulin Ratio 0.3 (1.0-2.7) L Arterial Blood pH 7.409 (7.350-7.450) Arterial Blood Partial Pressure CO2 40.7 mmHg (35.0-45.0) Arterial Blood Partial Pressure O2 57.6 mmHg (75.0-100.0) L Arterial Blood HCO3 25.2 mmol/L (22.0-26.0) Arterial Blood Oxygen Saturation 89.5 % (95-100) *L Arterial Blood Base Excess 0.5 (-2-2) Janes Test Positive Height (Feet): 6 Height (Inches): 0.00 Weight (Pounds): 270 General Appearance: no apparent distress, lethargic Cardiovascular: normal rate Respiratory/Chest: other - intubated Abdominal Exam: other - COYT Efraín Hernandez NP Mar 13, 2018 13:16
[2018-03-13] MEDS ORDERED: NS 275ml ONE (15:28)
[2018-03-13] MEDS ORDERED: Tubing IV Secondary IV ONE (15:28)
--- NOTE | 2018-03-13 15:31 | General Progress Note ---
Assessment/Plan Problem List: (1) Diabetes ICD Codes: E11.9 - Type 2 diabetes mellitus without complications SNOMED: 36415763 (2) Cellulitis ICD Codes: L03.90 - Cellulitis, unspecified SNOMED: 134618075 (3) Acute renal failure ICD Codes: N17.9 - Acute kidney failure, unspecified SNOMED: 36883492 (4) Rapid atrial fibrillation ICD Codes: I48.91 - Unspecified atrial fibrillation SNOMED: 741223838 Status: unchanged Assessment/Plan vent cardio f/u abx cbc bmp am Subjective Constitutional: Reports: weakness Allergies: Coded Allergies: No Known Allergies (Unverified , 02/16/18) All Systems: reviewed and negative except above Subjective intub sedated ng in icu Objective Last 24 Hour Vital Signs Date Time Temp Pulse Resp B/P (MAP) Pulse Ox O2 Delivery O2 Flow Rate FiO2 03/13/18 15:04 88 22 55 03/13/18 14:00 93 18 142/66 (91) 99 03/13/18 13:10 87 17 55 03/13/18 13:00 86 17 138/85 (102) 98 03/13/18 12:30 138/85 03/13/18 12:00 99.1 83 17 138/85 (102) 99 03/13/18 12:00 82 03/13/18 12:00 Mechanical Ventilator Mechanical Ventilator 03/13/18 11:00 81 17 142/82 (102) 99 03/13/18 10:42 82 15 55 03/13/18 10:00 76 17 125/84 (98) 100 03/13/18 09:00 80 18 103/60 (74) 100 03/13/18 08:48 75 18 55 03/13/18 08:11 89 03/13/18 08:10 85 107/60 03/13/18 08:00 84 03/13/18 08:00 99.2 81 18 103/60 (74) 100 03/13/18 08:00 70 03/13/18 08:00 Mechanical Ventilator Mechanical Ventilator 03/13/18 07:00 84 20 116/73 (87) 99 03/13/18 06:54 79 18 55 03/13/18 06:00 81 17 116/73 (87) 99 03/13/18 05:19 103/76 03/13/18 05:00 77 18 103/76 (85) 97 03/13/18 04:50 79 17 55 03/13/18 04:00 98.2 77 17 115/81 (92) 99 03/13/18 04:00 Mechanical Ventilator Mechanical Ventilator 03/13/18 04:00 74 03/13/18 03:29 77 18 55 03/13/18 03:00 77 17 134/80 (98) 99 03/13/18 02:00 74 18 130/72 (91) 100 03/13/18 01:39 74 19 55 03/13/18 01:00 76 19 111/71 (84) 100 03/13/18 00:00 Mechanical Ventilator Mechanical Ventilator 03/13/18 00:00 98.3 76 21 105/69 (81) 98 03/13/18 00:00 76 03/12/18 23:10 84 22 55 03/12/18 23:00 85 19 130/83 (99) 98 03/12/18 22:00 84 18 125/81 (96) 98 03/12/18 21:30 73 19 121/78 (92) 94 03/12/18 21:15 62 16 103/72 (82) 94 03/12/18 21:12 87 19 55 03/12/18 21:00 56 16 98/62 (74) 94 03/12/18 21:00 56 98/62 03/12/18 20:30 55 14 91/48 (62) 96 03/12/18 20:15 55 14 89/56 (67) 96 03/12/18 20:00 Mechanical Ventilator Mechanical Ventilator 03/12/18 20:00 59 03/12/18 20:00 99.2 59 14 103/68 (80) 95 03/12/18 19:27 89 20 55 03/12/18 19:07 115/64 03/12/18 19:00 55 15 115/64 (81) 98 03/12/18 18:05 106/66 03/12/18 18:00 79 20 106/66 (79) 96 03/12/18 17:58 79 131/73 03/12/18 17:16 78 15 60 03/12/18 17:00 77 22 131/73 (92) 96 03/12/18 16:00 Mechanical Ventilator Mechanical Ventilator 03/12/18 16:00 74 03/12/18 16:00 98.5 75 22 113/70 (84) 99 Intake and Output 03/12/18 03/13/18 19:00 07:00 Intake Total 2265 ml 2859.632 ml Output Total 1655 ml 1160 ml Balance 610 ml 1699.632 ml Free Water 750 ml 500 ml IV Total 705 ml 1579.632 ml Tube Feeding 780 ml 780 ml Other 30 ml Output Urine Total 1655 ml 1160 ml Laboratory Tests 03/13/18 04:59: White Blood Count 10.4, Red Blood Count 5.13, Hemoglobin 13.4L, Hematocrit 42.4 , Mean Corpuscular Volume 83, Mean Corpuscular Hemoglobin 26.0L, Mean Corpuscular Hemoglobin Concent 31.5L, Red Cell Distribution Width 17.9H, Platelet Count 244, Mean Platelet Volume 7.7, Neutrophils (%) (Auto) 82.4H, Lymphocytes (%) (Auto) 9.5L, Monocytes (%) (Auto) 6.5, Eosinophils (%) (Auto) 1.1, Basophils (%) (Auto) 0.5, Sodium Level 151H, Potassium Level 3.7, Chloride Level 116H, Carbon Dioxide Level 28, Anion Gap 7, Blood Urea Nitrogen 41H, Creatinine 1.4H, Estimat Glomerular Filtration Rate 52.6, Glucose Level 316#H, Calcium Level 7.7L, Phosphorus Level 2.9, Magnesium Level 2.4, Total Bilirubin 2.0H, Direct Bilirubin 2.4H, Aspartate Amino Transf (AST/SGOT) 23, Alanine Aminotransferase (ALT/SGPT) 33, Alkaline Phosphatase 219H, Total Protein 6.1L, Albumin 1.5L, Globulin 4.6, Albumin/Globulin Ratio 0.3L 03/13/18 07:42: Arterial Blood pH 7.409, Arterial Blood Partial Pressure CO2 40.7, Arterial Blood Partial Pressure O2 57.6L, Arterial Blood HCO3 25.2, Arterial Blood Oxygen Saturation 89.5*L, Arterial Blood Base Excess 0.5, Janes Test Positive Height (Feet): 6 Height (Inches): 0.00 Weight (Pounds): 270 General Appearance: lethargic EENT: normal ENT inspection Neck: normal alignment Cardiovascular: normal peripheral pulses, normal rate, regular rhythm Respiratory/Chest: chest wall non-tender, decreased breath sounds Abdomen: normal bowel sounds, non tender, soft Extremities: normal inspection Edema: no edema noted Arm (L), no edema noted Arm (R), no edema noted Leg (L), no edema noted Leg (R), no edema noted Pedal (L), no edema noted Pedal (R), no edema noted Generalized Neurologic: motor weakness Skin: normal pigmentation, warm/dry Mick Garcia DO Mar 13, 2018 15:31
--- NOTE | 2018-03-13 17:52 | Nephrology Progress Note ---
Assessment/Plan Assessment 1.hypernatremia 2.ZHAO 3.ckd 4.respiratory failure 5.CHF Plan free water via NG obtain u/a hold lasix monitoring renal function avoid NSAID replace electrolyte as need it Subjective Constitutional: Reports: no symptoms HEENT: Reports: no symptoms Neurologic/Psychiatric: Reports: no symptoms Subjective continue to be in ICU off pressor good urine out put unresponsive Objective Objective Last 24 Hour Vital Signs Date Time Temp Pulse Resp B/P (MAP) Pulse Ox O2 Delivery O2 Flow Rate FiO2 03/13/18 17:10 86 24 55 03/13/18 17:01 114/69 03/13/18 17:00 89 18 114/69 (84) 99 03/13/18 16:00 98.5 85 17 127/82 (97) 98 03/13/18 16:00 Mechanical Ventilator Mechanical Ventilator 03/13/18 15:04 88 22 55 03/13/18 15:00 85 18 117/70 (86) 99 03/13/18 14:00 93 18 142/66 (91) 99 03/13/18 13:50 98.5 03/13/18 13:10 87 17 55 03/13/18 13:00 86 17 138/85 (102) 98 03/13/18 12:30 138/85 03/13/18 12:00 99.1 83 17 138/85 (102) 99 03/13/18 12:00 82 03/13/18 12:00 Mechanical Ventilator Mechanical Ventilator 03/13/18 11:00 81 17 142/82 (102) 99 03/13/18 10:42 82 15 55 03/13/18 10:00 76 17 125/84 (98) 100 03/13/18 09:00 80 18 103/60 (74) 100 03/13/18 08:48 75 18 55 03/13/18 08:11 89 03/13/18 08:10 85 107/60 03/13/18 08:00 84 03/13/18 08:00 99.2 81 18 103/60 (74) 100 03/13/18 08:00 70 03/13/18 08:00 Mechanical Ventilator Mechanical Ventilator 03/13/18 07:00 84 20 116/73 (87) 99 03/13/18 06:54 79 18 55 03/13/18 06:00 81 17 116/73 (87) 99 03/13/18 05:19 103/76 03/13/18 05:00 77 18 103/76 (85) 97 03/13/18 04:50 79 17 55 03/13/18 04:00 98.2 77 17 115/81 (92) 99 03/13/18 04:00 Mechanical Ventilator Mechanical Ventilator 03/13/18 04:00 74 03/13/18 03:29 77 18 55 03/13/18 03:00 77 17 134/80 (98) 99 03/13/18 02:00 74 18 130/72 (91) 100 03/13/18 01:39 74 19 55 03/13/18 01:00 76 19 111/71 (84) 100 03/13/18 00:00 Mechanical Ventilator Mechanical Ventilator 03/13/18 00:00 98.3 76 21 105/69 (81) 98 03/13/18 00:00 76 03/12/18 23:10 84 22 55 03/12/18 23:00 85 19 130/83 (99) 98 03/12/18 22:00 84 18 125/81 (96) 98 03/12/18 21:30 73 19 121/78 (92) 94 03/12/18 21:15 62 16 103/72 (82) 94 03/12/18 21:12 87 19 55 03/12/18 21:00 56 16 98/62 (74) 94 03/12/18 21:00 56 98/62 03/12/18 20:30 55 14 91/48 (62) 96 03/12/18 20:15 55 14 89/56 (67) 96 03/12/18 20:00 Mechanical Ventilator Mechanical Ventilator 03/12/18 20:00 59 03/12/18 20:00 99.2 59 14 103/68 (80) 95 03/12/18 19:27 89 20 55 03/12/18 19:07 115/64 03/12/18 19:00 55 15 115/64 (81) 98 03/12/18 18:05 106/66 03/12/18 18:00 79 20 106/66 (79) 96 03/12/18 17:58 79 131/73 Intake and Output 03/12/18 03/13/18 19:00 07:00 Intake Total 2265 ml 2859.632 ml Output Total 1655 ml 1160 ml Balance 610 ml 1699.632 ml Free Water 750 ml 500 ml IV Total 705 ml 1579.632 ml Tube Feeding 780 ml 780 ml Other 30 ml Output Urine Total 1655 ml 1160 ml Laboratory Tests 03/13/18 04:59: White Blood Count 10.4, Red Blood Count 5.13, Hemoglobin 13.4L, Hematocrit 42.4 , Mean Corpuscular Volume 83, Mean Corpuscular Hemoglobin 26.0L, Mean Corpuscular Hemoglobin Concent 31.5L, Red Cell Distribution Width 17.9H, Platelet Count 244, Mean Platelet Volume 7.7, Neutrophils (%) (Auto) 82.4H, Lymphocytes (%) (Auto) 9.5L, Monocytes (%) (Auto) 6.5, Eosinophils (%) (Auto) 1.1, Basophils (%) (Auto) 0.5, Sodium Level 151H, Potassium Level 3.7, Chloride Level 116H, Carbon Dioxide Level 28, Anion Gap 7, Blood Urea Nitrogen 41H, Creatinine 1.4H, Estimat Glomerular Filtration Rate 52.6, Glucose Level 316#H, Calcium Level 7.7L, Phosphorus Level 2.9, Magnesium Level 2.4, Total Bilirubin 2.0H, Direct Bilirubin 2.4H, Aspartate Amino Transf (AST/SGOT) 23, Alanine Aminotransferase (ALT/SGPT) 33, Alkaline Phosphatase 219H, Total Protein 6.1L, Albumin 1.5L, Globulin 4.6, Albumin/Globulin Ratio 0.3L 03/13/18 07:42: Arterial Blood pH 7.409, Arterial Blood Partial Pressure CO2 40.7, Arterial Blood Partial Pressure O2 57.6L, Arterial Blood HCO3 25.2, Arterial Blood Oxygen Saturation 89.5*L, Arterial Blood Base Excess 0.5, Janes Test Positive Height (Feet): 6 Height (Inches): 0.00 Weight (Pounds): 270 Objective HEENT: Atraumatic and normocephalic. Anicteric. Pupils are equal, round, and reactive to light and accommodation. Extraocular muscles intact. Altered. NECK: JVP elevated about 5cm. No carotid bruits. Carotid upstrokes 2+ bilaterally. CARDIOVASCULAR: Normal S1, S2. Irregularly irregular rhythm. 2/6 Holosystolic murmur, gallop, or rub. LUNGS: Diminished BS both lungs. ABDOMEN: Soft, nontender, and nondistended. No hepatosplenomegaly. Positive bowel sounds. EXTREMITIES: There is 1+ bilateral lower extremity edema with ulcerations. Maryana Collier MD Mar 13, 2018 17:52
--- NOTE | 2018-03-13 17:54 | Neurology Progress Note ---
Interim History Interim History Interim History Mr. Cornejo has improved. He can be aroused. When aroused he can follow a few simple commands. He however is still unable to communicate. Review of Systems Neuro Review of Systems Unable to obtain. Objective Physical Exam Last Vital Signs Date Time Temp Pulse Resp B/P (MAP) Pulse Ox O2 Delivery O2 Flow Rate FiO2 03/13/18 17:10 86 24 55 03/13/18 17:01 114/69 03/13/18 17:00 99 03/13/18 16:00 98.5 03/13/18 16:00 Mechanical Ventilator Mechanical Ventilator 03/08/18 20:00 15.0 Laboratory Tests Test 03/13/18 04:59 03/13/18 07:42 White Blood Count 10.4 K/UL (4.8-10.8) Red Blood Count 5.13 M/UL (4.70-6.10) Hemoglobin 13.4 G/DL (14.2-18.0) L Hematocrit 42.4 % (42.0-52.0) Mean Corpuscular Volume 83 FL (80-99) Mean Corpuscular Hemoglobin 26.0 PG (27.0-31.0) L Mean Corpuscular Hemoglobin Concent 31.5 G/DL (32.0-36.0) L Red Cell Distribution Width 17.9 % (11.6-14.8) H Platelet Count 244 K/UL (150-450) Mean Platelet Volume 7.7 FL (6.5-10.1) Neutrophils (%) (Auto) 82.4 % (45.0-75.0) H Lymphocytes (%) (Auto) 9.5 % (20.0-45.0) L Monocytes (%) (Auto) 6.5 % (1.0-10.0) Eosinophils (%) (Auto) 1.1 % (0.0-3.0) Basophils (%) (Auto) 0.5 % (0.0-2.0) Sodium Level 151 MMOL/L (136-145) H Potassium Level 3.7 MMOL/L (3.5-5.1) Chloride Level 116 MMOL/L (98-107) H Carbon Dioxide Level 28 MMOL/L (21-32) Anion Gap 7 mmol/L (5-15) Blood Urea Nitrogen 41 mg/dL (7-18) H Creatinine 1.4 MG/DL (0.55-1.30) H Estimat Glomerular Filtration Rate 52.6 mL/min (>60) Glucose Level 316 MG/DL (74-106) #H Calcium Level 7.7 MG/DL (8.5-10.1) L Phosphorus Level 2.9 MG/DL (2.5-4.9) Magnesium Level 2.4 MG/DL (1.8-2.4) Total Bilirubin 2.0 MG/DL (0.2-1.0) H Direct Bilirubin 2.4 MG/DL (0.0-0.3) H Aspartate Amino Transf (AST/SGOT) 23 U/L (15-37) Alanine Aminotransferase (ALT/SGPT) 33 U/L (12-78) Alkaline Phosphatase 219 U/L (46-116) H Total Protein 6.1 G/DL (6.4-8.2) L Albumin 1.5 G/DL (3.4-5.0) L Globulin 4.6 g/dL Albumin/Globulin Ratio 0.3 (1.0-2.7) L Arterial Blood pH 7.409 (7.350-7.450) Arterial Blood Partial Pressure CO2 40.7 mmHg (35.0-45.0) Arterial Blood Partial Pressure O2 57.6 mmHg (75.0-100.0) L Arterial Blood HCO3 25.2 mmol/L (22.0-26.0) Arterial Blood Oxygen Saturation 89.5 % (95-100) *L Arterial Blood Base Excess 0.5 (-2-2) Janes Test Positive Neurologic Exam Objective PHYSICAL EXAMINATION: GENERAL: He is a well developed, well nourished, gentleman, lying in an ICU bed, connected to a ventilator via an priti-tracheal tube. HEAD: Normocephalic and atraumatic. EENT: Examination benign. NECK: No neck rigidity was observed. NEUROLOGIC EXAMINATION: MENTAL STATUS EXAMINATION: He could be aroused with vigorous vocal and deep painful stimuli. He followed simple commands inconsistently. Further mental status testing was impossible. SPEECH: Could not be tested. LANGUAGE: Could not be tested. CRANIAL NERVE EXAMINATION: II: He did not blink to threat. III, IV & : The external ocular movements were present on oculocephalic maneuvers. The pupils were 3 mm in diameter and did not react to light. V & VII: The corneal reflexes were subdued but equal. VIII: He did respond to sounds and had no nystagmus. IX & X: The gag reflex was absent. XI: The sternocleidomastoids and trapezii did not function. XII: He protruded his tongue on command. MOTOR SYSTEM: The tone was normal in all 4 extremities. Examination of muscle mass revealed no focal wasting. 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 Examination of power was impossible to perform because even on applying deep painful stimuli no movements were seen. SENSORY EXAMINATION: He did not respond to deep painful stimuli. REFLEXES: 0 at the biceps, triceps, brachioradialis, knees, and ankles. The right plantar response could not be tested as he had no toes, and the left plantar response was mute. COORDINATION, STANCE & GAIT: Could not be tested. Impression/Recommendations Diagnostic Impression 1. Mr. Dustin Cornejo is a 57-year-old, gentleman, of unknown handedness, who was hospitalized for right lower extremity cellulitis and then in the hospital deteriorated to a point where became quite altered with regards to his mental state on 03/05/2018 and was transferred to the ICU. He was noted to have atrial fibrillation with a rapid ventricular rate and shortness of breath related to hypoxic respiratory failure and then became agitated as a result of which he was given multiple doses of Ativan, Haldol, and morphine. 2. He has improved. He can be aroused. When aroused he can follow a few simple commands. He however is still unable to communicate. 3. On neurological examination, at this time, he can be aroused. He he follows commands inconsistently. He however does not blink to threat or respond to deep pain. He does not demonstrate any lateralizing findings. He has globally absent deep tendon reflexes, and the plantar response on the left side is mute. 4. His latest laboratory data on my initial evaluation revealed his WBC count was elevated to 13,400. He had his last ESR on 03/02/2018 and it was 7. His blood gases revealed that he had a pH of 7.48, pCO2 of 35, and pO2 of 51. His latest chemistry panel revealed that his sodium was elevated to 155. His chloride was elevated to 118. His BUN was elevated to 41. His creatinine was elevated to 1.3. His glucose was elevated to 208. His total bilirubin was elevated at 2.8. His AST, ALT, and alkaline phosphatase were all elevated. His albumin was low at 2.2. His urine toxicology screen on admission revealed that tetrahydrocannabinols were present. His serologies were negative for HIV. 5. Further laboratory tests revealed a normal B12, Folate, TSH but the Hb A1C was elevated at 9.2%. 6. The CT of the brain done on 03/07/18 revealed atrophy and deep white matter disease but no acute pathology. 7. The EEG revealed a moderate toxic/metabolic encephalopathy. 8. The patient's history, neurological examination, laboratory data, EEG and imaging are most compatible with a severe toxic metabolic encephalopathy, which is multifactorial. The recent cardiac arrest has led to an anoxic/ischemic encephalopathy. Acute intracranial pathology has been excluded. 9. His encephalopathy has improved today. Recommendations 1. Continue present management. 2. Keep the patient off all mind-altering drugs. 3. Correct toxic/metabolic imbalances the best possible. 4. Observe closely in ICU setting. Dawit Marshall M.D., M.S.P.H. Dawit Marshall MD Mar 13, 2018 17:54
[2018-03-13] MEDS: Dyna-Hex 2% Top Sol 2oz TOPIC SCH (19:50)
--- NOTE | 2018-03-13 21:53 | General Surgery Progress Note ---
General Surgery-Progress Note Subjective Additional Comments still remains critical in ICU. leukocytosis resolved. LFTs elevated. Objective Last 24 Hour Vital Signs Date Time Temp Pulse Resp B/P (MAP) Pulse Ox O2 Delivery O2 Flow Rate FiO2 03/13/18 21:22 95 145/85 03/13/18 21:14 95 15 55 03/13/18 21:00 86 03/13/18 20:00 Mechanical Ventilator Mechanical Ventilator 03/13/18 19:07 90 21 55 03/13/18 19:00 91 17 137/79 (98) 99 03/13/18 18:00 88 21 133/86 (102) 99 03/13/18 17:10 86 24 55 03/13/18 17:01 114/69 03/13/18 17:00 89 18 114/69 (84) 99 03/13/18 16:00 86 03/13/18 16:00 98.5 85 17 127/82 (97) 98 03/13/18 16:00 Mechanical Ventilator Mechanical Ventilator 03/13/18 15:04 88 22 55 03/13/18 15:00 85 18 117/70 (86) 99 03/13/18 14:00 93 18 142/66 (91) 99 03/13/18 13:50 98.5 03/13/18 13:10 87 17 55 03/13/18 13:00 86 17 138/85 (102) 98 03/13/18 12:30 138/85 03/13/18 12:00 99.1 83 17 138/85 (102) 99 03/13/18 12:00 82 03/13/18 12:00 Mechanical Ventilator Mechanical Ventilator 03/13/18 11:00 81 17 142/82 (102) 99 03/13/18 10:42 82 15 55 03/13/18 10:00 76 17 125/84 (98) 100 03/13/18 09:00 80 18 103/60 (74) 100 03/13/18 08:48 75 18 55 03/13/18 08:11 89 03/13/18 08:10 85 107/60 03/13/18 08:00 84 03/13/18 08:00 99.2 81 18 103/60 (74) 100 03/13/18 08:00 70 03/13/18 08:00 Mechanical Ventilator Mechanical Ventilator 03/13/18 07:00 84 20 116/73 (87) 99 03/13/18 06:54 79 18 55 03/13/18 06:00 81 17 116/73 (87) 99 03/13/18 05:19 103/76 03/13/18 05:00 77 18 103/76 (85) 97 03/13/18 04:50 79 17 55 03/13/18 04:00 98.2 77 17 115/81 (92) 99 03/13/18 04:00 Mechanical Ventilator Mechanical Ventilator 03/13/18 04:00 74 03/13/18 03:29 77 18 55 03/13/18 03:00 77 17 134/80 (98) 99 03/13/18 02:00 74 18 130/72 (91) 100 03/13/18 01:39 74 19 55 03/13/18 01:00 76 19 111/71 (84) 100 03/13/18 00:00 Mechanical Ventilator Mechanical Ventilator 03/13/18 00:00 98.3 76 21 105/69 (81) 98 03/13/18 00:00 76 03/12/18 23:10 84 22 55 03/12/18 23:00 85 19 130/83 (99) 98 03/12/18 22:00 84 18 125/81 (96) 98 I&O Intake and Output 03/12/18 03/13/18 18:59 06:59 Intake Total 2265 ml 2759.632 ml Output Total 1675 ml 1130 ml Balance 590 ml 1629.632 ml Free Water 750 ml 500 ml IV Total 705 ml 1479.632 ml Tube Feeding 780 ml 780 ml Other 30 ml Output Urine Total 1675 ml 1130 ml Dressing: other Wound: other Drains: other Cardiovascular: RSR Respiratory: decreased breath sounds Abdomen: soft, flat, present bowel sounds Extremities: other Laboratory Tests Test 03/13/18 04:59 03/13/18 07:42 White Blood Count 10.4 K/UL (4.8-10.8) Red Blood Count 5.13 M/UL (4.70-6.10) Hemoglobin 13.4 G/DL (14.2-18.0) L Hematocrit 42.4 % (42.0-52.0) Mean Corpuscular Volume 83 FL (80-99) Mean Corpuscular Hemoglobin 26.0 PG (27.0-31.0) L Mean Corpuscular Hemoglobin Concent 31.5 G/DL (32.0-36.0) L Red Cell Distribution Width 17.9 % (11.6-14.8) H Platelet Count 244 K/UL (150-450) Mean Platelet Volume 7.7 FL (6.5-10.1) Neutrophils (%) (Auto) 82.4 % (45.0-75.0) H Lymphocytes (%) (Auto) 9.5 % (20.0-45.0) L Monocytes (%) (Auto) 6.5 % (1.0-10.0) Eosinophils (%) (Auto) 1.1 % (0.0-3.0) Basophils (%) (Auto) 0.5 % (0.0-2.0) Sodium Level 151 MMOL/L (136-145) H Potassium Level 3.7 MMOL/L (3.5-5.1) Chloride Level 116 MMOL/L (98-107) H Carbon Dioxide Level 28 MMOL/L (21-32) Anion Gap 7 mmol/L (5-15) Blood Urea Nitrogen 41 mg/dL (7-18) H Creatinine 1.4 MG/DL (0.55-1.30) H Estimat Glomerular Filtration Rate 52.6 mL/min (>60) Glucose Level 316 MG/DL (74-106) #H Calcium Level 7.7 MG/DL (8.5-10.1) L Phosphorus Level 2.9 MG/DL (2.5-4.9) Magnesium Level 2.4 MG/DL (1.8-2.4) Total Bilirubin 2.0 MG/DL (0.2-1.0) H Direct Bilirubin 2.4 MG/DL (0.0-0.3) H Aspartate Amino Transf (AST/SGOT) 23 U/L (15-37) Alanine Aminotransferase (ALT/SGPT) 33 U/L (12-78) Alkaline Phosphatase 219 U/L (46-116) H Total Protein 6.1 G/DL (6.4-8.2) L Albumin 1.5 G/DL (3.4-5.0) L Globulin 4.6 g/dL Albumin/Globulin Ratio 0.3 (1.0-2.7) L Arterial Blood pH 7.409 (7.350-7.450) Arterial Blood Partial Pressure CO2 40.7 mmHg (35.0-45.0) Arterial Blood Partial Pressure O2 57.6 mmHg (75.0-100.0) L Arterial Blood HCO3 25.2 mmol/L (22.0-26.0) Arterial Blood Oxygen Saturation 89.5 % (95-100) *L Arterial Blood Base Excess 0.5 (-2-2) Janes Test Positive Plan Problems: (1) Abnormal LFTs Assessment & Plan: will obtain hepatitis panel US abdomen - Cholelithiasis; Borderline gallbladder wall thickening, could indicate early acute cholecystitis changes. Consider hepatobiliary nuclear scan if there is high clinical suspicion Negative for dilated ducts will monitor clinically for now HIDA noted hep panel negative hiv neg LFTs noted / improving no surgical intervention necessary at this time. -unlikely cholecystitis. likely contracted GB trend labs may consider repeat US abd (2) Cellulitis Assessment & Plan: chronic bilateral lower extremity wounds / ulcers acute on chronic cellulitis no abscess noted serous drainage multiple wounds that seem traumatic like cuts some small ulcers see wound photos for details -IV Abx as per ID -Keep legs elevated -apply skin protectant, hydrogel, non adherent dressings, and wrap ICU care and management (3) Decubital ulcer Assessment & Plan: patient with two small DTI to sacrum now. precautions being taken. patient being turned q2h. foam dressings and skin protectant has been in place. air mattress. unfortunately given condition and current state despite maximal effort there are unavoidable pressure wounds noted. will continue to maximal care thank you Garth Cornelius Mar 13, 2018 21:52
[2018-03-14] VITALS (24 sets, daily range): BP systolic 90–145; BP diastolic 54–109
[2018-03-14 05:16] LABS: BASOPHILS % (AUTO) 0.8 % (0.0-2.0); EOSINOPHILS % (AUTO) 1.6 % (0.0-3.0); HEMATOCRIT 41.3 % (42.0-52.0); HEMOGLOBIN 12.9 G/DL (14.2-18.0); LYMPHOCYTES % (AUTO) 14.2 % (20.0-45.0); MEAN CORPUSCULAR VOLUME 82 FL (80-99); MONOCYTES % (AUTO) 5.9 % (1.0-10.0); NEUTROPHILS % (AUTO) 77.5 % (45.0-75.0); PLATELET COUNT 245 K/UL (150-450); RED BLOOD COUNT 5.01 M/UL (4.70-6.10); RED CELL DISTRIBUTION WIDTH 17.2 % (11.6-14.8); WHITE BLOOD COUNT 10.7 K/UL (4.8-10.8)
[2018-03-14 05:43] LABS: ALANINE AMINOTRANSFERASE 32 U/L (12-78); ALBUMIN 1.6 G/DL (3.4-5.0); ALBUMIN/GLOBULIN RATIO 0.3 (1.0-2.7); ALKALINE PHOSPHATASE 225 U/L (46-116); ANION GAP 7 mmol/L (5-15); ASPARTATE AMINO TRANSFERASE 27 U/L (15-37); BILIRUBIN,TOTAL 1.6 MG/DL (0.2-1.0); BLOOD UREA NITROGEN 42 mg/dL (7-18); CALCIUM 7.9 MG/DL (8.5-10.1); CARBON DIOXIDE 29 MMOL/L (21-32); CHLORIDE 117 MMOL/L (98-107); CREATININE 1.4 MG/DL (0.55-1.30); PHOSPHORUS 2.6 MG/DL (2.5-4.9); POTASSIUM 3.7 MMOL/L (3.5-5.1); SODIUM 152 MMOL/L (136-145)
[2018-03-14] MEDS: HydrALAZINE 25mg tab ORAL SCH ×3 (05:49→18:11)
[2018-03-14] MEDS: NovoLOG Insulin Flexpen SUBQ SCH ×3 (05:52→18:18)
--- NOTE | 2018-03-14 09:38 | Pulmonolgy Critical Care Note ---
Critical Care - Asmt/Plan Problems: (1) Acute encephalopathy (2) Cellulitis (3) Acute renal failure (4) Diastolic CHF, chronic (5) Diabetes (6) Hyperglycemia (7) A-fib (8) Abnormal LFTs (9) Rapid atrial fibrillation Respiratory: monitor respiratory rate, adjust FIO2, CXR Renal: F/U I&O, keep IV fluid, check electrolytes Infectious Disease: check cultures Gastrointestinal: continue feedings/current rate Endocrine: monitor blood sugar, continue sliding scale insulin Hematologic: transfuse if hgb<8.5 Neurologic: keep patient comfortable Prophylaxis: Heparin Time Spent (Minutes): 40 Notes Reviewed: cardio, renal Discussed with: nurses, consultants, 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 - Objective Last 24 Hour Vital Signs Date Time Temp Pulse Resp B/P (MAP) Pulse Ox O2 Delivery O2 Flow Rate FiO2 03/14/18 09:00 94 19 139/100 (113) 99 03/14/18 08:52 93 14 55 03/14/18 08:00 Mechanical Ventilator Mechanical Ventilator 03/14/18 08:00 98.6 88 18 144/93 (110) 100 03/14/18 08:00 93 03/14/18 07:15 92 18 55 03/14/18 07:00 94 20 139/94 (109) 99 03/14/18 06:00 85 15 126/87 (100) 99 92 03/14/18 05:49 126/78 03/14/18 05:15 91 16 55 03/14/18 04:54 92 15 126/79 (95) 99 92 03/14/18 04:00 Mechanical Ventilator Mechanical Ventilator 03/14/18 04:00 86 03/14/18 04:00 98.6 88 15 124/84 (97) 99 88 03/14/18 03:00 92 17 55 03/14/18 03:00 86 20 126/80 (95) 98 86 03/14/18 02:00 84 15 90/67 (75) 98 84 03/14/18 01:18 88 27 55 03/14/18 01:00 88 20 131/77 (95) 98 88 03/14/18 00:00 85 03/14/18 00:00 98.4 88 17 119/64 (82) 98 88 03/14/18 00:00 Mechanical Ventilator Mechanical Ventilator 03/13/18 23:53 132/84 03/13/18 23:44 84 27 55 03/13/18 23:00 92 18 132/84 (100) 98 92 03/13/18 22:00 83 17 108/63 (78) 99 03/13/18 21:22 95 145/85 03/13/18 21:14 95 15 55 03/13/18 21:00 86 03/13/18 21:00 92 17 145/85 (105) 99 03/13/18 20:00 98.5 88 23 131/86 (101) 98 03/13/18 20:00 Mechanical Ventilator Mechanical Ventilator 03/13/18 19:07 90 21 55 03/13/18 19:00 91 17 137/79 (98) 99 03/13/18 18:00 88 21 133/86 (102) 99 03/13/18 17:10 86 24 55 03/13/18 17:01 114/69 03/13/18 17:00 89 18 114/69 (84) 99 03/13/18 16:00 86 03/13/18 16:00 98.5 85 17 127/82 (97) 98 03/13/18 16:00 Mechanical Ventilator Mechanical Ventilator 03/13/18 15:04 88 22 55 03/13/18 15:00 85 18 117/70 (86) 99 03/13/18 14:00 93 18 142/66 (91) 99 03/13/18 13:50 98.5 03/13/18 13:10 87 17 55 03/13/18 13:00 86 17 138/85 (102) 98 03/13/18 12:30 138/85 03/13/18 12:00 99.1 83 17 138/85 (102) 99 03/13/18 12:00 82 03/13/18 12:00 Mechanical Ventilator Mechanical Ventilator 03/13/18 11:00 81 17 142/82 (102) 99 03/13/18 10:42 82 15 55 03/13/18 10:00 76 17 125/84 (98) 100 Status: awake Condition: critical HEENT: atraumatic Lungs: clear Heart: HR/BP unstable Abdomen: soft, feeding tube Extremities: no C/C/E Micro: Microbiology Date/Time Source Procedure Growth Status 03/12/18 10:25 Indwelling Cath Urine Culture - Preliminary NO GROWTH AFTER 24 HOURS Resulted Accucheck: 208 Critical Care - Subjective ROS Limited/Unobtainable: Yes Condition: critical EKG Rhythm: Sinus Rhythm FI02: 55 Vent Support Breath Rate: 14 Vent Support Mode: AC Vent Tidal Volume: 600 Sputum Amount: Small PEEP: 5.0 PIP: 24 Tube Feeding Amount: 65 I&O: Intake and Output 03/13/18 03/14/18 19:00 07:00 Intake Total 3041 ml 2030 ml Output Total 1005 ml 770 ml Balance 2036 ml 1260 ml Free Water 750 ml 1000 ml IV Total 1511 ml 250 ml Tube Feeding 780 ml 780 ml Output Urine Total 1005 ml 770 ml # Voids 185 CXR: RLL infiltrate ET-Tube: 7.5 ET Position: 23 Labs: Laboratory Tests Test 03/14/18 05:00 03/14/18 08:20 White Blood Count 10.7 K/UL (4.8-10.8) Red Blood Count 5.01 M/UL (4.70-6.10) Hemoglobin 12.9 G/DL (14.2-18.0) L Hematocrit 41.3 % (42.0-52.0) L Mean Corpuscular Volume 82 FL (80-99) Mean Corpuscular Hemoglobin 25.7 PG (27.0-31.0) L Mean Corpuscular Hemoglobin Concent 31.2 G/DL (32.0-36.0) L Red Cell Distribution Width 17.2 % (11.6-14.8) H Platelet Count 245 K/UL (150-450) Mean Platelet Volume 8.6 FL (6.5-10.1) Neutrophils (%) (Auto) 77.5 % (45.0-75.0) H Lymphocytes (%) (Auto) 14.2 % (20.0-45.0) L Monocytes (%) (Auto) 5.9 % (1.0-10.0) Eosinophils (%) (Auto) 1.6 % (0.0-3.0) Basophils (%) (Auto) 0.8 % (0.0-2.0) Sodium Level 152 MMOL/L (136-145) H Potassium Level 3.7 MMOL/L (3.5-5.1) Chloride Level 117 MMOL/L (98-107) H Carbon Dioxide Level 29 MMOL/L (21-32) Anion Gap 7 mmol/L (5-15) Blood Urea Nitrogen 42 mg/dL (7-18) H Creatinine 1.4 MG/DL (0.55-1.30) H Estimat Glomerular Filtration Rate 52.6 mL/min (>60) Glucose Level 199 MG/DL (74-106) #H Calcium Level 7.9 MG/DL (8.5-10.1) L Phosphorus Level 2.6 MG/DL (2.5-4.9) Magnesium Level 2.4 MG/DL (1.8-2.4) Total Bilirubin 1.6 MG/DL (0.2-1.0) H Direct Bilirubin 1.0 MG/DL (0.0-0.3) H Aspartate Amino Transf (AST/SGOT) 27 U/L (15-37) Alanine Aminotransferase (ALT/SGPT) 32 U/L (12-78) Alkaline Phosphatase 225 U/L (46-116) H Total Protein 6.2 G/DL (6.4-8.2) L Albumin 1.6 G/DL (3.4-5.0) L Globulin 4.6 g/dL Albumin/Globulin Ratio 0.3 (1.0-2.7) L Arterial Blood pH 7.423 (7.350-7.450) Arterial Blood Partial Pressure CO2 40.8 mmHg (35.0-45.0) Arterial Blood Partial Pressure O2 134.6 mmHg (75.0-100.0) H Arterial Blood HCO3 26.0 mmol/L (22.0-26.0) Arterial Blood Oxygen Saturation 98.5 % (95-100) Arterial Blood Base Excess 1.5 (-2-2) Janes Test Positive Sunita Sahni MD Mar 14, 2018 09:38
[2018-03-14] MEDS: Pantoprazole Inj IV SCH (09:56)
[2018-03-14] MEDS: Carvedilol 25mg Tab ORAL SCH ×2 (09:56→21:11)
[2018-03-14] MEDS: Digoxin 0.5mg/2ml Inj IVP SCH (09:57)
[2018-03-14] MEDS: DOPamine 400mg/250ml 250 ML IV SCH (09:57)
--- NOTE | 2018-03-14 11:18 | Diagnostic Imaging Report ---
Indication: Dyspnea Technique: One view of the chest Comparison: 03/13/2018 Findings: Stable satisfactory positions of endotracheal and nasogastric tubes. Persistent right lung base opacity. There is increasing left infrahilar opacity. Impression: Persistent right basilar infiltrate and/or pleural effusion Increasing left infrahilar infiltrate
[2018-03-14] MEDS: Ertapenem 1 GM in NS 55 ML IVPB SCH (11:49)
[2018-03-14] MEDS: Vancomycin 750mg/NS 250ml 250 ML IVPB SCH ×2 (11:49→22:59)
--- NOTE | 2018-03-14 12:46 | General Progress Note ---
Assessment/Plan Problem List: (1) Diabetes ICD Codes: E11.9 - Type 2 diabetes mellitus without complications SNOMED: 17878257 (2) Cellulitis ICD Codes: L03.90 - Cellulitis, unspecified SNOMED: 033928067 (3) Acute renal failure ICD Codes: N17.9 - Acute kidney failure, unspecified SNOMED: 49475013 (4) Rapid atrial fibrillation ICD Codes: I48.91 - Unspecified atrial fibrillation SNOMED: 706429437 Status: unchanged Assessment/Plan vent cardio f/u abx cbc bmp am ltach eval Subjective Constitutional: Reports: weakness Allergies: Coded Allergies: No Known Allergies (Unverified , 02/16/18) All Systems: reviewed and negative except above Subjective intub sedated ng in icu Objective Last 24 Hour Vital Signs Date Time Temp Pulse Resp B/P (MAP) Pulse Ox O2 Delivery O2 Flow Rate FiO2 03/14/18 12:00 99.1 86 28 111/82 (92) 96 03/14/18 12:00 Mechanical Ventilator Mechanical Ventilator 03/14/18 12:00 78 03/14/18 11:50 93/68 03/14/18 11:10 40 03/14/18 11:05 85 19 40 03/14/18 11:00 86 17 93/68 (76) 96 03/14/18 10:00 96 20 145/109 (121) 100 03/14/18 09:57 103 03/14/18 09:56 103 130/100 03/14/18 09:00 94 19 139/100 (113) 99 03/14/18 08:52 93 14 55 03/14/18 08:00 Mechanical Ventilator Mechanical Ventilator 03/14/18 08:00 98.6 88 18 144/93 (110) 100 03/14/18 08:00 93 03/14/18 07:15 92 18 55 03/14/18 07:00 94 20 139/94 (109) 99 03/14/18 06:00 85 15 126/87 (100) 99 92 03/14/18 05:49 126/78 03/14/18 05:15 91 16 55 03/14/18 04:54 92 15 126/79 (95) 99 92 03/14/18 04:00 Mechanical Ventilator Mechanical Ventilator 03/14/18 04:00 86 03/14/18 04:00 98.6 88 15 124/84 (97) 99 88 03/14/18 03:00 92 17 55 03/14/18 03:00 86 20 126/80 (95) 98 86 03/14/18 02:00 84 15 90/67 (75) 98 84 03/14/18 01:18 88 27 55 03/14/18 01:00 88 20 131/77 (95) 98 88 03/14/18 00:00 85 03/14/18 00:00 98.4 88 17 119/64 (82) 98 88 03/14/18 00:00 Mechanical Ventilator Mechanical Ventilator 03/13/18 23:53 132/84 03/13/18 23:44 84 27 55 03/13/18 23:00 92 18 132/84 (100) 98 92 03/13/18 22:00 83 17 108/63 (78) 99 03/13/18 21:22 95 145/85 03/13/18 21:14 95 15 55 03/13/18 21:00 86 03/13/18 21:00 92 17 145/85 (105) 99 03/13/18 20:00 98.5 88 23 131/86 (101) 98 03/13/18 20:00 Mechanical Ventilator Mechanical Ventilator 03/13/18 19:07 90 21 55 03/13/18 19:00 91 17 137/79 (98) 99 03/13/18 18:00 88 21 133/86 (102) 99 03/13/18 17:10 86 24 55 03/13/18 17:01 114/69 03/13/18 17:00 89 18 114/69 (84) 99 03/13/18 16:00 86 03/13/18 16:00 98.5 85 17 127/82 (97) 98 03/13/18 16:00 Mechanical Ventilator Mechanical Ventilator 03/13/18 15:04 88 22 55 03/13/18 15:00 85 18 117/70 (86) 99 03/13/18 14:00 93 18 142/66 (91) 99 03/13/18 13:50 98.5 03/13/18 13:10 87 17 55 03/13/18 13:00 86 17 138/85 (102) 98 Intake and Output 03/13/18 03/14/18 19:00 07:00 Intake Total 3041 ml 2030 ml Output Total 1005 ml 785 ml Balance 2036 ml 1245 ml Free Water 750 ml 1000 ml IV Total 1511 ml 250 ml Tube Feeding 780 ml 780 ml Output Urine Total 1005 ml 785 ml # Voids 120 Laboratory Tests 03/14/18 05:00: White Blood Count 10.7, Red Blood Count 5.01, Hemoglobin 12.9L, Hematocrit 41.3L , Mean Corpuscular Volume 82, Mean Corpuscular Hemoglobin 25.7L, Mean Corpuscular Hemoglobin Concent 31.2L, Red Cell Distribution Width 17.2H, Platelet Count 245, Mean Platelet Volume 8.6, Neutrophils (%) (Auto) 77.5H, Lymphocytes (%) (Auto) 14.2L, Monocytes (%) (Auto) 5.9, Eosinophils (%) (Auto) 1.6, Basophils (%) (Auto) 0.8, Sodium Level 152H, Potassium Level 3.7, Chloride Level 117H, Carbon Dioxide Level 29, Anion Gap 7, Blood Urea Nitrogen 42H, Creatinine 1.4H, Estimat Glomerular Filtration Rate 52.6, Glucose Level 199#H, Calcium Level 7.9L, Phosphorus Level 2.6, Magnesium Level 2.4, Total Bilirubin 1.6H, Direct Bilirubin 1.0H, Aspartate Amino Transf (AST/SGOT) 27, Alanine Aminotransferase (ALT/SGPT) 32, Alkaline Phosphatase 225H, Total Protein 6.2L, Albumin 1.6L, Globulin 4.6, Albumin/Globulin Ratio 0.3L 03/14/18 08:20: Arterial Blood pH 7.423, Arterial Blood Partial Pressure CO2 40.8, Arterial Blood Partial Pressure O2 134.6H, Arterial Blood HCO3 26.0, Arterial Blood Oxygen Saturation 98.5, Arterial Blood Base Excess 1.5, Janes Test Positive Height (Feet): 6 Height (Inches): 0.00 Weight (Pounds): 270 General Appearance: lethargic EENT: normal ENT inspection Neck: normal alignment Cardiovascular: normal peripheral pulses, normal rate, regular rhythm Respiratory/Chest: chest wall non-tender, lungs clear, normal breath sounds Abdomen: normal bowel sounds, non tender, soft Extremities: normal inspection Edema: no edema noted Arm (L), no edema noted Arm (R), no edema noted Leg (L), no edema noted Leg (R), no edema noted Pedal (L), no edema noted Pedal (R), no edema noted Generalized Neurologic: motor weakness Skin: normal pigmentation, warm/dry Mick Garcia DO Mar 14, 2018 12:46
--- NOTE | 2018-03-14 13:03 | GI Progress Note ---
Assessment/Plan Problems: (1) Dysphagia ICD Codes: R13.10 - Dysphagia, unspecified SNOMED: 73931099, 881715972 (2) Drug abuse ICD Codes: F19.10 - Other psychoactive substance abuse, uncomplicated SNOMED: 04546053 (3) Encounter for PEG (percutaneous endoscopic gastrostomy) ICD Codes: Z43.1 - Encounter for attention to gastrostomy SNOMED: 331058057, 830782464 (4) Diastolic CHF, chronic ICD Codes: I50.32 - Chronic diastolic (congestive) heart failure SNOMED: 58621218, 400929521 (5) Abnormal LFTs ICD Codes: R94.5 - Abnormal results of liver function studies SNOMED: 101042958 Status: stable Status Narrative Discussed with Dr. Noe. Assessment/Plan us reviewed >> Cholelithiasis. Borderline gallbladder wall thickening, could indicate early acute cholecystitis changes. neg hepatitis panel HIDA negative LFTs still elevated, trend ST evaluation noted cont NGTFs, will consider PEG if no patient does not improve. patient now on Eliquis that needs to be held for 48 hours prior to any procedure electrolyte correction prn transfusions ppi fu labs The patient was seen and examined at bedside and all new and available data was reviewed in the patients chart. I agree with the above findings, impression and plan. (Patient seen earlier today. Signature stamp does not reflect patient encounter time.). - Khalif Noe MD Subjective Subjective limited Objective Last 24 Hour Vital Signs Date Time Temp Pulse Resp B/P (MAP) Pulse Ox O2 Delivery O2 Flow Rate FiO2 03/14/18 12:00 99.1 86 28 111/82 (92) 96 03/14/18 12:00 Mechanical Ventilator Mechanical Ventilator 03/14/18 12:00 78 03/14/18 11:50 93/68 03/14/18 11:10 40 03/14/18 11:05 85 19 40 03/14/18 11:00 86 17 93/68 (76) 96 03/14/18 10:00 96 20 145/109 (121) 100 03/14/18 09:57 103 03/14/18 09:56 103 130/100 03/14/18 09:00 94 19 139/100 (113) 99 03/14/18 08:52 93 14 55 03/14/18 08:00 Mechanical Ventilator Mechanical Ventilator 03/14/18 08:00 98.6 88 18 144/93 (110) 100 03/14/18 08:00 93 03/14/18 07:15 92 18 55 03/14/18 07:00 94 20 139/94 (109) 99 03/14/18 06:00 85 15 126/87 (100) 99 92 03/14/18 05:49 126/78 03/14/18 05:15 91 16 55 03/14/18 04:54 92 15 126/79 (95) 99 92 03/14/18 04:00 Mechanical Ventilator Mechanical Ventilator 03/14/18 04:00 86 03/14/18 04:00 98.6 88 15 124/84 (97) 99 88 03/14/18 03:00 92 17 55 03/14/18 03:00 86 20 126/80 (95) 98 86 03/14/18 02:00 84 15 90/67 (75) 98 84 03/14/18 01:18 88 27 55 03/14/18 01:00 88 20 131/77 (95) 98 88 03/14/18 00:00 85 03/14/18 00:00 98.4 88 17 119/64 (82) 98 88 03/14/18 00:00 Mechanical Ventilator Mechanical Ventilator 03/13/18 23:53 132/84 03/13/18 23:44 84 27 55 03/13/18 23:00 92 18 132/84 (100) 98 92 03/13/18 22:00 83 17 108/63 (78) 99 03/13/18 21:22 95 145/85 03/13/18 21:14 95 15 55 03/13/18 21:00 86 03/13/18 21:00 92 17 145/85 (105) 99 03/13/18 20:00 98.5 88 23 131/86 (101) 98 03/13/18 20:00 Mechanical Ventilator Mechanical Ventilator 03/13/18 19:07 90 21 55 03/13/18 19:00 91 17 137/79 (98) 99 03/13/18 18:00 88 21 133/86 (102) 99 03/13/18 17:10 86 24 55 03/13/18 17:01 114/69 03/13/18 17:00 89 18 114/69 (84) 99 03/13/18 16:00 86 03/13/18 16:00 98.5 85 17 127/82 (97) 98 03/13/18 16:00 Mechanical Ventilator Mechanical Ventilator 03/13/18 15:04 88 22 55 03/13/18 15:00 85 18 117/70 (86) 99 03/13/18 14:00 93 18 142/66 (91) 99 03/13/18 13:50 98.5 03/13/18 13:10 87 17 55 03/13/18 13:00 86 17 138/85 (102) 98 Intake and Output 03/13/18 03/14/18 19:00 07:00 Intake Total 3041 ml 2030 ml Output Total 1005 ml 785 ml Balance 2036 ml 1245 ml Free Water 750 ml 1000 ml IV Total 1511 ml 250 ml Tube Feeding 780 ml 780 ml Output Urine Total 1005 ml 785 ml # Voids 120 Laboratory Tests Test 03/14/18 05:00 03/14/18 08:20 White Blood Count 10.7 K/UL (4.8-10.8) Red Blood Count 5.01 M/UL (4.70-6.10) Hemoglobin 12.9 G/DL (14.2-18.0) L Hematocrit 41.3 % (42.0-52.0) L Mean Corpuscular Volume 82 FL (80-99) Mean Corpuscular Hemoglobin 25.7 PG (27.0-31.0) L Mean Corpuscular Hemoglobin Concent 31.2 G/DL (32.0-36.0) L Red Cell Distribution Width 17.2 % (11.6-14.8) H Platelet Count 245 K/UL (150-450) Mean Platelet Volume 8.6 FL (6.5-10.1) Neutrophils (%) (Auto) 77.5 % (45.0-75.0) H Lymphocytes (%) (Auto) 14.2 % (20.0-45.0) L Monocytes (%) (Auto) 5.9 % (1.0-10.0) Eosinophils (%) (Auto) 1.6 % (0.0-3.0) Basophils (%) (Auto) 0.8 % (0.0-2.0) Sodium Level 152 MMOL/L (136-145) H Potassium Level 3.7 MMOL/L (3.5-5.1) Chloride Level 117 MMOL/L (98-107) H Carbon Dioxide Level 29 MMOL/L (21-32) Anion Gap 7 mmol/L (5-15) Blood Urea Nitrogen 42 mg/dL (7-18) H Creatinine 1.4 MG/DL (0.55-1.30) H Estimat Glomerular Filtration Rate 52.6 mL/min (>60) Glucose Level 199 MG/DL (74-106) #H Calcium Level 7.9 MG/DL (8.5-10.1) L Phosphorus Level 2.6 MG/DL (2.5-4.9) Magnesium Level 2.4 MG/DL (1.8-2.4) Total Bilirubin 1.6 MG/DL (0.2-1.0) H Direct Bilirubin 1.0 MG/DL (0.0-0.3) H Aspartate Amino Transf (AST/SGOT) 27 U/L (15-37) Alanine Aminotransferase (ALT/SGPT) 32 U/L (12-78) Alkaline Phosphatase 225 U/L (46-116) H Total Protein 6.2 G/DL (6.4-8.2) L Albumin 1.6 G/DL (3.4-5.0) L Globulin 4.6 g/dL Albumin/Globulin Ratio 0.3 (1.0-2.7) L Arterial Blood pH 7.423 (7.350-7.450) Arterial Blood Partial Pressure CO2 40.8 mmHg (35.0-45.0) Arterial Blood Partial Pressure O2 134.6 mmHg (75.0-100.0) H Arterial Blood HCO3 26.0 mmol/L (22.0-26.0) Arterial Blood Oxygen Saturation 98.5 % (95-100) Arterial Blood Base Excess 1.5 (-2-2) Janes Test Positive Height (Feet): 6 Height (Inches): 0.00 Weight (Pounds): 270 General Appearance: no apparent distress Cardiovascular: normal rate Respiratory/Chest: no respiratory distress, other - intubated Abdominal Exam: normal bowel sounds, non tender, soft, other - NGT Efraín Hernandez NP Mar 14, 2018 13:03
--- NOTE | 2018-03-14 15:29 | Infectious Diseases Prog Note ---
Assessment/Plan Assessment/Plan Assessment: s/p Code blue 03/08 Aspiration PNA -sp cx ESBL E.coli (S Zosyn, Erta) -03/14 CXR: Persistent right basilar infiltrate and/or pleural effusion. Increasing left infrahilar infiltrate -03/08 cXR: Increasing right upper lung parenchymal opacity may reflect developing infiltrate in the right upper lobe. There is improved aeration of the right lung base -CXR: Improved aeration of the right lung, presumably representing improving atelectasis. Right lower lobe infiltrate. There may also be pleural fluid on the right. Bilateral interstitial disease. Probably on the basis of pulmonary edema. However, considerable central bronchial wall thickening suggests a significant chronic component B/l LE purulent cellulitis- legs with scratches (self inflicted) ; SP -wound cx MRSA -L foot tibia/fibula xray: No acute process -R foot tibia/fibula xray: No acute bony trauma Fever, SP Leukocytosis, SP Acute encephalopathy (currently on deep coma)- likely multifactorial due to metabolic/toxic, anoxic encephalopathy- lower suspicion for infection meningoencephalitic process Acute respiratory failure- due to Afib w/ RVR- n ow intubated 03/08 after Code blue Afib w/ RVR Elevated LFTs, SP - HIDA inconclusive but low prob for acute cholecysitis -HIDA: Questionable very small tracer collection in the region of the gallbladder fossa on delayed images, could represent partial filling of a nondistended gallbladder but this is not conclusive. Acute cholecystitis doubtful but not conclusively excluded based on these images and prior ultrasound, which showed a nondistended gallbladder. Patent common bile duct -Abd US: Cholelithiasis. Borderline gallbladder wall thickening, could indicate early acute cholecystitis changes. Consider hepatobiliary nuclear scan if there is high clinical suspicion. Negative for dilated ducts Incidental finding bilateral pleural effusions -acute hep panel, HIV sc neg ZHAO, improving DM2 HTN CHF Schizoaffective disorder Plan: -Continue empiric IV Vancomycin #13/ for cellulitis -Cont Ertapenem d # / for ESBL E.coli PNA -03/09 SP ZOsyn #4 -03/06 SP Ceftriaxone #2 -03/03 SP Ancef #2 -03/01 SP Cefepime #2 -Plan for LP (patient cannot provide consent) -send for CSF analysis, culture, EBV/CMV/HSV/VZV PCR, VDRL, WNV ab\ -f/u cx -Monitor CBC/CMP, temperatures -wound care -Sx, GI, Neuro f/u Discussed with RN Subjective Allergies: Coded Allergies: No Known Allergies (Unverified , 02/16/18) Subjective remains intubated, FIo2 40% afebrile no leukocytosis more awake Objective Vital Signs Last 24 Hour Vital Signs Date Time Temp Pulse Resp B/P (MAP) Pulse Ox O2 Delivery O2 Flow Rate FiO2 03/14/18 15:00 87 15 141/85 (103) 97 03/14/18 14:51 86 19 40 03/14/18 14:00 89 21 122/87 (99) 97 03/14/18 13:21 89 18 40 03/14/18 13:20 40 03/14/18 13:00 87 20 135/79 (97) 96 03/14/18 12:00 99.1 86 28 111/82 (92) 96 03/14/18 12:00 Mechanical Ventilator Mechanical Ventilator 03/14/18 12:00 78 03/14/18 11:50 93/68 03/14/18 11:10 40 03/14/18 11:05 85 19 40 03/14/18 11:00 86 17 93/68 (76) 96 03/14/18 10:00 96 20 145/109 (121) 100 03/14/18 09:57 103 03/14/18 09:56 103 130/100 03/14/18 09:00 94 19 139/100 (113) 99 03/14/18 08:52 93 14 55 03/14/18 08:00 70 03/14/18 08:00 Mechanical Ventilator Mechanical Ventilator 03/14/18 08:00 98.6 88 18 144/93 (110) 100 03/14/18 08:00 93 03/14/18 07:15 92 18 55 03/14/18 07:00 94 20 139/94 (109) 99 03/14/18 06:00 85 15 126/87 (100) 99 92 03/14/18 05:49 126/78 03/14/18 05:15 91 16 55 03/14/18 04:54 92 15 126/79 (95) 99 92 03/14/18 04:00 Mechanical Ventilator Mechanical Ventilator 03/14/18 04:00 86 03/14/18 04:00 98.6 88 15 124/84 (97) 99 88 03/14/18 03:00 92 17 55 03/14/18 03:00 86 20 126/80 (95) 98 86 03/14/18 02:00 84 15 90/67 (75) 98 84 03/14/18 01:18 88 27 55 03/14/18 01:00 88 20 131/77 (95) 98 88 03/14/18 00:00 85 03/14/18 00:00 98.4 88 17 119/64 (82) 98 88 03/14/18 00:00 Mechanical Ventilator Mechanical Ventilator 03/13/18 23:53 132/84 03/13/18 23:44 84 27 55 03/13/18 23:00 92 18 132/84 (100) 98 92 03/13/18 22:00 83 17 108/63 (78) 99 03/13/18 21:22 95 145/85 03/13/18 21:14 95 15 55 03/13/18 21:00 86 03/13/18 21:00 92 17 145/85 (105) 99 03/13/18 20:00 98.5 88 23 131/86 (101) 98 03/13/18 20:00 Mechanical Ventilator Mechanical Ventilator 03/13/18 19:07 90 21 55 03/13/18 19:00 91 17 137/79 (98) 99 03/13/18 18:00 88 21 133/86 (102) 99 03/13/18 17:10 86 24 55 03/13/18 17:01 114/69 03/13/18 17:00 89 18 114/69 (84) 99 03/13/18 16:00 86 03/13/18 16:00 98.5 85 17 127/82 (97) 98 03/13/18 16:00 Mechanical Ventilator Mechanical Ventilator Height (Feet): 6 Height (Inches): 0.00 Weight (Pounds): 270 Objective General Appearance: WD/WN Lines, tubes and drains: peripheral HEENT: normocephalic, atraumatic Neck: non-tender, normal alignment Respiratory/Chest: chest wall non-tender, lungs clear Breasts: no masses Cardiovascular/Chest: normal peripheral pulses Abdomen: normal bowel sounds, non tender Extremities: B/l leg erythema, swelling, with scratches and some minimal drainage Microbiology Date/Time Source Procedure Growth Status 03/12/18 10:25 Indwelling Cath Urine Culture - Final NO GROWTH AFTER 48 HOURS Complete Laboratory Tests Test 03/14/18 05:00 03/14/18 08:20 White Blood Count 10.7 K/UL (4.8-10.8) Red Blood Count 5.01 M/UL (4.70-6.10) Hemoglobin 12.9 G/DL (14.2-18.0) L Hematocrit 41.3 % (42.0-52.0) L Mean Corpuscular Volume 82 FL (80-99) Mean Corpuscular Hemoglobin 25.7 PG (27.0-31.0) L Mean Corpuscular Hemoglobin Concent 31.2 G/DL (32.0-36.0) L Red Cell Distribution Width 17.2 % (11.6-14.8) H Platelet Count 245 K/UL (150-450) Mean Platelet Volume 8.6 FL (6.5-10.1) Neutrophils (%) (Auto) 77.5 % (45.0-75.0) H Lymphocytes (%) (Auto) 14.2 % (20.0-45.0) L Monocytes (%) (Auto) 5.9 % (1.0-10.0) Eosinophils (%) (Auto) 1.6 % (0.0-3.0) Basophils (%) (Auto) 0.8 % (0.0-2.0) Sodium Level 152 MMOL/L (136-145) H Potassium Level 3.7 MMOL/L (3.5-5.1) Chloride Level 117 MMOL/L (98-107) H Carbon Dioxide Level 29 MMOL/L (21-32) Anion Gap 7 mmol/L (5-15) Blood Urea Nitrogen 42 mg/dL (7-18) H Creatinine 1.4 MG/DL (0.55-1.30) H Estimat Glomerular Filtration Rate 52.6 mL/min (>60) Glucose Level 199 MG/DL (74-106) #H Calcium Level 7.9 MG/DL (8.5-10.1) L Phosphorus Level 2.6 MG/DL (2.5-4.9) Magnesium Level 2.4 MG/DL (1.8-2.4) Total Bilirubin 1.6 MG/DL (0.2-1.0) H Direct Bilirubin 1.0 MG/DL (0.0-0.3) H Aspartate Amino Transf (AST/SGOT) 27 U/L (15-37) Alanine Aminotransferase (ALT/SGPT) 32 U/L (12-78) Alkaline Phosphatase 225 U/L (46-116) H Total Protein 6.2 G/DL (6.4-8.2) L Albumin 1.6 G/DL (3.4-5.0) L Globulin 4.6 g/dL Albumin/Globulin Ratio 0.3 (1.0-2.7) L Arterial Blood pH 7.423 (7.350-7.450) Arterial Blood Partial Pressure CO2 40.8 mmHg (35.0-45.0) Arterial Blood Partial Pressure O2 134.6 mmHg (75.0-100.0) H Arterial Blood HCO3 26.0 mmol/L (22.0-26.0) Arterial Blood Oxygen Saturation 98.5 % (95-100) Arterial Blood Base Excess 1.5 (-2-2) Janes Test Positive Current Medications Medications (Trade) Dose Ordered Sig/Roseline Route PRN Reason Start Time Stop Time Status Last Admin Dose Admin Acetaminophen (Tylenol) 650 mg Q4H PRN ORAL fever (temp>100.5F) 03/08/18 23:45 03/30/18 19:44 03/13/18 13:20 Carvedilol (Coreg) 50 mg EVERY 12 HOURS ORAL 03/13/18 09:00 04/12/18 08:59 03/14/18 09:56 Chlorhexidine Gluconate (Ashley-Hex 2%) 1 applic DAILY@2000 TOPIC 03/09/18 20:00 04/01/18 19:59 03/13/18 19:50 Dextrose (Dextrose 50%) 25 ml Q30M PRN IV Hypoglycemia 03/08/18 23:00 03/30/18 13:59 Dextrose (Dextrose 50%) 50 ml Q30M PRN IV Hypoglycemia 03/08/18 23:00 03/30/18 13:59 Digoxin (Lanoxin) 0.125 mg DAILY IVP 03/09/18 09:00 04/02/18 14:21 03/14/18 09:57 Dopamine HCl/ Dextrose 250 ml @ 0 mls/hr Q24H IV 03/09/18 10:00 04/08/18 09:59 03/12/18 19:07 Ertapenem 1 gm/ Sodium Chloride 55 ml @ 110 mls/hr Q24H IVPB 03/09/18 12:00 03/18/18 11:59 03/14/18 11:49 Haloperidol Lactate (Haldol) 5 mg Q4H PRN IM Agitation 03/08/18 23:45 03/31/18 19:44 Hydralazine HCl (Apresoline) 25 mg Q6HR ORAL 03/09/18 00:00 04/04/18 18:21 03/14/18 05:49 Insulin Aspart (NovoLOG) EVERY 6 HOURS SUBQ 03/11/18 12:00 04/10/18 11:59 03/14/18 11:52 Lorazepam (Ativan 2mg/ml 1ml) 1 mg Q4H PRN IV For Anxiety 03/09/18 02:00 03/14/18 17:59 Lorazepam (Ativan 2mg/ml 1ml) 2 mg Q4H PRN IV For more severe Anxiety 03/08/18 23:15 03/15/18 23:14 03/12/18 16:55 Metoprolol Tartrate (Lopressor) 10 mg Q1H PRN IVP Heart rate >120 per minute 03/08/18 23:45 03/31/18 19:44 Morphine Sulfate (Morphine Sulfate) 4 mg Q4H PRN IVP For Pain 03/08/18 23:15 03/15/18 23:14 Nitroglycerin (Ntg) 0.4 mg Q5M PRN SL Prn Chest Pain 03/08/18 23:00 03/30/18 18:20 Ondansetron HCl (Zofran) 4 mg Q6H PRN IVP Nausea & Vomiting 03/09/18 01:45 04/05/18 19:44 Pantoprazole (Protonix) 40 mg DAILY IV 03/09/18 09:00 04/08/18 08:59 03/14/18 09:56 Polyethylene Glycol (Miralax) 17 gm DAILYPRN PRN ORAL Constipation 03/09/18 19:45 04/05/18 19:44 Vancomycin HCl (Vanco rx to dose) 1 ea DAILY PRN MISC rx protocol 03/09/18 09:00 04/05/18 19:44 Vancomycin/Sodium Chloride 250 ml @ 167 mls/hr Q12H IVPB 03/08/18 23:00 03/15/18 23:59 03/14/18 11:49 Susan Dennis M.D. Mar 14, 2018 15:28
--- NOTE | 2018-03-14 16:14 | General Surgery Progress Note ---
General Surgery-Progress Note Subjective Additional Comments no acute events. Objective Last 24 Hour Vital Signs Date Time Temp Pulse Resp B/P (MAP) Pulse Ox O2 Delivery O2 Flow Rate FiO2 03/14/18 15:00 87 15 141/85 (103) 97 03/14/18 14:51 86 19 40 03/14/18 14:00 89 21 122/87 (99) 97 03/14/18 13:21 89 18 40 03/14/18 13:20 40 03/14/18 13:00 87 20 135/79 (97) 96 03/14/18 12:00 99.1 86 28 111/82 (92) 96 03/14/18 12:00 Mechanical Ventilator Mechanical Ventilator 03/14/18 12:00 78 03/14/18 11:50 93/68 03/14/18 11:10 40 03/14/18 11:05 85 19 40 03/14/18 11:00 86 17 93/68 (76) 96 03/14/18 10:00 96 20 145/109 (121) 100 03/14/18 09:57 103 03/14/18 09:56 103 130/100 03/14/18 09:00 94 19 139/100 (113) 99 03/14/18 08:52 93 14 55 03/14/18 08:00 70 03/14/18 08:00 Mechanical Ventilator Mechanical Ventilator 03/14/18 08:00 98.6 88 18 144/93 (110) 100 03/14/18 08:00 93 03/14/18 07:15 92 18 55 03/14/18 07:00 94 20 139/94 (109) 99 03/14/18 06:00 85 15 126/87 (100) 99 92 03/14/18 05:49 126/78 03/14/18 05:15 91 16 55 03/14/18 04:54 92 15 126/79 (95) 99 92 03/14/18 04:00 Mechanical Ventilator Mechanical Ventilator 03/14/18 04:00 86 03/14/18 04:00 98.6 88 15 124/84 (97) 99 88 03/14/18 03:00 92 17 55 03/14/18 03:00 86 20 126/80 (95) 98 86 03/14/18 02:00 84 15 90/67 (75) 98 84 03/14/18 01:18 88 27 55 03/14/18 01:00 88 20 131/77 (95) 98 88 03/14/18 00:00 85 03/14/18 00:00 98.4 88 17 119/64 (82) 98 88 03/14/18 00:00 Mechanical Ventilator Mechanical Ventilator 03/13/18 23:53 132/84 03/13/18 23:44 84 27 55 03/13/18 23:00 92 18 132/84 (100) 98 92 03/13/18 22:00 83 17 108/63 (78) 99 03/13/18 21:22 95 145/85 03/13/18 21:14 95 15 55 03/13/18 21:00 86 03/13/18 21:00 92 17 145/85 (105) 99 03/13/18 20:00 98.5 88 23 131/86 (101) 98 03/13/18 20:00 Mechanical Ventilator Mechanical Ventilator 03/13/18 19:07 90 21 55 03/13/18 19:00 91 17 137/79 (98) 99 03/13/18 18:00 88 21 133/86 (102) 99 03/13/18 17:10 86 24 55 03/13/18 17:01 114/69 03/13/18 17:00 89 18 114/69 (84) 99 I&O Intake and Output 03/13/18 03/14/18 19:00 07:00 Intake Total 3041 ml 2030 ml Output Total 1005 ml 785 ml Balance 2036 ml 1245 ml Free Water 750 ml 1000 ml IV Total 1511 ml 250 ml Tube Feeding 780 ml 780 ml Output Urine Total 1005 ml 785 ml # Voids 120 Dressing: other Wound: other Drains: other Cardiovascular: RSR Respiratory: clear, decreased breath sounds Abdomen: soft, non-tender, present bowel sounds Extremities: no cyanosis, other Laboratory Tests Test 03/14/18 05:00 03/14/18 08:20 White Blood Count 10.7 K/UL (4.8-10.8) Red Blood Count 5.01 M/UL (4.70-6.10) Hemoglobin 12.9 G/DL (14.2-18.0) L Hematocrit 41.3 % (42.0-52.0) L Mean Corpuscular Volume 82 FL (80-99) Mean Corpuscular Hemoglobin 25.7 PG (27.0-31.0) L Mean Corpuscular Hemoglobin Concent 31.2 G/DL (32.0-36.0) L Red Cell Distribution Width 17.2 % (11.6-14.8) H Platelet Count 245 K/UL (150-450) Mean Platelet Volume 8.6 FL (6.5-10.1) Neutrophils (%) (Auto) 77.5 % (45.0-75.0) H Lymphocytes (%) (Auto) 14.2 % (20.0-45.0) L Monocytes (%) (Auto) 5.9 % (1.0-10.0) Eosinophils (%) (Auto) 1.6 % (0.0-3.0) Basophils (%) (Auto) 0.8 % (0.0-2.0) Sodium Level 152 MMOL/L (136-145) H Potassium Level 3.7 MMOL/L (3.5-5.1) Chloride Level 117 MMOL/L (98-107) H Carbon Dioxide Level 29 MMOL/L (21-32) Anion Gap 7 mmol/L (5-15) Blood Urea Nitrogen 42 mg/dL (7-18) H Creatinine 1.4 MG/DL (0.55-1.30) H Estimat Glomerular Filtration Rate 52.6 mL/min (>60) Glucose Level 199 MG/DL (74-106) #H Calcium Level 7.9 MG/DL (8.5-10.1) L Phosphorus Level 2.6 MG/DL (2.5-4.9) Magnesium Level 2.4 MG/DL (1.8-2.4) Total Bilirubin 1.6 MG/DL (0.2-1.0) H Direct Bilirubin 1.0 MG/DL (0.0-0.3) H Aspartate Amino Transf (AST/SGOT) 27 U/L (15-37) Alanine Aminotransferase (ALT/SGPT) 32 U/L (12-78) Alkaline Phosphatase 225 U/L (46-116) H Total Protein 6.2 G/DL (6.4-8.2) L Albumin 1.6 G/DL (3.4-5.0) L Globulin 4.6 g/dL Albumin/Globulin Ratio 0.3 (1.0-2.7) L Arterial Blood pH 7.423 (7.350-7.450) Arterial Blood Partial Pressure CO2 40.8 mmHg (35.0-45.0) Arterial Blood Partial Pressure O2 134.6 mmHg (75.0-100.0) H Arterial Blood HCO3 26.0 mmol/L (22.0-26.0) Arterial Blood Oxygen Saturation 98.5 % (95-100) Arterial Blood Base Excess 1.5 (-2-2) Janes Test Positive Plan Problems: (1) Abnormal LFTs Assessment & Plan: will obtain hepatitis panel US abdomen - Cholelithiasis; Borderline gallbladder wall thickening, could indicate early acute cholecystitis changes. Consider hepatobiliary nuclear scan if there is high clinical suspicion Negative for dilated ducts will monitor clinically for now HIDA noted hep panel negative hiv neg LFTs noted / improving no surgical intervention necessary at this time. -unlikely cholecystitis. likely contracted GB trend labs may consider repeat US abd (2) Cellulitis Assessment & Plan: chronic bilateral lower extremity wounds / ulcers acute on chronic cellulitis no abscess noted serous drainage multiple wounds that seem traumatic like cuts some small ulcers see wound photos for details -IV Abx as per ID -Keep legs elevated -apply skin protectant, hydrogel, non adherent dressings, and wrap ICU care and management (3) Decubital ulcer Assessment & Plan: patient with two small DTI to sacrum now. precautions being taken. patient being turned q2h. foam dressings and skin protectant has been in place. air mattress. unfortunately given condition and current state despite maximal effort there are unavoidable pressure wounds noted. will continue to maximal care R buttocks DTPI evolving .Wound moist -viable with edges adherent and flat (L) 2cm x (W)2.5cm. Periwound is clean and intact. Reabsorbed blood blister L buttocks. Area is purple with red tinged borders (L)5cm x (W)1cm. Triad paste applied and covered with Sacral foam drsg.Pt positioned on side both heels off- loaded with pillow.Moisture intertrigo notd to abd folds and groin areas .Triad paste applied to affected area. Both heels dry and blanchable and are off- loaded with pillow. Pt is on an air fluidized mattress. All wound preventive protocols and Tx orders maintained. thank you Garth Cornelius Mar 14, 2018 16:14
--- NOTE | 2018-03-14 17:01 | Neurology Progress Note ---
Interim History Interim History Interim History Mr. Cornejo is wake and more responsive today. He can follow a few simple commands. He however is still unable to communicate well. He indicates that he cannot see. He can moves his hands on command. He cannot move his legs. He is still intubated and artificially ventilated. Review of Systems Neuro Review of Systems Unable to obtain. Objective Physical Exam Last Vital Signs Date Time Temp Pulse Resp B/P (MAP) Pulse Ox O2 Delivery O2 Flow Rate FiO2 03/14/18 16:00 97.9 84 16 134/77 (96) 97 03/14/18 16:00 Mechanical Ventilator Mechanical Ventilator 03/14/18 14:51 40 03/08/18 20:00 15.0 Laboratory Tests Test 03/14/18 05:00 03/14/18 08:20 White Blood Count 10.7 K/UL (4.8-10.8) Red Blood Count 5.01 M/UL (4.70-6.10) Hemoglobin 12.9 G/DL (14.2-18.0) L Hematocrit 41.3 % (42.0-52.0) L Mean Corpuscular Volume 82 FL (80-99) Mean Corpuscular Hemoglobin 25.7 PG (27.0-31.0) L Mean Corpuscular Hemoglobin Concent 31.2 G/DL (32.0-36.0) L Red Cell Distribution Width 17.2 % (11.6-14.8) H Platelet Count 245 K/UL (150-450) Mean Platelet Volume 8.6 FL (6.5-10.1) Neutrophils (%) (Auto) 77.5 % (45.0-75.0) H Lymphocytes (%) (Auto) 14.2 % (20.0-45.0) L Monocytes (%) (Auto) 5.9 % (1.0-10.0) Eosinophils (%) (Auto) 1.6 % (0.0-3.0) Basophils (%) (Auto) 0.8 % (0.0-2.0) Sodium Level 152 MMOL/L (136-145) H Potassium Level 3.7 MMOL/L (3.5-5.1) Chloride Level 117 MMOL/L (98-107) H Carbon Dioxide Level 29 MMOL/L (21-32) Anion Gap 7 mmol/L (5-15) Blood Urea Nitrogen 42 mg/dL (7-18) H Creatinine 1.4 MG/DL (0.55-1.30) H Estimat Glomerular Filtration Rate 52.6 mL/min (>60) Glucose Level 199 MG/DL (74-106) #H Calcium Level 7.9 MG/DL (8.5-10.1) L Phosphorus Level 2.6 MG/DL (2.5-4.9) Magnesium Level 2.4 MG/DL (1.8-2.4) Total Bilirubin 1.6 MG/DL (0.2-1.0) H Direct Bilirubin 1.0 MG/DL (0.0-0.3) H Aspartate Amino Transf (AST/SGOT) 27 U/L (15-37) Alanine Aminotransferase (ALT/SGPT) 32 U/L (12-78) Alkaline Phosphatase 225 U/L (46-116) H Total Protein 6.2 G/DL (6.4-8.2) L Albumin 1.6 G/DL (3.4-5.0) L Globulin 4.6 g/dL Albumin/Globulin Ratio 0.3 (1.0-2.7) L Arterial Blood pH 7.423 (7.350-7.450) Arterial Blood Partial Pressure CO2 40.8 mmHg (35.0-45.0) Arterial Blood Partial Pressure O2 134.6 mmHg (75.0-100.0) H Arterial Blood HCO3 26.0 mmol/L (22.0-26.0) Arterial Blood Oxygen Saturation 98.5 % (95-100) Arterial Blood Base Excess 1.5 (-2-2) Janes Test Positive Neurologic Exam Objective PHYSICAL EXAMINATION: GENERAL: He is a well developed, well nourished, gentleman, lying in an ICU bed, connected to a ventilator via an priti-tracheal tube. HEAD: Normocephalic and atraumatic. EENT: Examination benign. NECK: No neck rigidity was observed. NEUROLOGIC EXAMINATION: MENTAL STATUS EXAMINATION: He was awake and more responsive. He followed a few simple commands more consistently. Further mental status testing was impossible. SPEECH: Could not be tested. LANGUAGE: Could not be tested. CRANIAL NERVE EXAMINATION: II: He did not blink to threat. He indicated that he could not see. III, IV & : The external ocular movements were present on oculocephalic maneuvers. The pupils were 3 mm in diameter and did not react to light. V & VII: The corneal reflexes were subdued but equal. VIII: He did respond to sounds and had no nystagmus. IX & X: The gag reflex was absent. XI: The sternocleidomastoids and trapezii did not function. XII: He protruded his tongue on command. MOTOR SYSTEM: The tone was normal in all 4 extremities. Examination of muscle mass revealed no focal wasting. 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 Examination of power was impossible to perform he was able to give minimal squeeze with both hands but was unable to move the lower extremities. SENSORY EXAMINATION: He did not respond to deep painful stimuli. REFLEXES: 0 at the biceps, triceps, brachioradialis, knees, and ankles. The right plantar response could not be tested as he had no toes, and the left plantar response was mute. COORDINATION, STANCE & GAIT: Could not be tested. Impression/Recommendations Diagnostic Impression 1. Mr. Dustin Cornejo is a 57-year-old, gentleman, of unknown handedness, who was hospitalized for right lower extremity cellulitis and then in the hospital deteriorated to a point where became quite altered with regards to his mental state on 03/05/2018 and was transferred to the ICU. He was noted to have atrial fibrillation with a rapid ventricular rate and shortness of breath related to hypoxic respiratory failure and then became agitated as a result of which he was given multiple doses of Ativan, Haldol, and morphine. 2. He is awake and more responsive today. He can follow a few simple commands. He however is still unable to communicate well. He indicates that he cannot see. He can moves his hands on command. He cannot move his legs. He is still intubated and artificially ventilated. 3. On neurological examination, at this time, he is awake. He he follows commands more consistently. He however does not blink to threat and says he cannot see. He is able to move his upper extremities minimally but not his lower extremities. He does not respond to deep pain. He does not demonstrate any lateralizing findings. He has globally absent deep tendon reflexes, and the plantar response on the left side is mute. 4. His latest laboratory data on my initial evaluation revealed his WBC count was elevated to 13,400. He had his last ESR on 03/02/2018 and it was 7. His blood gases revealed that he had a pH of 7.48, pCO2 of 35, and pO2 of 51. His latest chemistry panel revealed that his sodium was elevated to 155. His chloride was elevated to 118. His BUN was elevated to 41. His creatinine was elevated to 1.3. His glucose was elevated to 208. His total bilirubin was elevated at 2.8. His AST, ALT, and alkaline phosphatase were all elevated. His albumin was low at 2.2. His urine toxicology screen on admission revealed that tetrahydrocannabinols were present. His serologies were negative for HIV. 5. Further laboratory tests revealed a normal B12, Folate, TSH but the Hb A1C was elevated at 9.2%. 6. The CT of the brain done on 03/07/18 revealed atrophy and deep white matter disease but no acute pathology. 7. The EEG revealed a moderate toxic/metabolic encephalopathy. 8. The patient's history, neurological examination, laboratory data, EEG and imaging are most compatible with a severe toxic metabolic encephalopathy, which is multifactorial. The recent cardiac arrest has led to an anoxic/ischemic encephalopathy. Acute intracranial pathology has been excluded. 9. His encephalopathy has improved today. It is unclear if he has become cortically blind. Recommendations 1. Continue present management. 2. Keep the patient off all mind-altering drugs. 3. Correct toxic/metabolic imbalances the best possible. 4. Observe closely in ICU setting. 5. When extubated get MRI of brain to evaluate for corticaal blindness. Dawit Marshall M.D., M.S.P.H. Dawit Marshall MD Mar 14, 2018 17:01
--- NOTE | 2018-03-14 17:37 | Cardiology Progress Note ---
Assessment/Plan Assessment/Plan 1. Atrial fibrillation with controlled ventricular response, continue carvedilol and digoxin. 2. Acute on chronic systolic and diastolic heart failure with LVEF at 25% with severe mitral regurgitation, continue carvedilol, digoxin and hydralazine, off diuretics due to hypernatremia. 3. Severe mitral regurgitation, afterload reduction with hydralazine. 4. Acute respiratory failure. Subjective Subjective Atrial fibrillation with controlled ventricular response at rate of 91. Intubated with FiO2 of 40%. Objective Last 24 Hour Vital Signs Date Time Temp Pulse Resp B/P (MAP) Pulse Ox O2 Delivery O2 Flow Rate FiO2 03/14/18 16:53 91 14 40 03/14/18 16:00 97.9 84 16 134/77 (96) 97 03/14/18 16:00 90 03/14/18 16:00 Mechanical Ventilator Mechanical Ventilator 03/14/18 15:00 87 15 141/85 (103) 97 03/14/18 14:51 86 19 40 03/14/18 14:00 89 21 122/87 (99) 97 03/14/18 13:21 89 18 40 03/14/18 13:20 40 03/14/18 13:00 87 20 135/79 (97) 96 03/14/18 12:00 99.1 86 28 111/82 (92) 96 03/14/18 12:00 Mechanical Ventilator Mechanical Ventilator 03/14/18 12:00 78 03/14/18 11:50 93/68 03/14/18 11:10 40 03/14/18 11:05 85 19 40 03/14/18 11:00 86 17 93/68 (76) 96 03/14/18 10:00 96 20 145/109 (121) 100 03/14/18 09:57 103 03/14/18 09:56 103 130/100 03/14/18 09:00 94 19 139/100 (113) 99 03/14/18 08:52 93 14 55 03/14/18 08:00 70 03/14/18 08:00 Mechanical Ventilator Mechanical Ventilator 03/14/18 08:00 98.6 88 18 144/93 (110) 100 03/14/18 08:00 93 03/14/18 07:15 92 18 55 03/14/18 07:00 94 20 139/94 (109) 99 03/14/18 06:00 85 15 126/87 (100) 99 92 03/14/18 05:49 126/78 03/14/18 05:15 91 16 55 03/14/18 04:54 92 15 126/79 (95) 99 92 03/14/18 04:00 Mechanical Ventilator Mechanical Ventilator 03/14/18 04:00 86 03/14/18 04:00 98.6 88 15 124/84 (97) 99 88 03/14/18 03:00 92 17 55 03/14/18 03:00 86 20 126/80 (95) 98 86 03/14/18 02:00 84 15 90/67 (75) 98 84 03/14/18 01:18 88 27 55 03/14/18 01:00 88 20 131/77 (95) 98 88 03/14/18 00:00 85 03/14/18 00:00 98.4 88 17 119/64 (82) 98 88 03/14/18 00:00 Mechanical Ventilator Mechanical Ventilator 03/13/18 23:53 132/84 03/13/18 23:44 84 27 55 03/13/18 23:00 92 18 132/84 (100) 98 92 03/13/18 22:00 83 17 108/63 (78) 99 03/13/18 21:22 95 145/85 03/13/18 21:14 95 15 55 03/13/18 21:00 86 03/13/18 21:00 92 17 145/85 (105) 99 03/13/18 20:00 98.5 88 23 131/86 (101) 98 03/13/18 20:00 Mechanical Ventilator Mechanical Ventilator 03/13/18 19:07 90 21 55 03/13/18 19:00 91 17 137/79 (98) 99 03/13/18 18:00 88 21 133/86 (102) 99 Intake and Output 03/13/18 03/14/18 19:00 07:00 Intake Total 3041 ml 2030 ml Output Total 1005 ml 785 ml Balance 2036 ml 1245 ml Free Water 750 ml 1000 ml IV Total 1511 ml 250 ml Tube Feeding 780 ml 780 ml Output Urine Total 1005 ml 785 ml # Voids 120 2D Echo: LVEF 25%, Bi-atrial enlargement, Severe MR, RVSP 24 mmHg, RAP 15 mmHg Laboratory Tests Test 03/14/18 05:00 12/12/18 08:20 White Blood Count 10.7 K/UL (4.8-10.8) Red Blood Count 5.01 M/UL (4.70-6.10) Hemoglobin 12.9 G/DL (14.2-18.0) L Hematocrit 41.3 % (42.0-52.0) L Mean Corpuscular Volume 82 FL (80-99) Mean Corpuscular Hemoglobin 25.7 PG (27.0-31.0) L Mean Corpuscular Hemoglobin Concent 31.2 G/DL (32.0-36.0) L Red Cell Distribution Width 17.2 % (11.6-14.8) H Platelet Count 245 K/UL (150-450) Mean Platelet Volume 8.6 FL (6.5-10.1) Neutrophils (%) (Auto) 77.5 % (45.0-75.0) H Lymphocytes (%) (Auto) 14.2 % (20.0-45.0) L Monocytes (%) (Auto) 5.9 % (1.0-10.0) Eosinophils (%) (Auto) 1.6 % (0.0-3.0) Basophils (%) (Auto) 0.8 % (0.0-2.0) Sodium Level 152 MMOL/L (136-145) H Potassium Level 3.7 MMOL/L (3.5-5.1) Chloride Level 117 MMOL/L (98-107) H Carbon Dioxide Level 29 MMOL/L (21-32) Anion Gap 7 mmol/L (5-15) Blood Urea Nitrogen 42 mg/dL (7-18) H Creatinine 1.4 MG/DL (0.55-1.30) H Estimat Glomerular Filtration Rate 52.6 mL/min (>60) Glucose Level 199 MG/DL (74-106) #H Calcium Level 7.9 MG/DL (8.5-10.1) L Phosphorus Level 2.6 MG/DL (2.5-4.9) Magnesium Level 2.4 MG/DL (1.8-2.4) Total Bilirubin 1.6 MG/DL (0.2-1.0) H Direct Bilirubin 1.0 MG/DL (0.0-0.3) H Aspartate Amino Transf (AST/SGOT) 27 U/L (15-37) Alanine Aminotransferase (ALT/SGPT) 32 U/L (12-78) Alkaline Phosphatase 225 U/L (46-116) H Total Protein 6.2 G/DL (6.4-8.2) L Albumin 1.6 G/DL (3.4-5.0) L Globulin 4.6 g/dL Albumin/Globulin Ratio 0.3 (1.0-2.7) L Arterial Blood pH 7.423 (7.350-7.450) Arterial Blood Partial Pressure CO2 40.8 mmHg (35.0-45.0) Arterial Blood Partial Pressure O2 134.6 mmHg (75.0-100.0) H Arterial Blood HCO3 26.0 mmol/L (22.0-26.0) Arterial Blood Oxygen Saturation 98.5 % (95-100) Arterial Blood Base Excess 1.5 (-2-2) Janes Test Positive Microbiology Date/Time Source Procedure Growth Status 03/12/18 10:25 Indwelling Cath Urine Culture - Final NO GROWTH AFTER 48 HOURS Complete Objective HEENT: Atraumatic and normocephalic. Anicteric. Pupils are equal, round, and reactive to light and accommodation. Extraocular muscles intact. Intubated. NECK: JVP elevated about 5cm. No carotid bruits. Carotid upstrokes 2+ bilaterally. CARDIOVASCULAR: Normal S1, S2. Irregularly irregular rhythm. 2/6 Holosystolic murmur, gallop, or rub. LUNGS: Diminished BS both lungs. ABDOMEN: Soft, nontender, and nondistended. No hepatosplenomegaly. Positive bowel sounds. EXTREMITIES: There is 1+ bilateral lower extremity edema with ulcerations. Sudarshan Stuart MD Mar 14, 2018 17:37
--- NOTE | 2018-03-14 20:50 | Nephrology Progress Note ---
Assessment/Plan Assessment 1.hypernatremia 2.ZHAO 3.ckd 4.respiratory failure 5.CHF Plan free water via NG obtain u/a hold lasix monitoring renal function avoid NSAID replace electrolyte as need it Subjective Constitutional: Reports: no symptoms HEENT: Reports: no symptoms Genitourinary: Reports: no symptoms Neurologic/Psychiatric: Reports: no symptoms Subjective continue to be in ICU intubated good urine out put unresponsive Objective Objective Last 24 Hour Vital Signs Date Time Temp Pulse Resp B/P (MAP) Pulse Ox O2 Delivery O2 Flow Rate FiO2 03/14/18 20:00 Mechanical Ventilator Mechanical Ventilator 03/14/18 19:06 93 17 40 03/14/18 18:11 130/75 03/14/18 18:00 88 17 130/75 (93) 98 03/14/18 17:00 89 15 136/82 (100) 98 03/14/18 16:53 91 14 40 03/14/18 16:00 97.9 84 16 134/77 (96) 97 03/14/18 16:00 90 03/14/18 16:00 Mechanical Ventilator Mechanical Ventilator 03/14/18 15:00 87 15 141/85 (103) 97 03/14/18 14:51 86 19 40 03/14/18 14:00 89 21 122/87 (99) 97 03/14/18 13:21 89 18 40 03/14/18 13:20 40 03/14/18 13:00 87 20 135/79 (97) 96 03/14/18 12:00 99.1 86 28 111/82 (92) 96 03/14/18 12:00 Mechanical Ventilator Mechanical Ventilator 03/14/18 12:00 78 03/14/18 11:50 93/68 03/14/18 11:10 40 03/14/18 11:05 85 19 40 03/14/18 11:00 86 17 93/68 (76) 96 03/14/18 10:00 96 20 145/109 (121) 100 03/14/18 09:57 103 03/14/18 09:56 103 130/100 03/14/18 09:00 94 19 139/100 (113) 99 03/14/18 08:52 93 14 55 03/14/18 08:00 70 03/14/18 08:00 Mechanical Ventilator Mechanical Ventilator 03/14/18 08:00 98.6 88 18 144/93 (110) 100 03/14/18 08:00 93 03/14/18 07:15 92 18 55 03/14/18 07:00 94 20 139/94 (109) 99 03/14/18 06:00 85 15 126/87 (100) 99 92 03/14/18 05:49 126/78 03/14/18 05:15 91 16 55 03/14/18 04:54 92 15 126/79 (95) 99 92 03/14/18 04:00 Mechanical Ventilator Mechanical Ventilator 03/14/18 04:00 86 03/14/18 04:00 98.6 88 15 124/84 (97) 99 88 03/14/18 03:00 92 17 55 03/14/18 03:00 86 20 126/80 (95) 98 86 03/14/18 02:00 84 15 90/67 (75) 98 84 03/14/18 01:18 88 27 55 03/14/18 01:00 88 20 131/77 (95) 98 88 03/14/18 00:00 85 03/14/18 00:00 98.4 88 17 119/64 (82) 98 88 03/14/18 00:00 Mechanical Ventilator Mechanical Ventilator 03/13/18 23:53 132/84 03/13/18 23:44 84 27 55 03/13/18 23:00 92 18 132/84 (100) 98 92 03/13/18 22:00 83 17 108/63 (78) 99 03/13/18 21:22 95 145/85 03/13/18 21:14 95 15 55 03/13/18 21:00 86 03/13/18 21:00 92 17 145/85 (105) 99 Intake and Output 03/13/18 03/14/18 19:00 07:00 Intake Total 3041 ml 2030 ml Output Total 1005 ml 785 ml Balance 2036 ml 1245 ml Free Water 750 ml 1000 ml IV Total 1511 ml 250 ml Tube Feeding 780 ml 780 ml Output Urine Total 1005 ml 785 ml # Voids 120 Laboratory Tests 03/14/18 05:00: White Blood Count 10.7, Red Blood Count 5.01, Hemoglobin 12.9L, Hematocrit 41.3L , Mean Corpuscular Volume 82, Mean Corpuscular Hemoglobin 25.7L, Mean Corpuscular Hemoglobin Concent 31.2L, Red Cell Distribution Width 17.2H, Platelet Count 245, Mean Platelet Volume 8.6, Neutrophils (%) (Auto) 77.5H, Lymphocytes (%) (Auto) 14.2L, Monocytes (%) (Auto) 5.9, Eosinophils (%) (Auto) 1.6, Basophils (%) (Auto) 0.8, Sodium Level 152H, Potassium Level 3.7, Chloride Level 117H, Carbon Dioxide Level 29, Anion Gap 7, Blood Urea Nitrogen 42H, Creatinine 1.4H, Estimat Glomerular Filtration Rate 52.6, Glucose Level 199#H, Calcium Level 7.9L, Phosphorus Level 2.6, Magnesium Level 2.4, Total Bilirubin 1.6H, Direct Bilirubin 1.0H, Aspartate Amino Transf (AST/SGOT) 27, Alanine Aminotransferase (ALT/SGPT) 32, Alkaline Phosphatase 225H, Total Protein 6.2L, Albumin 1.6L, Globulin 4.6, Albumin/Globulin Ratio 0.3L 03/14/18 08:20: Arterial Blood pH 7.423, Arterial Blood Partial Pressure CO2 40.8, Arterial Blood Partial Pressure O2 134.6H, Arterial Blood HCO3 26.0, Arterial Blood Oxygen Saturation 98.5, Arterial Blood Base Excess 1.5, Janes Test Positive Height (Feet): 6 Height (Inches): 0.00 Weight (Pounds): 270 Objective HEENT: Atraumatic and normocephalic. Anicteric. Pupils are equal, round, and reactive to light and accommodation. Extraocular muscles intact. Altered. NECK: JVP elevated about 5cm. No carotid bruits. Carotid upstrokes 2+ bilaterally. CARDIOVASCULAR: Normal S1, S2. Irregularly irregular rhythm. 2/6 Holosystolic murmur, gallop, or rub. LUNGS: Diminished BS both lungs. ABDOMEN: Soft, nontender, and nondistended. No hepatosplenomegaly. Positive bowel sounds. EXTREMITIES: There is 1+ bilateral lower extremity edema with ulcerations. Maryana Collier MD Mar 14, 2018 20:50
[2018-03-14] MEDS: Dyna-Hex 2% Top Sol 2oz TOPIC SCH (21:10)
[2018-03-15] VITALS (22 sets, daily range): BP systolic 102–136; BP diastolic 60–91
[2018-03-15] MEDS: HydrALAZINE 25mg tab ORAL SCH ×4 (00:14→18:00)
[2018-03-15] MEDS: NovoLOG Insulin Flexpen SUBQ SCH ×4 (00:15→18:00)
[2018-03-15 05:13] LABS: BASOPHILS % (AUTO) 0.7 % (0.0-2.0); EOSINOPHILS % (AUTO) 1.6 % (0.0-3.0); HEMATOCRIT 40.3 % (42.0-52.0); HEMOGLOBIN 12.7 G/DL (14.2-18.0); LYMPHOCYTES % (AUTO) 16.4 % (20.0-45.0); MEAN CORPUSCULAR VOLUME 83 FL (80-99); MONOCYTES % (AUTO) 5.7 % (1.0-10.0); NEUTROPHILS % (AUTO) 75.6 % (45.0-75.0); PLATELET COUNT 239 K/UL (150-450); RED BLOOD COUNT 4.88 M/UL (4.70-6.10); RED CELL DISTRIBUTION WIDTH 17.6 % (11.6-14.8); WHITE BLOOD COUNT 8.2 K/UL (4.8-10.8)
[2018-03-15 05:56] LABS: ALANINE AMINOTRANSFERASE 27 U/L (12-78); ALBUMIN 1.5 G/DL (3.4-5.0); ALBUMIN/GLOBULIN RATIO 0.3 (1.0-2.7); ALKALINE PHOSPHATASE 215 U/L (46-116); ANION GAP 6 mmol/L (5-15); ASPARTATE AMINO TRANSFERASE 24 U/L (15-37); BILIRUBIN,TOTAL 1.3 MG/DL (0.2-1.0); BLOOD UREA NITROGEN 42 mg/dL (7-18); CARBON DIOXIDE 29 MMOL/L (21-32); CHLORIDE 120 MMOL/L (98-107); CREATININE 1.4 MG/DL (0.55-1.30); PHOSPHORUS 2.7 MG/DL (2.5-4.9); POTASSIUM 3.9 MMOL/L (3.5-5.1); SODIUM 155 MMOL/L (136-145)
[2018-03-15 06:06] LABS: BILIRUBIN,DIRECT 0.8 MG/DL (0.0-0.3)
[2018-03-15] MEDS: Pantoprazole Inj IV SCH (08:51)
[2018-03-15] MEDS: Digoxin 0.5mg/2ml Inj IVP SCH (08:52)
[2018-03-15] MEDS: Carvedilol 25mg Tab ORAL SCH ×2 (08:52→20:25)
--- NOTE | 2018-03-15 09:04 | Diagnostic Imaging Report ---
Indication: Dyspnea Technique: One view of the chest Comparison: 03/14/2018 Findings: Still satisfactory positions of endotracheal and nasogastric tube. Stable opacity at the right lung base. Minimally improved left infrahilar opacity. Impression: Minimally improved left infrahilar opacity, over one day. Otherwise stable as described, including right basilar pleural and/or parenchymal disease
--- NOTE | 2018-03-15 09:39 | Neurology Progress Note ---
Interim History Interim History Interim History Mr. Cornejo is awake and responsive. He can follow a few simple commands. He however is still unable to communicate well. He indicates that he can see but does not blink to threat or count fingers. He can move his hands on command. He cannot move his legs. He is still intubated and artificially ventilated. Review of Systems Neuro Review of Systems Unable to obtain. Objective Physical Exam Last Vital Signs Date Time Temp Pulse Resp B/P (MAP) Pulse Ox O2 Delivery O2 Flow Rate FiO2 03/15/18 08:52 88 130/71 03/15/18 07:35 14 40 03/15/18 07:00 97 03/15/18 06:00 99.0 03/15/18 04:00 Mechanical Ventilator Mechanical Ventilator 03/08/18 20:00 15.0 Laboratory Tests Test 03/15/18 04:00 White Blood Count 8.2 K/UL (4.8-10.8) Red Blood Count 4.88 M/UL (4.70-6.10) Hemoglobin 12.7 G/DL (14.2-18.0) L Hematocrit 40.3 % (42.0-52.0) L Mean Corpuscular Volume 83 FL (80-99) Mean Corpuscular Hemoglobin 26.0 PG (27.0-31.0) L Mean Corpuscular Hemoglobin Concent 31.5 G/DL (32.0-36.0) L Red Cell Distribution Width 17.6 % (11.6-14.8) H Platelet Count 239 K/UL (150-450) Mean Platelet Volume 8.0 FL (6.5-10.1) Neutrophils (%) (Auto) 75.6 % (45.0-75.0) H Lymphocytes (%) (Auto) 16.4 % (20.0-45.0) L Monocytes (%) (Auto) 5.7 % (1.0-10.0) Eosinophils (%) (Auto) 1.6 % (0.0-3.0) Basophils (%) (Auto) 0.7 % (0.0-2.0) Sodium Level 155 MMOL/L (136-145) H Potassium Level 3.9 MMOL/L (3.5-5.1) Chloride Level 120 MMOL/L (98-107) H Carbon Dioxide Level 29 MMOL/L (21-32) Anion Gap 6 mmol/L (5-15) Blood Urea Nitrogen 42 mg/dL (7-18) H Creatinine 1.4 MG/DL (0.55-1.30) H Estimat Glomerular Filtration Rate 52.6 mL/min (>60) Glucose Level 224 MG/DL (74-106) H Calcium Level 8.0 MG/DL (8.5-10.1) L Phosphorus Level 2.7 MG/DL (2.5-4.9) Magnesium Level 2.5 MG/DL (1.8-2.4) H Total Bilirubin 1.3 MG/DL (0.2-1.0) H Direct Bilirubin 0.8 MG/DL (0.0-0.3) H Aspartate Amino Transf (AST/SGOT) 24 U/L (15-37) Alanine Aminotransferase (ALT/SGPT) 27 U/L (12-78) Alkaline Phosphatase 215 U/L (46-116) H Total Protein 6.1 G/DL (6.4-8.2) L Albumin 1.5 G/DL (3.4-5.0) L Globulin 4.6 g/dL Albumin/Globulin Ratio 0.3 (1.0-2.7) L Neurologic Exam Objective PHYSICAL EXAMINATION: GENERAL: He is a well developed, well nourished, gentleman, lying in an ICU bed, connected to a ventilator via an priti-tracheal tube. HEAD: Normocephalic and atraumatic. EENT: Examination benign. NECK: No neck rigidity was observed. NEUROLOGIC EXAMINATION: MENTAL STATUS EXAMINATION: He was awake and more responsive. He followed a few simple commands more consistently. Further mental status testing was impossible. SPEECH: Could not be tested. LANGUAGE: Could not be tested. CRANIAL NERVE EXAMINATION: II: He did not blink to threat. He said he could see but could not count fingers. III, IV & : The external ocular movements were present on oculocephalic maneuvers. The pupils were 3 mm in diameter and did not react to light. V & VII: The corneal reflexes were equal. VIII: He did respond to sounds and had no nystagmus. IX & X: The gag reflex was absent. XI: The sternocleidomastoids and trapezii did not function. XII: He protruded his tongue on command. MOTOR SYSTEM: The tone was normal in all 4 extremities. Examination of muscle mass revealed no focal wasting. 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 Examination of power was impossible to perform he was able to give minimal squeeze with both hands but was unable to move the lower extremities. SENSORY EXAMINATION: He did not respond to deep painful stimuli. REFLEXES: 0 at the biceps, triceps, brachioradialis, knees, and ankles. The right plantar response could not be tested as he had no toes, and the left plantar response was mute. COORDINATION, STANCE & GAIT: Could not be tested. Impression/Recommendations Diagnostic Impression 1. Mr. Dustin Cornejo is a 57-year-old, gentleman, of unknown handedness, who was hospitalized for right lower extremity cellulitis and then in the hospital deteriorated to a point where became quite altered with regards to his mental state on 03/05/2018 and was transferred to the ICU. He was noted to have atrial fibrillation with a rapid ventricular rate and shortness of breath related to hypoxic respiratory failure and then became agitated as a result of which he was given multiple doses of Ativan, Haldol, and morphine. 2. He is awake and responsive. He can follow a few simple commands. He however is still unable to communicate well. He indicates that he can see but does not blink to threat or count fingers. He can move his hands on command. He cannot move his legs. He is still intubated and artificially ventilated. 3. On neurological examination, at this time, he is awake. He he follows commands more consistently. He does not blink to threat but says he can see. 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 He does not respond to deep pain. He does not demonstrate any lateralizing findings. He has globally absent deep tendon reflexes, and the plantar response on the left side is mute. 4. His latest laboratory data on my initial evaluation revealed his WBC count was elevated to 13,400. He had his last ESR on 03/02/2018 and it was 7. His blood gases revealed that he had a pH of 7.48, pCO2 of 35, and pO2 of 51. His latest chemistry panel revealed that his sodium was elevated to 155. His chloride was elevated to 118. His BUN was elevated to 41. His creatinine was elevated to 1.3. His glucose was elevated to 208. His total bilirubin was elevated at 2.8. His AST, ALT, and alkaline phosphatase were all elevated. His albumin was low at 2.2. His urine toxicology screen on admission revealed that tetrahydrocannabinols were present. His serologies were negative for HIV. 5. Further laboratory tests revealed a normal B12, Folate, TSH but the Hb A1C was elevated at 9.2%. 6. The CT of the brain done on 03/07/18 revealed atrophy and deep white matter disease but no acute pathology. 7. The EEG revealed a moderate toxic/metabolic encephalopathy. 8. The patient's history, neurological examination, laboratory data, EEG and imaging are most compatible with a severe toxic metabolic encephalopathy, which is multifactorial. The recent cardiac arrest has led to an anoxic/ischemic encephalopathy. Acute intracranial pathology has been excluded. 9. His encephalopathy continues to improve. It is unclear if he has become cortically blind. Recommendations 1. Continue present management. 2. Keep the patient off all mind-altering drugs. 3. Correct toxic/metabolic imbalances the best possible. 4. Observe closely in ICU setting. 5. When extubated get MRI of brain to evaluate for cortical blindness. Dawit Marshall M.D., M.S.P.H. Dawit Marshall MD Mar 15, 2018 09:38
--- NOTE | 2018-03-15 09:58 | Pulmonolgy Critical Care Note ---
Critical Care - Asmt/Plan Problems: (1) Acute encephalopathy (2) Cellulitis (3) Acute renal failure (4) Diastolic CHF, chronic (5) Diabetes (6) Hyperglycemia (7) A-fib (8) Abnormal LFTs (9) Rapid atrial fibrillation Respiratory: monitor respiratory rate, adjust FIO2, CXR Cardiac: continue to monitor HR/BP Renal: F/U I&O, keep IV fluid Infectious Disease: check cultures Gastrointestinal: continue feedings/current rate Endocrine: monitor blood sugar Hematologic: monitor H/H, transfuse if hgb<8.5 Neurologic: PRN Morphine, keep patient comfortable Prophylaxis: Protonix Disposition: keep in ICU Time Spent (Minutes): 40 Notes Reviewed: vice principal Discussed with: nurses, consultants, 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 case 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 environmental - Objective Last 24 Hour Vital Signs Date Time Temp Pulse Resp B/P (MAP) Pulse Ox O2 Delivery O2 Flow Rate FiO2 03/15/18 08:52 88 130/71 03/15/18 08:52 85 03/15/18 07:35 85 14 40 03/15/18 07:00 82 15 111/67 (82) 97 03/15/18 06:16 110/75 03/15/18 06:00 99.0 78 16 104/75 (85) 98 03/15/18 05:13 79 14 40 03/15/18 05:00 82 15 108/67 (81) 97 03/15/18 04:00 81 18 116/69 (85) 98 03/15/18 04:00 80 03/15/18 04:00 Mechanical Ventilator Mechanical Ventilator 03/15/18 03:02 78 14 40 03/15/18 03:00 83 16 113/78 (90) 98 03/15/18 02:00 82 18 121/69 (86) 97 03/15/18 01:30 80 14 40 03/15/18 01:00 99.1 82 14 102/61 (75) 98 03/15/18 00:14 110/68 03/15/18 00:00 Mechanical Ventilator Mechanical Ventilator 03/15/18 00:00 77 03/15/18 00:00 83 18 110/68 (82) 97 03/14/18 23:00 79 15 106/63 (77) 97 03/14/18 22:53 78 14 40 03/14/18 22:00 82 14 107/54 (71) 96 03/14/18 22:00 99.8 03/14/18 21:11 90 135/87 03/14/18 21:07 88 18 40 03/14/18 21:00 99.8 89 19 135/87 (103) 98 03/14/18 20:00 85 03/14/18 20:00 Mechanical Ventilator Mechanical Ventilator 03/14/18 20:00 101.2 86 19 124/83 (97) 97 03/14/18 19:06 93 17 40 03/14/18 19:00 93 20 126/80 (95) 98 03/14/18 18:11 130/75 03/14/18 18:00 88 17 130/75 (93) 98 03/14/18 17:00 89 15 136/82 (100) 98 03/14/18 16:53 91 14 40 03/14/18 16:00 97.9 84 16 134/77 (96) 97 03/14/18 16:00 90 03/14/18 16:00 Mechanical Ventilator Mechanical Ventilator 03/14/18 15:00 87 15 141/85 (103) 97 03/14/18 14:51 86 19 40 03/14/18 14:00 89 21 122/87 (99) 97 03/14/18 13:21 89 18 40 03/14/18 13:20 40 03/14/18 13:00 87 20 135/79 (97) 96 03/14/18 12:00 99.1 86 28 111/82 (92) 96 03/14/18 12:00 Mechanical Ventilator Mechanical Ventilator 03/14/18 12:00 78 03/14/18 11:50 93/68 03/14/18 11:10 40 03/14/18 11:05 85 19 40 03/14/18 11:00 86 17 93/68 (76) 96 03/14/18 10:00 96 20 145/109 (121) 100 Status: awake Condition: critical HEENT: atraumatic Lungs: rales, rhonchi Heart: HR/BP stable Abdomen: soft, non-tender Extremities: no C/C/E Decubiti: location Micro: Microbiology Date/Time Source Procedure Growth Status 03/12/18 10:25 Indwelling Cath Urine Culture - Final NO GROWTH AFTER 48 HOURS Complete Accucheck: 200 Critical Care - Subjective ROS Limited/Unobtainable: No Condition: critical EKG Rhythm: Sinus Rhythm FI02: 40 Vent Support Breath Rate: 14 Vent Support Mode: AC Vent Tidal Volume: 600 Sputum Amount: Small PEEP: 5.0 PIP: 18 Tube Feeding Amount: 65 I&O: Intake and Output 03/14/18 03/15/18 19:00 07:00 Intake Total 1890 ml 1280 ml Output Total 1310 ml 1200 ml Balance 580 ml 80 ml Free Water 750 ml 250 ml IV Total 360 ml 250 ml Tube Feeding 780 ml 780 ml Output Urine Total 1310 ml 1200 ml # Bowel Movements 2 CXR: RLL infiltrate ET-Tube: 7.5 ET Position: 23 Labs: Laboratory Tests Test 03/15/18 04:00 White Blood Count 8.2 K/UL (4.8-10.8) Red Blood Count 4.88 M/UL (4.70-6.10) Hemoglobin 12.7 G/DL (14.2-18.0) L Hematocrit 40.3 % (42.0-52.0) L Mean Corpuscular Volume 83 FL (80-99) Mean Corpuscular Hemoglobin 26.0 PG (27.0-31.0) L Mean Corpuscular Hemoglobin Concent 31.5 G/DL (32.0-36.0) L Red Cell Distribution Width 17.6 % (11.6-14.8) H Platelet Count 239 K/UL (150-450) Mean Platelet Volume 8.0 FL (6.5-10.1) Neutrophils (%) (Auto) 75.6 % (45.0-75.0) H Lymphocytes (%) (Auto) 16.4 % (20.0-45.0) L Monocytes (%) (Auto) 5.7 % (1.0-10.0) Eosinophils (%) (Auto) 1.6 % (0.0-3.0) Basophils (%) (Auto) 0.7 % (0.0-2.0) Sodium Level 155 MMOL/L (136-145) H Potassium Level 3.9 MMOL/L (3.5-5.1) Chloride Level 120 MMOL/L (98-107) H Carbon Dioxide Level 29 MMOL/L (21-32) Anion Gap 6 mmol/L (5-15) Blood Urea Nitrogen 42 mg/dL (7-18) H Creatinine 1.4 MG/DL (0.55-1.30) H Estimat Glomerular Filtration Rate 52.6 mL/min (>60) Glucose Level 224 MG/DL (74-106) H Calcium Level 8.0 MG/DL (8.5-10.1) L Phosphorus Level 2.7 MG/DL (2.5-4.9) Magnesium Level 2.5 MG/DL (1.8-2.4) H Total Bilirubin 1.3 MG/DL (0.2-1.0) H Direct Bilirubin 0.8 MG/DL (0.0-0.3) H Aspartate Amino Transf (AST/SGOT) 24 U/L (15-37) Alanine Aminotransferase (ALT/SGPT) 27 U/L (12-78) Alkaline Phosphatase 215 U/L (46-116) H Total Protein 6.1 G/DL (6.4-8.2) L Albumin 1.5 G/DL (3.4-5.0) L Globulin 4.6 g/dL Albumin/Globulin Ratio 0.3 (1.0-2.7) L Sunita Sahni MD Mar 15, 2018 09:58
[2018-03-15] MEDS: DOPamine 400mg/250ml 250 ML IV SCH (10:00)
--- NOTE | 2018-03-15 10:15 | Nephrology Progress Note ---
Assessment/Plan Assessment 1.hypernatremia 2.ZHAO 3.ckd 4.respiratory failure 5.CHF Plan increase free water via NG obtain u/a hold lasix monitoring renal function avoid NSAID replace electrolyte as need it Subjective Subjective continue to be in ICU intubated unresponsive Objective Objective Last 24 Hour Vital Signs Date Time Temp Pulse Resp B/P (MAP) Pulse Ox O2 Delivery O2 Flow Rate FiO2 03/15/18 08:52 88 130/71 03/15/18 08:52 85 03/15/18 07:35 85 14 40 03/15/18 07:00 82 15 111/67 (82) 97 03/15/18 06:16 110/75 03/15/18 06:00 99.0 78 16 104/75 (85) 98 03/15/18 05:13 79 14 40 03/15/18 05:00 82 15 108/67 (81) 97 03/15/18 04:00 81 18 116/69 (85) 98 03/15/18 04:00 80 03/15/18 04:00 Mechanical Ventilator Mechanical Ventilator 03/15/18 03:02 78 14 40 03/15/18 03:00 83 16 113/78 (90) 98 03/15/18 02:00 82 18 121/69 (86) 97 03/15/18 01:30 80 14 40 03/15/18 01:00 99.1 82 14 102/61 (75) 98 03/15/18 00:14 110/68 03/15/18 00:00 Mechanical Ventilator Mechanical Ventilator 03/15/18 00:00 77 03/15/18 00:00 83 18 110/68 (82) 97 03/14/18 23:00 79 15 106/63 (77) 97 03/14/18 22:53 78 14 40 03/14/18 22:00 82 14 107/54 (71) 96 03/14/18 22:00 99.8 03/14/18 21:11 90 135/87 03/14/18 21:07 88 18 40 03/14/18 21:00 99.8 89 19 135/87 (103) 98 03/14/18 20:00 85 03/14/18 20:00 Mechanical Ventilator Mechanical Ventilator 03/14/18 20:00 101.2 86 19 124/83 (97) 97 03/14/18 19:06 93 17 40 03/14/18 19:00 93 20 126/80 (95) 98 18 18:11 130/75 03/14/18 18:00 88 17 130/75 (93) 98 03/14/18 17:00 89 15 136/82 (100) 98 03/14/18 16:53 91 14 40 03/14/18 16:00 97.9 84 16 134/77 (96) 97 03/14/18 16:00 90 03/14/18 16:00 Mechanical Ventilator Mechanical Ventilator 03/14/18 15:00 87 15 141/85 (103) 97 03/14/18 14:51 86 19 40 03/14/18 14:00 89 21 122/87 (99) 97 03/14/18 13:21 89 18 40 03/14/18 13:20 40 03/14/18 13:00 87 20 135/79 (97) 96 03/14/18 12:00 99.1 86 28 111/82 (92) 96 03/14/18 12:00 Mechanical Ventilator Mechanical Ventilator 03/14/18 12:00 78 03/14/18 11:50 93/68 03/14/18 11:10 40 03/14/18 11:05 85 19 40 03/14/18 11:00 86 17 93/68 (76) 96 Intake and Output 03/14/18 03/15/18 19:00 07:00 Intake Total 1890 ml 1280 ml Output Total 1310 ml 1200 ml Balance 580 ml 80 ml Free Water 750 ml 250 ml IV Total 360 ml 250 ml Tube Feeding 780 ml 780 ml Output Urine Total 1310 ml 1200 ml # Bowel Movements 2 Laboratory Tests 03/15/18 04:00: White Blood Count 8.2, Red Blood Count 4.88, Hemoglobin 12.7L, Hematocrit 40.3L , Mean Corpuscular Volume 83, Mean Corpuscular Hemoglobin 26.0L, Mean Corpuscular Hemoglobin Concent 31.5L, Red Cell Distribution Width 17.6H, Platelet Count 239, Mean Platelet Volume 8.0, Neutrophils (%) (Auto) 75.6H, Lymphocytes (%) (Auto) 16.4L, Monocytes (%) (Auto) 5.7, Eosinophils (%) (Auto) 1.6, Basophils (%) (Auto) 0.7, Sodium Level 155H, Potassium Level 3.9, Chloride Level 120H, Carbon Dioxide Level 29, Anion Gap 6, Blood Urea Nitrogen 42H, Creatinine 1.4H, Estimat Glomerular Filtration Rate 52.6, Glucose Level 224H, Calcium Level 8.0L, Phosphorus Level 2.7, Magnesium Level 2.5H, Total Bilirubin 1.3H, Direct Bilirubin 0.8H, Aspartate Amino Transf (AST/SGOT) 24, Alanine Aminotransferase (ALT/SGPT) 27, Alkaline Phosphatase 215H, Total Protein 6.1L, Albumin 1.5L, Globulin 4.6, Albumin/Globulin Ratio 0.3L 03/15/18 09:40: Arterial Blood pH 7.433, Arterial Blood Partial Pressure CO2 39.9, Arterial Blood Partial Pressure O2 84.8, Arterial Blood HCO3 26.1H, Arterial Blood Oxygen Saturation 96.5, Arterial Blood Base Excess 1.8, Janes Test Positive Height (Feet): 6 Height (Inches): 0.00 Weight (Pounds): 270 Objective HEENT: Atraumatic and normocephalic. Anicteric. Pupils are equal, round, and reactive to light and accommodation. Extraocular muscles intact. Altered. NECK: JVP elevated about 5cm. No carotid bruits. Carotid upstrokes 2+ bilaterally. CARDIOVASCULAR: Normal S1, S2. Irregularly irregular rhythm. 2/6 Holosystolic murmur, gallop, or rub. LUNGS: Diminished BS both lungs. ABDOMEN: Soft, nontender, and nondistended. No hepatosplenomegaly. Positive bowel sounds. EXTREMITIES: There is 1+ bilateral lower extremity edema with ulcerations. Maryana Collier MD Mar 15, 2018 10:15
--- NOTE | 2018-03-15 10:31 | Infectious Diseases Prog Note ---
Assessment/Plan Assessment/Plan Assessment: s/p Code blue 03/08 Aspiration PNA -sp cx ESBL E.coli (S Zosyn, Erta) -03/14 CXR: Persistent right basilar infiltrate and/or pleural effusion. Increasing left infrahilar infiltrate -03/08 cXR: Increasing right upper lung parenchymal opacity may reflect developing infiltrate in the right upper lobe. There is improved aeration of the right lung base -CXR: Improved aeration of the right lung, presumably representing improving atelectasis. Right lower lobe infiltrate. There may also be pleural fluid on the right. Bilateral interstitial disease. Probably on the basis of pulmonary edema. However, considerable central bronchial wall thickening suggests a significant chronic component B/l LE purulent cellulitis- legs with scratches (self inflicted) ; SP -wound cx MRSA -L foot tibia/fibula xray: No acute process -R foot tibia/fibula xray: No acute bony trauma Fever, recurrent- r/p bacteremia, line infection Leukocytosis, SP Acute encephalopathy (currently on deep coma)- likely multifactorial due to metabolic/toxic, anoxic encephalopathy- lower suspicion for infection meningoencephalitic process Acute respiratory failure- due to Afib w/ RVR- n ow intubated 03/08 after Code blue Afib w/ RVR Elevated LFTs, SP - HIDA inconclusive but low prob for acute cholecysitis -HIDA: Questionable very small tracer collection in the region of the gallbladder fossa on delayed images, could represent partial filling of a nondistended gallbladder but this is not conclusive. Acute cholecystitis doubtful but not conclusively excluded based on these images and prior ultrasound, which showed a nondistended gallbladder. Patent common bile duct -Abd US: Cholelithiasis. Borderline gallbladder wall thickening, could indicate early acute cholecystitis changes. Consider hepatobiliary nuclear scan if there is high clinical suspicion. Negative for dilated ducts Incidental finding bilateral pleural effusions -acute hep panel, HIV sc neg ZHAO, improving DM2 HTN CHF Schizoaffective disorder Plan: -Continue empiric IV Vancomycin #14/ for cellulitis -Cont Ertapenem d # 10/07 for ESBL E.coli PNA -03/09 SP ZOsyn #4 -03/06 SP Ceftriaxone #2 -03/03 SP Ancef #2 -03/01 SP Cefepime #2 -Bcx x2 -Remove femoral line -Plan for LP (patient cannot provide consent) -send for CSF analysis, culture, EBV/CMV/HSV/VZV PCR, VDRL, WNV ab\ -f/u cx -Monitor CBC/CMP, temperatures -wound care -Sx, GI, Neuro f/u Discussed with RN Subjective Allergies: Coded Allergies: No Known Allergies (Unverified , 02/16/18) Subjective Tm 101.2 remains intubated, Fio2 40 Objective Vital Signs Last 24 Hour Vital Signs Date Time Temp Pulse Resp B/P (MAP) Pulse Ox O2 Delivery O2 Flow Rate FiO2 03/15/18 09:40 77 17 40 03/15/18 08:52 88 130/71 03/15/18 08:52 85 03/15/18 07:35 85 14 40 03/15/18 07:00 82 15 111/67 (82) 97 03/15/18 06:16 110/75 03/15/18 06:00 99.0 78 16 104/75 (85) 98 03/15/18 05:13 79 14 40 03/15/18 05:00 82 15 108/67 (81) 97 03/15/18 04:00 81 18 116/69 (85) 98 03/15/18 04:00 80 03/15/18 04:00 Mechanical Ventilator Mechanical Ventilator 03/15/18 03:02 78 14 40 03/15/18 03:00 83 16 113/78 (90) 98 03/15/18 02:00 82 18 121/69 (86) 97 03/15/18 01:30 80 14 40 03/15/18 01:00 99.1 82 14 102/61 (75) 98 03/15/18 00:14 110/68 03/15/18 00:00 Mechanical Ventilator Mechanical Ventilator 03/15/18 00:00 77 03/15/18 00:00 83 18 110/68 (82) 97 03/14/18 23:00 79 15 106/63 (77) 97 03/14/18 22:53 78 14 40 03/14/18 22:00 82 14 107/54 (71) 96 03/14/18 22:00 99.8 03/14/18 21:11 90 135/87 03/14/18 21:07 88 18 40 03/14/18 21:00 99.8 89 19 135/87 (103) 98 03/14/18 20:00 85 03/14/18 20:00 Mechanical Ventilator Mechanical Ventilator 03/14/18 20:00 101.2 86 19 124/83 (97) 97 03/14/18 19:06 93 17 40 03/14/18 19:00 93 20 126/80 (95) 98 18 18:11 130/75 03/14/18 18:00 88 17 130/75 (93) 98 03/14/18 17:00 89 15 136/82 (100) 98 03/14/18 16:53 91 14 40 03/14/18 16:00 97.9 84 16 134/77 (96) 97 03/14/18 16:00 90 03/14/18 16:00 Mechanical Ventilator Mechanical Ventilator 03/14/18 15:00 87 15 141/85 (103) 97 03/14/18 14:51 86 19 40 03/14/18 14:00 89 21 122/87 (99) 97 03/14/18 13:21 89 18 40 03/14/18 13:20 40 03/14/18 13:00 87 20 135/79 (97) 96 03/14/18 12:00 99.1 86 28 111/82 (92) 96 03/14/18 12:00 Mechanical Ventilator Mechanical Ventilator 03/14/18 12:00 78 03/14/18 11:50 93/68 03/14/18 11:10 40 03/14/18 11:05 85 19 40 03/14/18 11:00 86 17 93/68 (76) 96 Height (Feet): 6 Height (Inches): 0.00 Weight (Pounds): 270 Objective General Appearance: WD/WN Lines, tubes and drains: peripheral HEENT: normocephalic, atraumatic Neck: non-tender, normal alignment Respiratory/Chest: chest wall non-tender, lungs clear Breasts: no masses Cardiovascular/Chest: normal peripheral pulses Abdomen: normal bowel sounds, non tender Extremities: B/l leg erythema, swelling, with scratches and some minimal drainage Laboratory Tests Test 03/15/18 04:00 03/15/18 09:40 White Blood Count 8.2 K/UL (4.8-10.8) Red Blood Count 4.88 M/UL (4.70-6.10) Hemoglobin 12.7 G/DL (14.2-18.0) L Hematocrit 40.3 % (42.0-52.0) L Mean Corpuscular Volume 83 FL (80-99) Mean Corpuscular Hemoglobin 26.0 PG (27.0-31.0) L Mean Corpuscular Hemoglobin Concent 31.5 G/DL (32.0-36.0) L Red Cell Distribution Width 17.6 % (11.6-14.8) H Platelet Count 239 K/UL (150-450) Mean Platelet Volume 8.0 FL (6.5-10.1) Neutrophils (%) (Auto) 75.6 % (45.0-75.0) H Lymphocytes (%) (Auto) 16.4 % (20.0-45.0) L Monocytes (%) (Auto) 5.7 % (1.0-10.0) Eosinophils (%) (Auto) 1.6 % (0.0-3.0) Basophils (%) (Auto) 0.7 % (0.0-2.0) Sodium Level 155 MMOL/L (136-145) H Potassium Level 3.9 MMOL/L (3.5-5.1) Chloride Level 120 MMOL/L (98-107) H Carbon Dioxide Level 29 MMOL/L (21-32) Anion Gap 6 mmol/L (5-15) Blood Urea Nitrogen 42 mg/dL (7-18) H Creatinine 1.4 MG/DL (0.55-1.30) H Estimat Glomerular Filtration Rate 52.6 mL/min (>60) Glucose Level 224 MG/DL (74-106) H Calcium Level 8.0 MG/DL (8.5-10.1) L Phosphorus Level 2.7 MG/DL (2.5-4.9) Magnesium Level 2.5 MG/DL (1.8-2.4) H Total Bilirubin 1.3 MG/DL (0.2-1.0) H Direct Bilirubin 0.8 MG/DL (0.0-0.3) H Aspartate Amino Transf (AST/SGOT) 24 U/L (15-37) Alanine Aminotransferase (ALT/SGPT) 27 U/L (12-78) Alkaline Phosphatase 215 U/L (46-116) H Total Protein 6.1 G/DL (6.4-8.2) L Albumin 1.5 G/DL (3.4-5.0) L Globulin 4.6 g/dL Albumin/Globulin Ratio 0.3 (1.0-2.7) L Arterial Blood pH 7.433 (7.350-7.450) Arterial Blood Partial Pressure CO2 39.9 mmHg (35.0-45.0) Arterial Blood Partial Pressure O2 84.8 mmHg (75.0-100.0) Arterial Blood HCO3 26.1 mmol/L (22.0-26.0) H Arterial Blood Oxygen Saturation 96.5 % (95-100) Arterial Blood Base Excess 1.8 (-2-2) Janes Test Positive Current Medications Medications (Trade) Dose Ordered Sig/Roseline Route PRN Reason Start Time Stop Time Status Last Admin Dose Admin Acetaminophen (Tylenol) 650 mg Q4H PRN ORAL fever (temp>100.5F) 03/08/18 23:45 03/30/18 19:44 03/14/18 21:20 Carvedilol (Coreg) 50 mg EVERY 12 HOURS ORAL 03/13/18 09:00 04/12/18 08:59 03/15/18 08:52 Chlorhexidine Gluconate (Ashley-Hex 2%) 1 applic DAILY@2000 TOPIC 03/09/18 20:00 04/01/18 19:59 03/14/18 21:10 Dextrose (Dextrose 50%) 25 ml Q30M PRN IV Hypoglycemia 03/08/18 23:00 03/30/18 13:59 Dextrose (Dextrose 50%) 50 ml Q30M PRN IV Hypoglycemia 03/08/18 23:00 03/30/18 13:59 Digoxin (Lanoxin) 0.125 mg DAILY IVP 03/09/18 09:00 04/02/18 14:21 03/15/18 08:52 Dopamine HCl/ Dextrose 250 ml @ 0 mls/hr Q24H IV 03/09/18 10:00 04/08/18 09:59 03/12/18 19:07 Ertapenem 1 gm/ Sodium Chloride 55 ml @ 110 mls/hr Q24H IVPB 03/09/18 12:00 03/15/18 23:59 03/14/18 11:49 Haloperidol Lactate (Haldol) 5 mg Q4H PRN IM Agitation 03/08/18 23:45 03/31/18 19:44 Hydralazine HCl (Apresoline) 25 mg Q6HR ORAL 03/09/18 00:00 04/04/18 18:21 03/15/18 06:16 Insulin Aspart (NovoLOG) EVERY 6 HOURS SUBQ 03/11/18 12:00 04/10/18 11:59 03/15/18 06:17 Lorazepam (Ativan 2mg/ml 1ml) 2 mg Q4H PRN IV For more severe Anxiety 03/08/18 23:15 03/15/18 23:14 03/12/18 16:55 Metoprolol Tartrate (Lopressor) 10 mg Q1H PRN IVP Heart rate >120 per minute 03/08/18 23:45 03/31/18 19:44 Morphine Sulfate (Morphine Sulfate) 4 mg Q4H PRN IVP For Pain 03/08/18 23:15 03/15/18 23:14 Nitroglycerin (Ntg) 0.4 mg Q5M PRN SL Prn Chest Pain 03/08/18 23:00 03/30/18 18:20 Ondansetron HCl (Zofran) 4 mg Q6H PRN IVP Nausea & Vomiting 03/09/18 01:45 04/05/18 19:44 Pantoprazole (Protonix) 40 mg DAILY IV 03/09/18 09:00 04/08/18 08:59 03/15/18 08:51 Polyethylene Glycol (Miralax) 17 gm DAILYPRN PRN ORAL Constipation 03/09/18 19:45 04/05/18 19:44 Vancomycin HCl (Vanco rx to dose) 1 ea DAILY PRN MISC rx protocol 03/09/18 09:00 04/05/18 19:44 Vancomycin/Sodium Chloride 250 ml @ 167 mls/hr Q12H IVPB 03/08/18 23:00 03/15/18 23:59 03/14/18 22:59 Susan Dennis M.D. Mar 15, 2018 10:31
--- NOTE | 2018-03-15 11:19 | GI Progress Note ---
Assessment/Plan Problems: (1) Dysphagia ICD Codes: R13.10 - Dysphagia, unspecified SNOMED: 32713587, 001626772 (2) Drug abuse ICD Codes: F19.10 - Other psychoactive substance abuse, uncomplicated SNOMED: 65167218 (3) Encounter for PEG (percutaneous endoscopic gastrostomy) ICD Codes: Z43.1 - Encounter for attention to gastrostomy SNOMED: 807854590, 398184351 (4) Diastolic CHF, chronic ICD Codes: I50.32 - Chronic diastolic (congestive) heart failure SNOMED: 23920524, 101569956 (5) Abnormal LFTs ICD Codes: R94.5 - Abnormal results of liver function studies SNOMED: 403714395 Status: progressing Status Narrative Discussed with Dr. Noe. Assessment/Plan us reviewed >> Cholelithiasis. Borderline gallbladder wall thickening, could indicate early acute cholecystitis changes. neg hepatitis panel HIDA negative LFTs still elevated, trend ST evaluation noted fu pulmonary >> currently on CPAP cont NGTFs, PEG if necessary patient now on Eliquis that needs to be held for 48 hours prior to any procedure electrolyte correction prn transfusions ppi fu labs The patient was seen and examined at bedside and all new and available data was reviewed in the patients chart. I agree with the above findings, impression and plan. (Patient seen earlier today. Signature stamp does not reflect patient encounter time.). - Khalif Noe MD Subjective Subjective limited Objective Last 24 Hour Vital Signs Date Time Temp Pulse Resp B/P (MAP) Pulse Ox O2 Delivery O2 Flow Rate FiO2 03/15/18 09:40 77 17 40 03/15/18 08:52 88 130/71 03/15/18 08:52 85 03/15/18 07:35 85 14 40 03/15/18 07:00 82 15 111/67 (82) 97 03/15/18 06:16 110/75 03/15/18 06:00 99.0 78 16 104/75 (85) 98 03/15/18 05:13 79 14 40 03/15/18 05:00 82 15 108/67 (81) 97 03/15/18 04:00 81 18 116/69 (85) 98 03/15/18 04:00 80 03/15/18 04:00 Mechanical Ventilator Mechanical Ventilator 03/15/18 03:02 78 14 40 03/15/18 03:00 83 16 113/78 (90) 98 03/15/18 02:00 82 18 121/69 (86) 97 03/15/18 01:30 80 14 40 03/15/18 01:00 99.1 82 14 102/61 (75) 98 03/15/18 00:14 110/68 03/15/18 00:00 Mechanical Ventilator Mechanical Ventilator 03/15/18 00:00 77 03/15/18 00:00 83 18 110/68 (82) 97 03/14/18 23:00 79 15 106/63 (77) 97 03/14/18 22:53 78 14 40 03/14/18 22:00 82 14 107/54 (71) 96 03/14/18 22:00 99.8 03/14/18 21:11 90 135/87 03/14/18 21:07 88 18 40 03/14/18 21:00 99.8 89 19 135/87 (103) 98 03/14/18 20:00 85 03/14/18 20:00 Mechanical Ventilator Mechanical Ventilator 03/14/18 20:00 101.2 86 19 124/83 (97) 97 03/14/18 19:06 93 17 40 03/14/18 19:00 93 20 126/80 (95) 98 03/14/18 18:11 130/75 03/14/18 18:00 88 17 130/75 (93) 98 03/14/18 17:00 89 15 136/82 (100) 98 03/14/18 16:53 91 14 40 03/14/18 16:00 97.9 84 16 134/77 (96) 97 03/14/18 16:00 90 03/14/18 16:00 Mechanical Ventilator Mechanical Ventilator 03/14/18 15:00 87 15 141/85 (103) 97 03/14/18 14:51 86 19 40 03/14/18 14:00 89 21 122/87 (99) 97 03/14/18 13:21 89 18 40 03/14/18 13:20 40 03/14/18 13:00 87 20 135/79 (97) 96 03/14/18 12:00 99.1 86 28 111/82 (92) 96 03/14/18 12:00 Mechanical Ventilator Mechanical Ventilator 03/14/18 12:00 78 03/14/18 11:50 93/68 Intake and Output 03/14/18 03/15/18 19:00 07:00 Intake Total 1890 ml 1280 ml Output Total 1310 ml 1200 ml Balance 580 ml 80 ml Free Water 750 ml 250 ml IV Total 360 ml 250 ml Tube Feeding 780 ml 780 ml Output Urine Total 1310 ml 1200 ml # Bowel Movements 2 Laboratory Tests Test 03/15/18 04:00 03/15/18 09:40 03/15/18 10:50 White Blood Count 8.2 K/UL (4.8-10.8) Red Blood Count 4.88 M/UL (4.70-6.10) Hemoglobin 12.7 G/DL (14.2-18.0) L Hematocrit 40.3 % (42.0-52.0) L Mean Corpuscular Volume 83 FL (80-99) Mean Corpuscular Hemoglobin 26.0 PG (27.0-31.0) L Mean Corpuscular Hemoglobin Concent 31.5 G/DL (32.0-36.0) L Red Cell Distribution Width 17.6 % (11.6-14.8) H Platelet Count 239 K/UL (150-450) Mean Platelet Volume 8.0 FL (6.5-10.1) Neutrophils (%) (Auto) 75.6 % (45.0-75.0) H Lymphocytes (%) (Auto) 16.4 % (20.0-45.0) L Monocytes (%) (Auto) 5.7 % (1.0-10.0) Eosinophils (%) (Auto) 1.6 % (0.0-3.0) Basophils (%) (Auto) 0.7 % (0.0-2.0) Sodium Level 155 MMOL/L (136-145) H Potassium Level 3.9 MMOL/L (3.5-5.1) Chloride Level 120 MMOL/L (98-107) H Carbon Dioxide Level 29 MMOL/L (21-32) Anion Gap 6 mmol/L (5-15) Blood Urea Nitrogen 42 mg/dL (7-18) H Creatinine 1.4 MG/DL (0.55-1.30) H Estimat Glomerular Filtration Rate 52.6 mL/min (>60) Glucose Level 224 MG/DL (74-106) H Calcium Level 8.0 MG/DL (8.5-10.1) L Phosphorus Level 2.7 MG/DL (2.5-4.9) Magnesium Level 2.5 MG/DL (1.8-2.4) H Total Bilirubin 1.3 MG/DL (0.2-1.0) H Direct Bilirubin 0.8 MG/DL (0.0-0.3) H Aspartate Amino Transf (AST/SGOT) 24 U/L (15-37) Alanine Aminotransferase (ALT/SGPT) 27 U/L (12-78) Alkaline Phosphatase 215 U/L (46-116) H Total Protein 6.1 G/DL (6.4-8.2) L Albumin 1.5 G/DL (3.4-5.0) L Globulin 4.6 g/dL Albumin/Globulin Ratio 0.3 (1.0-2.7) L Arterial Blood pH 7.433 (7.350-7.450) 7.435 (7.350-7.450) Arterial Blood Partial Pressure CO2 39.9 mmHg (35.0-45.0) 36.7 mmHg (35.0-45.0) Arterial Blood Partial Pressure O2 84.8 mmHg (75.0-100.0) 92.3 mmHg (75.0-100.0) Arterial Blood HCO3 26.1 mmol/L (22.0-26.0) H 24.1 mmol/L (22.0-26.0) Arterial Blood Oxygen Saturation 96.5 % (95-100) 97.1 % (95-100) Arterial Blood Base Excess 1.8 (-2-2) 0.2 (-2-2) Janes Test Positive Positive Height (Feet): 6 Height (Inches): 0.00 Weight (Pounds): 270 General Appearance: no apparent distress Cardiovascular: normal rate Respiratory/Chest: normal breath sounds, no respiratory distress Abdominal Exam: normal bowel sounds, non tender, soft, other - NGT Extremities: non-tender Efraín Hernandez NP Mar 15, 2018 11:18
[2018-03-15] MEDS: Vancomycin 750mg/NS 250ml 250 ML IVPB SCH (11:21)
--- NOTE | 2018-03-15 11:26 | Diagnostic Imaging Report ---
APPROVED REPORT CPT Code: 46289 Symptoms Comments: Hx of swelling Wounds RIGHT LEG: Common femoral artery waveform analysis is within normal limits at rest. Color flow duplex sonography reveals minimal calcification throughout the superficial femoral and popliteal arteries. There is no evidence of stenosis or occlusion within these segments. The tibioperoneal trunks are not well visualized. The anterior and dorsalis pedis arteries are minimally calcified with triphasic flow. The distal posterior tibial artery was not well visualized, due to calcification. The mid posterior tibial artery is moderately calcified, monophasic with low amplitude Doppler flow. Doppler tibial artery waveform analysis is compatible with mild ischemia at rest. LEFT LEG: Common femoral artery waveform analysis is within normal limits at rest. Color flow duplex sonography reveals minimal calcification throughout the superficial femoral and popliteal arteries. There is no evidence of stenosis or occlusion within these segments. The tibioperoneal trunks are not well visualized. The anterior and dorsalis pedis arteries are minimally calcified with triphasic flow. The distal posterior tibial artery was not well visualized, due to calcification. The mid posterior tibial artery is moderately calcified, monophasic with low amplitude Doppler flow. Doppler tibial artery waveform analysis is compatible with mild ischemia at rest.
[2018-03-15] MEDS: Ertapenem 1 GM in NS 55 ML IVPB SCH (12:00)
--- NOTE | 2018-03-15 13:54 | General Progress Note ---
Assessment/Plan Problem List: (1) Diabetes ICD Codes: E11.9 - Type 2 diabetes mellitus without complications SNOMED: 25789384 (2) Cellulitis ICD Codes: L03.90 - Cellulitis, unspecified SNOMED: 585234139 (3) Acute renal failure ICD Codes: N17.9 - Acute kidney failure, unspecified SNOMED: 90892192 (4) Rapid atrial fibrillation ICD Codes: I48.91 - Unspecified atrial fibrillation SNOMED: 373863977 Status: unchanged Assessment/Plan vent cardio f/u abx cbc bmp am ltach eval Subjective Constitutional: Reports: weakness Allergies: Coded Allergies: No Known Allergies (Unverified , 02/16/18) All Systems: reviewed and negative except above Subjective pulm mask ng in icu Objective Last 24 Hour Vital Signs Date Time Temp Pulse Resp B/P (MAP) Pulse Ox O2 Delivery O2 Flow Rate FiO2 03/15/18 12:00 111/60 03/15/18 11:46 Venturi Mask 15.0 40 03/15/18 11:00 80 15 111/60 (77) 97 03/15/18 10:00 82 16 119/72 (88) 97 03/15/18 10:00 130/71 03/15/18 09:40 77 17 40 03/15/18 09:00 77 15 110/67 (81) 97 03/15/18 08:52 88 130/71 03/15/18 08:52 85 03/15/18 08:04 40 03/15/18 08:00 98.6 78 16 120/75 (90) 98 03/15/18 08:00 Mechanical Ventilator Mechanical Ventilator 03/15/18 08:00 82 03/15/18 07:35 85 14 40 03/15/18 07:00 82 15 111/67 (82) 97 03/15/18 06:16 110/75 03/15/18 06:00 99.0 78 16 104/75 (85) 98 03/15/18 05:13 79 14 40 03/15/18 05:00 82 15 108/67 (81) 97 03/15/18 04:00 81 18 116/69 (85) 98 03/15/18 04:00 80 03/15/18 04:00 Mechanical Ventilator Mechanical Ventilator 03/15/18 03:02 78 14 40 03/15/18 03:00 83 16 113/78 (90) 98 03/15/18 02:00 82 18 121/69 (86) 97 03/15/18 01:30 80 14 40 03/15/18 01:00 99.1 82 14 102/61 (75) 98 03/15/18 00:14 110/68 03/15/18 00:00 Mechanical Ventilator Mechanical Ventilator 03/15/18 00:00 77 03/15/18 00:00 83 18 110/68 (82) 97 03/14/18 23:00 79 15 106/63 (77) 97 03/14/18 22:53 78 14 40 03/14/18 22:00 82 14 107/54 (71) 96 03/14/18 22:00 99.8 03/14/18 21:11 90 135/87 03/14/18 21:07 88 18 40 03/14/18 21:00 99.8 89 19 135/87 (103) 98 03/14/18 20:00 85 03/14/18 20:00 Mechanical Ventilator Mechanical Ventilator 03/14/18 20:00 101.2 86 19 124/83 (97) 97 03/14/18 19:06 93 17 40 03/14/18 19:00 93 20 126/80 (95) 98 03/14/18 18:11 130/75 03/14/18 18:00 88 17 130/75 (93) 98 03/14/18 17:00 89 15 136/82 (100) 98 03/14/18 16:53 91 14 40 03/14/18 16:00 97.9 84 16 134/77 (96) 97 03/14/18 16:00 90 03/14/18 16:00 Mechanical Ventilator Mechanical Ventilator 03/14/18 15:00 87 15 141/85 (103) 97 03/14/18 14:51 86 19 40 03/14/18 14:00 89 21 122/87 (99) 97 Intake and Output 03/14/18 03/15/18 19:00 07:00 Intake Total 1890 ml 1280 ml Output Total 1310 ml 1200 ml Balance 580 ml 80 ml Free Water 750 ml 250 ml IV Total 360 ml 250 ml Tube Feeding 780 ml 780 ml Output Urine Total 1310 ml 1200 ml # Bowel Movements 2 Laboratory Tests 03/15/18 04:00: White Blood Count 8.2, Red Blood Count 4.88, Hemoglobin 12.7L, Hematocrit 40.3L , Mean Corpuscular Volume 83, Mean Corpuscular Hemoglobin 26.0L, Mean Corpuscular Hemoglobin Concent 31.5L, Red Cell Distribution Width 17.6H, Platelet Count 239, Mean Platelet Volume 8.0, Neutrophils (%) (Auto) 75.6H, Lymphocytes (%) (Auto) 16.4L, Monocytes (%) (Auto) 5.7, Eosinophils (%) (Auto) 1.6, Basophils (%) (Auto) 0.7, Sodium Level 155H, Potassium Level 3.9, Chloride Level 120H, Carbon Dioxide Level 29, Anion Gap 6, Blood Urea Nitrogen 42H, Creatinine 1.4H, Estimat Glomerular Filtration Rate 52.6, Glucose Level 224H, Calcium Level 8.0L, Phosphorus Level 2.7, Magnesium Level 2.5H, Total Bilirubin 1.3H, Direct Bilirubin 0.8H, Aspartate Amino Transf (AST/SGOT) 24, Alanine Aminotransferase (ALT/SGPT) 27, Alkaline Phosphatase 215H, Total Protein 6.1L, Albumin 1.5L, Globulin 4.6, Albumin/Globulin Ratio 0.3L 03/15/18 09:40: Arterial Blood pH 7.433, Arterial Blood Partial Pressure CO2 39.9, Arterial Blood Partial Pressure O2 84.8, Arterial Blood HCO3 26.1H, Arterial Blood Oxygen Saturation 96.5, Arterial Blood Base Excess 1.8, Janes Test Positive 03/15/18 10:50: Arterial Blood pH 7.435, Arterial Blood Partial Pressure CO2 36.7, Arterial Blood Partial Pressure O2 92.3, Arterial Blood HCO3 24.1, Arterial Blood Oxygen Saturation 97.1, Arterial Blood Base Excess 0.2, Janes Test Positive Height (Feet): 6 Height (Inches): 0.00 Weight (Pounds): 270 General Appearance: lethargic EENT: normal ENT inspection Neck: normal alignment Cardiovascular: normal peripheral pulses, normal rate, regular rhythm Respiratory/Chest: chest wall non-tender, decreased breath sounds Abdomen: normal bowel sounds, non tender, soft Extremities: normal inspection Edema: no edema noted Arm (L), no edema noted Arm (R), no edema noted Leg (L), no edema noted Leg (R), no edema noted Pedal (L), no edema noted Pedal (R), no edema noted Generalized Neurologic: motor weakness Skin: normal pigmentation, warm/dry Mick Garcia DO Mar 15, 2018 13:54
[2018-03-15] MEDS: Dyna-Hex 2% Top Sol 2oz TOPIC SCH (20:24)
[2018-03-15] MEDS ORDERED: Nitroglycerin Subl 0.4mg tab SL PRN (21:00)
[2018-03-15] MEDS ORDERED: LORazepam Inj 2mg/ml 1ml IV PRN (21:00)
[2018-03-15] MEDS ORDERED: Morphine Sulfate 4mg/ml Inj (IV/IM USE ONLY) IVP PRN (21:00)
[2018-03-15] MEDS ORDERED: Miralax 17gm pkt ORAL PRN (21:00)
[2018-03-15] MEDS ORDERED: Haloperidol 5mg/ml Inj IM PRN (21:00)
[2018-03-15] MEDS ORDERED: Metoprolol 5mg/5ml Inj IVP PRN (21:45)
[2018-03-15] MEDS ORDERED: Vancomycin 750mg/NS 250ml 250 ML IVPB SCH (23:00)
--- NOTE | 2018-03-15 23:58 | Cardiology Progress Note ---
Assessment/Plan Assessment/Plan 1. Atrial fibrillation with controlled ventricular response, continue carvedilol and digoxin. 2. 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 3. Severe mitral regurgitation, afterload reduction with hydralazine. 4. Acute respiratory failure, extubated on NC oxygen. Subjective Subjective Atrial fibrillation with controlled ventricular response at rate of 80. Extubated on NC O2. Objective Last 24 Hour Vital Signs Date Time Temp Pulse Resp B/P (MAP) Pulse Ox O2 Delivery O2 Flow Rate FiO2 03/15/18 21:00 98.6 80 16 135/85 (102) 96 03/15/18 20:25 78 136/91 03/15/18 20:00 Nasal Cannula 4.0 Nasal Cannula 4.0 Nasal Cannula 4.0 03/15/18 20:00 98.6 78 16 136/91 (106) 98 03/15/18 20:00 75 03/15/18 19:18 100 Venturi Mask 10.0 40 03/15/18 19:18 Venturi Mask 10.0 40 03/15/18 19:00 82 15 122/70 (87) 97 03/15/18 18:00 85 15 116/82 (93) 97 03/15/18 18:00 125/79 03/15/18 17:00 80 15 110/79 (89) 97 03/15/18 16:00 Nasal Cannula 4.0 Nasal Cannula 4.0 Nasal Cannula 4.0 03/15/18 16:00 88 03/15/18 16:00 98.6 78 16 119/75 (90) 98 03/15/18 15:00 82 15 120/77 (91) 97 03/15/18 14:00 80 15 125/79 (94) 97 03/15/18 13:00 82 16 115/60 (78) 97 03/15/18 12:00 111/60 03/15/18 12:00 Simple Mask 10.0 Simple Mask 10.0 Simple Mask 10.0 03/15/18 12:00 98.6 78 16 120/75 (90) 98 03/15/18 12:00 79 03/15/18 11:46 Venturi Mask 15.0 40 03/15/18 11:46 Venturi Mask 10.0 40 03/15/18 11:46 96 Venturi Mask 10.0 40 03/15/18 11:00 80 15 111/60 (77) 97 03/15/18 10:00 82 16 119/72 (88) 97 03/15/18 10:00 130/71 03/15/18 09:40 77 17 40 03/15/18 09:00 77 15 110/67 (81) 97 03/15/18 08:52 88 130/71 03/15/18 08:52 85 03/15/18 08:04 40 03/15/18 08:00 98.6 78 16 120/75 (90) 98 03/15/18 08:00 Mechanical Ventilator Mechanical Ventilator 03/15/18 08:00 82 03/15/18 07:35 85 14 40 03/15/18 07:00 82 15 111/67 (82) 97 03/15/18 06:16 110/75 03/15/18 06:00 99.0 78 16 104/75 (85) 98 03/15/18 05:13 79 14 40 03/15/18 05:00 82 15 108/67 (81) 97 03/15/18 04:00 81 18 116/69 (85) 98 03/15/18 04:00 80 03/15/18 04:00 Mechanical Ventilator Mechanical Ventilator 03/15/18 03:02 78 14 40 03/15/18 03:00 83 16 113/78 (90) 98 03/15/18 02:00 82 18 121/69 (86) 97 03/15/18 01:30 80 14 40 03/15/18 01:00 99.1 82 14 102/61 (75) 98 03/15/18 00:14 110/68 03/15/18 00:00 Mechanical Ventilator Mechanical Ventilator 03/15/18 00:00 77 03/15/18 00:00 83 18 110/68 (82) 97 Intake and Output 03/14/18 03/15/18 19:00 07:00 Intake Total 1890 ml 1280 ml Output Total 1310 ml 1200 ml Balance 580 ml 80 ml Free Water 750 ml 250 ml IV Total 360 ml 250 ml Tube Feeding 780 ml 780 ml Output Urine Total 1310 ml 1200 ml # Bowel Movements 2 2D Echo: LVEF 25%, Bi-atrial enlargement, Severe MR, RVSP 24 mmHg, RAP 15 mmHg Laboratory Tests Test 03/15/18 04:00 03/15/18 09:40 03/15/18 10:50 White Blood Count 8.2 K/UL (4.8-10.8) Red Blood Count 4.88 M/UL (4.70-6.10) Hemoglobin 12.7 G/DL (14.2-18.0) L Hematocrit 40.3 % (42.0-52.0) L Mean Corpuscular Volume 83 FL (80-99) Mean Corpuscular Hemoglobin 26.0 PG (27.0-31.0) L Mean Corpuscular Hemoglobin Concent 31.5 G/DL (32.0-36.0) L Red Cell Distribution Width 17.6 % (11.6-14.8) H Platelet Count 239 K/UL (150-450) Mean Platelet Volume 8.0 FL (6.5-10.1) Neutrophils (%) (Auto) 75.6 % (45.0-75.0) H Lymphocytes (%) (Auto) 16.4 % (20.0-45.0) L Monocytes (%) (Auto) 5.7 % (1.0-10.0) Eosinophils (%) (Auto) 1.6 % (0.0-3.0) Basophils (%) (Auto) 0.7 % (0.0-2.0) Sodium Level 155 MMOL/L (136-145) H Potassium Level 3.9 MMOL/L (3.5-5.1) Chloride Level 120 MMOL/L (98-107) H Carbon Dioxide Level 29 MMOL/L (21-32) Anion Gap 6 mmol/L (5-15) Blood Urea Nitrogen 42 mg/dL (7-18) H Creatinine 1.4 MG/DL (0.55-1.30) H Estimat Glomerular Filtration Rate 52.6 mL/min (>60) Glucose Level 224 MG/DL (74-106) H Calcium Level 8.0 MG/DL (8.5-10.1) L Phosphorus Level 2.7 MG/DL (2.5-4.9) Magnesium Level 2.5 MG/DL (1.8-2.4) H Total Bilirubin 1.3 MG/DL (0.2-1.0) H Direct Bilirubin 0.8 MG/DL (0.0-0.3) H Aspartate Amino Transf (AST/SGOT) 24 U/L (15-37) Alanine Aminotransferase (ALT/SGPT) 27 U/L (12-78) Alkaline Phosphatase 215 U/L (46-116) H Total Protein 6.1 G/DL (6.4-8.2) L Albumin 1.5 G/DL (3.4-5.0) L Globulin 4.6 g/dL Albumin/Globulin Ratio 0.3 (1.0-2.7) L Arterial Blood pH 7.433 (7.350-7.450) 7.435 (7.350-7.450) Arterial Blood Partial Pressure CO2 39.9 mmHg (35.0-45.0) 36.7 mmHg (35.0-45.0) Arterial Blood Partial Pressure O2 84.8 mmHg (75.0-100.0) 92.3 mmHg (75.0-100.0) Arterial Blood HCO3 26.1 mmol/L (22.0-26.0) H 24.1 mmol/L (22.0-26.0) Arterial Blood Oxygen Saturation 96.5 % (95-100) 97.1 % (95-100) Arterial Blood Base Excess 1.8 (-2-2) 0.2 (-2-2) Janes Test Positive Positive Objective HEENT: Atraumatic and normocephalic. Anicteric. Pupils are equal, round, and reactive to light and accommodation. Extraocular muscles intact. NECK: JVP elevated about 5cm. No carotid bruits. Carotid upstrokes 2+ bilaterally. CARDIOVASCULAR: Normal S1, S2. Irregularly irregular rhythm. 2/6 Holosystolic murmur, gallop, or rub. LUNGS: Diminished BS both lungs. ABDOMEN: Soft, nontender, and nondistended. No hepatosplenomegaly. Positive bowel sounds. EXTREMITIES: There is 1+ bilateral lower extremity edema with ulcerations. Sudarshan Stuart MD Mar 15, 2018 23:58
[2018-03-16] VITALS (7 sets, daily range): BP systolic 121–145; BP diastolic 64–92
[2018-03-16] MEDS: NovoLOG Insulin Flexpen SUBQ SCH ×5 (00:05→23:38)
[2018-03-16] MEDS: HydrALAZINE 25mg tab ORAL SCH ×5 (00:05→23:32)
[2018-03-16 05:26] LABS: BASOPHILS % (AUTO) 0.8 % (0.0-2.0); EOSINOPHILS % (AUTO) 1.9 % (0.0-3.0); HEMOGLOBIN 13.4 G/DL (14.2-18.0); LYMPHOCYTES % (AUTO) 17.6 % (20.0-45.0); MEAN CORPUSCULAR VOLUME 83 FL (80-99); MONOCYTES % (AUTO) 5.6 % (1.0-10.0); PLATELET COUNT 263 K/UL (150-450); RED CELL DISTRIBUTION WIDTH 17.5 % (11.6-14.8); WHITE BLOOD COUNT 8.6 K/UL (4.8-10.8)
[2018-03-16 06:03] LABS: ALANINE AMINOTRANSFERASE 26 U/L (12-78); ALBUMIN 1.6 G/DL (3.4-5.0); ALBUMIN/GLOBULIN RATIO 0.4 (1.0-2.7); ALKALINE PHOSPHATASE 216 U/L (46-116); ANION GAP 8 mmol/L (5-15); ASPARTATE AMINO TRANSFERASE 16 U/L (15-37); BILIRUBIN,TOTAL 1.3 MG/DL (0.2-1.0); BLOOD UREA NITROGEN 37 mg/dL (7-18); CALCIUM 7.8 MG/DL (8.5-10.1); CARBON DIOXIDE 26 MMOL/L (21-32); CHLORIDE 121 MMOL/L (98-107); CREATININE 1.3 MG/DL (0.55-1.30); PHOSPHORUS 2.6 MG/DL (2.5-4.9); POTASSIUM 4.1 MMOL/L (3.5-5.1); SODIUM 155 MMOL/L (136-145)
[2018-03-16 06:40] LABS: BILIRUBIN,DIRECT 0.9 MG/DL (0.0-0.3)
[2018-03-16] MEDS: Pantoprazole Inj IV SCH (09:13)
[2018-03-16] MEDS: Digoxin 0.5mg/2ml Inj IVP SCH (09:14)
[2018-03-16] MEDS: Carvedilol 25mg Tab ORAL SCH ×2 (09:15→20:13)
[2018-03-16] MEDS ORDERED: DOPamine 400mg/250ml 250 ML IV SCH (10:00)
[2018-03-16] MEDS ORDERED: NS 275ml ONE (10:36)
[2018-03-16] MEDS ORDERED: Sterile Water Irrig 1000ml IRRIG ONE (10:36)
[2018-03-16] MEDS ORDERED: D5W 275ml ONE (10:36)
--- NOTE | 2018-03-16 11:00 | Pulmonology Progress Note ---
Assessment/Plan Problems: (1) Acute encephalopathy (2) Diastolic CHF, chronic (3) Rapid atrial fibrillation (4) Diabetes (5) Cellulitis Assessment/Plan awake, comfortable swallow study check electrolytes all notes reviewed iv abx EEG. heart rate controlled. Subjective ROS Limited/Unobtainable: No Interval Events: tolerating extubation Constitutional: Reports: no symptoms HEENT: Repors: no symptoms Respiratory: Reports: no symptoms Allergies: Coded Allergies: No Known Allergies (Unverified , 02/16/18) Objective Last 24 Hour Vital Signs Date Time Temp Pulse Resp B/P (MAP) Pulse Ox O2 Delivery O2 Flow Rate FiO2 03/16/18 09:15 84 139/75 03/16/18 09:14 84 03/16/18 08:00 98.2 84 18 139/75 (96) 98 03/16/18 07:50 77 03/16/18 06:11 138/92 03/16/18 04:00 81 03/16/18 04:00 97.7 82 18 138/92 (107) 98 03/16/18 04:00 Nasal Cannula 4.0 Nasal Cannula 4.0 Nasal Cannula 4.0 03/16/18 03:51 3.0 03/16/18 00:05 135/88 03/16/18 00:00 82 03/16/18 00:00 98.7 80 16 135/88 (104) 100 03/16/18 00:00 Nasal Cannula 4.0 Nasal Cannula 4.0 Nasal Cannula 4.0 03/15/18 21:00 98.6 80 16 135/85 (102) 96 03/15/18 20:25 78 136/91 03/15/18 20:00 Nasal Cannula 4.0 Nasal Cannula 4.0 Nasal Cannula 4.0 03/15/18 20:00 98.6 78 16 136/91 (106) 98 03/15/18 20:00 75 03/15/18 19:18 100 Venturi Mask 10.0 40 03/15/18 19:18 Venturi Mask 10.0 40 03/15/18 19:00 82 15 122/70 (87) 97 03/15/18 18:00 85 15 116/82 (93) 97 03/15/18 18:00 125/79 03/15/18 17:00 80 15 110/79 (89) 97 03/15/18 16:00 Nasal Cannula 4.0 Nasal Cannula 4.0 Nasal Cannula 4.0 03/15/18 16:00 88 03/15/18 16:00 98.6 78 16 119/75 (90) 98 03/15/18 15:00 82 15 120/77 (91) 97 03/15/18 14:00 80 15 125/79 (94) 97 03/15/18 13:00 82 16 115/60 (78) 97 03/15/18 12:00 111/60 03/15/18 12:00 Simple Mask 10.0 Simple Mask 10.0 Simple Mask 10.0 03/15/18 12:00 98.6 78 16 120/75 (90) 98 03/15/18 12:00 79 03/15/18 11:46 Venturi Mask 15.0 40 03/15/18 11:46 Venturi Mask 10.0 40 03/15/18 11:46 96 Venturi Mask 10.0 40 03/15/18 11:00 80 15 111/60 (77) 97 Intake and Output 03/15/18 03/16/18 19:00 07:00 Intake Total 1085 ml 1830.000 ml Output Total 1060 ml 1050 ml Balance 25 ml 780.000 ml Free Water 800 ml IV Total 305 ml 250.000 ml Tube Feeding 780 ml 780 ml Output Urine Total 1060 ml 1050 ml General Appearance: WD/WN HEENT: normocephalic, atraumatic Respiratory/Chest: chest wall non-tender, lungs clear Cardiovascular: normal peripheral pulses, normal rate Abdomen: normal bowel sounds Extremities: no cyanosis Skin: no rash 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 Laboratory Tests 03/16/18 04:00: White Blood Count 8.6, Red Blood Count 5.20, Hemoglobin 13.4L, Hematocrit 43.0, Mean Corpuscular Volume 83, Mean Corpuscular Hemoglobin 25.8L, Mean Corpuscular Hemoglobin Concent 31.2L, Red Cell Distribution Width 17.5H, Platelet Count 263 , Mean Platelet Volume 7.9, Neutrophils (%) (Auto) 74.0, Lymphocytes (%) (Auto) 17.6L, Monocytes (%) (Auto) 5.6, Eosinophils (%) (Auto) 1.9, Basophils (%) (Auto ) 0.8, Sodium Level 155H, Potassium Level 4.1, Chloride Level 121H, Carbon Dioxide Level 26, Anion Gap 8, Blood Urea Nitrogen 37H, Creatinine 1.3, Estimat Glomerular Filtration Rate 57.3, Glucose Level 209H, Calcium Level 7.8L, Phosphorus Level 2.6, Magnesium Level 2.2, Total Bilirubin 1.3H, Direct Bilirubin 0.9H, Aspartate Amino Transf (AST/SGOT) 16, Alanine Aminotransferase ( ALT/SGPT) 26, Alkaline Phosphatase 216H, Total Protein 5.7L, Albumin 1.6L, Globulin 4.1, Albumin/Globulin Ratio 0.4L Current Medications Medications (Trade) Dose Ordered Sig/Roseline Route PRN Reason Start Time Stop Time Status Last Admin Dose Admin Acetaminophen (Tylenol) 650 mg Q4H PRN ORAL fever (temp>100.5F) 03/15/18 21:00 03/30/18 20:59 Carvedilol (Coreg) 50 mg EVERY 12 HOURS ORAL 03/16/18 09:00 04/15/18 08:59 03/16/18 09:15 Chlorhexidine Gluconate (Ashley-Hex 2%) 1 applic DAILY@1999 TOPIC 03/16/18 20:00 04/01/18 19:59 Dextrose (Dextrose 50%) 25 ml Q30M PRN IV Hypoglycemia 03/15/18 21:00 03/30/18 13:59 Dextrose (Dextrose 50%) 50 ml Q30M PRN IV Hypoglycemia 03/15/18 21:00 03/30/18 13:59 Digoxin (Lanoxin) 0.125 mg DAILY IVP 03/16/18 09:00 04/02/18 14:21 03/16/18 09:14 Ertapenem 1 gm/ Sodium Chloride 55 ml @ 110 mls/hr Q24H IVPB 03/16/18 12:00 03/16/18 23:59 Haloperidol Lactate (Haldol) 5 mg Q4H PRN IM Agitation 03/15/18 21:00 03/31/18 20:59 Hydralazine HCl (Apresoline) 25 mg Q6HR ORAL 03/16/18 00:00 04/15/18 00:00 03/16/18 06:11 Insulin Aspart (NovoLOG) EVERY 6 HOURS SUBQ 03/16/18 00:00 04/10/18 11:59 03/16/18 06:15 Lorazepam (Ativan 2mg/ml 1ml) 2 mg Q4H PRN IV For more severe Anxiety 03/15/18 21:00 03/16/18 20:59 Metoprolol Tartrate (Lopressor) 10 mg Q1H PRN IVP Heart rate >120 per minute 03/15/18 21:45 03/31/18 19:44 Morphine Sulfate (Morphine Sulfate) 4 mg Q4H PRN IVP For Pain 03/15/18 21:00 03/16/18 20:59 Nitroglycerin (Ntg) 0.4 mg Q5M PRN SL Prn Chest Pain 03/15/18 21:00 03/30/18 18:20 Ondansetron HCl (Zofran) 4 mg Q6H PRN IVP Nausea & Vomiting 03/15/18 21:00 04/14/18 20:59 Pantoprazole (Protonix) 40 mg DAILY IV 03/16/18 09:00 04/08/18 08:59 03/16/18 09:13 Polyethylene Glycol (Miralax) 17 gm DAILYPRN PRN ORAL Constipation 03/15/18 21:00 04/14/18 20:59 Vancomycin HCl (Vanco rx to dose) 1 ea DAILY PRN MISC rx protocol 03/15/18 21:00 03/16/18 20:59 Sunita Sahni MD Mar 16, 2018 11:00
--- NOTE | 2018-03-16 11:36 | General Progress Note ---
Assessment/Plan Problem List: (1) Diabetes ICD Codes: E11.9 - Type 2 diabetes mellitus without complications SNOMED: 94135258 (2) Cellulitis ICD Codes: L03.90 - Cellulitis, unspecified SNOMED: 144983870 (3) Acute renal failure ICD Codes: N17.9 - Acute kidney failure, unspecified SNOMED: 69018162 (4) Rapid atrial fibrillation ICD Codes: I48.91 - Unspecified atrial fibrillation SNOMED: 493061544 Status: unchanged Assessment/Plan vent cardio f/u abx cbc bmp am ltach eval Subjective Constitutional: Reports: weakness Allergies: Coded Allergies: No Known Allergies (Unverified , 02/16/18) All Systems: reviewed and negative except above Subjective o2nc ng sleeping Objective Last 24 Hour Vital Signs Date Time Temp Pulse Resp B/P (MAP) Pulse Ox O2 Delivery O2 Flow Rate FiO2 03/16/18 09:15 84 139/75 03/16/18 09:14 84 03/16/18 08:00 98.2 84 18 139/75 (96) 98 03/16/18 07:50 77 03/16/18 06:11 138/92 03/16/18 04:00 81 03/16/18 04:00 97.7 82 18 138/92 (107) 98 03/16/18 04:00 Nasal Cannula 4.0 Nasal Cannula 4.0 Nasal Cannula 4.0 03/16/18 03:51 3.0 03/16/18 00:05 135/88 03/16/18 00:00 82 03/16/18 00:00 98.7 80 16 135/88 (104) 100 03/16/18 00:00 Nasal Cannula 4.0 Nasal Cannula 4.0 Nasal Cannula 4.0 03/15/18 21:00 98.6 80 16 135/85 (102) 96 03/15/18 20:25 78 136/91 03/15/18 20:00 Nasal Cannula 4.0 Nasal Cannula 4.0 Nasal Cannula 4.0 03/15/18 20:00 98.6 78 16 136/91 (106) 98 03/15/18 20:00 75 03/15/18 19:18 100 Venturi Mask 10.0 40 03/15/18 19:18 Venturi Mask 10.0 40 03/15/18 19:00 82 15 122/70 (87) 97 03/15/18 18:00 85 15 116/82 (93) 97 03/15/18 18:00 125/79 03/15/18 17:00 80 15 110/79 (89) 97 03/15/18 16:00 Nasal Cannula 4.0 Nasal Cannula 4.0 Nasal Cannula 4.0 03/15/18 16:00 88 03/15/18 16:00 98.6 78 16 119/75 (90) 98 03/15/18 15:00 82 15 120/77 (91) 97 03/15/18 14:00 80 15 125/79 (94) 97 03/15/18 13:00 82 16 115/60 (78) 97 03/15/18 12:00 111/60 03/15/18 12:00 Simple Mask 10.0 Simple Mask 10.0 Simple Mask 10.0 03/15/18 12:00 98.6 78 16 120/75 (90) 98 03/15/18 12:00 79 03/15/18 11:46 Venturi Mask 15.0 40 03/15/18 11:46 Venturi Mask 10.0 40 03/15/18 11:46 96 Venturi Mask 10.0 40 Intake and Output 03/15/18 03/16/18 19:00 07:00 Intake Total 1085 ml 1830.000 ml Output Total 1060 ml 1050 ml Balance 25 ml 780.000 ml Free Water 800 ml IV Total 305 ml 250.000 ml Tube Feeding 780 ml 780 ml Output Urine Total 1060 ml 1050 ml Laboratory Tests 03/16/18 04:00: White Blood Count 8.6, Red Blood Count 5.20, Hemoglobin 13.4L, Hematocrit 43.0, Mean Corpuscular Volume 83, Mean Corpuscular Hemoglobin 25.8L, Mean Corpuscular Hemoglobin Concent 31.2L, Red Cell Distribution Width 17.5H, Platelet Count 263 , Mean Platelet Volume 7.9, Neutrophils (%) (Auto) 74.0, Lymphocytes (%) (Auto) 17.6L, Monocytes (%) (Auto) 5.6, Eosinophils (%) (Auto) 1.9, Basophils (%) (Auto ) 0.8, Sodium Level 155H, Potassium Level 4.1, Chloride Level 121H, Carbon Dioxide Level 26, Anion Gap 8, Blood Urea Nitrogen 37H, Creatinine 1.3, Estimat Glomerular Filtration Rate 57.3, Glucose Level 209H, Calcium Level 7.8L, Phosphorus Level 2.6, Magnesium Level 2.2, Total Bilirubin 1.3H, Direct Bilirubin 0.9H, Aspartate Amino Transf (AST/SGOT) 16, Alanine Aminotransferase ( ALT/SGPT) 26, Alkaline Phosphatase 216H, Total Protein 5.7L, Albumin 1.6L, Globulin 4.1, Albumin/Globulin Ratio 0.4L Height (Feet): 6 Height (Inches): 0.00 Weight (Pounds): 270 General Appearance: lethargic EENT: normal ENT inspection Neck: normal alignment Cardiovascular: normal peripheral pulses, normal rate, regular rhythm Respiratory/Chest: chest wall non-tender, decreased breath sounds Abdomen: normal bowel sounds, non tender, soft Extremities: normal inspection Edema: no edema noted Arm (L), no edema noted Arm (R), no edema noted Leg (L), no edema noted Leg (R), no edema noted Pedal (L), no edema noted Pedal (R), no edema noted Generalized Neurologic: disoriented Skin: normal pigmentation, warm/dry Mick Garcia DO Mar 16, 2018 11:36
[2018-03-16] MEDS ORDERED: Ertapenem 1 GM in NS 55 ML IVPB SCH (12:00)
--- NOTE | 2018-03-16 12:30 | GI Progress Note ---
Assessment/Plan Problems: (1) Dysphagia ICD Codes: R13.10 - Dysphagia, unspecified SNOMED: 17573396, 933012408 (2) Drug abuse ICD Codes: F19.10 - Other psychoactive substance abuse, uncomplicated SNOMED: 25856535 (3) Encounter for PEG (percutaneous endoscopic gastrostomy) ICD Codes: Z43.1 - Encounter for attention to gastrostomy SNOMED: 911801677, 213365968 (4) Diastolic CHF, chronic ICD Codes: I50.32 - Chronic diastolic (congestive) heart failure SNOMED: 99735906, 730047445 (5) Abnormal LFTs ICD Codes: R94.5 - Abnormal results of liver function studies SNOMED: 198512302 Status: progressing Status Narrative Discussed with Dr. Noe. Assessment/Plan us reviewed >> Cholelithiasis. Borderline gallbladder wall thickening, could indicate early acute cholecystitis changes. neg hepatitis panel HIDA negative LFTs still elevated, trend ST evaluation noted patient extubated TFs per RD to goal ST evaluation when more alert patient now on Eliquis that needs to be held for 48 hours prior to any procedure electrolyte correction prn transfusions ppi fu labs The patient was seen and examined at bedside and all new and available data was reviewed in the patients chart. I agree with the above findings, impression and plan. (Patient seen earlier today. Signature stamp does not reflect patient encounter time.). - Khalif Noe MD Subjective Subjective limited Objective Last 24 Hour Vital Signs Date Time Temp Pulse Resp B/P (MAP) Pulse Ox O2 Delivery O2 Flow Rate FiO2 03/16/18 11:46 140/73 03/16/18 09:15 84 139/75 03/16/18 09:14 84 03/16/18 08:00 98.2 84 18 139/75 (96) 98 03/16/18 07:50 77 03/16/18 07:00 95 Nasal Cannula 4.0 36 03/16/18 07:00 Nasal Cannula 4.0 36 03/16/18 06:11 138/92 03/16/18 04:00 81 03/16/18 04:00 97.7 82 18 138/92 (107) 98 03/16/18 04:00 Nasal Cannula 4.0 Nasal Cannula 4.0 Nasal Cannula 4.0 03/16/18 03:51 3.0 03/16/18 00:05 135/88 03/16/18 00:00 82 03/16/18 00:00 98.7 80 16 135/88 (104) 100 03/16/18 00:00 Nasal Cannula 4.0 Nasal Cannula 4.0 Nasal Cannula 4.0 03/15/18 21:00 98.6 80 16 135/85 (102) 96 03/15/18 20:25 78 136/91 03/15/18 20:00 Nasal Cannula 4.0 Nasal Cannula 4.0 Nasal Cannula 4.0 03/15/18 20:00 98.6 78 16 136/91 (106) 98 03/15/18 20:00 75 03/15/18 19:18 100 Venturi Mask 10.0 40 03/15/18 19:18 Venturi Mask 10.0 40 03/15/18 19:00 82 15 122/70 (87) 97 03/15/18 18:00 85 15 116/82 (93) 97 03/15/18 18:00 125/79 03/15/18 17:00 80 15 110/79 (89) 97 03/15/18 16:00 Nasal Cannula 4.0 Nasal Cannula 4.0 Nasal Cannula 4.0 03/15/18 16:00 88 03/15/18 16:00 98.6 78 16 119/75 (90) 98 03/15/18 15:00 82 15 120/77 (91) 97 03/15/18 14:00 80 15 125/79 (94) 97 03/15/18 13:00 82 16 115/60 (78) 97 Intake and Output 03/15/18 03/16/18 19:00 07:00 Intake Total 1085 ml 1830.000 ml Output Total 1060 ml 1050 ml Balance 25 ml 780.000 ml Free Water 800 ml IV Total 305 ml 250.000 ml Tube Feeding 780 ml 780 ml Output Urine Total 1060 ml 1050 ml Laboratory Tests Test 03/16/18 04:00 White Blood Count 8.6 K/UL (4.8-10.8) Red Blood Count 5.20 M/UL (4.70-6.10) Hemoglobin 13.4 G/DL (14.2-18.0) L Hematocrit 43.0 % (42.0-52.0) Mean Corpuscular Volume 83 FL (80-99) Mean Corpuscular Hemoglobin 25.8 PG (27.0-31.0) L Mean Corpuscular Hemoglobin Concent 31.2 G/DL (32.0-36.0) L Red Cell Distribution Width 17.5 % (11.6-14.8) H Platelet Count 263 K/UL (150-450) Mean Platelet Volume 7.9 FL (6.5-10.1) Neutrophils (%) (Auto) 74.0 % (45.0-75.0) Lymphocytes (%) (Auto) 17.6 % (20.0-45.0) L Monocytes (%) (Auto) 5.6 % (1.0-10.0) Eosinophils (%) (Auto) 1.9 % (0.0-3.0) Basophils (%) (Auto) 0.8 % (0.0-2.0) Sodium Level 155 MMOL/L (136-145) H Potassium Level 4.1 MMOL/L (3.5-5.1) Chloride Level 121 MMOL/L (98-107) H Carbon Dioxide Level 26 MMOL/L (21-32) Anion Gap 8 mmol/L (5-15) Blood Urea Nitrogen 37 mg/dL (7-18) H Creatinine 1.3 MG/DL (0.55-1.30) Estimat Glomerular Filtration Rate 57.3 mL/min (>60) Glucose Level 209 MG/DL (74-106) H Calcium Level 7.8 MG/DL (8.5-10.1) L Phosphorus Level 2.6 MG/DL (2.5-4.9) Magnesium Level 2.2 MG/DL (1.8-2.4) Total Bilirubin 1.3 MG/DL (0.2-1.0) H Direct Bilirubin 0.9 MG/DL (0.0-0.3) H Aspartate Amino Transf (AST/SGOT) 16 U/L (15-37) Alanine Aminotransferase (ALT/SGPT) 26 U/L (12-78) Alkaline Phosphatase 216 U/L (46-116) H Total Protein 5.7 G/DL (6.4-8.2) L Albumin 1.6 G/DL (3.4-5.0) L Globulin 4.1 g/dL Albumin/Globulin Ratio 0.4 (1.0-2.7) L Height (Feet): 6 Height (Inches): 0.00 Weight (Pounds): 270 General Appearance: WD/WN, no apparent distress, alert Cardiovascular: normal rate Respiratory/Chest: normal breath sounds, no respiratory distress Abdominal Exam: normal bowel sounds, non tender, soft Extremities: non-tender Efraín Hernandez NP Mar 16, 2018 12:30
--- NOTE | 2018-03-16 12:59 | General Surgery Progress Note ---
General Surgery-Progress Note Subjective Symptoms: improved Additional Comments no acute events. comfortable. Objective Last 24 Hour Vital Signs Date Time Temp Pulse Resp B/P (MAP) Pulse Ox O2 Delivery O2 Flow Rate FiO2 03/16/18 12:00 Nasal Cannula 4.0 Nasal Cannula 4.0 Nasal Cannula 4.0 03/16/18 12:00 98.6 89 18 140/73 (95) 98 03/16/18 11:46 140/73 03/16/18 10:00 Nasal Cannula 4.0 Nasal Cannula 4.0 Nasal Cannula 4.0 03/16/18 09:15 84 139/75 03/16/18 09:14 84 03/16/18 08:00 98.2 84 18 139/75 (96) 98 03/16/18 08:00 Nasal Cannula 4.0 Nasal Cannula 4.0 Nasal Cannula 4.0 03/16/18 07:50 77 03/16/18 07:00 95 Nasal Cannula 4.0 36 03/16/18 07:00 Nasal Cannula 4.0 36 03/16/18 06:11 138/92 03/16/18 04:00 81 03/16/18 04:00 97.7 82 18 138/92 (107) 98 03/16/18 04:00 Nasal Cannula 4.0 Nasal Cannula 4.0 Nasal Cannula 4.0 03/16/18 03:51 3.0 03/16/18 00:05 135/88 03/16/18 00:00 82 03/16/18 00:00 98.7 80 16 135/88 (104) 100 03/16/18 00:00 Nasal Cannula 4.0 Nasal Cannula 4.0 Nasal Cannula 4.0 03/15/18 21:00 98.6 80 16 135/85 (102) 96 03/15/18 20:25 78 136/91 03/15/18 20:00 Nasal Cannula 4.0 Nasal Cannula 4.0 Nasal Cannula 4.0 03/15/18 20:00 98.6 78 16 136/91 (106) 98 03/15/18 20:00 75 03/15/18 19:18 100 Venturi Mask 10.0 40 03/15/18 19:18 Venturi Mask 10.0 40 03/15/18 19:00 82 15 122/70 (87) 97 03/15/18 18:00 85 15 116/82 (93) 97 03/15/18 18:00 125/79 03/15/18 17:00 80 15 110/79 (89) 97 03/15/18 16:00 Nasal Cannula 4.0 Nasal Cannula 4.0 Nasal Cannula 4.0 03/15/18 16:00 88 03/15/18 16:00 98.6 78 16 119/75 (90) 98 03/15/18 15:00 82 15 120/77 (91) 97 03/15/18 14:00 80 15 125/79 (94) 97 03/15/18 13:00 82 16 115/60 (78) 97 I&O Intake and Output 03/15/18 03/16/18 19:00 07:00 Intake Total 1085 ml 1830.000 ml Output Total 1060 ml 1050 ml Balance 25 ml 780.000 ml Free Water 800 ml IV Total 305 ml 250.000 ml Tube Feeding 780 ml 780 ml Output Urine Total 1060 ml 1050 ml Dressing: other Wound: other Drains: other Cardiovascular: RSR Respiratory: clear Abdomen: soft, flat, non-tender, present bowel sounds Extremities: other Laboratory Tests Test 03/16/18 04:00 White Blood Count 8.6 K/UL (4.8-10.8) Red Blood Count 5.20 M/UL (4.70-6.10) Hemoglobin 13.4 G/DL (14.2-18.0) L Hematocrit 43.0 % (42.0-52.0) Mean Corpuscular Volume 83 FL (80-99) Mean Corpuscular Hemoglobin 25.8 PG (27.0-31.0) L Mean Corpuscular Hemoglobin Concent 31.2 G/DL (32.0-36.0) L Red Cell Distribution Width 17.5 % (11.6-14.8) H Platelet Count 263 K/UL (150-450) Mean Platelet Volume 7.9 FL (6.5-10.1) Neutrophils (%) (Auto) 74.0 % (45.0-75.0) Lymphocytes (%) (Auto) 17.6 % (20.0-45.0) L Monocytes (%) (Auto) 5.6 % (1.0-10.0) Eosinophils (%) (Auto) 1.9 % (0.0-3.0) Basophils (%) (Auto) 0.8 % (0.0-2.0) Sodium Level 155 MMOL/L (136-145) H Potassium Level 4.1 MMOL/L (3.5-5.1) Chloride Level 121 MMOL/L (98-107) H Carbon Dioxide Level 26 MMOL/L (21-32) Anion Gap 8 mmol/L (5-15) Blood Urea Nitrogen 37 mg/dL (7-18) H Creatinine 1.3 MG/DL (0.55-1.30) Estimat Glomerular Filtration Rate 57.3 mL/min (>60) Glucose Level 209 MG/DL (74-106) H Calcium Level 7.8 MG/DL (8.5-10.1) L Phosphorus Level 2.6 MG/DL (2.5-4.9) Magnesium Level 2.2 MG/DL (1.8-2.4) Total Bilirubin 1.3 MG/DL (0.2-1.0) H Direct Bilirubin 0.9 MG/DL (0.0-0.3) H Aspartate Amino Transf (AST/SGOT) 16 U/L (15-37) Alanine Aminotransferase (ALT/SGPT) 26 U/L (12-78) Alkaline Phosphatase 216 U/L (46-116) H Total Protein 5.7 G/DL (6.4-8.2) L Albumin 1.6 G/DL (3.4-5.0) L Globulin 4.1 g/dL Albumin/Globulin Ratio 0.4 (1.0-2.7) L Plan Problems: (1) Abnormal LFTs Assessment & Plan: will obtain hepatitis panel US abdomen - Cholelithiasis; Borderline gallbladder wall thickening, could indicate early acute cholecystitis changes. Consider hepatobiliary nuclear scan if there is high clinical suspicion Negative for dilated ducts will monitor clinically for now HIDA noted hep panel negative hiv neg LFTs noted / improving no surgical intervention necessary at this time. -unlikely cholecystitis. likely contracted GB trend labs may consider repeat US abd (2) Cellulitis Assessment & Plan: chronic bilateral lower extremity wounds / ulcers acute on chronic cellulitis no abscess noted serous drainage multiple wounds that seem traumatic like cuts some small ulcers see wound photos for details -IV Abx as per ID -Keep legs elevated -apply skin protectant, hydrogel, non adherent dressings, and wrap ICU care and management (3) Decubital ulcer Assessment & Plan: patient with two small DTI to sacrum now. precautions being taken. patient being turned q2h. foam dressings and skin protectant has been in place. air mattress. unfortunately given condition and current state despite maximal effort there are unavoidable pressure wounds noted. will continue to maximal care R buttocks DTPI evolving .Wound moist -viable with edges adherent and flat (L) 2cm x (W)2.5cm. Periwound is clean and intact. Reabsorbed blood blister L buttocks. Area is purple with red tinged borders (L)5cm x (W)1cm. Triad paste applied and covered with Sacral foam drsg.Pt positioned on side both heels off- loaded with pillow.Moisture intertrigo notd to abd folds and groin areas .Triad paste applied to affected area. Both heels dry and blanchable and are off- loaded with pillow. Pt is on an air fluidized mattress. All wound preventive protocols and Tx orders maintained. thank you Garth Cornelius Mar 16, 2018 12:59
--- NOTE | 2018-03-16 13:07 | Infectious Diseases Prog Note ---
Assessment/Plan Assessment/Plan Assessment: s/p Code blue 03/08 Aspiration PNA -sp cx ESBL E.coli (S Zosyn, Erta) -03/14 CXR: Persistent right basilar infiltrate and/or pleural effusion. Increasing left infrahilar infiltrate -03/08 cXR: Increasing right upper lung parenchymal opacity may reflect developing infiltrate in the right upper lobe. There is improved aeration of the right lung base -CXR: Improved aeration of the right lung, presumably representing improving atelectasis. Right lower lobe infiltrate. There may also be pleural fluid on the right. Bilateral interstitial disease. Probably on the basis of pulmonary edema. However, considerable central bronchial wall thickening suggests a significant chronic component Fever, recurrent- improving- r/o bacteremia/line infection -03/15 Bcx p Leukocytosis, SP B/l LE purulent cellulitis- legs with scratches (self inflicted) ; SP -wound cx MRSA -L foot tibia/fibula xray: No acute process -R foot tibia/fibula xray: No acute bony trauma Acute encephalopathy - improving Acute respiratory failure- due to Afib w/ RVR- n ow intubated 03/08 after Code blue Afib w/ RVR Elevated LFTs, SP - HIDA inconclusive but low prob for acute cholecysitis -HIDA: Questionable very small tracer collection in the region of the gallbladder fossa on delayed images, could represent partial filling of a nondistended gallbladder but this is not conclusive. Acute cholecystitis doubtful but not conclusively excluded based on these images and prior ultrasound, which showed a nondistended gallbladder. Patent common bile duct -Abd US: Cholelithiasis. Borderline gallbladder wall thickening, could indicate early acute cholecystitis changes. Consider hepatobiliary nuclear scan if there is high clinical suspicion. Negative for dilated ducts Incidental finding bilateral pleural effusions -acute hep panel, HIV sc neg ZHAO, improving DM2 HTN CHF Schizoaffective disorder Plan: -D/c Ertapenem d # 8/7 for ESBL E.coli PNA -03/15 SP IV Vancomycin #14 -03/09 SP ZOsyn #4 -03/06 SP Ceftriaxone #2 -03/03 SP Ancef #2 -03/01 SP Cefepime #2 -f/u Bcx x2 -Remove femoral line -f/u cx -Monitor CBC/CMP, temperatures -wound care -Sx, GI, Neuro f/u Discussed with RN Subjective Allergies: Coded Allergies: No Known Allergies (Unverified , 02/16/18) Subjective afebrile in >36hrs extubated yesterday, now on 4L NC tranfered to [facility] no leukocytosis Objective Vital Signs Last 24 Hour Vital Signs Date Time Temp Pulse Resp B/P (MAP) Pulse Ox O2 Delivery O2 Flow Rate FiO2 03/16/18 12:00 Nasal Cannula 4.0 Nasal Cannula 4.0 Nasal Cannula 4.0 03/16/18 12:00 98.6 89 18 140/73 (95) 98 03/16/18 11:46 140/73 03/16/18 10:00 Nasal Cannula 4.0 Nasal Cannula 4.0 Nasal Cannula 4.0 03/16/18 09:15 84 139/75 03/16/18 09:14 84 03/16/18 08:00 98.2 84 18 139/75 (96) 98 03/16/18 08:00 Nasal Cannula 4.0 Nasal Cannula 4.0 Nasal Cannula 4.0 03/16/18 07:50 77 03/16/18 07:00 95 Nasal Cannula 4.0 36 03/16/18 07:00 Nasal Cannula 4.0 36 03/16/18 06:11 138/92 03/16/18 04:00 81 03/16/18 04:00 97.7 82 18 138/92 (107) 98 03/16/18 04:00 Nasal Cannula 4.0 Nasal Cannula 4.0 Nasal Cannula 4.0 03/16/18 03:51 3.0 03/16/18 00:05 135/88 03/16/18 00:00 82 03/16/18 00:00 98.7 80 16 135/88 (104) 100 03/16/18 00:00 Nasal Cannula 4.0 Nasal Cannula 4.0 Nasal Cannula 4.0 03/15/18 21:00 98.6 80 16 135/85 (102) 96 03/15/18 20:25 78 136/91 03/15/18 20:00 Nasal Cannula 4.0 Nasal Cannula 4.0 Nasal Cannula 4.0 03/15/18 20:00 98.6 78 16 136/91 (106) 98 03/15/18 20:00 75 03/15/18 19:18 100 Venturi Mask 10.0 40 03/15/18 19:18 Venturi Mask 10.0 40 03/15/18 19:00 82 15 122/70 (87) 97 03/15/18 18:00 85 15 116/82 (93) 97 03/15/18 18:00 125/79 03/15/18 17:00 80 15 110/79 (89) 97 18 16:00 Nasal Cannula 4.0 Nasal Cannula 4.0 Nasal Cannula 4.0 03/15/18 16:00 88 03/15/18 16:00 98.6 78 16 119/75 (90) 98 03/15/18 15:00 82 15 120/77 (91) 97 03/15/18 14:00 80 15 125/79 (94) 97 03/15/18 13:00 82 16 115/60 (78) 97 Height (Feet): 6 Height (Inches): 0.00 Weight (Pounds): 270 Objective General Appearance: WD/WN Lines, tubes and drains: peripheral HEENT: normocephalic, atraumatic Neck: non-tender, normal alignment Respiratory/Chest: chest wall non-tender, lungs clear Breasts: no masses Cardiovascular/Chest: normal peripheral pulses Abdomen: normal bowel sounds, non tender Extremities: B/l leg erythema, swelling, with scratches and some minimal drainage Laboratory Tests Test 03/16/18 04:00 White Blood Count 8.6 K/UL (4.8-10.8) Red Blood Count 5.20 M/UL (4.70-6.10) Hemoglobin 13.4 G/DL (14.2-18.0) L Hematocrit 43.0 % (42.0-52.0) Mean Corpuscular Volume 83 FL (80-99) Mean Corpuscular Hemoglobin 25.8 PG (27.0-31.0) L Mean Corpuscular Hemoglobin Concent 31.2 G/DL (32.0-36.0) L Red Cell Distribution Width 17.5 % (11.6-14.8) H Platelet Count 263 K/UL (150-450) Mean Platelet Volume 7.9 FL (6.5-10.1) Neutrophils (%) (Auto) 74.0 % (45.0-75.0) Lymphocytes (%) (Auto) 17.6 % (20.0-45.0) L Monocytes (%) (Auto) 5.6 % (1.0-10.0) Eosinophils (%) (Auto) 1.9 % (0.0-3.0) Basophils (%) (Auto) 0.8 % (0.0-2.0) Sodium Level 155 MMOL/L (136-145) H Potassium Level 4.1 MMOL/L (3.5-5.1) Chloride Level 121 MMOL/L (98-107) H Carbon Dioxide Level 26 MMOL/L (21-32) Anion Gap 8 mmol/L (5-15) Blood Urea Nitrogen 37 mg/dL (7-18) H Creatinine 1.3 MG/DL (0.55-1.30) Estimat Glomerular Filtration Rate 57.3 mL/min (>60) Glucose Level 209 MG/DL (74-106) H Calcium Level 7.8 MG/DL (8.5-10.1) L Phosphorus Level 2.6 MG/DL (2.5-4.9) Magnesium Level 2.2 MG/DL (1.8-2.4) Total Bilirubin 1.3 MG/DL (0.2-1.0) H Direct Bilirubin 0.9 MG/DL (0.0-0.3) H Aspartate Amino Transf (AST/SGOT) 16 U/L (15-37) Alanine Aminotransferase (ALT/SGPT) 26 U/L (12-78) Alkaline Phosphatase 216 U/L (46-116) H Total Protein 5.7 G/DL (6.4-8.2) L Albumin 1.6 G/DL (3.4-5.0) L Globulin 4.1 g/dL Albumin/Globulin Ratio 0.4 (1.0-2.7) L Current Medications Medications (Trade) Dose Ordered Sig/Roseline Route PRN Reason Start Time Stop Time Status Last Admin Dose Admin Acetaminophen (Tylenol) 650 mg Q4H PRN ORAL fever (temp>100.5F) 03/15/18 21:00 03/30/18 20:59 Carvedilol (Coreg) 50 mg EVERY 12 HOURS ORAL 03/16/18 09:00 04/15/18 08:59 03/16/18 09:15 Chlorhexidine Gluconate (Ashley-Hex 2%) 1 applic DAILY@1999 TOPIC 03/16/18 20:00 04/01/18 19:59 Dextrose (Dextrose 50%) 25 ml Q30M PRN IV Hypoglycemia 03/15/18 21:00 03/30/18 13:59 Dextrose (Dextrose 50%) 50 ml Q30M PRN IV Hypoglycemia 03/15/18 21:00 03/30/18 13:59 Digoxin (Lanoxin) 0.125 mg DAILY IVP 03/16/18 09:00 04/02/18 14:21 03/16/18 09:14 Ertapenem 1 gm/ Sodium Chloride 55 ml @ 110 mls/hr Q24H IVPB 03/16/18 12:00 03/16/18 23:59 03/16/18 11:43 Haloperidol Lactate (Haldol) 5 mg Q4H PRN IM Agitation 03/15/18 21:00 03/31/18 20:59 Hydralazine HCl (Apresoline) 25 mg Q6HR ORAL 03/16/18 00:00 04/15/18 00:00 03/16/18 11:46 Insulin Aspart (NovoLOG) EVERY 6 HOURS SUBQ 03/16/18 00:00 04/10/18 11:59 03/16/18 11:49 Lorazepam (Ativan 2mg/ml 1ml) 2 mg Q4H PRN IV For more severe Anxiety 03/15/18 21:00 03/16/18 20:59 Metoprolol Tartrate (Lopressor) 10 mg Q1H PRN IVP Heart rate >120 per minute 03/15/18 21:45 03/31/18 19:44 Morphine Sulfate (Morphine Sulfate) 4 mg Q4H PRN IVP For Pain 03/15/18 21:00 03/16/18 20:59 Nitroglycerin (Ntg) 0.4 mg Q5M PRN SL Prn Chest Pain 03/15/18 21:00 03/30/18 18:20 Ondansetron HCl (Zofran) 4 mg Q6H PRN IVP Nausea & Vomiting 03/15/18 21:00 04/14/18 20:59 Pantoprazole (Protonix) 40 mg DAILY IV 03/16/18 09:00 04/08/18 08:59 03/16/18 09:13 Polyethylene Glycol (Miralax) 17 gm DAILYPRN PRN ORAL Constipation 03/15/18 21:00 04/14/18 20:59 Vancomycin HCl (Vanco rx to dose) 1 ea DAILY PRN MISC rx protocol 03/15/18 21:00 03/16/18 20:59 Susan Dennis M.D. Mar 16, 2018 13:07
[2018-03-16] MEDS ORDERED: Dyna-Hex 2% Top Sol 2oz TOPIC SCH (20:00)
--- NOTE | 2018-03-16 20:00 | Neurology Progress Note ---
Interim History Interim History Interim History Mr. Cornejo is awake and responsive. He can follow a few simple commands. He however is still unable to communicate well. He indicates that he can see but does not blink to threat or count fingers. He can move his hands on command. He cannot move his legs. He is able to protrude his tongue on command. He has been extubated and is out of the ICU. Review of Systems Neuro Review of Systems Unable to obtain. Objective Physical Exam Last Vital Signs Date Time Temp Pulse Resp B/P (MAP) Pulse Ox O2 Delivery O2 Flow Rate FiO2 03/16/18 18:09 145/85 03/16/18 16:00 Nasal Cannula 4.0 Nasal Cannula 4.0 Nasal Cannula 4.0 03/16/18 16:00 88 03/16/18 16:00 98.4 18 96 03/16/18 07:00 36 Laboratory Tests Test 03/16/18 04:00 White Blood Count 8.6 K/UL (4.8-10.8) Red Blood Count 5.20 M/UL (4.70-6.10) Hemoglobin 13.4 G/DL (14.2-18.0) L Hematocrit 43.0 % (42.0-52.0) Mean Corpuscular Volume 83 FL (80-99) Mean Corpuscular Hemoglobin 25.8 PG (27.0-31.0) L Mean Corpuscular Hemoglobin Concent 31.2 G/DL (32.0-36.0) L Red Cell Distribution Width 17.5 % (11.6-14.8) H Platelet Count 263 K/UL (150-450) Mean Platelet Volume 7.9 FL (6.5-10.1) Neutrophils (%) (Auto) 74.0 % (45.0-75.0) Lymphocytes (%) (Auto) 17.6 % (20.0-45.0) L Monocytes (%) (Auto) 5.6 % (1.0-10.0) Eosinophils (%) (Auto) 1.9 % (0.0-3.0) Basophils (%) (Auto) 0.8 % (0.0-2.0) Sodium Level 155 MMOL/L (136-145) H Potassium Level 4.1 MMOL/L (3.5-5.1) Chloride Level 121 MMOL/L (98-107) H Carbon Dioxide Level 26 MMOL/L (21-32) Anion Gap 8 mmol/L (5-15) Blood Urea Nitrogen 37 mg/dL (7-18) H Creatinine 1.3 MG/DL (0.55-1.30) Estimat Glomerular Filtration Rate 57.3 mL/min (>60) Glucose Level 209 MG/DL (74-106) H Calcium Level 7.8 MG/DL (8.5-10.1) L Phosphorus Level 2.6 MG/DL (2.5-4.9) Magnesium Level 2.2 MG/DL (1.8-2.4) Total Bilirubin 1.3 MG/DL (0.2-1.0) H Direct Bilirubin 0.9 MG/DL (0.0-0.3) H Aspartate Amino Transf (AST/SGOT) 16 U/L (15-37) Alanine Aminotransferase (ALT/SGPT) 26 U/L (12-78) Alkaline Phosphatase 216 U/L (46-116) H Total Protein 5.7 G/DL (6.4-8.2) L Albumin 1.6 G/DL (3.4-5.0) L Globulin 4.1 g/dL Albumin/Globulin Ratio 0.4 (1.0-2.7) L Neurologic Exam Objective PHYSICAL EXAMINATION: GENERAL: He is a well developed, well nourished, gentleman, lying in bed. HEAD: Normocephalic and atraumatic. EENT: Examination benign. NECK: No neck rigidity was observed. NEUROLOGIC EXAMINATION: MENTAL STATUS EXAMINATION: He was awake and more responsive. He followed a few simple commands more consistently. Further mental status testing was impossible. SPEECH: Could not be tested. LANGUAGE: Could not be tested. CRANIAL NERVE EXAMINATION: II: He did not blink to threat. He said he could see but could not count fingers. III, IV & : The external ocular movements were present on oculocephalic maneuvers. The pupils were 3 mm in diameter and did not react to light. V & VII: The corneal reflexes were equal. VIII: He did respond to sounds and had no nystagmus. IX & X: The gag reflex was absent. XI: The sternocleidomastoids and trapezii did not function. XII: He protruded his tongue on command. MOTOR SYSTEM: The tone was normal in all 4 extremities. Examination of muscle mass revealed no focal wasting. 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 Examination of power was impossible to perform he was able to give minimal squeeze with both hands but was unable to move the lower extremities. SENSORY EXAMINATION: He did not respond to deep painful stimuli. REFLEXES: 0 at the biceps, triceps, brachioradialis, knees, and ankles. The right plantar response could not be tested as he had no toes, and the left plantar response was mute. COORDINATION, STANCE & GAIT: Could not be tested. Impression/Recommendations Diagnostic Impression 1. Mr. Dustin Cornejo is a 57-year-old, gentleman, of unknown handedness, who was hospitalized for right lower extremity cellulitis and then in the hospital deteriorated to a point where became quite altered with regards to his mental state on 03/05/2018 and was transferred to the ICU. He was noted to have atrial fibrillation with a rapid ventricular rate and shortness of breath related to hypoxic respiratory failure and then became agitated as a result of which he was given multiple doses of Ativan, Haldol, and morphine. 2. He is awake and responsive. He can follow a few simple commands. He however is still unable to communicate well. He indicates that he can see but does not blink to threat or count fingers. He can move his hands on command. He cannot move his legs. He is able to protrude his tongue on command. He has been extubated and is out of the ICU. 3. On neurological examination, at this time, he is awake. He he follows commands more consistently. He does not blink to threat but says he can see. 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 He does not respond to deep pain. He does not demonstrate any lateralizing findings. He has globally absent deep tendon reflexes, and the plantar response on the left side is mute. 4. His latest laboratory data on my initial evaluation revealed his WBC count was elevated to 13,400. He had his last ESR on 03/02/2018 and it was 7. His blood gases revealed that he had a pH of 7.48, pCO2 of 35, and pO2 of 51. His latest chemistry panel revealed that his sodium was elevated to 155. His chloride was elevated to 118. His BUN was elevated to 41. His creatinine was elevated to 1.3. His glucose was elevated to 208. His total bilirubin was elevated at 2.8. His AST, ALT, and alkaline phosphatase were all elevated. His albumin was low at 2.2. His urine toxicology screen on admission revealed that tetrahydrocannabinols were present. His serologies were negative for HIV. 5. Further laboratory tests revealed a normal B12, Folate, TSH but the Hb A1C was elevated at 9.2%. 6. The CT of the brain done on 03/07/18 revealed atrophy and deep white matter disease but no acute pathology. 7. The EEG revealed a moderate toxic/metabolic encephalopathy. 8. The patient's history, neurological examination, laboratory data, EEG and imaging are most compatible with a severe toxic metabolic encephalopathy, which is multifactorial. The recent cardiac arrest has led to an anoxic/ischemic encephalopathy. Acute intracranial pathology has been excluded. 9. His encephalopathy continues to improve. It is unclear if he has become cortically blind. Recommendations 1. Continue present management. 2. Keep the patient off all mind-altering drugs. 3. Correct toxic/metabolic imbalances the best possible. 4. MRI of brain to evaluate for cortical blindness on Monday. Dawit Marshall M.D., M.S.P.H. Dawit Marshall MD Mar 16, 2018 20:00
--- NOTE | 2018-03-16 23:39 | Nephrology Progress Note ---
Assessment/Plan Assessment 1.hypernatremia 2.ZHAO 3.ckd 4.respiratory failure 5.CHF Plan increase free water via NG obtain u/a hold lasix monitoring renal function avoid NSAID replace electrolyte as need it Subjective Subjective continue to be in ICU extubated NAD Objective Objective Last 24 Hour Vital Signs Date Time Temp Pulse Resp B/P (MAP) Pulse Ox O2 Delivery O2 Flow Rate FiO2 03/16/18 20:45 98.6 03/16/18 20:22 Nasal Cannula 4.0 36 03/16/18 20:22 96 Nasal Cannula 4.0 36 03/16/18 20:13 97 121/64 03/16/18 20:00 Nasal Cannula 4.0 Nasal Cannula 4.0 Nasal Cannula 4.0 03/16/18 20:00 99.0 97 24 121/64 (83) 95 03/16/18 20:00 76 03/16/18 18:09 145/85 03/16/18 16:00 Nasal Cannula 4.0 Nasal Cannula 4.0 Nasal Cannula 4.0 03/16/18 16:00 88 03/16/18 16:00 98.4 84 18 145/85 (105) 96 03/16/18 12:00 Nasal Cannula 4.0 Nasal Cannula 4.0 Nasal Cannula 4.0 03/16/18 12:00 98.6 89 18 140/73 (95) 98 03/16/18 11:52 88 03/16/18 11:46 140/73 03/16/18 10:00 Nasal Cannula 4.0 Nasal Cannula 4.0 Nasal Cannula 4.0 03/16/18 09:15 84 139/75 03/16/18 09:14 84 03/16/18 08:00 98.2 84 18 139/75 (96) 98 03/16/18 08:00 Nasal Cannula 4.0 Nasal Cannula 4.0 Nasal Cannula 4.0 03/16/18 07:50 77 03/16/18 07:00 95 Nasal Cannula 4.0 36 03/16/18 07:00 Nasal Cannula 4.0 36 03/16/18 06:11 138/92 03/16/18 04:00 81 03/16/18 04:00 97.7 82 18 138/92 (107) 98 03/16/18 04:00 Nasal Cannula 4.0 Nasal Cannula 4.0 Nasal Cannula 4.0 03/16/18 03:51 3.0 03/16/18 00:05 135/88 03/16/18 00:00 82 03/16/18 00:00 98.7 80 16 135/88 (104) 100 03/16/18 00:00 Nasal Cannula 4.0 Nasal Cannula 4.0 Nasal Cannula 4.0 Intake and Output 03/15/18 03/16/18 19:00 07:00 Intake Total 1085 ml 1895.000 ml Output Total 1060 ml 1050 ml Balance 25 ml 845.000 ml Free Water 800 ml IV Total 305 ml 250.000 ml Tube Feeding 780 ml 845 ml Output Urine Total 1060 ml 1050 ml Laboratory Tests 03/16/18 04:00: White Blood Count 8.6, Red Blood Count 5.20, Hemoglobin 13.4L, Hematocrit 43.0, Mean Corpuscular Volume 83, Mean Corpuscular Hemoglobin 25.8L, Mean Corpuscular Hemoglobin Concent 31.2L, Red Cell Distribution Width 17.5H, Platelet Count 263 , Mean Platelet Volume 7.9, Neutrophils (%) (Auto) 74.0, Lymphocytes (%) (Auto) 17.6L, Monocytes (%) (Auto) 5.6, Eosinophils (%) (Auto) 1.9, Basophils (%) (Auto ) 0.8, Sodium Level 155H, Potassium Level 4.1, Chloride Level 121H, Carbon Dioxide Level 26, Anion Gap 8, Blood Urea Nitrogen 37H, Creatinine 1.3, Estimat Glomerular Filtration Rate 57.3, Glucose Level 209H, Calcium Level 7.8L, Phosphorus Level 2.6, Magnesium Level 2.2, Total Bilirubin 1.3H, Direct Bilirubin 0.9H, Aspartate Amino Transf (AST/SGOT) 16, Alanine Aminotransferase ( ALT/SGPT) 26, Alkaline Phosphatase 216H, Total Protein 5.7L, Albumin 1.6L, Globulin 4.1, Albumin/Globulin Ratio 0.4L Height (Feet): 6 Height (Inches): 0.00 Weight (Pounds): 270 Objective HEENT: Atraumatic and normocephalic. Anicteric. Pupils are equal, round, and reactive to light and accommodation. Extraocular muscles intact. Altered. NECK: JVP elevated about 5cm. No carotid bruits. Carotid upstrokes 2+ bilaterally. CARDIOVASCULAR: Normal S1, S2. Irregularly irregular rhythm. 2/6 Holosystolic murmur, gallop, or rub. LUNGS: Diminished BS both lungs. ABDOMEN: Soft, nontender, and nondistended. No hepatosplenomegaly. Positive bowel sounds. EXTREMITIES: There is 1+ bilateral lower extremity edema with ulcerations. Maryana Collier MD Mar 16, 2018 23:39
--- NOTE | 2018-03-16 23:50 | Cardiology Progress Note ---
Assessment/Plan Assessment/Plan 1. Atrial fibrillation with controlled ventricular response, continue carvedilol and digoxin. 2. 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 3. Severe mitral regurgitation, afterload reduction with hydralazine. 4. Acute respiratory failure, resolved on NC oxygen. Subjective Subjective Atrial fibrillation with controlled ventricular response at rate of 97. On NC O2 4 lit/min Objective Last 24 Hour Vital Signs Date Time Temp Pulse Resp B/P (MAP) Pulse Ox O2 Delivery O2 Flow Rate FiO2 03/16/18 23:32 133/78 03/16/18 20:45 98.6 03/16/18 20:22 Nasal Cannula 4.0 36 03/16/18 20:22 96 Nasal Cannula 4.0 36 03/16/18 20:13 97 121/64 03/16/18 20:00 Nasal Cannula 4.0 Nasal Cannula 4.0 Nasal Cannula 4.0 03/16/18 20:00 99.0 97 24 121/64 (83) 95 03/16/18 20:00 76 03/16/18 18:09 145/85 03/16/18 16:00 Nasal Cannula 4.0 Nasal Cannula 4.0 Nasal Cannula 4.0 03/16/18 16:00 88 03/16/18 16:00 98.4 84 18 145/85 (105) 96 03/16/18 12:00 Nasal Cannula 4.0 Nasal Cannula 4.0 Nasal Cannula 4.0 03/16/18 12:00 98.6 89 18 140/73 (95) 98 03/16/18 11:52 88 03/16/18 11:46 140/73 03/16/18 10:00 Nasal Cannula 4.0 Nasal Cannula 4.0 Nasal Cannula 4.0 03/16/18 09:15 84 139/75 03/16/18 09:14 84 03/16/18 08:00 98.2 84 18 139/75 (96) 98 03/16/18 08:00 Nasal Cannula 4.0 Nasal Cannula 4.0 Nasal Cannula 4.0 03/16/18 07:50 77 03/16/18 07:00 95 Nasal Cannula 4.0 36 03/16/18 07:00 Nasal Cannula 4.0 36 03/16/18 06:11 138/92 03/16/18 04:00 81 03/16/18 04:00 97.7 82 18 138/92 (107) 98 03/16/18 04:00 Nasal Cannula 4.0 Nasal Cannula 4.0 Nasal Cannula 4.0 03/16/18 03:51 3.0 03/16/18 00:05 135/88 03/16/18 00:00 82 03/16/18 00:00 98.7 80 16 135/88 (104) 100 03/16/18 00:00 Nasal Cannula 4.0 Nasal Cannula 4.0 Nasal Cannula 4.0 Intake and Output 03/15/18 03/16/18 19:00 07:00 Intake Total 1085 ml 1895.000 ml Output Total 1060 ml 1050 ml Balance 25 ml 845.000 ml Free Water 800 ml IV Total 305 ml 250.000 ml Tube Feeding 780 ml 845 ml Output Urine Total 1060 ml 1050 ml 2D Echo: LVEF 25%, Bi-atrial enlargement, Severe MR, RVSP 24 mmHg, RAP 15 mmHg Laboratory Tests Test 03/16/18 04:00 White Blood Count 8.6 K/UL (4.8-10.8) Red Blood Count 5.20 M/UL (4.70-6.10) Hemoglobin 13.4 G/DL (14.2-18.0) L Hematocrit 43.0 % (42.0-52.0) Mean Corpuscular Volume 83 FL (80-99) Mean Corpuscular Hemoglobin 25.8 PG (27.0-31.0) L Mean Corpuscular Hemoglobin Concent 31.2 G/DL (32.0-36.0) L Red Cell Distribution Width 17.5 % (11.6-14.8) H Platelet Count 263 K/UL (150-450) Mean Platelet Volume 7.9 FL (6.5-10.1) Neutrophils (%) (Auto) 74.0 % (45.0-75.0) Lymphocytes (%) (Auto) 17.6 % (20.0-45.0) L Monocytes (%) (Auto) 5.6 % (1.0-10.0) Eosinophils (%) (Auto) 1.9 % (0.0-3.0) Basophils (%) (Auto) 0.8 % (0.0-2.0) Sodium Level 155 MMOL/L (136-145) H Potassium Level 4.1 MMOL/L (3.5-5.1) Chloride Level 121 MMOL/L (98-107) H Carbon Dioxide Level 26 MMOL/L (21-32) Anion Gap 8 mmol/L (5-15) Blood Urea Nitrogen 37 mg/dL (7-18) H Creatinine 1.3 MG/DL (0.55-1.30) Estimat Glomerular Filtration Rate 57.3 mL/min (>60) Glucose Level 209 MG/DL (74-106) H Calcium Level 7.8 MG/DL (8.5-10.1) L Phosphorus Level 2.6 MG/DL (2.5-4.9) Magnesium Level 2.2 MG/DL (1.8-2.4) Total Bilirubin 1.3 MG/DL (0.2-1.0) H Direct Bilirubin 0.9 MG/DL (0.0-0.3) H Aspartate Amino Transf (AST/SGOT) 16 U/L (15-37) Alanine Aminotransferase (ALT/SGPT) 26 U/L (12-78) Alkaline Phosphatase 216 U/L (46-116) H Total Protein 5.7 G/DL (6.4-8.2) L Albumin 1.6 G/DL (3.4-5.0) L Globulin 4.1 g/dL Albumin/Globulin Ratio 0.4 (1.0-2.7) L Objective HEENT: Atraumatic and normocephalic. Anicteric. Pupils are equal, round, and reactive to light and accommodation. Extraocular muscles intact. NECK: JVP elevated about 5cm. No carotid bruits. Carotid upstrokes 2+ bilaterally. CARDIOVASCULAR: Normal S1, S2. Irregularly irregular rhythm. 2/6 Holosystolic murmur, gallop, or rub. LUNGS: Diminished BS both lungs. ABDOMEN: Soft, nontender, and nondistended. No hepatosplenomegaly. Positive bowel sounds. EXTREMITIES: There is 1+ bilateral lower extremity edema with ulcerations. Sudarshan Stuart MD Mar 16, 2018 23:50
[2018-03-17 04:00] VITALS: BP 141/84
[2018-03-17 04:07] LABS: BASOPHILS % (AUTO) 0.9 % (0.0-2.0); EOSINOPHILS % (AUTO) 1.8 % (0.0-3.0); HEMATOCRIT 47.1 % (42.0-52.0); HEMOGLOBIN 14.8 G/DL (14.2-18.0); LYMPHOCYTES % (AUTO) 19.9 % (20.0-45.0); MEAN CORPUSCULAR VOLUME 82 FL (80-99); MONOCYTES % (AUTO) 4.8 % (1.0-10.0); NEUTROPHILS % (AUTO) 72.7 % (45.0-75.0); PLATELET COUNT 251 K/UL (150-450); RED BLOOD COUNT 5.75 M/UL (4.70-6.10); RED CELL DISTRIBUTION WIDTH 17.6 % (11.6-14.8); WHITE BLOOD COUNT 8.6 K/UL (4.8-10.8)
[2018-03-17 04:44] LABS: ALANINE AMINOTRANSFERASE 25 U/L (12-78); ALBUMIN 1.7 G/DL (3.4-5.0); ALBUMIN/GLOBULIN RATIO 0.3 (1.0-2.7); ALKALINE PHOSPHATASE 234 U/L (46-116); ANION GAP 7 mmol/L (5-15); ASPARTATE AMINO TRANSFERASE 27 U/L (15-37); BILIRUBIN,TOTAL 1.3 MG/DL (0.2-1.0); BLOOD UREA NITROGEN 40 mg/dL (7-18); CALCIUM 8.1 MG/DL (8.5-10.1); CARBON DIOXIDE 26 MMOL/L (21-32); CHLORIDE 123 MMOL/L (98-107); CREATININE 1.4 MG/DL (0.55-1.30); PHOSPHORUS 2.7 MG/DL (2.5-4.9); POTASSIUM 4.2 MMOL/L (3.5-5.1); SODIUM 156 MMOL/L (136-145)
[2018-03-17 04:49] LABS: BILIRUBIN,DIRECT 0.7 MG/DL (0.0-0.3)
[2018-03-17] MEDS: HydrALAZINE 25mg tab ORAL SCH ×3 (06:35→17:40)
[2018-03-17] MEDS: NovoLOG Insulin Flexpen SUBQ SCH ×3 (06:39→17:43)
--- NOTE | 2018-03-17 07:18 | Infectious Diseases Prog Note ---
Assessment/Plan Assessment/Plan s/p Code blue 03/08 Aspiration PNA -sp cx ESBL E.coli (S Zosyn, Erta) -03/14 CXR: Persistent right basilar infiltrate and/or pleural effusion. Increasing left infrahilar infiltrate -03/08 cXR: Increasing right upper lung parenchymal opacity may reflect developing infiltrate in the right upper lobe. There is improved aeration of the right lung base -CXR: Improved aeration of the right lung, presumably representing improving atelectasis. Right lower lobe infiltrate. There may also be pleural fluid on the right. Bilateral interstitial disease. Probably on the basis of pulmonary edema. However, considerable central bronchial wall thickening suggests a significant chronic component Fever, recurrent- improving- r/o bacteremia/line infection -03/15 Bcx p Leukocytosis, SP B/l LE purulent cellulitis- legs with scratches (self inflicted) ; SP -wound cx MRSA -L foot tibia/fibula xray: No acute process -R foot tibia/fibula xray: No acute bony trauma Acute encephalopathy - improving Acute respiratory failure- due to Afib w/ RVR- n ow intubated 03/08 after Code blue Afib w/ RVR Elevated LFTs, SP - HIDA inconclusive but low prob for acute cholecysitis -HIDA: Questionable very small tracer collection in the region of the gallbladder fossa on delayed images, could represent partial filling of a nondistended gallbladder but this is not conclusive. Acute cholecystitis doubtful but not conclusively excluded based on these images and prior ultrasound, which showed a nondistended gallbladder. Patent common bile duct -Abd US: Cholelithiasis. Borderline gallbladder wall thickening, could indicate early acute cholecystitis changes. Consider hepatobiliary nuclear scan if there is high clinical suspicion. Negative for dilated ducts Incidental finding bilateral pleural effusions -acute hep panel, HIV sc neg ZHAO, improving DM2 HTN CHF Schizoaffective disorder Plan: - Contineu to monitor off abx -03/16 S/P Ertapenem d # 8/7 for ESBL E.coli PNA -03/15 SP IV Vancomycin #14 -03/09 SP ZOsyn #4 -03/06 SP Ceftriaxone #2 -03/03 SP Ancef #2 -03/01 SP Cefepime #2 -f/u Bcx x2 -Remove femoral line -f/u cx -Monitor CBC/CMP, temperatures -wound care -Sx, GI, Neuro f/u Discussed with RN Subjective Allergies: Coded Allergies: No Known Allergies (Unverified , 02/16/18) Subjective Afebrile 4L NC No leukocytosis Objective Vital Signs Last 24 Hour Vital Signs Date Time Temp Pulse Resp B/P (MAP) Pulse Ox O2 Delivery O2 Flow Rate FiO2 03/17/18 06:35 141/84 03/17/18 04:00 83 03/17/18 04:00 98.2 73 24 141/84 (103) 94 03/17/18 04:00 Nasal Cannula 4.0 Nasal Cannula 4.0 Nasal Cannula 4.0 03/17/18 00:00 73 03/17/18 00:00 Nasal Cannula 4.0 Nasal Cannula 4.0 Nasal Cannula 4.0 03/16/18 23:57 98.4 79 20 133/78 (96) 93 03/16/18 23:32 133/78 03/16/18 20:45 98.6 03/16/18 20:22 Nasal Cannula 4.0 36 03/16/18 20:22 96 Nasal Cannula 4.0 36 03/16/18 20:13 97 121/64 03/16/18 20:00 Nasal Cannula 4.0 Nasal Cannula 4.0 Nasal Cannula 4.0 03/16/18 20:00 99.0 97 24 121/64 (83) 95 03/16/18 20:00 76 03/16/18 18:09 145/85 03/16/18 16:00 Nasal Cannula 4.0 Nasal Cannula 4.0 Nasal Cannula 4.0 03/16/18 16:00 88 03/16/18 16:00 98.4 84 18 145/85 (105) 96 03/16/18 12:00 Nasal Cannula 4.0 Nasal Cannula 4.0 Nasal Cannula 4.0 03/16/18 12:00 98.6 89 18 140/73 (95) 98 03/16/18 11:52 88 03/16/18 11:46 140/73 03/16/18 10:00 Nasal Cannula 4.0 Nasal Cannula 4.0 Nasal Cannula 4.0 03/16/18 09:15 84 139/75 03/16/18 09:14 84 03/16/18 08:00 98.2 84 18 139/75 (96) 98 03/16/18 08:00 Nasal Cannula 4.0 Nasal Cannula 4.0 Nasal Cannula 4.0 03/16/18 07:50 77 Height (Feet): 6 Height (Inches): 0.00 Weight (Pounds): 270 Objective General Appearance: NAD HEENT: normocephalic, atraumatic Neck: non-tender, normal alignment Respiratory/Chest: chest wall non-tender, lungs clear Cardiovascular/Chest: normal peripheral pulses Abdomen: normal bowel sounds, non tender Extremities: B/l leg erythema, swelling, with scratches and some minimal drainage Microbiology Date/Time Source Procedure Growth Status 03/15/18 11:05 Blood Blood Culture - Preliminary NO GROWTH AFTER 24 HOURS Resulted 03/15/18 10:55 Blood Blood Culture - Preliminary NO GROWTH AFTER 24 HOURS Resulted Laboratory Tests Test 03/17/18 03:45 White Blood Count 8.6 K/UL (4.8-10.8) Red Blood Count 5.75 M/UL (4.70-6.10) Hemoglobin 14.8 G/DL (14.2-18.0) Hematocrit 47.1 % (42.0-52.0) Mean Corpuscular Volume 82 FL (80-99) Mean Corpuscular Hemoglobin 25.7 PG (27.0-31.0) L Mean Corpuscular Hemoglobin Concent 31.4 G/DL (32.0-36.0) L Red Cell Distribution Width 17.6 % (11.6-14.8) H Platelet Count 251 K/UL (150-450) Mean Platelet Volume 8.1 FL (6.5-10.1) Neutrophils (%) (Auto) 72.7 % (45.0-75.0) Lymphocytes (%) (Auto) 19.9 % (20.0-45.0) L Monocytes (%) (Auto) 4.8 % (1.0-10.0) Eosinophils (%) (Auto) 1.8 % (0.0-3.0) Basophils (%) (Auto) 0.9 % (0.0-2.0) Sodium Level 156 MMOL/L (136-145) H Potassium Level 4.2 MMOL/L (3.5-5.1) Chloride Level 123 MMOL/L (98-107) H Carbon Dioxide Level 26 MMOL/L (21-32) Anion Gap 7 mmol/L (5-15) Blood Urea Nitrogen 40 mg/dL (7-18) H Creatinine 1.4 MG/DL (0.55-1.30) H Estimat Glomerular Filtration Rate 52.6 mL/min (>60) Glucose Level 257 MG/DL (74-106) H Calcium Level 8.1 MG/DL (8.5-10.1) L Phosphorus Level 2.7 MG/DL (2.5-4.9) Magnesium Level 2.3 MG/DL (1.8-2.4) Total Bilirubin 1.3 MG/DL (0.2-1.0) H Direct Bilirubin 0.7 MG/DL (0.0-0.3) H Aspartate Amino Transf (AST/SGOT) 27 U/L (15-37) Alanine Aminotransferase (ALT/SGPT) 25 U/L (12-78) Alkaline Phosphatase 234 U/L (46-116) H Total Protein 6.6 G/DL (6.4-8.2) Albumin 1.7 G/DL (3.4-5.0) L Globulin 4.9 g/dL Albumin/Globulin Ratio 0.3 (1.0-2.7) L Current Medications Medications (Trade) Dose Ordered Sig/Roseline Route PRN Reason Start Time Stop Time Status Last Admin Dose Admin Acetaminophen (Tylenol) 650 mg Q4H PRN ORAL fever (temp>100.5F) 03/15/18 21:00 03/30/18 20:59 03/16/18 20:15 Carvedilol (Coreg) 50 mg EVERY 12 HOURS ORAL 03/16/18 09:00 04/15/18 08:59 03/16/18 20:13 Chlorhexidine Gluconate (Ashley-Hex 2%) 1 applic DAILY@1999 TOPIC 03/16/18 20:00 04/01/18 19:59 03/16/18 20:15 Dextrose (Dextrose 50%) 25 ml Q30M PRN IV Hypoglycemia 03/15/18 21:00 03/30/18 13:59 Dextrose (Dextrose 50%) 50 ml Q30M PRN IV Hypoglycemia 03/15/18 21:00 03/30/18 13:59 Digoxin (Lanoxin) 0.125 mg DAILY IVP 03/16/18 09:00 04/02/18 14:21 03/16/18 09:14 Haloperidol Lactate (Haldol) 5 mg Q4H PRN IM Agitation 03/15/18 21:00 03/31/18 20:59 Hydralazine HCl (Apresoline) 25 mg Q6HR ORAL 03/16/18 00:00 04/15/18 00:00 03/17/18 06:35 Insulin Aspart (NovoLOG) EVERY 6 HOURS SUBQ 03/16/18 00:00 04/10/18 11:59 03/17/18 06:39 Metoprolol Tartrate (Lopressor) 10 mg Q1H PRN IVP Heart rate >120 per minute 03/15/18 21:45 03/31/18 19:44 Nitroglycerin (Ntg) 0.4 mg Q5M PRN SL Prn Chest Pain 03/15/18 21:00 03/30/18 18:20 Ondansetron HCl (Zofran) 4 mg Q6H PRN IVP Nausea & Vomiting 03/15/18 21:00 04/14/18 20:59 Pantoprazole (Protonix) 40 mg DAILY IV 03/16/18 09:00 04/08/18 08:59 03/16/18 09:13 Polyethylene Glycol (Miralax) 17 gm DAILYPRN PRN ORAL Constipation 03/15/18 21:00 04/14/18 20:59 Osmar Swenson MD Mar 17, 2018 07:18
[2018-03-17 08:00] VITALS: BP 129/76
[2018-03-17] MEDS: Pantoprazole Inj IV SCH (08:58)
[2018-03-17] MEDS: Digoxin 0.5mg/2ml Inj IVP SCH (08:59)
[2018-03-17] MEDS: Carvedilol 25mg Tab ORAL SCH ×2 (08:59→21:00)
--- NOTE | 2018-03-17 09:09 | General Progress Note ---
Assessment/Plan Problem List: (1) Diabetes ICD Codes: E11.9 - Type 2 diabetes mellitus without complications SNOMED: 81898341 (2) Cellulitis ICD Codes: L03.90 - Cellulitis, unspecified SNOMED: 244813764 (3) Acute renal failure ICD Codes: N17.9 - Acute kidney failure, unspecified SNOMED: 92818348 (4) Rapid atrial fibrillation ICD Codes: I48.91 - Unspecified atrial fibrillation SNOMED: 236202891 Status: unchanged Assessment/Plan vent cardio f/u abx cbc bmp am ltach eval Subjective Allergies: Coded Allergies: No Known Allergies (Unverified , 02/16/18) All Systems: reviewed and negative except above Subjective o2nc ng sleeping Objective Last 24 Hour Vital Signs Date Time Temp Pulse Resp B/P (MAP) Pulse Ox O2 Delivery O2 Flow Rate FiO2 03/17/18 08:59 89 03/17/18 08:59 89 129/76 03/17/18 08:00 97.7 89 22 129/76 (93) 96 03/17/18 08:00 Nasal Cannula 4.0 Nasal Cannula 4.0 Nasal Cannula 4.0 03/17/18 06:35 141/84 03/17/18 04:00 83 03/17/18 04:00 98.2 73 24 141/84 (103) 94 03/17/18 04:00 Nasal Cannula 4.0 Nasal Cannula 4.0 Nasal Cannula 4.0 03/17/18 00:00 73 03/17/18 00:00 Nasal Cannula 4.0 Nasal Cannula 4.0 Nasal Cannula 4.0 03/16/18 23:57 98.4 79 20 133/78 (96) 93 03/16/18 23:32 133/78 03/16/18 20:45 98.6 03/16/18 20:22 Nasal Cannula 4.0 36 03/16/18 20:22 96 Nasal Cannula 4.0 36 03/16/18 20:13 97 121/64 03/16/18 20:00 Nasal Cannula 4.0 Nasal Cannula 4.0 Nasal Cannula 4.0 03/16/18 20:00 99.0 97 24 121/64 (83) 95 03/16/18 20:00 76 03/16/18 18:09 145/85 03/16/18 16:00 Nasal Cannula 4.0 Nasal Cannula 4.0 Nasal Cannula 4.0 03/16/18 16:00 88 03/16/18 16:00 98.4 84 18 145/85 (105) 96 03/16/18 12:00 Nasal Cannula 4.0 Nasal Cannula 4.0 Nasal Cannula 4.0 03/16/18 12:00 98.6 89 18 140/73 (95) 98 03/16/18 11:52 88 03/16/18 11:46 140/73 03/16/18 10:00 Nasal Cannula 4.0 Nasal Cannula 4.0 Nasal Cannula 4.0 03/16/18 09:15 84 139/75 03/16/18 09:14 84 Intake and Output 03/16/18 03/17/18 18:59 06:59 Intake Total 1830 ml 1530 ml Output Total 1301 ml 1000 ml Balance 529 ml 530 ml Free Water 750 ml 750 ml Tube Feeding 780 ml 780 ml Other 300 ml Output Urine Total 1300 ml 1000 ml Stool Total 1 ml # Bowel Movements 1 Laboratory Tests 03/17/18 03:45: White Blood Count 8.6, Red Blood Count 5.75, Hemoglobin 14.8, Hematocrit 47.1, Mean Corpuscular Volume 82, Mean Corpuscular Hemoglobin 25.7L, Mean Corpuscular Hemoglobin Concent 31.4L, Red Cell Distribution Width 17.6H, Platelet Count 251 , Mean Platelet Volume 8.1, Neutrophils (%) (Auto) 72.7, Lymphocytes (%) (Auto) 19.9L, Monocytes (%) (Auto) 4.8, Eosinophils (%) (Auto) 1.8, Basophils (%) (Auto ) 0.9, Sodium Level 156H, Potassium Level 4.2, Chloride Level 123H, Carbon Dioxide Level 26, Anion Gap 7, Blood Urea Nitrogen 40H, Creatinine 1.4H, Estimat Glomerular Filtration Rate 52.6, Glucose Level 257H, Calcium Level 8.1L , Phosphorus Level 2.7, Magnesium Level 2.3, Total Bilirubin 1.3H, Direct Bilirubin 0.7H, Aspartate Amino Transf (AST/SGOT) 27, Alanine Aminotransferase ( ALT/SGPT) 25, Alkaline Phosphatase 234H, Total Protein 6.6, Albumin 1.7L, Globulin 4.9, Albumin/Globulin Ratio 0.3L Height (Feet): 6 Height (Inches): 0.00 Weight (Pounds): 270 General Appearance: lethargic EENT: normal ENT inspection Neck: normal alignment Cardiovascular: normal peripheral pulses, normal rate, regular rhythm Respiratory/Chest: chest wall non-tender, decreased breath sounds Abdomen: normal bowel sounds, non tender, soft Extremities: normal inspection Edema: no edema noted Arm (L), no edema noted Arm (R), no edema noted Leg (L), no edema noted Leg (R), no edema noted Pedal (L), no edema noted Pedal (R), no edema noted Generalized Neurologic: motor weakness Skin: normal pigmentation, warm/dry Mick Garcia DO Mar 17, 2018 09:09
--- NOTE | 2018-03-17 10:22 | General Surgery Progress Note ---
General Surgery-Progress Note Subjective Additional Comments no acute events. stable. Objective Last 24 Hour Vital Signs Date Time Temp Pulse Resp B/P (MAP) Pulse Ox O2 Delivery O2 Flow Rate FiO2 03/17/18 08:59 89 03/17/18 08:59 89 129/76 03/17/18 08:00 97.7 89 22 129/76 (93) 96 03/17/18 08:00 86 03/17/18 08:00 Nasal Cannula 4.0 Nasal Cannula 4.0 Nasal Cannula 4.0 03/17/18 06:35 141/84 03/17/18 04:00 83 03/17/18 04:00 98.2 73 24 141/84 (103) 94 03/17/18 04:00 Nasal Cannula 4.0 Nasal Cannula 4.0 Nasal Cannula 4.0 03/17/18 00:00 73 03/17/18 00:00 Nasal Cannula 4.0 Nasal Cannula 4.0 Nasal Cannula 4.0 03/16/18 23:57 98.4 79 20 133/78 (96) 93 03/16/18 23:32 133/78 03/16/18 20:45 98.6 03/16/18 20:22 Nasal Cannula 4.0 36 03/16/18 20:22 96 Nasal Cannula 4.0 36 03/16/18 20:13 97 121/64 03/16/18 20:00 Nasal Cannula 4.0 Nasal Cannula 4.0 Nasal Cannula 4.0 03/16/18 20:00 99.0 97 24 121/64 (83) 95 03/16/18 20:00 76 03/16/18 18:09 145/85 03/16/18 16:00 Nasal Cannula 4.0 Nasal Cannula 4.0 Nasal Cannula 4.0 03/16/18 16:00 88 03/16/18 16:00 98.4 84 18 145/85 (105) 96 03/16/18 12:00 Nasal Cannula 4.0 Nasal Cannula 4.0 Nasal Cannula 4.0 03/16/18 12:00 98.6 89 18 140/73 (95) 98 03/16/18 11:52 88 03/16/18 11:46 140/73 I&O Intake and Output 03/16/18 03/17/18 18:59 06:59 Intake Total 1830 ml 1530 ml Output Total 1301 ml 1000 ml Balance 529 ml 530 ml Free Water 750 ml 750 ml Tube Feeding 780 ml 780 ml Other 300 ml Output Urine Total 1300 ml 1000 ml Stool Total 1 ml # Bowel Movements 1 Wound: clean, dry Drains: other Cardiovascular: RSR Respiratory: clear Abdomen: soft, non-tender, present bowel sounds Extremities: other Laboratory Tests Test 03/17/18 03:45 White Blood Count 8.6 K/UL (4.8-10.8) Red Blood Count 5.75 M/UL (4.70-6.10) Hemoglobin 14.8 G/DL (14.2-18.0) Hematocrit 47.1 % (42.0-52.0) Mean Corpuscular Volume 82 FL (80-99) Mean Corpuscular Hemoglobin 25.7 PG (27.0-31.0) L Mean Corpuscular Hemoglobin Concent 31.4 G/DL (32.0-36.0) L Red Cell Distribution Width 17.6 % (11.6-14.8) H Platelet Count 251 K/UL (150-450) Mean Platelet Volume 8.1 FL (6.5-10.1) Neutrophils (%) (Auto) 72.7 % (45.0-75.0) Lymphocytes (%) (Auto) 19.9 % (20.0-45.0) L Monocytes (%) (Auto) 4.8 % (1.0-10.0) Eosinophils (%) (Auto) 1.8 % (0.0-3.0) Basophils (%) (Auto) 0.9 % (0.0-2.0) Sodium Level 156 MMOL/L (136-145) H Potassium Level 4.2 MMOL/L (3.5-5.1) Chloride Level 123 MMOL/L (98-107) H Carbon Dioxide Level 26 MMOL/L (21-32) Anion Gap 7 mmol/L (5-15) Blood Urea Nitrogen 40 mg/dL (7-18) H Creatinine 1.4 MG/DL (0.55-1.30) H Estimat Glomerular Filtration Rate 52.6 mL/min (>60) Glucose Level 257 MG/DL (74-106) H Calcium Level 8.1 MG/DL (8.5-10.1) L Phosphorus Level 2.7 MG/DL (2.5-4.9) Magnesium Level 2.3 MG/DL (1.8-2.4) Total Bilirubin 1.3 MG/DL (0.2-1.0) H Direct Bilirubin 0.7 MG/DL (0.0-0.3) H Aspartate Amino Transf (AST/SGOT) 27 U/L (15-37) Alanine Aminotransferase (ALT/SGPT) 25 U/L (12-78) Alkaline Phosphatase 234 U/L (46-116) H Total Protein 6.6 G/DL (6.4-8.2) Albumin 1.7 G/DL (3.4-5.0) L Globulin 4.9 g/dL Albumin/Globulin Ratio 0.3 (1.0-2.7) L Plan Problems: (1) Abnormal LFTs Assessment & Plan: will obtain hepatitis panel US abdomen - Cholelithiasis; Borderline gallbladder wall thickening, could indicate early acute cholecystitis changes. Consider hepatobiliary nuclear scan if there is high clinical suspicion Negative for dilated ducts will monitor clinically for now HIDA noted hep panel negative hiv neg LFTs noted / improving no surgical intervention necessary at this time. -unlikely cholecystitis. likely contracted GB trend labs (2) Cellulitis Assessment & Plan: chronic bilateral lower extremity wounds / ulcers acute on chronic cellulitis no abscess noted serous drainage multiple wounds that seem traumatic like cuts some small ulcers see wound photos for details -IV Abx as per ID -Keep legs elevated -apply skin protectant, hydrogel, non adherent dressings, and wrap (3) Decubital ulcer Assessment & Plan: patient with two small DTI to sacrum now. precautions being taken. patient being turned q2h. foam dressings and skin protectant has been in place. air mattress. unfortunately given condition and current state despite maximal effort there are unavoidable pressure wounds noted. will continue to maximal care R buttocks DTPI evolving .Wound moist -viable with edges adherent and flat (L) 2cm x (W)2.5cm. Periwound is clean and intact. Reabsorbed blood blister L buttocks. Area is purple with red tinged borders (L)5cm x (W)1cm. Triad paste applied and covered with Sacral foam drsg.Pt positioned on side both heels off- loaded with pillow.Moisture intertrigo notd to abd folds and groin areas .Triad paste applied to affected area. Both heels dry and blanchable and are off- loaded with pillow. Pt is on an air fluidized mattress. All wound preventive protocols and Tx orders maintained. thank you Garth Cornelius Mar 17, 2018 10:22
[2018-03-17 12:00] VITALS: BP 126/65
--- NOTE | 2018-03-17 12:46 | Neurology Progress Note ---
Interim History Interim History Interim History Mr. Cornejo is awake and responsive. He can follow a few simple commands. He however is still unable to communicate well. He indicates that he can see but does not count fingers. He can move his hands on command. He cannot move his legs. He is able to protrude his tongue on command. Review of Systems Neuro Review of Systems Unable to obtain. Objective Physical Exam Last Vital Signs Date Time Temp Pulse Resp B/P (MAP) Pulse Ox O2 Delivery O2 Flow Rate FiO2 03/17/18 12:37 126/65 03/17/18 12:00 97.7 77 26 95 03/17/18 08:00 Nasal Cannula 4.0 Nasal Cannula 4.0 Nasal Cannula 4.0 03/16/18 20:22 36 Laboratory Tests Test 03/17/18 03:45 White Blood Count 8.6 K/UL (4.8-10.8) Red Blood Count 5.75 M/UL (4.70-6.10) Hemoglobin 14.8 G/DL (14.2-18.0) Hematocrit 47.1 % (42.0-52.0) Mean Corpuscular Volume 82 FL (80-99) Mean Corpuscular Hemoglobin 25.7 PG (27.0-31.0) L Mean Corpuscular Hemoglobin Concent 31.4 G/DL (32.0-36.0) L Red Cell Distribution Width 17.6 % (11.6-14.8) H Platelet Count 251 K/UL (150-450) Mean Platelet Volume 8.1 FL (6.5-10.1) Neutrophils (%) (Auto) 72.7 % (45.0-75.0) Lymphocytes (%) (Auto) 19.9 % (20.0-45.0) L Monocytes (%) (Auto) 4.8 % (1.0-10.0) Eosinophils (%) (Auto) 1.8 % (0.0-3.0) Basophils (%) (Auto) 0.9 % (0.0-2.0) Sodium Level 156 MMOL/L (136-145) H Potassium Level 4.2 MMOL/L (3.5-5.1) Chloride Level 123 MMOL/L (98-107) H Carbon Dioxide Level 26 MMOL/L (21-32) Anion Gap 7 mmol/L (5-15) Blood Urea Nitrogen 40 mg/dL (7-18) H Creatinine 1.4 MG/DL (0.55-1.30) H Estimat Glomerular Filtration Rate 52.6 mL/min (>60) Glucose Level 257 MG/DL (74-106) H Calcium Level 8.1 MG/DL (8.5-10.1) L Phosphorus Level 2.7 MG/DL (2.5-4.9) Magnesium Level 2.3 MG/DL (1.8-2.4) Total Bilirubin 1.3 MG/DL (0.2-1.0) H Direct Bilirubin 0.7 MG/DL (0.0-0.3) H Aspartate Amino Transf (AST/SGOT) 27 U/L (15-37) Alanine Aminotransferase (ALT/SGPT) 25 U/L (12-78) Alkaline Phosphatase 234 U/L (46-116) H Total Protein 6.6 G/DL (6.4-8.2) Albumin 1.7 G/DL (3.4-5.0) L Globulin 4.9 g/dL Albumin/Globulin Ratio 0.3 (1.0-2.7) L Neurologic Exam Objective PHYSICAL EXAMINATION: GENERAL: He is a well developed, well nourished, gentleman, lying in bed. HEAD: Normocephalic and atraumatic. EENT: Examination benign. NECK: No neck rigidity was observed. NEUROLOGIC EXAMINATION: MENTAL STATUS EXAMINATION: He was awake and more responsive. He followed a few simple commands inconsistently. Further mental status testing was impossible. SPEECH: Could not be tested. LANGUAGE: Could not be tested. CRANIAL NERVE EXAMINATION: II: He did blink to threat but not consistently. He said he could see but could not count fingers. III, IV & : The external ocular movements were present on oculocephalic maneuvers. The pupils were 3 mm in diameter and did not react to light. V & VII: The corneal reflexes were equal. VIII: He did respond to sounds and had no nystagmus. IX & X: The gag reflex was absent. XI: The sternocleidomastoids and trapezii did function. XII: He protruded his tongue on command. MOTOR SYSTEM: The tone was normal in all 4 extremities. Examination of muscle mass revealed no focal wasting. 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 Examination of power was impossible to perform he was able to give a minimal squeeze with both hands but was unable to move the lower extremities. SENSORY EXAMINATION: He did not respond to deep painful stimuli. REFLEXES: 0 at the biceps, triceps, brachioradialis, knees, and ankles. The right plantar response could not be tested as he had no toes, and the left plantar response was mute. COORDINATION, STANCE & GAIT: Could not be tested. Impression/Recommendations Diagnostic Impression 1. Mr. Dustin Cornejo is a 57-year-old, gentleman, of unknown handedness, who was hospitalized for right lower extremity cellulitis and then in the hospital deteriorated to a point where became quite altered with regards to his mental state on 03/05/2018 and was transferred to the ICU. He was noted to have atrial fibrillation with a rapid ventricular rate and shortness of breath related to hypoxic respiratory failure and then became agitated as a result of which he was given multiple doses of Ativan, Haldol, and morphine. 2. He is awake and responsive. He can follow a few simple commands. He however is still unable to communicate well. He indicates that he can see but does not count fingers. He can move his hands on command. He cannot move his legs. He is able to protrude his tongue on command. 3. On neurological examination, at this time, he is awake. He he follows commands inconsistently. He does blink to threat inconsistently. He is able to give me fair hand strategic planning specialist but is unable to move his lower extremities. He does not respond to deep pain. He does not demonstrate any lateralizing findings. He has globally absent deep tendon reflexes, and the plantar response on the left side is mute. 4. His latest laboratory data on my initial evaluation revealed his WBC count was elevated to 13,400. He had his last ESR on 03/02/2018 and it was 7. His blood gases revealed that he had a pH of 7.48, pCO2 of 35, and pO2 of 51. His latest chemistry panel revealed that his sodium was elevated to 155. His chloride was elevated to 118. His BUN was elevated to 41. His creatinine was elevated to 1.3. His glucose was elevated to 208. His total bilirubin was elevated at 2.8. His AST, ALT, and alkaline phosphatase were all elevated. His albumin was low at 2.2. His urine toxicology screen on admission revealed that tetrahydrocannabinols were present. His serologies were negative for HIV. 5. Further laboratory tests revealed a normal B12, Folate, TSH but the Hb A1C was elevated at 9.2%. 6. The CT of the brain done on 03/07/18 revealed atrophy and deep white matter disease but no acute pathology. 7. The EEG revealed a moderate toxic/metabolic encephalopathy. 8. The patient's history, neurological examination, laboratory data, EEG and imaging are most compatible with a severe toxic metabolic encephalopathy, which is multifactorial. The recent cardiac arrest has led to an anoxic/ischemic encephalopathy. Acute intracranial pathology of significance has been excluded. 9. His encephalopathy continues to improve. It is unclear if he has become cortically blind. Recommendations 1. Continue present management. 2. Keep the patient off all mind-altering drugs. 3. Correct toxic/metabolic imbalances the best possible. 4. MRI of brain to evaluate for cortical blindness on Monday. Dawit Marshall M.D., M.S.P.H. Dawit Marshall MD Mar 17, 2018 12:46
--- NOTE | 2018-03-17 12:59 | Nephrology Progress Note ---
Assessment/Plan Assessment 1.hypernatremia 2.ZHAO 3.ckd 4.respiratory failure 5.CHF Plan increase free water via NG start 5dw hold lasix monitoring renal function avoid NSAID replace electrolyte as need it Subjective Constitutional: Reports: no symptoms Genitourinary: Reports: no symptoms Neurologic/Psychiatric: Reports: no symptoms Subjective in monitor bed confused NAD Objective Objective Last 24 Hour Vital Signs Date Time Temp Pulse Resp B/P (MAP) Pulse Ox O2 Delivery O2 Flow Rate FiO2 03/17/18 12:37 126/65 03/17/18 12:00 97.7 77 26 126/65 (85) 95 03/17/18 12:00 Nasal Cannula 4.0 Nasal Cannula 4.0 Nasal Cannula 4.0 03/17/18 08:59 89 03/17/18 08:59 89 129/76 03/17/18 08:00 97.7 89 22 129/76 (93) 96 03/17/18 08:00 86 03/17/18 08:00 Nasal Cannula 4.0 Nasal Cannula 4.0 Nasal Cannula 4.0 03/17/18 06:35 141/84 03/17/18 04:00 83 03/17/18 04:00 98.2 73 24 141/84 (103) 94 03/17/18 04:00 Nasal Cannula 4.0 Nasal Cannula 4.0 Nasal Cannula 4.0 03/17/18 00:00 73 03/17/18 00:00 Nasal Cannula 4.0 Nasal Cannula 4.0 Nasal Cannula 4.0 03/16/18 23:57 98.4 79 20 133/78 (96) 93 03/16/18 23:32 133/78 03/16/18 20:45 98.6 03/16/18 20:22 Nasal Cannula 4.0 36 03/16/18 20:22 96 Nasal Cannula 4.0 36 03/16/18 20:13 97 121/64 03/16/18 20:00 Nasal Cannula 4.0 Nasal Cannula 4.0 Nasal Cannula 4.0 03/16/18 20:00 99.0 97 24 121/64 (83) 95 03/16/18 20:00 76 03/16/18 18:09 145/85 03/16/18 16:00 Nasal Cannula 4.0 Nasal Cannula 4.0 Nasal Cannula 4.0 03/16/18 16:00 88 03/16/18 16:00 98.4 84 18 145/85 (105) 96 Intake and Output 03/16/18 03/17/18 18:59 06:59 Intake Total 1830 ml 1530 ml Output Total 1301 ml 1000 ml Balance 529 ml 530 ml Free Water 750 ml 750 ml Tube Feeding 780 ml 780 ml Other 300 ml Output Urine Total 1300 ml 1000 ml Stool Total 1 ml # Bowel Movements 1 Laboratory Tests 03/17/18 03:45: White Blood Count 8.6, Red Blood Count 5.75, Hemoglobin 14.8, Hematocrit 47.1, Mean Corpuscular Volume 82, Mean Corpuscular Hemoglobin 25.7L, Mean Corpuscular Hemoglobin Concent 31.4L, Red Cell Distribution Width 17.6H, Platelet Count 251 , Mean Platelet Volume 8.1, Neutrophils (%) (Auto) 72.7, Lymphocytes (%) (Auto) 19.9L, Monocytes (%) (Auto) 4.8, Eosinophils (%) (Auto) 1.8, Basophils (%) (Auto ) 0.9, Sodium Level 156H, Potassium Level 4.2, Chloride Level 123H, Carbon Dioxide Level 26, Anion Gap 7, Blood Urea Nitrogen 40H, Creatinine 1.4H, Estimat Glomerular Filtration Rate 52.6, Glucose Level 257H, Calcium Level 8.1L , Phosphorus Level 2.7, Magnesium Level 2.3, Total Bilirubin 1.3H, Direct Bilirubin 0.7H, Aspartate Amino Transf (AST/SGOT) 27, Alanine Aminotransferase ( ALT/SGPT) 25, Alkaline Phosphatase 234H, Total Protein 6.6, Albumin 1.7L, Globulin 4.9, Albumin/Globulin Ratio 0.3L Height (Feet): 6 Height (Inches): 0.00 Weight (Pounds): 270 Objective HEENT: Atraumatic and normocephalic. Anicteric. Pupils are equal, round, and reactive to light and accommodation. Extraocular muscles intact. Altered. NECK: JVP elevated about 5cm. No carotid bruits. Carotid upstrokes 2+ bilaterally. CARDIOVASCULAR: Normal S1, S2. Irregularly irregular rhythm. 2/6 Holosystolic murmur, gallop, or rub. LUNGS: Diminished BS both lungs. ABDOMEN: Soft, nontender, and nondistended. No hepatosplenomegaly. Positive bowel sounds. EXTREMITIES: There is 1+ bilateral lower extremity edema with ulcerations. Maryana Collier MD Mar 17, 2018 12:59
[2018-03-17] MEDS ORDERED: Tubing IV Secondary IV ONE (15:41)
[2018-03-17] MEDS ORDERED: NS 275ml ONE (15:41)
[2018-03-17 16:00] VITALS: BP 138/82
--- NOTE | 2018-03-17 16:36 | General Progress Note ---
Assessment/Plan Assessment/Plan Assessment/Plan Problems: (1) Dysphagia ICD Codes: R13.10 - Dysphagia, unspecified SNOMED: 64677096, 291670975 (2) Drug abuse ICD Codes: F19.10 - Other psychoactive substance abuse, uncomplicated SNOMED: 86816851 (3) Encounter for PEG (percutaneous endoscopic gastrostomy) ICD Codes: Z43.1 - Encounter for attention to gastrostomy SNOMED: 255781439, 219817817 (4) Diastolic CHF, chronic ICD Codes: I50.32 - Chronic diastolic (congestive) heart failure SNOMED: 02294348, 399498701 (5) Abnormal LFTs ICD Codes: R94.5 - Abnormal results of liver function studies SNOMED: 179796480 Status: progressing Assessment/Plan us reviewed >> Cholelithiasis. Borderline gallbladder wall thickening, could indicate early acute cholecystitis changes. neg hepatitis panel HIDA negative LFTs still elevated, trend ST evaluation noted patient extubated TFs per RD to goal ST evaluation when more alert patient now on Eliquis that needs to be held for 48 hours prior to any procedure electrolyte correction prn transfusions ppi fu labs Subjective Allergies: Coded Allergies: No Known Allergies (Unverified , 02/16/18) Subjective Above noted awake but non communicative tolerating TF via NGT - Vital AF Objective Last 24 Hour Vital Signs Date Time Temp Pulse Resp B/P (MAP) Pulse Ox O2 Delivery O2 Flow Rate FiO2 03/17/18 12:37 126/65 03/17/18 12:00 97.7 77 26 126/65 (85) 95 03/17/18 12:00 Nasal Cannula 4.0 Nasal Cannula 4.0 Nasal Cannula 4.0 03/17/18 11:54 80 03/17/18 08:59 89 03/17/18 08:59 89 129/76 03/17/18 08:00 97.7 89 22 129/76 (93) 96 03/17/18 08:00 86 03/17/18 08:00 Nasal Cannula 4.0 Nasal Cannula 4.0 Nasal Cannula 4.0 03/17/18 06:35 141/84 03/17/18 04:00 83 03/17/18 04:00 98.2 73 24 141/84 (103) 94 03/17/18 04:00 Nasal Cannula 4.0 Nasal Cannula 4.0 Nasal Cannula 4.0 03/17/18 00:00 73 03/17/18 00:00 Nasal Cannula 4.0 Nasal Cannula 4.0 Nasal Cannula 4.0 03/16/18 23:57 98.4 79 20 133/78 (96) 93 03/16/18 23:32 133/78 03/16/18 20:45 98.6 03/16/18 20:22 Nasal Cannula 4.0 36 03/16/18 20:22 96 Nasal Cannula 4.0 36 03/16/18 20:13 97 121/64 03/16/18 20:00 Nasal Cannula 4.0 Nasal Cannula 4.0 Nasal Cannula 4.0 03/16/18 20:00 99.0 97 24 121/64 (83) 95 03/16/18 20:00 76 03/16/18 18:09 145/85 Intake and Output 03/16/18 03/17/18 19:00 07:00 Intake Total 1830 ml 1530 ml Output Total 1301 ml 1000 ml Balance 529 ml 530 ml Free Water 750 ml 750 ml Tube Feeding 780 ml 780 ml Other 300 ml Output Urine Total 1300 ml 1000 ml Stool Total 1 ml # Bowel Movements 1 Laboratory Tests 03/17/18 03:45: White Blood Count 8.6, Red Blood Count 5.75, Hemoglobin 14.8, Hematocrit 47.1, Mean Corpuscular Volume 82, Mean Corpuscular Hemoglobin 25.7L, Mean Corpuscular Hemoglobin Concent 31.4L, Red Cell Distribution Width 17.6H, Platelet Count 251 , Mean Platelet Volume 8.1, Neutrophils (%) (Auto) 72.7, Lymphocytes (%) (Auto) 19.9L, Monocytes (%) (Auto) 4.8, Eosinophils (%) (Auto) 1.8, Basophils (%) (Auto ) 0.9, Sodium Level 156H, Potassium Level 4.2, Chloride Level 123H, Carbon Dioxide Level 26, Anion Gap 7, Blood Urea Nitrogen 40H, Creatinine 1.4H, Estimat Glomerular Filtration Rate 52.6, Glucose Level 257H, Calcium Level 8.1L , Phosphorus Level 2.7, Magnesium Level 2.3, Total Bilirubin 1.3H, Direct Bilirubin 0.7H, Aspartate Amino Transf (AST/SGOT) 27, Alanine Aminotransferase ( ALT/SGPT) 25, Alkaline Phosphatase 234H, Total Protein 6.6, Albumin 1.7L, Globulin 4.9, Albumin/Globulin Ratio 0.3L Height (Feet): 6 Height (Inches): 0.00 Weight (Pounds): 270 Objective WDWN WM NCAT, (+) O2 NC supple CTA RRR soft NT ND (+) finch no edema Nancy Polanco MD Mar 17, 2018 16:36
[2018-03-17] MEDS ORDERED: Haloperidol 5mg/ml Inj IM PRN (19:00)
[2018-03-17] MEDS ORDERED: Nitroglycerin Subl 0.4mg tab SL PRN (19:00)
[2018-03-17] MEDS ORDERED: Metoprolol 5mg/5ml Inj IVP PRN (19:45)
[2018-03-17 20:00] VITALS: BP 130/77
[2018-03-17] MEDS ORDERED: Miralax 17gm pkt ORAL PRN (21:00)
[2018-03-17] MEDS: Dyna-Hex 2% Top Sol 2oz TOPIC SCH (22:03)
[2018-03-18] VITALS: BP 124/80
[2018-03-18] MEDS: NovoLOG Insulin Flexpen SUBQ SCH ×4 (00:20→17:57)
--- NOTE | 2018-03-18 02:07 | Diagnostic Imaging Report ---
EXAM: XR Abdomen, 2 Views CLINICAL HISTORY: NGT TECHNIQUE: Frontal view of the abdomen/pelvis with upright view of the abdomen. COMPARISON: No relevant prior studies available. FINDINGS: Intraperitoneal space: No free air. Gastrointestinal tract: Unremarkable. No dilation. Bones/joints: Unremarkable. Tubes, lines and devices: Enteric tube with tip in the gastric fundus. IMPRESSION: Enteric tube with tip in the gastric fundus.
[2018-03-18 04:00] VITALS: BP 134/85
[2018-03-18] MEDS: HydrALAZINE 25mg tab ORAL SCH ×4 (05:40→17:56)
[2018-03-18 07:28] LABS: BASOPHILS % (AUTO) 0.8 % (0.0-2.0); EOSINOPHILS % (AUTO) 1.1 % (0.0-3.0); HEMOGLOBIN 14.5 G/DL (14.2-18.0); LYMPHOCYTES % (AUTO) 15.5 % (20.0-45.0); MEAN CORPUSCULAR VOLUME 81 FL (80-99); MONOCYTES % (AUTO) 4.4 % (1.0-10.0); NEUTROPHILS % (AUTO) 78.1 % (45.0-75.0); PLATELET COUNT 277 K/UL (150-450); RED BLOOD COUNT 5.65 M/UL (4.70-6.10); RED CELL DISTRIBUTION WIDTH 17.2 % (11.6-14.8); WHITE BLOOD COUNT 11.3 K/UL (4.8-10.8)
[2018-03-18 07:48] LABS: ANION GAP 11 mmol/L (5-15); BLOOD UREA NITROGEN 38 mg/dL (7-18); CALCIUM 8.1 MG/DL (8.5-10.1); CARBON DIOXIDE 25 MMOL/L (21-32); CHLORIDE 122 MMOL/L (98-107); CREATININE 1.2 MG/DL (0.55-1.30); POTASSIUM 4.2 MMOL/L (3.5-5.1); SODIUM 158 MMOL/L (136-145)
[2018-03-18 08:00] VITALS: BP 112/80
--- NOTE | 2018-03-18 08:54 | General Progress Note ---
Assessment/Plan Problem List: (1) Diabetes ICD Codes: E11.9 - Type 2 diabetes mellitus without complications SNOMED: 52931838 (2) Cellulitis ICD Codes: L03.90 - Cellulitis, unspecified SNOMED: 633391925 (3) Acute renal failure ICD Codes: N17.9 - Acute kidney failure, unspecified SNOMED: 31426979 (4) Rapid atrial fibrillation ICD Codes: I48.91 - Unspecified atrial fibrillation SNOMED: 883403944 Status: unchanged Assessment/Plan vent cardio f/u abx cbc bmp am gi eval ltach eval Subjective Constitutional: Reports: weakness Allergies: Coded Allergies: No Known Allergies (Unverified , 02/16/18) All Systems: reviewed and negative except above Subjective o2nc ng sleeping Objective Last 24 Hour Vital Signs Date Time Temp Pulse Resp B/P (MAP) Pulse Ox O2 Delivery O2 Flow Rate FiO2 03/18/18 08:00 97.0 78 21 112/80 (91) 95 03/18/18 05:40 134/85 03/18/18 04:00 98.2 68 18 134/85 (101) 95 03/18/18 00:00 Nasal Cannula 4.0 Nasal Cannula 4.0 Nasal Cannula 4.0 03/18/18 00:00 124/80 03/18/18 00:00 97.0 20 124/80 (95) 95 03/17/18 21:00 77 130/77 03/17/18 21:00 Nasal Cannula 4.0 Nasal Cannula 4.0 Nasal Cannula 4.0 03/17/18 20:00 97.7 77 19 130/77 (94) 95 03/17/18 17:40 138/82 03/17/18 16:00 79 03/17/18 16:00 98.2 79 22 138/82 (100) 97 03/17/18 16:00 Nasal Cannula 4.0 Nasal Cannula 4.0 Nasal Cannula 4.0 03/17/18 12:37 126/65 03/17/18 12:00 97.7 77 26 126/65 (85) 95 03/17/18 12:00 Nasal Cannula 4.0 Nasal Cannula 4.0 Nasal Cannula 4.0 03/17/18 11:54 80 03/17/18 08:59 89 03/17/18 08:59 89 129/76 Intake and Output 03/17/18 03/18/18 19:00 07:00 Intake Total 1665 ml 625 ml Output Total 1800 ml 1100 ml Balance -135 ml -475 ml Free Water 500 ml 250 ml IV Total 155 ml 50 ml Tube Feeding 650 ml 325 ml Other 360 ml Output Urine Total 1800 ml 1100 ml # Bowel Movements 3 Laboratory Tests 03/18/18 04:40: White Blood Count 11.3H, Red Blood Count 5.65, Hemoglobin 14.5, Hematocrit 46.0 , Mean Corpuscular Volume 81, Mean Corpuscular Hemoglobin 25.7L, Mean Corpuscular Hemoglobin Concent 31.6L, Red Cell Distribution Width 17.2H, Platelet Count 277, Mean Platelet Volume 7.1, Neutrophils (%) (Auto) 78.1H, Lymphocytes (%) (Auto) 15.5L, Monocytes (%) (Auto) 4.4, Eosinophils (%) (Auto) 1.1, Basophils (%) (Auto) 0.8, Sodium Level 158H, Potassium Level 4.2, Chloride Level 122H, Carbon Dioxide Level 25, Anion Gap 11, Blood Urea Nitrogen 38H, Creatinine 1.2, Estimat Glomerular Filtration Rate > 60, Glucose Level 214H, Calcium Level 8.1L Height (Feet): 6 Height (Inches): 0.00 Weight (Pounds): 270 General Appearance: lethargic EENT: normal ENT inspection Neck: normal alignment Cardiovascular: normal peripheral pulses, normal rate, regular rhythm Respiratory/Chest: chest wall non-tender, decreased breath sounds Abdomen: normal bowel sounds, non tender, soft Extremities: normal inspection Edema: no edema noted Arm (L), no edema noted Arm (R), no edema noted Leg (L), no edema noted Leg (R), no edema noted Pedal (L), no edema noted Pedal (R), no edema noted Generalized Neurologic: motor weakness Skin: normal pigmentation, warm/dry Mick Garcia DO Mar 18, 2018 08:54
[2018-03-18] MEDS: Carvedilol 25mg Tab ORAL SCH ×2 (09:00→21:06)
[2018-03-18] MEDS: Digoxin 0.5mg/2ml Inj IVP SCH (09:37)
[2018-03-18] MEDS: Pantoprazole Inj IV SCH (09:38)
--- NOTE | 2018-03-18 10:20 | Neurology Progress Note ---
Interim History Interim History Interim History Mr. Cornejo is awake and responsive. He can follow a few simple commands. He however is still unable to communicate well. He indicates that he can see but does not count fingers. He can move his hands on command. He cannot move his legs. He is able to protrude his tongue on command. Review of Systems Neuro Review of Systems Unable to obtain. Objective Physical Exam Last Vital Signs Date Time Temp Pulse Resp B/P (MAP) Pulse Ox O2 Delivery O2 Flow Rate FiO2 03/18/18 09:37 78 03/18/18 09:00 112/80 03/18/18 08:00 97.0 21 95 03/18/18 00:00 Nasal Cannula 4.0 Nasal Cannula 4.0 Nasal Cannula 4.0 03/16/18 20:22 36 Laboratory Tests Test 03/18/18 04:40 White Blood Count 11.3 K/UL (4.8-10.8) H Red Blood Count 5.65 M/UL (4.70-6.10) Hemoglobin 14.5 G/DL (14.2-18.0) Hematocrit 46.0 % (42.0-52.0) Mean Corpuscular Volume 81 FL (80-99) Mean Corpuscular Hemoglobin 25.7 PG (27.0-31.0) L Mean Corpuscular Hemoglobin Concent 31.6 G/DL (32.0-36.0) L Red Cell Distribution Width 17.2 % (11.6-14.8) H Platelet Count 277 K/UL (150-450) Mean Platelet Volume 7.1 FL (6.5-10.1) Neutrophils (%) (Auto) 78.1 % (45.0-75.0) H Lymphocytes (%) (Auto) 15.5 % (20.0-45.0) L Monocytes (%) (Auto) 4.4 % (1.0-10.0) Eosinophils (%) (Auto) 1.1 % (0.0-3.0) Basophils (%) (Auto) 0.8 % (0.0-2.0) Sodium Level 158 MMOL/L (136-145) H Potassium Level 4.2 MMOL/L (3.5-5.1) Chloride Level 122 MMOL/L (98-107) H Carbon Dioxide Level 25 MMOL/L (21-32) Anion Gap 11 mmol/L (5-15) Blood Urea Nitrogen 38 mg/dL (7-18) H Creatinine 1.2 MG/DL (0.55-1.30) Estimat Glomerular Filtration Rate > 60 mL/min (>60) Glucose Level 214 MG/DL (74-106) H Calcium Level 8.1 MG/DL (8.5-10.1) L Neurologic Exam Objective PHYSICAL EXAMINATION: GENERAL: He is a well developed, well nourished, gentleman, lying in bed. HEAD: Normocephalic and atraumatic. EENT: Examination benign. NECK: No neck rigidity was observed. NEUROLOGIC EXAMINATION: MENTAL STATUS EXAMINATION: He was awake and more responsive. He followed a few simple commands inconsistently. Further mental status testing was impossible. SPEECH: Could not be tested. LANGUAGE: Could not be tested. CRANIAL NERVE EXAMINATION: II: He did blink to threat but not consistently. He said he could see but could not count fingers. III, IV & : The external ocular movements were present on oculocephalic maneuvers. The pupils were 3 mm in diameter and did not react to light. V & VII: The corneal reflexes were equal. VIII: He did respond to sounds and had no nystagmus. IX & X: The gag reflex was absent. XI: The sternocleidomastoids and trapezii did function. XII: He protruded his tongue on command. MOTOR SYSTEM: The tone was normal in all 4 extremities. Examination of muscle mass revealed no focal wasting. 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 Examination of power was impossible to perform he was able to give a minimal squeeze with both hands but was unable to move the lower extremities. SENSORY EXAMINATION: He did not respond to deep painful stimuli. REFLEXES: 0 at the biceps, triceps, brachioradialis, knees, and ankles. The right plantar response could not be tested as he had no toes, and the left plantar response was mute. COORDINATION, STANCE & GAIT: Could not be tested. Impression/Recommendations Diagnostic Impression 1. Mr. Dustin Cornejo is a 57-year-old, gentleman, of unknown handedness, who was hospitalized for right lower extremity cellulitis and then in the hospital deteriorated to a point where became quite altered with regards to his mental state on 03/05/2018 and was transferred to the ICU. He was noted to have atrial fibrillation with a rapid ventricular rate and shortness of breath related to hypoxic respiratory failure and then became agitated as a result of which he was given multiple doses of Ativan, Haldol, and morphine. 2. He is awake and responsive. He can follow a few simple commands. He however is still unable to communicate well. He indicates that he can see but does not count fingers. He can move his hands on command. He cannot move his legs. He is able to protrude his tongue on command. 3. On neurological examination, at this time, he is awake. He he follows commands inconsistently. He does blink to threat inconsistently. He is able to give me fair hand jumpbasting lining baster but is unable to move his lower extremities. He does not respond to deep pain. He does not demonstrate any lateralizing findings. He has globally absent deep tendon reflexes, and the plantar response on the left side is mute. 4. His latest laboratory data on my initial evaluation revealed his WBC count was elevated to 13,400. He had his last ESR on 03/02/2018 and it was 7. His blood gases revealed that he had a pH of 7.48, pCO2 of 35, and pO2 of 51. His latest chemistry panel revealed that his sodium was elevated to 155. His chloride was elevated to 118. His BUN was elevated to 41. His creatinine was elevated to 1.3. His glucose was elevated to 208. His total bilirubin was elevated at 2.8. His AST, ALT, and alkaline phosphatase were all elevated. His albumin was low at 2.2. His urine toxicology screen on admission revealed that tetrahydrocannabinols were present. His serologies were negative for HIV. 5. Further laboratory tests revealed a normal B12, Folate, TSH but the Hb A1C was elevated at 9.2%. 6. The CT of the brain done on 03/07/18 revealed atrophy and deep white matter disease but no acute pathology. 7. The EEG revealed a moderate toxic/metabolic encephalopathy. 8. The patient's history, neurological examination, laboratory data, EEG and imaging are most compatible with a severe toxic metabolic encephalopathy, which is multifactorial. The recent cardiac arrest has led to an anoxic/ischemic encephalopathy. Acute intracranial pathology of significance has been excluded. 9. His encephalopathy continues to improve. It is unclear if he has become cortically blind. Recommendations 1. Continue present management. 2. Keep the patient off all mind-altering drugs. 3. Correct toxic/metabolic imbalances the best possible. 4. MRI of brain to evaluate for cortical blindness on Monday. Dawit Marshall M.D., M.S.P.H. Dawit Marshall MD Mar 18, 2018 10:20
[2018-03-18 12:00] VITALS: BP 132/84
[2018-03-18 16:00] VITALS: BP 131/77
--- NOTE | 2018-03-18 16:18 | General Progress Note ---
Assessment/Plan Assessment/Plan Assessment/Plan Problems: (1) Dysphagia ICD Codes: R13.10 - Dysphagia, unspecified SNOMED: 93915514, 033773558 (2) Drug abuse ICD Codes: F19.10 - Other psychoactive substance abuse, uncomplicated SNOMED: 41917770 (3) Encounter for PEG (percutaneous endoscopic gastrostomy) ICD Codes: Z43.1 - Encounter for attention to gastrostomy SNOMED: 582898974, 681023662 (4) Diastolic CHF, chronic ICD Codes: I50.32 - Chronic diastolic (congestive) heart failure SNOMED: 79642185, 381986503 (5) Abnormal LFTs ICD Codes: R94.5 - Abnormal results of liver function studies SNOMED: 824063534 Status: progressing Assessment/Plan Cholelithiasis. Borderline gallbladder wall thickening. neg hepatitis panel and HIDA ST evaluation noted TFs per RD ST f/u prn transfusions ppi fu labs Subjective Allergies: Coded Allergies: No Known Allergies (Unverified , 02/16/18) Subjective Above noted awake but non communicative tolerating TF via NGT - Vital AF looks at MD Objective Last 24 Hour Vital Signs Date Time Temp Pulse Resp B/P (MAP) Pulse Ox O2 Delivery O2 Flow Rate FiO2 03/18/18 12:55 132/84 03/18/18 12:00 98.4 71 20 132/84 (100) 97 03/18/18 09:37 78 03/18/18 09:21 95 Nasal Cannula 4.0 36 03/18/18 09:19 Nasal Cannula 4.0 36 03/18/18 09:00 Nasal Cannula 4.0 Nasal Cannula 4.0 Nasal Cannula 4.0 03/18/18 09:00 78 112/80 03/18/18 08:00 97.0 78 21 112/80 (91) 95 03/18/18 05:40 134/85 03/18/18 04:00 98.2 68 18 134/85 (101) 95 03/18/18 00:00 Nasal Cannula 4.0 Nasal Cannula 4.0 Nasal Cannula 4.0 03/18/18 00:00 124/80 03/18/18 00:00 97.0 20 124/80 (95) 95 03/17/18 21:00 77 130/77 03/17/18 21:00 Nasal Cannula 4.0 Nasal Cannula 4.0 Nasal Cannula 4.0 03/17/18 20:00 97.7 77 19 130/77 (94) 95 03/17/18 17:40 138/82 Intake and Output 03/17/18 03/18/18 18:59 06:59 Intake Total 1730 ml 625 ml Output Total 1800 ml 1100 ml Balance -70 ml -475 ml Free Water 500 ml 250 ml IV Total 155 ml 50 ml Tube Feeding 715 ml 325 ml Other 360 ml Output Urine Total 1800 ml 1100 ml # Bowel Movements 3 Laboratory Tests 03/18/18 04:40: White Blood Count 11.3H, Red Blood Count 5.65, Hemoglobin 14.5, Hematocrit 46.0 , Mean Corpuscular Volume 81, Mean Corpuscular Hemoglobin 25.7L, Mean Corpuscular Hemoglobin Concent 31.6L, Red Cell Distribution Width 17.2H, Platelet Count 277, Mean Platelet Volume 7.1, Neutrophils (%) (Auto) 78.1H, Lymphocytes (%) (Auto) 15.5L, Monocytes (%) (Auto) 4.4, Eosinophils (%) (Auto) 1.1, Basophils (%) (Auto) 0.8, Sodium Level 158H, Potassium Level 4.2, Chloride Level 122H, Carbon Dioxide Level 25, Anion Gap 11, Blood Urea Nitrogen 38H, Creatinine 1.2, Estimat Glomerular Filtration Rate > 60, Glucose Level 214H, Calcium Level 8.1L Height (Feet): 6 Height (Inches): 0.00 Weight (Pounds): 270 Objective WDWN WM NCAT, (+) O2 NC supple CTA RRR soft NT ND (+) finch no edema Nancy Polanco MD Mar 18, 2018 16:18
--- NOTE | 2018-03-18 16:57 | General Surgery Progress Note ---
General Surgery-Progress Note Subjective Symptoms: improved Additional Comments looks more comfortable today ng tube in place Objective Last 24 Hour Vital Signs Date Time Temp Pulse Resp B/P (MAP) Pulse Ox O2 Delivery O2 Flow Rate FiO2 03/18/18 12:55 132/84 03/18/18 12:00 98.4 71 20 132/84 (100) 97 03/18/18 09:37 78 03/18/18 09:21 95 Nasal Cannula 4.0 36 03/18/18 09:19 Nasal Cannula 4.0 36 03/18/18 09:00 Nasal Cannula 4.0 Nasal Cannula 4.0 Nasal Cannula 4.0 03/18/18 09:00 78 112/80 03/18/18 08:00 97.0 78 21 112/80 (91) 95 03/18/18 05:40 134/85 03/18/18 04:00 98.2 68 18 134/85 (101) 95 03/18/18 00:00 Nasal Cannula 4.0 Nasal Cannula 4.0 Nasal Cannula 4.0 03/18/18 00:00 124/80 03/18/18 00:00 97.0 20 124/80 (95) 95 03/17/18 21:00 77 130/77 03/17/18 21:00 Nasal Cannula 4.0 Nasal Cannula 4.0 Nasal Cannula 4.0 03/17/18 20:00 97.7 77 19 130/77 (94) 95 03/17/18 17:40 138/82 I&O Intake and Output 03/17/18 03/18/18 18:59 06:59 Intake Total 1730 ml 625 ml Output Total 1800 ml 1100 ml Balance -70 ml -475 ml Free Water 500 ml 250 ml IV Total 155 ml 50 ml Tube Feeding 715 ml 325 ml Other 360 ml Output Urine Total 1800 ml 1100 ml # Bowel Movements 3 Drains: other Cardiovascular: RSR Respiratory: clear Abdomen: non-tender, present bowel sounds Extremities: other Laboratory Tests Test 03/18/18 04:40 White Blood Count 11.3 K/UL (4.8-10.8) H Red Blood Count 5.65 M/UL (4.70-6.10) Hemoglobin 14.5 G/DL (14.2-18.0) Hematocrit 46.0 % (42.0-52.0) Mean Corpuscular Volume 81 FL (80-99) Mean Corpuscular Hemoglobin 25.7 PG (27.0-31.0) L Mean Corpuscular Hemoglobin Concent 31.6 G/DL (32.0-36.0) L Red Cell Distribution Width 17.2 % (11.6-14.8) H Platelet Count 277 K/UL (150-450) Mean Platelet Volume 7.1 FL (6.5-10.1) Neutrophils (%) (Auto) 78.1 % (45.0-75.0) H Lymphocytes (%) (Auto) 15.5 % (20.0-45.0) L Monocytes (%) (Auto) 4.4 % (1.0-10.0) Eosinophils (%) (Auto) 1.1 % (0.0-3.0) Basophils (%) (Auto) 0.8 % (0.0-2.0) Sodium Level 158 MMOL/L (136-145) H Potassium Level 4.2 MMOL/L (3.5-5.1) Chloride Level 122 MMOL/L (98-107) H Carbon Dioxide Level 25 MMOL/L (21-32) Anion Gap 11 mmol/L (5-15) Blood Urea Nitrogen 38 mg/dL (7-18) H Creatinine 1.2 MG/DL (0.55-1.30) Estimat Glomerular Filtration Rate > 60 mL/min (>60) Glucose Level 214 MG/DL (74-106) H Calcium Level 8.1 MG/DL (8.5-10.1) L Plan Problems: (1) Abnormal LFTs Assessment & Plan: will obtain hepatitis panel US abdomen - Cholelithiasis; Borderline gallbladder wall thickening, could indicate early acute cholecystitis changes. Consider hepatobiliary nuclear scan if there is high clinical suspicion Negative for dilated ducts will monitor clinically for now HIDA noted hep panel negative hiv neg LFTs noted / improving no surgical intervention necessary at this time. -unlikely cholecystitis. likely contracted GB trend labs (2) Cellulitis Assessment & Plan: chronic bilateral lower extremity wounds / ulcers acute on chronic cellulitis no abscess noted serous drainage multiple wounds that seem traumatic like cuts some small ulcers see wound photos for details -IV Abx as per ID -Keep legs elevated -apply skin protectant, hydrogel, non adherent dressings, and wrap (3) Decubital ulcer Assessment & Plan: patient with two small DTI to sacrum now. precautions being taken. patient being turned q2h. foam dressings and skin protectant has been in place. air mattress. unfortunately given condition and current state despite maximal effort there are unavoidable pressure wounds noted. will continue to maximal care R buttocks DTPI evolving .Wound moist -viable with edges adherent and flat (L) 2cm x (W)2.5cm. Periwound is clean and intact. Reabsorbed blood blister L buttocks. Area is purple with red tinged borders (L)5cm x (W)1cm. Triad paste applied and covered with Sacral foam drsg.Pt positioned on side both heels off- loaded with pillow.Moisture intertrigo notd to abd folds and groin areas .Triad paste applied to affected area. Both heels dry and blanchable and are off- loaded with pillow. Pt is on an air fluidized mattress. All wound preventive protocols and Tx orders maintained. thank you Garth Cornelius Mar 18, 2018 16:57
--- NOTE | 2018-03-18 19:07 | Cardiology Progress Note ---
Assessment/Plan Assessment/Plan 1. Atrial fibrillation with controlled ventricular response, continue carvedilol and digoxin. 2. 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 3. Severe mitral regurgitation, afterload reduction with hydralazine. 4. Acute respiratory failure, resolved on NC oxygen. Subjective Subjective Transferred to the med-surg unit. No cardiac events. Objective Last 24 Hour Vital Signs Date Time Temp Pulse Resp B/P (MAP) Pulse Ox O2 Delivery O2 Flow Rate FiO2 03/18/18 17:56 131/77 03/18/18 16:00 97.4 80 18 131/77 (95) 97 03/18/18 12:55 132/84 03/18/18 12:00 98.4 71 20 132/84 (100) 97 03/18/18 09:37 78 03/18/18 09:21 95 Nasal Cannula 4.0 36 03/18/18 09:19 Nasal Cannula 4.0 36 03/18/18 09:00 Nasal Cannula 4.0 Nasal Cannula 4.0 Nasal Cannula 4.0 03/18/18 09:00 78 112/80 03/18/18 08:00 97.0 78 21 112/80 (91) 95 03/18/18 05:40 134/85 03/18/18 04:00 98.2 68 18 134/85 (101) 95 03/18/18 00:00 Nasal Cannula 4.0 Nasal Cannula 4.0 Nasal Cannula 4.0 03/18/18 00:00 124/80 03/18/18 00:00 97.0 20 124/80 (95) 95 03/17/18 21:00 77 130/77 18 21:00 Nasal Cannula 4.0 Nasal Cannula 4.0 Nasal Cannula 4.0 03/17/18 20:00 97.7 77 19 130/77 (94) 95 Intake and Output 03/17/18 03/18/18 19:00 07:00 Intake Total 1665 ml 690 ml Output Total 1800 ml 1100 ml Balance -135 ml -410 ml Free Water 500 ml 250 ml IV Total 155 ml 50 ml Tube Feeding 650 ml 390 ml Other 360 ml Output Urine Total 1800 ml 1100 ml # Bowel Movements 3 2D Echo: LVEF 25%, Bi-atrial enlargement, Severe MR, RVSP 24 mmHg, RAP 15 mmHg Laboratory Tests Test 03/18/18 04:40 White Blood Count 11.3 K/UL (4.8-10.8) H Red Blood Count 5.65 M/UL (4.70-6.10) Hemoglobin 14.5 G/DL (14.2-18.0) Hematocrit 46.0 % (42.0-52.0) Mean Corpuscular Volume 81 FL (80-99) Mean Corpuscular Hemoglobin 25.7 PG (27.0-31.0) L Mean Corpuscular Hemoglobin Concent 31.6 G/DL (32.0-36.0) L Red Cell Distribution Width 17.2 % (11.6-14.8) H Platelet Count 277 K/UL (150-450) Mean Platelet Volume 7.1 FL (6.5-10.1) Neutrophils (%) (Auto) 78.1 % (45.0-75.0) H Lymphocytes (%) (Auto) 15.5 % (20.0-45.0) L Monocytes (%) (Auto) 4.4 % (1.0-10.0) Eosinophils (%) (Auto) 1.1 % (0.0-3.0) Basophils (%) (Auto) 0.8 % (0.0-2.0) Sodium Level 158 MMOL/L (136-145) H Potassium Level 4.2 MMOL/L (3.5-5.1) Chloride Level 122 MMOL/L (98-107) H Carbon Dioxide Level 25 MMOL/L (21-32) Anion Gap 11 mmol/L (5-15) Blood Urea Nitrogen 38 mg/dL (7-18) H Creatinine 1.2 MG/DL (0.55-1.30) Estimat Glomerular Filtration Rate > 60 mL/min (>60) Glucose Level 214 MG/DL (74-106) H Calcium Level 8.1 MG/DL (8.5-10.1) L Objective HEENT: Atraumatic and normocephalic. Anicteric. Pupils are equal, round, and reactive to light and accommodation. Extraocular muscles intact. NECK: JVP elevated about 5cm. No carotid bruits. Carotid upstrokes 2+ bilaterally. CARDIOVASCULAR: Normal S1, S2. Irregularly irregular rhythm. 2/6 Holosystolic murmur, gallop, or rub. LUNGS: Diminished BS both lungs. ABDOMEN: Soft, nontender, and nondistended. No hepatosplenomegaly. Positive bowel sounds. EXTREMITIES: There is 1+ bilateral lower extremity edema with ulcerations. Sudarshan Stuart MD Mar 18, 2018 19:07
[2018-03-18 20:00] VITALS: BP 169/85
[2018-03-18] MEDS: Dyna-Hex 2% Top Sol 2oz TOPIC SCH (20:00)
--- NOTE | 2018-03-18 22:28 | Nephrology Progress Note ---
Assessment/Plan Assessment 1.hypernatremia 2.ZHAO 3.ckd 4.respiratory failure 5.CHF Plan increase free water via NG start 5dw hold lasix monitoring renal function avoid NSAID replace electrolyte as need it Subjective Constitutional: Reports: no symptoms HEENT: Reports: no symptoms Neurologic/Psychiatric: Reports: no symptoms Subjective in monitor bed confused NAD Objective Objective Last 24 Hour Vital Signs Date Time Temp Pulse Resp B/P (MAP) Pulse Ox O2 Delivery O2 Flow Rate FiO2 03/18/18 21:06 70 165/87 03/18/18 20:00 97.5 70 20 169/85 (113) 03/18/18 17:56 131/77 03/18/18 16:00 97.4 80 18 131/77 (95) 97 03/18/18 12:55 132/84 03/18/18 12:00 98.4 71 20 132/84 (100) 97 03/18/18 09:37 78 03/18/18 09:21 95 Nasal Cannula 4.0 36 03/18/18 09:19 Nasal Cannula 4.0 36 03/18/18 09:00 Nasal Cannula 4.0 Nasal Cannula 4.0 Nasal Cannula 4.0 03/18/18 09:00 78 112/80 03/18/18 08:00 97.0 78 21 112/80 (91) 95 03/18/18 05:40 134/85 03/18/18 04:00 98.2 68 18 134/85 (101) 95 03/18/18 00:00 Nasal Cannula 4.0 Nasal Cannula 4.0 Nasal Cannula 4.0 03/18/18 00:00 124/80 03/18/18 00:00 97.0 20 124/80 (95) 95 Intake and Output 03/17/18 03/18/18 19:00 07:00 Intake Total 1665 ml 690 ml Output Total 1800 ml 1100 ml Balance -135 ml -410 ml Free Water 500 ml 250 ml IV Total 155 ml 50 ml Tube Feeding 650 ml 390 ml Other 360 ml Output Urine Total 1800 ml 1100 ml # Bowel Movements 3 Laboratory Tests 03/18/18 04:40: White Blood Count 11.3H, Red Blood Count 5.65, Hemoglobin 14.5, Hematocrit 46.0 , Mean Corpuscular Volume 81, Mean Corpuscular Hemoglobin 25.7L, Mean Corpuscular Hemoglobin Concent 31.6L, Red Cell Distribution Width 17.2H, Platelet Count 277, Mean Platelet Volume 7.1, Neutrophils (%) (Auto) 78.1H, Lymphocytes (%) (Auto) 15.5L, Monocytes (%) (Auto) 4.4, Eosinophils (%) (Auto) 1.1, Basophils (%) (Auto) 0.8, Sodium Level 158H, Potassium Level 4.2, Chloride Level 122H, Carbon Dioxide Level 25, Anion Gap 11, Blood Urea Nitrogen 38H, Creatinine 1.2, Estimat Glomerular Filtration Rate > 60, Glucose Level 214H, Calcium Level 8.1L Height (Feet): 6 Height (Inches): 0.00 Weight (Pounds): 270 Objective HEENT: Atraumatic and normocephalic. Anicteric. Pupils are equal, round, and reactive to light and accommodation. Extraocular muscles intact. Altered. NECK: JVP elevated about 5cm. No carotid bruits. Carotid upstrokes 2+ bilaterally. CARDIOVASCULAR: Normal S1, S2. Irregularly irregular rhythm. 2/6 Holosystolic murmur, gallop, or rub. LUNGS: Diminished BS both lungs. ABDOMEN: Soft, nontender, and nondistended. No hepatosplenomegaly. Positive bowel sounds. EXTREMITIES: There is 1+ bilateral lower extremity edema with ulcerations. Maryana Collier MD Mar 18, 2018 22:28
[2018-03-19] VITALS (7 sets, daily range): BP systolic 132–148; BP diastolic 75–96
[2018-03-19] MEDS: NovoLOG Insulin Flexpen SUBQ SCH ×4 (00:12→18:12)
[2018-03-19] MEDS: HydrALAZINE 25mg tab ORAL SCH ×4 (00:15→17:16)
[2018-03-19 09:00] LABS: ANION GAP 8 mmol/L (5-15); BLOOD UREA NITROGEN 39 mg/dL (7-18); CALCIUM 8.1 MG/DL (8.5-10.1); CARBON DIOXIDE 26 MMOL/L (21-32); CHLORIDE 120 MMOL/L (98-107); CREATININE 1.2 MG/DL (0.55-1.30); SODIUM 154 MMOL/L (136-145)
[2018-03-19 09:20] LABS: BASOPHILS % (AUTO) 0.9 % (0.0-2.0); EOSINOPHILS % (AUTO) 2.2 % (0.0-3.0); HEMATOCRIT 44.7 % (42.0-52.0); LYMPHOCYTES % (AUTO) 16.4 % (20.0-45.0); MEAN CORPUSCULAR VOLUME 81 FL (80-99); MONOCYTES % (AUTO) 4.7 % (1.0-10.0); NEUTROPHILS % (AUTO) 75.8 % (45.0-75.0); PLATELET COUNT 272 K/UL (150-450); RED BLOOD COUNT 5.51 M/UL (4.70-6.10); RED CELL DISTRIBUTION WIDTH 17.1 % (11.6-14.8); WHITE BLOOD COUNT 10.5 K/UL (4.8-10.8)
--- NOTE | 2018-03-19 10:03 | Infectious Diseases Prog Note ---
Assessment/Plan Assessment/Plan Assessment/Plan s/p Code blue 03/08 Aspiration PNA -sp cx ESBL E.coli (S Zosyn, Erta) -03/14 CXR: Persistent right basilar infiltrate and/or pleural effusion. Increasing left infrahilar infiltrate -03/08 cXR: Increasing right upper lung parenchymal opacity may reflect developing infiltrate in the right upper lobe. There is improved aeration of the right lung base -CXR: Improved aeration of the right lung, presumably representing improving atelectasis. Right lower lobe infiltrate. There may also be pleural fluid on the right. Bilateral interstitial disease. Probably on the basis of pulmonary edema. However, considerable central bronchial wall thickening suggests a significant chronic component Fever, SP -03/18 sp R femoral line removed -03/15 Bcx NTD Leukocytosis, SP B/l LE purulent cellulitis- legs with scratches (self inflicted) ; SP -wound cx MRSA -L foot tibia/fibula xray: No acute process -R foot tibia/fibula xray: No acute bony trauma Acute encephalopathy - improving Acute respiratory failure- due to Afib w/ RVR- n ow intubated 03/08 after Code blue Afib w/ RVR Elevated LFTs, SP - HIDA inconclusive but low prob for acute cholecysitis -HIDA: Questionable very small tracer collection in the region of the gallbladder fossa on delayed images, could represent partial filling of a nondistended gallbladder but this is not conclusive. Acute cholecystitis doubtful but not conclusively excluded based on these images and prior ultrasound, which showed a nondistended gallbladder. Patent common bile duct -Abd US: Cholelithiasis. Borderline gallbladder wall thickening, could indicate early acute cholecystitis changes. Consider hepatobiliary nuclear scan if there is high clinical suspicion. Negative for dilated ducts Incidental finding bilateral pleural effusions -acute hep panel, HIV sc neg ZHAO, improving DM2 HTN CHF Schizoaffective disorder Plan: - Continue to monitor off abx -03/16 S/P Ertapenem d # 8 -03/15 SP IV Vancomycin #14 -03/09 SP ZOsyn #4 -03/06 SP Ceftriaxone #2 -03/03 SP Ancef #2 -03/01 SP Cefepime #2 -f/u Bcx x2 -f/u cx -Monitor CBC/CMP, temperatures -wound care -Sx, GI, Neuro f/u Discussed with SILVINO Subjective Allergies: Coded Allergies: No Known Allergies (Unverified , 02/16/18) Subjective afebrile on med surge at 4L NC leukocytosis resolved Bcx NTD femoral line removed Objective Vital Signs Last 24 Hour Vital Signs Date Time Temp Pulse Resp B/P (MAP) Pulse Ox O2 Delivery O2 Flow Rate FiO2 03/19/18 08:00 98.1 74 20 132/89 (103) 97 03/19/18 05:36 136/62 03/19/18 04:00 96.8 74 136/82 (100) 03/19/18 00:15 137/75 03/19/18 00:00 96.2 66 19 137/75 (95) 96 03/18/18 21:06 70 165/87 03/18/18 21:00 Nasal Cannula 4.0 Nasal Cannula 4.0 Nasal Cannula 4.0 03/18/18 20:00 97.5 70 20 169/85 (113) 03/18/18 17:56 131/77 03/18/18 16:00 97.4 80 18 131/77 (95) 97 18 12:55 132/84 03/18/18 12:00 98.4 71 20 132/84 (100) 97 Height (Feet): 6 Height (Inches): 0.00 Weight (Pounds): 270 Objective General Appearance: WD/WN Lines, tubes and drains: peripheral HEENT: normocephalic, atraumatic Neck: non-tender, normal alignment Respiratory/Chest: chest wall non-tender, lungs clear Breasts: no masses Cardiovascular/Chest: normal peripheral pulses Abdomen: normal bowel sounds, non tender Extremities: B/l leg erythema, swelling, with scratches and some minimal drainage Laboratory Tests Test 03/19/18 08:03 White Blood Count 10.5 K/UL (4.8-10.8) Red Blood Count 5.51 M/UL (4.70-6.10) Hemoglobin 14.0 G/DL (14.2-18.0) L Hematocrit 44.7 % (42.0-52.0) Mean Corpuscular Volume 81 FL (80-99) Mean Corpuscular Hemoglobin 25.4 PG (27.0-31.0) L Mean Corpuscular Hemoglobin Concent 31.3 G/DL (32.0-36.0) L Red Cell Distribution Width 17.1 % (11.6-14.8) H Platelet Count 272 K/UL (150-450) Mean Platelet Volume 8.0 FL (6.5-10.1) Neutrophils (%) (Auto) 75.8 % (45.0-75.0) H Lymphocytes (%) (Auto) 16.4 % (20.0-45.0) L Monocytes (%) (Auto) 4.7 % (1.0-10.0) Eosinophils (%) (Auto) 2.2 % (0.0-3.0) Basophils (%) (Auto) 0.9 % (0.0-2.0) Sodium Level 154 MMOL/L (136-145) H Potassium Level 4.0 MMOL/L (3.5-5.1) Chloride Level 120 MMOL/L (98-107) H Carbon Dioxide Level 26 MMOL/L (21-32) Anion Gap 8 mmol/L (5-15) Blood Urea Nitrogen 39 mg/dL (7-18) H Creatinine 1.2 MG/DL (0.55-1.30) Estimat Glomerular Filtration Rate > 60 mL/min (>60) Glucose Level 274 MG/DL (74-106) H Calcium Level 8.1 MG/DL (8.5-10.1) L Current Medications Medications (Trade) Dose Ordered Sig/Roseline Route PRN Reason Start Time Stop Time Status Last Admin Dose Admin Acetaminophen (Tylenol) 650 mg Q4H PRN ORAL fever (temp>100.5F) 03/17/18 19:00 03/30/18 18:59 Carvedilol (Coreg) 50 mg EVERY 12 HOURS ORAL 03/17/18 21:00 04/15/18 08:59 03/18/18 21:06 Dextrose 1,000 ml @ 50 mls/hr Q20H IV 03/17/18 19:00 04/16/18 12:59 03/18/18 21:07 Dextrose (Dextrose 50%) 25 ml Q30M PRN IV Hypoglycemia 03/17/18 19:00 03/30/18 13:59 Dextrose (Dextrose 50%) 50 ml Q30M PRN IV Hypoglycemia 03/17/18 19:00 03/30/18 13:59 Digoxin (Lanoxin) 0.125 mg DAILY IVP 03/18/18 09:00 04/02/18 14:21 03/18/18 09:37 Haloperidol Lactate (Haldol) 5 mg Q4H PRN IM Agitation 03/17/18 19:00 03/31/18 18:59 Hydralazine HCl (Apresoline) 25 mg Q6HR ORAL 03/18/18 00:00 04/15/18 00:00 03/19/18 05:36 Insulin Aspart (NovoLOG) EVERY 6 HOURS SUBQ 03/18/18 00:00 04/10/18 11:59 03/19/18 05:47 Nitroglycerin (Ntg) 0.4 mg Q5M PRN SL Prn Chest Pain 03/17/18 19:00 03/30/18 18:20 Ondansetron HCl (Zofran) 4 mg Q6H PRN IVP Nausea & Vomiting 03/17/18 21:00 04/14/18 20:59 Pantoprazole (Protonix) 40 mg DAILY IV 03/18/18 09:00 04/08/18 08:59 03/18/18 09:38 Polyethylene Glycol (Miralax) 17 gm DAILYPRN PRN ORAL Constipation 03/17/18 21:00 04/14/18 20:59 Susan Dennis M.D. Mar 19, 2018 10:03
[2018-03-19] MEDS: Pantoprazole Inj IV SCH (10:05)
[2018-03-19] MEDS: Carvedilol 25mg Tab ORAL SCH ×2 (10:05→22:31)
[2018-03-19] MEDS: Digoxin 0.5mg/2ml Inj IVP SCH (10:08)
--- NOTE | 2018-03-19 10:59 | GI Progress Note ---
Assessment/Plan Problems: (1) Dysphagia ICD Codes: R13.10 - Dysphagia, unspecified SNOMED: 24986843, 136259586 (2) Drug abuse ICD Codes: F19.10 - Other psychoactive substance abuse, uncomplicated SNOMED: 85194226 (3) Encounter for PEG (percutaneous endoscopic gastrostomy) ICD Codes: Z43.1 - Encounter for attention to gastrostomy SNOMED: 490576990, 956894526 (4) Diastolic CHF, chronic ICD Codes: I50.32 - Chronic diastolic (congestive) heart failure SNOMED: 67810869, 017188342 (5) Abnormal LFTs ICD Codes: R94.5 - Abnormal results of liver function studies SNOMED: 584924094 Status: stable Status Narrative Discussed with Dr. Noe. Assessment/Plan Cholelithiasis. Borderline gallbladder wall thickening. neg hepatitis panel and HIDA ST evaluation noted TFs per RD ST f/u prn transfusions ppi fu labs The patient was seen and examined at bedside and all new and available data was reviewed in the patients chart. I agree with the above findings, impression and plan. (Patient seen earlier today. Signature stamp does not reflect patient encounter time.). - Khalif Noe MD Subjective Subjective limited Objective Last 24 Hour Vital Signs Date Time Temp Pulse Resp B/P (MAP) Pulse Ox O2 Delivery O2 Flow Rate FiO2 03/19/18 10:08 74 03/19/18 10:05 74 132/89 03/19/18 08:00 98.1 74 20 132/89 (103) 97 03/19/18 05:36 136/62 03/19/18 04:00 96.8 74 136/82 (100) 03/19/18 00:15 137/75 03/19/18 00:00 96.2 66 19 137/75 (95) 96 03/18/18 21:06 70 165/87 03/18/18 21:00 Nasal Cannula 4.0 Nasal Cannula 4.0 Nasal Cannula 4.0 03/18/18 20:00 97.5 70 20 169/85 (113) 03/18/18 17:56 131/77 03/18/18 16:00 97.4 80 18 131/77 (95) 97 03/18/18 12:55 132/84 03/18/18 12:00 98.4 71 20 132/84 (100) 97 Intake and Output 03/18/18 03/19/18 19:00 07:00 Intake Total 1125 ml 1505 ml Output Total 700 ml 700 ml Balance 425 ml 805 ml Free Water 250 ml 340 ml IV Total 550 ml 450 ml Tube Feeding 325 ml 715 ml Output Urine Total 700 ml 700 ml # Bowel Movements 1 Laboratory Tests Test 03/19/18 08:03 White Blood Count 10.5 K/UL (4.8-10.8) Red Blood Count 5.51 M/UL (4.70-6.10) Hemoglobin 14.0 G/DL (14.2-18.0) L Hematocrit 44.7 % (42.0-52.0) Mean Corpuscular Volume 81 FL (80-99) Mean Corpuscular Hemoglobin 25.4 PG (27.0-31.0) L Mean Corpuscular Hemoglobin Concent 31.3 G/DL (32.0-36.0) L Red Cell Distribution Width 17.1 % (11.6-14.8) H Platelet Count 272 K/UL (150-450) Mean Platelet Volume 8.0 FL (6.5-10.1) Neutrophils (%) (Auto) 75.8 % (45.0-75.0) H Lymphocytes (%) (Auto) 16.4 % (20.0-45.0) L Monocytes (%) (Auto) 4.7 % (1.0-10.0) Eosinophils (%) (Auto) 2.2 % (0.0-3.0) Basophils (%) (Auto) 0.9 % (0.0-2.0) Sodium Level 154 MMOL/L (136-145) H Potassium Level 4.0 MMOL/L (3.5-5.1) Chloride Level 120 MMOL/L (98-107) H Carbon Dioxide Level 26 MMOL/L (21-32) Anion Gap 8 mmol/L (5-15) Blood Urea Nitrogen 39 mg/dL (7-18) H Creatinine 1.2 MG/DL (0.55-1.30) Estimat Glomerular Filtration Rate > 60 mL/min (>60) Glucose Level 274 MG/DL (74-106) H Calcium Level 8.1 MG/DL (8.5-10.1) L Height (Feet): 6 Height (Inches): 0.00 Weight (Pounds): 270 General Appearance: no apparent distress, alert, confused Cardiovascular: normal rate Respiratory/Chest: normal breath sounds, no respiratory distress, other - NGT Abdominal Exam: normal bowel sounds, non tender, soft Extremities: non-tender Efraín Hernandez NP Mar 19, 2018 10:59
--- NOTE | 2018-03-19 12:59 | General Surgery Progress Note ---
General Surgery-Progress Note Subjective Additional Comments no acute events. stable. Objective Last 24 Hour Vital Signs Date Time Temp Pulse Resp B/P (MAP) Pulse Ox O2 Delivery O2 Flow Rate FiO2 03/19/18 12:23 132/89 03/19/18 10:08 74 03/19/18 10:05 74 132/89 03/19/18 09:00 Nasal Cannula 4.0 Nasal Cannula 4.0 Nasal Cannula 4.0 03/19/18 08:00 98.1 74 20 132/89 (103) 97 03/19/18 05:36 136/62 03/19/18 04:00 96.8 74 136/82 (100) 03/19/18 00:15 137/75 03/19/18 00:00 96.2 66 19 137/75 (95) 96 03/18/18 21:06 70 165/87 03/18/18 21:00 Nasal Cannula 4.0 Nasal Cannula 4.0 Nasal Cannula 4.0 03/18/18 20:00 97.5 70 20 169/85 (113) 03/18/18 17:56 131/77 03/18/18 16:00 97.4 80 18 131/77 (95) 97 I&O Intake and Output 03/18/18 03/19/18 18:59 06:59 Intake Total 1125 ml 1570 ml Output Total 700 ml 700 ml Balance 425 ml 870 ml Free Water 250 ml 340 ml IV Total 550 ml 450 ml Tube Feeding 325 ml 780 ml Output Urine Total 700 ml 700 ml # Bowel Movements 1 Cardiovascular: RSR Respiratory: clear Abdomen: soft, non-tender, present bowel sounds Extremities: other Laboratory Tests Test 03/19/18 08:03 White Blood Count 10.5 K/UL (4.8-10.8) Red Blood Count 5.51 M/UL (4.70-6.10) Hemoglobin 14.0 G/DL (14.2-18.0) L Hematocrit 44.7 % (42.0-52.0) Mean Corpuscular Volume 81 FL (80-99) Mean Corpuscular Hemoglobin 25.4 PG (27.0-31.0) L Mean Corpuscular Hemoglobin Concent 31.3 G/DL (32.0-36.0) L Red Cell Distribution Width 17.1 % (11.6-14.8) H Platelet Count 272 K/UL (150-450) Mean Platelet Volume 8.0 FL (6.5-10.1) Neutrophils (%) (Auto) 75.8 % (45.0-75.0) H Lymphocytes (%) (Auto) 16.4 % (20.0-45.0) L Monocytes (%) (Auto) 4.7 % (1.0-10.0) Eosinophils (%) (Auto) 2.2 % (0.0-3.0) Basophils (%) (Auto) 0.9 % (0.0-2.0) Sodium Level 154 MMOL/L (136-145) H Potassium Level 4.0 MMOL/L (3.5-5.1) Chloride Level 120 MMOL/L (98-107) H Carbon Dioxide Level 26 MMOL/L (21-32) Anion Gap 8 mmol/L (5-15) Blood Urea Nitrogen 39 mg/dL (7-18) H Creatinine 1.2 MG/DL (0.55-1.30) Estimat Glomerular Filtration Rate > 60 mL/min (>60) Glucose Level 274 MG/DL (74-106) H Calcium Level 8.1 MG/DL (8.5-10.1) L Plan Problems: (1) Abnormal LFTs Assessment & Plan: will obtain hepatitis panel US abdomen - Cholelithiasis; Borderline gallbladder wall thickening, could indicate early acute cholecystitis changes. Consider hepatobiliary nuclear scan if there is high clinical suspicion Negative for dilated ducts will monitor clinically for now HIDA noted hep panel negative hiv neg LFTs noted / improving no surgical intervention necessary at this time. -unlikely cholecystitis. likely contracted GB trend labs (2) Cellulitis Assessment & Plan: chronic bilateral lower extremity wounds / ulcers acute on chronic cellulitis no abscess noted serous drainage multiple wounds that seem traumatic like cuts some small ulcers see wound photos for details -IV Abx as per ID -Keep legs elevated -apply skin protectant, hydrogel, non adherent dressings, and wrap (3) Decubital ulcer Assessment & Plan: patient with two small DTI to sacrum now. precautions being taken. patient being turned q2h. foam dressings and skin protectant has been in place. air mattress. unfortunately given condition and current state despite maximal effort there are unavoidable pressure wounds noted. will continue to maximal care R buttocks DTPI evolving .Wound moist -viable with edges adherent and flat (L) 2cm x (W)2.5cm. Periwound is clean and intact. Reabsorbed blood blister L buttocks. Area is purple with red tinged borders (L)5cm x (W)1cm. Triad paste applied and covered with Sacral foam drsg.Pt positioned on side both heels off- loaded with pillow.Moisture intertrigo notd to abd folds and groin areas .Triad paste applied to affected area. Both heels dry and blanchable and are off- loaded with pillow. Pt is on an air fluidized mattress. All wound preventive protocols and Tx orders maintained. thank you Garth Cornelius Mar 19, 2018 12:59
--- NOTE | 2018-03-19 14:45 | General Progress Note ---
Assessment/Plan Problem List: (1) Diabetes ICD Codes: E11.9 - Type 2 diabetes mellitus without complications SNOMED: 46047497 (2) Cellulitis ICD Codes: L03.90 - Cellulitis, unspecified SNOMED: 559688589 (3) Acute renal failure ICD Codes: N17.9 - Acute kidney failure, unspecified SNOMED: 81944008 (4) Rapid atrial fibrillation ICD Codes: I48.91 - Unspecified atrial fibrillation SNOMED: 528154047 Status: stable, progressing Assessment/Plan cardio f/u abx cbc bmp am gi eval ltach eval Subjective Constitutional: Reports: weakness Allergies: Coded Allergies: No Known Allergies (Unverified , 02/16/18) All Systems: reviewed and negative except above Subjective o2nc ng sleeping Objective Last 24 Hour Vital Signs Date Time Temp Pulse Resp B/P (MAP) Pulse Ox O2 Delivery O2 Flow Rate FiO2 03/19/18 12:23 132/89 03/19/18 12:00 97.8 69 20 143/77 (99) 94 03/19/18 10:08 74 03/19/18 10:05 74 132/89 03/19/18 09:00 Nasal Cannula 4.0 Nasal Cannula 4.0 Nasal Cannula 4.0 03/19/18 08:00 98.1 74 20 132/89 (103) 97 03/19/18 05:36 136/62 03/19/18 04:00 96.8 74 136/82 (100) 03/19/18 00:15 137/75 03/19/18 00:00 96.2 66 19 137/75 (95) 96 03/18/18 21:06 70 165/87 03/18/18 21:00 Nasal Cannula 4.0 Nasal Cannula 4.0 Nasal Cannula 4.0 03/18/18 20:00 97.5 70 20 169/85 (113) 03/18/18 17:56 131/77 03/18/18 16:00 97.4 80 18 131/77 (95) 97 Intake and Output 03/18/18 03/19/18 18:59 06:59 Intake Total 1125 ml 1570 ml Output Total 700 ml 700 ml Balance 425 ml 870 ml Free Water 250 ml 340 ml IV Total 550 ml 450 ml Tube Feeding 325 ml 780 ml Output Urine Total 700 ml 700 ml # Bowel Movements 1 Laboratory Tests 03/19/18 08:03: White Blood Count 10.5, Red Blood Count 5.51, Hemoglobin 14.0L, Hematocrit 44.7 , Mean Corpuscular Volume 81, Mean Corpuscular Hemoglobin 25.4L, Mean Corpuscular Hemoglobin Concent 31.3L, Red Cell Distribution Width 17.1H, Platelet Count 272, Mean Platelet Volume 8.0, Neutrophils (%) (Auto) 75.8H, Lymphocytes (%) (Auto) 16.4L, Monocytes (%) (Auto) 4.7, Eosinophils (%) (Auto) 2.2, Basophils (%) (Auto) 0.9, Sodium Level 154H, Potassium Level 4.0, Chloride Level 120H, Carbon Dioxide Level 26, Anion Gap 8, Blood Urea Nitrogen 39H, Creatinine 1.2, Estimat Glomerular Filtration Rate > 60, Glucose Level 274H, Calcium Level 8.1L Height (Feet): 6 Height (Inches): 0.00 Weight (Pounds): 270 General Appearance: lethargic EENT: normal ENT inspection Neck: normal alignment Cardiovascular: normal peripheral pulses, normal rate, regular rhythm Respiratory/Chest: chest wall non-tender, lungs clear, normal breath sounds Abdomen: normal bowel sounds, non tender, soft Pelvis: normal external exam Extremities: normal inspection Edema: no edema noted Arm (L), no edema noted Arm (R), no edema noted Leg (L), no edema noted Leg (R), no edema noted Pedal (L), no edema noted Pedal (R), no edema noted Generalized Neurologic: motor weakness Skin: normal pigmentation, warm/dry Mick Garcia DO Mar 19, 2018 14:45
[2018-03-19] MEDS ORDERED: LORazepam Inj 2mg/ml 1ml IV PRN (15:15)
--- NOTE | 2018-03-19 16:14 | Diagnostic Imaging Report ---
Indication: Reason For Exam: CVA Technique: sagittal T1 fast spin echo, axial T1 FLAIR, axial T2 FLAIR, axial T2 FS PROPELLER, axial diffusion weighted images. ADC and exponential ADC maps generated Comparison: Findings: Exam is limited. Due to patient body habitus, body coil was utilized rather than the head coil. There is considerable motion. Patient was unable to stay still cysts so GRE sequences were not obtained No abnormal areas of restricted diffusion to suggest acute infarction. No acute hemorrhage or edema. There a small focus of high T2 signal in the posterior left high parasagittal parietal lobe may indicate an old small infarct. No mass effect nor midline shift. Normal size ventricles and extra axial CSF spaces. Visualized orbits and sinuses are unremarkable. 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
--- NOTE | 2018-03-19 19:53 | Nephrology Progress Note ---
Assessment/Plan Assessment 1.hypernatremia 2.ZHAO 3.ckd 4.respiratory failure 5.CHF Plan increase free water via NG start 5dw hold lasix monitoring renal function avoid NSAID replace electrolyte as need it Subjective Subjective in monitor bed confused NAD Objective Objective Last 24 Hour Vital Signs Date Time Temp Pulse Resp B/P (MAP) Pulse Ox O2 Delivery O2 Flow Rate FiO2 03/19/18 17:16 137/79 03/19/18 16:00 98.0 71 20 137/79 (98) 96 03/19/18 12:23 132/89 03/19/18 12:00 97.8 69 20 143/77 (99) 94 03/19/18 10:08 74 03/19/18 10:05 74 132/89 03/19/18 09:00 Nasal Cannula 4.0 Nasal Cannula 4.0 Nasal Cannula 4.0 03/19/18 08:00 98.1 74 20 132/89 (103) 97 03/19/18 05:36 136/62 03/19/18 04:00 96.8 74 136/82 (100) 03/19/18 00:15 137/75 03/19/18 00:00 96.2 66 19 137/75 (95) 96 03/18/18 21:06 70 165/87 03/18/18 21:00 Nasal Cannula 4.0 Nasal Cannula 4.0 Nasal Cannula 4.0 03/18/18 20:00 97.5 70 20 169/85 (113) Intake and Output 03/18/18 03/19/18 18:59 06:59 Intake Total 1125 ml 1570 ml Output Total 700 ml 700 ml Balance 425 ml 870 ml Free Water 250 ml 340 ml IV Total 550 ml 450 ml Tube Feeding 325 ml 780 ml Output Urine Total 700 ml 700 ml # Bowel Movements 1 Laboratory Tests 03/19/18 08:03: White Blood Count 10.5, Red Blood Count 5.51, Hemoglobin 14.0L, Hematocrit 44.7 , Mean Corpuscular Volume 81, Mean Corpuscular Hemoglobin 25.4L, Mean Corpuscular Hemoglobin Concent 31.3L, Red Cell Distribution Width 17.1H, Platelet Count 272, Mean Platelet Volume 8.0, Neutrophils (%) (Auto) 75.8H, Lymphocytes (%) (Auto) 16.4L, Monocytes (%) (Auto) 4.7, Eosinophils (%) (Auto) 2.2, Basophils (%) (Auto) 0.9, Sodium Level 154H, Potassium Level 4.0, Chloride Level 120H, Carbon Dioxide Level 26, Anion Gap 8, Blood Urea Nitrogen 39H, Creatinine 1.2, Estimat Glomerular Filtration Rate > 60, Glucose Level 274H, Calcium Level 8.1L Height (Feet): 6 Height (Inches): 0.00 Weight (Pounds): 270 Objective HEENT: Atraumatic and normocephalic. Anicteric. Pupils are equal, round, and reactive to light and accommodation. Extraocular muscles intact. Altered. NECK: JVP elevated about 5cm. No carotid bruits. Carotid upstrokes 2+ bilaterally. CARDIOVASCULAR: Normal S1, S2. Irregularly irregular rhythm. 2/6 Holosystolic murmur, gallop, or rub. LUNGS: Diminished BS both lungs. ABDOMEN: Soft, nontender, and nondistended. No hepatosplenomegaly. Positive bowel sounds. EXTREMITIES: There is 1+ bilateral lower extremity edema with ulcerations. Maryana Collier MD Mar 19, 2018 19:53
--- NOTE | 2018-03-19 20:17 | Neurology Progress Note ---
Interim History Interim History Interim History Mr. Cornejo says he feels "better." He is awake and more responsive. He can follow a commands better. He however is still minimally communicative. He indicates that he can see but does not count fingers. He can move his hands on command. He cannot move his legs. He is able to protrude his tongue on command. Review of Systems Neuro Review of Systems Unable to obtain. Objective Physical Exam Last Vital Signs Date Time Temp Pulse Resp B/P (MAP) Pulse Ox O2 Delivery O2 Flow Rate FiO2 03/19/18 17:16 137/79 03/19/18 16:00 98.0 71 20 96 03/19/18 09:00 Nasal Cannula 4.0 Nasal Cannula 4.0 Nasal Cannula 4.0 03/18/18 09:21 36 Laboratory Tests Test 03/19/18 08:03 White Blood Count 10.5 K/UL (4.8-10.8) Red Blood Count 5.51 M/UL (4.70-6.10) Hemoglobin 14.0 G/DL (14.2-18.0) L Hematocrit 44.7 % (42.0-52.0) Mean Corpuscular Volume 81 FL (80-99) Mean Corpuscular Hemoglobin 25.4 PG (27.0-31.0) L Mean Corpuscular Hemoglobin Concent 31.3 G/DL (32.0-36.0) L Red Cell Distribution Width 17.1 % (11.6-14.8) H Platelet Count 272 K/UL (150-450) Mean Platelet Volume 8.0 FL (6.5-10.1) Neutrophils (%) (Auto) 75.8 % (45.0-75.0) H Lymphocytes (%) (Auto) 16.4 % (20.0-45.0) L Monocytes (%) (Auto) 4.7 % (1.0-10.0) Eosinophils (%) (Auto) 2.2 % (0.0-3.0) Basophils (%) (Auto) 0.9 % (0.0-2.0) Sodium Level 154 MMOL/L (136-145) H Potassium Level 4.0 MMOL/L (3.5-5.1) Chloride Level 120 MMOL/L (98-107) H Carbon Dioxide Level 26 MMOL/L (21-32) Anion Gap 8 mmol/L (5-15) Blood Urea Nitrogen 39 mg/dL (7-18) H Creatinine 1.2 MG/DL (0.55-1.30) Estimat Glomerular Filtration Rate > 60 mL/min (>60) Glucose Level 274 MG/DL (74-106) H Calcium Level 8.1 MG/DL (8.5-10.1) L Neurologic Exam Objective PHYSICAL EXAMINATION: GENERAL: He is a well developed, well nourished, gentleman, lying in bed. HEAD: Normocephalic and atraumatic. EENT: Examination benign. NECK: No neck rigidity was observed. NEUROLOGIC EXAMINATION: MENTAL STATUS EXAMINATION: He was awake and more responsive. He said he felt "better." He followed a few simple commands more consistently. Further mental status testing was impossible. SPEECH: He was very sparse with his words. LANGUAGE: Could not be tested adequately. CRANIAL NERVE EXAMINATION: II: He did blink to threat but not consistently. He said he could see but could not count fingers. III, IV & : The external ocular movements were present. The pupils were 3 mm in diameter and did not react to light. V & VII: The corneal reflexes were equal. VIII: He did respond to sounds and had no nystagmus. IX & X: The gag reflex was absent. XI: The sternocleidomastoids and trapezii did function. XII: He protruded his tongue on command. MOTOR SYSTEM: The tone was normal in all 4 extremities. Examination of muscle mass revealed no focal wasting. 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 Examination of power was impossible to perform he was able to give a good squeeze with both hands but was unable to move the lower extremities. SENSORY EXAMINATION: He did not respond to deep painful stimuli. REFLEXES: 0 at the biceps, triceps, brachioradialis, knees, and ankles. The right plantar response could not be tested as he had no toes, and the left plantar response was mute. COORDINATION, STANCE & GAIT: Could not be tested. Impression/Recommendations Diagnostic Impression 1. Mr. Dustin Cornejo is a 57-year-old, gentleman, of unknown handedness, who was hospitalized for right lower extremity cellulitis and then in the hospital deteriorated to a point where became quite altered with regards to his mental state on 03/05/2018 and was transferred to the ICU. He was noted to have atrial fibrillation with a rapid ventricular rate and shortness of breath related to hypoxic respiratory failure and then became agitated as a result of which he was given multiple doses of Ativan, Haldol, and morphine. 2. He says he feels "better." He is awake and more responsive. He can follow a commands better. He however is still minimally communicative. He indicates that he can see but does not count fingers. He can move his hands on command. He cannot move his legs. He is able to protrude his tongue on command. 3. On neurological examination, at this time, he is awake. He he follows commands more consistently. He does blink to threat inconsistently. 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 He does not respond to deep pain. He does not demonstrate any lateralizing findings. He has globally absent deep tendon reflexes, and the plantar response on the left side is mute. 4. His latest laboratory data on my initial evaluation revealed his WBC count was elevated to 13,400. He had his last ESR on 03/02/2018 and it was 7. His blood gases revealed that he had a pH of 7.48, pCO2 of 35, and pO2 of 51. His latest chemistry panel revealed that his sodium was elevated to 155. His chloride was elevated to 118. His BUN was elevated to 41. His creatinine was elevated to 1.3. His glucose was elevated to 208. His total bilirubin was elevated at 2.8. His AST, ALT, and alkaline phosphatase were all elevated. His albumin was low at 2.2. His urine toxicology screen on admission revealed that tetrahydrocannabinols were present. His serologies were negative for HIV. 5. Further laboratory tests revealed a normal B12, Folate, TSH but the Hb A1C was elevated at 9.2%. 6. The CT of the brain done on 03/07/18 revealed atrophy and deep white matter disease but no acute pathology. 7. The EEG revealed a moderate toxic/metabolic encephalopathy. 8. The MRI of the brain done on 03/19/18 revealed no acute pathology. 9. The patient's history, neurological examination, laboratory data, EEG and imaging are most compatible with a severe toxic metabolic encephalopathy, which is multifactorial. The recent cardiac arrest has led to an anoxic/ischemic encephalopathy. Acute intracranial pathology of significance has been excluded. 10. His encephalopathy continues to improve. Recommendations 1. Continue present management. 2. Keep the patient off all mind-altering drugs. 3. Correct toxic/metabolic imbalances the best possible. Dawit Marshall M.D., M.S.P.H. Dawit Marshall MD Mar 19, 2018 20:17
[2018-03-20] VITALS: BP 138/81
[2018-03-20] MEDS: NovoLOG Insulin Flexpen SUBQ SCH ×5 (01:32→23:53)
[2018-03-20 04:00] VITALS: BP 150/89
--- NOTE | 2018-03-20 05:31 | Cardiology Progress Note ---
Assessment/Plan Assessment/Plan LATE ENTRY PROGRESS NOTE: DOS: MAR 19, 2017 TIME THE PATIENT SEEN: 13:23pm 1. Atrial fibrillation with controlled ventricular response, continue carvedilol and digoxin. Dig level in am. 2. 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 We can initiate ARB and aldactone in face of normalized renal function. 3. Severe mitral regurgitation, afterload reduction with hydralazine and ARB. 4. Acute respiratory failure, resolved, on NC oxygen. Subjective Subjective Not on the telemetry unit. No cardiac events. Objective Last 24 Hour Vital Signs Date Time Temp Pulse Resp B/P (MAP) Pulse Ox O2 Delivery O2 Flow Rate FiO2 03/20/18 00:00 138/81 03/19/18 22:31 78 147/96 03/19/18 22:00 98.5 18 147/96 (113) 95 03/19/18 20:21 Nasal Cannula 2.0 28 03/19/18 20:21 94 Nasal Cannula 2.0 28 03/19/18 20:00 97.3 71 18 148/81 (103) 100 03/19/18 17:16 137/79 03/19/18 16:00 98.0 71 20 137/79 (98) 96 03/19/18 12:23 132/89 03/19/18 12:00 97.8 69 20 143/77 (99) 94 03/19/18 10:08 74 03/19/18 10:05 74 132/89 03/19/18 09:00 Nasal Cannula 4.0 Nasal Cannula 4.0 Nasal Cannula 4.0 03/19/18 08:00 98.1 74 20 132/89 (103) 97 03/19/18 05:36 136/62 Intake and Output 03/19/18 03/20/18 19:00 07:00 Intake Total 608 ml Balance 608 ml IV Total 608 ml 2D Echo: LVEF 25%, Bi-atrial enlargement, Severe MR, RVSP 24 mmHg, RAP 15 mmHg Laboratory Tests Test 03/19/18 08:03 White Blood Count 10.5 K/UL (4.8-10.8) Red Blood Count 5.51 M/UL (4.70-6.10) Hemoglobin 14.0 G/DL (14.2-18.0) L Hematocrit 44.7 % (42.0-52.0) Mean Corpuscular Volume 81 FL (80-99) Mean Corpuscular Hemoglobin 25.4 PG (27.0-31.0) L Mean Corpuscular Hemoglobin Concent 31.3 G/DL (32.0-36.0) L Red Cell Distribution Width 17.1 % (11.6-14.8) H Platelet Count 272 K/UL (150-450) Mean Platelet Volume 8.0 FL (6.5-10.1) Neutrophils (%) (Auto) 75.8 % (45.0-75.0) H Lymphocytes (%) (Auto) 16.4 % (20.0-45.0) L Monocytes (%) (Auto) 4.7 % (1.0-10.0) Eosinophils (%) (Auto) 2.2 % (0.0-3.0) Basophils (%) (Auto) 0.9 % (0.0-2.0) Sodium Level 154 MMOL/L (136-145) H Potassium Level 4.0 MMOL/L (3.5-5.1) Chloride Level 120 MMOL/L (98-107) H Carbon Dioxide Level 26 MMOL/L (21-32) Anion Gap 8 mmol/L (5-15) Blood Urea Nitrogen 39 mg/dL (7-18) H Creatinine 1.2 MG/DL (0.55-1.30) Estimat Glomerular Filtration Rate > 60 mL/min (>60) Glucose Level 274 MG/DL (74-106) H Calcium Level 8.1 MG/DL (8.5-10.1) L Microbiology Date/Time Source Procedure Growth Status 03/17/18 20:35 Femoral Triple Lumen Catheter Tip Culture - Preliminary NO GROWTH AFTER 24 HOURS Resulted Objective HEENT: Atraumatic and normocephalic. Anicteric. Pupils are equal, round, and reactive to light and accommodation. Extraocular muscles intact. NECK: JVP elevated about 5cm. No carotid bruits. Carotid upstrokes 2+ bilaterally. CARDIOVASCULAR: Normal S1, S2. Irregularly irregular rhythm. 2/6 Holosystolic murmur, gallop, or rub. LUNGS: Diminished BS both lungs. ABDOMEN: Soft, nontender, and nondistended. No hepatosplenomegaly. Positive bowel sounds. EXTREMITIES: There is 1+ bilateral lower extremity edema with ulcerations. Sudarshan Stuart MD Mar 20, 2018 05:31
[2018-03-20] MEDS: HydrALAZINE 25mg tab ORAL SCH ×4 (07:00→17:15)
[2018-03-20 07:17] LABS: EOSINOPHILS % (AUTO) 1.7 % (0.0-3.0); HEMATOCRIT 44.5 % (42.0-52.0); HEMOGLOBIN 14.3 G/DL (14.2-18.0); LYMPHOCYTES % (AUTO) 15.7 % (20.0-45.0); MEAN CORPUSCULAR VOLUME 81 FL (80-99); MONOCYTES % (AUTO) 4.4 % (1.0-10.0); NEUTROPHILS % (AUTO) 77.2 % (45.0-75.0); PLATELET COUNT 276 K/UL (150-450); RED BLOOD COUNT 5.49 M/UL (4.70-6.10); WHITE BLOOD COUNT 10.1 K/UL (4.8-10.8)
[2018-03-20 07:44] LABS: ANION GAP 8 mmol/L (5-15); BLOOD UREA NITROGEN 40 mg/dL (7-18); CALCIUM 8.2 MG/DL (8.5-10.1); CARBON DIOXIDE 26 MMOL/L (21-32); CHLORIDE 118 MMOL/L (98-107); CREATININE 1.3 MG/DL (0.55-1.30); POTASSIUM 3.5 MMOL/L (3.5-5.1); SODIUM 152 MMOL/L (136-145)
[2018-03-20] MEDS: Spironolactone 25mg tab ORAL SCH (08:30)
[2018-03-20] MEDS: Carvedilol 25mg Tab ORAL SCH ×2 (08:30→20:37)
[2018-03-20] MEDS: Pantoprazole Inj IV SCH (08:31)
[2018-03-20] MEDS: Losartan 25mg tab ORAL SCH (08:31)
[2018-03-20 08:38] VITALS: BP 119/76
--- NOTE | 2018-03-20 09:26 | Nephrology Progress Note ---
Assessment/Plan Assessment 1.hypernatremia 2.ZHAO 3.ckd 4.respiratory failure 5.CHF Plan continue current ivf hold lasix monitoring renal function avoid NSAID replace electrolyte as need it Subjective Constitutional: Reports: no symptoms HEENT: Reports: no symptoms Genitourinary: Reports: no symptoms Neurologic/Psychiatric: Reports: no symptoms Subjective in monitor bed on NG tube feeding Objective Objective Last 24 Hour Vital Signs Date Time Temp Pulse Resp B/P (MAP) Pulse Ox O2 Delivery O2 Flow Rate FiO2 03/20/18 08:38 98.1 80 20 119/76 (90) 94 03/20/18 08:31 150/89 03/20/18 08:30 78 150/89 03/20/18 08:20 Nasal Cannula 3.0 Nasal Cannula 3.0 Nasal Cannula 3.0 03/20/18 07:00 150/89 03/20/18 04:00 98.9 24 150/89 (109) 94 03/20/18 00:00 138/81 03/20/18 00:00 98.5 16 138/81 (100) 95 03/19/18 22:31 78 147/96 03/19/18 22:00 98.5 18 147/96 (113) 95 18 21:00 Nasal Cannula 4.0 Nasal Cannula 4.0 Nasal Cannula 4.0 03/19/18 20:21 Nasal Cannula 2.0 28 03/19/18 20:21 94 Nasal Cannula 2.0 28 03/19/18 20:00 97.3 71 18 148/81 (103) 100 18 17:16 137/79 18 16:00 98.0 71 20 137/79 (98) 96 18 12:23 132/89 03/19/18 12:00 97.8 69 20 143/77 (99) 94 03/19/18 10:08 74 03/19/18 10:05 74 132/89 Intake and Output 03/19/18 03/20/18 19:00 07:00 Intake Total 608 ml 65 ml Output Total 550 ml Balance 608 ml -485 ml IV Total 608 ml Tube Feeding 65 ml Output Urine Total 550 ml Laboratory Tests 03/20/18 05:45: White Blood Count 10.1, Red Blood Count 5.49, Hemoglobin 14.3, Hematocrit 44.5, Mean Corpuscular Volume 81, Mean Corpuscular Hemoglobin 26.0L, Mean Corpuscular Hemoglobin Concent 32.1, Red Cell Distribution Width 17.0H, Platelet Count 276, Mean Platelet Volume 8.1, Neutrophils (%) (Auto) 77.2H, Lymphocytes (%) (Auto) 15.7L, Monocytes (%) (Auto) 4.4, Eosinophils (%) (Auto) 1.7, Basophils (%) (Auto ) 1.0, Sodium Level 152H, Potassium Level 3.5, Chloride Level 118H, Carbon Dioxide Level 26, Anion Gap 8, Blood Urea Nitrogen 40H, Creatinine 1.3, Estimat Glomerular Filtration Rate 57.3, Glucose Level 261H, Calcium Level 8.2L, Digoxin Level 1.0 Height (Feet): 6 Height (Inches): 0.00 Weight (Pounds): 270 Objective HEENT: Atraumatic and normocephalic. Anicteric. Pupils are equal, round, and reactive to light and accommodation. Extraocular muscles intact. Altered. NECK: JVP elevated about 5cm. No carotid bruits. Carotid upstrokes 2+ bilaterally. CARDIOVASCULAR: Normal S1, S2. Irregularly irregular rhythm. 2/6 Holosystolic murmur, gallop, or rub. LUNGS: Diminished BS both lungs. ABDOMEN: Soft, nontender, and nondistended. No hepatosplenomegaly. Positive bowel sounds. EXTREMITIES: There is 1+ bilateral lower extremity edema with ulcerations. Maryana Collier MD Mar 20, 2018 09:26
--- NOTE | 2018-03-20 09:47 | Infectious Diseases Prog Note ---
Assessment/Plan Assessment/Plan Assessment/Plan s/p Code blue 03/08 Aspiration PNA, s/p Rx -sp cx ESBL E.coli (S Zosyn, Erta) -03/14 CXR: Persistent right basilar infiltrate and/or pleural effusion. Increasing left infrahilar infiltrate -03/08 cXR: Increasing right upper lung parenchymal opacity may reflect developing infiltrate in the right upper lobe. There is improved aeration of the right lung base -CXR: Improved aeration of the right lung, presumably representing improving atelectasis. Right lower lobe infiltrate. There may also be pleural fluid on the right. Bilateral interstitial disease. Probably on the basis of pulmonary edema. However, considerable central bronchial wall thickening suggests a significant chronic component Fever, SP -03/18 sp R femoral line removed; cath tip cx NTD -03/15 Bcx NTD Leukocytosis, SP B/l LE purulent cellulitis- legs with scratches (self inflicted) ; SP -wound cx MRSA -L foot tibia/fibula xray: No acute process -R foot tibia/fibula xray: No acute bony trauma Acute encephalopathy - improving -Brain MRI: Limited exam, as described. Grossly negative for acute intracranial bleed, mass effect, or infarct. 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 Acute cholecystitis doubtful but not conclusively excluded based on these images and prior ultrasound, which showed a nondistended gallbladder. Patent common bile duct -Abd US: Cholelithiasis. Borderline gallbladder wall thickening, could indicate early acute cholecystitis changes. Consider hepatobiliary nuclear scan if there is high clinical suspicion. Negative for dilated ducts Incidental finding bilateral pleural effusions -acute hep panel, HIV sc neg ZHAO, improving DM2 HTN CHF Schizoaffective disorder Plan: - Continue to monitor off abx -03/16 S/P Ertapenem d # 8 -03/15 SP IV Vancomycin #14 -/ SP ZOsyn #4 -03/06 SP Ceftriaxone #2 -03/03 SP Ancef #2 -03/01 SP Cefepime #2 -f/u Bcx x2 -f/u cx -Monitor CBC/CMP, temperatures -wound care -Sx, GI, Neuro f/u Discussed with RN Subjective Allergies: Coded Allergies: No Known Allergies (Unverified , 02/16/18) Subjective afebrile no leukocytosis Bcx NTD Objective Vital Signs Last 24 Hour Vital Signs Date Time Temp Pulse Resp B/P (MAP) Pulse Ox O2 Delivery O2 Flow Rate FiO2 03/20/18 08:38 98.1 80 20 119/76 (90) 94 03/20/18 08:31 150/89 03/20/18 08:30 78 150/89 03/20/18 08:20 Nasal Cannula 3.0 Nasal Cannula 3.0 Nasal Cannula 3.0 03/20/18 07:00 150/89 03/20/18 04:00 98.9 24 150/89 (109) 94 03/20/18 00:00 138/81 03/20/18 00:00 98.5 16 138/81 (100) 95 03/19/18 22:31 78 147/96 03/19/18 22:00 98.5 18 147/96 (113) 95 03/19/18 21:00 Nasal Cannula 4.0 Nasal Cannula 4.0 Nasal Cannula 4.0 03/19/18 20:21 Nasal Cannula 2.0 28 03/19/18 20:21 94 Nasal Cannula 2.0 28 03/19/18 20:00 97.3 71 18 148/81 (103) 100 03/19/18 17:16 137/79 03/19/18 16:00 98.0 71 20 137/79 (98) 96 03/19/18 12:23 132/89 03/19/18 12:00 97.8 69 20 143/77 (99) 94 03/19/18 10:08 74 03/19/18 10:05 74 132/89 Height (Feet): 6 Height (Inches): 0.00 Weight (Pounds): 270 Objective General Appearance: WD/WN Lines, tubes and drains: peripheral HEENT: normocephalic, atraumatic Neck: non-tender, normal alignment Respiratory/Chest: chest wall non-tender, lungs clear Breasts: no masses Cardiovascular/Chest: normal peripheral pulses Abdomen: normal bowel sounds, non tender Extremities: B/l leg erythema, swelling, with scratches and some minimal drainage Microbiology Date/Time Source Procedure Growth Status 03/17/18 20:35 Femoral Triple Lumen Catheter Tip Culture - Preliminary NO GROWTH AFTER 24 HOURS Resulted Laboratory Tests Test 03/20/18 05:45 White Blood Count 10.1 K/UL (4.8-10.8) Red Blood Count 5.49 M/UL (4.70-6.10) Hemoglobin 14.3 G/DL (14.2-18.0) Hematocrit 44.5 % (42.0-52.0) Mean Corpuscular Volume 81 FL (80-99) Mean Corpuscular Hemoglobin 26.0 PG (27.0-31.0) L Mean Corpuscular Hemoglobin Concent 32.1 G/DL (32.0-36.0) Red Cell Distribution Width 17.0 % (11.6-14.8) H Platelet Count 276 K/UL (150-450) Mean Platelet Volume 8.1 FL (6.5-10.1) Neutrophils (%) (Auto) 77.2 % (45.0-75.0) H Lymphocytes (%) (Auto) 15.7 % (20.0-45.0) L Monocytes (%) (Auto) 4.4 % (1.0-10.0) Eosinophils (%) (Auto) 1.7 % (0.0-3.0) Basophils (%) (Auto) 1.0 % (0.0-2.0) Sodium Level 152 MMOL/L (136-145) H Potassium Level 3.5 MMOL/L (3.5-5.1) Chloride Level 118 MMOL/L (98-107) H Carbon Dioxide Level 26 MMOL/L (21-32) Anion Gap 8 mmol/L (5-15) Blood Urea Nitrogen 40 mg/dL (7-18) H Creatinine 1.3 MG/DL (0.55-1.30) Estimat Glomerular Filtration Rate 57.3 mL/min (>60) Glucose Level 261 MG/DL (74-106) H Calcium Level 8.2 MG/DL (8.5-10.1) L Digoxin Level 1.0 NG/ML (0.5-2.0) Current Medications Medications (Trade) Dose Ordered Sig/Roseline Route PRN Reason Start Time Stop Time Status Last Admin Dose Admin Acetaminophen (Tylenol) 650 mg Q4H PRN ORAL fever (temp>100.5F) 03/17/18 19:00 03/30/18 18:59 Carvedilol (Coreg) 25 mg EVERY 12 HOURS ORAL 03/20/18 09:00 04/19/18 08:59 03/20/18 08:30 Dextrose 1,000 ml @ 50 mls/hr Q20H IV 03/17/18 19:00 04/16/18 12:59 03/19/18 17:16 Dextrose (Dextrose 50%) 25 ml Q30M PRN IV Hypoglycemia 03/17/18 19:00 03/30/18 13:59 Dextrose (Dextrose 50%) 50 ml Q30M PRN IV Hypoglycemia 03/17/18 19:00 03/30/18 13:59 Digoxin (Lanoxin) 0.125 mg DAILY IVP 03/18/18 09:00 04/02/18 14:21 03/19/18 10:08 Haloperidol Lactate (Haldol) 5 mg Q4H PRN IM Agitation 03/17/18 19:00 03/31/18 18:59 03/19/18 13:34 Hydralazine HCl (Apresoline) 25 mg Q6HR ORAL 03/18/18 00:00 04/15/18 00:00 03/20/18 07:00 Insulin Aspart (NovoLOG) EVERY 6 HOURS SUBQ 03/18/18 00:00 04/10/18 11:59 03/20/18 07:04 Lorazepam (Ativan 2mg/ml 1ml) 2 mg Q4H PRN IV For Anxiety 03/19/18 15:15 03/26/18 15:14 03/19/18 15:16 Losartan Potassium (Cozaar) 25 mg DAILY ORAL 03/20/18 09:00 04/19/18 08:59 03/20/18 08:31 Nitroglycerin (Ntg) 0.4 mg Q5M PRN SL Prn Chest Pain 03/17/18 19:00 03/30/18 18:20 Ondansetron HCl (Zofran) 4 mg Q6H PRN IVP Nausea & Vomiting 03/17/18 21:00 1/12/19 20:59 Pantoprazole (Protonix) 40 mg DAILY IV 03/18/18 09:00 04/08/18 08:59 03/20/18 08:31 Polyethylene Glycol (Miralax) 17 gm DAILYPRN PRN ORAL Constipation 03/17/18 21:00 04/14/18 20:59 Spironolactone (Aldactone) 12.5 mg DAILY ORAL 03/20/18 09:00 04/19/18 08:59 03/20/18 08:30 Susan Dennis M.D. Mar 20, 2018 09:47
[2018-03-20 11:32] VITALS: BP 130/83
[2018-03-20] MEDS: Digoxin 0.5mg/2ml Inj IVP SCH (11:40)
--- NOTE | 2018-03-20 12:45 | General Surgery Progress Note ---
General Surgery-Progress Note Subjective Symptoms: improved Additional Comments doing better slowly Objective Last 24 Hour Vital Signs Date Time Temp Pulse Resp B/P (MAP) Pulse Ox O2 Delivery O2 Flow Rate FiO2 03/20/18 11:41 130/83 03/20/18 11:40 69 03/20/18 11:32 98.2 69 20 130/83 (99) 97 03/20/18 08:38 98.1 80 20 119/76 (90) 94 03/20/18 08:31 150/89 03/20/18 08:30 78 150/89 03/20/18 08:20 Nasal Cannula 3.0 Nasal Cannula 3.0 Nasal Cannula 3.0 03/20/18 07:00 150/89 03/20/18 04:00 98.9 24 150/89 (109) 94 03/20/18 00:00 138/81 03/20/18 00:00 98.5 16 138/81 (100) 95 03/19/18 22:31 78 147/96 03/19/18 22:00 98.5 18 147/96 (113) 95 03/19/18 21:00 Nasal Cannula 4.0 Nasal Cannula 4.0 Nasal Cannula 4.0 03/19/18 20:21 Nasal Cannula 2.0 28 03/19/18 20:21 94 Nasal Cannula 2.0 28 03/19/18 20:00 97.3 71 18 148/81 (103) 100 18 17:16 137/79 03/19/18 16:00 98.0 71 20 137/79 (98) 96 I&O Intake and Output 03/19/18 03/20/18 19:00 07:00 Intake Total 608 ml 130 ml Output Total 550 ml Balance 608 ml -420 ml IV Total 608 ml Tube Feeding 130 ml Output Urine Total 550 ml Dressing: other Wound: clean Drains: other Cardiovascular: RSR Respiratory: clear Abdomen: soft, flat, present bowel sounds Extremities: other Laboratory Tests Test 03/20/18 05:45 White Blood Count 10.1 K/UL (4.8-10.8) Red Blood Count 5.49 M/UL (4.70-6.10) Hemoglobin 14.3 G/DL (14.2-18.0) Hematocrit 44.5 % (42.0-52.0) Mean Corpuscular Volume 81 FL (80-99) Mean Corpuscular Hemoglobin 26.0 PG (27.0-31.0) L Mean Corpuscular Hemoglobin Concent 32.1 G/DL (32.0-36.0) Red Cell Distribution Width 17.0 % (11.6-14.8) H Platelet Count 276 K/UL (150-450) Mean Platelet Volume 8.1 FL (6.5-10.1) Neutrophils (%) (Auto) 77.2 % (45.0-75.0) H Lymphocytes (%) (Auto) 15.7 % (20.0-45.0) L Monocytes (%) (Auto) 4.4 % (1.0-10.0) Eosinophils (%) (Auto) 1.7 % (0.0-3.0) Basophils (%) (Auto) 1.0 % (0.0-2.0) Sodium Level 152 MMOL/L (136-145) H Potassium Level 3.5 MMOL/L (3.5-5.1) Chloride Level 118 MMOL/L (98-107) H Carbon Dioxide Level 26 MMOL/L (21-32) Anion Gap 8 mmol/L (5-15) Blood Urea Nitrogen 40 mg/dL (7-18) H Creatinine 1.3 MG/DL (0.55-1.30) Estimat Glomerular Filtration Rate 57.3 mL/min (>60) Glucose Level 261 MG/DL (74-106) H Calcium Level 8.2 MG/DL (8.5-10.1) L Digoxin Level 1.0 NG/ML (0.5-2.0) Plan Problems: (1) Abnormal LFTs Assessment & Plan: will obtain hepatitis panel US abdomen - Cholelithiasis; Borderline gallbladder wall thickening, could indicate early acute cholecystitis changes. Consider hepatobiliary nuclear scan if there is high clinical suspicion Negative for dilated ducts will monitor clinically for now HIDA noted hep panel negative hiv neg LFTs noted / improving no surgical intervention necessary at this time. -unlikely cholecystitis. likely contracted GB trend labs (2) Cellulitis Assessment & Plan: chronic bilateral lower extremity wounds / ulcers acute on chronic cellulitis no abscess noted serous drainage multiple wounds that seem traumatic like cuts some small ulcers see wound photos for details -IV Abx as per ID -Keep legs elevated -apply skin protectant, hydrogel, non adherent dressings, and wrap (3) Decubital ulcer Assessment & Plan: patient with two small DTI to sacrum now. precautions being taken. patient being turned q2h. foam dressings and skin protectant has been in place. air mattress. unfortunately given condition and current state despite maximal effort there are unavoidable pressure wounds noted. will continue to maximal care R buttocks DTPI evolving .Wound moist -viable with edges adherent and flat (L) 2cm x (W)2.5cm. Periwound is clean and intact. Reabsorbed blood blister L buttocks. Area is purple with red tinged borders (L)5cm x (W)1cm. Triad paste applied and covered with Sacral foam drsg.Pt positioned on side both heels off- loaded with pillow.Moisture intertrigo notd to abd folds and groin areas .Triad paste applied to affected area. Both heels dry and blanchable and are off- loaded with pillow. Pt is on an air fluidized mattress. All wound preventive protocols and Tx orders maintained. wound evaluated and improving fortunately thank you Garth Cornelius Mar 20, 2018 12:45
--- NOTE | 2018-03-20 13:16 | Pulmonology Progress Note ---
Assessment/Plan Problems: (1) Acute encephalopathy (2) Diastolic CHF, chronic (3) Rapid atrial fibrillation (4) Diabetes (5) Cellulitis Assessment/Plan awake, comfortable failed swallow study might need a PEG check electrolytes all notes reviewed dvt prophylaxis Subjective ROS Limited/Unobtainable: No Constitutional: Reports: no symptoms HEENT: Repors: no symptoms Respiratory: Reports: no symptoms Allergies: Coded Allergies: No Known Allergies (Unverified , 02/16/18) Objective Last 24 Hour Vital Signs Date Time Temp Pulse Resp B/P (MAP) Pulse Ox O2 Delivery O2 Flow Rate FiO2 03/20/18 11:41 130/83 03/20/18 11:40 69 03/20/18 11:32 98.2 69 20 130/83 (99) 97 03/20/18 08:38 98.1 80 20 119/76 (90) 94 03/20/18 08:31 150/89 03/20/18 08:30 78 150/89 03/20/18 08:20 Nasal Cannula 3.0 Nasal Cannula 3.0 Nasal Cannula 3.0 03/20/18 07:00 150/89 03/20/18 04:00 98.9 24 150/89 (109) 94 03/20/18 00:00 138/81 03/20/18 00:00 98.5 16 138/81 (100) 95 03/19/18 22:31 78 147/96 03/19/18 22:00 98.5 18 147/96 (113) 95 03/19/18 21:00 Nasal Cannula 4.0 Nasal Cannula 4.0 Nasal Cannula 4.0 03/19/18 20:21 Nasal Cannula 2.0 28 03/19/18 20:21 94 Nasal Cannula 2.0 28 03/19/18 20:00 97.3 71 18 148/81 (103) 100 18 17:16 137/79 18 16:00 98.0 71 20 137/79 (98) 96 Intake and Output 03/19/18 03/20/18 19:00 07:00 Intake Total 608 ml 130 ml Output Total 550 ml Balance 608 ml -420 ml IV Total 608 ml Tube Feeding 130 ml Output Urine Total 550 ml General Appearance: WD/WN HEENT: normocephalic, atraumatic Respiratory/Chest: chest wall non-tender, lungs clear Cardiovascular: normal peripheral pulses, normal rate Abdomen: normal bowel sounds, soft, non tender Genitourinary: normal external genitalia Skin: no rash Microbiology Date/Time Source Procedure Growth Status 03/17/18 20:35 Femoral Triple Lumen Catheter Tip Culture - Preliminary NO GROWTH AFTER 48 HOURS Resulted Laboratory Tests 03/20/18 05:45: White Blood Count 10.1, Red Blood Count 5.49, Hemoglobin 14.3, Hematocrit 44.5, Mean Corpuscular Volume 81, Mean Corpuscular Hemoglobin 26.0L, Mean Corpuscular Hemoglobin Concent 32.1, Red Cell Distribution Width 17.0H, Platelet Count 276, Mean Platelet Volume 8.1, Neutrophils (%) (Auto) 77.2H, Lymphocytes (%) (Auto) 15.7L, Monocytes (%) (Auto) 4.4, Eosinophils (%) (Auto) 1.7, Basophils (%) (Auto ) 1.0, Sodium Level 152H, Potassium Level 3.5, Chloride Level 118H, Carbon Dioxide Level 26, Anion Gap 8, Blood Urea Nitrogen 40H, Creatinine 1.3, Estimat Glomerular Filtration Rate 57.3, Glucose Level 261H, Calcium Level 8.2L, Digoxin Level 1.0 Current Medications Medications (Trade) Dose Ordered Sig/Roseline Route PRN Reason Start Time Stop Time Status Last Admin Dose Admin Acetaminophen (Tylenol) 650 mg Q4H PRN ORAL fever (temp>100.5F) 03/17/18 19:00 03/30/18 18:59 Carvedilol (Coreg) 25 mg EVERY 12 HOURS ORAL 03/20/18 09:00 04/19/18 08:59 03/20/18 08:30 Dextrose 1,000 ml @ 50 mls/hr Q20H IV 03/17/18 19:00 04/16/18 12:59 03/19/18 17:16 Dextrose (Dextrose 50%) 25 ml Q30M PRN IV Hypoglycemia 03/17/18 19:00 03/30/18 13:59 Dextrose (Dextrose 50%) 50 ml Q30M PRN IV Hypoglycemia 03/17/18 19:00 03/30/18 13:59 Digoxin (Lanoxin) 0.125 mg DAILY IVP 03/18/18 09:00 04/02/18 14:21 03/20/18 11:40 Haloperidol Lactate (Haldol) 5 mg Q4H PRN IM Agitation 03/17/18 19:00 03/31/18 18:59 03/19/18 13:34 Hydralazine HCl (Apresoline) 25 mg Q6HR ORAL 03/18/18 00:00 04/15/18 00:00 03/20/18 11:41 Insulin Aspart (NovoLOG) EVERY 6 HOURS SUBQ 03/18/18 00:00 04/10/18 11:59 03/20/18 11:30 Lorazepam (Ativan 2mg/ml 1ml) 2 mg Q4H PRN IV For Anxiety 03/19/18 15:15 03/26/18 15:14 03/19/18 15:16 Losartan Potassium (Cozaar) 25 mg DAILY ORAL 03/20/18 09:00 04/19/18 08:59 03/20/18 08:31 Nitroglycerin (Ntg) 0.4 mg Q5M PRN SL Prn Chest Pain 03/17/18 19:00 03/30/18 18:20 Ondansetron HCl (Zofran) 4 mg Q6H PRN IVP Nausea & Vomiting 03/17/18 21:00 04/14/18 20:59 Pantoprazole (Protonix) 40 mg DAILY IV 03/18/18 09:00 04/08/18 08:59 03/20/18 08:31 Polyethylene Glycol (Miralax) 17 gm DAILYPRN PRN ORAL Constipation 03/17/18 21:00 04/14/18 20:59 Spironolactone (Aldactone) 12.5 mg DAILY ORAL 03/20/18 09:00 04/19/18 08:59 03/20/18 08:30 Sunita Sahni MD Mar 20, 2018 13:16
--- NOTE | 2018-03-20 13:52 | General Progress Note ---
Assessment/Plan Problem List: (1) Diabetes ICD Codes: E11.9 - Type 2 diabetes mellitus without complications SNOMED: 51960496 (2) Cellulitis ICD Codes: L03.90 - Cellulitis, unspecified SNOMED: 923688555 (3) Acute renal failure ICD Codes: N17.9 - Acute kidney failure, unspecified SNOMED: 00880904 (4) Rapid atrial fibrillation ICD Codes: I48.91 - Unspecified atrial fibrillation SNOMED: 128947736 Status: unchanged Assessment/Plan cardio f/u abx cbc bmp am gi eval ltach eval pending g tube Subjective Constitutional: Reports: weakness Allergies: Coded Allergies: No Known Allergies (Unverified , 02/16/18) All Systems: reviewed and negative except above Subjective o2nc ng sleeping Objective Last 24 Hour Vital Signs Date Time Temp Pulse Resp B/P (MAP) Pulse Ox O2 Delivery O2 Flow Rate FiO2 03/20/18 11:41 130/83 03/20/18 11:40 69 03/20/18 11:32 98.2 69 20 130/83 (99) 97 03/20/18 08:38 98.1 80 20 119/76 (90) 94 03/20/18 08:31 150/89 03/20/18 08:30 78 150/89 03/20/18 08:20 Nasal Cannula 3.0 Nasal Cannula 3.0 Nasal Cannula 3.0 03/20/18 07:00 150/89 03/20/18 04:00 98.9 24 150/89 (109) 94 03/20/18 00:00 138/81 03/20/18 00:00 98.5 16 138/81 (100) 95 03/19/18 22:31 78 147/96 03/19/18 22:00 98.5 18 147/96 (113) 95 03/19/18 21:00 Nasal Cannula 4.0 Nasal Cannula 4.0 Nasal Cannula 4.0 03/19/18 20:21 Nasal Cannula 2.0 28 03/19/18 20:21 94 Nasal Cannula 2.0 28 03/19/18 20:00 97.3 71 18 148/81 (103) 100 18 17:16 137/79 03/19/18 16:00 98.0 71 20 137/79 (98) 96 Intake and Output 03/19/18 03/20/18 19:00 07:00 Intake Total 608 ml 130 ml Output Total 550 ml Balance 608 ml -420 ml IV Total 608 ml Tube Feeding 130 ml Output Urine Total 550 ml Laboratory Tests 03/20/18 05:45: White Blood Count 10.1, Red Blood Count 5.49, Hemoglobin 14.3, Hematocrit 44.5, Mean Corpuscular Volume 81, Mean Corpuscular Hemoglobin 26.0L, Mean Corpuscular Hemoglobin Concent 32.1, Red Cell Distribution Width 17.0H, Platelet Count 276, Mean Platelet Volume 8.1, Neutrophils (%) (Auto) 77.2H, Lymphocytes (%) (Auto) 15.7L, Monocytes (%) (Auto) 4.4, Eosinophils (%) (Auto) 1.7, Basophils (%) (Auto ) 1.0, Sodium Level 152H, Potassium Level 3.5, Chloride Level 118H, Carbon Dioxide Level 26, Anion Gap 8, Blood Urea Nitrogen 40H, Creatinine 1.3, Estimat Glomerular Filtration Rate 57.3, Glucose Level 261H, Calcium Level 8.2L, Digoxin Level 1.0 Height (Feet): 6 Height (Inches): 0.00 Weight (Pounds): 270 General Appearance: lethargic EENT: normal ENT inspection Neck: normal alignment Cardiovascular: normal peripheral pulses, normal rate, regular rhythm Respiratory/Chest: chest wall non-tender, lungs clear, normal breath sounds Abdomen: normal bowel sounds, non tender, soft Extremities: normal inspection Edema: no edema noted Arm (L), no edema noted Arm (R), no edema noted Leg (L), no edema noted Leg (R), no edema noted Pedal (L), no edema noted Pedal (R), no edema noted Generalized Neurologic: motor weakness Skin: normal pigmentation, warm/dry Mick Garcia DO Mar 20, 2018 13:52
--- NOTE | 2018-03-20 15:19 | GI Progress Note ---
Assessment/Plan Problems: (1) Dysphagia ICD Codes: R13.10 - Dysphagia, unspecified SNOMED: 44627217, 707429090 (2) Drug abuse ICD Codes: F19.10 - Other psychoactive substance abuse, uncomplicated SNOMED: 05443720 (3) Encounter for PEG (percutaneous endoscopic gastrostomy) ICD Codes: Z43.1 - Encounter for attention to gastrostomy SNOMED: 788483207, 617214269 (4) Diastolic CHF, chronic ICD Codes: I50.32 - Chronic diastolic (congestive) heart failure SNOMED: 78474581, 006266070 (5) Abnormal LFTs ICD Codes: R94.5 - Abnormal results of liver function studies SNOMED: 324723967 Status: not improved, unchanged Status Narrative Discussed with Dr. Noe Assessment/Plan Cholelithiasis. Borderline gallbladder wall thickening. neg hepatitis panel and HIDA ST evaluation noted >> unable to do video swallow, the patient unable to follow commands We will schedule patient for PEG tomorrow -TFs per RD , n.p.o. at midnight -Hold all blood thinners tonight prn transfusions ppi fu labs The patient was seen and examined at bedside and all new and available data was reviewed in the patients chart. I agree with the above findings, impression and plan. (Patient seen earlier today. Signature stamp does not reflect patient encounter time.). - Khalif Noe MD Subjective Subjective limited Objective Last 24 Hour Vital Signs Date Time Temp Pulse Resp B/P (MAP) Pulse Ox O2 Delivery O2 Flow Rate FiO2 03/20/18 11:41 130/83 03/20/18 11:40 69 03/20/18 11:32 98.2 69 20 130/83 (99) 97 03/20/18 08:38 98.1 80 20 119/76 (90) 94 03/20/18 08:31 150/89 03/20/18 08:30 78 150/89 03/20/18 08:20 Nasal Cannula 3.0 Nasal Cannula 3.0 Nasal Cannula 3.0 03/20/18 07:00 150/89 03/20/18 04:00 98.9 24 150/89 (109) 94 03/20/18 00:00 138/81 03/20/18 00:00 98.5 16 138/81 (100) 95 03/19/18 22:31 78 147/96 03/19/18 22:00 98.5 18 147/96 (113) 95 03/19/18 21:00 Nasal Cannula 4.0 Nasal Cannula 4.0 Nasal Cannula 4.0 03/19/18 20:21 Nasal Cannula 2.0 28 03/19/18 20:21 94 Nasal Cannula 2.0 28 03/19/18 20:00 97.3 71 18 148/81 (103) 100 03/19/18 17:16 137/79 03/19/18 16:00 98.0 71 20 137/79 (98) 96 Intake and Output 03/19/18 03/20/18 19:00 07:00 Intake Total 608 ml 130 ml Output Total 550 ml Balance 608 ml -420 ml IV Total 608 ml Tube Feeding 130 ml Output Urine Total 550 ml Laboratory Tests Test 03/20/18 05:45 White Blood Count 10.1 K/UL (4.8-10.8) Red Blood Count 5.49 M/UL (4.70-6.10) Hemoglobin 14.3 G/DL (14.2-18.0) Hematocrit 44.5 % (42.0-52.0) Mean Corpuscular Volume 81 FL (80-99) Mean Corpuscular Hemoglobin 26.0 PG (27.0-31.0) L Mean Corpuscular Hemoglobin Concent 32.1 G/DL (32.0-36.0) Red Cell Distribution Width 17.0 % (11.6-14.8) H Platelet Count 276 K/UL (150-450) Mean Platelet Volume 8.1 FL (6.5-10.1) Neutrophils (%) (Auto) 77.2 % (45.0-75.0) H Lymphocytes (%) (Auto) 15.7 % (20.0-45.0) L Monocytes (%) (Auto) 4.4 % (1.0-10.0) Eosinophils (%) (Auto) 1.7 % (0.0-3.0) Basophils (%) (Auto) 1.0 % (0.0-2.0) Sodium Level 152 MMOL/L (136-145) H Potassium Level 3.5 MMOL/L (3.5-5.1) Chloride Level 118 MMOL/L (98-107) H Carbon Dioxide Level 26 MMOL/L (21-32) Anion Gap 8 mmol/L (5-15) Blood Urea Nitrogen 40 mg/dL (7-18) H Creatinine 1.3 MG/DL (0.55-1.30) Estimat Glomerular Filtration Rate 57.3 mL/min (>60) Glucose Level 261 MG/DL (74-106) H Calcium Level 8.2 MG/DL (8.5-10.1) L Digoxin Level 1.0 NG/ML (0.5-2.0) Height (Feet): 6 Height (Inches): 0.00 Weight (Pounds): 270 General Appearance: confused Cardiovascular: normal rate Respiratory/Chest: normal breath sounds, no respiratory distress Abdominal Exam: normal bowel sounds, non tender, soft, other - NGT Efraín Hernandez NP Mar 20, 2018 15:19
[2018-03-20 16:13] VITALS: BP 142/85
[2018-03-20 20:00] VITALS: BP 132/89
--- NOTE | 2018-03-20 22:40 | Neurology Progress Note ---
Interim History Interim History Interim History Mr. Cornejo says he feels "better." He is awake and more responsive. He can follow commands better. He however is still minimally communicative. He indicates that he can see but does not count fingers. He can move his hands and feet on command. He is able to protrude his tongue on command. Review of Systems Neuro Review of Systems Unable to obtain. Objective Physical Exam Last Vital Signs Date Time Temp Pulse Resp B/P (MAP) Pulse Ox O2 Delivery O2 Flow Rate FiO2 03/20/18 20:00 98.9 75 19 132/89 (103) 96 03/20/18 08:20 Nasal Cannula 3.0 Nasal Cannula 3.0 Nasal Cannula 3.0 03/19/18 20:21 28 Laboratory Tests Test 03/20/18 05:45 White Blood Count 10.1 K/UL (4.8-10.8) Red Blood Count 5.49 M/UL (4.70-6.10) Hemoglobin 14.3 G/DL (14.2-18.0) Hematocrit 44.5 % (42.0-52.0) Mean Corpuscular Volume 81 FL (80-99) Mean Corpuscular Hemoglobin 26.0 PG (27.0-31.0) L Mean Corpuscular Hemoglobin Concent 32.1 G/DL (32.0-36.0) Red Cell Distribution Width 17.0 % (11.6-14.8) H Platelet Count 276 K/UL (150-450) Mean Platelet Volume 8.1 FL (6.5-10.1) Neutrophils (%) (Auto) 77.2 % (45.0-75.0) H Lymphocytes (%) (Auto) 15.7 % (20.0-45.0) L Monocytes (%) (Auto) 4.4 % (1.0-10.0) Eosinophils (%) (Auto) 1.7 % (0.0-3.0) Basophils (%) (Auto) 1.0 % (0.0-2.0) Sodium Level 152 MMOL/L (136-145) H Potassium Level 3.5 MMOL/L (3.5-5.1) Chloride Level 118 MMOL/L (98-107) H Carbon Dioxide Level 26 MMOL/L (21-32) Anion Gap 8 mmol/L (5-15) Blood Urea Nitrogen 40 mg/dL (7-18) H Creatinine 1.3 MG/DL (0.55-1.30) Estimat Glomerular Filtration Rate 57.3 mL/min (>60) Glucose Level 261 MG/DL (74-106) H Calcium Level 8.2 MG/DL (8.5-10.1) L Digoxin Level 1.0 NG/ML (0.5-2.0) Neurologic Exam Objective PHYSICAL EXAMINATION: GENERAL: He is a well developed, well nourished, gentleman, lying in bed. HEAD: Normocephalic and atraumatic. EENT: Examination benign. NECK: No neck rigidity was observed. NEUROLOGIC EXAMINATION: MENTAL STATUS EXAMINATION: He was awake and more responsive. He said he felt "better." He followed simple commands more consistently. Further mental status testing was impossible. SPEECH: He was very sparse with his words. LANGUAGE: Could not be tested adequately. CRANIAL NERVE EXAMINATION: II: He did blink to threat but not consistently. He said he could see but could not count fingers. III, IV & : The external ocular movements were present. The pupils were 3 mm in diameter and did not react to light. V & VII: The corneal reflexes were equal. VIII: He did respond to sounds and had no nystagmus. IX & X: The gag reflex was absent. XI: The sternocleidomastoids and trapezii did function. XII: He protruded his tongue on command. MOTOR SYSTEM: The tone was normal in all 4 extremities. Examination of muscle mass revealed no focal wasting. 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 Examination of power was impossible to perform he was able to give a good squeeze with both hands but was unable to move the lower extremities. SENSORY EXAMINATION: He did not respond to deep painful stimuli. REFLEXES: 0 at the biceps, triceps, brachioradialis, knees, and ankles. The right plantar response could not be tested as he had no toes, and the left plantar response was mute. COORDINATION, STANCE & GAIT: Could not be tested. Impression/Recommendations Diagnostic Impression 1. Mr. Dustin Cornejo is a 57-year-old, gentleman, of unknown handedness, who was hospitalized for right lower extremity cellulitis and then in the hospital deteriorated to a point where became quite altered with regards to his mental state on 03/05/2018 and was transferred to the ICU. He was noted to have atrial fibrillation with a rapid ventricular rate and shortness of breath related to hypoxic respiratory failure and then became agitated as a result of which he was given multiple doses of Ativan, Haldol, and morphine. 2. He says he feels "better." He is awake and more responsive. He can follow a commands better. He however is still minimally communicative. He indicates that he can see but does not count fingers. He can move his hands on command. He is also able to move his feet. He is able to protrude his tongue on command. 3. On neurological examination, at this time, he is awake. He he follows commands more consistently. He does blink to threat inconsistently. He is able to give me good hand conservation worker and is able to move his feet. He does not respond to deep pain. He does not demonstrate any lateralizing findings. He has globally absent deep tendon reflexes, and the plantar response on the left side is mute. 4. His latest laboratory data on my initial evaluation revealed his WBC count was elevated to 13,400. He had his last ESR on 03/02/2018 and it was 7. His blood gases revealed that he had a pH of 7.48, pCO2 of 35, and pO2 of 51. His latest chemistry panel revealed that his sodium was elevated to 155. His chloride was elevated to 118. His BUN was elevated to 41. His creatinine was elevated to 1.3. His glucose was elevated to 208. His total bilirubin was elevated at 2.8. His AST, ALT, and alkaline phosphatase were all elevated. His albumin was low at 2.2. His urine toxicology screen on admission revealed that tetrahydrocannabinols were present. His serologies were negative for HIV. 5. Further laboratory tests revealed a normal B12, Folate, TSH but the Hb A1C was elevated at 9.2%. 6. The CT of the brain done on 03/07/18 revealed atrophy and deep white matter disease but no acute pathology. 7. The EEG revealed a moderate toxic/metabolic encephalopathy. 8. The MRI of the brain done on 03/19/18 revealed no acute pathology. 9. The patient's history, neurological examination, laboratory data, EEG and imaging are most compatible with a severe toxic metabolic encephalopathy, which is multifactorial. The recent cardiac arrest has led to an anoxic/ischemic encephalopathy. Acute intracranial pathology of significance has been excluded. 10. His encephalopathy continues to improve. Recommendations 1. Continue present management. 2. Keep the patient off all mind-altering drugs. 3. Correct toxic/metabolic imbalances the best possible. Dawit Marshall M.D., M.S.P.H. Dawit Marshall MD Mar 20, 2018 22:40
[2018-03-21] VITALS (10 sets, daily range): BP systolic 91–142; BP diastolic 50–83
[2018-03-21] MEDS: HydrALAZINE 25mg tab ORAL SCH ×5 (05:08→23:50)
[2018-03-21] MEDS: NovoLOG Insulin Flexpen SUBQ SCH ×4 (05:13→23:52)
[2018-03-21 07:57] LABS: BASOPHILS % (AUTO) 0.8 % (0.0-2.0); HEMATOCRIT 42.8 % (42.0-52.0); HEMOGLOBIN 13.7 G/DL (14.2-18.0); LYMPHOCYTES % (AUTO) 19.8 % (20.0-45.0); MEAN CORPUSCULAR VOLUME 83 FL (80-99); MONOCYTES % (AUTO) 2.9 % (1.0-10.0); NEUTROPHILS % (AUTO) 74.6 % (45.0-75.0); PLATELET COUNT 253 K/UL (150-450); RED BLOOD COUNT 5.14 M/UL (4.70-6.10); WHITE BLOOD COUNT 9.7 K/UL (4.8-10.8)
[2018-03-21 08:10] LABS: INR 1.1 (0.9-1.1)
[2018-03-21 08:15] LABS: ANION GAP 7 mmol/L (5-15); BLOOD UREA NITROGEN 33 mg/dL (7-18); CALCIUM 8.1 MG/DL (8.5-10.1); CARBON DIOXIDE 28 MMOL/L (21-32); CHLORIDE 116 MMOL/L (98-107); CREATININE 1.2 MG/DL (0.55-1.30); POTASSIUM 3.4 MMOL/L (3.5-5.1); SODIUM 150 MMOL/L (136-145)
[2018-03-21] MEDS: Digoxin 0.5mg/2ml Inj IVP SCH (10:37)
[2018-03-21] MEDS: Pantoprazole Inj IV SCH (10:37)
[2018-03-21] MEDS: Losartan 25mg tab ORAL SCH (10:38)
[2018-03-21] MEDS: Carvedilol 25mg Tab ORAL SCH ×2 (10:38→20:39)
[2018-03-21] MEDS: Spironolactone 25mg tab ORAL SCH (10:38)
--- NOTE | 2018-03-21 11:29 | Infectious Diseases Prog Note ---
Assessment/Plan Assessment/Plan Assessment/Plan s/p Code blue 03/08 Aspiration PNA, s/p Rx -sp cx ESBL E.coli (S Zosyn, Erta) -03/14 CXR: Persistent right basilar infiltrate and/or pleural effusion. Increasing left infrahilar infiltrate -03/08 cXR: Increasing right upper lung parenchymal opacity may reflect developing infiltrate in the right upper lobe. There is improved aeration of the right lung base -CXR: Improved aeration of the right lung, presumably representing improving atelectasis. Right lower lobe infiltrate. There may also be pleural fluid on the right. Bilateral interstitial disease. Probably on the basis of pulmonary edema. However, considerable central bronchial wall thickening suggests a significant chronic component Fever, SP -03/18 sp R femoral line removed; cath tip cx NTD -03/15 Bcx NTD Leukocytosis, SP B/l LE purulent cellulitis- legs with scratches (self inflicted) ; SP -wound cx MRSA -L foot tibia/fibula xray: No acute process -R foot tibia/fibula xray: No acute bony trauma Acute encephalopathy - improving -Brain MRI: Limited exam, as described. Grossly negative for acute intracranial bleed, mass effect, or infarct. 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 Acute cholecystitis doubtful but not conclusively excluded based on these images and prior ultrasound, which showed a nondistended gallbladder. Patent common bile duct -Abd US: Cholelithiasis. Borderline gallbladder wall thickening, could indicate early acute cholecystitis changes. Consider hepatobiliary nuclear scan if there is high clinical suspicion. Negative for dilated ducts Incidental finding bilateral pleural effusions -acute hep panel, HIV sc neg ZHAO, improving DM2 HTN CHF Schizoaffective disorder Plan: - Continue to monitor off abx -03/16 S/P Ertapenem d # 8 -03/15 SP IV Vancomycin #14 -/ SP ZOsyn #4 -03/06 SP Ceftriaxone #2 -03/03 SP Ancef #2 -03/01 SP Cefepime #2 -f/u Bcx x2 -f/u cx -Monitor CBC/CMP, temperatures -wound care -Sx, GI, Neuro f/u Discussed with RN Subjective Allergies: Coded Allergies: No Known Allergies (Unverified , 02/16/18) Subjective afebrile no leukocytosis Bcx NTD Objective Vital Signs Last 24 Hour Vital Signs Date Time Temp Pulse Resp B/P (MAP) Pulse Ox O2 Delivery O2 Flow Rate FiO2 03/21/18 10:38 67 127/79 03/21/18 10:38 127/79 03/21/18 10:37 67 03/21/18 08:00 97.3 67 20 127/79 (95) 95 03/21/18 05:08 125/79 03/21/18 04:00 97.1 65 18 125/79 (94) 100 03/21/18 00:00 97.4 64 19 142/79 (100) 98 03/21/18 00:00 142/79 03/20/18 21:00 Nasal Cannula 3.0 Nasal Cannula 3.0 Nasal Cannula 3.0 03/20/18 20:00 98.9 75 19 132/89 (103) 96 03/20/18 17:15 142/85 03/20/18 16:13 98.0 72 20 142/85 (104) 96 03/20/18 11:41 130/83 03/20/18 11:40 69 03/20/18 11:32 98.2 69 20 130/83 (99) 97 Height (Feet): 6 Height (Inches): 0.00 Weight (Pounds): 252 Objective General Appearance: WD/WN Lines, tubes and drains: peripheral HEENT: normocephalic, atraumatic Neck: non-tender, normal alignment Respiratory/Chest: chest wall non-tender, lungs clear Breasts: no masses Cardiovascular/Chest: normal peripheral pulses Abdomen: normal bowel sounds, non tender Extremities: B/l leg erythema, swelling, with scratches and some minimal drainage Laboratory Tests Test 03/21/18 05:49 White Blood Count 9.7 K/UL (4.8-10.8) Red Blood Count 5.14 M/UL (4.70-6.10) Hemoglobin 13.7 G/DL (14.2-18.0) L Hematocrit 42.8 % (42.0-52.0) Mean Corpuscular Volume 83 FL (80-99) Mean Corpuscular Hemoglobin 26.7 PG (27.0-31.0) L Mean Corpuscular Hemoglobin Concent 32.0 G/DL (32.0-36.0) Red Cell Distribution Width 17.0 % (11.6-14.8) H Platelet Count 253 K/UL (150-450) Mean Platelet Volume 8.2 FL (6.5-10.1) Neutrophils (%) (Auto) 74.6 % (45.0-75.0) Lymphocytes (%) (Auto) 19.8 % (20.0-45.0) L Monocytes (%) (Auto) 2.9 % (1.0-10.0) Eosinophils (%) (Auto) 2.0 % (0.0-3.0) Basophils (%) (Auto) 0.8 % (0.0-2.0) Prothrombin Time 11.1 SEC (9.30-11.50) Prothromb Time International Ratio 1.1 (0.9-1.1) Activated Partial Thromboplast Time 27 SEC (23-33) Sodium Level 150 MMOL/L (136-145) H Potassium Level 3.4 MMOL/L (3.5-5.1) L Chloride Level 116 MMOL/L (98-107) H Carbon Dioxide Level 28 MMOL/L (21-32) Anion Gap 7 mmol/L (5-15) Blood Urea Nitrogen 33 mg/dL (7-18) H Creatinine 1.2 MG/DL (0.55-1.30) Estimat Glomerular Filtration Rate > 60 mL/min (>60) Glucose Level 151 MG/DL (74-106) #H Calcium Level 8.1 MG/DL (8.5-10.1) L Current Medications Medications (Trade) Dose Ordered Sig/Roseline Route PRN Reason Start Time Stop Time Status Last Admin Dose Admin Acetaminophen (Tylenol) 650 mg Q4H PRN ORAL fever (temp>100.5F) 03/17/18 19:00 03/30/18 18:59 Carvedilol (Coreg) 25 mg EVERY 12 HOURS ORAL 03/20/18 09:00 04/19/18 08:59 03/20/18 08:30 Dextrose 1,000 ml @ 50 mls/hr Q20H IV 03/17/18 19:00 04/16/18 12:59 03/21/18 02:53 Dextrose (Dextrose 50%) 25 ml Q30M PRN IV Hypoglycemia 03/17/18 19:00 03/30/18 13:59 Dextrose (Dextrose 50%) 50 ml Q30M PRN IV Hypoglycemia 03/17/18 19:00 03/30/18 13:59 Digoxin (Lanoxin) 0.125 mg DAILY IVP 03/18/18 09:00 04/02/18 14:21 03/20/18 11:40 Haloperidol Lactate (Haldol) 5 mg Q4H PRN IM Agitation 03/17/18 19:00 03/31/18 18:59 03/19/18 13:34 Hydralazine HCl (Apresoline) 25 mg Q6HR ORAL 03/18/18 00:00 04/15/18 00:00 03/20/18 17:15 Insulin Aspart (NovoLOG) EVERY 6 HOURS SUBQ 03/18/18 00:00 04/10/18 11:59 03/21/18 05:13 Lorazepam (Ativan 2mg/ml 1ml) 2 mg Q4H PRN IV For Anxiety 03/19/18 15:15 03/26/18 15:14 03/19/18 15:16 Losartan Potassium (Cozaar) 25 mg DAILY ORAL 03/20/18 09:00 04/19/18 08:59 03/20/18 08:31 Nitroglycerin (Ntg) 0.4 mg Q5M PRN SL Prn Chest Pain 03/17/18 19:00 03/30/18 18:20 Ondansetron HCl (Zofran) 4 mg Q6H PRN IVP Nausea & Vomiting 03/17/18 21:00 04/14/18 20:59 Pantoprazole (Protonix) 40 mg DAILY IV 03/18/18 09:00 04/08/18 08:59 03/21/18 10:37 Polyethylene Glycol (Miralax) 17 gm DAILYPRN PRN ORAL Constipation 03/17/18 21:00 04/14/18 20:59 Spironolactone (Aldactone) 12.5 mg DAILY ORAL 03/20/18 09:00 04/19/18 08:59 03/20/18 08:30 Susan Dennis M.D. Mar 21, 2018 11:29
--- NOTE | 2018-03-21 12:04 | Pre-Procedure Note/Attestation ---
Pre-Procedure Note/Attestation Complete Prior to Procedure Planned Procedure: not applicable Procedure Narrative: esophagogastroduodenoscopy/peg Indications for Procedure Pre-Operative Diagnosis: dysphagia Attestation I attest that I discussed the nature of the procedure; its benefits; risks and complications; and alternatives (and the risks and benefits of such alternatives ), prior to the procedure, with the patient (or the patient's legal authorization representative). I attest that, if there was a reasonable possibility of needing a blood transfusion, the patient (or the patient's legal authorization representative) was given the [facility] standardized written summary, pursuant to the [place] Blood Safety Act ([place] Health and Safety Code # 1645, as amended). I attest that I re-evaluated the patient just prior to the surgery and that there has been no change in the patient's H&P, except as documented below: Khalif Noe MD Mar 21, 2018 12:04
--- NOTE | 2018-03-21 12:06 | General Progress Note ---
Assessment/Plan Problem List: (1) A-fib ICD Codes: I48.91 - Unspecified atrial fibrillation SNOMED: 61958589 (2) Diabetes ICD Codes: E11.9 - Type 2 diabetes mellitus without complications SNOMED: 81768833 (3) Abnormal LFTs ICD Codes: R94.5 - Abnormal results of liver function studies SNOMED: 276739368 (4) Rapid atrial fibrillation ICD Codes: I48.91 - Unspecified atrial fibrillation SNOMED: 562427482 (5) Drug abuse ICD Codes: F19.10 - Other psychoactive substance abuse, uncomplicated SNOMED: 31607150 Assessment/Plan patient needs GT placement no family available for consent patient needs chronic enteral feeding will proceed with MD consent Subjective ROS Limited/Unobtainable: No Allergies: Coded Allergies: No Known Allergies (Unverified , 02/16/18) Objective Last 24 Hour Vital Signs Date Time Temp Pulse Resp B/P (MAP) Pulse Ox O2 Delivery O2 Flow Rate FiO2 03/21/18 10:38 67 127/79 03/21/18 10:38 127/79 03/21/18 10:37 67 03/21/18 09:58 95 Nasal Cannula 2.0 28 03/21/18 09:58 Nasal Cannula 2.0 28 03/21/18 08:00 97.3 67 20 127/79 (95) 95 03/21/18 05:08 125/79 03/21/18 04:00 97.1 65 18 125/79 (94) 100 03/21/18 00:00 97.4 64 19 142/79 (100) 98 03/21/18 00:00 142/79 03/20/18 21:00 Nasal Cannula 3.0 Nasal Cannula 3.0 Nasal Cannula 3.0 03/20/18 20:00 98.9 75 19 132/89 (103) 96 18 17:15 142/85 03/20/18 16:13 98.0 72 20 142/85 (104) 96 Intake and Output 03/20/18 03/21/18 19:00 07:00 Intake Total 2230 ml 450 ml Output Total 1000 ml 850 ml Balance 1230 ml -400 ml Free Water 850 ml IV Total 600 ml 450 ml Tube Feeding 780 ml Output Urine Total 1000 ml 850 ml # Bowel Movements 1 1 Laboratory Tests 03/21/18 05:49: White Blood Count 9.7, Red Blood Count 5.14, Hemoglobin 13.7L, Hematocrit 42.8, Mean Corpuscular Volume 83, Mean Corpuscular Hemoglobin 26.7L, Mean Corpuscular Hemoglobin Concent 32.0, Red Cell Distribution Width 17.0H, Platelet Count 253, Mean Platelet Volume 8.2, Neutrophils (%) (Auto) 74.6, Lymphocytes (%) (Auto) 19.8L, Monocytes (%) (Auto) 2.9, Eosinophils (%) (Auto) 2.0, Basophils (%) (Auto ) 0.8, Prothrombin Time 11.1, Prothromb Time International Ratio 1.1, Activated Partial Thromboplast Time 27, Sodium Level 150H, Potassium Level 3.4L, Chloride Level 116H, Carbon Dioxide Level 28, Anion Gap 7, Blood Urea Nitrogen 33H, Creatinine 1.2, Estimat Glomerular Filtration Rate > 60, Glucose Level 151#H, Calcium Level 8.1L Height (Feet): 6 Height (Inches): 0.00 Weight (Pounds): 252 General Appearance: lethargic EENT: normal ENT inspection Neck: supple Cardiovascular: normal rate Respiratory/Chest: decreased breath sounds Abdomen: normal bowel sounds, non tender, soft Extremities: non-tender Khalif Noe MD Mar 21, 2018 12:06
[2018-03-21] MEDS ORDERED: Propofol 200mg/20ml IV ONE (12:30)
[2018-03-21] MEDS ORDERED: Lidocaine 1% MPF 10mg/ml 5ml ONE (12:30)
[2018-03-21] MEDS ORDERED: cefOXitin 1gm Inj ONE (12:30)
[2018-03-21] MEDS ORDERED: ePHEDrine 50mg/ml Inj ONE (12:30)
--- NOTE | 2018-03-21 12:35 | Anethesia Preoperative Eval ---
Anesthesia Pre-op PMH/ROS General Date of Evaluation: Mar 21, 2018 Time of Evaluation: 12:32 Anesthesiologist: cristiano ASA Score: ASA 4 Mallampati Score Class I : Soft palate, uvula, fauces, pillars visible Class II: Soft palate, uvula, fauces visible Class III: Soft palate, base of uvula visible Class IV: Only hard plate visible Mallampati Classification: Class III Surgeon: judi Diagnosis: failure to thrive Surgical Procedure: PEG Anesthesia History: none Family History: no anesthesia problems Allergies: Coded Allergies: No Known Allergies (Unverified , 02/16/18) Medications: see eMAR Patient NPO?: Yes NPO Date: Mar 21, 2018 NPO Time: 00:00 Past Medical History Cardiovascular: Reports: HTN, CAD, valve dz, arrhythmia Neurologic/Psychiatric: Reports: dementia, depression/anxiety Endocrine: Reports: DM HEENT: Denies: cataract (L), cataract (R), glaucoma, CHEVAK (L), CHEVAK (R), other Hematology/Immune: Reports: anemia Musculoskeletal/Integumentary: Reports: OA PMH Narrative: 1. Atrial fibrillation with controlled ventricular response, continue carvedilol and digoxin. Dig level in am. 2. 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 We can initiate ARB and aldactone in face of normalized renal function. 3. Severe mitral regurgitation, afterload reduction with hydralazine and ARB. 4. Acute respiratory failure, resolved, on [place] oxygen. PSxH Narrative: unknown Anesthesia Pre-op Phys. Exam Physician Exam Last Vital Signs Date Time Temp Pulse Resp B/P (MAP) Pulse Ox O2 Delivery O2 Flow Rate FiO2 03/21/18 12:00 127/79 03/21/18 10:38 67 03/21/18 09:58 95 Nasal Cannula 2.0 28 03/21/18 08:00 97.3 20 Constitutional: other - stable for now Neurologic: other - response to pain and afew comments Cardiovascular: other Respiratory: other - rochi Gastrointestinal: S/NT/ND Airway Exam Mallampati Classification 3 Mallampati Score: Class III MO: limited Neck: thick ROM: limited Teeth: missing Anesthesia Pre-op A/P Labs Hematology Test 03/21/18 05:49 White Blood Count 9.7 K/UL (4.8-10.8) Red Blood Count 5.14 M/UL (4.70-6.10) Hemoglobin 13.7 G/DL (14.2-18.0) L Hematocrit 42.8 % (42.0-52.0) Mean Corpuscular Volume 83 FL (80-99) Mean Corpuscular Hemoglobin 26.7 PG (27.0-31.0) L Mean Corpuscular Hemoglobin Concent 32.0 G/DL (32.0-36.0) Red Cell Distribution Width 17.0 % (11.6-14.8) H Platelet Count 253 K/UL (150-450) Mean Platelet Volume 8.2 FL (6.5-10.1) Neutrophils (%) (Auto) 74.6 % (45.0-75.0) Lymphocytes (%) (Auto) 19.8 % (20.0-45.0) L Monocytes (%) (Auto) 2.9 % (1.0-10.0) Eosinophils (%) (Auto) 2.0 % (0.0-3.0) Basophils (%) (Auto) 0.8 % (0.0-2.0) Coagulation Test 03/21/18 05:49 Prothrombin Time 11.1 SEC (9.30-11.50) Prothromb Time International Ratio 1.1 (0.9-1.1) Activated Partial Thromboplast Time 27 SEC (23-33) Chemistry Test 03/21/18 05:49 Sodium Level 150 MMOL/L (136-145) H Potassium Level 3.4 MMOL/L (3.5-5.1) L Chloride Level 116 MMOL/L (98-107) H Carbon Dioxide Level 28 MMOL/L (21-32) Anion Gap 7 mmol/L (5-15) Blood Urea Nitrogen 33 mg/dL (7-18) H Creatinine 1.2 MG/DL (0.55-1.30) Estimat Glomerular Filtration Rate > 60 mL/min (>60) Glucose Level 151 MG/DL (74-106) #H Calcium Level 8.1 MG/DL (8.5-10.1) L Studies Pre-op Studies: EKG - afib hr 65 Risk Assessment & Plan Plan: MAC Pre-Antibiotics Drug: cefoxitin Given Within 1 Hr of Incision: Yes Time Given: 12:40 Ayse Thomas [facility] Mar 21, 2018 12:35
[2018-03-21] MEDS ORDERED: NS 500ML IVPB ONE (12:40)
[2018-03-21] MEDS ORDERED: cefOXitin 1gm Inj IVP ONE (12:42)
--- NOTE | 2018-03-21 12:57 | Endoscopy Procedure Note ---
Endoscopy Procedure Note General Indication for Procedure: dysphagia Procedures Performed: EGD, PEG Operative Findings/Diagnosis: same Specimen: none Pt Tolerated Procedure Well: Yes Estimated Blood Loss: none Anesthesia Anesthesiologist: diann Anesthesia: MAC Inserted Devices Implant(s) used?: No GI Core Measures 50 yrs or older w/o bx or poly: Not Applicable 10yrs. F/U not recommended: Not Applicable Khalif Noe MD Mar 21, 2018 12:57
--- NOTE | 2018-03-21 13:09 | Immediate Post-Op Evaluation ---
Immediate Post-Op Evalulation Immediate Post-Op Evalulation Procedure: PEG Date of Evaluation: Mar 21, 2018 Time of Evaluation: 13:09 IV Fluids: 300 Blood Pressure Systolic: 107 Blood Pressure Diastolic: 50 Pulse Rate: 65 Respiratory Rate: 14 O2 Sat by Pulse Oximetry: 95 Pain Score (1-10): 0 Nausea: No Vomiting: No Complications none Patient Status: awake, reacts, patent Hydration Status: adequate Drug: cefoxitin Given Within 1 Hr of Incision: Yes Time Given: 12:40 Ayse Thomas CRNA Mar 21, 2018 13:09
--- NOTE | 2018-03-21 13:47 | 48 Hour Post Anesthesia Eval ---
Post Anesthesia Evaluation Procedure: PEG Date of Evaluation: Mar 21, 2018 Time of Evaluation: 13:47 Blood Pressure Systolic: 101 0: 63 Pulse Rate: 65 Respiratory Rate: 14 O2 Sat by Pulse Oximetry: 93 - on 3 L Airway: patent Nausea: No Vomiting: No Hydration Status: adequate Cardiopulmonary Status: stable Mental Status/LOC: patient returned to baseline Follow-up Care/Observations: na Post-Anesthesia Complications: none Follow-up care needed: N/A Ayse Thomas [employer] Mar 21, 2018 13:47
--- NOTE | 2018-03-21 14:14 | Pulmonology Progress Note ---
Assessment/Plan Problems: (1) Acute encephalopathy (2) Diastolic CHF, chronic (3) Rapid atrial fibrillation (4) Diabetes (5) Cellulitis Assessment/Plan awake, comfortable failed swallow study PEG placed today check electrolytes all notes reviewed dvt prophylaxis Subjective ROS Limited/Unobtainable: No Constitutional: Reports: no symptoms HEENT: Repors: no symptoms Allergies: Coded Allergies: No Known Allergies (Unverified , 02/16/18) Objective Last 24 Hour Vital Signs Date Time Temp Pulse Resp B/P (MAP) Pulse Ox O2 Delivery O2 Flow Rate FiO2 03/21/18 13:47 65 14 93 03/21/18 13:30 54 22 108/65 92 Nasal Cannula 2 03/21/18 13:20 54 22 101/63 92 Simple Mask 8 03/21/18 13:10 61 22 101/61 92 Simple Mask 8 03/21/18 13:09 65 14 95 03/21/18 13:05 68 22 98/64 92 Simple Mask 8 03/21/18 12:58 97.0 70 22 91/50 92 Simple Mask 8 03/21/18 12:00 127/79 03/21/18 10:38 67 127/79 03/21/18 10:38 127/79 03/21/18 10:37 67 03/21/18 09:58 95 Nasal Cannula 2.0 28 03/21/18 09:58 Nasal Cannula 2.0 28 03/21/18 08:00 97.3 67 20 127/79 (95) 95 03/21/18 05:08 125/79 03/21/18 04:00 97.1 65 18 125/79 (94) 100 03/21/18 00:00 97.4 64 19 142/79 (100) 98 03/21/18 00:00 142/79 03/20/18 21:00 Nasal Cannula 3.0 Nasal Cannula 3.0 Nasal Cannula 3.0 03/20/18 20:00 98.9 75 19 132/89 (103) 96 18 17:15 142/85 18 16:13 98.0 72 20 142/85 (104) 96 Intake and Output 03/20/18 03/21/18 19:00 07:00 Intake Total 2230 ml 450 ml Output Total 1000 ml 850 ml Balance 1230 ml -400 ml Free Water 850 ml IV Total 600 ml 450 ml Tube Feeding 780 ml Output Urine Total 1000 ml 850 ml # Bowel Movements 1 1 Objective HEENT: normocephalic, atraumatic Respiratory/Chest: chest wall non-tender, lungs clear Cardiovascular: normal peripheral pulses, normal rate Abdomen: normal bowel sounds, soft, non tender Genitourinary: normal external genitalia Extremities: no clubbing Skin: no lesions Neurologic/Psychiatric: normal mood/affect Musculoskeletal: normal muscle bulk Laboratory Tests 03/21/18 05:49: White Blood Count 9.7, Red Blood Count 5.14, Hemoglobin 13.7L, Hematocrit 42.8, Mean Corpuscular Volume 83, Mean Corpuscular Hemoglobin 26.7L, Mean Corpuscular Hemoglobin Concent 32.0, Red Cell Distribution Width 17.0H, Platelet Count 253, Mean Platelet Volume 8.2, Neutrophils (%) (Auto) 74.6, Lymphocytes (%) (Auto) 19.8L, Monocytes (%) (Auto) 2.9, Eosinophils (%) (Auto) 2.0, Basophils (%) (Auto ) 0.8, Prothrombin Time 11.1, Prothromb Time International Ratio 1.1, Activated Partial Thromboplast Time 27, Sodium Level 150H, Potassium Level 3.4L, Chloride Level 116H, Carbon Dioxide Level 28, Anion Gap 7, Blood Urea Nitrogen 33H, Creatinine 1.2, Estimat Glomerular Filtration Rate > 60, Glucose Level 151#H, Calcium Level 8.1L Current Medications Medications (Trade) Dose Ordered Sig/Roseline Route PRN Reason Start Time Stop Time Status Last Admin Dose Admin Acetaminophen (Tylenol) 650 mg Q4H PRN ORAL fever (temp>100.5F) 03/17/18 19:00 03/30/18 18:59 Carvedilol (Coreg) 25 mg EVERY 12 HOURS ORAL 03/20/18 09:00 04/19/18 08:59 03/20/18 08:30 Dextrose 1,000 ml @ 50 mls/hr Q20H IV 03/17/18 19:00 04/16/18 12:59 03/21/18 02:53 Dextrose (Dextrose 50%) 25 ml Q30M PRN IV Hypoglycemia 03/17/18 19:00 03/30/18 13:59 Dextrose (Dextrose 50%) 50 ml Q30M PRN IV Hypoglycemia 03/17/18 19:00 03/30/18 13:59 Digoxin (Lanoxin) 0.125 mg DAILY IVP 03/18/18 09:00 04/02/18 14:21 03/20/18 11:40 Haloperidol Lactate (Haldol) 5 mg Q4H PRN IM Agitation 03/17/18 19:00 03/31/18 18:59 03/19/18 13:34 Hydralazine HCl (Apresoline) 25 mg Q6HR ORAL 03/18/18 00:00 04/15/18 00:00 03/20/18 17:15 Insulin Aspart (NovoLOG) EVERY 6 HOURS SUBQ 03/18/18 00:00 04/10/18 11:59 03/21/18 05:13 Lorazepam (Ativan 2mg/ml 1ml) 2 mg Q4H PRN IV For Anxiety 03/19/18 15:15 03/26/18 15:14 03/19/18 15:16 Losartan Potassium (Cozaar) 25 mg DAILY ORAL 03/20/18 09:00 04/19/18 08:59 03/20/18 08:31 Nitroglycerin (Ntg) 0.4 mg Q5M PRN SL Prn Chest Pain 03/17/18 19:00 03/30/18 18:20 Ondansetron HCl (Zofran) 4 mg Q6H PRN IVP Nausea & Vomiting 03/17/18 21:00 04/14/18 20:59 Pantoprazole (Protonix) 40 mg DAILY IV 03/18/18 09:00 04/08/18 08:59 03/21/18 10:37 Polyethylene Glycol (Miralax) 17 gm DAILYPRN PRN ORAL Constipation 03/17/18 21:00 04/14/18 20:59 Spironolactone (Aldactone) 12.5 mg DAILY ORAL 03/20/18 09:00 04/19/18 08:59 03/20/18 08:30 Sunita Sahni MD Mar 21, 2018 14:14
--- NOTE | 2018-03-21 14:47 | General Progress Note ---
Assessment/Plan Problem List: (1) Diabetes ICD Codes: E11.9 - Type 2 diabetes mellitus without complications SNOMED: 55573097 (2) Cellulitis ICD Codes: L03.90 - Cellulitis, unspecified SNOMED: 359557440 (3) Acute renal failure ICD Codes: N17.9 - Acute kidney failure, unspecified SNOMED: 51607554 (4) Rapid atrial fibrillation ICD Codes: I48.91 - Unspecified atrial fibrillation SNOMED: 666939320 Status: unchanged Assessment/Plan cardio f/u abx cbc bmp am gi eval ltach eval g tube was medically necessary to provide adequate nutrition Subjective Allergies: Coded Allergies: No Known Allergies (Unverified , 02/16/18) Subjective o2nc s/p peg sleeping Objective Last 24 Hour Vital Signs Date Time Temp Pulse Resp B/P (MAP) Pulse Ox O2 Delivery O2 Flow Rate FiO2 03/21/18 13:47 65 14 93 03/21/18 13:30 54 22 108/65 92 Nasal Cannula 2 03/21/18 13:20 54 22 101/63 92 Simple Mask 8 03/21/18 13:10 61 22 101/61 92 Simple Mask 8 03/21/18 13:09 65 14 95 03/21/18 13:05 68 22 98/64 92 Simple Mask 8 03/21/18 12:58 97.0 70 22 91/50 92 Simple Mask 8 03/21/18 12:00 127/79 03/21/18 10:38 67 127/79 03/21/18 10:38 127/79 03/21/18 10:37 67 03/21/18 09:58 95 Nasal Cannula 2.0 28 03/21/18 09:58 Nasal Cannula 2.0 28 03/21/18 08:00 97.3 67 20 127/79 (95) 95 03/21/18 05:08 125/79 03/21/18 04:00 97.1 65 18 125/79 (94) 100 03/21/18 00:00 97.4 64 19 142/79 (100) 98 03/21/18 00:00 142/79 03/20/18 21:00 Nasal Cannula 3.0 Nasal Cannula 3.0 Nasal Cannula 3.0 03/20/18 20:00 98.9 75 19 132/89 (103) 96 03/20/18 17:15 142/85 12/18/18 16:13 98.0 72 20 142/85 (104) 96 Intake and Output 03/20/18 03/21/18 19:00 07:00 Intake Total 2230 ml 450 ml Output Total 1000 ml 850 ml Balance 1230 ml -400 ml Free Water 850 ml IV Total 600 ml 450 ml Tube Feeding 780 ml Output Urine Total 1000 ml 850 ml # Bowel Movements 1 1 Laboratory Tests 03/21/18 05:49: White Blood Count 9.7, Red Blood Count 5.14, Hemoglobin 13.7L, Hematocrit 42.8, Mean Corpuscular Volume 83, Mean Corpuscular Hemoglobin 26.7L, Mean Corpuscular Hemoglobin Concent 32.0, Red Cell Distribution Width 17.0H, Platelet Count 253, Mean Platelet Volume 8.2, Neutrophils (%) (Auto) 74.6, Lymphocytes (%) (Auto) 19.8L, Monocytes (%) (Auto) 2.9, Eosinophils (%) (Auto) 2.0, Basophils (%) (Auto ) 0.8, Prothrombin Time 11.1, Prothromb Time International Ratio 1.1, Activated Partial Thromboplast Time 27, Sodium Level 150H, Potassium Level 3.4L, Chloride Level 116H, Carbon Dioxide Level 28, Anion Gap 7, Blood Urea Nitrogen 33H, Creatinine 1.2, Estimat Glomerular Filtration Rate > 60, Glucose Level 151#H, Calcium Level 8.1L Height (Feet): 6 Height (Inches): 0.00 Weight (Pounds): 252 General Appearance: lethargic EENT: normal ENT inspection Neck: normal alignment Cardiovascular: normal peripheral pulses, normal rate, regular rhythm Respiratory/Chest: chest wall non-tender, lungs clear, normal breath sounds Abdomen: normal bowel sounds, non tender, soft Extremities: normal inspection Edema: no edema noted Arm (L), no edema noted Arm (R), no edema noted Leg (L), no edema noted Leg (R), no edema noted Pedal (L), no edema noted Pedal (R), no edema noted Generalized Neurologic: motor weakness Skin: normal pigmentation, warm/dry Mick Garcia DO Mar 21, 2018 14:47
--- NOTE | 2018-03-21 16:30 | Procedure Note ---
DATE OF PROCEDURE: 03/21/2018 SURGEON: Khalif Noe M.D. PROCEDURE: Upper endoscopy with percutaneous endoscopic gastrostomy placement. ANESTHESIA: Per [employer] ATTORNEY, Ayse Tarrilllui. INSTRUMENT: Olympus adult flexible upper endoscope. INDICATION: Dysphagia. REASON FOR PROCEDURE: The procedure, risks, benefits, and possible consequences, including hemorrhage, aspiration, perforation and infection, and alternative treatments, were explained to the patient/legal guardian by Dr. Khalif Noe and the patient/legal guardian understood and accepted these risks. PROCEDURE IN DETAIL: After informed consent was obtained and the patient was adequately sedated, Olympus upper endoscope was advanced from the mouth into the second portion of duodenum and retroflexion was performed in the stomach. Then, under endoscopic guidance and under sterile condition, a 20-Y[place]ut pull type of G-tube was successfully placed in the epigastric area. The distance from the tip of the tube to skin was about 2.5 cm in size. The patient tolerated the procedure very well without any complication. SUMMARY OF FINDINGS: Status post successful PEG placement. RECOMMENDATIONS: 1. Abdominal binder. 2. Elevate the head of the bed at all times. 3. G-tube flush. 4. G-tube care. 5. Start tube feeding later today. 6. The patient needs a dose of antibiotics prior to this procedure. I want to thank Dr. Mick Garcia for this kind referral. Khalif Noe M.D. DR: ELAN JOB#: [id number] CC: Mick Garcia D.O.
--- NOTE | 2018-03-21 16:45 | Nephrology Progress Note ---
Assessment/Plan Assessment 1.hypernatremia 2.ZHAO 3.ckd 4.respiratory failure 5.CHF Plan continue current ivf hold lasix monitoring renal function avoid NSAID replace electrolyte as need it Subjective Constitutional: Reports: no symptoms HEENT: Reports: no symptoms Genitourinary: Reports: no symptoms Neurologic/Psychiatric: Reports: no symptoms Subjective in monitor bed on NG tube feeding Objective Objective Last 24 Hour Vital Signs Date Time Temp Pulse Resp B/P (MAP) Pulse Ox O2 Delivery O2 Flow Rate FiO2 03/21/18 13:47 65 14 93 03/21/18 13:30 54 22 108/65 92 Nasal Cannula 2 03/21/18 13:20 54 22 101/63 92 Simple Mask 8 03/21/18 13:10 61 22 101/61 92 Simple Mask 8 03/21/18 13:09 65 14 95 03/21/18 13:05 68 22 98/64 92 Simple Mask 8 03/21/18 12:58 97.0 70 22 91/50 92 Simple Mask 8 03/21/18 12:00 127/79 03/21/18 10:38 67 127/79 03/21/18 10:38 127/79 03/21/18 10:37 67 03/21/18 09:58 95 Nasal Cannula 2.0 28 03/21/18 09:58 Nasal Cannula 2.0 28 03/21/18 08:00 97.3 67 20 127/79 (95) 95 03/21/18 05:08 125/79 03/21/18 04:00 97.1 65 18 125/79 (94) 100 03/21/18 00:00 97.4 64 19 142/79 (100) 98 03/21/18 00:00 142/79 03/20/18 21:00 Nasal Cannula 3.0 Nasal Cannula 3.0 Nasal Cannula 3.0 03/20/18 20:00 98.9 75 19 132/89 (103) 96 03/20/18 17:15 142/85 Intake and Output 03/20/18 03/21/18 19:00 07:00 Intake Total 2230 ml 450 ml Output Total 1000 ml 850 ml Balance 1230 ml -400 ml Free Water 850 ml IV Total 600 ml 450 ml Tube Feeding 780 ml Output Urine Total 1000 ml 850 ml # Bowel Movements 1 1 Laboratory Tests 03/21/18 05:49: White Blood Count 9.7, Red Blood Count 5.14, Hemoglobin 13.7L, Hematocrit 42.8, Mean Corpuscular Volume 83, Mean Corpuscular Hemoglobin 26.7L, Mean Corpuscular Hemoglobin Concent 32.0, Red Cell Distribution Width 17.0H, Platelet Count 253, Mean Platelet Volume 8.2, Neutrophils (%) (Auto) 74.6, Lymphocytes (%) (Auto) 19.8L, Monocytes (%) (Auto) 2.9, Eosinophils (%) (Auto) 2.0, Basophils (%) (Auto ) 0.8, Prothrombin Time 11.1, Prothromb Time International Ratio 1.1, Activated Partial Thromboplast Time 27, Sodium Level 150H, Potassium Level 3.4L, Chloride Level 116H, Carbon Dioxide Level 28, Anion Gap 7, Blood Urea Nitrogen 33H, Creatinine 1.2, Estimat Glomerular Filtration Rate > 60, Glucose Level 151#H, Calcium Level 8.1L Height (Feet): 6 Height (Inches): 0.00 Weight (Pounds): 252 Objective HEENT: Atraumatic and normocephalic. Anicteric. Pupils are equal, round, and reactive to light and accommodation. Extraocular muscles intact. Altered. NECK: JVP elevated about 5cm. No carotid bruits. Carotid upstrokes 2+ bilaterally. CARDIOVASCULAR: Normal S1, S2. Irregularly irregular rhythm. 2/6 Holosystolic murmur, gallop, or rub. LUNGS: Diminished BS both lungs. ABDOMEN: Soft, nontender, and nondistended. No hepatosplenomegaly. Positive bowel sounds. EXTREMITIES: There is 1+ bilateral lower extremity edema with ulcerations. Maryana Collier MD Mar 21, 2018 16:45
--- NOTE | 2018-03-21 17:22 | Cardiology Progress Note ---
Assessment/Plan Assessment/Plan 1. Atrial fibrillation with controlled ventricular response, continue carvedilol and digoxin. Dig level at 1.0 2. Acute on chronic systolic and diastolic heart failure with LVEF at 25% with severe mitral regurgitation, continue carvedilol, ACEI, digoxin and hydralazine. 3. Severe mitral regurgitation, afterload reduction with hydralazine and ARB. 4. Acute respiratory failure, resolved, on NC oxygen. Subjective Subjective Not on the telemetry unit. No cardiac events. Objective Last 24 Hour Vital Signs Date Time Temp Pulse Resp B/P (MAP) Pulse Ox O2 Delivery O2 Flow Rate FiO2 03/21/18 16:00 97.2 74 20 122/83 (96) 97 03/21/18 13:47 65 14 93 03/21/18 13:30 54 22 108/65 92 Nasal Cannula 2 03/21/18 13:20 54 22 101/63 92 Simple Mask 8 03/21/18 13:10 61 22 101/61 92 Simple Mask 8 03/21/18 13:09 65 14 95 03/21/18 13:05 68 22 98/64 92 Simple Mask 8 03/21/18 12:58 97.0 70 22 91/50 92 Simple Mask 8 03/21/18 12:00 127/79 03/21/18 10:38 67 127/79 03/21/18 10:38 127/79 03/21/18 10:37 67 03/21/18 09:58 95 Nasal Cannula 2.0 28 03/21/18 09:58 Nasal Cannula 2.0 28 03/21/18 09:00 Nasal Cannula 3.0 Nasal Cannula 3.0 Nasal Cannula 3.0 03/21/18 08:00 97.3 67 20 127/79 (95) 95 18 05:08 125/79 03/21/18 04:00 97.1 65 18 125/79 (94) 100 03/21/18 00:00 97.4 64 19 142/79 (100) 98 03/21/18 00:00 142/79 03/20/18 21:00 Nasal Cannula 3.0 Nasal Cannula 3.0 Nasal Cannula 3.0 03/20/18 20:00 98.9 75 19 132/89 (103) 96 Intake and Output 03/20/18 03/21/18 19:00 07:00 Intake Total 2230 ml 450 ml Output Total 1000 ml 850 ml Balance 1230 ml -400 ml Free Water 850 ml IV Total 600 ml 450 ml Tube Feeding 780 ml Output Urine Total 1000 ml 850 ml # Bowel Movements 1 1 2D Echo: LVEF 25%, Bi-atrial enlargement, Severe MR, RVSP 24 mmHg, RAP 15 mmHg Laboratory Tests Test 03/21/18 05:49 White Blood Count 9.7 K/UL (4.8-10.8) Red Blood Count 5.14 M/UL (4.70-6.10) Hemoglobin 13.7 G/DL (14.2-18.0) L Hematocrit 42.8 % (42.0-52.0) Mean Corpuscular Volume 83 FL (80-99) Mean Corpuscular Hemoglobin 26.7 PG (27.0-31.0) L Mean Corpuscular Hemoglobin Concent 32.0 G/DL (32.0-36.0) Red Cell Distribution Width 17.0 % (11.6-14.8) H Platelet Count 253 K/UL (150-450) Mean Platelet Volume 8.2 FL (6.5-10.1) Neutrophils (%) (Auto) 74.6 % (45.0-75.0) Lymphocytes (%) (Auto) 19.8 % (20.0-45.0) L Monocytes (%) (Auto) 2.9 % (1.0-10.0) Eosinophils (%) (Auto) 2.0 % (0.0-3.0) Basophils (%) (Auto) 0.8 % (0.0-2.0) Prothrombin Time 11.1 SEC (9.30-11.50) Prothromb Time International Ratio 1.1 (0.9-1.1) Activated Partial Thromboplast Time 27 SEC (23-33) Sodium Level 150 MMOL/L (136-145) H Potassium Level 3.4 MMOL/L (3.5-5.1) L Chloride Level 116 MMOL/L (98-107) H Carbon Dioxide Level 28 MMOL/L (21-32) Anion Gap 7 mmol/L (5-15) Blood Urea Nitrogen 33 mg/dL (7-18) H Creatinine 1.2 MG/DL (0.55-1.30) Estimat Glomerular Filtration Rate > 60 mL/min (>60) Glucose Level 151 MG/DL (74-106) #H Calcium Level 8.1 MG/DL (8.5-10.1) L Objective HEENT: Atraumatic and normocephalic. Anicteric. Pupils are equal, round, and reactive to light and accommodation. Extraocular muscles intact. NECK: JVP elevated about 5cm. No carotid bruits. Carotid upstrokes 2+ bilaterally. CARDIOVASCULAR: Normal S1, S2. Irregularly irregular rhythm. 2/6 Holosystolic murmur, gallop, or rub. LUNGS: Diminished BS both lungs. ABDOMEN: Soft, nontender, and nondistended. No hepatosplenomegaly. Positive bowel sounds. EXTREMITIES: There is 1+ bilateral lower extremity edema with ulcerations. Sudarshan Stuart MD Mar 21, 2018 17:22
--- NOTE | 2018-03-21 19:34 | Neurology Progress Note ---
Interim History Interim History Interim History Mr. Cornejo is non-verbal today. He had his G-tube placed today. He is awake and responsive. He can follow commands inconsistently. He is not communicative. He can move his hands on command but not his feet. He is able to protrude his tongue on command. Review of Systems Neuro Review of Systems Unable to obtain. Objective Physical Exam Last Vital Signs Date Time Temp Pulse Resp B/P (MAP) Pulse Ox O2 Delivery O2 Flow Rate FiO2 03/21/18 18:00 122/83 03/21/18 16:00 97.2 74 20 97 03/21/18 13:30 Nasal Cannula 2 03/21/18 09:58 28 Laboratory Tests Test 03/21/18 05:49 White Blood Count 9.7 K/UL (4.8-10.8) Red Blood Count 5.14 M/UL (4.70-6.10) Hemoglobin 13.7 G/DL (14.2-18.0) L Hematocrit 42.8 % (42.0-52.0) Mean Corpuscular Volume 83 FL (80-99) Mean Corpuscular Hemoglobin 26.7 PG (27.0-31.0) L Mean Corpuscular Hemoglobin Concent 32.0 G/DL (32.0-36.0) Red Cell Distribution Width 17.0 % (11.6-14.8) H Platelet Count 253 K/UL (150-450) Mean Platelet Volume 8.2 FL (6.5-10.1) Neutrophils (%) (Auto) 74.6 % (45.0-75.0) Lymphocytes (%) (Auto) 19.8 % (20.0-45.0) L Monocytes (%) (Auto) 2.9 % (1.0-10.0) Eosinophils (%) (Auto) 2.0 % (0.0-3.0) Basophils (%) (Auto) 0.8 % (0.0-2.0) Prothrombin Time 11.1 SEC (9.30-11.50) Prothromb Time International Ratio 1.1 (0.9-1.1) Activated Partial Thromboplast Time 27 SEC (23-33) Sodium Level 150 MMOL/L (136-145) H Potassium Level 3.4 MMOL/L (3.5-5.1) L Chloride Level 116 MMOL/L (98-107) H Carbon Dioxide Level 28 MMOL/L (21-32) Anion Gap 7 mmol/L (5-15) Blood Urea Nitrogen 33 mg/dL (7-18) H Creatinine 1.2 MG/DL (0.55-1.30) Estimat Glomerular Filtration Rate > 60 mL/min (>60) Glucose Level 151 MG/DL (74-106) #H Calcium Level 8.1 MG/DL (8.5-10.1) L Neurologic Exam Objective PHYSICAL EXAMINATION: GENERAL: He is a well developed, well nourished, gentleman, lying in bed. HEAD: Normocephalic and atraumatic. EENT: Examination benign. NECK: No neck rigidity was observed. NEUROLOGIC EXAMINATION: MENTAL STATUS EXAMINATION: He was awake but less responsive. He was non-verbal. He followed simple commands inconsistently. Further mental status testing was impossible. SPEECH: He was non-verbal. LANGUAGE: Could not be tested adequately. CRANIAL NERVE EXAMINATION: II: He did blink to threat but not consistently. III, IV & : The external ocular movements were present. The pupils were 3 mm in diameter and did not react to light. V & VII: The corneal reflexes were equal. VIII: He did respond to sounds and had no nystagmus. IX & X: The gag reflex was absent. XI: The sternocleidomastoids and trapezii did function. XII: He protruded his tongue on command. MOTOR SYSTEM: The tone was normal in all 4 extremities. Examination of muscle mass revealed no focal wasting. 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 Examination of power was impossible to perform accurately. He was able to give a good squeeze with both hands but was unable to move the lower extremities. SENSORY EXAMINATION: He did not respond to deep painful stimuli. REFLEXES: 0 at the biceps, triceps, brachioradialis, knees, and ankles. The right plantar response could not be tested as he had no toes, and the left plantar response was mute. COORDINATION, STANCE & GAIT: Could not be tested. Impression/Recommendations Diagnostic Impression 1. Mr. Dustin Cornejo is a 57-year-old, gentleman, of unknown handedness, who was hospitalized for right lower extremity cellulitis and then in the hospital deteriorated to a point where became quite altered with regards to his mental state on 03/05/2018 and was transferred to the ICU. He was noted to have atrial fibrillation with a rapid ventricular rate and shortness of breath related to hypoxic respiratory failure and then became agitated as a result of which he was given multiple doses of Ativan, Haldol, and morphine. 2. He is non-verbal today. He had his G-tube placed today. He is awake and responsive. He can follow commands inconsistently. He is not communicative. He can move his hands on command but not his feet. He is able to protrude his tongue on command. 3. On neurological examination, at this time, he is awake. He he follows commands more consistently. He does blink to threat inconsistently. He is able to give me good hand sole blacker but is unable to move his feet. He does not respond to deep pain. He does not demonstrate any lateralizing findings. He has globally absent deep tendon reflexes, and the plantar response on the left side is mute. 4. His latest laboratory data on my initial evaluation revealed his WBC count was elevated to 13,400. He had his last ESR on 03/02/2018 and it was 7. His blood gases revealed that he had a pH of 7.48, pCO2 of 35, and pO2 of 51. His latest chemistry panel revealed that his sodium was elevated to 155. His chloride was elevated to 118. His BUN was elevated to 41. His creatinine was elevated to 1.3. His glucose was elevated to 208. His total bilirubin was elevated at 2.8. His AST, ALT, and alkaline phosphatase were all elevated. His albumin was low at 2.2. His urine toxicology screen on admission revealed that tetrahydrocannabinols were present. His serologies were negative for HIV. 5. Further laboratory tests revealed a normal B12, Folate, TSH but the Hb A1C was elevated at 9.2%. 6. The CT of the brain done on 03/07/18 revealed atrophy and deep white matter disease but no acute pathology. 7. The EEG revealed a moderate toxic/metabolic encephalopathy. 8. The MRI of the brain done on 03/19/18 revealed no acute pathology. 9. The patient's history, neurological examination, laboratory data, EEG and imaging are most compatible with a severe toxic metabolic encephalopathy, which is multifactorial. The recent cardiac arrest has led to an anoxic/ischemic encephalopathy. Acute intracranial pathology of significance has been excluded. 10. His encephalopathy is minimally worse today. Recommendations 1. Continue present management. 2. Keep the patient off all mind-altering drugs. 3. Correct toxic/metabolic imbalances the best possible. Dawit Marshall M.D., M.S.P.H. Dawit Marshall MD Mar 21, 2018 19:34
[2018-03-22] VITALS: BP 125/79
[2018-03-22 04:00] VITALS: BP 118/74
[2018-03-22] MEDS: HydrALAZINE 25mg tab ORAL SCH ×3 (05:28→18:06)
[2018-03-22] MEDS: NovoLOG Insulin Flexpen SUBQ SCH ×3 (05:29→18:08)
[2018-03-22 06:40] LABS: BASOPHILS % (AUTO) 0.8 % (0.0-2.0); EOSINOPHILS % (AUTO) 1.1 % (0.0-3.0); HEMATOCRIT 44.6 % (42.0-52.0); HEMOGLOBIN 14.3 G/DL (14.2-18.0); MEAN CORPUSCULAR VOLUME 84 FL (80-99); MONOCYTES % (AUTO) 3.8 % (1.0-10.0); NEUTROPHILS % (AUTO) 81.4 % (45.0-75.0); PLATELET COUNT 278 K/UL (150-450); RED BLOOD COUNT 5.33 M/UL (4.70-6.10); RED CELL DISTRIBUTION WIDTH 16.5 % (11.6-14.8); WHITE BLOOD COUNT 12.6 K/UL (4.8-10.8)
[2018-03-22 06:57] LABS: ANION GAP 9 mmol/L (5-15); BLOOD UREA NITROGEN 31 mg/dL (7-18); CARBON DIOXIDE 26 MMOL/L (21-32); CHLORIDE 115 MMOL/L (98-107); CREATININE 1.3 MG/DL (0.55-1.30); POTASSIUM 3.7 MMOL/L (3.5-5.1); SODIUM 149 MMOL/L (136-145)
[2018-03-22 08:00] VITALS: BP 105/53
[2018-03-22] MEDS: Carvedilol 25mg Tab ORAL SCH (09:00)
[2018-03-22] MEDS: Losartan 25mg tab ORAL SCH (09:00)
[2018-03-22] MEDS: Spironolactone 25mg tab ORAL SCH (09:00)
[2018-03-22] MEDS: Digoxin 0.5mg/2ml Inj IVP SCH (11:12)
[2018-03-22] MEDS: Pantoprazole Inj IV SCH (11:12)
--- NOTE | 2018-03-22 11:13 | Nephrology Progress Note ---
Assessment/Plan Assessment 1.hypernatremia 2.ZHOA 3.ckd 4.respiratory failure 5.CHF Plan continue current ivf hold lasix monitoring renal function avoid NSAID replace electrolyte as need it Subjective Constitutional: Reports: no symptoms HEENT: Reports: no symptoms Genitourinary: Reports: no symptoms Neurologic/Psychiatric: Reports: no symptoms Subjective in monitor bed on NG tube feeding Objective Objective Last 24 Hour Vital Signs Date Time Temp Pulse Resp B/P (MAP) Pulse Ox O2 Delivery O2 Flow Rate FiO2 03/22/18 09:00 68 105/53 03/22/18 09:00 105/53 03/22/18 08:00 97.2 68 18 105/53 (70) 98 03/22/18 05:28 118/74 03/22/18 04:00 97.8 78 20 118/74 (89) 99 03/22/18 00:00 97.8 73 20 125/79 (94) 95 03/21/18 23:50 113/87 03/21/18 21:00 Nasal Cannula 3.0 Nasal Cannula 3.0 Nasal Cannula 3.0 03/21/18 20:39 71 122/75 03/21/18 20:00 98.4 71 22 122/75 (91) 98 03/21/18 18:00 122/83 03/21/18 16:00 97.2 74 20 122/83 (96) 97 03/21/18 13:47 65 14 93 03/21/18 13:30 54 22 108/65 92 Nasal Cannula 2 03/21/18 13:20 54 22 101/63 92 Simple Mask 8 03/21/18 13:10 61 22 101/61 92 Simple Mask 8 03/21/18 13:09 65 14 95 03/21/18 13:05 68 22 98/64 92 Simple Mask 8 03/21/18 12:58 97.0 70 22 91/50 92 Simple Mask 8 03/21/18 12:00 127/79 Intake and Output 03/21/18 03/22/18 19:00 07:00 Intake Total 750 ml 820 ml Output Total 1600 ml Balance -850 ml 820 ml Free Water 150 ml 70 ml IV Total 550 ml 350 ml Tube Feeding 50 ml 400 ml Output Urine Total 1600 ml # Bowel Movements 1 Laboratory Tests 03/22/18 04:50: White Blood Count 12.6H, Red Blood Count 5.33, Hemoglobin 14.3, Hematocrit 44.6 , Mean Corpuscular Volume 84, Mean Corpuscular Hemoglobin 26.8L, Mean Corpuscular Hemoglobin Concent 32.1, Red Cell Distribution Width 16.5H, Platelet Count 278, Mean Platelet Volume 8.4, Neutrophils (%) (Auto) 81.4H, Lymphocytes (%) (Auto) 13.0L, Monocytes (%) (Auto) 3.8, Eosinophils (%) (Auto) 1.1, Basophils (%) (Auto) 0.8, Sodium Level 149H, Potassium Level 3.7, Chloride Level 115H, Carbon Dioxide Level 26, Anion Gap 9, Blood Urea Nitrogen 31H, Creatinine 1.3, Estimat Glomerular Filtration Rate 57.3, Glucose Level 178H, Calcium Level 8.0L Height (Feet): 6 Height (Inches): 0.00 Weight (Pounds): 252 Objective HEENT: Atraumatic and normocephalic. Anicteric. Pupils are equal, round, and reactive to light and accommodation. Extraocular muscles intact. Altered. NECK: JVP elevated about 5cm. No carotid bruits. Carotid upstrokes 2+ bilaterally. CARDIOVASCULAR: Normal S1, S2. Irregularly irregular rhythm. 2/6 Holosystolic murmur, gallop, or rub. LUNGS: Diminished BS both lungs. ABDOMEN: Soft, nontender, and nondistended. No hepatosplenomegaly. Positive bowel sounds. EXTREMITIES: There is 1+ bilateral lower extremity edema with ulcerations. Maryana Collier MD Mar 22, 2018 11:13
--- NOTE | 2018-03-22 11:33 | Infectious Diseases Prog Note ---
Assessment/Plan Assessment/Plan Assessment/Plan s/p Code blue 03/08 Aspiration PNA, s/p Rx -sp cx ESBL E.coli (S Zosyn, Erta) -03/14 CXR: Persistent right basilar infiltrate and/or pleural effusion. Increasing left infrahilar infiltrate -03/08 cXR: Increasing right upper lung parenchymal opacity may reflect developing infiltrate in the right upper lobe. There is improved aeration of the right lung base -CXR: Improved aeration of the right lung, presumably representing improving atelectasis. Right lower lobe infiltrate. There may also be pleural fluid on the right. Bilateral interstitial disease. Probably on the basis of pulmonary edema. However, considerable central bronchial wall thickening suggests a significant chronic component Fever, SP -03/18 sp R femoral line removed; cath tip cx NTD -03/15 Bcx NTD Leukocytosis, mild recurrent B/l LE purulent cellulitis- legs with scratches (self inflicted) ; SP -wound cx MRSA -L foot tibia/fibula xray: No acute process -R foot tibia/fibula xray: No acute bony trauma Acute encephalopathy - improving -Brain MRI: Limited exam, as described. Grossly negative for acute intracranial bleed, mass effect, or infarct. 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 Acute cholecystitis doubtful but not conclusively excluded based on these images and prior ultrasound, which showed a nondistended gallbladder. Patent common bile duct -Abd US: Cholelithiasis. Borderline gallbladder wall thickening, could indicate early acute cholecystitis changes. Consider hepatobiliary nuclear scan if there is high clinical suspicion. Negative for dilated ducts Incidental finding bilateral pleural effusions -acute hep panel, HIV sc neg ZHAO, improving DM2 HTN CHF Schizoaffective disorder Plan: - Continue to monitor off abx -03/16 S/P Ertapenem d # 8 -03/15 SP IV Vancomycin #14 -/ SP ZOsyn #4 -03/06 SP Ceftriaxone #2 -03/03 SP Ancef #2 -03/01 SP Cefepime #2 -f/u Bcx x2 -f/u cx -Monitor CBC/CMP, temperatures -wound care -Sx, GI, Neuro f/u -CBC, CMP am Discussed with RN Subjective Allergies: Coded Allergies: No Known Allergies (Unverified , 02/16/18) Subjective afebrile no leukocytosis Bcx NTD Objective Vital Signs Last 24 Hour Vital Signs Date Time Temp Pulse Resp B/P (MAP) Pulse Ox O2 Delivery O2 Flow Rate FiO2 03/22/18 11:12 68 03/22/18 09:00 68 105/53 03/22/18 09:00 105/53 03/22/18 08:00 97.2 68 18 105/53 (70) 98 03/22/18 05:28 118/74 03/22/18 04:00 97.8 78 20 118/74 (89) 99 03/22/18 00:00 97.8 73 20 125/79 (94) 95 03/21/18 23:50 113/87 03/21/18 21:00 Nasal Cannula 3.0 Nasal Cannula 3.0 Nasal Cannula 3.0 03/21/18 20:39 71 122/75 03/21/18 20:00 98.4 71 22 122/75 (91) 98 03/21/18 18:00 122/83 03/21/18 16:00 97.2 74 20 122/83 (96) 97 03/21/18 13:47 65 14 93 03/21/18 13:30 54 22 108/65 92 Nasal Cannula 2 03/21/18 13:20 54 22 101/63 92 Simple Mask 8 03/21/18 13:10 61 22 101/61 92 Simple Mask 8 03/21/18 13:09 65 14 95 03/21/18 13:05 68 22 98/64 92 Simple Mask 8 03/21/18 12:58 97.0 70 22 91/50 92 Simple Mask 8 03/21/18 12:00 127/79 Height (Feet): 6 Height (Inches): 0.00 Weight (Pounds): 252 Objective General Appearance: WD/WN Lines, tubes and drains: peripheral HEENT: normocephalic, atraumatic Neck: non-tender, normal alignment Respiratory/Chest: chest wall non-tender, lungs clear Breasts: no masses Cardiovascular/Chest: normal peripheral pulses Abdomen: normal bowel sounds, non tender Extremities: B/l leg erythema, swelling, with scratches and some minimal drainage Laboratory Tests Test 03/22/18 04:50 White Blood Count 12.6 K/UL (4.8-10.8) H Red Blood Count 5.33 M/UL (4.70-6.10) Hemoglobin 14.3 G/DL (14.2-18.0) Hematocrit 44.6 % (42.0-52.0) Mean Corpuscular Volume 84 FL (80-99) Mean Corpuscular Hemoglobin 26.8 PG (27.0-31.0) L Mean Corpuscular Hemoglobin Concent 32.1 G/DL (32.0-36.0) Red Cell Distribution Width 16.5 % (11.6-14.8) H Platelet Count 278 K/UL (150-450) Mean Platelet Volume 8.4 FL (6.5-10.1) Neutrophils (%) (Auto) 81.4 % (45.0-75.0) H Lymphocytes (%) (Auto) 13.0 % (20.0-45.0) L Monocytes (%) (Auto) 3.8 % (1.0-10.0) Eosinophils (%) (Auto) 1.1 % (0.0-3.0) Basophils (%) (Auto) 0.8 % (0.0-2.0) Sodium Level 149 MMOL/L (136-145) H Potassium Level 3.7 MMOL/L (3.5-5.1) Chloride Level 115 MMOL/L (98-107) H Carbon Dioxide Level 26 MMOL/L (21-32) Anion Gap 9 mmol/L (5-15) Blood Urea Nitrogen 31 mg/dL (7-18) H Creatinine 1.3 MG/DL (0.55-1.30) Estimat Glomerular Filtration Rate 57.3 mL/min (>60) Glucose Level 178 MG/DL (74-106) H Calcium Level 8.0 MG/DL (8.5-10.1) L Current Medications Medications (Trade) Dose Ordered Sig/Roseline Route PRN Reason Start Time Stop Time Status Last Admin Dose Admin Acetaminophen (Tylenol) 650 mg Q4H PRN ORAL fever (temp>100.5F) 03/17/18 19:00 03/30/18 18:59 Carvedilol (Coreg) 25 mg EVERY 12 HOURS ORAL 03/20/18 09:00 04/19/18 08:59 03/21/18 20:39 Dextrose 1,000 ml @ 50 mls/hr Q20H IV 03/17/18 19:00 04/16/18 12:59 03/21/18 23:51 Dextrose (Dextrose 50%) 25 ml Q30M PRN IV Hypoglycemia 03/17/18 19:00 03/30/18 13:59 Dextrose (Dextrose 50%) 50 ml Q30M PRN IV Hypoglycemia 03/17/18 19:00 03/30/18 13:59 Digoxin (Lanoxin) 0.125 mg DAILY IVP 03/18/18 09:00 04/02/18 14:21 03/22/18 11:12 Haloperidol Lactate (Haldol) 5 mg Q4H PRN IM Agitation 03/17/18 19:00 03/31/18 18:59 03/19/18 13:34 Hydralazine HCl (Apresoline) 25 mg Q6HR ORAL 03/18/18 00:00 04/15/18 00:00 03/22/18 05:28 Insulin Aspart (NovoLOG) EVERY 6 HOURS SUBQ 03/18/18 00:00 04/10/18 11:59 03/22/18 05:29 Lorazepam (Ativan 2mg/ml 1ml) 2 mg Q4H PRN IV For Anxiety 03/19/18 15:15 03/26/18 15:14 03/19/18 15:16 Losartan Potassium (Cozaar) 25 mg DAILY ORAL 03/20/18 09:00 04/19/18 08:59 03/20/18 08:31 Nitroglycerin (Ntg) 0.4 mg Q5M PRN SL Prn Chest Pain 03/17/18 19:00 03/30/18 18:20 Ondansetron HCl (Zofran) 4 mg Q6H PRN IVP Nausea & Vomiting 03/17/18 21:00 04/14/18 20:59 Pantoprazole (Protonix) 40 mg DAILY IV 03/18/18 09:00 04/08/18 08:59 03/22/18 11:12 Polyethylene Glycol (Miralax) 17 gm DAILYPRN PRN ORAL Constipation 03/17/18 21:00 04/14/18 20:59 Spironolactone (Aldactone) 12.5 mg DAILY ORAL 03/20/18 09:00 04/19/18 08:59 03/20/18 08:30 Susan Dennis M.D. Mar 22, 2018 11:33
[2018-03-22 12:00] VITALS: BP 130/59
--- NOTE | 2018-03-22 12:49 | GI Progress Note ---
Assessment/Plan Problems: (1) Dysphagia ICD Codes: R13.10 - Dysphagia, unspecified SNOMED: 74790435, 815004624 (2) Drug abuse ICD Codes: F19.10 - Other psychoactive substance abuse, uncomplicated SNOMED: 24080731 (3) Encounter for PEG (percutaneous endoscopic gastrostomy) ICD Codes: Z43.1 - Encounter for attention to gastrostomy SNOMED: 458266888, 965474829 (4) Diastolic CHF, chronic ICD Codes: I50.32 - Chronic diastolic (congestive) heart failure SNOMED: 98201756, 940914989 (5) Abnormal LFTs ICD Codes: R94.5 - Abnormal results of liver function studies SNOMED: 288336814 Status: stable Status Narrative Discussed with Dr. Noe Assessment/Plan Cholelithiasis. Borderline gallbladder wall thickening. neg hepatitis panel and HIDA SUMMARY OF FINDINGS: Status post successful PEG placement. RECOMMENDATIONS: 1. Abdominal binder. 2. Elevate the head of the bed at all times. 3. G-tube flush. 4. G-tube care. 5. Start tube feeding later today. 6. The patient needs a dose of antibiotics prior to this procedure. Discharge planning The patient was seen and examined at bedside and all new and available data was reviewed in the patients chart. I agree with the above findings, impression and plan. (Patient seen earlier today. Signature stamp does not reflect patient encounter time.). - Khalif Noe MD Subjective Subjective limited Objective Last 24 Hour Vital Signs Date Time Temp Pulse Resp B/P (MAP) Pulse Ox O2 Delivery O2 Flow Rate FiO2 03/22/18 12:00 97.3 96 18 130/59 (82) 97 03/22/18 11:12 68 03/22/18 09:00 68 105/53 03/22/18 09:00 105/53 03/22/18 08:00 97.2 68 18 105/53 (70) 98 03/22/18 07:10 98 Nasal Cannula 2.0 28 03/22/18 07:10 Nasal Cannula 2.0 28 03/22/18 05:28 118/74 03/22/18 04:00 97.8 78 20 118/74 (89) 99 03/22/18 00:00 97.8 73 20 125/79 (94) 95 12/19/18 23:50 113/87 03/21/18 21:00 Nasal Cannula 3.0 Nasal Cannula 3.0 Nasal Cannula 3.0 03/21/18 20:39 71 122/75 03/21/18 20:00 98.4 71 22 122/75 (91) 98 18 18:00 122/83 03/21/18 16:00 97.2 74 20 122/83 (96) 97 03/21/18 13:47 65 14 93 03/21/18 13:30 54 22 108/65 92 Nasal Cannula 2 03/21/18 13:20 54 22 101/63 92 Simple Mask 8 03/21/18 13:10 61 22 101/61 92 Simple Mask 8 03/21/18 13:09 65 14 95 03/21/18 13:05 68 22 98/64 92 Simple Mask 8 03/21/18 12:58 97.0 70 22 91/50 92 Simple Mask 8 Intake and Output 03/21/18 03/22/18 19:00 07:00 Intake Total 750 ml 880 ml Output Total 1600 ml Balance -850 ml 880 ml Free Water 150 ml 70 ml IV Total 550 ml 350 ml Tube Feeding 50 ml 460 ml Output Urine Total 1600 ml # Bowel Movements 1 Laboratory Tests Test 03/22/18 04:50 White Blood Count 12.6 K/UL (4.8-10.8) H Red Blood Count 5.33 M/UL (4.70-6.10) Hemoglobin 14.3 G/DL (14.2-18.0) Hematocrit 44.6 % (42.0-52.0) Mean Corpuscular Volume 84 FL (80-99) Mean Corpuscular Hemoglobin 26.8 PG (27.0-31.0) L Mean Corpuscular Hemoglobin Concent 32.1 G/DL (32.0-36.0) Red Cell Distribution Width 16.5 % (11.6-14.8) H Platelet Count 278 K/UL (150-450) Mean Platelet Volume 8.4 FL (6.5-10.1) Neutrophils (%) (Auto) 81.4 % (45.0-75.0) H Lymphocytes (%) (Auto) 13.0 % (20.0-45.0) L Monocytes (%) (Auto) 3.8 % (1.0-10.0) Eosinophils (%) (Auto) 1.1 % (0.0-3.0) Basophils (%) (Auto) 0.8 % (0.0-2.0) Sodium Level 149 MMOL/L (136-145) H Potassium Level 3.7 MMOL/L (3.5-5.1) Chloride Level 115 MMOL/L (98-107) H Carbon Dioxide Level 26 MMOL/L (21-32) Anion Gap 9 mmol/L (5-15) Blood Urea Nitrogen 31 mg/dL (7-18) H Creatinine 1.3 MG/DL (0.55-1.30) Estimat Glomerular Filtration Rate 57.3 mL/min (>60) Glucose Level 178 MG/DL (74-106) H Calcium Level 8.0 MG/DL (8.5-10.1) L Height (Feet): 6 Height (Inches): 0.00 Weight (Pounds): 252 General Appearance: WD/WN, no apparent distress Cardiovascular: normal rate Respiratory/Chest: normal breath sounds, no respiratory distress Abdominal Exam: normal bowel sounds, non tender, soft, GT site - Clean dry and intact Extremities: non-tender Efraín Hernandez NP Mar 22, 2018 12:49
--- NOTE | 2018-03-22 12:56 | Pulmonology Progress Note ---
Assessment/Plan Problems: (1) Acute encephalopathy (2) Diastolic CHF, chronic (3) Rapid atrial fibrillation (4) Diabetes (5) Cellulitis Assessment/Plan awake, comfortable failed swallow study PEG placed, tolerating feeding check electrolytes all notes reviewed dvt prophylaxis dc planning Subjective ROS Limited/Unobtainable: No Constitutional: Reports: no symptoms HEENT: Repors: no symptoms Respiratory: Reports: no symptoms Allergies: Coded Allergies: No Known Allergies (Unverified , 02/16/18) Objective Last 24 Hour Vital Signs Date Time Temp Pulse Resp B/P (MAP) Pulse Ox O2 Delivery O2 Flow Rate FiO2 03/22/18 12:00 97.3 96 18 130/59 (82) 97 03/22/18 11:12 68 03/22/18 09:00 68 105/53 03/22/18 09:00 105/53 03/22/18 08:00 97.2 68 18 105/53 (70) 98 03/22/18 07:10 98 Nasal Cannula 2.0 28 03/22/18 07:10 Nasal Cannula 2.0 28 03/22/18 05:28 118/74 03/22/18 04:00 97.8 78 20 118/74 (89) 99 03/22/18 00:00 97.8 73 20 125/79 (94) 95 03/21/18 23:50 113/87 03/21/18 21:00 Nasal Cannula 3.0 Nasal Cannula 3.0 Nasal Cannula 3.0 03/21/18 20:39 71 122/75 03/21/18 20:00 98.4 71 22 122/75 (91) 98 03/21/18 18:00 122/83 03/21/18 16:00 97.2 74 20 122/83 (96) 97 03/21/18 13:47 65 14 93 03/21/18 13:30 54 22 108/65 92 Nasal Cannula 2 03/21/18 13:20 54 22 101/63 92 Simple Mask 8 03/21/18 13:10 61 22 101/61 92 Simple Mask 8 03/21/18 13:09 65 14 95 03/21/18 13:05 68 22 98/64 92 Simple Mask 8 03/21/18 12:58 97.0 70 22 91/50 92 Simple Mask 8 Intake and Output 03/21/18 03/22/18 19:00 07:00 Intake Total 750 ml 880 ml Output Total 1600 ml Balance -850 ml 880 ml Free Water 150 ml 70 ml IV Total 550 ml 350 ml Tube Feeding 50 ml 460 ml Output Urine Total 1600 ml # Bowel Movements 1 Objective HEENT: normocephalic, atraumatic Respiratory/Chest: chest wall non-tender, lungs clear Cardiovascular: normal peripheral pulses, normal rate Abdomen: normal bowel sounds, soft, non tender Genitourinary: normal external genitalia Extremities: no clubbing Skin: no lesions Neurologic/Psychiatric: normal mood/affect Musculoskeletal: normal muscle bulk Laboratory Tests 03/22/18 04:50: White Blood Count 12.6H, Red Blood Count 5.33, Hemoglobin 14.3, Hematocrit 44.6 , Mean Corpuscular Volume 84, Mean Corpuscular Hemoglobin 26.8L, Mean Corpuscular Hemoglobin Concent 32.1, Red Cell Distribution Width 16.5H, Platelet Count 278, Mean Platelet Volume 8.4, Neutrophils (%) (Auto) 81.4H, Lymphocytes (%) (Auto) 13.0L, Monocytes (%) (Auto) 3.8, Eosinophils (%) (Auto) 1.1, Basophils (%) (Auto) 0.8, Sodium Level 149H, Potassium Level 3.7, Chloride Level 115H, Carbon Dioxide Level 26, Anion Gap 9, Blood Urea Nitrogen 31H, Creatinine 1.3, Estimat Glomerular Filtration Rate 57.3, Glucose Level 178H, Calcium Level 8.0L Current Medications Medications (Trade) Dose Ordered Sig/Roseline Route PRN Reason Start Time Stop Time Status Last Admin Dose Admin Acetaminophen (Tylenol) 650 mg Q4H PRN ORAL fever (temp>100.5F) 03/17/18 19:00 03/30/18 18:59 Carvedilol (Coreg) 25 mg EVERY 12 HOURS ORAL 03/20/18 09:00 04/19/18 08:59 03/21/18 20:39 Dextrose 1,000 ml @ 50 mls/hr Q20H IV 03/17/18 19:00 04/16/18 12:59 03/21/18 23:51 Dextrose (Dextrose 50%) 25 ml Q30M PRN IV Hypoglycemia 03/17/18 19:00 03/30/18 13:59 Dextrose (Dextrose 50%) 50 ml Q30M PRN IV Hypoglycemia 03/17/18 19:00 03/30/18 13:59 Digoxin (Lanoxin) 0.125 mg DAILY IVP 03/18/18 09:00 04/02/18 14:21 03/22/18 11:12 Haloperidol Lactate (Haldol) 5 mg Q4H PRN IM Agitation 03/17/18 19:00 03/31/18 18:59 03/19/18 13:34 Hydralazine HCl (Apresoline) 25 mg Q6HR ORAL 03/18/18 00:00 04/15/18 00:00 03/22/18 05:28 Insulin Aspart (NovoLOG) EVERY 6 HOURS SUBQ 03/18/18 00:00 04/10/18 11:59 03/22/18 12:29 Lorazepam (Ativan 2mg/ml 1ml) 2 mg Q4H PRN IV For Anxiety 03/19/18 15:15 03/26/18 15:14 03/19/18 15:16 Losartan Potassium (Cozaar) 25 mg DAILY ORAL 03/20/18 09:00 04/19/18 08:59 03/20/18 08:31 Nitroglycerin (Ntg) 0.4 mg Q5M PRN SL Prn Chest Pain 03/17/18 19:00 03/30/18 18:20 Ondansetron HCl (Zofran) 4 mg Q6H PRN IVP Nausea & Vomiting 03/17/18 21:00 04/14/18 20:59 Pantoprazole (Protonix) 40 mg DAILY IV 03/18/18 09:00 04/08/18 08:59 03/22/18 11:12 Polyethylene Glycol (Miralax) 17 gm DAILYPRN PRN ORAL Constipation 03/17/18 21:00 04/14/18 20:59 Spironolactone (Aldactone) 12.5 mg DAILY ORAL 03/20/18 09:00 04/19/18 08:59 03/20/18 08:30 Sunita Sahni MD Mar 22, 2018 12:55
--- NOTE | 2018-03-22 14:37 | General Progress Note ---
Assessment/Plan Problem List: (1) Diabetes ICD Codes: E11.9 - Type 2 diabetes mellitus without complications SNOMED: 34964303 (2) Cellulitis ICD Codes: L03.90 - Cellulitis, unspecified SNOMED: 924869104 (3) Acute renal failure ICD Codes: N17.9 - Acute kidney failure, unspecified SNOMED: 17594050 (4) Rapid atrial fibrillation ICD Codes: I48.91 - Unspecified atrial fibrillation SNOMED: 680613834 Status: stable, tolerating diet Assessment/Plan cardio f/u abx cbc bmp am gi eval dc to [facility] Subjective Constitutional: Reports: weakness Allergies: Coded Allergies: No Known Allergies (Unverified , 02/16/18) All Systems: reviewed and negative except above Subjective o2nc s/p peg sleeping Objective Last 24 Hour Vital Signs Date Time Temp Pulse Resp B/P (MAP) Pulse Ox O2 Delivery O2 Flow Rate FiO2 03/22/18 13:53 130/59 03/22/18 12:00 97.3 96 18 130/59 (82) 97 03/22/18 11:12 68 03/22/18 09:00 68 105/53 03/22/18 09:00 105/53 03/22/18 08:00 97.2 68 18 105/53 (70) 98 03/22/18 07:10 98 Nasal Cannula 2.0 28 03/22/18 07:10 Nasal Cannula 2.0 28 03/22/18 05:28 118/74 03/22/18 04:00 97.8 78 20 118/74 (89) 99 03/22/18 00:00 97.8 73 20 125/79 (94) 95 03/21/18 23:50 113/87 03/21/18 21:00 Nasal Cannula 3.0 Nasal Cannula 3.0 Nasal Cannula 3.0 03/21/18 20:39 71 122/75 03/21/18 20:00 98.4 71 22 122/75 (91) 98 03/21/18 18:00 122/83 03/21/18 16:00 97.2 74 20 122/83 (96) 97 Intake and Output 03/21/18 03/22/18 19:00 07:00 Intake Total 750 ml 880 ml Output Total 1600 ml Balance -850 ml 880 ml Free Water 150 ml 70 ml IV Total 550 ml 350 ml Tube Feeding 50 ml 460 ml Output Urine Total 1600 ml # Bowel Movements 1 Laboratory Tests 03/22/18 04:50: White Blood Count 12.6H, Red Blood Count 5.33, Hemoglobin 14.3, Hematocrit 44.6 , Mean Corpuscular Volume 84, Mean Corpuscular Hemoglobin 26.8L, Mean Corpuscular Hemoglobin Concent 32.1, Red Cell Distribution Width 16.5H, Platelet Count 278, Mean Platelet Volume 8.4, Neutrophils (%) (Auto) 81.4H, Lymphocytes (%) (Auto) 13.0L, Monocytes (%) (Auto) 3.8, Eosinophils (%) (Auto) 1.1, Basophils (%) (Auto) 0.8, Sodium Level 149H, Potassium Level 3.7, Chloride Level 115H, Carbon Dioxide Level 26, Anion Gap 9, Blood Urea Nitrogen 31H, Creatinine 1.3, Estimat Glomerular Filtration Rate 57.3, Glucose Level 178H, Calcium Level 8.0L Height (Feet): 6 Height (Inches): 0.00 Weight (Pounds): 252 General Appearance: lethargic EENT: normal ENT inspection Neck: normal alignment Cardiovascular: normal peripheral pulses, normal rate, regular rhythm Respiratory/Chest: chest wall non-tender, lungs clear, normal breath sounds Abdomen: normal bowel sounds, non tender, soft Extremities: normal inspection Edema: no edema noted Arm (L), no edema noted Arm (R), no edema noted Leg (L), no edema noted Leg (R), no edema noted Pedal (L), no edema noted Pedal (R), no edema noted Generalized Neurologic: motor weakness Skin: normal pigmentation, warm/dry Mick Garcia DO Mar 22, 2018 14:37
[2018-03-22] MEDS ORDERED: COREG25 MG ORAL (15:12)
[2018-03-22] MEDS ORDERED: ACETAMINOPHEN325 M1 ORAL (15:12)
[2018-03-22] MEDS ORDERED: HYDRALAZINE HCL25 M1 ORAL (15:13)
[2018-03-22] MEDS ORDERED: LOSARTAN POTASS25 M1 PO (15:13)
[2018-03-22] MEDS ORDERED: NITROSTAT0.4 M2 SL (15:15)
[2018-03-22] MEDS ORDERED: SPIRONOLACTONE25 MG ORAL (15:15)
[2018-03-22] MEDS ORDERED: MIRALAX17 G2 ORAL (15:15)
[2018-03-22] MEDS ORDERED: Tubing IV Secondary IV ONE (15:20)
[2018-03-22 16:00] VITALS: BP 122/72
--- NOTE | 2018-03-22 17:20 | Neurology Progress Note ---
Interim History Interim History Interim History Mr. Cornejo is non-verbal. He is being fed through his G-tube. He is awake and responsive. He can follow commands inconsistently. He is not communicative. He can move his hands on command but not his feet. He is able to protrude his tongue on command. Review of Systems Neuro Review of Systems Unable to obtain. Objective Physical Exam Last Vital Signs Date Time Temp Pulse Resp B/P (MAP) Pulse Ox O2 Delivery O2 Flow Rate FiO2 03/22/18 16:00 97.1 71 19 122/72 (89) 97 03/22/18 07:10 Nasal Cannula 2.0 28 Laboratory Tests Test 03/22/18 04:50 White Blood Count 12.6 K/UL (4.8-10.8) H Red Blood Count 5.33 M/UL (4.70-6.10) Hemoglobin 14.3 G/DL (14.2-18.0) Hematocrit 44.6 % (42.0-52.0) Mean Corpuscular Volume 84 FL (80-99) Mean Corpuscular Hemoglobin 26.8 PG (27.0-31.0) L Mean Corpuscular Hemoglobin Concent 32.1 G/DL (32.0-36.0) Red Cell Distribution Width 16.5 % (11.6-14.8) H Platelet Count 278 K/UL (150-450) Mean Platelet Volume 8.4 FL (6.5-10.1) Neutrophils (%) (Auto) 81.4 % (45.0-75.0) H Lymphocytes (%) (Auto) 13.0 % (20.0-45.0) L Monocytes (%) (Auto) 3.8 % (1.0-10.0) Eosinophils (%) (Auto) 1.1 % (0.0-3.0) Basophils (%) (Auto) 0.8 % (0.0-2.0) Sodium Level 149 MMOL/L (136-145) H Potassium Level 3.7 MMOL/L (3.5-5.1) Chloride Level 115 MMOL/L (98-107) H Carbon Dioxide Level 26 MMOL/L (21-32) Anion Gap 9 mmol/L (5-15) Blood Urea Nitrogen 31 mg/dL (7-18) H Creatinine 1.3 MG/DL (0.55-1.30) Estimat Glomerular Filtration Rate 57.3 mL/min (>60) Glucose Level 178 MG/DL (74-106) H Calcium Level 8.0 MG/DL (8.5-10.1) L Neurologic Exam Objective PHYSICAL EXAMINATION: GENERAL: He is a well developed, well nourished, gentleman, lying in bed. HEAD: Normocephalic and atraumatic. EENT: Examination benign. NECK: No neck rigidity was observed. NEUROLOGIC EXAMINATION: MENTAL STATUS EXAMINATION: He was awake but not alert. He was non-verbal. He followed simple commands inconsistently. Further mental status testing was impossible. SPEECH: He was non-verbal. LANGUAGE: Could not be tested adequately. CRANIAL NERVE EXAMINATION: II: He did blink to threat but not consistently. III, IV & : The external ocular movements were present. The pupils were 3 mm in diameter and did not react to light. V & VII: The corneal reflexes were equal. VIII: He did respond to sounds and had no nystagmus. IX & X: The gag reflex was absent. XI: The sternocleidomastoids and trapezii did function. XII: He protruded his tongue on command. MOTOR SYSTEM: The tone was normal in all 4 extremities. Examination of muscle mass revealed no focal wasting. 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 Examination of power was impossible to perform accurately. He was able to give a good squeeze with both hands but was unable to move the lower extremities. SENSORY EXAMINATION: He did not respond to deep painful stimuli. REFLEXES: 0 at the biceps, triceps, brachioradialis, knees, and ankles. The right plantar response could not be tested as he had no toes, and the left plantar response was mute. COORDINATION, STANCE & GAIT: Could not be tested. Impression/Recommendations Diagnostic Impression 1. Mr. Dustin Cornejo is a 57-year-old, gentleman, of unknown handedness, who was hospitalized for right lower extremity cellulitis and then in the hospital deteriorated to a point where became quite altered with regards to his mental state on 03/05/2018 and was transferred to the ICU. He was noted to have atrial fibrillation with a rapid ventricular rate and shortness of breath related to hypoxic respiratory failure and then became agitated as a result of which he was given multiple doses of Ativan, Haldol, and morphine. 2. He is non-verbal today. He is being fed through his G-tube. He is awake but not alert. He can follow commands inconsistently. He is not communicative. He can move his hands on command but not his feet. He is able to protrude his tongue on command. 3. On neurological examination, at this time, he is awake. He he follows commands more consistently. He does blink to threat inconsistently. 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 He does not respond to deep pain. He does not demonstrate any lateralizing findings. He has globally absent deep tendon reflexes, and the plantar response on the left side is mute. 4. His latest laboratory data on my initial evaluation revealed his WBC count was elevated to 13,400. He had his last ESR on 03/02/2018 and it was 7. His blood gases revealed that he had a pH of 7.48, pCO2 of 35, and pO2 of 51. His latest chemistry panel revealed that his sodium was elevated to 155. His chloride was elevated to 118. His BUN was elevated to 41. His creatinine was elevated to 1.3. His glucose was elevated to 208. His total bilirubin was elevated at 2.8. His AST, ALT, and alkaline phosphatase were all elevated. His albumin was low at 2.2. His urine toxicology screen on admission revealed that tetrahydrocannabinols were present. His serologies were negative for HIV. 5. Further laboratory tests revealed a normal B12, Folate, TSH but the Hb A1C was elevated at 9.2%. 6. The CT of the brain done on 03/07/18 revealed atrophy and deep white matter disease but no acute pathology. 7. The EEG revealed a moderate toxic/metabolic encephalopathy. 8. The MRI of the brain done on 03/19/18 revealed no acute pathology. 9. The patient's history, neurological examination, laboratory data, EEG and imaging are most compatible with a severe toxic metabolic encephalopathy, which is multifactorial. The recent cardiac arrest has led to an anoxic/ischemic encephalopathy. Acute intracranial pathology of significance has been excluded. 10. His encephalopathy is stable. Recommendations 1. Continue present management. 2. Keep the patient off all mind-altering drugs. 3. Correct toxic/metabolic imbalances the best possible. Dawit Marshall M.D., M.S.P.H. Dawit Marshall MD Mar 22, 2018 17:20
[2018-03-22 20:00] VITALS: BP 129/69
--- NOTE | 2018-03-23 15:04 | Discharge Summary ---
Discharge Summary Discharge Summary _ DATE OF ADMISSION: 02/28/2018 DATE OF DISCHARGE: 03/22/2018 DISCHARGED BY: Dr. Mick Garcia CONSULTANTS: Dr. Dawit Stuart BRIEF HOSPITAL COURSE: Patient is a 57-year-old male, from [facility], presented to ER due to worsening lower extremity cellulitis. He has medical history of atrial fibrillation, lower extremity cellulitis, drug abuse, renal failure, CHF and diabetes. On evaluation at ED, he was noted to have severe cellulitis of bilateral lower extremity. Blood work did not show any leukocytosis. He was admitted for cellulitis as he would require admission for IV antibiotics. Prior to going to the room. Patient became very aggressive and was throwing things and threatening the staff. Security was called. Patient was sedated and was placed on restraints. Patient had tachycardia. He received metoprolol. He was transferred to ICU. Eliquis was resumed for atrial fibrillation. He was placed on Cardizem drip. He was given IV vancomycin and Ancef. X-ray of the left foot and tibia-fibula did not show any acute process. X-ray of the right foot tibiofibular was twice negative. He was provided wound care Echocardiogram done showed LVEF 25% with associated severe mitral regurgitation. He was given Lasix drip for afterload reduction with hydralazine. He had elevated LFTs. Abdominal ultrasound showed cholelithiasis with borderline gallbladder wall thickening. Negative for dilated ducts. GI and surgeon was consulted. Hepatitis panel was negative. HIV panel was negative. Patient was short of breath. He was placed on Venturi mask. He was given nebulizer treatment. Acute respiratory failure, possibly due to A. fib, rule out probable pneumonia. Chest x-ray showed improved aeration of the right lung , presumably improved atelectasis; right lower lobe infiltrate. He was given Zosyn and is seen. He underwent HIDA scan. HIDA was inconclusive but with low probability for acute cholecystitis. He was noted to have poor responsiveness. He was given multiple doses of Ativan , Haldol and morphine. Neurologist was consulted for evaluation of encephalopathy. CT of the brain revealed atrophy but no acute pathology. EEG revealed moderate toxic/metabolic encephalopathy. On 03/09/2018 patient went into cardiac arrest. Blue was called. Patient was orally intubated. Central line was inserted to the right femoral. Sputum culture showed ESBL E. coli. Zosyn was switched to ertapenem. He was extubated on 03/16/2018. He was continued on respiratory treatment. Right femoral central line was removed on 03/18/2018. Culture from catheter tip did not show any growth. Patient had 2 small DTI to the sacrum. Wound care was rendered. He was more awake and responsive. He was able to follow commands inconsistently. Encephalopathy was stable. He underwent swallow evaluation. He failed swallow study. On March 21, 2018, he underwent EGD with PEG tube placement. He was started on tube feeding. He was eventually transferred to [facility]. FINAL DIAGNOSES: Severe toxic metabolic encephalopathy Aspiration pneumonia Status post cardiac arrest that led to anoxic/ischemic encephalopathy Acute respiratory failure requiring intubation status post extubation Acute renal failure A. fib with RVR Acute on chronic systolic and diastolic heart failure Severe mitral regurgitation Bilateral lower extremity purulent cellulitis Diabetes mellitus Dysphagia status post PEG tube placement Abnormal LFTs Cholelithiasis Schizoaffective disorder Hypernatremia CKD Two small DTI to sacrum DISPOSITION: Patient was discharged to [facility]. DISCHARGE MEDICATIONS: Refer to Discharge Medication List. I have been assigned to dictate discharge summary on this account, and I was not involved in the patient's management. Armida Huntley NP Mar 23, 2018 15:04
== END 2018-03-22 22:15 | DRG 383 ==
LOC: EDBD 17:26 → EMR 18:52 → OBSVTOIN 20:17 → 4E 20:17 → EDBEDREQ 21:08 → 2E 03-01 03:04 → ICU 03-02 10:34 → 2E 03-05 05:56 → 2W 03-05 12:55 → ICU 03-05 14:30 → 2W 03-06 19:33 → ICU 03-08 22:50 → 2W 03-15 21:28 → 4E 03-17 18:25
PROC: 5A1935Z Respiratory Ventilation, Less than 24 Consecutive Hours (ICD-10-PCS; principal; 2018-03-09)
PROC: 0BH17EZ Insertion of Endotracheal Airway into Trachea, Via Natural or Artificial Opening (ICD-10-PCS; principal; 2018-03-09)
PROC: 06HM33Z Insertion of Infusion Device into Right Femoral Vein, Percutaneous Approach (ICD-10-PCS; principal; 2018-03-09)
PROC: 0DH63UZ Insertion of Feeding Device into Stomach, Percutaneous Approach (ICD-10-PCS; 2018-03-21 12:43)
DX: L03.116 Cellulitis of left lower limb (principal); J96.01 Acute respiratory failure with hypoxia; J69.0 Pneumonitis due to inhalation of food and vomit; G92 Toxic encephalopathy; G93.1 Anoxic brain damage, not elsewhere classified; I50.43 Acute on chronic combined systolic (congestive) and diastolic (congestive) heart failure; E46 Unspecified protein-calorie malnutrition; L89.150 Pressure ulcer of sacral region, unstageable; R13.10 Dysphagia, unspecified; N17.9 Acute kidney failure, unspecified; I48.91 Unspecified atrial fibrillation; L03.115 Cellulitis of right lower limb; I46.9 Cardiac arrest, cause unspecified; I13.0 Hypertensive heart and chronic kidney disease with heart failure and stage 1 through stage 4 chronic kidney disease, or unspecified chronic kidney disease; I34.0 Nonrheumatic mitral (valve) insufficiency; K80.20 Calculus of gallbladder without cholecystitis without obstruction; R79.89 Other specified abnormal findings of blood chemistry; E87.0 Hyperosmolality and hypernatremia; E11.22 Type 2 diabetes mellitus with diabetic chronic kidney disease; N18.9 Chronic kidney disease, unspecified; I42.9 Cardiomyopathy, unspecified; F19.10 Other psychoactive substance abuse, uncomplicated; F15.10 Other stimulant abuse, uncomplicated; Z79.82 Long term (current) use of aspirin; Z89.411 Acquired absence of right great toe; Z89.421 Acquired absence of other right toe(s); R00.0 Tachycardia, unspecified; E11.65 Type 2 diabetes mellitus with hyperglycemia; F25.0 Schizoaffective disorder, bipolar type; L97.829 Non-pressure chronic ulcer of other part of left lower leg with unspecified severity
CPT/HCPCS: 36415; 36569; 36600; 70450; 70551; 71045; 74018; 76700; 76937; 78266; 80048; 80053; 80076; 80162; 80202; 80307; 82043; 82044; 82248; 82306; 82570; 82607; 82746; 82803; 82962; 83036; 83735; 83880; 84100; 84300; 84443; 85007; 85025; 85610; 85651; 85730; 86140; 86592; 86703; 86705; 86709; 86790; 86803; 87040; 87070; 87086; 87181; 87205; 87340; 89050; 92950; 93005; 93925; 93970; 94002; 94003; 94150; 94660; 94664; 94760; 95819; 96365; 96366; 96372; 96375; 99291; J1815; J8499